=== PATIENT | female | born 1950 | race Caucasian/White ===

== ENCOUNTER → 2017-05-29 09:09 | Outpatient (CLI) | payer OTHER, SELFPAY ==
--- NOTE | 2017-05-29 10:12 | US_ITS ---
STUDY: ABDOMINAL ULTRASOUND - RIGHT UPPER QUADRANT REASON FOR VISIT: Female, 66 years old. Abnormal liver enzymes. TECHNIQUE: Ultrasound evaluation of the right upper quadrant was performed with real-time and static le-scale imaging. TECHNICAL QUALITY: Adequate. COMPARISON: None. FINDINGS: Liver: The liver measures 12.1 cm. There is normal echogenicity of the liver. The bile ducts are within normal limits. There is hepatic color flow. The direction of portal flow is hepatopetal. There is no demonstrated mass lesion. Gallbladder: Normal distended gallbladder. The gallbladder wall measures 1.6 mm. There is a negative sonographic Schilling's sign. There is no pericholecystic fluid. There are no gallstones. Common Bile Duct (C.B.D.): The common bile duct measures 4.7 mm. Pancreas: Normal size of the head, body and tail of the pancreas. There is normal echogenicity of the pancreas. There is no demonstrated pancreatic mass or cyst. Right Kidney: Normal size of the right kidney. The right kidney measures 8.5 cm x 4.4 cm x 4.2 cm. Normal renal cortex. The right cortex measures 1.2 cm. There is a 6 mm x 5 mm x 6 mm renal cyst. There is no right hydronephrosis. US/Liver IMPRESSION: Small right renal cyst. Electronically Signed: Bandar Ponce MD at 15:28 EST Tel [phone], Service support ,
== END ==
PROVIDERS: Family Provider Family Medicine; PCP Family Medicine; Visit Provider Internal Medicine Rheumatology
DX: M06.4 Inflammatory polyarthropathy (principal); M15.9 Polyosteoarthritis, unspecified; M51.36 Other intervertebral disc degeneration, lumbar region; M50.30 Other cervical disc degeneration, unspecified cervical region; K21.9 Gastro-esophageal reflux disease without esophagitis
CPT/HCPCS: 76705

== ENCOUNTER → 2017-06-16 07:35 | Outpatient (CLI) | payer OTHER, SELFPAY ==
[2017-06-16 10:26] LABS: AST(SGOT) 44 U/L (15-37); Alanine Aminotransfer ALT/SGPT 61 U/L (13-56); Albumin, Serum 3.8 g/dL (3.2-5.0); Alkaline Phosphatase 116 U/L (45-117); Bilirubin, Direct 0.13 mg/dL (0.00-0.30); Globulin 3.7 g/dL (2.2-4.2); Protein, Total 7.5 g/dL (6.4-8.2)
== END ==
PROVIDERS: Family Provider Family Medicine; PCP Family Medicine; Visit Provider Internal Medicine Rheumatology
DX: M06.4 Inflammatory polyarthropathy (principal); M51.36 Other intervertebral disc degeneration, lumbar region; M50.30 Other cervical disc degeneration, unspecified cervical region; M15.9 Polyosteoarthritis, unspecified; K21.9 Gastro-esophageal reflux disease without esophagitis
CPT/HCPCS: 36415; 80076

== ENCOUNTER → 2017-09-01 07:16 | Outpatient (CLI) | payer OTHER, SELFPAY ==
[2017-09-01 09:53] LABS: Absolute Neutrophil Count 2.8 X10^3/uL (2.0-7.7); Basophil# 0.07 X10^3/uL; Basophil% 1.4 % (0-1); Eosinophil# 0.28 X10^3/uL; Eosinophils% 5.5 % (0-5); Hematocrit 46.4 % (37-47); Hemoglobin 15.7 g/dl (12.0-15.0); Lymphocyte % 21.4 % (19-41); Mean Corp Hgb Conc 33.8 g/gl (32-36); Mean Corpuscular Hgb 30.3 pg (27.0-32.0); Mean Corpuscular Volume 89.6 fL (81-99); Mean Platelet Vol. 10.5 fl (6.2-12.0); Monocyte# 0.85 X10^3/uL; Monocyte% 16.6 % (0-10); Neutrophil # 2.83 X10^3/uL (2.7-7.7); Neutrophil % 55.1 % (47-70); Platelet Count 264 K/mm3 (150-450); RBC Distribution Width CV 12.9 % (11.6-14.6); RBC Distribution Width SD 42.7 fl (35.1-43.9); Red Blood Count 5.18 M/mm3 (4.2-5.4); White Blood Count 5.1 K/mm3 (4.4-11.0)
[2017-09-01 10:14] LABS: POSITIVE COUNT NO; POSITIVE DIFFERENTIAL NO; POSITIVE MORPHOLOGY NO
[2017-09-01 10:28] LABS: ALB/GLOB Ratio 0.9 RATIO (0.9-2.4); AST(SGOT) 73 U/L (15-37); Alanine Aminotransfer ALT/SGPT 124 U/L (13-56); Albumin, Serum 3.5 g/dL (3.2-5.0); Alkaline Phosphatase 156 U/L (45-117); Anion Gap 7 (5-15); BUN 15 mg/dL (7-18); BUN/Creat Ratio 18.2 RATIO (10-20); Calcium,Total 8.8 mg/dL (8.5-10.1); Chloride 106 mmol/L (98-107); Creatinine, Serum 0.82 mg/dL (0.55-1.02); EST Glomerular Filtration Rate 74 mL/min (>60); Est Glom Filt Rate - Afr Amer 89 mL/min (>60); Glucose 88 mg/dL (74-106); Potassium 3.8 mmol/L (3.5-5.1); Protein, Total 7.5 g/dL (6.4-8.2); Sodium Level 143 mmol/L (136-145)
== END ==
PROVIDERS: Family Provider Family Medicine; PCP Family Medicine; Visit Provider Internal Medicine Rheumatology
DX: M06.4 Inflammatory polyarthropathy (principal); M15.9 Polyosteoarthritis, unspecified; M35.00 Sjogren syndrome, unspecified; K21.9 Gastro-esophageal reflux disease without esophagitis; M51.36 Other intervertebral disc degeneration, lumbar region; M50.30 Other cervical disc degeneration, unspecified cervical region
CPT/HCPCS: 36415; 80053; 85025

== ENCOUNTER → 2017-10-01 15:42 | Outpatient (CLI) | payer OTHER, SELFPAY ==
--- NOTE | 2017-10-01 15:42 | DT_ITS ---
This patient was seen during an EMR downtime September 29, 2017 - October 06, 2017. This patient may have a combination of paper and electronic documentation or all paper documentation. All documentation is viewable within the e-chart portion of [facility] for each patient visit.
[2017-10-06 15:37] LABS: Ferritin 106 ng/mL (8-252)
[2017-10-06 15:38] LABS: AST(SGOT) 28 U/L (15-37); Alanine Aminotransfer ALT/SGPT 41 U/L (13-56); Alkaline Phosphatase 104 U/L (45-117); Bilirubin, Direct 0.13 mg/dL (0.00-0.30); Globulin 3.9 g/dL (2.2-4.2); Protein, Total 7.9 g/dL (6.4-8.2)
== END ==
PROVIDERS: Family Provider Family Medicine; PCP Family Medicine; Visit Provider Internal Medicine Gastroenterology
DX: K75.9 Inflammatory liver disease, unspecified (principal)
CPT/HCPCS: 36415; 80076; 82103; 82390; 82728; 83516

== ENCOUNTER → 2017-11-18 07:01 | Outpatient (CLI) | payer OTHER, SELFPAY ==
[2017-11-18 10:19] LABS: Absolute Lymphocyte Count 1.35 X10^3/ul (0.83-4.51); Basophil# 0.05 X10^3/uL; Eosinophil# 0.17 X10^3/uL; Eosinophils% 3.2 % (0-5); Hematocrit 45.9 % (37-47); Hemoglobin 15.4 g/dl (12.0-15.0); Lymphocyte # 1.35 X10^3/ul (4.0); Lymphocyte % 25.8 % (19-41); Mean Corp Hgb Conc 33.6 g/gl (32-36); Mean Corpuscular Hgb 30.4 pg (27.0-32.0); Mean Corpuscular Volume 90.7 fL (81-99); Mean Platelet Vol. 10.2 fl (6.2-12.0); Monocyte# 0.68 X10^3/uL; Neutrophil # 2.99 X10^3/uL (2.7-7.7); Platelet Count 273 K/mm3 (150-450); RBC Distribution Width CV 12.8 % (11.6-14.6); RBC Distribution Width SD 42.1 fl (35.1-43.9); Red Blood Count 5.06 M/mm3 (4.2-5.4); White Blood Count 5.2 K/mm3 (4.4-11.0)
[2017-11-18 10:25] LABS: POSITIVE COUNT NO; POSITIVE DIFFERENTIAL NO; POSITIVE MORPHOLOGY NO
[2017-11-18 10:37] LABS: ALB/GLOB Ratio 0.9 RATIO (0.9-2.4); AST(SGOT) 51 U/L (15-37); Alanine Aminotransfer ALT/SGPT 81 U/L (13-56); Albumin, Serum 3.6 g/dL (3.2-5.0); Alkaline Phosphatase 136 U/L (45-117); Anion Gap 4 (5-15); BUN 12 mg/dL (7-18); BUN/Creat Ratio 12.8 RATIO (10-20); Chloride 105 mmol/L (98-107); Creatinine, Serum 0.93 mg/dL (0.55-1.02); EST Glomerular Filtration Rate 64 mL/min (>60); Est Glom Filt Rate - Afr Amer 77 mL/min (>60); Globulin 3.9 g/dL (2.2-4.2); Glucose 83 mg/dL (74-106); Potassium 3.8 mmol/L (3.5-5.1); Protein, Total 7.5 g/dL (6.4-8.2); Sodium Level 140 mmol/L (136-145)
== END ==
PROVIDERS: Family Provider Family Medicine; PCP Family Medicine; Visit Provider Internal Medicine Rheumatology
DX: M06.4 Inflammatory polyarthropathy (principal); M15.9 Polyosteoarthritis, unspecified; M35.00 Sjogren syndrome, unspecified; M51.36 Other intervertebral disc degeneration, lumbar region; M50.30 Other cervical disc degeneration, unspecified cervical region; K21.9 Gastro-esophageal reflux disease without esophagitis
CPT/HCPCS: 36415; 80053; 85025

== ENCOUNTER → 2018-01-02 07:06 | Outpatient (CLI) | payer OTHER, SELFPAY ==
[2018-01-02 11:42] LABS: AST(SGOT) 65 U/L (15-37); Alanine Aminotransfer ALT/SGPT 73 U/L (13-56); Albumin, Serum 3.6 g/dL (3.2-5.0); Alkaline Phosphatase 116 U/L (45-117); Bilirubin, Direct 0.06 mg/dL (0.00-0.30); CRP < 2.90 mg/L (0.0-3.0); GGTP 161 U/L (5-55); Globulin 3.8 g/dL (2.2-4.2); Protein, Total 7.4 g/dL (6.4-8.2)
== END ==
PROVIDERS: Family Provider Family Medicine; PCP Family Medicine; Visit Provider Internal Medicine Gastroenterology
DX: K75.9 Inflammatory liver disease, unspecified (principal)
CPT/HCPCS: 36415; 80076; 82977; 86140

== ENCOUNTER → 2018-05-11 07:03 | Outpatient (CLI) | payer OTHER, SELFPAY ==
[2018-05-11 10:09] LABS: Absolute Neutrophil Count 2.8 X10^3/uL (2.0-7.7); Basophil# 0.05 X10^3/uL; Eosinophil# 0.17 X10^3/uL; Eosinophils% 3.4 % (0-5); Hemoglobin 15.9 g/dl (12.0-15.0); Lymphocyte % 27.7 % (19-41); Mean Corp Hgb Conc 33.8 g/gl (32-36); Mean Corpuscular Hgb 30.3 pg (27.0-32.0); Mean Corpuscular Volume 89.7 fL (81-99); Mean Platelet Vol. 10.3 fl (6.2-12.0); Monocyte# 0.65 X10^3/uL; Monocyte% 12.8 % (0-10); Neutrophil # 2.79 X10^3/uL (2.7-7.7); Neutrophil % 55.1 % (47-70); Platelet Count 307 K/mm3 (150-450); RBC Distribution Width CV 12.8 % (11.6-14.6); RBC Distribution Width SD 42.3 fl (35.1-43.9); Red Blood Count 5.24 M/mm3 (4.2-5.4); White Blood Count 5.1 K/mm3 (4.4-11.0)
[2018-05-11 10:18] LABS: AST(SGOT) 40 U/L (15-37); Alanine Aminotransfer ALT/SGPT 72 U/L (13-56); Albumin, Serum 3.7 g/dL (3.2-5.0); Alkaline Phosphatase 129 U/L (45-117); Anion Gap 6 (5-15); BUN 17 mg/dL (7-18); BUN/Creat Ratio 19.1 RATIO (10-20); Calcium,Total 8.7 mg/dL (8.5-10.1); Chloride 105 mmol/L (98-107); Creatinine, Serum 0.89 mg/dL (0.55-1.02); EST Glomerular Filtration Rate 68 mL/min (>60); Est Glom Filt Rate - Afr Amer 82 mL/min (>60); Globulin 3.8 g/dL (2.2-4.2); Glucose 90 mg/dL (74-106); POSITIVE COUNT NO; POSITIVE DIFFERENTIAL NO; POSITIVE MORPHOLOGY NO; Potassium 3.8 mmol/L (3.5-5.1); Protein, Total 7.5 g/dL (6.4-8.2); Sodium Level 141 mmol/L (136-145)
== END ==
PROVIDERS: Family Provider Family Medicine; PCP Family Medicine; Referring Provider Internal Medicine Rheumatology; Visit Provider Internal Medicine Rheumatology
DX: M06.4 Inflammatory polyarthropathy (principal); M15.9 Polyosteoarthritis, unspecified; M35.00 Sjogren syndrome, unspecified; M51.36 Other intervertebral disc degeneration, lumbar region; M50.30 Other cervical disc degeneration, unspecified cervical region; K21.9 Gastro-esophageal reflux disease without esophagitis
CPT/HCPCS: 36415; 80053; 85025

== ENCOUNTER → 2018-07-20 08:10 | Outpatient (CLI) | payer OTHER, SELFPAY ==
--- NOTE | 2018-07-20 08:13 | BI_ITS ---
MAMMOGRAPHY - BILATERAL SCREENING REASON FOR EXAM: Female, 68 years old. Routine annual screening examination. PERTINENT HISTORY: Aunt with breast cancer. TECHNIQUE: Digital bilateral breast silvia (3D mammographic acquisition) in the CC and MLO projections. 2-D mediolateral oblique (MLO) and craniocaudad (CC) views of both breasts were obtained. CAD: Full Field Digital Mammography with Computer Added Detection was performed. COMPARISON: Comparison is made with prior study dated May 12, 2017 and March 14, 2016. FINDINGS: Breast Composition: The breasts are heterogeneously dense, which may obscure small masses. There are no dominant masses or suspicious calcifications. Stable appearance of the bilateral axillary lymph nodes. No other significant abnormalities are identified. There has been no significant change since the prior study. BI/SCREENING MAMM (CAD), BILAT IMPRESSION: Stable bilateral screening mammogram. Yearly follow-up mammogram recommended. (A) ASSESSMENT CATEGORY: BIRADS Category 2: Benign. A letter regarding these results will be sent to the patient by the facility within 30 days. Approximately 10% of breast cancers are not detected by mammography. A normal mammogram should not delay biopsy of a clinically suspicious abnormality. [id number] Electronically Signed: Bandar Ponce, at 9:42 EDT , Service support ,
== END ==
PROVIDERS: Family Provider Family Medicine; PCP Family Medicine; Visit Provider Obstetrics & Gynecology
DX: Z12.31 Encounter for screening mammogram for malignant neoplasm of breast (principal)
CPT/HCPCS: 77063; 77067

== ENCOUNTER → 2020-08-23 11:56 | Outpatient (CLI) | payer MEDICARE, OTHER, SELFPAY ==
[2020-08-23 15:15] LABS: Absolute Lymphocyte Count 1.55 X10^3/uL (0.83-4.51); Basophil# 0.07 X10^3/uL; Basophil% 1.3 % (0-1); Eosinophil# 0.18 X10^3/uL; Eosinophils% 3.3 % (0-5); Hematocrit 47.6 % (37-47); Hemoglobin 15.4 g/dL (12.0-15.0); Lymphocyte # 1.55 X10^3/ul (0.83-4.51); Lymphocyte % 28.7 % (19-41); Mean Corp Hgb Conc 32.4 g/dL (32-36); Mean Corpuscular Hgb 29.4 pg (27.0-32.0); Mean Platelet Vol. 10.7 fl (6.2-12.0); Monocyte% 11.1 % (0-10); NRBC Flagged by Analyzer 0 % (0-5); Neutrophil # 2.99 X10^3/uL (2.7-7.7); Neutrophil % 55.2 % (47-70); Platelet Count 272 K/mm3 (150-450); RBC Distribution Width CV 12.7 % (11.6-14.6); RBC Distribution Width SD 42.1 fl (35.1-43.9); Red Blood Count 5.23 M/mm3 (4.2-5.4); White Blood Count 5.4 K/mm3 (4.4-11.0)
[2020-08-23 15:41] LABS: ALB/GLOB Ratio 0.9 RATIO (0.9-2.4); AST(SGOT) 31 U/L (15-37); Alanine Aminotransfer ALT/SGPT 59 U/L (13-56); Albumin, Serum 3.5 g/dL (3.2-5.0); Alkaline Phosphatase 128 U/L (45-117); Anion Gap 3 (5-15); BUN 16 mg/dL (7-18); BUN/Creat Ratio 18.9 RATIO (10-20); Calcium,Total 9.4 mg/dL (8.5-10.1); Chloride 105 mmol/L (98-107); Cholesterol 193 mg/dL (200); Creatinine, Serum 0.84 mg/dL (0.55-1.02); EST Glomerular Filtration Rate 71 mL/min (>60); Est Glom Filt Rate - Afr Amer 86 mL/min (>60); Ferritin 110 ng/mL (8-252); Glucose 89 mg/dL (74-106); High Density Lipoprotein 53 mg/dL; Iron 110 ug/dL (50-170); Iron Binding Capacity,Total 379 ug/dL (250-450); Protein, Total 7.5 g/dL (6.4-8.2); Sodium Level 138 mmol/L (136-145); T4 Free Direct 0.74 ng/dL (0.76-1.46); Thyroid Stim Hormone (TSH) 2.52 uIU/mL (0.358-3.74); Triglycerides 96 mg/dL; Very Low Density Lipoprotein 19 mg/dL (5-40)
[2020-08-24 08:40] LABS: Vitamin D,25 Hydroxy 29.1 ng/mL
== END ==
PROVIDERS: PCP Family Medicine; Referring Provider Family Medicine; Visit Provider Family Medicine
DX: D75.1 Secondary polycythemia (principal); E55.9 Vitamin D deficiency, unspecified; E03.9 Hypothyroidism, unspecified; R79.89 Other specified abnormal findings of blood chemistry
CPT/HCPCS: 36415; 80053; 80061; 82306; 82728; 83540; 83550; 84432; 84439; 84443; 84466; 85025; 86376; 86800

== ENCOUNTER → 2020-08-29 09:12 | Outpatient (CLI) | payer MEDICARE, OTHER, SELFPAY ==
--- NOTE | 2020-08-29 09:17 | US_ITS ---
STUDY: THYROID ULTRASOUND REASON FOR EXAM: Female, 70 years old. Thyroid nodule. TECHNIQUE: Ultrasound evaluation of the thyroid was performed with real-time and static le-scale imaging. COMPARISON: None. FINDINGS: RIGHT LOBE: The right lobe of the thyroid gland measures 4.7 cm x 1.5 cm x 1.3 cm. There is a homogeneous echotexture. There is a 5 mm x 3 mm x 3 mm solid/cystic nodule in the midportion of the right lobe. LEFT LOBE: The left lobe of the thyroid gland measures 3.9 cm x 1.5 cm x 1 cm. There is a homogeneous echotexture. There are no demonstrated solid, cystic or complex lesions. ISTHMUS: The isthmus measures 2 mm. The regional lymph nodes are normal. US/Thyroid IMPRESSION: There is a 5 mm x 3 mm x 3 mm solid/cystic nodule in the midportion of the right lobe of the thyroid. Correlation with nuclear medicine thyroid uptake and scan is recommended. Electronically Signed: Bandar Ponce MD at 14:57 EDT , Service support ,
--- NOTE | 2020-08-29 09:51 | BD_ITS ---
STUDY: DUAL ENERGY X-RAY ABSORPTIOMETRY / DXA REASON FOR EXAM: Female, 70 years old. [id number] TECHNIQUE: Bone Mineral Density (BMD) measurements of lumbar spine and bilateral hips were obtained. COMPARISON: None. FINDINGS: Lumbar Spine (L1-L4): g/cm2 (0.916) / T-score (-2.4) / Z-score (-0.7) Findings are suggestive of osteopenia with a high fracture risk. Left Femur Total: g/cm2 (0.925) / T-score (-0.7) / Z-score (0.7) Left Femoral Neck: g/cm2 (0.938) / T-score (-0.7) / Z-score (0.9) Right Femur Total: g/cm2 (0.879) / T-score (-1.0) / Z-score (0.3) Right Femoral Neck: g/cm2 (0.939) / T-score (-0.7) / Z-score (0.9) BD/Dexa Bone Density Study IMPRESSION: The patient is considered osteopenic as outlined below according to World Alex Organization (WHO) criteria with a high fracture risk. Reference Information: The T-score is the number of standard deviations above or below the standard which is normal for young adults at their peak bone mineral density. The World Health Organization (WHO) interprets the T-scores as follows: Above -1 Normal bone density Between -1 and -2.5 Osteopenia Equal to / or below -2.5 Osteoporosis As a practical clinical guideline, osteopenia may be graded as follows: Mild -1 through -1.5 Moderate -1.6 through -2.0 Severe -2.1 through -2.4 The Z-score is the number of standard deviations above or below age-matched controls. A Z-score of less than -1.5 would be considered abnormal. References: 1. NIH Osteoporosis and Related Bone Diseases www osteo.org 2. International Society for Clinical Densitometry www iscd.org 3. National Osteoporosis Foundation www nof.org Electronically Signed: Bandar Ponce MD at 15:52 EDT , Service support ,
== END ==
PROVIDERS: PCP Family Medicine; Referring Provider Family Medicine; Visit Provider Family Medicine
DX: E04.1 Nontoxic single thyroid nodule (principal); Z78.0 Asymptomatic menopausal state; M85.80 Other specified disorders of bone density and structure, unspecified site
CPT/HCPCS: 76536; 77080

== ENCOUNTER → 2020-09-01 08:32 | Outpatient (CLI) | payer MEDICARE, OTHER, SELFPAY ==
[2020-09-11 10:00] LABS: Anti-Thyroglobulin AB 25.1 IU/mL (0.0-0.9); Thyroid Peroxidase AB 12 IU/mL (0-34)
== END ==
PROVIDERS: PCP Family Medicine; Referring Provider Family Medicine; Visit Provider Family Medicine
DX: R79.89 Other specified abnormal findings of blood chemistry (principal)
CPT/HCPCS: 36415; 84432; 86376; 86800

== ENCOUNTER → 2020-09-06 11:25 | Outpatient (CLI) | payer MEDICARE, OTHER, SELFPAY ==
[2020-09-06 16:42] LABS: AST(SGOT) 47 U/L (15-37); Alanine Aminotransfer ALT/SGPT 76 U/L (13-56); Albumin, Serum 3.4 g/dL (3.2-5.0); Alkaline Phosphatase 142 U/L (45-117); Globulin 3.7 g/dL (2.2-4.2); Protein, Total 7.1 g/dL (6.4-8.2); T4 Free Direct 0.73 ng/dL (0.76-1.46); Thyroid Stim Hormone (TSH) 2.56 uIU/mL (0.358-3.74)
== END ==
PROVIDERS: PCP Family Medicine; Referring Provider Family Medicine; Visit Provider Family Medicine
DX: R79.89 Other specified abnormal findings of blood chemistry (principal)
CPT/HCPCS: 36415; 80076; 84439; 84443

== ENCOUNTER → 2020-09-27 09:43 | Outpatient (CLI) | payer MEDICARE, OTHER, SELFPAY ==
--- NOTE | 2020-09-27 09:47 | RAD_ITS ---
STUDY: X-RAY - LUMBAR SPINE REASON FOR EXAM: Female, 70 years old. Facet arthropathy. TECHNIQUE: 3 view(s) of the lumbar spine were obtained. COMPARISON: None FINDINGS: Normal lumbar lordosis. There is no substantial scoliosis. There is a normal alignment of the vertebrae. Anterior spondylosis at the L1-L2 level. There is multi-level degenerative disc disease with multi-level disc space narrowing most pronounced at the L5-S1 level.. Facet joint osteoarthritis. The soft tissue structures are unremarkable. RAD/Lumbar Spine 2 or 3 Views IMPRESSION: Degenerative changes of the spine, as detailed above. Electronically Signed: Bandar Ponce MD at 10:44 EDT , Service support ,
[2020-09-27 12:37] LABS: AST(SGOT) 75 U/L (15-37); Alanine Aminotransfer ALT/SGPT 132 U/L (13-56); Albumin, Serum 4.1 g/dL (3.2-5.0); Alkaline Phosphatase 179 U/L (45-117); Bilirubin, Direct 0.19 mg/dL (0.00-0.30); Ferritin 131 ng/mL (8-252); Globulin 3.5 g/dL (2.2-4.2); Protein, Total 7.6 g/dL (6.4-8.2); T4 Free Direct 0.82 ng/dL (0.76-1.46); Thyroid Stim Hormone (TSH) 3.51 uIU/mL (0.358-3.74)
[2020-09-28 09:00] LABS: Alpha Antitrypsin Serum 113 mg/dL (101-187)
[2020-10-04 16:09] LABS: Ceruloplasmin 28.1 mg/dL (19.0-39.0); Endomysial Antibody IgA Negative (Negative); Immunoglobulin A 276 mg/dL (87-352); Transferrin 248 mg/dL (192-364)
[2020-10-04 20:27] LABS: Anti-Smooth Muscle ABS 8 Units (0-19); Deamidated Gliadin IgA 6 units (0-19); Deamidated Gliadin IgG 4 units (0-19); Thyroglobulin RIA 6.9 ng/mL (.); Thyroid Peroxidase AB 21 IU/mL (0-34); t-Transglutaminase IgA <2 U/mL (0-3)
== END ==
PROVIDERS: PCP Family Medicine; Referring Provider Family Medicine; Visit Provider Family Medicine
DX: M47.819 Spondylosis without myelopathy or radiculopathy, site unspecified (principal); E03.8 Other specified hypothyroidism; R79.89 Other specified abnormal findings of blood chemistry
CPT/HCPCS: 36415; 72100; 80076; 82103; 82390; 82728; 82784; 83516; 84432; 84439; 84443; 84466; 86255; 86376; 86800

== ENCOUNTER → 2020-10-02 08:42 | Outpatient (CLI) | payer MEDICARE, OTHER, SELFPAY ==
--- NOTE | 2020-10-02 08:44 | US_ITS ---
STUDY: ABDOMINAL ULTRASOUND - RIGHT UPPER QUADRANT REASON FOR VISIT: Female, 70 years old . Elevated liver enzymes. TECHNIQUE: Ultrasound evaluation of the right upper quadrant was performed with real-time and static le-scale imaging. TECHNICAL QUALITY: Adequate. COMPARISON: Comparison is made with prior examination dated 05/29/2017. FINDINGS: Liver: The liver measures 14 cm. There is normal echogenicity of the liver. The bile ducts are within normal limits. There is hepatic color flow. The direction of portal flow is hepatopetal. There is no demonstrated mass lesion. Gallbladder: Normal distended gallbladder. The gallbladder wall measures 2.4 mm. There is a negative sonographic Schilling''s sign. There is no pericholecystic fluid. There are no gallstones. Common Bile Duct (C.B.D.): The common bile duct measures 5.1 mm. Pancreas: Normal size of the head, body and tail of the pancreas. There is increased echogenicity of the pancreas. There is no demonstrated pancreatic mass or cyst. Right Kidney: Normal size of the right kidney. The right kidney measures 9 cm x 5 cm x 4.1 cm. Normal renal cortex. The right cortex measures 1.5 cm. There is a 7 mm x 8 mm x 5 mm cyst. There is no right hydronephrosis. US/Abdomen Limited IMPRESSION: Small right renal cyst. There is no change since prior study. Electronically Signed: Bandar Ponce MD at 13:18 EDT , Service support ,
== END ==
PROVIDERS: PCP Family Medicine; Referring Provider Family Medicine; Visit Provider Family Medicine
DX: R79.89 Other specified abnormal findings of blood chemistry (principal)
CPT/HCPCS: 76705

== ENCOUNTER → 2020-11-09 07:29 | Outpatient (CLI) | payer MEDICARE, OTHER, SELFPAY ==
--- NOTE | 2020-11-09 07:31 | BI_ITS ---
MAMMOGRAPHY - BILATERAL SCREENING REASON FOR EXAM: Female, 70 years old. Routine annual screening examination. PERTINENT HISTORY: Aunt with breast cancer. TECHNIQUE: Digital bilateral breast carmina (3D mammographic acquisition) in the CC and MLO projections. 2-D mediolateral oblique (MLO) and craniocaudad (CC) views of both breasts were obtained. CAD: Full Field Digital Mammography with Computer Added Detection was performed. COMPARISON: Comparison is made with prior study of 07/20/2018 and 05/12/2017. FINDINGS: Breast Composition: The breasts are extremely dense, which lowers the sensitivity of mammography. There are no dominant masses or suspicious calcifications. Stable small benign-appearing bilateral axillary lymph nodes. No other significant abnormalities are identified. There has been no significant change since the prior study. BI/SCRN MAMM (CAD)W/CARMINA BILAT IMPRESSION: Stable bilateral screening mammogram. Yearly follow-up mammogram recommended. (A) ASSESSMENT CATEGORY: BIRADS Category 2: Benign. A letter regarding these results will be sent to the patient by the facility within 30 days. Approximately 10% of breast cancers are not detected by mammography. A normal mammogram should not delay biopsy of a clinically suspicious abnormality. [id number] Electronically Signed: Bandar Ponce MD at 8:45 EDT , Service support ,
== END ==
PROVIDERS: PCP Family Medicine; Referring Provider Obstetrics & Gynecology; Visit Provider Obstetrics & Gynecology
DX: Z12.31 Encounter for screening mammogram for malignant neoplasm of breast (principal); Z80.3 Family history of malignant neoplasm of breast
CPT/HCPCS: 77063; 77067

== ENCOUNTER → 2021-01-18 09:41 | Outpatient (CLI) | payer MEDICARE, OTHER, SELFPAY ==
[2021-01-18 12:15] LABS: Absolute Lymphocyte Count 1.29 X10^3/uL (0.83-4.51); Basophil# 0.07 X10^3/uL; Basophil% 1.1 % (0-1); Eosinophil# 0.25 X10^3/uL; Hematocrit 45.6 % (37-47); Hemoglobin 15.2 g/dL (12.0-15.0); Lymphocyte # 1.29 X10^3/ul (0.83-4.51); Lymphocyte % 20.9 % (19-41); Mean Corp Hgb Conc 33.3 g/dL (32-36); Mean Corpuscular Volume 90.1 fL (81-99); Mean Platelet Vol. 10.1 fl (6.2-12.0); Monocyte# 0.61 X10^3/uL; Monocyte% 9.9 % (0-10); NRBC Flagged by Analyzer 0 % (0-5); Neutrophil # 3.95 X10^3/uL (2.7-7.7); Neutrophil % 63.9 % (47-70); Platelet Count 293 K/mm3 (150-450); RBC Distribution Width CV 12.5 % (11.6-14.6); Red Blood Count 5.06 M/mm3 (4.2-5.4); White Blood Count 6.2 K/mm3 (4.4-11.0)
[2021-01-18 12:30] LABS: Vitamin D,25 Hydroxy 50.4 ng/mL
[2021-01-18 12:44] LABS: ALB/GLOB Ratio 0.8 RATIO (0.9-2.4); AST(SGOT) 39 U/L (15-37); Alanine Aminotransfer ALT/SGPT 67 U/L (13-56); Albumin, Serum 3.2 g/dL (3.2-5.0); Alkaline Phosphatase 158 U/L (45-117); Anion Gap 6 (5-15); BUN 11 mg/dL (7-18); BUN/Creat Ratio 13.3 RATIO (10-20); Calcium,Total 8.8 mg/dL (8.5-10.1); Chloride 105 mmol/L (98-107); Cholesterol 183 mg/dL (200); Creatinine, Serum 0.83 mg/dL (0.55-1.02); EST Glomerular Filtration Rate 73 mL/min (>60); Est Glom Filt Rate - Afr Amer 88 mL/min (>60); Glucose 98 mg/dL (74-106); High Density Lipoprotein 54 mg/dL; Potassium 3.9 mmol/L (3.5-5.1); Protein, Total 7.2 g/dL (6.4-8.2); Sodium Level 139 mmol/L (136-145); T4 Free Direct 0.82 ng/dL (0.76-1.46); Thyroid Stim Hormone (TSH) 2.84 uIU/mL (0.358-3.74); Triglycerides 78 mg/dL; Very Low Density Lipoprotein 16 mg/dL (5-40)
== END ==
PROVIDERS: PCP Family Medicine; Referring Provider Family Medicine; Visit Provider Family Medicine
DX: D75.1 Secondary polycythemia (principal); E03.8 Other specified hypothyroidism; M85.80 Other specified disorders of bone density and structure, unspecified site
CPT/HCPCS: 36415; 80053; 80061; 82306; 84439; 84443; 85025

== ENCOUNTER → 2021-03-09 10:59 | Outpatient (CLI) | payer MEDICARE, OTHER, SELFPAY ==
[2021-03-09 12:33] LABS: Erythrocyte Sedimentation Rate 13 mm/hr (0-30)
[2021-03-09 12:59] LABS: Rheumatoid Factor < 10.0 IU/mL (<15); T4 Free Direct 0.84 ng/dL (0.76-1.46); Thyroid Stim Hormone (TSH) 2.03 uIU/mL (0.358-3.74)
[2021-03-12 08:07] LABS: ANTINUCLEAR ANTIBODIES DIRECT Negative (Negative)
== END ==
PROVIDERS: PCP Family Medicine; Referring Provider Family Medicine; Visit Provider Family Medicine
DX: E03.8 Other specified hypothyroidism (principal); M25.40 Effusion, unspecified joint
CPT/HCPCS: 36415; 84439; 84443; 85652; 86038; 86431

== ENCOUNTER 2021-06-28 08:12 | Outpatient (CLI) | payer MEDICARE, OTHER, SELFPAY ==
[2021-06-28 10:33] LABS: Absolute Lymphocyte Count 1.25 X10^3/uL (0.83-4.51); Basophil# 0.07 X10^3/uL; Basophil% 1.3 % (0-1); Eosinophil# 0.26 X10^3/uL; Hematocrit 47.4 % (37-47); Hemoglobin 16.2 g/dL (12.0-15.0); Lymphocyte # 1.25 X10^3/ul (0.83-4.51); Lymphocyte % 24.1 % (19-41); Mean Corp Hgb Conc 34.2 g/dL (32-36); Mean Corpuscular Hgb 30.5 pg (27.0-32.0); Mean Corpuscular Volume 89.1 fL (81-99); Mean Platelet Vol. 10.9 fl (6.2-12.0); Monocyte# 0.62 X10^3/uL; Monocyte% 11.9 % (0-10); NRBC Flagged by Analyzer 0 % (0-5); Neutrophil # 2.98 X10^3/uL (2.7-7.7); Neutrophil % 57.5 % (47-70); Platelet Count 285 K/mm3 (150-450); RBC Distribution Width CV 12.5 % (11.6-14.6); Red Blood Count 5.32 M/mm3 (4.2-5.4); White Blood Count 5.2 K/mm3 (4.4-11.0)
[2021-06-28 10:45] LABS: Vitamin D,25 Hydroxy 49.2 ng/mL
[2021-06-28 10:58] LABS: ALB/GLOB Ratio 0.9 RATIO (0.9-2.4); AST(SGOT) 32 U/L (15-37); Alanine Aminotransfer ALT/SGPT 55 U/L (13-56); Albumin, Serum 3.4 g/dL (3.2-5.0); Alkaline Phosphatase 133 U/L (45-117); Anion Gap 5 (5-15); BUN 14 mg/dL (7-18); BUN/Creat Ratio 15.3 RATIO (10-20); Calcium,Total 9.1 mg/dL (8.5-10.1); Chloride 108 mmol/L (98-107); Creatinine, Serum 0.92 mg/dL (0.55-1.02); EST Glomerular Filtration Rate 65 mL/min (>60); Est Glom Filt Rate - Afr Amer 78 mL/min (>60); Globulin 3.9 g/dL (2.2-4.2); Glucose 98 mg/dL (74-106); Protein, Total 7.3 g/dL (6.4-8.2); Sodium Level 139 mmol/L (136-145); T4 Free Direct 0.78 ng/dL (0.76-1.46); Thyroid Stim Hormone (TSH) 3.96 uIU/mL (0.358-3.74)
== END 2021-06-28 23:59 | disposition home or self-care (01) ==
LOC: MFPLAB 08:17
PROVIDERS: PCP Family Medicine; Referring Provider Family Medicine; Visit Provider Family Medicine
DX: E03.8 Other specified hypothyroidism (principal); E55.9 Vitamin D deficiency, unspecified
CPT/HCPCS: 36415; 80053; 82306; 84439; 84443; 85025

== ENCOUNTER → 2021-09-27 | Outpatient (CLI) | payer MEDICARE, OTHER, SELFPAY ==
[2021-09-27 10:06] LABS: Absolute Neutrophil Count 2.8 X10^3/uL (2.0-7.7); Basophil# 0.07 X10^3/uL; Basophil% 1.4 % (0-1); Eosinophil# 0.21 X10^3/uL; Eosinophils% 4.2 % (0-5); Hematocrit 46.3 % (37-47); Hemoglobin 15.3 g/dL (12.0-15.0); Lymphocyte % 25.9 % (19-41); Mean Corpuscular Hgb 29.9 pg (27.0-32.0); Mean Corpuscular Volume 90.4 fL (81-99); Mean Platelet Vol. 10.3 fl (6.2-12.0); Monocyte# 0.65 X10^3/uL; Monocyte% 12.9 % (0-10); NRBC Flagged by Analyzer 0 % (0-5); Neutrophil # 2.78 X10^3/uL (2.7-7.7); Neutrophil % 55.4 % (47-70); Platelet Count 293 K/mm3 (150-450); RBC Distribution Width CV 12.9 % (11.6-14.6); RBC Distribution Width SD 42.8 fl (35.1-43.9); Red Blood Count 5.12 M/mm3 (4.2-5.4)
[2021-09-27 10:30] LABS: ALB/GLOB Ratio 0.8 RATIO (0.9-2.4); AST(SGOT) 86 U/L (15-37); Alanine Aminotransfer ALT/SGPT 125 U/L (13-56); Albumin, Serum 3.3 g/dL (3.2-5.0); Alkaline Phosphatase 179 U/L (45-117); Anion Gap 4 (5-15); BUN 15 mg/dL (7-18); BUN/Creat Ratio 17.8 RATIO (10-20); Calcium,Total 9.1 mg/dL (8.5-10.1); Chloride 107 mmol/L (98-107); Creatinine, Serum 0.84 mg/dL (0.55-1.02); EST Glomerular Filtration Rate 71 mL/min (>60); Est Glom Filt Rate - Afr Amer 86 mL/min (>60); Glucose 95 mg/dL (74-106); Potassium 4.1 mmol/L (3.5-5.1); Protein, Total 7.3 g/dL (6.4-8.2); Sodium Level 140 mmol/L (136-145); T4 Free Direct 1.18 ng/dL (0.76-1.46)
[2021-09-27 13:43] LABS: Vitamin D,25 Hydroxy 39.3 ng/mL
[2021-09-28 16:30] LABS: Ferritin 132 ng/mL (8-252); Iron 90 ug/dL (50-170); Iron Binding Capacity,Total 306 ug/dL (250-450); PERCENT IRON SATURATION 29.4 % (15.0-55.0)
[2021-09-30 10:17] LABS: Transferrin 232 mg/dL (192-364)
== END | disposition home or self-care (01) ==
LOC: MFPLAB 08:06
PROVIDERS: PCP Family Medicine; Visit Provider Family Medicine
DX: E03.8 Other specified hypothyroidism (principal); D75.1 Secondary polycythemia; E55.9 Vitamin D deficiency, unspecified; D50.9 Iron deficiency anemia, unspecified
CPT/HCPCS: 36415; 80053; 82306; 82728; 83540; 83550; 84439; 84466; 85025

== ENCOUNTER → 2021-10-19 | Outpatient (CLI) | payer MEDICARE, OTHER, SELFPAY ==
--- NOTE | 2021-10-19 12:04 | US_ITS ---
EXAM: US SOFT TISSUES HEAD AND NECK, THYROID CLINICAL INDICATION: nodule TECHNIQUE: Greyscale and color doppler imaging was performed of the thyroid gland. This report was created using [employer] report generation technology. COMPARISON: 08/29/2020. FINDINGS: LEFT THYROID LOBE: Left lobe measures 3.6 x 1.2 x 0.9 cm. Homogeneous echotexture with normal vascularity. No thyroid nodules are present. RIGHT THYROID LOBE: Right lobe measures 4.5 x 1.3 x 1.3 cm. Previously noted nodule in the right lobe now has a more solid hypoechoic appearance and measures 4 x 3 x 1 mm, is taller than wide with smooth margin and no echogenic foci. TI-RADS points: 6. TI-RADS category: TR4. This nodule is moderately suspicious but no FNA or follow-up is necessary given the small size of this nodule. ISTHMUS: The isthmus measures 2 mm. No thyroid nodules are present. US/Thyroid IMPRESSION: The small nodule in the right lobe of the thyroid has not increased in size but has a slightly more solid appearance. Because of its size, follow-up is not necessary. Electronically Signed: Rodney Dickson MD at 3:47 EDT ,
== END | disposition home or self-care (01) ==
LOC: US 11:56
PROVIDERS: PCP Family Medicine; Referring Provider Family Medicine; Visit Provider Family Medicine
DX: E04.1 Nontoxic single thyroid nodule (principal)
CPT/HCPCS: 76536

== ENCOUNTER → 2021-12-19 | Outpatient (CLI) | payer MEDICARE, OTHER, SELFPAY ==
[2021-12-19 15:53] LABS: Ammonia < 10.0 umol/L (11-32)
[2021-12-19 16:56] LABS: Erythrocyte Sedimentation Rate 19 mm/hr (0-30)
[2021-12-19 16:58] LABS: Absolute Lymphocyte Count 2.04 X10^3/uL (0.83-4.51); Absolute Neutrophil Count 4.4 X10^3/uL (2.0-7.7); Basophil# 0.07 X10^3/uL; Eosinophil# 0.15 X10^3/uL; Eosinophils% 2.1 % (0-5); Hematocrit 49.6 % (37-47); Hemoglobin 16.6 g/dL (12.0-15.0); Lymphocyte # 2.04 X10^3/ul (0.83-4.51); Lymphocyte % 28.2 % (19-41); Mean Corp Hgb Conc 33.5 g/dL (32-36); Mean Corpuscular Hgb 29.6 pg (27.0-32.0); Mean Corpuscular Volume 88.4 fL (81-99); Mean Platelet Vol. 10.4 fl (6.2-12.0); Monocyte# 0.54 X10^3/uL; Monocyte% 7.5 % (0-10); NRBC Flagged by Analyzer 0 % (0-5); Neutrophil # 4.42 X10^3/uL (2.7-7.7); Neutrophil % 61.1 % (47-70); Platelet Count 281 K/mm3 (150-450); RBC Distribution Width CV 12.4 % (11.6-14.6); RBC Distribution Width SD 40.4 fl (35.1-43.9); Red Blood Count 5.61 M/mm3 (4.2-5.4); White Blood Count 7.2 K/mm3 (4.4-11.0)
[2021-12-19 17:08] LABS: Prothrombin Time (Protime)PT. 12.7 SECONDS (11.7-14.9)
[2021-12-19 17:22] LABS: Vitamin D,25 Hydroxy 44.8 ng/mL
[2021-12-19 17:23] LABS: ALB/GLOB Ratio 0.9 RATIO (0.9-2.4); AST(SGOT) 51 U/L (15-37); Alanine Aminotransfer ALT/SGPT 77 U/L (13-56); Albumin, Serum 3.8 g/dL (3.2-5.0); Alkaline Phosphatase 157 U/L (45-117); Anion Gap 6 (5-15); BUN 13 mg/dL (7-18); BUN/Creat Ratio 15.8 RATIO (10-20); CPK Total, Creatine Kinase 101 U/L (26-192); CRP < 2.90 mg/L (0.0-3.0); Calcium,Total 9.1 mg/dL (8.5-10.1); Chloride 103 mmol/L (98-107); Creatinine, Serum 0.82 mg/dL (0.55-1.02); EST Glomerular Filtration Rate 73 mL/min (>60); Est Glom Filt Rate - Afr Amer 89 mL/min (>60); Ferritin 101 ng/mL (8-252); GGTP 214 U/L (5-55); Globulin 4.1 g/dL (2.2-4.2); Glucose 78 mg/dL (74-106); LDH 216 U/L (84-246); Protein, Total 7.9 g/dL (6.4-8.2); Sodium Level 139 mmol/L (136-145)
[2021-12-24 16:09] LABS: Anti-Centromere B Ab <0.2 AI (0.0-0.9); Anti-Chromatin <0.2 AI (0.0-0.9); Anti-Jo <0.2 AI (0.0-0.9); Anti-Scleroderma-70 AB 0.2 AI (0.0-0.9); RNP Ab 0.2 AI (0.0-0.9); SJOGREN'S Anti-SS-A test < 0.2 AI (0.0-0.9); SJOGREN'S Anti-SS-B test < 0.2 AI (0.0-0.9); Smith Ab <0.2 AI (0.0-0.9)
[2021-12-26 00:06] LABS: Alkaline Phosphatase, Serum 163 IU/L (44-121); Angiotensin Convert Enzyme 40 U/L (14-82); Bone Fraction 34 % (14-68); Ceruloplasmin 27.6 mg/dL (19.0-39.0); Cytoplasmic Ab (C-ANCA) <1:20 titer (Neg:<1:20); Haptoglobin 88 mg/dL (37-355); Intestinal Fraction 1 % (0-18); Liver Fraction 65 % (18-85)
[2021-12-26 09:23] LABS: Aldolase 7.9 U/L (3.3-10.3); Anti-Smooth Muscle ABS 10 Units (0-19); Copper, Serum or Plasma 130 ug/dL (80-158); Perinuclear Ab (P-ANCA) <1:20 titer (Neg:<1:20)
[2021-12-26 14:08] LABS: Anti-Mitochondrial AB <20.0 Units (0.0-20.0); Anti-dsDNA Ab <1 IU/mL (0-9); Vitamin D 1,25-Dihydroxy 31.4 pg/mL (24.8-81.5)
== END | disposition home or self-care (01) ==
LOC: LAB 14:21
PROVIDERS: PCP Family Medicine; Referring Provider Internal Medicine Gastroenterology; Visit Provider Internal Medicine Gastroenterology
DX: R79.89 Other specified abnormal findings of blood chemistry (principal); K76.9 Liver disease, unspecified
CPT/HCPCS: 36415; 80053; 82085; 82140; 82164; 82306; 82390; 82525; 82550; 82652; 82728; 82977; 83010; 83516; 83615; 84075; 84080; 85025; 85610; 85652; 86140; 86225; 86235; 86256; 86880

== ENCOUNTER → 2021-12-26 | Outpatient (CLI) | payer MEDICARE, OTHER, SELFPAY ==
--- NOTE | 2021-12-26 07:36 | US_ITS ---
STUDY: ABDOMINAL ULTRASOUND - RIGHT UPPER QUADRANT REASON FOR VISIT: Female, 71 years old ELEVATED LFTS TECHNIQUE: Ultrasound evaluation of the right upper quadrant was performed with real-time and static le-scale imaging. TECHNICAL QUALITY: Adequate. COMPARISON: Comparison made with prior examination dated 10/02/2020. FINDINGS: Liver: The liver measures 12.1 cm. There is normal echogenicity of the liver. The bile ducts are within normal limits. There is hepatic color flow. The direction of portal flow is hepatopetal. There is no demonstrated mass lesion. Gallbladder: Normal distended gallbladder. The gallbladder wall measures 2.1 mm. There is a negative sonographic Schilling''s sign. There is no pericholecystic fluid. There are no gallstones. Common Bile Duct (C.B.D.): The common bile duct measures 1.7 mm. Pancreas: Normal size of the head, body and tail of the pancreas. There is normal echogenicity of the pancreas. There is no demonstrated pancreatic mass or cyst. Right Kidney: Normal size of the right kidney. The right kidney measures 8.7 cm x 5.2 cm x 5.3 cm. Normal renal cortex. The right cortex measures 1.9 cm. There is a 1.2 cm x 0.9 cm x 0.9 cm renal cyst. There is no right hydronephrosis. US/Abdomen Limited IMPRESSION: Small right renal cyst. Electronically Signed: Bandar Ponce MD at 8:58 EDT ,
--- NOTE | 2021-12-26 07:36 | US_ITS ---
STUDY: ABDOMINAL ULTRASOUND - ELASTOGRAPHY REASON FOR VISIT: Female, 71 years old. Elevated function tests. TECHNIQUE: Liver stiffness measurements were obtained on a Samasource RS 85 ultrasound machine using a CA 1-7 probe following the SRU guidelines. 3 measurements were obtained using a 2-D-SWE method. The IQR/M was 17% suggesting a quality data set. TECHNICAL QUALITY: Adequate. COMPARISON: Comparison is made with prior study done earlier today. FINDINGS: Liver: There is no demonstrated mass lesion. Median liver stiffness measured 5.8 kPa. US/Elastography Parenchyma/Organ IMPRESSION: Liver stiffness measures 5.8 kPa compatible with F2-F3 (Mild to moderate liver fibrosis) Metavir score. Electronically Signed: Bandar Ponce MD at 9:01 EDT ,
== END | disposition home or self-care (01) ==
LOC: US 07:35
PROVIDERS: PCP Family Medicine; Visit Provider Internal Medicine Gastroenterology
DX: R79.89 Other specified abnormal findings of blood chemistry (principal)
CPT/HCPCS: 76705; 76981

== ENCOUNTER → 2022-01-29 | Outpatient (CLI) | payer MEDICARE, OTHER, SELFPAY ==
[2022-01-29 10:08] LABS: Absolute Lymphocyte Count 1.54 X10^3/uL (0.83-4.51); Absolute Neutrophil Count 5.1 X10^3/uL (2.0-7.7); Basophil# 0.07 X10^3/uL; Basophil% 0.9 % (0-1); Eosinophil# 0.19 X10^3/uL; Eosinophils% 2.5 % (0-5); Hematocrit 48.3 % (37-47); Hemoglobin 16.3 g/dL (12.0-15.0); Lymphocyte # 1.54 X10^3/ul (0.83-4.51); Lymphocyte % 20.5 % (19-41); Mean Corp Hgb Conc 33.7 g/dL (32-36); Mean Corpuscular Hgb 30.5 pg (27.0-32.0); Mean Corpuscular Volume 90.4 fL (81-99); Mean Platelet Vol. 9.9 fl (6.2-12.0); Monocyte# 0.59 X10^3/uL; Monocyte% 7.9 % (0-10); NRBC Flagged by Analyzer 0 % (0-5); Neutrophil % 67.9 % (47-70); Platelet Count 316 K/mm3 (150-450); RBC Distribution Width CV 13.1 % (11.6-14.6); RBC Distribution Width SD 43.3 fl (35.1-43.9); Red Blood Count 5.34 M/mm3 (4.2-5.4); White Blood Count 7.5 K/mm3 (4.4-11.0)
[2022-01-29 11:07] LABS: Vitamin D,25 Hydroxy 37.7 ng/mL
[2022-01-29 11:25] LABS: ALB/GLOB Ratio 0.8 RATIO (0.9-2.4); AST(SGOT) 59 U/L (15-37); Alanine Aminotransfer ALT/SGPT 95 U/L (13-56); Albumin, Serum 3.4 g/dL (3.2-5.0); Alkaline Phosphatase 163 U/L (45-117); Anion Gap 6 (5-15); BUN 16 mg/dL (7-18); Chloride 106 mmol/L (98-107); Cholesterol 206 mg/dL (200); Creatinine, Serum 0.89 mg/dL (0.55-1.02); EST Glomerular Filtration Rate 67 mL/min (>60); Est Glom Filt Rate - Afr Amer 81 mL/min (>60); Globulin 4.5 g/dL (2.2-4.2); Glucose 93 mg/dL (74-106); High Density Lipoprotein 60 mg/dL; Protein, Total 7.9 g/dL (6.4-8.2); Sodium Level 140 mmol/L (136-145); T4 Free Direct 0.77 ng/dL (0.76-1.46); Triglycerides 83 mg/dL; Very Low Density Lipoprotein 17 mg/dL (5-40)
[2022-01-29 15:26] LABS: Ferritin 70 ng/mL (8-252); Iron Binding Capacity,Total 307 ug/dL (250-450)
[2022-01-31 10:40] LABS: Transferrin 255 mg/dL (192-364)
== END | disposition home or self-care (01) ==
LOC: MFPLAB 08:08
PROVIDERS: PCP Family Medicine; Visit Provider Family Medicine
DX: D75.1 Secondary polycythemia (principal); E03.8 Other specified hypothyroidism; R79.89 Other specified abnormal findings of blood chemistry; E55.9 Vitamin D deficiency, unspecified
CPT/HCPCS: 36415; 80053; 80061; 82306; 82728; 83550; 84439; 84443; 84466; 85025

== ENCOUNTER 2022-05-02 07:26 | Day surgery (SDC) | payer MEDICARE, OTHER, SELFPAY ==
[2022-05-02] VITALS (7 sets, daily range): BP systolic 114–143; BP diastolic 62–88; PULSE 68–85; RESP 15–17; TEMP 36.3–36.7; O2SAT 97–100; BMI 29.1
[2022-05-02] MEDS: Lactated Ringers 1,000 ML 15 ML IV (07:45)
--- NOTE | 2022-05-02 08:22 | HP.PCM_ITS ---
History and Physical Date of Admission: 05/02/22 RACHEL CLOUD, is a 71 F who presents to the office today for further evaluation of dysphagia, elevated LFTs and for screening colonoscopy.RACHEL CLOUD, is a 71 F who presents to the office today for Initial consult. Rachel established with this clinic 12.19.21 with referral from PCP for chronically elevated LFT. 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 Calloway; then established with [facility] for [facility] who did not feel she needed to pursue arthritic treatment. Then established with Dr. Manuel who did not have more to recommend. FH brother also has elevated LFT with questionable elevated LFT; sister has bladder cancer and then had elevated LFT. No additional liver/fatty liver disease. She is having dysphagia with solids greater than liquids. US RUQ 2.1.18 liver measures 12.1cm with normal echogenicity US RUQ 6.7.21 liver measures 14cm with normal echogenicity Biochemical workup CBC (hgb H15.3), CMP, iron, TIBC, iron sat, transferrin, ferritin, total bilirubin, Vit D25, Free T 41.18 AST H86/ALT H125/Alk phos H179 without additional pertinent abnormality. ROS Const Constitutional: No anorexia, fatigue, fever(s), weight change or sleep problems Eyes Eyes: No change in vision ENT ENT: No abnormal hearing, difficulty swallowing, mouth lesions, tongue swelling or throat swelling Resp Respiratory: No cough or shortness of breath Cardio Cardiology: No chest pain at rest, chest pain with exertion, shortness of breath or dyspnea on exertion Gastro GI: No difficulty swallowing Genitourinary-Female: No difficulty urinating or burning urination Musc Musculoskeletal: No joint pain, joint swelling, muscle weakness or decreased muscle mass Skin Skin: No hair loss in leg, yellowing of the eye, itchy eyes, rash, skin ulcer or skin swelling Neuro Neurology: No abnormal hearing, abnormal movements, confusion, unsteady gait/balance or memory loss Psych Psychiatric: No anxiety, No confusion and No memory loss Endo Endocrine: No fatigue or weight change Aller/Imm Allergy/Immunologic: No itchy eyes, throat swelling or tongue swelling Rick/Lymp Hematologic/Lymphatic: No easy bleeding, easy bruising or enlarged lymph nodes Exam Const General: cooperative and comfortable Nutritional Appearance: average body habitus and well nourished [facility] Head: normal to inspection Ears: hearing grossly normal bilaterally Nose: external nose normal Face and sinus: normal facial exam Mouth: oral mucosae normal Throat: posterior oropharynx normal Eyes General: appearance normal, both eyes and all related structures Neck Neck: normal visual inspection Chest Chest palpation & inspection: normal inspection of the chest and normal palpation of entire chest wall Resp Effort & Inspection: normal respiratory effort Auscultation: Bilateral: Clear to Auscultation Cardio Palpation: normal PMI Rate: regular rate Rhythm: regular rhythm GI Inspection: normal to inspection Auscultation: normal bowel sounds Percussion: normal to percussion Palpation: no hepatosplenomegaly Skin General: no rashes or lesions noted Neuro General: patient alert Extrem General: normal to inspection Psych Affect: normal affect Quality Reporting Tobacco Screening ([facility] 138) Smoking Status: Never smoker Assessment and Plan Assessment and Plan (1) STRATTON (nonalcoholic steatohepatitis): ?Status:?Acute ?Plan: She is more lean STRATTON than metabolic Stratton.? Even though her BMI is 33 and ranges from 30-33 she does not have any other comorbidities including diabetes, morbid obesity, hypercholesterolemia, hypertension.? The recommendation for her is to check a uric acid level and if her uric acid is above 6 to treat it.? Recommendations are for ursodiol 250 mg p.o. 3 times daily and vitamin e- 400 international units a day and titrate up to 800?units. (2) Dysphagia: ?Status:?Chronic ?Plan: The differential diagnosis for esophageal dysphagia would include eosinophilic esophagitis, esophageal ring, esophageal web, hiatal hernia, erosive esophagitis.? She will undergo an upper endoscopy evaluate upper GI tract.? She will also undergo food allergy testing because her son also has a history of esophageal dysphagia requiring food disimpaction. (3) Screening for colon cancer: ?Status:?Acute ?Plan: She will undergo a screening colonoscopy.? To evaluate her lower GI tract.? At this time she does not have any problems with constipation, diarrhea, lower GI bleeding.? She does get occasional bloating but she think that is more associated with diet. (4) Obesity: ?Status:?Acute ?Plan: She would like some assistance in losing weight.? We had discussed the medical options including amphetamines, fiber supplements, commercial regimen such as Golo and Plenty.? I think she is going to do Golo because not only do you get pills to make you feel full it also teaches behavioral activity and regarding eating habits. I have examined the patient and the H&P has been reviewed. There are no clinical changes since date of exam.
--- NOTE | 2022-05-02 08:45 | EGD_PTH ---
PATIENT: REID CLOUD [place]: [facility] [place] U[place][id number] AGE/SX: 71/F ROOM: RE05/02/[address]: Dr. Estuardo Anand DO : 1950 BED: DIS: 05/02/2022 SPEC #: [id number] RECD: 05/02/22 10:28 STATUS: JUAN REPasha #: [id number] JARED: 05/02/22 08:[address]: Estuardo Anand DEPT: SURGICAL PATHOLOGY RECD BY: Sherrill Armenta ENTERED: 05/02/22 12:23 SP TYPE: EGD BIOPSY OT DR: MD Tyron Liz MD Tissues: A - Duodenum, NOS B - Esophagus, NOS Procedures: Special Stain Group II Surgery Specimen Level IV Alcian Blue/PAS (control) HEADER OPERATION: Colonoscopy, EGD (MAC), biopsy, dilation PRE-OP DIAGNOSIS: ROLDAN, dysphagia, screening TISSUE SUBMITTED: A ? Duodenum biopsy, B ? Distal esophagus biopsy MICROSCOPIC DIAGNOSIS A. Duodenum, biopsy: Fragments of duodenal mucosa, no pathologic diagnosis. B. Distal esophagus, biopsy: Fragments of gastroesophageal mucosa with chronic inflammation. Intestinal metaplasia (goblet cell metaplasia) not identified. See comment. LIDIA:alvaro 05/03/2022 COMMENT B. Alcian blue/PAS stain with matched control is used in the evaluation of the specimen. MICROSCOPIC DESCRIPTION Slides are reviewed. GROSS DESCRIPTION A - Received in fixative is one container labeled with the patient's name and designated duodenum biopsy. The specimen consists of two irregular fragments of light olmedo soft tissue that in aggregate measure 0.5 x 0.5 x 0.1 cm. The specimen is totally submitted in one cassette. B - Received in fixative is one container labeled with the patient's name and designated distal esophagus biopsy. The specimen consists of multiple irregular fragments of light olmedo soft tissue that in aggregate measure 1 x 0.8 x 0.1 cm. The specimen is totally submitted in one cassette. / AM:alvaro 05/02/2022 TC:3 CPT: 38576 x2, 82815
--- NOTE | 2022-05-02 09:07 | OP.EGD_ITS ---
Patient Name: Rachel May Procedure Date: 05/02/2022 8:24 AM Date of : 1950 Age: 71 Procedure: Upper GI endoscopy Indications: Dysphagia Providers: Estuardo Anand DO Medicines: Monitored Anesthesia Care Patient Profile: This is a 71 year old female. Refer to note in patient chart for documentation of history and physical. Patient has symptoms of dysphagia with solids. Complications: No immediate complications. Procedure: Pre-Anesthesia Assessment: - Prior to the procedure, a History and Physical was performed, and patient medications and allergies were reviewed. The risks and benefits of the procedure and the sedation options and risks were discussed with the patient. All questions were answered and informed consent was obtained. Patient identification and proposed procedure were verified by the physician in the pre-procedure area. Mental Status Examination: alert and oriented. Airway Examination: normal oropharyngeal airway and neck mobility. Respiratory Examination: clear to auscultation. CV Examination: normal. Prophylactic Antibiotics: The patient does not require prophylactic antibiotics. Prior Anticoagulants: The patient has taken no previous anticoagulant or antiplatelet agents. ASA Grade Assessment: II - A patient with mild systemic disease. After reviewing the risks and benefits, the patient was deemed in satisfactory condition to undergo the procedure. The anesthesia plan was to use moderate sedation / analgesia (conscious sedation). Immediately prior to administration of medications, the patient was re-assessed for adequacy to receive sedatives. The heart rate, respiratory rate, oxygen saturations, blood pressure, adequacy of pulmonary ventilation, and response to care were monitored throughout the procedure. The physical status of the patient was re-assessed after the procedure. After obtaining informed consent, the endoscope was passed under direct vision. Throughout the procedure, the patient's blood pressure, pulse, and oxygen saturations were monitored continuously. The Colonoscope was introduced through the mouth, and advanced to the second part of duodenum. The upper GI endoscopy was accomplished without difficulty. The patient tolerated the procedure well. Scope In: 8:34:20 AM Scope Out: 8:41:36 AM Total Procedure Duration Time 0 hours 7 minutes 16 seconds Findings: LA Grade A (one or more mucosal breaks less than 5 mm, not extending between tops of 2 mucosal folds) esophagitis with no bleeding was found 36 to 37 cm from the incisors. Biopsies were taken with a cold forceps for histology. Verification of patient identification for the specimen was done. Estimated blood loss was minimal. A moderate Schatzki ring was found in the lower third of the esophagus. A guidewire was placed and the scope was withdrawn. Dilation was performed with a Savary dilator with no resistance at 60 Fr. The dilation site was examined and showed complete resolution of luminal narrowing. Estimated blood loss was minimal. A medium-sized hiatal hernia was present. No other significant abnormalities were identified in a careful examination of the stomach. No gross lesions were noted in the second portion of the duodenum. Biopsies were taken with a cold forceps for histology. Verification of patient identification for the specimen was done. Estimated blood loss was minimal. Impression: - LA Grade A reflux esophagitis. Biopsied. - Moderate Schatzki ring. Dilated. - Medium-sized hiatal hernia. - No gross lesions in the second portion of the duodenum. Biopsied. Recommendation: - Discharge patient to home. - Resume previous diet. - Continue present medications. - Await pathology results. Procedure Code(s): --- Professional --- 36186, Esophagogastroduodenoscopy, flexible, transoral; with insertion of guide wire followed by passage of dilator(s) through esophagus over guide wire 11794, 59,51, Esophagogastroduodenoscopy, flexible, transoral; with biopsy, single or multiple CPT copyright 2017 [employer]. All rights reserved. The codes documented in this report are preliminary and upon silver designer review may be revised to meet current compliance requirements. Estuardo Anand DO 05/02/2022 9:06:36 AM This report has been signed electronically. Number of Addenda: 0 Note Initiated On: 05/02/2022 8:24 AM
--- NOTE | 2022-05-02 09:08 | OP.CCLET_ITS ---
05/02/2022 Tyron Knight [address] [place] [address] Re : Upper GI endoscopy procedure for Rachel May Dear Dr. Knight This procedure was performed on April. My impressions and recommendations are as follows: Impressions : - LA Grade A reflux esophagitis. Biopsied. - Moderate Schatzki ring. Dilated. - Medium-sized hiatal hernia. - No gross lesions in the second portion of the duodenum. Biopsied. Recommendations : - Discharge patient to home. - Resume previous diet. - Continue present medications. - Await pathology results. My findings are described in the full procedure note, which is enclosed. If I can be of further assistance, please feel free to contact me at . Sincerely, Estuardo Aannd, 05/02/2022 9:06:36 AM This report has been signed electronically.
--- NOTE | 2022-05-02 09:12 | OP.COLON_ITS ---
Patient Name: Rachel May Procedure Date: 05/02/2022 8:41 AM Date of : 1950 Age: 71 Procedure: Colonoscopy Indications: Screening for colorectal malignant neoplasm, Family history of colon cancer in a first-degree relative Providers: Estuardo Anand DO Medicines: Monitored Anesthesia Care Patient Profile: This is a 71 year old female. Refer to note in patient chart for documentation of history and physical. Patient has symptoms of dysphagia with solids. Last Colonoscopy: 5 years ago. Complications: No immediate complications. Procedure: Pre-Anesthesia Assessment: - Prior to the procedure, a History and Physical was performed, and patient medications and allergies were reviewed. The risks and benefits of the procedure and the sedation options and risks were discussed with the patient. All questions were answered and informed consent was obtained. Patient identification and proposed procedure were verified by the physician in the pre-procedure area. Mental Status Examination: alert and oriented. Airway Examination: normal oropharyngeal airway and neck mobility. Respiratory Examination: clear to auscultation. CV Examination: normal. Prophylactic Antibiotics: The patient does not require prophylactic antibiotics. Prior Anticoagulants: The patient has taken no previous anticoagulant or antiplatelet agents. ASA Grade Assessment: II - A patient with mild systemic disease. After reviewing the risks and benefits, the patient was deemed in satisfactory condition to undergo the procedure. The anesthesia plan was to use moderate sedation / analgesia (conscious sedation). Immediately prior to administration of medications, the patient was re-assessed for adequacy to receive sedatives. The heart rate, respiratory rate, oxygen saturations, blood pressure, adequacy of pulmonary ventilation, and response to care were monitored throughout the procedure. The physical status of the patient was re-assessed after the procedure. After I obtained informed consent, the scope was passed under direct vision. Throughout the procedure, the patient's blood pressure, pulse, and oxygen saturations were monitored continuously. The adult colonoscope was introduced through the anus and advanced to the terminal ileum. The colonoscopy was performed without difficulty. The patient tolerated the procedure well. The quality of the bowel preparation was good. Scope In: 8:44:24 AM Scope Withdrawal Time 0 hours 7 minutes 57 seconds Scope Out: 8:59:19 AM Total Procedure Duration Time 0 hours 14 minutes 55 seconds Findings: The perianal and digital rectal examinations were normal. The exam was otherwise normal throughout the examined colon. The terminal ileum appeared normal. Impression: - The examined portion of the ileum was normal. - No specimens collected. Recommendation: - Discharge patient to home. - Resume previous diet. - Continue present medications. - Repeat colonoscopy in 5 years for surveillance. Procedure Code(s): --- Professional --- 79455, Colonoscopy, flexible; diagnostic, including collection of specimen(s) by brushing or washing, when performed (separate procedure) CPT copyright 2017 [employer] [place] [employer]. All rights reserved. The codes documented in this report are preliminary and upon gravel weigher review may be revised to meet current compliance requirements. Estuardo Anand DO 05/02/2022 9:12:12 AM This report has been signed electronically. Number of Addenda: 0 Note Initiated On: 05/02/2022 8:41 AM
--- NOTE | 2022-05-02 09:13 | OP.CCLET_ITS ---
05/02/2022 Tyron Knight [address] [place] [address] Re : Colonoscopy procedure for Rachel May Dear Dr. Knight This procedure was performed on April. My impressions and recommendations are as follows: Impressions : - The examined portion of the ileum was normal. - No specimens collected. Recommendations : - Discharge patient to home. - Resume previous diet. - Continue present medications. - Repeat colonoscopy in 5 years for surveillance. My findings are described in the full procedure note, which is enclosed. If I can be of further assistance, please feel free to contact me at . Sincerely, Estuardo Anand, DO 05/02/2022 9:12:12 AM This report has been signed electronically.
== END 2022-05-02 09:56 | disposition home or self-care (01) ==
LOC: SDC 07:28 → AC 07:29
PROVIDERS: PCP Family Medicine; Referring Provider Family Medicine; Visit Provider Internal Medicine Gastroenterology
PROC: 0DJD8ZZ Inspection of Lower Intestinal Tract, Via Natural or Artificial Opening Endoscopic (ICD-10-PCS; CPT 45378; principal; 2022-05-02 08:40)
DX: Z12.11 Encounter for screening for malignant neoplasm of colon (principal); K22.2 Esophageal obstruction; K44.9 Diaphragmatic hernia without obstruction or gangrene; K75.81 Nonalcoholic steatohepatitis (NASH); R13.10 Dysphagia, unspecified; E66.9 Obesity, unspecified; Z80.0 Family history of malignant neoplasm of digestive organs; K21.00 Gastro-esophageal reflux disease with esophagitis, without bleeding; Z68.33 Body mass index [BMI] 33.0-33.9, adult
CPT/HCPCS: G0121; 43248; 43239; 88305; 88313; J7120; C1769; J2405

== ENCOUNTER → 2022-05-10 | Outpatient (CLI) | payer MEDICARE, OTHER, SELFPAY ==
[2022-05-10 10:11] LABS: Absolute Lymphocyte Count 1.24 X10^3/uL (0.83-4.51); Absolute Neutrophil Count 3.1 X10^3/uL (2.0-7.7); Basophil# 0.05 X10^3/uL; Eosinophil# 0.12 X10^3/uL; Eosinophils% 2.3 % (0-5); Hematocrit 49.2 % (37-47); Hemoglobin 16.2 g/dL (12.0-15.0); Lymphocyte # 1.24 X10^3/ul (0.83-4.51); Lymphocyte % 23.6 % (19-41); Mean Corp Hgb Conc 32.9 g/dL (32-36); Mean Corpuscular Hgb 29.9 pg (27.0-32.0); Mean Corpuscular Volume 90.9 fL (81-99); Mean Platelet Vol. 10.1 fl (6.2-12.0); Monocyte# 0.77 X10^3/uL; Monocyte% 14.6 % (0-10); NRBC Flagged by Analyzer 0 % (0-5); Neutrophil # 3.06 X10^3/uL (2.7-7.7); Neutrophil % 58.1 % (47-70); Platelet Count 316 K/mm3 (150-450); RBC Distribution Width CV 12.7 % (11.6-14.6); Red Blood Count 5.41 M/mm3 (4.2-5.4); White Blood Count 5.3 K/mm3 (4.4-11.0)
[2022-05-10 10:41] LABS: Vitamin D,25 Hydroxy 37.6 ng/mL
[2022-05-10 10:54] LABS: AST(SGOT) 22 U/L (15-37); Alanine Aminotransfer ALT/SGPT 40 U/L (13-56); Albumin, Serum 3.6 g/dL (3.2-5.0); Alkaline Phosphatase 161 U/L (45-117); Anion Gap 9 (5-15); BUN 14 mg/dL (7-18); BUN/Creat Ratio 14.7 RATIO (10-20); Calcium,Total 9.3 mg/dL (8.5-10.1); Chloride 103 mmol/L (98-107); Creatinine, Serum 0.95 mg/dL (0.55-1.02); EST Glomerular Filtration Rate 62 mL/min (>60); Est Glom Filt Rate - Afr Amer 75 mL/min (>60); Globulin 3.7 g/dL (2.2-4.2); Glucose 90 mg/dL (74-106); Protein, Total 7.3 g/dL (6.4-8.2); Sodium Level 141 mmol/L (136-145); T4 Free Direct 1.05 ng/dL (0.76-1.46); Thyroid Stim Hormone (TSH) 1.47 uIU/mL (0.358-3.74)
== END | disposition home or self-care (01) ==
LOC: MFPLAB 08:29
PROVIDERS: PCP Family Medicine; Referring Provider Family Medicine; Visit Provider Family Medicine
DX: E03.8 Other specified hypothyroidism (principal); R79.89 Other specified abnormal findings of blood chemistry; E55.9 Vitamin D deficiency, unspecified
CPT/HCPCS: 36415; 80053; 82306; 84439; 84443; 85025

== ENCOUNTER → 2022-11-07 | Outpatient (CLI) | payer MEDICARE, OTHER, SELFPAY ==
[2022-11-07 10:21] LABS: Absolute Lymphocyte Count 1.47 X10^3/uL (0.83-4.51); Absolute Neutrophil Count 2.9 X10^3/uL (2.0-7.7); Basophil# 0.07 X10^3/uL; Basophil% 1.3 % (0-1); Eosinophil# 0.23 X10^3/uL; Eosinophils% 4.3 % (0-5); Hematocrit 46.5 % (37-47); Hemoglobin 15.2 g/dL (12.0-15.0); Lymphocyte # 1.47 X10^3/ul (0.83-4.51); Lymphocyte % 27.8 % (19-41); Mean Corp Hgb Conc 32.7 g/dL (32-36); Mean Corpuscular Hgb 29.9 pg (27.0-32.0); Mean Corpuscular Volume 91.5 fL (81-99); Mean Platelet Vol. 10.4 fl (6.2-12.0); Monocyte# 0.57 X10^3/uL; Monocyte% 10.8 % (0-10); NRBC Flagged by Analyzer 0 % (0-5); Neutrophil # 2.94 X10^3/uL (2.7-7.7); Neutrophil % 55.6 % (47-70); Platelet Count 260 K/mm3 (150-450); RBC Distribution Width CV 12.5 % (11.6-14.6); RBC Distribution Width SD 41.8 fl (35.1-43.9); Red Blood Count 5.08 M/mm3 (4.2-5.4); White Blood Count 5.3 K/mm3 (4.4-11.0)
[2022-11-07 10:41] LABS: Vitamin D,25 Hydroxy 51.1 ng/mL
[2022-11-07 10:55] LABS: ALB/GLOB Ratio 0.9 RATIO (0.9-2.4); AST(SGOT) 23 U/L (15-37); Alanine Aminotransfer ALT/SGPT 29 U/L (13-56); Albumin, Serum 3.4 g/dL (3.2-5.0); Alkaline Phosphatase 115 U/L (45-117); Anion Gap 5 (5-15); BUN 14 mg/dL (7-18); BUN/Creat Ratio 17.2 RATIO (10-20); Calcium,Total 8.7 mg/dL (8.5-10.1); Chloride 106 mmol/L (98-107); Cholesterol 165 mg/dL (200); Creatinine, Serum 0.81 mg/dL (0.55-1.02); EST Glomerular Filtration Rate 74 mL/min (>60); Est Glom Filt Rate - Afr Amer 89 mL/min (>60); Globulin 3.8 g/dL (2.2-4.2); Glucose 92 mg/dL (74-106); High Density Lipoprotein 53 mg/dL; Potassium 3.8 mmol/L (3.5-5.1); Protein, Total 7.2 g/dL (6.4-8.2); Sodium Level 140 mmol/L (136-145); T4 Free Direct 1.31 ng/dL (0.76-1.46); Thyroid Stim Hormone (TSH) 0.32 uIU/mL (0.358-3.74); Triglycerides 85 mg/dL; Very Low Density Lipoprotein 17 mg/dL (5-40)
== END | disposition home or self-care (01) ==
LOC: MFPLAB 09:24
PROVIDERS: PCP Family Medicine; Visit Provider Family Medicine
DX: E03.8 Other specified hypothyroidism (principal); E55.9 Vitamin D deficiency, unspecified
CPT/HCPCS: 36415; 80053; 80061; 82306; 84439; 84443; 85025

== ENCOUNTER → 2022-11-12 | Outpatient (CLI) | payer MEDICARE, OTHER, SELFPAY ==
--- NOTE | 2022-11-12 09:43 | US_ITS ---
STUDY: ABDOMINAL ULTRASOUND - ELASTOGRAPHY REASON FOR VISIT: Female, 72 years old. ROLDAN, increased liver enzymes nonalcoholic steatohepatitis TECHNIQUE: Liver stiffness measurements were obtained on a [employer] RS 85 ultrasound machine using a CA 1-7 probe following the SRU guidelines. 3 measurements were obtained using a 2-D-SWE method. TheIQR/M was 14 % suggesting a quality data set. TECHNICAL QUALITY: Adequate. COMPARISON: Comparison is made with prior study December 26, 2021. FINDINGS: Liver: Fatty infiltration of the liver. Median liver stiffness measured 14 kPa. Abdomen: There is no demonstrated mass lesion. US/ABD Limited w/ Elastography IMPRESSION: Liver stiffness measures 14 kPa compatible with F3-F4 (Moderate to severe liver fibrosis) Metavir score. Reference Society of radiologists in ultrasound liver elastography consensus statement, October 05, 2019: The use of shear-wave elastography (SWE) for the noninvasive assessment of liver fibrosis has grown rapidly, and substantial new information regarding disease-specific liver stiffness is available since the publication of the consensus statement of the SRU in December 2014 (1,2). Electronically Signed: Bandar Ponce MD at 12:22 EDT ,
== END | disposition home or self-care (01) ==
LOC: US 09:39
PROVIDERS: PCP Family Medicine; Referring Provider Internal Medicine Gastroenterology; Visit Provider Internal Medicine Gastroenterology
DX: K75.81 Nonalcoholic steatohepatitis (NASH) (principal)
CPT/HCPCS: 76705; 76981

== ENCOUNTER → 2022-11-21 | Outpatient (CLI) | payer MEDICARE, OTHER, SELFPAY ==
--- NOTE | 2022-11-21 12:09 | BI_ITS ---
MAMMOGRAPHY - BILATERAL SCREENING REASON FOR EXAM: Female, 72 years old. Routine annual screening examination. PERTINENT HISTORY: Aunt with breast cancer. TECHNIQUE: Digital bilateral breast carmina (3D mammographic acquisition) in the CC and MLO projections. 2-D mediolateral oblique (MLO) and craniocaudad (CC) views of both breasts were obtained. CAD: Full Field Digital Mammography with Computer Added Detection was performed. COMPARISON: Comparison is made with prior study dated November 09, 2020 and July 20, 2018. FINDINGS: Breast Composition: The breasts are extremely dense, which lowers the sensitivity of mammography. Questionable 2.7 cm x 3.1 cm well-defined nodule in the upper lateral aspect of the right breast. Correlation with ultrasound is recommended. Stable benign-appearing bilateral axillary lymph nodes. No other significant abnormalities are identified. BI/SCRN MAMM (CAD)W/CARMINA BILAT IMPRESSION: Questionable well-defined nodule in the upper lateral aspect of the right breast. Correlation with ultrasound is recommended. ASSESSMENT CATEGORY: BIRADS Category 0: Incomplete. Need additional imaging evaluation. A letter regarding these results will be sent to the patient by the facility within 30 days. Approximately 10% of breast cancers are not detected by mammography. A normal mammogram should not delay biopsy of a clinically suspicious abnormality. [id number] Electronically Signed: Bandar Ponce MD at 13:26 EDT ,
--- NOTE | 2022-11-21 12:14 | BD_ITS ---
STUDY: DUAL ENERGY X-RAY ABSORPTIOMETRY / DXA REASON FOR EXAM: Female, 72 years old. M85.89 TECHNIQUE: Bone Mineral Density (BMD) measurements of lumbar spine and bilateral hips were obtained. COMPARISON: Comparison is made with prior study August 29, 2020. FINDINGS: Lumbar Spine (L1-L4): g/cm2 (0.732) / T-score (-2.6) / Z-score (-0.5) Findings are suggestive of osteoporosis with a high fracture risk. Left Femur Total: g/cm2 (0.879) / T-score (-0.5) / Z-score (1.0) Left Femoral Neck: g/cm2 (0.783) / T-score (-0.6) / Z-score (1.2) Right Femur Total: g/cm2 (0.832) / T-score (-0.9) / Z-score (0.6) Right Femoral Neck: g/cm2 (0.773) / T-score (-0.7) / Z-score (1.1) The T-Scores on the most recent prior examination were: Lumbar Spine (L1-L4): There has been worsening of bone density since the previous examination. Left Femur Total: which represents an improvement of 2.1%. Right Femur Total: which represents an improvement of 1.9%. BD/Dexa Bone Density Study IMPRESSION: The patient is considered osteoporotic as outlined below according to World Alex Organization (WHO) criteria with a high fracture risk. There has been improvement of bone density since the previous examination. Reference Information: The T-score is the number of standard deviations above or below the standard which is normal for young adults at their peak bone mineral density. The World Health Organization (WHO) interprets the T-scores as follows: Above -1 Normal bone density Between -1 and -2.5 Osteopenia Equal to / or below -2.5 Osteoporosis As a practical clinical guideline, osteopenia may be graded as follows: Mild -1 through -1.5 Moderate -1.6 through -2.0 Severe -2.1 through -2.4 The Z-score is the number of standard deviations above or below age-matched controls. A Z-score of less than -1.5 would be considered abnormal. References: 1. NIH Osteoporosis and Related Bone Diseases www osteo.org 2. International Society for Clinical Densitometry www iscd.org 3. National Osteoporosis Foundation www nof.org Electronically Signed: Bandar Ponce MD at 11:00 EDT ,
== END | disposition home or self-care (01) ==
LOC: OPBD 12:06
PROVIDERS: PCP Family Medicine; Referring Provider Family Medicine; Visit Provider Family Medicine
DX: Z12.31 Encounter for screening mammogram for malignant neoplasm of breast (principal); M85.89 Other specified disorders of bone density and structure, multiple sites
CPT/HCPCS: 77063; 77067; 77080

== ENCOUNTER → 2022-11-26 | Outpatient (CLI) | payer MEDICARE, OTHER, SELFPAY ==
--- NOTE | 2022-11-26 14:17 | US_ITS ---
STUDY: ULTRASOUND BREAST - RIGHT REASON FOR EXAM: Female, 72 years old. Abnormal screening mammogram. TECHNIQUE: Axial and longitudinal images of the RIGHT breast were performed with a high resolution ultrasound transducer. # OF IMAGES: 36 COMPARISON: Comparison is made with prior mammogram dated November 21, 2022. FINDINGS: RIGHT Breast: The upper half of the right breast was examined with ultrasound. There is evidence of dense fibroglandular tissue. No sonographic abnormality is seen. Additional mammographic views will be obtained. US/Breast Limited Unilateral IMPRESSION: No sonographic abnormality is seen. Additional mammographic views will be obtained. ASSESSMENT CATEGORY: BIRADS Category 0: Incomplete. Need additional imaging evaluation. A letter regarding these results will be sent to the patient by the facility within 30 days. Electronically Signed: Bandar Ponce MD at 15:44 EDT ,
--- NOTE | 2022-11-26 15:01 | BI_ITS ---
MAMMOGRAPHY - UNILATERAL DIAGNOSTIC: RIGHT BREAST REASON FOR EXAM: Female, 72 years old. Abnormal screening mammogram. PERTINENT HISTORY: Aunt with breast cancer. TECHNIQUE: Compression spot views of the right breast were obtained. CAD: Full Field Digital Mammography with Computer Added Detection was performed. COMPARISON: Comparison is made with prior study November 21, 2022 and November 09, 2020. FINDINGS: Breast Composition: The breasts are extremely dense, which lowers the sensitivity of mammography. The compression views does not demonstrate a distinct mass rather than a focal dense area of breast tissue. No other significant abnormalities are identified. BI/DIAG MAMM W/CAD, UNILAT IMPRESSION: Stable unilateral diagnostic mammogram. One year follow-up mammogram recommended. (A) ASSESSMENT CATEGORY: BIRADS Category 2: Benign. A letter regarding these results will be sent to the patient by the facility within 30 days. Approximately 10% of breast cancers are not detected by mammography. A normal mammogram should not delay biopsy of a clinically suspicious abnormality. Electronically Signed: Bandar Ponce MD at 15:43 EDT ,
== END | disposition home or self-care (01) ==
PROVIDERS: PCP Family Medicine; Referring Provider Family Medicine; Visit Provider Family Medicine
DX: R92.8 Other abnormal and inconclusive findings on diagnostic imaging of breast (principal)
CPT/HCPCS: 76642; 77065

== ENCOUNTER → 2022-12-02 | Outpatient (CLI) | payer MEDICARE, OTHER, SELFPAY ==
--- NOTE | 2022-12-02 09:46 | US_ITS ---
STUDY: ABDOMINAL ULTRASOUND - RIGHT UPPER QUADRANT; ELASTOGRAPHY REASON FOR VISIT: Female, 72 years old. ROLDAN TECHNIQUE: Ultrasound evaluation of the right upper quadrant was performed with real-time and static le-scale imaging. Point quantification shear wave elastography was performed ([employer]). TECHNICAL QUALITY: Adequate. COMPARISON: Comparison is made with prior examination of November 12, 2022. FINDINGS: Liver: The liver measures 12.9 cm. There is normal echogenicity of the liver. The bile ducts are within normal limits. There is hepatic color flow. The direction of portal flow is hepatopetal. There is no demonstrated mass lesion. Median liver stiffness measured 9 kPa. Gallbladder: Normal distended gallbladder. The gallbladder wall measures 1.9 mm. There is a negative sonographic Schilling''s sign. There is no pericholecystic fluid. There are no gallstones. Common Bile Duct (C.B.D.): The common bile duct measures 5.1 mm. Pancreas: There is normal echogenicity of the visualized pancreas. There is no demonstrated pancreatic mass or cyst. Right Kidney: Normal size of the right kidney. The right kidney measures 9.5 cm x 4.9 cm x 3.5 cm. Normal renal cortex. The right cortex measures 1.1 cm. There is no demonstrated renal mass or cyst. There is no right hydronephrosis. US/ABD Limited w/ Elastography IMPRESSION: 1. Liver stiffness measures 9 kPa compatible with F2-F3 (Mild to moderate liver fibrosis) Metavir score. Electronically Signed: Bandar Ponce MD at 12:29 EDT ,
== END | disposition home or self-care (01) ==
LOC: US 09:45
PROVIDERS: PCP Family Medicine; Referring Provider Internal Medicine Gastroenterology; Visit Provider Internal Medicine Gastroenterology
DX: K75.81 Nonalcoholic steatohepatitis (NASH) (principal)
CPT/HCPCS: 76705; 76981

== ENCOUNTER 2023-04-03 10:12 | Outpatient (RCR) | payer SELFPAY | END 2023-04-27 23:59 | LOC: NS 10:12 | PROVIDERS: PCP Family Medicine; Referring Provider Internal Medicine; Visit Provider Internal Medicine | DX: Z71.3 Dietary counseling and surveillance (principal); K75.81 Nonalcoholic steatohepatitis (NASH) | CPT/HCPCS: 97802 ==

== ENCOUNTER → 2023-05-01 | Outpatient (CLI) | payer MEDICARE, OTHER, SELFPAY ==
--- OUTSIDE RECORDS SUMMARY | 2023-05-01 08:46 | XMS RPT_ITS | CCD ---
Author Name Unknown Address [address] [place] [address] Organization [facility] Care Team Providers Care Assistant Bookkeeper Name Role Phone AGUSTÍN RILEYA (HRIS MANAGER) Unavailable Unavailable WAYNE LAMBOLAS Unavailable Unavailable WAYNE LAMBOLAS Unavailable Unavailable THORFIDEL TY (HRIS MANAGER) Unavailable Unavailable THORPE, TY (HRIS MANAGER) Unavailable Unavailable WAYNE LAMBOLAS Unavailable Unavailable Allergies Allergy Classification Reported Allergen(s) Allergy Type Date of Onset Reaction(s) Facility (1 source) phenytoin; Translations: [PHENYTOIN SODIUM EXTENDED] Drug Allergy 06-30-2006 [facility] Repository (1 source) trimethoprim; Translations: [TRIMETHOPRIM] Drug Allergy 06-30-2006 [facility] Repository Problems Active Problems Problem Classification Problem Date Documented Da te Episodic/Chronic Unclassified (1 source) Unknown / UNK(Unknown) Onset: 04-25-2017 Past or Other Problems Problem Classification Problem Date Documented Da te Episodic/Chronic Unclassified (1 source) Encounter for screening for malignant neoplasm of colon; Translations: [Encounter for screening for malignant neoplasm of colon] Onset: 04-02-2017 Episodic Results Test Name Value Interpretation Reference Range Facil ity Encounters Encounter Date Encounter Type Care Provider Facility Start: 04-25-2017 End: 04-25-2017 Ambulatory TY (HRIS MANAGER) [facility] Start: 04-07-2017 End: 04-07-2017 Ambulatory SUSAN LAMB [facility] Start: 04-01-2017 End: 04-03-2017 Ambulatory TY (HRIS MANAGER) [facility] Summary Purpose Family History No Family History Records Found Advance Directives No Advanced Directives Records Found Additional Source Comments INFORMATION SOURCE (unrecogn ized section and content) FOR RECORDS PERTAINING TO PATIENTS WHO ARE OR HAVE BEEN ENROLLED IN A CHEMICAL DEPENDENCY/SUBSTANCEABUSE PROGRAM, SOME INFORMATION MAY BE OMITTED. This clinical summary was aggregated from multiple sources. Caution should be exercised in using it in the provision of clinical care. This summary normalizes information from multiple sources, and as a consequence, information in this document may materially change the coding, format and clinical context of patient data. In addition, data may be omitted in some cases. CLINICAL DECISIONS SHOULD BE BASED ON THE PRIMARY CLINICAL RECORDS. [facility]. provides no warranty or guarantee of the accuracy or completeness of information in this document.
[2023-05-01 10:29] LABS: Absolute Lymphocyte Count 1.16 X10^3/uL (0.83-4.51); Absolute Neutrophil Count 2.7 X10^3/uL (2.0-7.7); Basophil# 0.06 X10^3/uL; Basophil% 1.3 % (0-1); Eosinophil# 0.13 X10^3/uL; Eosinophils% 2.8 % (0-5); Hematocrit 47.5 % (37-47); Hemoglobin 15.5 g/dL (12.0-15.0); Lymphocyte # 1.16 X10^3/ul (0.83-4.51); Mean Corp Hgb Conc 32.6 g/dL (32-36); Mean Corpuscular Hgb 29.6 pg (27.0-32.0); Mean Corpuscular Volume 90.6 fL (81-99); Mean Platelet Vol. 10.4 fl (6.2-12.0); Monocyte# 0.58 X10^3/uL; Monocyte% 12.5 % (0-10); NRBC Flagged by Analyzer 0 % (0-5); Neutrophil % 58.2 % (47-70); Platelet Count 272 K/mm3 (150-450); RBC Distribution Width CV 12.8 % (11.6-14.6); RBC Distribution Width SD 42.4 fl (35.1-43.9); Red Blood Count 5.24 M/mm3 (4.2-5.4); White Blood Count 4.6 K/mm3 (4.4-11.0)
[2023-05-01 10:56] LABS: Vitamin D,25 Hydroxy 39.2 ng/mL
[2023-05-01 11:05] LABS: ALB/GLOB Ratio 0.9 RATIO (0.9-2.4); AST(SGOT) 62 U/L (15-37); Alanine Aminotransfer ALT/SGPT 88 U/L (13-56); Albumin, Serum 3.3 g/dL (3.2-5.0); Alkaline Phosphatase 126 U/L (45-117); Anion Gap 4 (5-15); BUN 16 mg/dL (7-18); BUN/Creat Ratio 19.6 RATIO (10-20); Calcium,Total 8.6 mg/dL (8.5-10.1); Chloride 108 mmol/L (98-107); Cholesterol 188 mg/dL (200); Creatinine, Serum 0.82 mg/dL (0.55-1.02); EST Glomerular Filtration Rate 74 mL/min (>60); Est Glom Filt Rate - Afr Amer 89 mL/min (>60); Globulin 3.8 g/dL (2.2-4.2); Glucose 101 mg/dL (74-106); High Density Lipoprotein 56 mg/dL; Potassium 4.1 mmol/L (3.5-5.1); Protein, Total 7.1 g/dL (6.4-8.2); Sodium Level 140 mmol/L (136-145); T4 Free Direct 0.94 ng/dL (0.76-1.46); Thyroid Stim Hormone (TSH) 1.12 uIU/mL (0.358-3.74); Triglycerides 102 mg/dL; Very Low Density Lipoprotein 20 mg/dL (5-40)
== END | disposition home or self-care (01) ==
LOC: MFPLAB 08:04
PROVIDERS: PCP Family Medicine; Visit Provider Family Medicine
DX: E55.9 Vitamin D deficiency, unspecified (principal); E03.8 Other specified hypothyroidism
CPT/HCPCS: 36415; 80053; 80061; 82306; 84439; 84443; 85025

== ENCOUNTER → 2023-11-03 | Outpatient (CLI) | payer MEDICARE, OTHER, SELFPAY ==
--- NOTE | 2023-11-03 09:36 | US_ITS ---
STUDY: ABDOMINAL ULTRASOUND - RIGHT UPPER QUADRANT; ELASTOGRAPHY REASON FOR VISIT: Female, 73 years old. NAFL D TECHNIQUE: Ultrasound evaluation of the right upper quadrant was performed with real-time and static le-scale imaging. Point quantification shear wave elastography was performed ([email or web address]). TECHNICAL QUALITY: Adequate. COMPARISON: Comparison is made with prior study dated December 02, 2022. FINDINGS: Liver: The liver measures 12.7 cm. There is increased echogenicity consistent with fatty infiltration. The bile ducts are within normal limits. There is hepatic color flow. The direction of portal flow is hepatopetal. There is no demonstrated mass lesion. Median liver stiffness measured 9.3 kPa. Gallbladder: Normal distended gallbladder. The gallbladder wall measures 1.8 mm. There is a negative sonographic Schilling''s sign. There is no pericholecystic fluid. There are no gallstones. Common Bile Duct (C.B.D.): The common bile duct measures 6.5 mm. Pancreas: There is normal echogenicity of the visualized pancreas. There is no demonstrated pancreatic mass or cyst. Right Kidney: Normal size of the right kidney. The right kidney measures 8.8 cm x 5 cm x 4.4 cm. Normal renal cortex. The right cortex measures 1.1 cm. There is no demonstrated renal mass or cyst. There is no right hydronephrosis. There is a nonobstructive 2 mm x 2 mm x 2 mm renal calculus. IMPRESSION: 1. Liver stiffness measures 9.3 kPa compatible with F2-F3 (Mild to moderate liver fibrosis) Metavir score. Electronically Signed: Bandar Ponce MD at 15:02 EDT , STUDY: ABDOMINAL ULTRASOUND - LEFT UPPER QUADRANT REASON FOR EXAM: Female, 73 years old. NAFLD, including spleen TECHNIQUE: Transabdominal ultrasound was performed with real-time and static le scale imaging. TECHNICAL QUALITY: Adequate. COMPARISON: None. FINDINGS: Spleen: Normal size of the spleen. The spleen measures 9.9 cm x 3.9 cm x 3.6 cm. US/ABD Limited w/ Elastography IMPRESSION: Normal left upper quadrant abdominal ultrasound examination. Electronically Signed: Bandar Ponce MD at 15:03 EDT ,
== END | disposition home or self-care (01) ==
LOC: US 09:35
PROVIDERS: PCP Family Medicine; Referring Provider Internal Medicine; Visit Provider Internal Medicine
DX: K75.81 Nonalcoholic steatohepatitis (NASH) (principal); K21.9 Gastro-esophageal reflux disease without esophagitis; E66.9 Obesity, unspecified
CPT/HCPCS: 76705; 76981

== ENCOUNTER → 2023-11-28 | Outpatient (CLI) | payer MEDICARE, OTHER, SELFPAY ==
--- NOTE | 2023-11-28 09:09 | BI_ITS ---
MAMMOGRAPHY - BILATERAL SCREENING REASON FOR EXAM: Female, 73 years old. Routine annual screening examination. PERTINENT HISTORY: Aunt with breast cancer. TECHNIQUE: Digital bilateral breast carmina (3D mammographic acquisition) in the CC and MLO projections. 2-D mediolateral oblique (MLO) and craniocaudad (CC) views of both breasts were obtained. CAD: Full Field Digital Mammography with Computer Added Detection was performed. COMPARISON: Comparison is made with prior study dated November 21, 2022 and November 26, 2022. FINDINGS: Breast Composition: The breasts are extremely dense, which lowers the sensitivity of mammography. There are no dominant masses or suspicious calcifications. No other significant abnormalities are identified. There has been no significant change since the prior study. BI/SCRN MAMM (CAD)W/CARMINA BILAT IMPRESSION: Stable bilateral screening mammogram. Yearly follow-up mammogram recommended. (A) ASSESSMENT CATEGORY: BIRADS Category 1: Negative. A letter regarding these results will be sent to the patient by the facility within 30 days. Approximately 10% of breast cancers are not detected by mammography. A normal mammogram should not delay biopsy of a clinically suspicious abnormality. [id number] Electronically Signed: Bandar Ponce MD at 10:11 EDT ,
== END | disposition home or self-care (01) ==
LOC: OPBI 09:03
PROVIDERS: PCP Family Medicine; Referring Provider Nurse Practitioner Women's Health; Visit Provider Nurse Practitioner Women's Health
DX: Z12.31 Encounter for screening mammogram for malignant neoplasm of breast (principal)
CPT/HCPCS: 77063; 77067

== ENCOUNTER → 2023-12-12 | Outpatient (CLI) | payer MEDICARE, OTHER, SELFPAY ==
[2023-12-12 08:57] LABS: Absolute Lymphocyte Count 1.21 X10^3/uL (0.83-4.51); Absolute Neutrophil Count 3.5 X10^3/uL (2.0-7.7); Basophil# 0.09 X10^3/uL; Basophil% 1.6 % (0-1); Eosinophil# 0.28 X10^3/uL; Eosinophils% 4.9 % (0-5); Hematocrit 46.8 % (37-47); Hemoglobin 15.6 g/dL (12.0-15.0); Lymphocyte # 1.21 X10^3/ul (0.83-4.51); Lymphocyte % 21.3 % (19-41); Mean Corp Hgb Conc 33.3 g/dL (32-36); Mean Corpuscular Hgb 29.9 pg (27.0-32.0); Mean Corpuscular Volume 89.7 fL (81-99); Mean Platelet Vol. 9.4 fl (6.2-12.0); Monocyte# 0.57 X10^3/uL; Monocyte% 10.1 % (0-10); NRBC Flagged by Analyzer 0 % (0-5); Neutrophil # 3.51 X10^3/uL (2.7-7.7); Neutrophil % 61.9 % (47-70); Platelet Count 273 K/mm3 (150-450); RBC Distribution Width CV 12.2 % (11.6-14.6); RBC Distribution Width SD 40.3 fl (35.1-43.9); Red Blood Count 5.22 M/mm3 (4.2-5.4); White Blood Count 5.7 K/mm3 (4.4-11.0)
[2023-12-12 09:01] LABS: International Normalized Ratio 1.1; Prothrombin Time (Protime)PT. 14.2 SECONDS (11.7-14.9)
[2023-12-12 09:09] LABS: Hemoglobin A1c 5.1 % (3.8-5.6)
[2023-12-12 09:25] LABS: T4 Free Direct 1.27 ng/dL (0.76-1.46); Thyroid Stim Hormone (TSH) 0.638 uIU/mL (0.358-3.740)
[2023-12-13 14:10] LABS: AFP, Tumor Marker 5.1 ng/mL (0.0-9.2); Anti-Smooth Muscle ABS 11 Units (0-19)
[2023-12-15 15:07] LABS: ANTINUCLEAR ANTIBODIES DIRECT Negative (Negative); Anti-Mitochondrial AB <20.0 Units (0.0-20.0)
== END | disposition home or self-care (01) ==
LOC: LAB 08:16
PROVIDERS: PCP Family Medicine; Referring Provider Internal Medicine; Visit Provider Internal Medicine
DX: R13.10 Dysphagia, unspecified (principal); R79.89 Other specified abnormal findings of blood chemistry; K75.81 Nonalcoholic steatohepatitis (NASH); K21.9 Gastro-esophageal reflux disease without esophagitis; E66.9 Obesity, unspecified
CPT/HCPCS: 36415; 82105; 83036; 83516; 84439; 84443; 85025; 85610; 86038; 86225; 86235

== ENCOUNTER → 2023-12-30 | Outpatient (CLI) | payer MEDICARE, OTHER, SELFPAY ==
[2023-12-30 18:30] LABS: Vitamin D,25 Hydroxy 38.3 ng/mL
[2023-12-30 18:42] LABS: ALB/GLOB Ratio 0.9 RATIO (0.9-2.4); AST(SGOT) 30 U/L (15-37); Alanine Aminotransfer ALT/SGPT 39 U/L (13-56); Albumin, Serum 3.5 g/dL (3.2-5.0); Alkaline Phosphatase 98 U/L (45-117); Anion Gap 6 (5-15); BUN 14 mg/dL (7-18); BUN/Creat Ratio 18.2 RATIO (10-20); Calcium,Total 9.4 mg/dL (8.5-10.1); Chloride 103 mmol/L (98-107); Creatinine, Serum 0.77 mg/dL (0.55-1.02); EST Glomerular Filtration Rate 78 mL/min (>60); Est Glom Filt Rate - Afr Amer 95 mL/min (>60); Ferritin 58 ng/mL (8-252); Globulin 3.7 g/dL (2.2-4.2); Glucose 122 mg/dL (74-106); Iron 63 ug/dL (50-170); Iron Binding Capacity,Total 317 ug/dL (250-450); Potassium 3.7 mmol/L (3.5-5.1); Protein, Total 7.2 g/dL (6.4-8.2); Sodium Level 137 mmol/L (136-145); T4 Free Direct 1.15 ng/dL (0.76-1.46); Thyroid Stim Hormone (TSH) 0.163 uIU/mL (0.358-3.740)
== END | disposition home or self-care (01) ==
LOC: MFPLAB 14:55
PROVIDERS: PCP Family Medicine; Visit Provider Family Medicine
DX: E03.8 Other specified hypothyroidism (principal); D75.1 Secondary polycythemia; E55.9 Vitamin D deficiency, unspecified
CPT/HCPCS: 36415; 80053; 82306; 82728; 83540; 83550; 84439; 84443

== ENCOUNTER → 2024-01-09 | Outpatient (CLI) | payer MEDICARE, OTHER, SELFPAY ==
--- NOTE | 2024-01-09 13:46 | US_ITS ---
INDICATION: nodule EXAMINATION: Ultrasound US Thyroid (eg thyroid, parathyroid, parotid) TECHNIQUE: Penaloza scale and color doppler imaging was performed of the thyroid gland. COMPARISON: October 19, 2021 FINDINGS: RIGHT THYROID LOBE: 4.0 x 1.0 x 1.1 cm. Heterogeneous echotexture with normal vascularity. [Slightly hypoechoic upper pole 5 x 5 x 2 mm nodule is noted, not appreciated on previous study. Previously noted right mid thyroid nodule is not appreciated on the current study. LEFT THYROID LOBE: 3.3 x 0.8 x 0.8 cm. Homogeneous echotexture with normal vascularity. [No thyroid nodules are present. ISTHMUS: 1 mm. No thyroid nodules are present. US/Thyroid IMPRESSION: Mild heterogeneity of the thyroid lobes. Right thyroid upper pole nodule. Electronically Signed: Chino Fry DO at 19:26 EDT ,
== END | disposition home or self-care (01) ==
LOC: US 13:45
PROVIDERS: PCP Family Medicine; Referring Provider Family Medicine; Visit Provider Family Medicine
DX: E04.1 Nontoxic single thyroid nodule (principal)
CPT/HCPCS: 76536

== ENCOUNTER → 2024-06-08 | Outpatient (CLI) | payer MEDICARE, OTHER, SELFPAY ==
[2024-06-08 06:56] LABS: Absolute Lymphocyte Count 1.53 X10^3/uL (0.83-4.51); Absolute Neutrophil Count 2.6 X10^3/uL (2.0-7.7); Basophil# 0.08 X10^3/uL; Basophil% 1.6 % (0-1); Eosinophil# 0.17 X10^3/uL; Eosinophils% 3.4 % (0-5); Hematocrit 45.2 % (37-47); Hemoglobin 15.6 g/dL (12.0-15.0); Lymphocyte # 1.53 X10^3/ul (0.83-4.51); Lymphocyte % 30.6 % (19-41); Mean Corp Hgb Conc 34.5 g/dL (32-36); Mean Corpuscular Hgb 30.2 pg (27.0-32.0); Mean Corpuscular Volume 87.6 fL (81-99); Mean Platelet Vol. 9.7 fl (6.2-12.0); Monocyte# 0.64 X10^3/uL; Monocyte% 12.8 % (0-10); NRBC Flagged by Analyzer 0 % (0-5); Neutrophil # 2.57 X10^3/uL (2.7-7.7); Neutrophil % 51.4 % (47-70); Platelet Count 275 K/mm3 (150-450); RBC Distribution Width CV 12.3 % (11.6-14.6); RBC Distribution Width SD 39.6 fl (35.1-43.9); Red Blood Count 5.16 M/mm3 (4.2-5.4)
[2024-06-08 07:46] LABS: ALB/GLOB Ratio 0.9 RATIO (0.9-2.4); AST(SGOT) 33 U/L (15-37); Alanine Aminotransfer ALT/SGPT 45 U/L (13-56); Albumin, Serum 3.5 g/dL (3.2-5.0); Alkaline Phosphatase 142 U/L (45-117); Anion Gap 5 (5-15); BUN 17 mg/dL (7-18); BUN/Creat Ratio 21.5 RATIO (10-20); Calcium,Total 9.2 mg/dL (8.5-10.1); Chloride 107 mmol/L (98-107); Creatinine, Serum 0.79 mg/dL (0.55-1.02); EST Glomerular Filtration Rate 76 mL/min (>60); Est Glom Filt Rate - Afr Amer 92 mL/min (>60); Glucose 102 mg/dL (74-106); Potassium 4.2 mmol/L (3.5-5.1); Protein, Total 7.5 g/dL (6.4-8.2); Sodium Level 138 mmol/L (136-145); T4 Free Direct 0.87 ng/dL (0.76-1.46); Thyroid Stim Hormone (TSH) 0.103 uIU/mL (0.358-3.740)
[2024-06-08 09:16] LABS: Vitamin D,25 Hydroxy 69.6 ng/mL
[2024-06-09 17:27] LABS: Ferritin 168 ng/mL (8-252); Iron 118 ug/dL (50-170); Iron Binding Capacity,Total 394 ug/dL (250-450)
[2024-06-09 17:32] LABS: Hemoglobin A1c 5.4 % (3.8-5.6)
== END | disposition home or self-care (01) ==
PROVIDERS: PCP Family Medicine; Referring Provider Family Medicine; Visit Provider Family Medicine
DX: D75.1 Secondary polycythemia (principal); E55.9 Vitamin D deficiency, unspecified; E03.8 Other specified hypothyroidism; R73.09 Other abnormal glucose
CPT/HCPCS: 36415; 80053; 82306; 82728; 83036; 83540; 83550; 84439; 84443; 85025

== ENCOUNTER → 2024-11-01 | Outpatient (CLI) | payer MEDICARE, OTHER, SELFPAY ==
[2024-11-01 08:34] LABS: Hematocrit 44.8 % (37-47); Hemoglobin 15.5 g/dL (12.0-15.0); Immature Granulocytes Count 0.000 X10^3/uL (0.0-0.0); Mean Corp Hgb Conc 34.6 g/dL (32-36); Mean Corpuscular Volume 88.0 fL (81-99); Mean Platelet Vol. 10.7 fl (6.2-12.0); NRBC Flagged by Analyzer 0 % (0-5); Platelet Count 227 K/mm3 (150-450); RBC Distribution Width CV 12.3 % (11.6-14.6); RBC Distribution Width SD 39.5 fl (35.1-43.9); Red Blood Count 5.09 M/mm3 (4.2-5.4); White Blood Count 3.9 K/mm3 (4.4-11.0)
[2024-11-01 09:13] LABS: Prothrombin Time (Protime)PT. 13.6 SECONDS (11.7-14.9)
[2024-11-01 09:39] LABS: AST(SGOT) 48 U/L (<=31); Alanine Aminotransfer ALT/SGPT 51 U/L (<=34); Albumin, Serum 4.0 g/dL (3.4-4.8); Alkaline Phosphatase 194 U/L (35-104); Anion Gap 10 (5-15); BUN 15 mg/dL (4-19); BUN/Creat Ratio 19.1 RATIO (10-20); CRP < 3.00 mg/L (0.0-3.0); Calcium,Total 9.3 mg/dL (7.6-11.0); Carbon Dioxide 24.6 mmol/L (21.0-32.0); Chloride 105 mmol/L (98-108); Globulin 3.0 g/dL (2.2-4.2); Glucose 96 mg/dL (70-99); Potassium 4.1 mmol/L (3.3-5.1)
[2024-11-01 10:42] LABS: Ferritin 223 ng/mL (22-378); Iron 102 ug/dL (50-170); Vitamin D,25 Hydroxy 45.7 ng/mL (30-100)
[2024-11-01 10:54] LABS: Cholesterol 141 mg/dL (<=200); Low Density Lipoprotein Calc. 77 mg/dL; Triglycerides 61 mg/dL; Very Low Density Lipoprotein 12 mg/dL (5-40); cholesterol:hdl ratio screen 2.74
== END | disposition home or self-care (01) ==
LOC: LAB 06:57
PROVIDERS: PCP Family Medicine; Referring Provider Internal Medicine; Visit Provider Internal Medicine
DX: K76.0 Fatty (change of) liver, not elsewhere classified (principal); R73.03 Prediabetes; R13.10 Dysphagia, unspecified; E03.9 Hypothyroidism, unspecified; E66.9 Obesity, unspecified; E55.9 Vitamin D deficiency, unspecified; R63.4 Abnormal weight loss; D75.1 Secondary polycythemia; R79.89 Other specified abnormal findings of blood chemistry; K21.00 Gastro-esophageal reflux disease with esophagitis, without bleeding
CPT/HCPCS: 36415; 80053; 80061; 82306; 82728; 83036; 83540; 84439; 84443; 85025; 85610; 86140

== ENCOUNTER → 2024-11-08 | Outpatient (CLI) | payer MEDICARE, OTHER, SELFPAY ==
--- NOTE | 2024-11-08 07:14 | US_ITS ---
PROCEDURE: ABD LIMITED W/ ELASTOGRAPHY REASON FOR EXAM: NAFLD, LIVER FIBROSIS COMPARISON: Prior study dated November 03, 2023. TECHNIQUE: Right upper quadrant abdominal ultrasound. [employer]i ElastQ Imaging shear wave elastography for non-invasive assessment of liver tissue stiffness. Sofi EPIQ Elite. FINDINGS: LIVER: Size: Unremarkable Length: 13.1 cm Echotexture: Normal Contour: Normal Lesions: None identified Elastography: EQI Med: 8.5 kPa EQI Med Steve: 1.67 m/s IQR/Med: 16 %* GALLBLADDER: No stones sludge wall thickening or tenderness. COMMON BILE DUCT: Normal measuring 6 mm . PANCREAS: Normal Visualized portions of the right kidney are unremarkable. No right upper quadrant ascites. US/ABD Limited w/ Elastography IMPRESSION: [id number] degree of hepatic fibrosis. Reference Values: SRU <1.37 m/s (5.7kPa): No to mild fibrosis 1.37 m/s - 2.2 m/s: Moderate to severe fibrosis >2.2 m/s (15kPa): Significant fibrosis / cirrhosis METAVIR Score F2 or higher: 1.34 m/s (5.7kPa) F3 or higher: 1.55 m/s (7.3kPa) F4: 1.80 m/s (10kPa) * If the IQR/Med is >30%, the variance in the measurements is a large and the a ccuracy of the measurement may be in question. Reading Location: [place] [address]
== END | disposition home or self-care (01) ==
LOC: US 07:12
PROVIDERS: PCP Family Medicine; Referring Provider Internal Medicine; Visit Provider Internal Medicine
DX: K76.0 Fatty (change of) liver, not elsewhere classified (principal); K21.00 Gastro-esophageal reflux disease with esophagitis, without bleeding
CPT/HCPCS: 76705; 76981

== ENCOUNTER → 2024-11-23 | Outpatient (CLI) | payer MEDICARE, OTHER, SELFPAY ==
--- NOTE | 2024-11-23 08:54 | BD_ITS ---
PROCEDURE: DEXA BONE DENSITY STUDY 11/23/2024 REASON FOR EXAM: F, age 74 y/o . Postmenopausal. TECHNIQUE: DEXA BONE DENSITY STUDY COMPARISON: Prior study dated November 21, 2022. FINDINGS: BMD and T-SCORES Lumbar spine: 0.767 g/cm2, T-score -2.3 Levels: L1 through L4 Change from prior: Improvement of 4.7%. Left femoral neck: 0.794 g/cm2, T-score -0.5 Femoral neck comparison data not recommended for monitoring change. Left total hip: 0.890 g/cm2, T-score -0.4 Change from prior: Improvement of 1.3%. Right femoral neck: 0.831 g/cm2, T-score -0.2 Femoral neck comparison data not recommended for monitoring change. Right total hip: 0.841 g/cm2, T-score -0.8 Change from prior: Improvement of 1.1%. The World Health Organization has defined the following categories based on bone density: Normal bone density: T-score equal to or greater than -1.0 Osteopenia: T-score between -1.0 and -2.5 Osteoporosis: T-score equal to or less than -2.5 The patient does meet the pharmacological treatment recommendations for prevention of osteoporosis. BD/Dexa Bone Density Study IMPRESSION: OSTEOPENIA. Recommend follow-up as clinically warranted. Reading Location: [id number]
--- NOTE | 2024-11-23 08:54 | BD_ITS ---
PROCEDURE: DEXA BONE DENSITY STUDY 11/23/2024 REASON FOR EXAM: F, age 74 y/o . Postmenopausal. TECHNIQUE: DEXA BONE DENSITY STUDY COMPARISON: Prior study dated November 21, 2022. FINDINGS: BMD and T-SCORES Lumbar spine: 0.767 g/cm2, T-score -2.3 Levels: L1 through L4 Change from prior: Improvement of 4.7%. Left femoral neck: 0.794 g/cm2, T-score -0.5 Femoral neck comparison data not recommended for monitoring change. Left total hip: 0.890 g/cm2, T-score -0.4 Change from prior: Improvement of 1.3%. Right femoral neck: 0.831 g/cm2, T-score -0.2 Femoral neck comparison data not recommended for monitoring change. Right total hip: 0.841 g/cm2, T-score -0.8 Change from prior: Improvement of 1.1%. The World Health Organization has defined the following categories based on bone density: Normal bone density: T-score equal to or greater than -1.0 Osteopenia: T-score between -1.0 and -2.5 Osteoporosis: T-score equal to or less than -2.5 The patient does meet the pharmacological treatment recommendations for prevention of osteoporosis. BD/Dexa Bone Density Study IMPRESSION: OSTEOPENIA. Recommend follow-up as clinically warranted. Reading Location: [id number]
--- OUTSIDE RECORDS SUMMARY | 2024-11-23 17:53 | XMS RPT_ITS | CCD ---
Author Organization [facility] CliniSywy Care Team Providers Care Instrument Maker Name Role Phone THORPE, TY (SANDER HAND) Unavailable Unavailable ROSS, RYAN Unavailable Unavailable ROSS, RYAN Unavailable Unavailable THORPE, TY (SANDER HAND) Unavailable Unavailable THORPE, TY (SANDER HAND) Unavailable Unavailable ROSS, RYAN Unavailable Unavailable Dr. Tyron Knight Primary Care Provider Dr. Tyron Knight Referring Provider FriendDr. Marte Attending Provider Dr. Tyron Knight Primary Care Provider Dr. Tyron Knight Referring Provider 1([facility])[phone] Estuardo Anand Attending Provider 1([facility])[phone] Dr. Estuardo Anand Other Provider 1([facility])[phone] MD Tyron Knight Referring Provider Unavailable Marcelo SANDER HAND, SANDER HAND-C Emilie Gale Attending Provider [phone] Dr. Tyron Knight Primary Care Provider Dr. Tyron Knight Referring Provider Dr. Estuardo Anand Attending Provider Phoebe Boyd Attending Provider Dr. Tyron Jerome Primary Care Provider [phone] Dr. Tyron Knight Referring Provider Dr. Usman Mares Attending Provider 1([facility])[phone] Dr. Tyron Knight MD Primary Care Provider Dr. Usman Mares MD Attending Provider Dr. Usman Mares MD Referring Provider Tyron Kinght E Primary Care Unavailable Doris Maria Attending Unavailable Doris Maria Referring Unavailable Usman Mares Referring Unavailable Schinner, Tyron E Primary Care Unavailable Usman Mares Attending Unavailable Schinner, Tyron E Primary Care Unavailable Schinner, Tyron E Attending Unavailable Schinner, Tyron E Primary Care Unavailable Schinner, Tyron E Attending Unavailable Schinner, Tyron E Referring Unavailable Schinner, Tyron E Primary Care Unavailable Usman Mares Consulting Unavailable SchinnerTyron E Attending Unavailable Schinner, Tyron E Referring Unavailable Usman Mares Referring Unavailable Usman Mares Attending Unavailable Schinner, Tyron E Primary Care Unavailable Schinner, Tyron E Attending Unavailable Schinner, Tyron E Referring Unavailable Schinner, Tyron E Primary Care Unavailable Schinner, Tyron E Primary Care Unavailable Usman Mares Attending Unavailable Schinner, Tyron E Referring Unavailable Schinner, Tyron E Primary Care Unavailable Siva Louise Attending Unavailable Schinner, Tyron E Referring Unavailable Schinner, Tyron E Primary Care Unavailable Usman Mares Attending Unavailable Schinner, Tyron E Referring Unavailable Usman Mares Referring Unavailable Usman Mares Attending Unavailable Schinumm, Tyron E Primary Care Unavailable Allergies Allergy Classification Reported Allergen(s) Allergy Type Date of Onset Reaction(s) Facility (1 source) phenytoin; Translations: [PHENYTOIN SODIUM EXTENDED] Drug Allergy 06-30-2006 [facility] Repository (14 sources) trimethoprim; Translations: [TRIMETHOPRIM] Drug Allergy 06-30-2006 [facility] Repository (12 sources) Phenytoin Drug Allergy 10-16-2021 [facility] (1 source) Phenytoin Drug Allergy 06-07-2024 [facility] Repository Medications Current Medications Medication Drug Class(es) Dates Sig (Normalized) Sig (Original) calcium carbonate 1500 mg oral tablet (12 sources) Start: 10-16-2021 take 1 tablet by mouth once daily Calcium Carbonate (Calcium 600) 600 mg calcium (1,500 mg) tablet Active 600 mg PO DAILY October 16, 2021 12:00am cholecalciferol 0.05 mg oral capsule (12 sources) Vitamin D Start: 10-16-2021 take 1 capsule by mouth once daily Cholecalciferol (Vitamin D3) 50 mcg (2,000 unit) capsule Active 50 ug PO DAILY October 16, 2021 12:00am levothyroxine sodium 0.05 mg oral capsule (12 sources) l-Thyroxine Start: 10-16-2021 Levothyroxine 50 mcg capsule Active 75 ug PO DAILY October 16, 2021 12:00am Start: 10-16-2021 take 75 ug by mouth once daily Levothyroxine Active 75 MCG PO DAILY October 15, 2021 11:00pm Start: 10-16-2021 take 50 ug by mouth once daily Levothyroxine Active 50 MCG PO DAILY October 16, 2021 12:00am Resmetirom (Rezdiffra) 80 mg tablet (2 sources) Start: 12-15-2023 take 1 tablet by mouth once daily Resmetirom (Rezdiffra) 80 mg tablet Active 80 mg PO DAILY 27 03December 15, 2023 12:00am vitamin e 400 unt/ml oral solution (7 sources) Start: 04-30-2022 take 400 [IU] by mouth twice daily Vitamin E Active 400 UNIT PO TWICE A DAY April 30, 2022 12:00am Completed/Discontinued Medications Medication Drug Class(es) Dates Sig (Normalized) Sig (Original) Carboxymethylcellu lose-Citric (Plenity (Welcome Kit)) 0.75 gram capsule (15 sources) Start: 11-21-2022 End: 10-27-2023 take 1 capsule by mouth twice daily before lunch Carboxymethylcellul ose-Citric (Plenity (Welcome Kit)) 0.75 gram capsule Discontinued 3 NMA PO TWICE A DAY 180 0 November 21, 2022 1:26pm October 27, 2023 9:21am administer before lunch and evening meal/dinner Start: 11-21-2022 Carboxymethylc ellulose-Citric (Plenity (Welcome Kit)) 0.75 gram capsule Active 3 CAP PO TWICE A DAY 180 November 21, 2022 12:26pm administer before lunch and evening meal/dinner Start: 11-21-2022 Carboxymethylc ellulose-Citric (Plenity (Welcome Kit)) 0.75 gram capsule Active 3 CAP PO TWICE A DAY 180 November 21, 2022 1:26pm administer before lunch and evening meal/dinner Start: 10-18-2022 End: 11-21-2022 take 1 capsule by mouth twice daily before lunch Carboxymethylcellulose-Citric (Plenity (Welcome Kit)) 0.75 gram capsule Discontinued 3 NMA PO TWICE A DAY 180 0 October 18, 2022 12:00am November 21, 2022 1:26pm administer before lunch and evening meal/dinner Start: 10-18-2022 End: 11-21-2022 Carboxymethylcellulose-Citri c (Plenity (Welcome Kit)) 0.75 gram capsule Discontinued 3 CAP PO TWICE A DAY 180 October 17, 2022 11:00pm November 21, 2022 12:26pm administer before lunch and evening meal/dinner Start: 10-18-2022 End: 11-21-2022 Carboxymethylcellulose-Citri c (Plenity (Welcome Kit)) 0.75 gram capsule Discontinued 3 CAP PO TWICE A DAY 180 October 18, 2022 12:00am November 21, 2022 1:26pm administer before lunch and evening meal/dinner Start: 10-18-2022 Carboxymethylc ellulose-Citric (Plenity (Welcome Kit)) 0.75 gram capsule Active 3 CAP PO TWICE A DAY 180 October 18, 2022 12:00am administer before lunch and evening meal/dinner metFORMIN hydrochloride 500 mg oral tablet (4 sources) Biguanide Start: 06-27-2023 End: 06-07-2024 take 1 tablet by mouth twice daily Metformin 500 mg tablet Discontinued 500 mg PO TWICE A DAY 180 90 December 22, 2023 3:37pm June 07, 2024 10:34am pantoprazole 40 mg delayed release oral tablet (17 sources) Proton Pump Inhibitor Start: 09-30-2022 End: 06-27-2023 take 1 tablet by mouth once daily in the morning Pantoprazole 40 mg tablet,delayed release (DR/EC) Discontinued 40 mg PO EVERY MORNING 90 September 30, 2022 10:07am June 27, 2023 10:17am Start: 05-02-2022 End: 09-30-2022 take 1 tablet by mouth twice daily Pantoprazole 40 mg tablet,delayed release (DR/EC) Discontinued 40 mg PO TWICE A DAY 60 May 02, 2022 1:00am September 30, 2022 10:07am ursodiol 250 mg oral tablet (17 sources) Bile Acid Start: 03-06-2022 End: 06-27-2023 take 1 tablet by mouth twice daily Ursodiol 250 mg tablet Discontinued 250 mg PO TWICE A DAY 60 30 6 March 10, 2023 1:00am June 27, 2023 10:08am Vitamin E 400 unit Tablet (2 sources) Start: 04-30-2022 End: 06-07-2024 take 1 tablet by mouth twice daily Vitamin E 400 unit Tablet Discontinued 400 U PO TWICE A DAY April 30, 2022 1:00am June 07, 2024 10:34am Problems Active Problems Problem Classification Problem Date Documented Da te Episodic/Chronic Diabetes mellitus without complication (2 sources) Prediabetes; Translations: [Prediabetes] 06-07-2024 Episodic Esophageal disorders (12 sources) Gastroesophageal reflux disease; Translations: [Gastro-esophageal reflux disease without esophagitis] 05-17-2022 Chronic Hepatitis (11 sources) Nonalcoholic steatohepatitis; Translations: [Nonalcoholic steatohepatitis (STRATTON)] 05-19-2022 Chronic Osteoporosis (1 source) Age-related osteoporosis without current pathological fracture; Translations: [Age-related osteoporosis without current pathological fracture] Onset: Chronic Other acquired deformities (2 sources) Lumbar spondylolisthesis; Translations: [Spondylolisthesis, lumbar region] 06-04-2024 Episodic Other gastrointestinal disorders (9 sources) Dysphagia; Translations: [Dysphagia, unspecified] 03-06-2022 Episodic Other liver diseases (3 sources) Fatty (change of) liver, not elsewhere classified; Translations: [Metabolic dysfunction-associated steatotic liver disease (MASLD)] Onset: 12-12-2023 Chronic Other nutritional; endocrine; and metabolic disorders (9 sources) Obesity; Translations: [Obesity, unspecified] 03-06-2022 Chronic Other nutritional; endocrine; and metabolic disorders (1 source) Obesity, unspecified; Translations: [Obesity, unspecified] 03-06-2022 Chronic Spondylosis; intervertebral disc disorders; other back problems (2 sources) Degeneration of lumbar intervertebral disc; Translations: [Other intervertebral disc degeneration of lumbar region with discogenic back pain and] 06-04-2024 Chronic Thyroid disorders (2 sources) Nontoxic single thyroid nodule; Translations: [Other specified hypothyroidism] Onset: 4 Chronic Unclassified (1 source) Unknown / UNK(Unknown) Onset: 7 Past or Other Problems Problem Classification Problem Date Documented Da te Episodic/Chronic Other gastrointestinal disorders (2 sources) Dysphagia, unspecified; Translations: [Dysphagia, unspecified] Onset: 12-31-2023 03-06-2022 Episodic Other hematologic conditions (1 source) Secondary polycythemia; Translations: [Secondary polycythemia] Onset: 06-22-2024 Episodic Unclassified (20 sources) Encounter for screening for malignant neoplasm of colon; Translations: [Other specified abnormal findings of blood chemistry] Onset: 04-02-2017 Episodic Results Test Name Value Interpretation Reference Range Facility ABD Limited w/ Elastographyo n 11-08-2024 ABD Limited w/ Elastography [facility] [address] [place] [address] [id number] ABD Limited w/ Elastography MR#: [id number] Acct: [id number] Name: RACHEL MAY Rep #: [id number] : 1950 F 74 From: Bandar yung MD PCP: Dr. Tyron Knight MD Status: REG CLI Study: ABD Limited w/ Elastography Date of Exam: 10/26 08/20 Exam# [id number] Ordering Dr: Usman Mares MD PROCEDURE: ABD LIMITED W/ ELASTOGRAPHY REASON FOR EXAM: NAFLD, LIVER FIBROSIS COMPARISON: Prior study dated November 03, 2023. TECHNIQUE: Right upper quadrant abdominal ultrasound. Sofi ElastQ Imaging shear wave elastography for non- invasive assessment of liver tissue stiffness. Sofi EPIQ Elite. FINDINGS: LIVER: Size: Unremarkable Length: 13.1 cm Echotexture: Normal Contour: Normal Lesions: None identified Elastography: EQI Med: 8.5 kPa EQI Med Steve: 1.67 m/s IQR/Med: 16 %* GALLBLADDER: No stones sludge wall thickening or tenderness. COMMON BILE DUCT: Normal measuring 6 mm . PANCREAS: Normal Visualized portions of the right kidney are unremarkable. No right upper quadrant ascites. US/ABD Limited w/ Elastography IMPRESSION: Gqwo-[id number] degree of hepatic fibrosis. Reference Values: SRU <1.37 m/s (5.7kPa): No to mild fibrosis 1.37 m/s - 2.2 m/s: Moderate to severe fibrosis >2.2 m/s (15kPa): Significant fibrosis / cirrhosis METAVIR Score F2 or higher: 1.34 m/s (5.7kPa) F3 or higher: 1.55 m/s (7.3kPa) F4: 1.80 m/s (10kPa) * If the IQR/Med is >30%, the variance in the measurements is a large and the accuracy of the measurement may be in question. Reading Location: [place] [address] CC: Dr. Tyron Knight MD; Dr. Usman Mares MD Marriage Counselor: Signed Normal [facility] Absolute lymphocyte countOrd ered By: Usman Mares on 11-01-2024 Lymphocytes Auto (Unsp spec) [#/Vol] 1.44 10*3/uL 0.83-4.51 [facility] Absolute neutrophil countOrd ered By: Usman Mares on 11-01-2024 Neutrophils (Bld) [#/Vol] 1.6 10*3/uL Low 2.0-7.7 [facility] Anion gap in Serum or Plasma Ordered By: Usman Mares on 11-01-2024 Anion gap [Moles/Vol] 10 mmol/L 5-15 [facility] Automated lymphocyte count a s percentage of total leukocytesOrdered By: Usman Mares on 11-01-2024 Lymphocytes/100 WBC Auto (Unsp spec) 36.8 % 19-41 [facility] BUN/creatinine ratioOrdered By: Usman Mares on 11-01-2024 Urea nitrogen/Creatinine [Mass ratio] 19.1 mg/mg 10-20 [facility] Basophil percentageOrdered B y: Usman Mares on 11-01-2024 Basophils/100 WBC (Bld) 1.5 % High 0-1 [facility] Bilirubin, totalOrdered By: Usman Mares on 11-01-2024 Bilirubin [Mass/Vol] 0.60 mg/dL 0.00-1.30 [facility] CBC W/Diff, Automatedon 07-0 7-2025 Absolute Lymph 1.44 X10 3/uL Normal 0.83-4.51 [facility] Comment on above: Order Comment: SEND CBCD,CMP,TSH,FT4 TO Performed By: #### L 501.9520, L500.4050, L501.6710, L100.0100, L300.3900, L506.0400, L501.9985 ####[facility] [address] [place], [address] Absolute Neut 1.6 X10 3/uL Low 2.0-7.7 [facility] Comment on above: Order Comment: SEND CBCD,CMP,TSH,FT4 TO Performed By: #### L 501.9520, L500.4050, L501.6710, L100.0100, L300.3900, L506.0400, L501.9985 ####[facility] [address] [place], [address] Basophils/100 WBC (Bld) 1.5 % High 0-1 [facility] Comment on above: Order Comment: SEND CBCD,CMP,TSH,FT4 TO Performed By: #### L 501.9520, L500.4050, L501.6710, L100.0100, L300.3900, L506.0400, L501.9985 ####[facility] [address] [place], [address] Eosinophils/100 WBC (Bld) 4.6 % Normal 0-5 [facility] Comment on above: Order Comment: SEND CBCD,CMP,TSH,FT4 TO Performed By: #### L 501.9520, L500.4050, L501.6710, L100.0100, L300.3900, L506.0400, L501.9985 ####[facility] [address] [place], [address] Erythrocyte distribution width (RBC) [Ratio] 12.3 % Normal 11.6-14.6 [facility] Comment on above: Order Comment: SEND CBCD,CMP,TSH,FT4 TO Performed By: #### L 501.9520, L500.4050, L501.6710, L100.0100, L300.3900, L506.0400, L501.9985 ####[facility] [address] [facility] [place], [place], [phone] Hematocrit (Bld) [Volume fraction] 44.8 % Normal 37-47 [facility] Comment on above: Order Comment: SEND CBCD,CMP,TSH,FT4 TO Performed By: #### L 501.9520, L500.4050, L501.6710, L100.0100, L300.3900, L506.0400, L501.9985 ####[facility] [address] [facility] [place], [place], [phone] Hemoglobin (Bld) [Mass/Vol] 15.5 g/dL High 12.0-15.0 [facility] Comment on above: Order Comment: SEND CBCD,CMP,TSH,FT4 TO Performed By: #### L 501.9520, L500.4050, L501.6710, L100.0100, L300.3900, L506.0400, L501.9985 ####[facility] [address] [facility] [place], [place], [phone] IG% 0.000 Normal 0.0-0.9 [facility] Comment on above: Order Comment: SEND CBCD,CMP,TSH,FT4 TO Result Comment: IG% - Immature Granulocytes (promyelocytes, myelocytes and metamyelocytes) > 1% indicates that a LEFT SHIFT is Present. Performed By: #### L 501.9520, L500.4050, L501.6710, L100.0100, L300.3900, L506.0400, L501.9985 ####[facility] [address] [place], [address] Lymphocytes/100 WBC (Bld) 36.8 % Normal 19-41 [facility] Comment on above: Order Comment: SEND CBCD,CMP,TSH,FT4 TO Performed By: #### L 501.9520, L500.4050, L501.6710, L100.0100, L300.3900, L506.0400, L501.9985 ####[facility] [address] [facility] [place], [address] MCH (RBC) [Entitic mass] 30.5 pg Normal 27.0-32.0 [facility] Comment on above: Order Comment: SEND CBCD,CMP,TSH,FT4 TO Performed By: #### L 501.9520, L500.4050, L501.6710, L100.0100, L300.3900, L506.0400, L501.9985 ####[facility] [address] [facility] [place], [address] MCHC (RBC) [Mass/Vol] 34.6 g/dL Normal 32-36 [facility] Comment on above: Order Comment: SEND CBCD,CMP,TSH,FT4 TO Performed By: #### L 501.9520, L500.4050, L501.6710, L100.0100, L300.3900, L506.0400, L501.9985 ####[facility] [address] [facility] [place], [address] MCV (RBC) [Entitic vol] 88.0 fL Normal 81-99 [facility] Comment on above: Order Comment: SEND CBCD,CMP,TSH,FT4 TO Performed By: #### L 501.9520, L500.4050, L501.6710, L100.0100, L300.3900, L506.0400, L501.9985 ####[facility] [address] [place], [address] Monocytes/100 WBC (Bld) 15.6 % High 0-10 [facility] Comment on above: Order Comment: SEND CBCD,CMP,TSH,FT4 TO Performed By: #### L 501.9520, L500.4050, L501.6710, L100.0100, L300.3900, L506.0400, L501.9985 ####[facility] [address] [place], [address] Neutrophils/100 WBC (Bld) 41.5 % Low 47-70 [facility] Comment on above: Order Comment: SEND CBCD,CMP,TSH,FT4 TO Performed By: #### L 501.9520, L500.4050, L501.6710, L100.0100, L300.3900, L506.0400, L501.9985 ####[facility] [address] [place], [address] Nucleated RBC (Bld) [#/Vol] 0 10*3/uL Normal 0-5 [facility] Comment on above: Order Comment: SEND CBCD,CMP,TSH,FT4 TO Performed By: #### L 501.9520, L500.4050, L501.6710, L100.0100, L300.3900, L506.0400, L501.9985 ####[facility] [address] [place], [address] Platelet mean volume (Bld) [Entitic vol] 10.7 fL Normal 6.2-12.0 [facility] Comment on above: Order Comment: SEND CBCD,CMP,TSH,FT4 TO Performed By: #### L 501.9520, L500.4050, L501.6710, L100.0100, L300.3900, L506.0400, L501.9985 ####[facility] [address] [place], [address] Platelets (Bld) [#/Vol] 227 10*3/uL Normal 150-450 [facility] Comment on above: Order Comment: SEND CBCD,CMP,TSH,FT4 TO Performed By: #### L 501.9520, L500.4050, L501.6710, L100.0100, L300.3900, L506.0400, L501.9985 ####[facility] [address] [place], [address] RBC (Bld) [#/Vol] 5.09 10*6/uL Normal 4.2-5.4 [facility] Comment on above: Order Comment: SEND CBCD,CMP,TSH,FT4 TO Performed By: #### L 501.9520, L500.4050, L501.6710, L100.0100, L300.3900, L506.0400, L501.9985 ####[facility] [address] [place], [address] RDW SD 39.5 fl Normal 35.1-43.9 [facility] Comment on above: Order Comment: SEND CBCD,CMP,TSH,FT4 TO Performed By: #### L 501.9520, L500.4050, L501.6710, L100.0100, L300.3900, L506.0400, L501.9985 ####[facility] [address] [place], [address] WBC (Bld) [#/Vol] 3.9 10*3/uL Low 4.4-11.0 [facility] Comment on above: Order Comment: SEND CBCD,CMP,TSH,FT4 TO Performed By: #### L 501.9520, L500.4050, L501.6710, L100.0100, L300.3900, L506.0400, L501.9985 ####[facility] [address] [place], [address] Absolute Neut Normal 2.0-7.7 [facility] Comment on above: Order Comment: Order Date: 10/28/24 Order Info: 0184-1 - CBCD Result Comment: DUP Performed By: #### L 100.0100, L500.4100 #### [facility] [address] [place], [address] HCT Normal 37-47 [facility] Comment on above: Order Comment: Order Date: 10/28/24 Order Info: 0184-1 - CBCD Result Comment: DUP Performed By: #### L 100.0100, L500.4100 #### [facility] [address] [place], [address] HGB Normal 12.0-15.0 [facility] Comment on above: Order Comment: Order Date: 10/28/24 Order Info: [id number]- - CBCD Result Comment: DUP Performed By: #### L 100.0100, L500.4100 #### [facility] [address] [place], [address] MCH Normal 27.0-32.0 [facility] Comment on above: Order Comment: Order Date: 10/28/24 Order Info: 0184-1 - CBCD Result Comment: DUP Performed By: #### L 100.0100, L500.4100 #### [facility] [address] [place], [address] MCHC Normal 32-36 [facility] Comment on above: Order Comment: Order Date: 10/28/24 Order Info: 0184-1 - CBCD Result Comment: DUP Performed By: #### L 100.0100, L500.4100 #### [facility] [address] [place], [address] MCV Normal 81-99 [facility] Comment on above: Order Comment: Order Date: 10/28/24 Order Info: 0184-1 - CBCD Result Comment: DUP Performed By: #### L 100.0100, L500.4100 #### [facility] [address] [place], [address] NEUT% Normal 47-70 [facility] Comment on above: Order Comment: Order Date: 10/28/24 Order Info: 0184-1 - CBCD Result Comment: DUP Performed By: #### L 100.0100, L500.4100 #### [facility] [address] [place], [address] PLT Normal 150-450 [facility] Comment on above: Order Comment: Order Date: 10/28/24 Order Info: 0184-1 - CBCD Result Comment: DUP Performed By: #### L 100.0100, L500.4100 #### [facility] [address] [place], [address] RBC Normal 4.2-5.4 [facility] Comment on above: Order Comment: Order Date: 10/28/24 Order Info: 0184-1 - CBCD Result Comment: DUP Performed By: #### L 100.0100, L500.4100 #### [facility] [address] [place], [address] RDW CV Normal 11.6-14.6 [facility] Comment on above: Order Comment: Order Date: 10/28/24 Order Info: 0184-1 - CBCD Result Comment: DUP Performed By: #### L 100.0100, L500.4100 #### [facility] [address] [place], [address] RDW SD Normal 35.1-43.9 [facility] Comment on above: Order Comment: Order Date: 10/28/24 Order Info: 0184-1 - CBCD Result Comment: DUP Performed By: #### L 100.0100, L500.4100 #### [facility] [address] [place], [place], [id number] WBC Normal 4.4-11.0 [facility] Comment on above: Order Comment: Order Date: 10/28/24 Order Info: 0184-1 - CBCD Result Comment: DUP Performed By: #### L 100.0100, L500.4100 #### [facility] [address] [place], [address] CRPon 11-01-2024 C-REACTIVE PROT < 3.00 Normal 0.0-3.0 [facility] Comment on above: Order Comment: SEND CBCD,CMP,TSH,FT4 TO Performed By: #### L 501.9520, L500.4050, L501.6710, L100.0100, L300.3900, L506.0400, L501.9985 ####[facility] [address] [place], [place], [id number] Calculated very low density lipoprotein (VLDL) cholesterol measurementOrdered By: Tyron Knight on 11-01-2024 Calculated very low density lipoprotein (VLDL) cholesterol measurement 12 mg/dL 5-40 [facility] Carbon dioxide, total [Moles /volume] in Central venous bloodOrdered By: Usman Mares on 11-01-2024 CO2 [Moles/Vol] 24.6 mmol/L 21.0-32.0 [facility] Chloride assayOrdered By: Torrey Mares on 11-01-2024 Chloride [Moles/Vol] 105 mmol/L 98-108 [facility] Comprehensive Metabolic Prof ilon 11-01-2024 Albumin [Mass/Vol] 4.0 g/dL Normal 3.4-4.8 [facility] Comment on above: Order Comment: SEND CBCD,CMP,TSH,FT4 TO Performed By: #### L 501.9520, L500.4050, L501.6710, L100.0100, L300.3900, L506.0400, L501.9985 ####[facility] [address] [place], [address] Albumin/Globulin [Mass ratio] 1.3 {ratio} Normal 0.9-2.4 [facility] Comment on above: Order Comment: SEND CBCD,CMP,TSH,FT4 TO Performed By: #### L 501.9520, L500.4050, L501.6710, L100.0100, L300.3900, L506.0400, L501.9985 ####[facility] [address] [place], [address] ALK PHOS 194 U/L High 35-104 [facility] Comment on above: Order Comment: SEND CBCD,CMP,TSH,FT4 TO Performed By: #### L 501.9520, L500.4050, L501.6710, L100.0100, L300.3900, L506.0400, L501.9985 ####[facility] [address] [place], [address] ALT [Catalytic activity/Vol] 51 U/L High <=34 [facility] Comment on above: Order Comment: SEND CBCD,CMP,TSH,FT4 TO Performed By: #### L 501.9520, L500.4050, L501.6710, L100.0100, L300.3900, L506.0400, L501.9985 ####[facility] [address] [place], [address] AST [Catalytic activity/Vol] 48 U/L High <=31 [facility] Comment on above: Order Comment: SEND CBCD,CMP,TSH,FT4 TO Performed By: #### L 501.9520, L500.4050, L501.6710, L100.0100, L300.3900, L506.0400, L501.9985 ####[facility] [address] [place], [place], [id number] Bilirubin [Mass/Vol] 0.60 mg/dL Normal 0.00-1.30 [facility] Comment on above: Order Comment: SEND CBCD,CMP,TSH,FT4 TO Performed By: #### L 501.9520, L500.4050, L501.6710, L100.0100, L300.3900, L506.0400, L501.9985 ####[facility] [address] [place], [place], [id number] BUN/CRE 19.1 RATIO Normal 10-20 [facility] Comment on above: Order Comment: SEND CBCD,CMP,TSH,FT4 TO Performed By: #### L 501.9520, L500.4050, L501.6710, L100.0100, L300.3900, L506.0400, L501.9985 ####[facility] [address] [place], [place], [phone] Calcium [Mass/Vol] 9.3 mg/dL Normal 7.6-11.0 [facility] Comment on above: Order Comment: SEND CBCD,CMP,TSH,FT4 TO Performed By: #### L 501.9520, L500.4050, L501.6710, L100.0100, L300.3900, L506.0400, L501.9985 ####[facility] [address] [place], [address] Chloride [Moles/Vol] 105 mmol/L Normal 98-108 [facility] Comment on above: Order Comment: SEND CBCD,CMP,TSH,FT4 TO Performed By: #### L 501.9520, L500.4050, L501.6710, L100.0100, L300.3900, L506.0400, L501.9985 ####[facility] [address] [place], [place], [id number] CO2 [Moles/Vol] 24.6 mmol/L Normal 21.0-32.0 [facility] Comment on above: Order Comment: SEND CBCD,CMP,TSH,FT4 TO Performed By: #### L 501.9520, L500.4050, L501.6710, L100.0100, L300.3900, L506.0400, L501.9985 ####[facility] [address] [place], [address] Creatinine [Mass/Vol] 0.76 mg/dL Normal 0.70-1.20 [facility] Comment on above: Order Comment: SEND CBCD,CMP,TSH,FT4 TO Performed By: #### L 501.9520, L500.4050, L501.6710, L100.0100, L300.3900, L506.0400, L501.9985 ####[facility] [address] [place], [place], [id number] GAP 10 Normal 5-15 [facility] Comment on above: Order Comment: SEND CBCD,CMP,TSH,FT4 TO Performed By: #### L 501.9520, L500.4050, L501.6710, L100.0100, L300.3900, L506.0400, L501.9985 ####[facility] [address] [place], [place], [phone] GFR/1.73 sq M.predicted among non-blacks MDRD (S/P/Bld) [Vol rate/Area] 83 mL/min/{1.73_m2} Normal >60 [facility] Comment on above: Order Comment: SEND CBCD,CMP,TSH,FT4 TO Result Comment: mL/m in/1.73m2 CKD-EPI Creatinine Equation (2020) Performed By: #### L 501.9520, L500.4050, L501.6710, L100.0100, L300.3900, L506.0400, L501.9985 ####[facility] [address] [place], [address] Globulin (S) [Mass/Vol] 3.0 g/dL Normal 2.2-4.2 [facility] Comment on above: Order Comment: SEND CBCD,CMP,TSH,FT4 TO Performed By: #### L 501.9520, L500.4050, L501.6710, L100.0100, L300.3900, L506.0400, L501.9985 ####[facility] [address] [place], [address] Glucose [Mass/Vol] 96 mg/dL Normal 70-99 [facility] Comment on above: Order Comment: SEND CBCD,CMP,TSH,FT4 TO Performed By: #### L 501.9520, L500.4050, L501.6710, L100.0100, L300.3900, L506.0400, L501.9985 ####[facility] [address] [place], [address] Potassium [Moles/Vol] 4.1 mmol/L Normal 3.3-5.1 [facility] Comment on above: Order Comment: SEND CBCD,CMP,TSH,FT4 TO Performed By: #### L 501.9520, L500.4050, L501.6710, L100.0100, L300.3900, L506.0400, L501.9985 ####[facility] [address] [place], [address] Sodium [Moles/Vol] 140 mmol/L Normal 133-145 [facility] Comment on above: Order Comment: SEND CBCD,CMP,TSH,FT4 TO Performed By: #### L 501.9520, L500.4050, L501.6710, L100.0100, L300.3900, L506.0400, L501.9985 ####[facility] [address] [place], [address] T PROT 7.0 g/dL Normal 5.9-8.4 [facility] Comment on above: Order Comment: SEND CBCD,CMP,TSH,FT4 TO Performed By: #### L 501.9520, L500.4050, L501.6710, L100.0100, L300.3900, L506.0400, L501.9985 ####[facility] [address] [place], [address] Urea nitrogen [Mass/Vol] 15 mg/dL Normal 4-19 [facility] Comment on above: Order Comment: SEND CBCD,CMP,TSH,FT4 TO Performed By: #### L 501.9520, L500.4050, L501.6710, L100.0100, L300.3900, L506.0400, L501.9985 ####[facility] [address] [place], [place], [phone] Eosinophil percentageOrdered By: Usman Mares on 11-01-2024 Eosinophils/100 WBC (Bld) 4.6 % 0-5 [facility] Erythrocyte distribution wid th ratioOrdered By: Usman Mares on 11-01-2024 Erythrocyte distribution width (RBC) [Ratio] 12.3 % 11.6-14.6 [facility] Erythrocyte distribution wid th standard deviationOrdered By: Usmancarlos Mares on 11-01-2024 Erythrocyte distribution width (RBC) [Ratio] 39.5 fl 35.1-43.9 [facility] Ferritinon 11-01-2024 Ferritin [Mass/Vol] 223 ng/mL Normal 22-378 [facility] Comment on above: Order Comment: Order Date: 10/28/24 Order Info: [id number] - CMP Order Date: 06/30/24 Order Info: [id number] - LIPID Order Info: [id number] - TSH Order Info: [id number] - FE Order Info: [id number] - SAMPSON Order Info: [id number] - T4F Performed By: #### L 503.6150, L503.6550 #### [facility] [address] [place], [place], [address] Glomerular filtration rate ( GFR) estimation/1.73 sq m using serum, plasma, or whole bOrdered By: Usman Mares on 11-01-2024 GFR/1.73 sq M.predicted among non-blacks MDRD (S/P/Bld) [Vol rate/Area] 83 mL/min/{1.73_m2} >60 [facility] Comment on above: mL/min/1.73m2 CKD-EP I Creatinine Equation (2020) Hematocrit Auto (Bld) [Volum e fraction]Ordered By: Usman Mares on 11-01-2024 Hematocrit (Bld) [Volume fraction] 44.8 % 37-47 [facility] Hemoglobin A1con 11-01-2024 HbA1c (Bld) [Mass fraction] 5.4 % Normal <=5.6 [facility] Comment on above: Order Comment: SEND CBCD,CMP,TSH,FT4 TO Result Comment: Norm al < 5.7 % Prediabetic 5.7 - 6.4 % Diabetic >or= 6.5 % Please note range changes. Performed By: #### L 501.9520, L500.4050, L501.6710, L100.0100, L300.3900, L506.0400, L501.9985 ####[facility] [address] [place], [place], [phone] Hemoglobin A1c percentageOrd ered By: Usman Mares on 11-01-2024 HbA1c (Bld) [Mass fraction] 5.4 % <5.7 [facility] Comment on above: Normal < 5.7 % Predi abetic 5.7 - 6.4 % Diabetic >or= 6.5 % Please note range changes. Hemoglobin measurementOrdere d By: Usman Mares on 11-01-2024 Hemoglobin (Bld) [Mass/Vol] 15.5 g/dL High 12.0-15.0 [facility] Immature granulocytes/100 WB C Auto (Bld)Ordered By: Usman Mares on 11-01-2024 Immature granulocytes/100 WBC (Bld) 0.000 % 0.0-0.9 [facility] Comment on above: IG% - Immature Granu locytes (promyelocytes, myelocytes and metamyelocytes) > 1% indicates that a LEFT SHIFT is Present. International normalized rat io (INR) calculationOrdered By: Usman Mares on 11-01-2024 INR Coag (Bld) [Relative time] 1.0 {INR} [facility] Ironon 11-01-2024 Iron [Mass/Vol] 102 ug/dL Normal 50-170 [facility] Comment on above: Order Comment: Order Date: 10/28/24 Order Info: [id number] - CMP Order Date: 06/30/24 Order Info: [id number] - LIPID Order Info: [id number] - TSH Order Info: [id number] - FE Order Info: [id number] - SAMPSON Order Info: [id number] - T4F Performed By: #### L 503.6150, L503.6550 #### [facility] [address] [place] [address], [id number] Iron measurement (mass/mass) Ordered By: Tyron Knight on 11-01-2024 Iron (Unsp spec) [Mass/Mass] 102 ug/dL 50-170 [facility] LDL calc ser/plasOrdered By: Tyron Knight on 11-01-2024 Cholesterol in LDL [Mass/Vol] 77 mg/dL [facility] Comment on above: Nwseyqwzov=674-354 m g/dL & Higher Pcjs=628 mg/dL or greater Laboratory - Chemistry and C hemistry - challengeOrdered By: Usman Mares on 11-01-2024 AST [Catalytic activity/Vol] 48 U/L High <32 [facility] Lipid Profileon 11-01-2024 CHOL:HDL 2.74 Normal [facility] Comment on above: Order Comment: Order Date: 10/28/24 Order Info: [id number] - CMP Order Date: 06/30/24 Order Info: [id number] - LIPID Order Info: 3 - TSH Order Info: [id number] FE Order Info: [id number] - SAMPSON Order Info: 3023-10 T4 Performed By: #### L 100.0100, L500.4100 #### [facility] [address] [place], [address] Cholesterol [Mass/Vol] 141 mg/dL Normal <=200 [facility] Comment on above: Order Comment: Order Date: 10/28/24 Order Info: [id number] - CMP Order Date: 06/30/24 Order Info: [id number] - LIPID Order Info: 3 - TSH Order Info: [id number] FE Order Info: [id number] - SAMPSON Order Info: 3023-10 T4 Result Comment: Chol esterol level, Desirable <200 mg/dL Borderline high cholesterol 200-239 mg/dL High cholesterol >=240 mg/dL Recommendations of the NCEP Adult Treatment Panel for the following risk-cutoff thresholds for the [place] population. Performed By: #### L 100.0100, L5.4100 #### [facility] [address] [place], [address] Cholesterol in HDL [Mass/Vol] 51 mg/dL Normal [facility] Comment on above: Order Comment: Order Date: 10/28/24 Order Info: [id number] - CMP Order Date: 06/30/24 Order Info: [id number] - LIPID Order Info: 3 - TSH Order Info: [id number] FE Order Info: [id number] - SAMPSON Order Info: 3023-10 T4 Result Comment: Mary Kay onal Cholesterol Education Program (NCEP) guidelines: <40 mg/dL: Low HDL-cholesterol (major risk factor for CHD) >= 60 mg/dL: High HDL-cholesterol (negative risk factor for CHD) HDL-cholesterol is affected by a number of factors, e.g. smoking, exercise, hormones, sex and age. Performed By: #### L 100.0100, L500.4100 #### [facility] [address] [place], [place], [address] Cholesterol in LDL [Mass/Vol] 77 mg/dL Normal [facility] Comment on above: Order Comment: Order Date: 10/28/24 Order Info: [id number] - CMP Order Date: 06/30/24 Order Info: [id number] - LIPID Order Info: [id number] - TSH Order Info: 4 - FE Order Info: 4 - SAMPSON Order Info: 7 - T4F Result Comment: Bord qbbdes=872-060 mg/dL Higher Vqre=736 mg/dL or greater Performed By: #### L 100.0100, L500.4100 #### [facility] [address] [place], [place], [phone] (369) Cholesterol in VLDL [Mass/Vol] 12 mg/dL Normal 5-40 [facility] Comment on above: Order Comment: Order Date: 10/28/24 Order Info: [id number]- - CMP Order Date: 06/30/24 Order Info: [id number] - LIPID Order Info: 3 - TSH Order Info: [id number] - FE Order Info: [id number] - SAMPSON Order Info: 7 - T4F Performed By: #### L 100.0100, L500.4100 #### [facility] [address] [place], [place], [address] (441) Triglyceride [Mass/Vol] 61 mg/dL Normal [facility] Comment on above: Order Comment: Order Date: 10/28/24 Order Info: [id number] - CMP Order Date: 06/30/24 Order Info: [id number] - LIPID Order Info: 6-3 - TSH Order Info: [id number] - FE Order Info: 2274 - SAMPSON Order Info: 302-7 - T4F Result Comment: The drugs N-Acetylcysteine and Metamizole may falsely depress this assay. Normal range: <150 mg/dL Borderline High: 150-199 mg/dL High: 200-499 mg/dL Very High: >500 mg/dL Performed By: #### L 100.0100, L500.4100 #### [facility] [address] [place], [address] MCV (mean corpuscular volume ) determinationOrdered By: Usman Mares on 11-01-2024 MCV (RBC) [Entitic vol] 88.0 fL 81-99 [facility] Mean corpuscular hemoglobin (MCH) determinationOrdered By: Usman Mares on 11-01-2024 MCH (RBC) [Entitic mass] 30.5 pg 27.0-32.0 [facility] Mean corpuscular hemoglobin concentration (MCHC) determinationOrdered By: Usman Mares on 11-01-2024 MCHC (RBC) [Mass/Vol] 34.6 g/dL 32-36 [facility] Mean platelet volume determi nationOrdered By: Usman Mares on 11-01-2024 Platelet mean volume (Bld) [Entitic vol] 10.7 fL 6.2-12.0 [facility] Monocyte percentageOrdered B y: Usman Mares on 11-01-2024 Monocytes/100 WBC (Bld) 15.6 % High 0-10 [facility] Neutrophil percentageOrdered By: Usman Mares on 11-01-2024 Neutrophils/100 WBC (Bld) 41.5 % Low 47-70 [facility] Nucleated red blood cell per centageOrdered By: Usman Mares on 11-01-2024 Nucleated RBC/100 WBC (Bld) [Ratio] 0 % 0-5 [facility] Platelet countOrdered By: Torrey Mares on 11-01-2024 Platelets (Bld) [#/Vol] 227 10*3/uL 150-450 [facility] Potassium measurement (mass/ volume)Ordered By: Usman Mares on 11-01-2024 Potassium (Unsp spec) [Mass/Vol] 4.1 mmol/L 3.3-5.1 [facility] Prothrombin Time w/INRon INR Coag (PPP) [Relative time] 1.0 {INR} Normal [facility] Comment on above: Order Comment: SEND CBCD,CMP,TSH,FT4 TO Performed By: #### L 501.7477, L500.9500, L501.6710, L100.0100, L300.3900, L506.0400, L501.9985 ####[facility] [address] [place], [address] PT Coag (PPP) [Time] 13.6 s Normal 11.7-14.9 [facility] Comment on above: Order Comment: SEND CBCD,CMP,TSH,FT4 TO Performed By: #### L 501.9520, L500.4050, L501.6710, L100.0100, L300.3900, L506.0400, L501.9985 ####[facility] [address] [place], [place], [address] Prothrombin timeOrdered By: Usman Mares on 11-01-2024 PT Coag (PPP) [Time] 13.6 s 11.7-14.9 [facility] RBC Auto (Bld) [#/Vol]Ordere d By: Usman Mares on 11-01-2024 RBC (Bld) [#/Vol] 5.09 10*6/uL 4.2-5.4 [facility] Screening total cholesterol/ high density lipoprotein (HDL) cholesterol ratioOrdered By: Tyron Knight on 11-01-2024 Cholesterol.total/Chol esterol in HDL [Mass ratio] 2.74 {ratio} [facility] Serum creatinine measurement (mass/volume)Ordered By: Usman Mares on 11-01-2024 Creatinine [Mass/Vol] 0.76 mg/dL 0.70-1.20 [facility] Serum globulin measurementOr dered By: Usman Mares on 11-01-2024 Globulin (S) [Mass/Vol] 3.0 g/dL 2.2-4.2 [facility] Serum glucose measurement (m ass/volume)Ordered By: Usman Mares on 11-01-2024 Glucose [Mass/Vol] 96 mg/dL 70-99 [facility] Serum or plasma C reactive p rotein measurement (mass/volume)Ordered By: Usman Mares on 11-01-2024 CRP [Mass/Vol] mg/L 0.0-3.0 [facility] Serum or plasma alanine aponte otransferase (ALT) measurementOrdered By: Usman Mares on 11-01-2024 ALT [Catalytic activity/Vol] 51 U/L High <35 [facility] Serum or plasma albumin negra urement (mass/volume)Ordered By: Usman Mares on 11-01-2024 Albumin [Mass/Vol] 4.0 g/dL 3.4-4.8 [facility] Serum or plasma albumin/glob ulin mass ratioOrdered By: Usman Mares on 11-01-2024 Albumin/Globulin [Mass ratio] 1.3 {ratio} 0.9-2.4 [facility] Serum or plasma alkaline angela sphatase measurementOrdered By: Usman Mares on 11-01-2024 ALP [Catalytic activity/Vol] 194 U/L High 35-104 [facility] Serum or plasma calcium negra urement (mass/volume)Ordered By: Usman Mares on 11-01-2024 Calcium [Mass/Vol] 9.3 mg/dL 7.6-11.0 [facility] Serum or plasma cholesterol in HDL measurement (mass/volume)Ordered By: Tyron Knight on 11-01-2024 Cholesterol in HDL [Mass/Vol] 51 mg/dL >40 [facility] Comment on above: National Cholesterol Education Program (NCEP) guidelines:<40 mg/dL: Low HDL-cholesterol (major risk factor for CHD)>= 60 mg/dL: High HDL-cholesterol (negative risk factor for CHD)HDL-cholesterol is affected by a number of factors, e.g. smoking, exercise, hormones, sex and age. Serum or plasma cholesterol measurement (mass/volume)Ordered By: Tyron Knight on 11-01-2024 Cholesterol [Mass/Vol] 141 mg/dL <201 [facility] Comment on above: Cholesterol level, D esirable <200 mg/dLBorderline high cholesterol 200-239 mg/dLHigh cholesterol >=240 mg/dLRecommendations of the NCEP Adult Treatment Panel for the following risk-cutoff thresholds for the [place] population. Serum or plasma ferritin rajesh surement (mass/volume)Ordered By: Tyron Knight on 11-01-2024 Ferritin [Mass/Vol] 223 ng/mL 22-378 [facility] Serum or plasma urea nitroge n measurement (mass/volume)Ordered By: Usman Mares on 11-01-2024 Urea nitrogen [Mass/Vol] 15 mg/dL 4-19 [facility] Sodium levelOrdered By: Prosper Mares on 11-01-2024 Sodium [Moles/Vol] 140 mmol/L 133-145 [facility] T4 Free Directon 11-01-2024 T4 FREE DIRECT 1.10 ng/dL Normal 0.76-1.46 [facility] Comment on above: Order Comment: SEND CBCD,CMP,TSH,FT4 TO Performed By: #### L 501.9520, L500.4050, L501.6710, L100.0100, L300.3900, L506.0400, L501.9985 ####[facility] [address] [place], [address] T4 freeOrdered By: Usman narayanan on 11-01-2024 Free T4 [Mass/Vol] 1.10 ng/dL 0.76-1.46 [facility] TSH DL <= 0.005 mIU/L QnOrde red By: Usman Mares on 11-01-2024 TSH Qn 0.041 uIU/mL Low 0.300-4.200 [facility] Thyroid Stim Hormone (TSH)on 11-01-2024 TSH 0.041 uIU/mL Low 0.300-4.200 [facility] Comment on above: Order Comment: SEND CBCD,CMP,TSH,FT4 TO Performed By: #### L 501.9520, L500.4050, L501.6710, L100.0100, L300.3900, L506.0400, L501.9985 ####[facility] [address] [place], [address] Total proteinOrdered By: Camila Mares on 11-01-2024 Protein [Mass/Vol] 7.0 g/dL 5.9-8.4 [facility] Triglycerides measurementOrd ered By: Tyron Knight on 11-01-2024 Triglyceride [Mass/Vol] 61 mg/dL <199 [facility] Comment on above: The drugs N-Acetylcy steine and Metamizole may falsely depress this assay. Normal range: <150 mg/dLBorderline High: 150-199 mg/dLHigh: 200-499 mg/dLVery High: >500 mg/dL Vitamin D,25 Hydroxyon 11-01 Vitamin D 25-OH 45.7 ng/mL Normal 30-100 [facility] Comment on above: Order Comment: Order Date: 10/28/24Order Info: [id number] - CMPOrder Date: 06/30/24Order Info: [id number] - LIPIDOrder Info: [id number] - TSHOrder Info: [id number] - FEOrder Info: [id number] - FEROrder Info: [id number] - T4F Result Comment: Diana min D Status Deficiency: <20 ng/mL (50nmol/L) Insufficiency: 20-30 ng/mL (50-75 nmol/L) Sufficiency: 30-100 ng/mL (75-250 nmol/L) Toxicity: >100 ng/mL (>250 nmol/L) Performed By: #### L 506.1001 ####[facility] [address] [place], [place], [address] White blood cell (WBC) count Ordered By: Usman Mares on 11-01-2024 WBC (Bld) [#/Vol] 3.9 10*3/uL Low 4.4-11.0 [facility] Ferritinon 06-09-2024 Ferritin [Mass/Vol] 168 ng/mL Normal 8-252 [facility] Comment on above: Order Comment: Order Date: 12/30/23Order Info: [id number] - CMPOrder Info: [id number] - TSHOrder Info: [id number] - [id number] ADD FERRITIN, IRON AND IRON BINDING TO BLOOD DONE ON06/08/24 Performed By: #### L 503.6550, L501.9985, L503.6075, L503.6150 ####[facility] [address] [place], [place], [address] Hemoglobin A1con 06-09-2024 HbA1c (Bld) [Mass fraction] 5.4 % Normal 3.8-5.6 [facility] Comment on above: Order Comment: KRISTINA Luna AD TO BLOOD DONE ON 06/08/24 Result Comment: Norm al < 5.7 % Prediabetic 5.7 - 6.4 % Diabetic >or= 6.5 % Please note range changes. Performed By: #### L 503.6550, L501.9985, L503.6075, L503.6150 ####[facility] [address] [place], [address] Ironon 06-09-2024 Iron [Mass/Vol] 118 ug/dL Normal 50-170 [facility] Comment on above: Order Comment: Order Date: 12/30/23Order Info: [id number] - CMPOrder Info: [id number] - TSHOrder Info: [id number] - [id number] ADD FERRITIN, IRON AND IRON BINDING TO BLOOD DONE ON06/08/24 Performed By: #### L 503.6550, L501.9985, L503.6075, L503.6150 ####[facility] [address] [place], [address] Iron Binding Capacity,Totalo n 06-09-2024 TIBC 394 ug/dL Normal 250-450 [facility] Comment on above: Order Comment: Order Date: 12/30/23Order Info: [id number] - CMPOrder Info: [id number] - TSHOrder Info: [id number] - [id number] ADD FERRITIN, IRON AND IRON BINDING TO BLOOD DONE ON06/08/24 Performed By: #### L 503.6550, L501.9985, L503.6075, L503.6150 ####[facility] [address] [place], [place], [address] CBC W/Diff, Automatedon 05-29 Absolute Lymph 1.53 X10 3/uL Normal 0.83-4.51 [facility] Comment on above: Order Comment: Order Date: 12/30/23Order Info: [id number] - CBCD Performed By: #### L 506.1000, L500.4050, L100.0100, L506.0400, L501.9520 ####[facility] [address] [place], [address] Absolute Neut 2.6 X10 3/uL Normal 2.0-7.7 [facility] Comment on above: Order Comment: Order Date: 12/30/23Order Info: [id number] - CBCD Performed By: #### L 506.1000, L500.4050, L100.0100, L506.0400, L501.9520 ####[facility] [address] [place], [address] Basophils/100 WBC (Bld) 1.6 % High 0-1 [facility] Comment on above: Order Comment: Order Date: 12/30/23Order Info: [id number] - CBCD Performed By: #### L 506.1000, L500.4050, L100.0100, L506.0400, L501.9520 ####[facility] [address] [place], [address] Eosinophils/100 WBC (Bld) 3.4 % Normal 0-5 [facility] Comment on above: Order Comment: Order Date: 12/30/23Order Info: [id number] - CBCD Performed By: #### L 506.1000, L500.4050, L100.0100, L506.0400, L501.9520 ####[facility] [address] [place], [address] Erythrocyte distribution width (RBC) [Ratio] 12.3 % Normal 11.6-14.6 [facility] Comment on above: Order Comment: Order Date: 12/30/23Order Info: 0184-1 - CBCD Performed By: #### L 506.1000, L500.4050, L100.0100, L506.0400, L501.9520 ####[facility] [address] [place], [address] Hematocrit (Bld) [Volume fraction] 45.2 % Normal 37-47 [facility] Comment on above: Order Comment: Order Date: 12/30/23Order Info: 0184-1 - CBCD Performed By: #### L 506.1000, L500.4050, L100.0100, L506.0400, L501.9520 ####[facility] [address] [place], [address] Hemoglobin (Bld) [Mass/Vol] 15.6 g/dL High 12.0-15.0 [facility] Comment on above: Order Comment: Order Date: 12/30/23Order Info: 0184-1 - CBCD Performed By: #### L 506.1000, L500.4050, L100.0100, L506.0400, L501.9520 ####[facility] [address] [place], [address] IG% 0.200 Normal 0.0-0.9 [facility] Comment on above: Order Comment: Order Date: 12/30/23Order Info: 0184-1 - CBCD Result Comment: IG% - Immature Granulocytes (promyelocytes, myelocytes and metamyelocytes) > 1% indicates that a LEFT SHIFT is Present. Performed By: #### L 506.1000, L500.4050, L100.0100, L506.0400, L501.9520 ####[facility] [address] [place], [address] Lymphocytes/100 WBC (Bld) 30.6 % Normal 19-41 [facility] Comment on above: Order Comment: Order Date: 12/30/23Order Info: 0184-1 - CBCD Performed By: #### L 506.1000, L500.4050, L100.0100, L506.0400, L501.9520 ####[facility] [address] [place], [address] MCH (RBC) [Entitic mass] 30.2 pg Normal 27.0-32.0 [facility] Comment on above: Order Comment: Order Date: 12/30/23Order Info: 0184-1 - CBCD Performed By: #### L 506.1000, L500.4050, L100.0100, L506.0400, L501.9520 ####[facility] [address] [place], [address] MCHC (RBC) [Mass/Vol] 34.5 g/dL Normal 32-36 [facility] Comment on above: Order Comment: Order Date: 12/30/23Order Info: 0184-1 - CBCD Performed By: #### L 506.1000, L500.4050, L100.0100, L506.0400, L501.9520 ####[facility] [address] [place], [address] MCV (RBC) [Entitic vol] 87.6 fL Normal 81-99 [facility] Comment on above: Order Comment: Order Date: 12/30/23Order Info: 0184-1 - CBCD Performed By: #### L 506.1000, L500.4050, L100.0100, L506.0400, L501.9520 ####[facility] [address] [place], [address] Monocytes/100 WBC (Bld) 12.8 % High 0-10 [facility] Comment on above: Order Comment: Order Date: 12/30/23Order Info: 0184-1 - CBCD Performed By: #### L 506.1000, L500.4050, L100.0100, L506.0400, L501.9520 ####[facility] [address] [place], [address] Neutrophils/100 WBC (Bld) 51.4 % Normal 47-70 [facility] Comment on above: Order Comment: Order Date: 12/30/23Order Info: 0184-1 - CBCD Performed By: #### L 506.1000, L500.4050, L100.0100, L506.0400, L501.9520 ####[facility] [address] [place], [address] Nucleated RBC (Bld) [#/Vol] 0 10*3/uL Normal 0-5 [facility] Comment on above: Order Comment: Order Date: 12/30/23Order Info: 0184-1 - CBCD Performed By: #### L 506.1000, L500.4050, L100.0100, L506.0400, L501.9520 ####[facility] [address] [place], [address] Platelet mean volume (Bld) [Entitic vol] 9.7 fL Normal 6.2-12.0 [facility] Comment on above: Order Comment: Order Date: 12/30/23Order Info: 0184-1 - CBCD Performed By: #### L 506.1000, L500.4050, L100.0100, L506.0400, L501.9520 ####[facility] [address] [place], [address] Platelets (Bld) [#/Vol] 275 10*3/uL Normal 150-450 [facility] Comment on above: Order Comment: Order Date: 12/30/23Order Info: 0184-1 - CBCD Performed By: #### L 506.1000, L500.4050, L100.0100, L506.0400, L501.9520 ####[facility] [address] [place], [address] RBC (Bld) [#/Vol] 5.16 10*6/uL Normal 4.2-5.4 [facility] Comment on above: Order Comment: Order Date: 12/30/23Order Info: 0184-1 - CBCD Performed By: #### L 506.1000, L500.4050, L100.0100, L506.0400, L501.9520 ####[facility] [address] [place], [address] RDW SD 39.6 fl Normal 35.1-43.9 [facility] Comment on above: Order Comment: Order Date: 12/30/23Order Info: 0184-1 - CBCD Performed By: #### L 506.1000, L500.4050, L100.0100, L506.0400, L501.9520 ####[facility] [address] [place], [address] WBC (Bld) [#/Vol] 5.0 10*3/uL Normal 4.4-11.0 [facility] Comment on above: Order Comment: Order Date: 12/30/23Order Info: 0184-1 - CBCD Performed By: #### L 506.1000, L500.4050, L100.0100, L506.0400, L501.9520 ####[facility] [address] [place], [address] Comprehensive Metabolic Prof scon 06-08-2024 Albumin [Mass/Vol] 3.5 g/dL Normal 3.2-5.0 [facility] Comment on above: Order Comment: Order Date: 12/30/23Order Info: 0786-1 - CMPOrder Info: 3016-3 - TSHOrder Info: 3024-7 - T4F Performed By: #### L 506.1000, L500.4050, L100.0100, L506.0400, L501.9520 ####[facility] [address] [place], [address] Albumin/Globulin [Mass ratio] 0.9 {ratio} Normal 0.9-2.4 [facility] Comment on above: Order Comment: Order Date: 12/30/23Order Info: 0786-1 - CMPOrder Info: 3016-3 - TSHOrder Info: 3024-7 - T4F Performed By: #### L 506.1000, L500.4050, L100.0100, L506.0400, L501.9520 ####[facility] [address] [place], [address] ALK P 142 U/L High 45-117 [facility] Comment on above: Order Comment: Order Date: 12/30/23Order Info: 0786-1 - CMPOrder Info: 3015-06 - TSHOrder Info: 3024-7 - T4F Performed By: #### L 506.1000, L500.4050, L100.0100, L506.0400, L501.9520 ####[facility] [address] [place], [address] ALT [Catalytic activity/Vol] 45 U/L Normal 13-56 [facility] Comment on above: Order Comment: Order Date: 12/30/23Order Info: 0786- - CMPOrder Info: 3015-06 - TSHOrder Info: 7 - T4F Performed By: #### L 506.1000, L500.4050, L100.0100, L506.0400, L501.9520 ####[facility] [address] [place], [address] AST [Catalytic activity/Vol] 33 U/L Normal 15-37 [facility] Comment on above: Order Comment: Order Date: 12/30/23Order Info: 0786-1 - CMPOrder Info: 3 - TSHOrder Info: 3024-7 - T4F Performed By: #### L 506.1000, L500.4050, L100.0100, L506.0400, L501.9520 ####[facility] [address] [place], [address] Bilirubin [Mass/Vol] 0.60 mg/dL Normal 0.20-1.00 [facility] Comment on above: Order Comment: Order Date: 12/30/23Order Info: 0786-1 - CMPOrder Info: 3015-06 - TSHOrder Info: 3024-7 - T4F Result Comment: For patients on eltrombopag therapy, use of Dimension [place] TBIL is not recommended. Performed By: #### L 506.1000, L500.4050, L100.0100, L506.0400, L501.9520 ####[facility] [address] [place], [address] BUN/CRE 21.5 RATIO High 10-20 [facility] Comment on above: Order Comment: Order Date: 12/30/23Order Info: 0786-1 - CMPOrder Info: 3 - TSHOrder Info: 7 - T4F Performed By: #### L 506.1000, L500.4050, L100.0100, L506.0400, L501.9520 ####[facility] [address] [place], [address] CA,Total 9.2 mg/dL Normal 8.5-10.1 [facility] Comment on above: Order Comment: Order Date: 12/30/23Order Info: 0786-1 - CMPOrder Info: 3 - TSHOrder Info: 3023-10 - T4F Performed By: #### L 506.1000, L500.4050, L100.0100, L506.0400, L501.9520 ####[facility] [address] [place], [address] Chloride [Moles/Vol] 107 mmol/L Normal 98-107 [facility] Comment on above: Order Comment: Order Date: 12/30/23Order Info: 0786-1 - CMPOrder Info: 63 - TSHOrder Info: 3027 - T4F Performed By: #### L 506.1000, L500.4050, L100.0100, L506.0400, L501.9520 ####[facility] [address] [place], [address] CO2 [Moles/Vol] 27.0 mmol/L Normal 21.0-32.0 [facility] Comment on above: Order Comment: Order Date: 12/30/23Order Info: 07-1 - CMPOrder Info: 3 - TSHOrder Info: 3024-7 - T4F Performed By: #### L 506.1000, L500.4050, L100.0100, L506.0400, L501.9520 ####[facility] [address] [place], [address] Creatinine [Mass/Vol] 0.79 mg/dL Normal 0.55-1.02 [facility] Comment on above: Order Comment: Order Date: 12/30/23Order Info: 785-1 - CMPOrder Info: 3015-06 - TSHOrder Info: 7 - T4F Result Comment: The validity of the calculated GFR GFRAA in patients over 70 years has not been determined. Clinical correlation is essential. Performed By: #### L 506.1000, L500.4050, L100.0100, L506.0400, L501.9520 ####[facility] [address] [place], [address] EST GFR - AA 92 mL/min Normal >60 [facility] Comment on above: Order Comment: Order Date: 12/30/23Order Info: 0786- - CMPOrder Info: 63 - TSHOrder Info: 3024-7 - T4F Result Comment: Afri can [place] GFR Calc Performed By: #### L 506.1000, L500.4050, L100.0100, L506.0400, L501.9520 ####[facility] [address] [place], [address] GAP 5 Normal 5-15 [facility] Comment on above: Order Comment: Order Date: 12/30/23Order Info: 0786-1 - CMPOrder Info: 63 - TSHOrder Info: 3024-7 - T4F Performed By: #### L 506.1000, L500.4050, L100.0100, L506.0400, L501.9520 ####[facility] [address] [place], [address] GFR/1.73 sq M.predicted among non-blacks MDRD (S/P/Bld) [Vol rate/Area] 76 mL/min/{1.73_m2} Normal >60 [facility] Comment on above: Order Comment: Order Date: 12/30/23Order Info: 0786-1 - CMPOrder Info: 6-3 - TSHOrder Info: 3024-7 - T4F Result Comment: Non- GFR Calc Performed By: #### L 506.1000, L500.4050, L100.0100, L506.0400, L501.9520 ####[facility] [address] [place], [address] Globulin (S) [Mass/Vol] 4.0 g/dL Normal 2.2-4.2 [facility] Comment on above: Order Comment: Order Date: 12/30/23Order Info: 0786-1 - CMPOrder Info: 6-3 - TSHOrder Info: 3024-7 - T4F Performed By: #### L 506.1000, L500.4050, L100.0100, L506.0400, L501.9520 ####[facility] [address] [place], [address] Glucose [Mass/Vol] 102 mg/dL Normal 74-106 [facility] Comment on above: Order Comment: Order Date: 12/30/23Order Info: 0786-1 - CMPOrder Info: 6-3 - TSHOrder Info: 3024-7 - T4F Result Comment: Fast ing Glucose result from 100 to 125 mg/dL suggests IMPAIRED HOMEOSTASIS per A.D.A. criteria. Performed By: #### L 506.1000, L500.4050, L100.0100, L506.0400, L501.9520 ####[facility] [address] [place], [address] Potassium [Moles/Vol] 4.2 mmol/L Normal 3.5-5.1 [facility] Comment on above: Order Comment: Order Date: 12/30/23Order Info: 785-1 - CMPOrder Info: 3015-06 - TSHOrder Info: 4-7 - T4F Performed By: #### L 506.1000, L500.4050, L100.0100, L506.0400, L501.9520 ####[facility] [address] [place], [address] Sodium [Moles/Vol] 138 mmol/L Normal 136-145 [facility] Comment on above: Order Comment: Order Date: 12/30/23Order Info: 785-1 - CMPOrder Info: 3015-06 - TSHOrder Info: 7 - T4F Performed By: #### L 506.1000, L500.4050, L100.0100, L506.0400, L501.9520 ####[facility] [address] [place], [address] T PROT 7.5 g/dL Normal 6.4-8.2 [facility] Comment on above: Order Comment: Order Date: 12/30/23Order Info: 785- - CMPOrder Info: 3015-06 - TSHOrder Info: 7 - T4F Performed By: #### L 506.1000, L500.4050, L100.0100, L506.0400, L501.9520 ####[facility] [address] [place], [address] Urea nitrogen [Mass/Vol] 17 mg/dL Normal 7-18 [facility] Comment on above: Order Comment: Order Date: 12/30/23Order Info: 785-1 - CMPOrder Info: 3015-06 - TSHOrder Info: 7 - T4F Performed By: #### L 506.1000, L500.4050, L100.0100, L506.0400, L501.9520 ####[facility] [address] [place], [address] T4 Free Directon 06-08-2024 T4 FREE DIRECT 0.87 ng/dL Normal 0.76-1.46 [facility] Comment on above: Order Comment: Order Date: 12/30/23Order Info: 0786-1 - CMPOrder Info: 3016-3 - TSHOrder Info: 3024-7 - T4F Performed By: #### L 506.1000, L500.4050, L100.0100, L506.0400, L501.9520 ####[facility] [address] [place], [address] Thyroid Stim Hormone (TSH)on 06-08-2024 TSH 0.103 uIU/mL Low 0.358-3.740 [facility] Comment on above: Order Comment: Order Date: 12/30/23Order Info: 0786-1 - CMPOrder Info: 6-3 - TSHOrder Info: 7 - T4F Performed By: #### L 506.1000, L500.4050, L100.0100, L506.0400, L501.9520 ####[facility] [address] [place], [place], [address] Vitamin D,25 Hydroxyon 06-08 Vitamin D 25-OH 69.6 ng/mL Normal [facility] Comment on above: Order Comment: Order Date: 12/30/23Order Info: 10549-7 - VITD25 Result Comment: Diana min D 25(OH) Status Range Deficiency <20 ng/mL (50nmol/L) Insufficiency 20 - 30 ng/mL (50 - 75 nmol/L) Sufficiency 30 - 100 ng/mL (75 - 250 nmol/L) Toxicity >100 ng/mL (>250 nmol/L) Performed By: #### L 506.1000, L500.4050, L100.0100, L506.0400, L501.9520 ####[facility] [address] [place], [address] Gastroenterology Visit Repor ton 06-07-2024 Gastroenterology Visit Report [facility] [address] [place] [address] OFFICE VISIT Date of Service: 06/07/24 MR#: [id number] Acct: [id number] Name: RACHEL MAY Rep #: [id number] : 1950 Provider: Dr. Usman kaplan MD Age/Sex: 73/F Location: [facility] Status: Signed Intake Vital Signs 12/12/23 07:52 06/03/24 14:32 06/07/24 08:54 Height 5 ft 2 in 4 ft 11 in 4 ft 11 in Weight: 145 lb BMI 29.2 BP 129/79 H Blood Pressure Location Rt brachial Position Sitting Pulse 63 Pulse Oximetry (%) 99 Oxygen Delivery Method room air Intake Visit Reasons: 6 M FU Chief Complaint: STRATTON Allergies phenytoin (From Dilantin) Allergy (Intermediate, Verified 06/07/24 08:57) Hives trimethoprim (From Trimpex) Allergy (Intermediate, Verified 06/07/24 08:57) Hives Medications ???Medication ???Instructions ???Recorded ???Confirmed ???Type calcium carbonate (Calcium 600) 600 mg PO DAILY 10/16/21 06/07/24 History cholecalciferol (vitamin D3) 50 50 mcg PO DAILY 10/16/21 06/07/24 History mcg (2,000 unit) capsule levothyroxine 50 mcg capsule 75 mcg PO DAILY 10/16/21 06/07/24 History resmetirom 80 mg tablet (Rezdiffra) 80 mg PO DAILY #30 tabs 4 06/07/24 Rx Have you fallen in the past year?: No PFSH Medical History Wears glasses Post-menopausal Thyroid disease Arthritis Back pain History of hiatal hernia Gastric reflux Non-smoker History of edema Thyroid nodule Osteopenia Vitamin D deficiency Erythrocytosis Luis Carlos's thyroiditis Surgical History Hx of colonoscopy Hx of hand surgery Hx of laminectomy Hx of hand surgery Hx of craniotomy Hx of tubal ligation Hx of dilation and curettage Family History Aunt Breast cancer Maternal Social History household members: spouse current occupational status: retired Smoking Status: Never smoker alcohol intake: never substance use type: does not use seatbelt use: always do you feel safe at home: Yes additional social history: - Bill- Retired HPI HPI Chief Complaint: STRATTON Details: RACHEL MAY, is a 73 F who presents to the office today for follow up. EGD was indicated for dysphagia. EGD revealed LA grade a reflux esophagitis, moderate Schatzki ring which Friend dilated, medium sized hiatal hernia. Biopsies of the duodenum and esophagus were benign. Colonoscopy was normal. She reports she has had no dysphagia since dilation of Schatzki ring. Lean STRATTON more than metabolic Stratton. She does not have any other comorbidities including diabetes, morbid obesity, hypercholesterolemia, hypertension. 11/2021 liver elastography: Liver stiffness measures 5.8 kPa. Being treated with vitamin E 400 IU twice daily and ursodiol 250 mg twice daily. AST and ALT normalized in April 2022. Alk phos elevated 161. GGT has been elevated. Rachel established with this clinic 12.19.21 with referral from PCP for chronically elevated LFT. Initially noted when she first saw her informatics physician, Dr. Calloway; then established with [facility] for osteoarthritis who did not feel she needed to pursue arthritic treatment. Then established with Dr. Ibarra who did not have more to recommend. FH brother also has elevated LFT with questionable elevated LFT; sister has bladder cancer and then had elevated LFT. No additional liver/fatty liver disease. Biochemical workup CBC (hgb H15.3), CMP, iron, TIBC, iron sat, transferrin, ferritin, total bilirubin, Vit D25, Free T 41.18 AST H86/ALT H125/Alk phos H179 without additional pertinent abnormality. 12/26/2021 US/Elastography Parenchyma/Organ IMPRESSION: Liver stiffness measures 5.8 kPa compatible with F2-F3 (Mild to moderate liver fibrosis) Metavir score. 05/02/21 EGD and Colonoscopy Impression: - LA Grade A reflux esophagitis. Biopsied. - Moderate Schatzki ring. Dilated - Medium-sized hiatal hernia. - No gross lesions in the second portion of the duodenum. Biopsied. Findings: The perianal and digital rectal examinations were normal. The exam was otherwise normal throughout the examined colon. The terminal ileum appeared normal. Impression: - The examined portion of the ileum was normal. - No specimens collected. MICROSCOPIC DIAGNOSIS A. Duodenum, biopsy: Fragments of duodenal mucosa, no pathologic diagnosis. B. Distal esophagus, biopsy: Fragments of gastroesophageal mucosa with chronic inflammation. Intestinal metaplasia (goblet cell metaplasia) not identified. See comment US 11.12.22 OV 02.21.23 Pt reports doing well since last visit. The patient had her tooth pu (more content not included)... Normal [facility] Orthopedic Visit Reporton Orthopedic Visit Report [facility] [address] [place] [address] OFFICE VISIT Date of Service: 06/03/24 MR#: [id number] Acct: [id number] Name: RACHEL MAY Rep #: [id number] : 1950 Provider: Dr. Siva Louise MD Age/Sex: 73/F Location: [facility] Status: Signed Intake Vital Signs 12/12/23 07:52 04/29/24 09:38 06/03/24 14:32 Height 5 ft 2 in 5 ft 2 in 4 ft 11 in Weight: 150 lb 144 lb 6 oz BMI 27.4 29.1 BP 135/84 H Blood Pressure Location Rt brachial Position Sitting Pulse 60 Pulse Oximetry (%) 96 Oxygen Delivery Method room air Intake Visit Reasons: LUMBAR SPINE Allergies phenytoin (From Dilantin) Allergy (Intermediate, Verified 06/03/24 14:33) Hives trimethoprim (From Trimpex) Allergy (Intermediate, Verified 06/03/24 14:33) Hives Have you fallen in the past year?: No PFSH Medical History Wears glasses Post-menopausal Thyroid disease Arthritis Back pain History of hiatal hernia Gastric reflux Non-smoker History of edema Thyroid nodule Osteopenia Vitamin D deficiency Erythrocytosis Luis Carlos's thyroiditis Surgical History Hx of colonoscopy Hx of hand surgery Hx of laminectomy Hx of hand surgery Hx of craniotomy Hx of tubal ligation Hx of dilation and curettage Family History Aunt Breast cancer Maternal Social History household members: spouse current occupational status: retired Smoking Status: Never smoker alcohol intake: never substance use type: does not use seatbelt use: always do you feel safe at home: Yes additional social history: - Bill- Retired HPI LUMBAR SPINE Details: This documentation accurately reflects the service provided and the decisions made by me, Dr. Siva Louise MD 06/03/24 8641. Part of today???s visit was documented by Thelma GARCIA, acting as scribe. RACHEL MAY is a 73 year old F here NEW patient today for low back pain. She has been having pain for several years and has had a lumbar laminectomy L5-S1 in [address] Ezequiel Paul who is now retired which did help with her pain but had been having some mild pain that has gotten worse within the last few weeks. She was having trouble sitting due to the pain. She did see Dr. Gray and he recommended that she try PT which she did and had an evaluation. When she had her eval they told her their wasn't much they could do for her because she was already doing exercises at home. She states that the home exercises that she does tends to increase her back pain. She did have one injection before her surgery that wasn't helpful but hasn't had any since. She did have xrays with [facility] about a month ago but denies any recent MRI. Her last MRI was before her back surgery. Patient started using the treadmill again since she made the appointment and states the pain has gotten better. No trouble walking distances. Patient did go see physical therapy and got home exercises but that made her pain much worse. Non diabetic, no heart/lung problems, not currently taking any blood thinners. Ortho Exam General General: Yes no acute distress Neurologic: Yes alert and Yes oriented x3 Psychologic: Yes reasonable and appropriate Spine SPINE TESTING CERVICAL THORACIC LUMBAR Musculoskeletal Strength 0=absent - 5=normal Details: Examination the back shows no tenderness today. Neurologic valuation of lower extremity shows 5 x 5 power level shows normal sensations in all dermatomes. Coding Level of Care Code Off vis,new,level 3 Diagnoses Spondylolisthesis, lumbar region M43.16 Other intervertebral disc degeneration, lumbar region with discogenic back pain and lower extremity pain M51.362 Time Spent (min) 35 Assessment and Plan Assessment and Plan (1) Spondylolisthesis, lumbar region: Status: Acute (2) Other intervertebral disc degeneration, lumbar region with discogenic back pain and lower extremity pain: Status: Acute Plan Reviewed x-ray imaging from outside source. X-rays from [facility] were available which show L4- 5 grade 1 spondylolisthesis with mild dynamic instability. L5-S1 show reduced disc height with degeneration. Explained to patient that without an MRI it is difficult to assess the extent of stenosis. Recommended to patient that she could proceed with an MRI at this time unless she feels like she can wait since her pain has gotten better. If she decides she will reach out to us for an MRI order. Recommended patient see pain management for consideration of injections. She can let the office know if she would like a referral sen (more content not included)... Normal [facility] Thyroidon 01-09-2024 Thyroid [facility] [address] [place], [place] [address] Thyroid MR#: [id number] Acct: [id number] Name: RACHEL MAY Rep #: [id number] : 1950 F 73 From: Chino Fry DO PCP: Dr. Tyron Knight MD Status: [facility] Study: Thyroid Date of Exam: 01/09/24 Exam# [id number] Ordering Dr: Tyron Knight MD [id number] INDICATION: nodule EXAMINATION: Ultrasound US Thyroid (eg thyroid, parathyroid, parotid) TECHNIQUE: Penaloza scale and color doppler imaging was performed of the thyroid gland. COMPARISON: October 19, 2021 FINDINGS: RIGHT THYROID LOBE: 4.0 x 1.0 x 1.1 cm. Heterogeneous echotexture with normal vascularity. [Slightly hypoechoic upper pole 5 x 5 x 2 mm nodule is noted, not appreciated on previous study. Previously noted right mid thyroid nodule is not appreciated on the current study. LEFT THYROID LOBE: 3.3 x 0.8 x 0.8 cm. Homogeneous echotexture with normal vascularity. [No thyroid nodules are present. ISTHMUS: 1 mm. No thyroid nodules are present. US/Thyroid IMPRESSION: Mild heterogeneity of the thyroid lobes. Right thyroid upper pole nodule. Electronically Signed: Chino Fry DO at 19:26 EDT , CC: Dr. Tyron Knight MD Marriage Counselor: Signed Normal [facility] Comprehensive Metabolic Prof ilon 12-30-2023 Albumin [Mass/Vol] 3.5 g/dL Normal 3.2-5.0 [facility] Comment on above: Order Comment: Order Date: 12/30/23Order Info: 0786-1 - CMPOrder Info: 3016-3 - TSHOrder Info: 2500-7 - TIBCOrder Info: 2498-4 - FEOrder Info: 2276-4 - FEROrder Info: 3024-7 - T4F Performed By: #### L 503.6150, L506.1000, L501.9520, L503.6075, L500.4050, L503.6550, L506.0400 ####[facility] [address] [place], [place], [address] Albumin/Globulin [Mass ratio] 0.9 {ratio} Normal 0.9-2.4 [facility] Comment on above: Order Comment: Order Date: 12/30/23Order Info: 0786-1 - CMPOrder Info: 3016-3 - TSHOrder Info: 2500-7 - TIBCOrder Info: 2498-4 - FEOrder Info: 2276-4 - FEROrder Info: 3024-7 - T4F Performed By: #### L 503.6150, L506.1000, L501.9520, L503.6075, L500.4050, L503.6550, L506.0400 ####[facility] [address] [place], [address] ALK P 98 U/L Normal 45-117 [facility] Comment on above: Order Comment: Order Date: 12/30/23Order Info: 0786-1 - CMPOrder Info: 3015-3 - TSHOrder Info: 7 - TIBCOrder Info: 249- - FEOrder Info: 2275-4 - FEROrder Info: 302-7 - T4F Performed By: #### L 503.6150, L506.1000, L501.9520, L503.6075, L500.4050, L503.6550, L506.0400 ####[facility] [address] [place], [address] ALT [Catalytic activity/Vol] 39 U/L Normal 13-56 [facility] Comment on above: Order Comment: Order Date: 12/30/23Order Info: 0786-1 - CMPOrder Info: 3015-3 - TSHOrder Info: 2499-10 - TIBCOrder Info: 24911-29 - FEOrder Info: 2275-4 - FEROrder Info: 302-7 - T4F Performed By: #### L 503.6150, L506.1000, L501.9520, L503.6075, L500.4050, L503.6550, L506.0400 ####[facility] [address] [place], [address] AST [Catalytic activity/Vol] 30 U/L Normal 15-37 [facility] Comment on above: Order Comment: Order Date: 12/30/23Order Info: 0786-1 - CMPOrder Info: 6-3 - TSHOrder Info: 2499-7 - TIBCOrder Info: 249- - FEOrder Info: 227-4 - FEROrder Info: 3024-7 - T4F Performed By: #### L 503.6150, L506.1000, L501.9520, L503.6075, L500.4050, L503.6550, L506.0400 ####[facility] [address] [place], [address] Bilirubin [Mass/Vol] 0.30 mg/dL Normal 0.20-1.00 [facility] Comment on above: Order Comment: Order Date: 12/30/23Order Info: 0786-1 - CMPOrder Info: 3015-3 - TSHOrder Info: 2499-7 - TIBCOrder Info: 2498-4 - FEOrder Info: 2275-4 - FEROrder Info: 3024-7 - T4F Result Comment: For patients on eltrombopag therapy, use of Dimension [place] TBIL is not recommended. Performed By: #### L 503.6150, L506.1000, L501.9520, L503.6075, L500.4050, L503.6550, L506.0400 ####[facility] [address] [place], [address] BUN/CRE 18.2 RATIO Normal 10-20 [facility] Comment on above: Order Comment: Order Date: 12/30/23Order Info: 0786-1 - CMPOrder Info: 6-3 - TSHOrder Info: 7 - TIBCOrder Info: 2498-4 - FEOrder Info: 2275-4 - FEROrder Info: 3024-7 - T4F Performed By: #### L 503.6150, L506.1000, L501.9520, L503.6075, L500.4050, L503.6550, L506.0400 ####[facility] [address] [place], [place], [phone] CA,Total 9.4 mg/dL Normal 8.5-10.1 [facility] Comment on above: Order Comment: Order Date: 12/30/23Order Info: 0786-1 - CMPOrder Info: 3015-3 - TSHOrder Info: 7 - TIBCOrder Info: 249-4 - FEOrder Info: 227-4 - FEROrder Info: 4-7 - T4F Performed By: #### L 503.6150, L506.1000, L501.9520, L503.6075, L500.4050, L503.6550, L506.0400 ####[facility] [address] [place], [address] Chloride [Moles/Vol] 103 mmol/L Normal 98-107 [facility] Comment on above: Order Comment: Order Date: 12/30/23Order Info: 86-1 - CMPOrder Info: 3015-3 - TSHOrder Info: 7 - TIBCOrder Info: 4 - FEOrder Info: 4 - FEROrder Info: 3023-7 - T4F Performed By: #### L 503.6150, L506.1000, L501.9520, L503.6075, L500.4050, L503.6550, L506.0400 ####[facility] [address] [place], [address] CO2 [Moles/Vol] 28.0 mmol/L Normal 21.0-32.0 [facility] Comment on above: Order Comment: Order Date: 12/30/23Order Info: 785-1 - CMPOrder Info: 3015-3 - TSHOrder Info: 7 - TIBCOrder Info: 4 - FEOrder Info: 4 - FEROrder Info: 3023-7 - T4F Performed By: #### L 503.6150, L506.1000, L501.9520, L503.6075, L500.4050, L503.6550, L506.0400 ####[facility] [address] [place], [address] Creatinine [Mass/Vol] 0.77 mg/dL Normal 0.55-1.02 [facility] Comment on above: Order Comment: Order Date: 12/30/23Order Info: 785-1 - CMPOrder Info: 3015-3 - TSHOrder Info: 2500-7 - TIBCOrder Info: 2498-4 - FEOrder Info: 2276-4 - FEROrder Info: 3024-7 - T4F Result Comment: The validity of the calculated GFR GFRAA in patients over 70 years has not been determined. Clinical correlation is essential. Performed By: #### L 503.6150, L506.1000, L501.9520, L503.6075, L500.4050, L503.6550, L506.0400 ####[facility] [address] [place], [address] EST GFR - AA 95 mL/min Normal >60 [facility] Comment on above: Order Comment: Order Date: 12/30/23Order Info: 0786-1 - CMPOrder Info: 3 - TSHOrder Info: 2499-10 - TIBCOrder Info: 2498-4 - FEOrder Info: 2275-4 - FEROrder Info: 3023-7 - T4F Result Comment: Afri can [place] GFR Calc Performed By: #### L 503.6150, L506.1000, L501.9520, L503.6075, L500.4050, L503.6550, L506.0400 ####[facility] [address] [place], [place], [phone](562) GAP 6 Normal 5-15 [facility] Comment on above: Order Comment: Order Date: 12/30/23Order Info: 0786-1 - CMPOrder Info: 3 - TSHOrder Info: 2499-10 - TIBCOrder Info: 249-4 - FEOrder Info: 227-4 - FEROrder Info: 3024-7 - T4F Performed By: #### L 503.6150, L506.1000, L501.9520, L503.6075, L500.4050, L503.6550, L506.0400 ####[facility] [address] [place], [place], [phone](847) GFR/1.73 sq M.predicted among non-blacks MDRD (S/P/Bld) [Vol rate/Area] 78 mL/min/{1.73_m2} Normal >60 [facility] Comment on above: Order Comment: Order Date: 12/30/23Order Info: 0786-1 - CMPOrder Info: 3015-3 - TSHOrder Info: 2500-7 - TIBCOrder Info: 249-4 - FEOrder Info: 2276-4 - FEROrder Info: 3024-7 - T4F Result Comment: Non- GFR Calc Performed By: #### L 503.6150, L506.1000, L501.9520, L503.6075, L500.4050, L503.6550, L506.0400 ####[facility] [address] [place], [address] Globulin (S) [Mass/Vol] 3.7 g/dL Normal 2.2-4.2 [facility] Comment on above: Order Comment: Order Date: 12/30/23Order Info: 785-1 - CMPOrder Info: 3 - TSHOrder Info: 7 - TIBCOrder Info: 2497-07 - FEOrder Info: 2275-4 - FEROrder Info: 3023-7 - T4F Performed By: #### L 503.6150, L506.1000, L501.9520, L503.6075, L500.4050, L503.6550, L506.0400 ####[facility] [address] [place], [address] Glucose [Mass/Vol] 122 mg/dL High 74-106 [facility] Comment on above: Order Comment: Order Date: 12/30/23Order Info: 0786-1 - CMPOrder Info: 3 - TSHOrder Info: 7 - TIBCOrder Info: 2497- - FEOrder Info: 227-4 - FEROrder Info: 3024-7 - T4F Result Comment: Fast ing Glucose result from 100 to 125 mg/dL suggests IMPAIRED HOMEOSTASIS per A.D.A. criteria. Performed By: #### L 503.6150, L506.1000, L501.9520, L503.6075, L500.4050, L503.6550, L506.0400 ####[facility] [address] [place], [address] Potassium [Moles/Vol] 3.7 mmol/L Normal 3.5-5.1 [facility] Comment on above: Order Comment: Order Date: 12/30/23Order Info: 0786-1 - CMPOrder Info: 6-3 - TSHOrder Info: 2499-7 - TIBCOrder Info: 249-4 - FEOrder Info: 227-4 - FEROrder Info: 3024-7 - T4F Performed By: #### L 503.6150, L506.1000, L501.9520, L503.6075, L500.4050, L503.6550, L506.0400 ####[facility] [address] [place], [address] Sodium [Moles/Vol] 137 mmol/L Normal 136-145 [facility] Comment on above: Order Comment: Order Date: 12/30/23Order Info: 86-1 - CMPOrder Info: 3015-3 - TSHOrder Info: 2499-10 - TIBCOrder Info: 249-4 - FEOrder Info: 227-4 - FEROrder Info: 3024-7 - T4F Performed By: #### L 503.6150, L506.1000, L501.9520, L503.6075, L500.4050, L503.6550, L506.0400 ####[facility] [address] [place], [address] T PROT 7.2 g/dL Normal 6.4-8.2 [facility] Comment on above: Order Comment: Order Date: 12/30/23Order Info: 0786-1 - CMPOrder Info: 3016-3 - TSHOrder Info: 25007 - TIBCOrder Info: 249-4 - FEOrder Info: 227-4 - FEROrder Info: 3024-7 - T4F Performed By: #### L 503.6150, L506.1000, L501.9520, L503.6075, L500.4050, L503.6550, L506.0400 ####[facility] [address] [place], [place], [phone](476) Urea nitrogen [Mass/Vol] 14 mg/dL Normal 7-18 [facility] Comment on above: Order Comment: Order Date: 12/30/23Order Info: 0786-1 - CMPOrder Info: 3015-3 - TSHOrder Info: 2500-7 - TIBCOrder Info: 2498-4 - FEOrder Info: 227-4 - FEROrder Info: 302-7 - T4F Performed By: #### L 503.6150, L506.1000, L501.9520, L503.6075, L500.4050, L503.6550, L506.0400 ####[facility] [address] [place], [place], [phone](711) Ferritinon 12-30-2023 Ferritin [Mass/Vol] 58 ng/mL Normal 8-252 [facility] Comment on above: Order Comment: Order Date: 12/30/23Order Info: 785-1 - CMPOrder Info: 3015-3 - TSHOrder Info: 2500-7 - TIBCOrder Info: 2498-4 - FEOrder Info: 227-4 - FEROrder Info: 302-7 - T4F Performed By: #### L 503.6150, L506.1000, L501.9520, L503.6075, L500.4050, L503.6550, L506.0400 ####[facility] [address] [place], [place], [phone](138) Ironon 12-30-2023 Iron [Mass/Vol] 63 ug/dL Normal 50-170 [facility] Comment on above: Order Comment: Order Date: 12/30/23Order Info: 0786-1 - CMPOrder Info: 6-3 - TSHOrder Info: 2500-7 - TIBCOrder Info: 2498-4 - FEOrder Info: 227-4 - FEROrder Info: 3024-7 - T4F Performed By: #### L 503.6150, L506.1000, L501.9520, L503.6075, L500.4050, L503.6550, L506.0400 ####[facility] [address] [place], [place], [phone](016) Iron Binding Capacity,Totalo n 12-30-2023 TIBC 317 ug/dL Normal 250-450 [facility] Comment on above: Order Comment: Order Date: 12/30/23Order Info: 785-1 - CMPOrder Info: 3015-3 - TSHOrder Info: 2500-7 - TIBCOrder Info: 2498-4 - FEOrder Info: 2275-4 - FEROrder Info: 302-7 - T4F Performed By: #### L 503.6150, L506.1000, L501.9520, L503.6075, L500.4050, L503.6550, L506.0400 ####[facility] [address] [place], [address] T4 Free Directon 12-30-2023 T4 FREE DIRECT 1.15 ng/dL Normal 0.76-1.46 [facility] Comment on above: Order Comment: Order Date: 12/30/23Order Info: 785-1 - CMPOrder Info: 6-3 - TSHOrder Info: 2499-7 - TIBCOrder Info: 2497-4 - FEOrder Info: 4 - FEROrder Info: 7 - T4F Performed By: #### L 503.6150, L506.1000, L501.9520, L503.6075, L500.4050, L503.6550, L506.0400 ####[facility] [address] [place], [place], [phone](134) Thyroid Stim Hormone (TSH)on 12-30-2023 TSH 0.163 uIU/mL Low 0.358-3.740 [facility] Comment on above: Order Comment: Order Date: 12/30/23Order Info: 785-1 - CMPOrder Info: 3015-3 - TSHOrder Info: 2500-7 - TIBCOrder Info: 2498-4 - FEOrder Info: 2276-4 - FEROrder Info: 3024-7 - T4F Performed By: #### L 503.6150, L506.1000, L501.9520, L503.6075, L500.4050, L503.6550, L506.0400 ####[facility] [address] [place], [place], [phone] Vitamin D,25 Hydroxyon 12-29 Vitamin D 25-OH 38.3 ng/mL Normal [facility] Comment on above: Order Comment: Order Date: 12/30/23Order Info: 32240-7 - VITD25 Result Comment: Diana min D 25(OH) Status Range Deficiency <20 ng/mL (50nmol/L) Insufficiency 20 - 30 ng/mL (50 - 75 nmol/L) Sufficiency 30 - 100 ng/mL (75 - 250 nmol/L) Toxicity >100 ng/mL (>250 nmol/L) Performed By: #### L 503.6150, L506.1000, L501.9520, L503.6075, L500.4050, L503.6550, L506.0400 ####[facility] [address] [place], [phone] CARLTON w/ Reflex Mult Confirmon 12-15-2023 CARLTON,DIRECT Negative Normal Negative [facility] Comment on above: Result Comment: Perf ormed at: - [facility] [address] [id number] Bolt Sorter: Varun Jo PhD, Phone: [phone] Performed By: #### L 501.9520, L300.3900, L803.2200, L3100.5450, L800.1280, L100.0100, L506.0400, L501.9985, L3300.0700 ####[facility] [address] [place], [place], [phone] Anti-Mitochondrial ABon -1 9-2024 ANTIMITOCHON AB <20.0 Normal 0.0-20.0 [facility] Comment on above: Result Comment: Nega tive 0.0 - 20.0 Equivocal 20.1 - 24.9 Positive >24.9 Mitochondrial (M2) Antibodies are found in 90-96% of patients with primary biliary cirrhosis. Performed By: #### L 501.9520, L300.3900, L803.2200, L3100.5450, L800.1280, L100.0100, L506.0400, L501.9985, L3300.0700 ####[facility] [address] [place], [place], [phone] AFP, Tumor Markeron 12-13-19 24 AFP TUMOR CHILO 5.1 ng/mL Normal 0.0-9.2 [facility] Comment on above: Order Comment: N Result Comment: [facility] Electrochemiluminescence Immunoassay (ECLIA) Values obtained with different assay methods or kits cannot be used interchangeably. Results cannot be interpreted as absolute evidence of the presence or absence of malignant disease. This test is not interpretable in females. Performed By: #### L 501.9520, L300.3900, L803.2200, L3100.5450, L800.1280, L100.0100, L506.0400, L501.9985, L3300.0700 ####[facility] [address] [place], [address] Anti-Smooth Muscle ABSon ANTISMOOTH MUSC 11 Units Normal 0-19 [facility] Comment on above: Order Comment: N Result Comment: Nega tive 0 - 19 Weak positive 20 - 30 Moderate to strong positive >30 Actin Antibodies are found in 52-85% of patients with autoimmune hepatitis or chronic active hepatitis and in 22% of patients with primary biliary cirrhosis. Performed at: [address] [id number] Bolt Sorter: Varun Jo PhD, Phone: [phone] Performed By: #### L 501.9520, L300.3900, L803.2200, L3100.5450, L800.1280, L100.0100, L506.0400, L501.9985, L3300.0700 ####[facility] [address] [facility] [place], [place], [phone](011) CBC W/Diff, Automatedon 11-26 Absolute Lymph 1.21 X10 3/uL Normal 0.83-4.51 [facility] Comment on above: Performed By: #### L 501.9520, L300.3900, L803.2200, L3100.5450, L800.1280, L100.0100, L506.0400, L501.9985, L3300.0700 ####[facility] [address] [facility] [place], [place], [phone](995) Absolute Neut 3.5 X10 3/uL Normal 2.0-7.7 [facility] Comment on above: Performed By: #### L 501.9520, L300.3900, L803.2200, L3100.5450, L800.1280, L100.0100, L506.0400, L501.9985, L3300.0700 ####[facility] [address] [facility] [place], [place], [phone] Basophils/100 WBC (Bld) 1.6 % High 0-1 [facility] Comment on above: Performed By: #### L 501.9520, L300.3900, L803.2200, L3100.5450, L800.1280, L100.0100, L506.0400, L501.9985, L3300.0700 ####[facility] [address] [facility] [place], [address] Eosinophils/100 WBC (Bld) 4.9 % Normal 0-5 [facility] Comment on above: Performed By: #### L 501.9520, L300.3900, L803.2200, L3100.5450, L800.1280, L100.0100, L506.0400, L501.9985, L3300.0700 ####[facility] [address] [place], [place], [phone] Erythrocyte distribution width (RBC) [Ratio] 12.2 % Normal 11.6-14.6 [facility] Comment on above: Performed By: #### L 501.9520, L300.3900, L803.2200, L3100.5450, L800.1280, L100.0100, L506.0400, L501.9985, L3300.0700 ####[facility] [address] [place], [address](769) Hematocrit (Bld) [Volume fraction] 46.8 % Normal 37-47 [facility] Comment on above: Performed By: #### L 501.9520, L300.3900, L803.2200, L3100.5450, L800.1280, L100.0100, L506.0400, L501.9985, L3300.0700 ####[facility] [address] [place], [address] Hemoglobin (Bld) [Mass/Vol] 15.6 g/dL High 12.0-15.0 [facility] Comment on above: Performed By: #### L 501.9520, L300.3900, L803.2200, L3100.5450, L800.1280, L100.0100, L506.0400, L501.9985, L3300.0700 ####[facility] [address] [place], [address] IG% 0.200 Normal 0.0-0.9 [facility] Comment on above: Result Comment: IG% - Immature Granulocytes (promyelocytes, myelocytes and metamyelocytes) > 1% indicates that a LEFT SHIFT is Present. Performed By: #### L 501.9520, L300.3900, L803.2200, L3100.5450, L800.1280, L100.0100, L506.0400, L501.9985, L3300.0700 ####[facility] [address] [place], [address] Lymphocytes/100 WBC (Bld) 21.3 % Normal 19-41 [facility] Comment on above: Performed By: #### L 501.9520, L300.3900, L803.2200, L3100.5450, L800.1280, L100.0100, L506.0400, L501.9985, L3300.0700 ####[facility] [address] [place], [address] MCH (RBC) [Entitic mass] 29.9 pg Normal 27.0-32.0 [facility] Comment on above: Performed By: #### L 501.9520, L300.3900, L803.2200, L3100.5450, L800.1280, L100.0100, L506.0400, L501.9985, L3300.0700 ####[facility] [address] [place], [address] MCHC (RBC) [Mass/Vol] 33.3 g/dL Normal 32-36 [facility] Comment on above: Performed By: #### L 501.9520, L300.3900, L803.2200, L3100.5450, L800.1280, L100.0100, L506.0400, L501.9985, L3300.0700 ####[facility] [address] [place], [address] MCV (RBC) [Entitic vol] 89.7 fL Normal 81-99 [facility] Comment on above: Performed By: #### L 501.9520, L300.3900, L803.2200, L3100.5450, L800.1280, L100.0100, L506.0400, L501.9985, L3300.0700 ####[facility] [address] [place], [address] Monocytes/100 WBC (Bld) 10.1 % High 0-10 [facility] Comment on above: Performed By: #### L 501.9520, L300.3900, L803.2200, L3100.5450, L800.1280, L100.0100, L506.0400, L501.9985, L3300.0700 ####[facility] [address] [place], [address] Neutrophils/100 WBC (Bld) 61.9 % Normal 47-70 [facility] Comment on above: Performed By: #### L 501.9520, L300.3900, L803.2200, L3100.5450, L800.1280, L100.0100, L506.0400, L501.9985, L3300.0700 ####[facility] [address] [place], [address] Nucleated RBC (Bld) [#/Vol] 0 10*3/uL Normal 0-5 [facility] Comment on above: Performed By: #### L 501.9520, L300.3900, L803.2200, L3100.5450, L800.1280, L100.0100, L506.0400, L501.9985, L3300.0700 ####[facility] [address] [place], [address] Platelet mean volume (Bld) [Entitic vol] 9.4 fL Normal 6.2-12.0 [facility] Comment on above: Performed By: #### L 501.9520, L300.3900, L803.2200, L3100.5450, L800.1280, L100.0100, L506.0400, L501.9985, L3300.0700 ####[facility] [address] [place], [address] Platelets (Bld) [#/Vol] 273 10*3/uL Normal 150-450 [facility] Comment on above: Performed By: #### L 501.9520, L300.3900, L803.2200, L3100.5450, L800.1280, L100.0100, L506.0400, L501.9985, L3300.0700 ####[facility] [address] [place], [address] RBC (Bld) [#/Vol] 5.22 10*6/uL Normal 4.2-5.4 [facility] Comment on above: Performed By: #### L 501.9520, L300.3900, L803.2200, L3100.5450, L800.1280, L100.0100, L506.0400, L501.9985, L3300.0700 ####[facility] [address] [place], [address] RDW SD 40.3 fl Normal 35.1-43.9 [facility] Comment on above: Performed By: #### L 501.9520, L300.3900, L803.2200, L3100.5450, L800.1280, L100.0100, L506.0400, L501.9985, L3300.0700 ####[facility] [address] [place], [address] WBC (Bld) [#/Vol] 5.7 10*3/uL Normal 4.4-11.0 [facility] Comment on above: Performed By: #### L 501.9520, L300.3900, L803.2200, L3100.5450, L800.1280, L100.0100, L506.0400, L501.9985, L3300.0700 ####[facility] [address] [place], [place], [phone] Gastroenterology Visit Repor ton 12-12-2023 Gastroenterology Visit Report [facility] [address] [place] [address] OFFICE VISIT Date of Service: 12/12/23 MR#: [id number] Acct: [id number] Name: RACHEL MAY Rep #: [id number] 1 : 1950 Provider: Dr. Usman kaplan MD Age/Sex: 73/F Location: [facility] [place] Status: Signed Intake Vital Signs 06/27/23 08:55 10/27/23 09:23 12/12/23 07:52 Height 5 ft 2 in 5 ft 2 in 5 ft 2 in Weight: 150 lb BMI 27.4 BP 135/84 H Blood Pressure Location Rt brachial Position Sitting Pulse 60 Pulse Oximetry (%) 96 Oxygen Delivery Method room air Intake Visit Reasons: 5MFU Chief Complaint: STRATTON Allergies phenytoin (From Dilantin) Allergy (Intermediate, Verified 12/12/23 07:49) Hives trimethoprim (From Trimpex) Allergy (Intermediate, Verified 12/12/23 07:49) Hives Medications ???Medication ???Instructions ???Recorded ???Confirmed ???Type calcium carbonate (Calcium 600) 600 mg PO DAILY 10/16/21 12/12/23 History cholecalciferol (vitamin D3) 50 50 mcg PO DAILY 10/16/21 12/12/23 History mcg (2,000 unit) capsule levothyroxine 50 mcg capsule 75 mcg PO DAILY 10/16/21 12/12/23 History vitamin E 400 unit tablet 400 unit PO BID 04/30/22 12/12/23 History metformin 500 mg tablet 500 mg PO BID 90 days #180 tabs 06/27/23 12/12/23 Rx Have you fallen in the past year?: No PFSH Medical History Wears glasses Post-menopausal Thyroid disease Arthritis Back pain History of hiatal hernia Gastric reflux Non-smoker History of edema Thyroid nodule Osteopenia Vitamin D deficiency Erythrocytosis Luis Carlos's thyroiditis Surgical History Hx of colonoscopy Hx of hand surgery Hx of laminectomy Hx of hand surgery Hx of craniotomy Hx of tubal ligation Hx of dilation and curettage Family History Aunt Breast cancer Maternal Social History household members: spouse current occupational status: retired Smoking Status: Never smoker alcohol intake: never substance use type: does not use seatbelt use: always do you feel safe at home: Yes additional social history: - Bill- Retired HPI HPI Chief Complaint: STRATTON Details: RACHEL MAY, is a 73 F who presents to the office today for follow up. EGD was indicated for dysphagia. EGD revealed LA grade a reflux esophagitis, moderate Schatzki ring which Dr. Anand dilated, medium sized hiatal hernia. Biopsies of the duodenum and esophagus were benign. Colonoscopy was normal. She reports she has had no dysphagia since dilation of Schatzki ring. Lean STRATTON more than metabolic Stratton. She does not have any other comorbidities including diabetes, morbid obesity, hypercholesterolemia, hypertension. 11/2021 liver elastography: Liver stiffness measures 5.8 kPa. Being treated with vitamin E 400 IU twice daily and ursodiol 250 mg twice daily. AST and ALT normalized in April 2022. Alk phos elevated 161. GGT has been elevated. Rachel established with this clinic 12.19.21 with referral from PCP for chronically elevated LFT. Initially noted when she first saw her informatics physician, Dr. Calloway; then established with [facility] for osteoarthritis who did not feel she needed to pursue arthritic treatment. Then established with Dr. Ibarra who did not have more to recommend. FH brother also has elevated LFT with questionable elevated LFT; sister has bladder cancer and then had elevated LFT. No additional liver/fatty liver disease. Biochemical workup CBC (hgb H15.3), CMP, iron, TIBC, iron sat, transferrin, ferritin, total bilirubin, Vit D25, Free T 41.18 AST H86/ALT H125/Alk phos H179 without additional pertinent abnormality. 12/26/2021 US/Elastography Parenchyma/Organ IMPRESSION: Liver stiffness measures 5.8 kPa compatible with F2-F3 (Mild to moderate liver fibrosis) Metavir score. 05/02/21 EGD and Colonoscopy Impression: - LA Grade A reflux esophagitis. Biopsied. - Moderate Schatzki ring. Dilated. - Medium-sized hiatal hernia. - No gross lesions in the second portion of the duodenum. Biopsied. Findings: The perianal and digital rectal examinations were normal. The exam was otherwise normal throughout the examined colon. The terminal ileum appeared normal. Impression: - The examined portion of the ileum was normal. - No specimens collected. MICROSCOPIC DIAGNOSIS A. Duodenum, biopsy: Fragments of duodenal mucosa, no pathologic diagnosis. B. Distal esophagus, biopsy: Fragments of gastroesophageal mucosa with chronic inflammation. Intestinal metaplasia (goblet cell metaplasia) not identified. See comment US 11.12.22 OV 02.21.23 Pt reports d (more content not included)... Normal [facility] Hemoglobin A1con 12-12-2023 HbA1c (Bld) [Mass fraction] 5.1 % Normal 3.8-5.6 [facility] Comment on above: Result Comment: Norm al < 5.7 % Prediabetic 5.7 - 6.4 % Diabetic >or= 6.5 % Please note range changes. Performed By: #### L 501.9520, L300.3900, L803.2200, L3100.5450, L800.1280, L100.0100, L506.0400, L501.9985, L3300.0700 ####[facility] [id number] [place], [place], [id number] Prothrombin Time w/INRon INR Coag (PPP) [Relative time] 1.1 {INR} Normal [facility] Comment on above: Performed By: #### L 501.9520, L300.3900, L803.2200, L3100.5450, L800.1280, L100.0100, L506.0400, L501.9985, L3300.0700 ####[facility] [address] [place], [address] PT Coag (PPP) [Time] 14.2 s Normal 11.7-14.9 [facility] Comment on above: Performed By: #### L 501.9520, L300.3900, L803.2200, L3100.5450, L800.1280, L100.0100, L506.0400, L501.9985, L3300.0700 ####[facility] [address] [place], [address] T4 Free Directon 12-12-2023 T4 FREE DIRECT 1.27 ng/dL Normal 0.76-1.46 [facility] Comment on above: Performed By: #### L 501.9520, L300.3900, L803.2200, L3100.5450, L800.1280, L100.0100, L506.0400, L501.9985, L3300.0700 ####[facility] [address] [place], [place], [phone] Thyroid Stim Hormone (TSH)on 12-12-2023 TSH 0.638 uIU/mL Normal 0.358-3.740 [facility] Comment on above: Performed By: #### L 501.9520, L300.3900, L803.2200, L3100.5450, L800.1280, L100.0100, L506.0400, L501.9985, L3300.0700 ####[facility] [address] [place], [place], [phone] SCRN MAMM (CAD)W/CARMINA BILATo n 11-28-2023 SCRN MAMM (CAD)W/CARMINA BILAT [facility] [address], [place] [address] SCRN MAMM (CAD)W/CARMINA BILAT MR#: [id number] Acct: [id number] Name: RACHEL MAY Rep #: [id number] : 1950 F 73 From: Bandar yung MD PCP: Dr. Tyron Knight MD Status: REG CLI Study: SCRN MAMM (CAD)W/CARMINA BILAT Date of Exam: 06/21 Exam# [id number] Ordering Dr: Doris Maria NP, NP [id number] MAMMOGRAPHY - BILATERAL SCREENING REASON FOR EXAM: Female, 73 years old. Routine annual screening examination. PERTINENT HISTORY: Aunt with breast cancer. TECHNIQUE: Digital bilateral breast carmina (3D mammographic acquisition) in the CC and MLO projections. 2-D mediolateral oblique (MLO) and craniocaudad (CC) views of both breasts were obtained. CAD: Full Field Digital Mammography with Computer Added Detection was performed. COMPARISON: Comparison is made with prior study dated November 21, 2022 and November 26, 2022. FINDINGS: Breast Composition: The breasts are extremely dense, which lowers the sensitivity of mammography. There are no dominant masses or suspicious calcifications. No other significant abnormalities are identified. There has been no significant change since the prior study. BI/SCRN MAMM (CAD)W/CARMINA BILAT IMPRESSION: Stable bilateral screening mammogram. Yearly follow-up mammogram recommended. (A) ASSESSMENT CATEGORY: BIRADS Category 1: Negative. A letter regarding these results will be sent to the patient by the facility within 30 days. Approximately 10% of breast cancers are not detected by mammography. A normal mammogram should not delay biopsy of a clinically suspicious abnormality. [id number] Electronically Signed: Bandar Ponce MD at 10:11 EDT , CC: REE Maria; Dr. Tyron Knight MD Marriage Counselor: Signed Normal [facility] Absolute lymphocyte countOrd ered By: Tyron Knight on 05-01-2023 Lymphocytes Auto (Unsp spec) [#/Vol] 1.16 10*3/uL 0.83-4.51 [facility] Basophil percentageOrdered B y: Tyron Knight on 05-01-2023 Basophils/100 WBC (Bld) 1.3 % 0-1 [facility] Bilirubin [Mass/Vol] 0.50 mg/dL 0.20-1.00 [facility] Comment on above: For patients on eltr ombopag therapy, use of Dimension [place] TBIL is not recommended. Chloride [Moles/Vol] 108 mmol/L 98-107 [facility] Cholesterol [Mass/Vol] 188 mg/dL <200 [facility] Comment on above: <200 mg/dL Desirable 200-240 mg/dL Borderline >240 mg/dL High Risk Eosinophils/100 WBC (Bld) 2.8 % 0-5 [facility] Glucose [Mass/Vol] 101 mg/dL 74-106 [facility] Comment on above: Fasting Glucose resu lt from 100 to 125 mg/dL suggests IMPAIRED HOMEOSTASIS per A.D.A. criteria. Neutrophils (Bld) [#/Vol] 2.7 10*3/uL 2.0-7.7 [facility] Neutrophils/100 WBC (Bld) 58.2 % 47-70 [facility] Potassium [Moles/Vol] 4.1 mmol/L 3.5-5.1 [facility] Protein [Mass/Vol] 7.1 g/dL 6.4-8.2 [facility] Sodium [Moles/Vol] 140 mmol/L 136-145 [facility] Triglyceride [Mass/Vol] 102 mg/dL <199 [facility] Comment on above: The drugs N-Acetylcy steine and Metamizole may falsely depress this assay.Serum Triglycerides Reference Interval Normal <150 mg/dL Borderline high 150 - 199 mg/dL High 200 - 499 mg/dL Very High > or = 500 mg/dL WBC (Bld) [#/Vol] 4.6 10*3/uL 4.4-11.0 [facility] Blood erythrocytes count (nu mber/volume)Ordered By: Tyron Knight on 05-01-2023 RBC (Bld) [#/Vol] 5.24 10*6/uL 4.2-5.4 [facility] Blood hemoglobin measurement (mass/volume)Ordered By: Tyron Knight on 05-01-2023 Hemoglobin (Bld) [Mass/Vol] 15.5 g/dL 12.0-15.0 [facility] Blood lymphocytes/100 leukoc ytesOrdered By: Tyron Knight on 05-01-2023 Lymphocytes/100 WBC (Bld) 25.0 % 19-41 [facility] Blood monocytes/100 leukocyt esOrdered By: Tyron Knight on 05-01-2023 Monocytes/100 WBC (Bld) 12.5 % 0-10 [facility] Blood platelet mean volumeOr dered By: Tyron Knight on 05-01-2023 Platelet mean volume (Bld) [Entitic vol] 10.4 fL 6.2-12.0 [facility] Determination of erythrocyte mean corpuscular volume (MCV)Ordered By: Tyron Knight on 05-01-2023 MCV (RBC) [Entitic vol] 90.6 fL 81-99 [facility] Hematocrit Auto (Bld) [Volum e fraction]Ordered By: Tyron Knight on 05-01-2023 Hematocrit (Bld) [Volume fraction] 47.5 % 37-47 [facility] Laboratory - Chemistry and C hemistry - challengeOrdered By: Tyron Knight on 05-01-2023 ALP [Catalytic activity/Vol] 126 U/L 45-117 [facility] ALT [Catalytic activity/Vol] 88 U/L 13-56 [facility] CO2 [Moles/Vol] 28.0 mmol/L 21.0-32.0 [facility] Free T4 [Mass/Vol] 0.94 ng/dL 0.76-1.46 [facility] Globulin (S) [Mass/Vol] 3.8 g/dL 2.2-4.2 [facility] Urea nitrogen/Creatinine [Mass ratio] 19.6 mg/mg 10-20 [facility] Laboratory - Hematology and Cell countsOrdered By: Tyron Knight on 05-01-2023 Erythrocyte distribution width (RBC) [Entitic vol] 42.4 fL 35.1-43.9 [facility] Erythrocyte distribution width (RBC) [Ratio] 12.8 % 11.6-14.6 [facility] Immature granulocytes/100 WBC (Bld) 0.200 % 0.0-0.9 [facility] Comment on above: IG% - Immature Granu locytes (promyelocytes, myelocytes and metamyelocytes) > 1% indicates that a LEFT SHIFT is Present. MCH (RBC) [Entitic mass] 29.6 pg 27.0-32.0 [facility] Nucleated RBC/100 WBC (Bld) [Ratio] 0 % 0-5 [facility] MCHC Auto (RBC) [Mass/Vol]Or dered By: Tyron Knight on 05-01-2023 MCHC (RBC) [Mass/Vol] 32.6 g/dL 32-36 [facility] No Panel InformationOrdered By: Tyron Knight on 05-01-2023 Estimated GFR (MDRD) Amer 89 mL/min >60 [facility] Comment on above: GFR Calc Estimated GFR (MDRD) Non-Af Amer 74 mL/min >60 [facility] Comment on above: Non- GFR Calc Thyroid Stimulating Hormone (TSH) 1.12 uIU/mL 0.358-3.74 [facility] Vitamin D 25-Hydroxy 39.2 ng/mL [facility] Comment on above: Vitamin D 25(OH) Sta tus Range Deficiency <20 ng/mL (50nmol/L) Insufficiency 20 - 30 ng/mL (50 - 75 nmol/L) Sufficiency 30 - 100 ng/mL (75 - 250 nmol/L) Toxicity >100 ng/mL (>250 nmol/L) Platelets bldOrdered By: José Miguel Knight on 05-01-2023 Platelets (Bld) [#/Vol] 272 10*3/uL 150-450 [facility] Serum or plasma albumin negra urement (mass/volume)Ordered By: Tyron Knight on 05-01-2023 Albumin [Mass/Vol] 3.3 g/dL 3.2-5.0 [facility] Serum or plasma albumin/glob ulin mass ratioOrdered By: Tyron Knight on 05-01-2023 Albumin/Globulin [Mass ratio] 0.9 {ratio} 0.9-2.4 [facility] Serum or plasma calcium negra urement (mass/volume)Ordered By: Tyron Knight on 05-01-2023 Calcium [Mass/Vol] 8.6 mg/dL 8.5-10.1 [facility] Serum or plasma cholesterol in HDL measurement (mass/volume)Ordered By: Tyron Knight on 05-01-2023 Cholesterol in HDL [Mass/Vol] 56 mg/dL >40 [facility] Comment on above: The drugs N-Acetylcy steine and Metamizole may falsely depress this assay. Reference Range HDL <40 mg/dL Low HDL Cholesterol HDL >or= 60 mg/dL High HDL Cholesterol Serum or plasma cholesterol in VLDL measurement (mass/volume)Ordered By: Tyron Knight on 05-01-2023 Cholesterol in VLDL [Mass/Vol] 20 mg/dL 5-40 [facility] Serum or plasma creatinine m easurement (mass/volume)Ordered By: Tyron Knight on 05-01-2023 Creatinine [Mass/Vol] 0.82 mg/dL 0.55-1.02 [facility] Comment on above: The validity of the calculated GFR & GFRAA in patients over 70 years has not been determined. Clinical correlation is essential. Serum or plasma low density lipoprotein (LDL) cholesterol measurement (mass/volume)Ordered By: Tyron Knight on 05-01-2023 Cholesterol in LDL [Mass/Vol] 112 mg/dL 0-130 [facility] Serum or plasma urea nitroge n measurement (mass/volume)Ordered By: Tyron Knight on 05-01-2023 Urea nitrogen [Mass/Vol] 16 mg/dL 7-18 [facility] Thin prep Papanicolaou smear with manual screeningOrdered By: Tyron Knight on 05-01-2023 Thin prep Papanicolaou smear with manual screening 62 U/L 15-37 [facility] Thin prep Papanicolaou smear with manual screening 4 5-15 [facility] Absolute lymphocyte countOrd ered By: Tyron Knight on 11-07-2022 Lymphocytes Auto (Unsp spec) [#/Vol] 1.47 10*3/uL 0.83-4.51 [facility] Basophil percentageOrdered B y: Tyron Knight on 11-07-2022 Basophils/100 WBC (Bld) 1.3 % 0-1 [facility] Bilirubin [Mass/Vol] 0.50 mg/dL 0.20-1.00 [facility] Comment on above: For patients on eltr ombopag therapy, use of Dimension [place] TBIL is not recommended. Chloride [Moles/Vol] 106 mmol/L 98-107 [facility] Cholesterol [Mass/Vol] 165 mg/dL <200 [facility] Comment on above: <200 mg/dL Desirable 200-240 mg/dL Borderline >240 mg/dL High Risk Eosinophils/100 WBC (Bld) 4.3 % 0-5 [facility] Glucose [Mass/Vol] 92 mg/dL 74-106 [facility] Neutrophils (Bld) [#/Vol] 2.9 10*3/uL 2.0-7.7 [facility] Neutrophils/100 WBC (Bld) 55.6 % 47-70 [facility] Potassium [Moles/Vol] 3.8 mmol/L 3.5-5.1 [facility] Protein [Mass/Vol] 7.2 g/dL 6.4-8.2 [facility] Sodium [Moles/Vol] 140 mmol/L 136-145 [facility] Triglyceride [Mass/Vol] 85 mg/dL <199 [facility] Comment on above: The drugs N-Acetylcy steine and Metamizole may falsely depress this assay.Serum Triglycerides Reference Interval Normal <150 mg/dL Borderline high 150 - 199 mg/dL High 200 - 499 mg/dL Very High > or = 500 mg/dL WBC (Bld) [#/Vol] 5.3 10*3/uL 4.4-11.0 [facility] Blood erythrocytes count (nu mber/volume)Ordered By: Tyron Knight on 11-07-2022 RBC (Bld) [#/Vol] 5.08 10*6/uL 4.2-5.4 [facility] Blood hemoglobin measurement (mass/volume)Ordered By: Tyron Knight on 11-07-2022 Hemoglobin (Bld) [Mass/Vol] 15.2 g/dL 12.0-15.0 [facility] Blood lymphocytes/100 leukoc ytesOrdered By: Tyron Knight on 11-07-2022 Lymphocytes/100 WBC (Bld) 27.8 % 19-41 [facility] Blood monocytes/100 leukocyt esOrdered By: Tyron Knight on 11-07-2022 Monocytes/100 WBC (Bld) 10.8 % 0-10 [facility] Blood platelet mean volumeOr dered By: Tyron Knight on 11-07-2022 Platelet mean volume (Bld) [Entitic vol] 10.4 fL 6.2-12.0 [facility] Determination of erythrocyte mean corpuscular volume (MCV)Ordered By: Tyron Knight on 11-07-2022 MCV (RBC) [Entitic vol] 91.5 fL 81-99 [facility] Hematocrit Auto (Bld) [Volum e fraction]Ordered By: Tyron Knight on 11-07-2022 Hematocrit (Bld) [Volume fraction] 46.5 % 37-47 [facility] Laboratory - Chemistry and C hemistry - challengeOrdered By: Tyron Knight on 11-07-2022 ALP [Catalytic activity/Vol] 115 U/L 45-117 [facility] ALT [Catalytic activity/Vol] 29 U/L 13-56 [facility] CO2 [Moles/Vol] 29.0 mmol/L 21.0-32.0 [facility] Free T4 [Mass/Vol] 1.31 ng/dL 0.76-1.46 [facility] Globulin (S) [Mass/Vol] 3.8 g/dL 2.2-4.2 [facility] Urea nitrogen/Creatinine [Mass ratio] 17.2 mg/mg 10-20 [facility] Laboratory - Hematology and Cell countsOrdered By: Tyron Knight on 11-07-2022 Erythrocyte distribution width (RBC) [Entitic vol] 41.8 fL 35.1-43.9 [facility] Erythrocyte distribution width (RBC) [Ratio] 12.5 % 11.6-14.6 [facility] Immature granulocytes/100 WBC (Bld) 0.200 % 0.0-0.9 [facility] Comment on above: IG% - Immature Granu locytes (promyelocytes, myelocytes and metamyelocytes) > 1% indicates that a LEFT SHIFT is Present. MCH (RBC) [Entitic mass] 29.9 pg 27.0-32.0 [facility] Nucleated RBC/100 W[facility] (Bld) [[facility]] 0 [facility] [Mass/Vol]Or dered By: Tyron Knight on 11-07-2022 MCHC (RBC) [Mass/Vol] 32.7 g/dL 32-36 [facility] No Panel InformationOrdered By: Tyron Knight on 11-07-2022 Estimated GFR (MDRD) Amer 89 mL/min >60 [facility] Comment on above: GFR Calc Estimated GFR (MDRD) Non-Af Amer 74 mL/min >60 [facility] Comment on above: Non- GFR Calc Thyroid Stimulating Hormone (TSH) 0.32 uIU/mL 0.358-3.74 [facility] Vitamin D 25-Hydroxy 51.1 ng/mL [facility] Comment on above: Vitamin D 25(OH) Sta tus Range Deficiency <20 ng/mL (50nmol/L) Insufficiency 20 - 30 ng/mL (50 - 75 nmol/L) Sufficiency 30 - 100 ng/mL (75 - 250 nmol/L) Toxicity >100 ng/mL (>250 nmol/L) Platelets bldOrdered By: José Miguel Knight on 11-07-2022 Platelets (Bld) [#/Vol] 260 10*3/uL 150-450 [facility] Serum or plasma albumin negra urement (mass/volume)Ordered By: Tyron Knight on 11-07-2022 Albumin [Mass/Vol] 3.4 g/dL 3.2-5.0 [facility] Serum or plasma albumin/glob ulin mass ratioOrdered By: Tyron Knight on 11-07-2022 Albumin/Globulin [Mass ratio] 0.9 {ratio} 0.9-2.4 [facility] Serum or plasma calcium negra urement (mass/volume)Ordered By: Tyron Knight on 11-07-2022 Calcium [Mass/Vol] 8.7 mg/dL 8.5-10.1 [facility] Serum or plasma cholesterol in HDL measurement (mass/volume)Ordered By: Tyron Knight on 11-07-2022 Cholesterol in HDL [Mass/Vol] 53 mg/dL >40 [facility] Comment on above: The drugs N-Acetylcy steine and Metamizole may falsely depress this assay. Reference Range HDL <40 mg/dL Low HDL Cholesterol HDL >or= 60 mg/dL High HDL Cholesterol Serum or plasma cholesterol in VLDL measurement (mass/volume)Ordered By: Tyron Knight on 11-07-2022 Cholesterol in VLDL [Mass/Vol] 17 mg/dL 5-40 [facility] Serum or plasma creatinine m easurement (mass/volume)Ordered By: Tyron Knight on 11-07-2022 Creatinine [Mass/Vol] 0.81 mg/dL 0.55-1.02 [facility] Comment on above: The validity of the calculated GFR & GFRAA in patients over 70 years has not been determined. Clinical correlation is essential. Serum or plasma low density lipoprotein (LDL) cholesterol measurement (mass/volume)Ordered By: Tyron Knight on 11-07-2022 Cholesterol in LDL [Mass/Vol] 95 mg/dL 0-130 [facility] Serum or plasma urea nitroge n measurement (mass/volume)Ordered By: Tyron Knight on 11-07-2022 Urea nitrogen [Mass/Vol] 14 mg/dL 7-18 [facility] Thin prep Papanicolaou smear with manual screeningOrdered By: Tyron Knight on 11-07-2022 Thin prep Papanicolaou smear with manual screening 23 U/L 15-37 [facility] Thin prep Papanicolaou smear with manual screening 5 5-15 [facility] Absolute lymphocyte countOrd ered By: Dr. Knight on 05-10-2022 Lymphocytes Auto (Unsp spec) [#/Vol] 1.24 10*3/uL 0.83-4.51 [facility] Basophil percentageOrdered B y: Dr. Knight on 05-10-2022 Basophils/100 WBC (Bld) 1.0 % 0-1 [facility] Bilirubin [Mass/Vol] 0.50 mg/dL 0.20-1.00 [facility] Comment on above: For patients on eltr ombopag therapy, use of Dimension [place] TBIL is not recommended. Chloride [Moles/Vol] 103 mmol/L 98-107 [facility] Eosinophils/100 WBC (Bld) 2.3 % 0-5 [facility] Glucose [Mass/Vol] 90 mg/dL 74-106 [facility] Neutrophils (Bld) [#/Vol] 3.1 10*3/uL 2.0-7.7 [facility] Neutrophils/100 WBC (Bld) 58.1 % 47-70 [facility] Potassium [Moles/Vol] 4.0 mmol/L 3.5-5.1 [facility] Protein [Mass/Vol] 7.3 g/dL 6.4-8.2 [facility] Sodium [Moles/Vol] 141 mmol/L 136-145 [facility] WBC (Bld) [#/Vol] 5.3 10*3/uL 4.4-11.0 [facility] Blood erythrocytes count (nu mber/volume)Ordered By: Dr. Knight on 05-10-2022 RBC (Bld) [#/Vol] 5.41 10*6/uL 4.2-5.4 [facility] Blood hemoglobin measurement (mass/volume)Ordered By: Dr. Knight on 05-10-2022 Hemoglobin (Bld) [Mass/Vol] 16.2 g/dL 12.0-15.0 [facility] Blood lymphocytes/100 leukoc ytesOrdered By: Dr. Knight on 05-10-2022 Lymphocytes/100 WBC (Bld) 23.6 % 19-41 [facility] Blood monocytes/100 leukocyt esOrdered By: Dr. Knight on 05-10-2022 Monocytes/100 WBC (Bld) 14.6 % 0-10 [facility] Blood platelet mean volumeOr dered By: Dr. Knight on 05-10-2022 Platelet mean volume (Bld) [Entitic vol] 10.1 fL 6.2-12.0 [facility] Determination of erythrocyte mean corpuscular volume (MCV)Ordered By: Dr. Knight on 05-10-2022 MCV (RBC) [Entitic vol] 90.9 fL 81-99 [facility] Hematocrit Auto (Bld) [Volum e fraction]Ordered By: Dr. Knight on 05-10-2022 Hematocrit (Bld) [Volume fraction] 49.2 % 37-47 [facility] Laboratory - Chemistry and C hemistry - challengeOrdered By: Dr. Knight on 05-10-2022 ALP [Catalytic activity/Vol] 161 U/L 45-117 [facility] ALT [Catalytic activity/Vol] 40 U/L 13-56 [facility] CO2 [Moles/Vol] 29.0 mmol/L 21.0-32.0 [facility] Free T4 [Mass/Vol] 1.05 ng/dL 0.76-1.46 [facility] Globulin (S) [Mass/Vol] 3.7 g/dL 2.2-4.2 [facility] Urea nitrogen/Creatinine [Mass ratio] 14.7 mg/mg 10-20 [facility] Laboratory - Hematology and Cell countsOrdered By: Dr. Knight on 05-10-2022 Erythrocyte distribution width (RBC) [Entitic vol] 42.0 fL 35.1-43.9 [facility] Erythrocyte distribution width (RBC) [Ratio] 12.7 % 11.6-14.6 [facility] Immature granulocytes/100 WBC (Bld) 0.400 % 0.0-0.9 [facility] Comment on above: IG% - Immature Granu locytes (promyelocytes, myelocytes and metamyelocytes) > 1% indicates that a LEFT SHIFT is Present. MCH (RBC) [Entitic mass] 29.9 pg 27.0-32.0 [facility] Nucleated RBC/100 WBC (Bld) [Ratio] 0 % 0-5 [facility] MCHC Auto (RBC) [Mass/Vol]Or dered By: Dr. Knight on 05-10-2022 MCHC (RBC) [Mass/Vol] 32.9 g/dL 32-36 [facility] No Panel InformationOrdered By: Dr. Knight on 05-10-2022 Estimated GFR (MDRD) Amer 75 mL/min >60 [facility] Comment on above: GFR Calc Estimated GFR (MDRD) Non-Af Amer 62 mL/min >60 [facility] Comment on above: Non- GFR Calc Thyroid Stimulating Hormone (TSH) 1.47 uIU/mL 0.358-3.74 [facility] Vitamin D 25-Hydroxy 37.6 ng/mL [facility] Comment on above: Vitamin D 25(OH) Sta tus Range Deficiency <20 ng/mL (50nmol/L) Insufficiency 20 - 30 ng/mL (50 - 75 nmol/L) Sufficiency 30 - 100 ng/mL (75 - 250 nmol/L) Toxicity >100 ng/mL (>250 nmol/L) Platelets bldOrdered By: Dr. Knight on 05-10-2022 Platelets (Bld) [#/Vol] 316 10*3/uL 150-450 [facility] Serum or plasma albumin negra urement (mass/volume)Ordered By: Dr. Knight on 05-10-2022 Albumin [Mass/Vol] 3.6 g/dL 3.2-5.0 [facility] Serum or plasma albumin/glob ulin mass ratioOrdered By: Dr. Knight on 05-10-2022 Albumin/Globulin [Mass ratio] 1.0 {ratio} 0.9-2.4 [facility] Serum or plasma calcium negra urement (mass/volume)Ordered By: Dr. Knight on 05-10-2022 Calcium [Mass/Vol] 9.3 mg/dL 8.5-10.1 [facility] Serum or plasma creatinine m easurement (mass/volume)Ordered By: Dr. Knight on 05-10-2022 Creatinine [Mass/Vol] 0.95 mg/dL 0.55-1.02 [facility] Comment on above: The validity of the calculated GFR & GFRAA in patients over 70 years has not been determined. Clinical correlation is essential. Serum or plasma urea nitroge n measurement (mass/volume)Ordered By: Dr. Knight on 05-10-2022 Urea nitrogen [Mass/Vol] 14 mg/dL 7-18 [facility] Thin prep Papanicolaou smear with manual screeningOrdered By: Dr. Knight on 05-10-2022 Thin prep Papanicolaou smear with manual screening 22 U/L 15-37 [facility] Thin prep Papanicolaou smear with manual screening 9 5-15 [facility] Absolute lymphocyte countOrd ered By: Dr. Knight on 01-29-2022 Lymphocytes Auto (Unsp spec) [#/Vol] 1.54 10*3/uL 0.83-4.51 [facility] Basophil percentageOrdered B y: Dr. Knight on 01-29-2022 Basophils/100 WBC (Bld) 0.9 % 0-1 [facility] Bilirubin [Mass/Vol] 0.30 mg/dL 0.20-1.00 [facility] Comment on above: For patients on eltr ombopag therapy, use of Dimension [place] TBIL is not recommended. Chloride [Moles/Vol] 106 mmol/L 98-107 [facility] Cholesterol [Mass/Vol] 206 mg/dL <200 [facility] Comment on above: <200 mg/dL Desirable 200-240 mg/dL Borderline >240 mg/dL High Risk Eosinophils/100 WBC (Bld) 2.5 % 0-5 [facility] Glucose [Mass/Vol] 93 mg/dL 74-106 [facility] Neutrophils (Bld) [#/Vol] 5.1 10*3/uL 2.0-7.7 [facility] Neutrophils/100 WBC (Bld) 67.9 % 47-70 [facility] Potassium [Moles/Vol] 4.0 mmol/L 3.5-5.1 [facility] Protein [Mass/Vol] 7.9 g/dL 6.4-8.2 [facility] Sodium [Moles/Vol] 140 mmol/L 136-145 [facility] Triglyceride [Mass/Vol] 83 mg/dL <199 [facility] Comment on above: The drugs N-Acetylcy steine and Metamizole may falsely depress this assay.Serum Triglycerides Reference Interval Normal <150 mg/dL Borderline high 150 - 199 mg/dL High 200 - 499 mg/dL Very High > or = 500 mg/dL WBC (Bld) [#/Vol] 7.5 10*3/uL 4.4-11.0 [facility] Blood erythrocytes count (nu mber/volume)Ordered By: Dr. Knight on 01-29-2022 RBC (Bld) [#/Vol] 5.34 10*6/uL 4.2-5.4 [facility] Blood hemoglobin measurement (mass/volume)Ordered By: Dr. Knight on 01-29-2022 Hemoglobin (Bld) [Mass/Vol] 16.3 g/dL 12.0-15.0 [facility] Blood lymphocytes/100 leukoc ytesOrdered By: Dr. Knight on 01-29-2022 Lymphocytes/100 WBC (Bld) 20.5 % 19-41 [facility] Blood monocytes/100 leukocyt esOrdered By: Dr. Knight on 01-29-2022 Monocytes/100 WBC (Bld) 7.9 % 0-10 [facility] Blood platelet mean volumeOr dered By: Dr. Knight on 01-29-2022 Platelet mean volume (Bld) [Entitic vol] 9.9 fL 6.2-12.0 [facility] Determination of erythrocyte mean corpuscular volume (MCV)Ordered By: Dr. Knight on 01-29-2022 MCV (RBC) [Entitic vol] 90.4 fL 81-99 [facility] Hematocrit Auto (Bld) [Volum e fraction]Ordered By: Dr. Knight on 01-29-2022 Hematocrit (Bld) [Volume fraction] 48.3 % 37-47 [facility] Laboratory - Chemistry and C hemistry - challengeOrdered By: Dr. Knight on 01-29-2022 ALP [Catalytic activity/Vol] 163 U/L 45-117 [facility] ALT [Catalytic activity/Vol] 95 U/L 13-56 [facility] CO2 [Moles/Vol] 28.0 mmol/L 21.0-32.0 [facility] Free T4 [Mass/Vol] 0.77 ng/dL 0.76-1.46 [facility] Globulin (S) [Mass/Vol] 4.5 g/dL 2.2-4.2 [facility] Transferrin [Mass/Vol] 255 mg/dL 192-364 [facility] Comment on above: Performed at: [address] [id number] Director: Varun Jo PhD, Phone: [phone] Urea nitrogen/Creatinine [Mass ratio] 18.0 mg/mg 10-20 [facility] Laboratory - Hematology and Cell countsOrdered By: Dr. Knight on 01-29-2022 Erythrocyte distribution width (RBC) [Entitic vol] 43.3 fL 35.1-43.9 [facility] Erythrocyte distribution width (RBC) [Ratio] 13.1 % 11.6-14.6 [facility] Immature granulocytes/100 WBC (Bld) 0.300 % 0.0-0.9 [facility] Comment on above: IG% - Immature Granu locytes (promyelocytes, myelocytes and metamyelocytes) > 1% indicates that a LEFT SHIFT is Present. MCH (RBC) [Entitic mass] 30.5 pg 27.0-32.0 [facility] Nucleated RBC/100 WBC (Bld) [Ratio] 0 % 0-5 [facility] MCHC Auto (RBC) [Mass/Vol]Or dered By: Dr. Knight on 01-29-2022 MCHC (RBC) [Mass/Vol] 33.7 g/dL 32-36 [facility] No Panel InformationOrdered By: Dr. Knight on 01-29-2022 Estimated GFR (MDRD) Amer 81 mL/min >60 [facility] Comment on above: GFR Calc Estimated GFR (MDRD) Non-Af Amer 67 mL/min >60 [facility] Comment on above: Non- GFR Calc Thyroid Stimulating Hormone (TSH) 4.10 uIU/mL 0.358-3.74 [facility] Total Iron Binding Capacity 307 ug/dL 250-450 [facility] Vitamin D 25-Hydroxy 37.7 ng/mL [facility] Comment on above: Vitamin D 25(OH) Sta tus Range Deficiency <20 ng/mL (50nmol/L) Insufficiency 20 - 30 ng/mL (50 - 75 nmol/L) Sufficiency 30 - 100 ng/mL (75 - 250 nmol/L) Toxicity >100 ng/mL (>250 nmol/L) Platelets bldOrdered By: Dr. Knight on 01-29-2022 Platelets (Bld) [#/Vol] 316 10*3/uL 150-450 [facility] Serum or plasma albumin negra urement (mass/volume)Ordered By: Dr. Knight on 01-29-2022 Albumin [Mass/Vol] 3.4 g/dL 3.2-5.0 [facility] Serum or plasma albumin/glob ulin mass ratioOrdered By: Dr. Knight on 01-29-2022 Albumin/Globulin [Mass ratio] 0.8 {ratio} 0.9-2.4 [facility] Serum or plasma calcium negra urement (mass/volume)Ordered By: Dr. Knight on 01-29-2022 Calcium [Mass/Vol] 9.0 mg/dL 8.5-10.1 [facility] Serum or plasma cholesterol in HDL measurement (mass/volume)Ordered By: Dr. Knight on 01-29-2022 Cholesterol in HDL [Mass/Vol] 60 mg/dL >40 [facility] Comment on above: The drugs N-Acetylcy steine and Metamizole may falsely depress this assay. Reference Range HDL <40 mg/dL Low HDL Cholesterol HDL >or= 60 mg/dL High HDL Cholesterol Serum or plasma cholesterol in VLDL measurement (mass/volume)Ordered By: Dr. Knight on 01-29-2022 Cholesterol in VLDL [Mass/Vol] 17 mg/dL 5-40 [facility] Serum or plasma creatinine m easurement (mass/volume)Ordered By: Dr. Knight on 01-29-2022 Creatinine [Mass/Vol] 0.89 mg/dL 0.55-1.02 [facility] Comment on above: The validity of the calculated GFR & GFRAA in patients over 70 years has not been determined. Clinical correlation is essential. Serum or plasma ferritin rajesh surement (mass/volume)Ordered By: Dr. Knight on 01-29-2022 Ferritin [Mass/Vol] 70 ng/mL 8-252 [facility] Serum or plasma low density lipoprotein (LDL) cholesterol measurement (mass/volume)Ordered By: Dr. Knight on 01-29-2022 Cholesterol in LDL [Mass/Vol] 129 mg/dL 0-130 [facility] Serum or plasma urea nitroge n measurement (mass/volume)Ordered By: Dr. Knight on 01-29-2022 Urea nitrogen [Mass/Vol] 16 mg/dL 7-18 [facility] Thin prep Papanicolaou smear with manual screeningOrdered By: Dr. Knight on 01-29-2022 Thin prep Papanicolaou smear with manual screening 59 U/L 15-37 [facility] Thin prep Papanicolaou smear with manual screening 6 5-15 [facility] Absolute lymphocyte counton 12-19-2021 Lymphocytes Auto (Unsp spec) [#/Vol] 2.04 10*3/uL 0.83-4.51 [facility] Work Phone: Aldolase ser/plason 12-20-19 22 Aldolase [Catalytic activity/Vol] 7.9 mU/mL 3.3-10.3 [facility] Work Phone: Comment on above: Performed at: - [address] [id number] Director: Varun Jo PhD, Phone: [phone] at: [facility] [address] [id number] Director: Kiko Dent MD, Phone: [phone] Atypical perinuclear antineu trophil cytoplasmic antibodies measurementon 12-19-2021 Neutrophil cytoplasmic Ab.perinuclear.atypica l IF (S) [Titer] <1:20 titer Neg:<1:20 [facility] Work Phone: Comment on above: The atypical pANCA p attern has been observed in asignificant percentage of patients with ulcerative colitis,primary sclerosing cholangitis and autoimmune hepatitis. Basophil percentageon 2021 Basophil percentage < 10.0 umol/L 11-32 [facility] Work Phone: Basophil percentage < 0.2 AI 0.0-0.9 [facility] Work Phone: Basophils/100 WBC (Bld) 1.0 % 0-1 [facility] Work Phone: [phone] Bilirubin [Mass/Vol] 0.40 mg/dL 0.20-1.00 [facility] Work Phone: Comment on above: For patients on eltr ombopag therapy, use of Dimension [place] TBIL is not recommended. Chloride [Moles/Vol] 103 mmol/L 98-107 [facility] Work Phone: Eosinophils/100 WBC (Bld) 2.1 % 0-5 [facility] Work Phone: Glucose [Mass/Vol] 78 mg/dL 74-106 [facility] Work Phone: [phone] Neutrophils (Bld) [#/Vol] 4.4 10*3/uL 2.0-7.7 [facility] Work Phone: Neutrophils/100 WBC (Bld) 61.1 % 47-70 [facility] Work Phone: Potassium [Moles/Vol] 4.0 mmol/L 3.5-5.1 [facility] Work Phone: Protein [Mass/Vol] 7.9 g/dL 6.4-8.2 [facility] Work Phone: Sodium [Moles/Vol] 139 mmol/L 136-145 [facility] Work Phone: WBC (Bld) [#/Vol] 7.2 10*3/uL 4.4-11.0 [facility] Work Phone: Blood erythrocytes count (nu mber/volume)on 12-19-2021 RBC (Bld) [#/Vol] 5.61 10*6/uL 4.2-5.4 [facility] Work Phone: [phone] Blood hemoglobin measurement (mass/volume)on 12-19-2021 Hemoglobin (Bld) [Mass/Vol] 16.6 g/dL 12.0-15.0 [facility] Work Phone: [phone] Blood lymphocytes/100 leukoc yteson 12-19-2021 Lymphocytes/100 WBC (Bld) 28.2 % 19-41 [facility] Work Phone: [phone] Blood monocytes/100 leukocyt eson 12-19-2021 Monocytes/100 WBC (Bld) 7.5 % 0-10 [facility] Work Phone: [phone] Blood platelet mean volumeon 12-19-2021 Platelet mean volume (Bld) [Entitic vol] 10.4 fL 6.2-12.0 [facility] Work Phone: Determination of erythrocyte mean corpuscular volume (MCV)on 12-19-2021 MCV (RBC) [Entitic vol] 88.4 fL 81-99 [facility] Work Phone: Erythrocyte sedimentation ra oli 12-19-2021 ESR (Bld) [Velocity] 19 mm/h 0-30 [facility] Work Phone: Hematocrit Auto (Bld) [Volum e fraction]on 12-19-2021 Hematocrit (Bld) [Volume fraction] 49.6 % 37-47 [facility] Work Phone: INR in Blood by Coagulation assayon 12-19-2021 INR Coag (Bld) [Relative time] 1.0 {INR} [facility] Work Phone: Laboratory - Chemistry and C hemistry - challengeon 12-19-2021 ALP [Catalytic activity/Vol] 157 U/L 45-117 [facility] Work Phone: ALT [Catalytic activity/Vol] 77 U/L 13-56 [facility] Work Phone: Amylase [Catalytic activity/Vol] 214 U/L 5-55 [facility] Work Phone: CK [Catalytic activity/Vol] 101 U/L 26-192 [facility] Work Phone: CO2 [Moles/Vol] 30.0 mmol/L 21.0-32.0 [facility] Work Phone: Globulin (S) [Mass/Vol] 4.1 g/dL 2.2-4.2 [facility] Work Phone: Urea nitrogen/Creatinine [Mass ratio] 15.8 mg/mg 10-20 [facility] Work Phone: Laboratory - Coagulationon 0 12-19-2021 PT Coag (PPP) [Time] 12.7 s 11.7-14.9 [facility] Work Phone: Laboratory - Hematology and Cell countson 12-19-2021 Erythrocyte distribution width (RBC) [Entitic vol] 40.4 fL 35.1-43.9 [facility] Work Phone: Erythrocyte distribution width (RBC) [Ratio] 12.4 % 11.6-14.6 [facility] Work Phone: Immature granulocytes/100 WBC (Bld) 0.100 % 0.0-0.9 [facility] Work Phone: Comment on above: IG% - Immature Granu locytes (promyelocytes, myelocytes and metamyelocytes) > 1% indicates that a LEFT SHIFT is Present. MCH (RBC) [Entitic mass] 29.6 pg 27.0-32.0 [facility] Work Phone: Nucleated RBC/100 WBC (Bld) [Ratio] 0 % 0-5 [facility] Work Phone: MCHC Auto (RBC) [Mass/Vol]on 12-19-2021 MCHC (RBC) [Mass/Vol] 33.5 g/dL 32-36 [facility] Work Phone: No Panel Informationon 12-19 Centromere B Antibody <0.2 AI 0.0-0.9 [facility] Work Phone: Ceruloplasmin 27.6 mg/dL 19.0-39.0 [facility] Work Phone: Estimated GFR (MDRD) Amer 89 mL/min >60 [facility] Work Phone: Comment on above: GFR Calc Estimated GFR (MDRD) Non-Af Amer 73 mL/min >60 [facility] Work Phone: Comment on above: Non- GFR Calc Haptoglobin 88 mg/dL 37-355 [facility] Work Phone: [employer] ENG[employer]ER Antibody 0.2 AI 0.0-0.9 [facility] Work Phone: Vitamin D 25-Hydroxy 44.8 ng/mL [facility] Work Phone: Comment on above: Vitamin D 25(OH) Sta tus Range Deficiency <20 ng/mL (50nmol/L) Insufficiency 20 - 30 ng/mL (50 - 75 nmol/L) Sufficiency 30 - 100 ng/mL (75 - 250 nmol/L) Toxicity >100 ng/mL (>250 nmol/L) Platelets bldon 12-19-2021 Platelets (Bld) [#/Vol] 281 10*3/uL 150-450 [facility] Work Phone: Serum DNA double strand anti body assay (units/volume)on 12-19-2021 DNA double strand Ab Qn (S) [IU]/mL 0-9 [facility] Work Phone: [phone] Comment on above: Negative <5 Equivoca l 5 - 9 Positive >9 Serum Anaid-1 antibody assay (u nits/volume)on 12-19-2021 Anaid-1 extractable nuclear Ab Qn (S) <0.2 AI 0.0-0.9 [facility] Work Phone: Serum Scl-70 extractable nuc lear antibody assay (units/volume)on 12-19-2021 SCL-70 extractable nuclear Ab Qn (S) 0.2 AI 0.0-0.9 [facility] Work Phone: Serum Santacruz extractable nucl ear antibody detectionon 12-19-2021 Santacruz extractable nuclear Ab Ql (S) <0.2 AI 0.0-0.9 [facility] Work Phone: Serum classic neutrophil cyt oplasmic antibody assay (units/volume)on 12-19-2021 Neutrophil cytoplasmic Ab.classic Qn (S) <1:20 titer Neg:<1:20 [facility] Work Phone: Serum mitochondria antibody detectionon 12-19-2021 Mitochondria Ab Ql (S) <20.0 Units 0.0-20.0 [facility] Work Phone: Comment on above: Negative 0.0 - 20.0 Equivocal 20.1 - 24.9 Positive >24.9Mitochondrial (M2) Antibodies are found in 90-96% ofpatients with primary biliary cirrhosis. Serum or plasma C reactive p rotein measurement (mass/volume)on 12-19-2021 CRP [Mass/Vol] mg/L 0.0-3.0 [facility] Work Phone: Comment on above: C-Reactive Protein ( CRP) provides useful information for thediagnosis, therapy and monitoring of inflammatory processesand associated diseases. For the evaluation of Relative Riskfor Cardiovascular Disease, a High Sensitivity CRP (HSCRP)should be ordered. Serum or plasma actin IgG an tibody assay (units/volume)on 12-19-2021 Actin IgG Qn 10 Units 0-19 [facility] Work Phone: Comment on above: Negative 0 - 19 Weak positive 20 - 30 Moderate to strong positive >30 Actin Antibodies are found in 52-85% of patients with autoimmune hepatitis or chronic active hepatitis and in 22% of patients with primary biliary cirrhosis. Serum or plasma albumin negra urement (mass/volume)on 12-19-2021 Albumin [Mass/Vol] 3.8 g/dL 3.2-5.0 [facility] Work Phone: Serum or plasma albumin/glob ulin mass ratioon 12-19-2021 Albumin/Globulin [Mass ratio] 0.9 {ratio} 0.9-2.4 [facility] Work Phone: Serum or plasma angiotensin converting enzyme measurement (enzymatic activity/volume)on 12-19-2021 Angiotensin converting enzyme [Catalytic activity/Vol] 40 U/L [facility] Work Phone: Serum or plasma bone alkalin e phosphatase/total alkaline phosphatase ratio (catalyticon 12-19-2021 ALP Bone [Catalytic fraction] 34 % [facility] Work Phone: Serum or plasma calcitriol m easurement (mass/volume)on 12-19-2021 1,25-dihydroxyvitamin D3 [Mass/Vol] 31.4 pg/mL 24.8-81.5 [facility] Work Phone: Comment on above: Please note refere nce interval changePerformed at: [facility] [employer] [address] [id number] Director: Varun Jo PhD, Phone: [phone] at: [facility] [employer] [id number] [place], [place] [id number] Director: Kiko Dent MD, Phone: [phone] Serum or plasma calcium negra urement (mass/volume)on 12-19-2021 Calcium [Mass/Vol] 9.1 mg/dL 8.5-10.1 oste r [facility] Work Phone: Serum or plasma creatinine m easurement (mass/volume)on 12-19-2021 Creatinine [Mass/Vol] 0.82 mg/dL 0.55-1.02 [address] [facility] Work Phone: Comment on above: The validity of the calculated GFR & GFRAA in patients over 70 years has not been determined. Clinical correlation is essential. Serum or plasma ferritin rajesh surement (mass/volume)on 12-19-2021 Ferritin [Mass/Vol] 101 ng/mL 8- [facility] Work Phone: Serum or plasma intestinal a lkaline phosphatase/total alkaline phosphatase ratio (nicko 12-19-2021 ALP Intest [Catalytic fraction] 1 % 0-18 [facility] Work Phone: Serum or plasma liver alkali ne phosphatase/total alkaline phosphatase ratio (catalytion 12-19-2021 ALP Liver [Catalytic fraction] 65 % 18-85 [facility] Work Phone: Serum or plasma urea nitroge n measurement (mass/volume)on 12-19-2021 Urea nitrogen [Mass/Vol] 13 mg/dL 7-18 [facility] Work Phone: Serum perinuclear neutrophil cytoplasmic antibody titer by immunofluorescenceon 12-19-2021 Neutrophil cytoplasmic Ab.perinuclear IF (S) [Titer] <1:20 titer Neg:<1:20 [facility] Work Phone: Comment on above: The presence of posi tive fluorescence exhibiting P-ANCA orC-ANCA patterns alone is not specific for the diagnosis ofWegener's Granulomatosis (WG) or microscopic polyangiitis.Decisions about treatment should not be based solely onANCA IFA results. The [employer] ANCA [employer] Consensusrecommends follow up testing of positive sera with both GA-3 and MPO-ANCA enzyme immunoassays. As many as 5% serumsamples are positive only by EIA. Ref. AM J Clin [id number];111:507-513. Thin prep Papanicolaou smear with manual screeningon 12-19-2021 Thin prep Papanicolaou smear with manual screening 51 U/L 15-37 [facility] Work Phone: Thin prep Papanicolaou smear with manual screening 6 5-15 [facility] Work Phone: Thin prep Papanicolaou smear with manual screening 216 U/L 84-246 [facility] Work Phone: Thin prep Papanicolaou smear with manual screening 163 IU/L 44-121 [facility] Work Phone: Thin prep Papanicolaou smear with manual screening 130 ug/dL 80-158 [facility] Work Phone: Comment on above: Detection Limit = 5 Iron measurement (mass/mass) on 09-28-2021 Iron (Unsp spec) [Mass/Mass] 90 ug/dL 50-170 [facility] Work Phone: Laboratory - Chemistry and C hemistry - challengeon 09-28-2021 Transferrin [Mass/Vol] 232 mg/dL 192-364 [facility] Work Phone: Comment on above: Performed at: [place] [id number] Director: Varun Jo PhD, Phone: [phone] No Panel Informationon 09-28 Total Iron Binding Capacity 306 ug/dL 250-450 [facility] Work Phone: Serum or plasma ferritin rajesh surement (mass/volume)on 09-28-2021 Ferritin [Mass/Vol] 132 ng/mL 8-252 [facility] Work Phone: Serum or plasma iron saturat ion measurement (mass fraction)on 09-28-2021 Iron saturation [Mass fraction] 29.4 % 15.0-55.0 [facility] Work Phone: Absolute lymphocyte counton 09-27-2021 Lymphocytes Auto (Unsp spec) [#/Vol] 1.30 10*3/uL 0.83-4.51 [facility] Work Phone: Basophil percentageon 2021 Basophils/100 WBC (Bld) 1.4 % 0-1 [facility] Work Phone: Bilirubin [Mass/Vol] 0.50 mg/dL 0.20-1.00 [facility] Work Phone: Comment on above: For patients on eltr ombopag therapy, use of Dimension [place] TBIL is not recommended. Chloride [Moles/Vol] 107 mmol/L 98-107 [facility] Work Phone: Eosinophils/100 WBC (Bld) 4.2 % 0-5 [facility] Work Phone: Glucose [Mass/Vol] 95 mg/dL 74-106 [facility] Work Phone: Neutrophils (Bld) [#/Vol] 2.8 10*3/uL 2.0-7.7 [facility] Work Phone: Neutrophils/100 WBC (Bld) 55.4 % 47-70 [facility] Work Phone: Potassium [Moles/Vol] 4.1 mmol/L 3.5-5.1 [facility] Work Phone: Protein [Mass/Vol] 7.3 g/dL 6.4-8.2 [facility] Work Phone: Sodium [Moles/Vol] 140 mmol/L 136-145 [facility] Work Phone: WBC (Bld) [#/Vol] 5.0 10*3/uL 4.4-11.0 [facility] Work Phone: Blood erythrocytes count (nu mber/volume)on 09-27-2021 RBC (Bld) [#/Vol] 5.12 10*6/uL 4.2-5.4 [facility] Work Phone: Blood hemoglobin measurement (mass/volume)on 09-27-2021 Hemoglobin (Bld) [Mass/Vol] 15.3 g/dL 12.0-15.0 [facility] Work Phone: Blood lymphocytes/100 leukoc yteson 09-27-2021 Lymphocytes/100 WBC (Bld) 25.9 % 19-41 [facility] Work Phone: Blood monocytes/100 leukocyt eson 09-27-2021 Monocytes/100 WBC (Bld) 12.9 % 0-10 [facility] Work Phone: Blood platelet mean volumeon 09-27-2021 Platelet mean volume (Bld) [Entitic vol] 10.3 fL 6.2-12.0 [facility] Work Phone: Determination of erythrocyte mean corpuscular volume (MCV)on 09-27-2021 MCV (RBC) [Entitic vol] 90.4 fL 81-99 [facility] Work Phone: Hematocrit Auto (Bld) [Volum e fraction]on 09-27-2021 Hematocrit (Bld) [Volume fraction] 46.3 % 37-47 [facility] Work Phone: Laboratory - Chemistry and C hemistry - challengeon 09-27-2021 ALP [Catalytic activity/Vol] 179 U/L 45-117 [facility] Work Phone: ALT [Catalytic activity/Vol] 125 U/L 13-56 [facility] Work Phone: CO2 [Moles/Vol] 29.0 mmol/L 21.0-32.0 [facility] Work Phone: Free T4 [Mass/Vol] 1.18 ng/dL 0.76-1.46 [facility] Work Phone: Globulin (S) [Mass/Vol] 4.0 g/dL 2.2-4.2 [facility] Work Phone: Urea nitrogen/Creatinine [Mass ratio] 17.8 mg/mg 10-20 [facility] Work Phone: Laboratory - Hematology and Cell countson 09-27-2021 Erythrocyte distribution width (RBC) [Entitic vol] 42.8 fL 35.1-43.9 [facility] Work Phone: Erythrocyte distribution width (RBC) [Ratio] 12.9 % 11.6-14.6 [facility] Work Phone: Immature granulocytes/100 WBC (Bld) 0.200 % 0.0-0.9 [facility] Work Phone: Comment on above: IG% - Immature Granu locytes (promyelocytes, myelocytes and metamyelocytes) > 1% indicates that a LEFT SHIFT is Present. MCH (RBC) [Entitic mass] 29.9 pg 27.0-32.0 [facility] Work Phone: Nucleated RBC/100 WBC (Bld) [Ratio] 0 % 0-5 [facility] Work Phone: MCHC Auto (RBC) [Mass/Vol]on 09-27-2021 MCHC (RBC) [Mass/Vol] 33.0 g/dL 32-36 [facility] Work Phone: No Panel Informationon 09-27 Estimated GFR (MDRD) Amer 86 mL/min >60 [facility] Work Phone: Comment on above: GFR Calc Estimated GFR (MDRD) Non-Af Amer 71 mL/min >60 [facility] Work Phone: Comment on above: Non- GFR Calc Vitamin D 25-Hydroxy 39.3 ng/mL [facility] Work Phone: Comment on above: Vitamin D 25(OH) Sta tus Range Deficiency <20 ng/mL (50nmol/L) Insufficiency 20 - 30 ng/mL (50 - 75 nmol/L) Sufficiency 30 - 100 ng/mL (75 - 250 nmol/L) Toxicity >100 ng/mL (>250 nmol/L) Platelets bldon 09-27-2021 Platelets (Bld) [#/Vol] 293 10*3/uL 150-450 [facility] Work Phone: Serum or plasma albumin negra urement (mass/volume)on 09-27-2021 Albumin [Mass/Vol] 3.3 g/dL 3.2-5.0 [facility] Work Phone: Serum or plasma albumin/glob ulin mass ratioon 09-27-2021 Albumin/Globulin [Mass ratio] 0.8 {ratio} 0.9-2.4 [facility] Work Phone: Serum or plasma calcium negra urement (mass/volume)on 09-27-2021 Calcium [Mass/Vol] 9.1 mg/dL 8.5-10.1 [facility] Work Phone: Serum or plasma creatinine m easurement (mass/volume)on 09-27-2021 Creatinine [Mass/Vol] 0.84 mg/dL 0.55-1.02 [facility] Work Phone: Comment on above: The validity of the calculated GFR & GFRAA in patients over 70 years has not been determined. Clinical correlation is essential. Serum or plasma urea nitroge n measurement (mass/volume)on 09-27-2021 Urea nitrogen [Mass/Vol] 15 mg/dL 7-18 [facility] Work Phone: Thin prep Papanicolaou smear with manual screeningon 09-27-2021 Thin prep Papanicolaou smear with manual screening 86 U/L 15-37 [facility] Work Phone: Thin prep Papanicolaou smear with manual screening 4 5-15 [facility] Work Phone: Absolute lymphocyte counton 06-28-2021 Lymphocytes Auto (Unsp spec) [#/Vol] 1.25 10*3/uL 0.83-4.51 [facility] Work Phone: Basophil percentageon 2021 Basophils/100 WBC (Bld) 1.3 % 0-1 [facility] Work Phone: Bilirubin [Mass/Vol] 0.50 mg/dL 0.20-1.00 [facility] Work Phone: [phone] Comment on above: For patients on eltr ombopag therapy, use of Dimension [place] TBIL is not recommended. Chloride [Moles/Vol] 108 mmol/L 98-107 [facility] Work Phone: Eosinophils/100 WBC (Bld) 5.0 % 0-5 [facility] Work Phone: Glucose [Mass/Vol] 98 mg/dL 74-106 [facility] Work Phone: Neutrophils (Bld) [#/Vol] 3.0 10*3/uL 2.0-7.7 [facility] Work Phone: Neutrophils/100 WBC (Bld) 57.5 % 47-70 [facility] Work Phone: Potassium [Moles/Vol] 4.0 mmol/L 3.5-5.1 [facility] Work Phone: Protein [Mass/Vol] 7.3 g/dL 6.4-8.2 [facility] Work Phone: Sodium [Moles/Vol] 139 mmol/L 136-145 [facility] Work Phone: WBC (Bld) [#/Vol] 5.2 10*3/uL 4.4-11.0 [facility] Work Phone: [phone] Blood erythrocytes count (nu mber/volume)on 06-28-2021 RBC (Bld) [#/Vol] 5.32 10*6/uL 4.2-5.4 [facility] Work Phone: Blood hemoglobin measurement (mass/volume)on 06-28-2021 Hemoglobin (Bld) [Mass/Vol] 16.2 g/dL 12.0-15.0 [facility] Work Phone: [phone] Blood lymphocytes/100 leukoc yteson 06-28-2021 Lymphocytes/100 WBC (Bld) 24.1 % 19-41 [facility] Work Phone: [phone] Blood monocytes/100 leukocyt eson 06-28-2021 Monocytes/100 WBC (Bld) 11.9 % 0-10 [facility] Work Phone: Blood platelet mean volumeon 06-28-2021 Platelet mean volume (Bld) [Entitic vol] 10.9 fL 6.2-12.0 [facility] Work Phone: Determination of erythrocyte mean corpuscular volume (MCV)on 06-28-2021 MCV (RBC) [Entitic vol] 89.1 fL 81-99 [facility] Work Phone: Hematocrit Auto (Bld) [Volum e fraction]on 06-28-2021 Hematocrit (Bld) [Volume fraction] 47.4 % 37-47 [facility] Work Phone: Laboratory - Chemistry and C hemistry - challengeon 06-28-2021 ALP [Catalytic activity/Vol] 133 U/L 45-117 [facility] Work Phone: ALT [Catalytic activity/Vol] 55 U/L 13-56 [facility] Work Phone: CO2 [Moles/Vol] 26.0 mmol/L 21.0-32.0 [facility] Work Phone: Free T4 [Mass/Vol] 0.78 ng/dL 0.76-1.46 [facility] Work Phone: Globulin (S) [Mass/Vol] 3.9 g/dL 2.2-4.2 [facility] Work Phone: Urea nitrogen/Creatinine [Mass ratio] 15.3 mg/mg 10-20 [facility] Work Phone: Laboratory - Hematology and Cell countson 06-28-2021 Erythrocyte distribution width (RBC) [Entitic vol] 41.0 fL 35.1-43.9 [facility] Work Phone: Erythrocyte distribution width (RBC) [Ratio] 12.5 % 11.6-14.6 [facility] Work Phone: Immature granulocytes/100 WBC (Bld) 0.200 % 0.0-0.9 [facility] Work Phone: Comment on above: IG% - Immature Granu locytes (promyelocytes, myelocytes and metamyelocytes) > 1% indicates that a LEFT SHIFT is Present. MCH (RBC) [Entitic mass] 30.5 pg 27.0-32.0 [facility] Work Phone: Nucleated RBC/100 WBC (Bld) [Ratio] 0 % 0-5 [facility] Work Phone: MCHC Auto (RBC) [Mass/Vol]on 06-28-2021 MCHC (RBC) [Mass/Vol] 34.2 g/dL 32-36 [facility] Work Phone: No Panel Informationon 06-28 Estimated GFR (MDRD) Amer 78 mL/min >60 [facility] Work Phone: Comment on above: GFR Calc Estimated GFR (MDRD) Non-Af Amer 65 mL/min >60 [facility] Work Phone: Comment on above: Non- GFR Calc Thyroid Stimulating Hormone (TSH) 3.96 uIU/mL 0.358-3.74 [facility] Work Phone: Vitamin D 25-Hydroxy 49.2 ng/mL [facility] Work Phone: Comment on above: Vitamin D 25(OH) Sta tus Range Deficiency <20 ng/mL (50nmol/L) Insufficiency 20 - 30 ng/mL (50 - 75 nmol/L) Sufficiency 30 - 100 ng/mL (75 - 250 nmol/L) Toxicity >100 ng/mL (>250 nmol/L) Platelets bldon 06-28-2021 Platelets (Bld) [#/Vol] 285 10*3/uL 150-450 [facility] Work Phone: Serum or plasma albumin negra urement (mass/volume)on 06-28-2021 Albumin [Mass/Vol] 3.4 g/dL 3.2-5.0 [facility] Work Phone: Serum or plasma albumin/glob ulin mass ratioon 06-28-2021 Albumin/Globulin [Mass ratio] 0.9 {ratio} 0.9-2.4 [facility] Work Phone: Serum or plasma calcium negra urement (mass/volume)on 06-28-2021 Calcium [Mass/Vol] 9.1 mg/dL 8.5-10.1 [facility] Work Phone: Serum or plasma creatinine m easurement (mass/volume)on 06-28-2021 Creatinine [Mass/Vol] 0.92 mg/dL 0.55-1.02 Dee ster [facility] Work Phone: Comment on above: The validity of the calculated GFR & GFRAA in patients over 70 years has not been determined. Clinical correlation is essential. Serum or plasma urea nitroge n measurement (mass/volume)on 06-28-2021 Urea nitrogen [Mass/Vol] 14 mg/dL 7-18 [facility] Work Phone: Thin prep Papanicolaou smear with manual screeningon 06-28-2021 Thin prep Papanicolaou smear with manual screening 32 U/L 15-37 [facility] Work Phone: Thin prep Papanicolaou smear with manual screening 5 5-15 [facility] Work Phone: CNOVon 04-25-2017 CNOV Office Visit (GASTWC) RACHEL MAY ([id number]) 1950 [facility] Time Provider Dybenfmtvy26/29/17 8:20 AM TY CRENSHAW (HOA) [facility] During your visit today, we recorded the following information about you: Pulse Blood pressure Weight Height 65/minute 122/78 65.3 kg 1.549 Alyssa Crenshaw RN CNP 04/25/2017 9:02 AM SignedRachel Sher May a 66 year old female who is returning for follow up regardingdysphagia. I saw the patient on 04/01/17 to discuss screening colonoscopy. Thatnote has been reviewed.The patient was seen by Dr. Ross for upper endoscopy and proieatdskq95/11/17. The procedure report has been reviewed and findings as follows:EGD Findings:? ? ?One benign-appearing, intrinsic stenosis was found. This stenosis was? ? ?mildly severe and. The stenosis was traversed. A TTS dilator was passed? ? ?through the scope. Dilation with an 18-19-20 mm balloon dilator was? ? ?performed to 20 mm. Estimated blood loss was minimal.? ? ?Mucosal changes including ringed esophagus were found in the middle? ? ?third of the esophagus. Biopsies were taken with a cold forceps for? ? ?histology. Estimated blood loss was minimal.? ? ?The entire examined stomach was normal. Biopsies were taken with a cold? ? ?forceps for histology. Estimated blood loss was minimal.? ? ?The examined duodenum was normal.FINAL DIAGNOSIS1. Stomach, antrum, biopsy (A) - Gastric oxyntic mucosa with no diagnosticalteration.- No histomorphologic evidence of Helicobacter pylori.2. Esophagus, mid, biopsy (B) - Minimal active esophagitis (please seecomment).EDK/ka 04/08/17COMMENTA GMS performed on part 2 is negative for fungal forms.Colonoscopy Findings:? ? ?The colon (entire examined portion) appeared normal.Presenting complaint: The patient reports that the head of the bed is alreadyelevated 3-4 inches. Will consider increasing to 6 inches. We discussed noteating for 3 hours before bed.Also recommending PPI or H2 rosibel. She has Pepcid at home and will starttaking that on a daily basis. She may take it twice a day, when/if needed.The patient reports that she experienced a little reflux over the holidays.Also reported a feeling of dysphagia. She might have been swallowing bread. Wehave discussed a trial of an anti-spasmotic. She will let me know if thatfeeling returns/increases.REVIEW OF SYSTEMS:GENERAL: No unplanned weight loss.GI:As reported above.All other reviewed and negative other than HPI.PAST MEDICAL HISTORYDiagnosis Date- Dysphagia, unspecified(26.20)- Esophagitis, unspecified- Internal hemorrhoids without mention of complication- Osteoarthritis- PMH - PAST MEDICAL HISTORY OF DDD in cervical disc- Stricture and stenosis of esophagusPAST SURGICAL HISTORYProcedure Laterality Date- COLONOSCOP W/ OR W/O [facility] SPEC 07/31/06- COLONOSCOP W/ OR W/O [facility] SPEC 04/07/2017 repeat 10 years- CRANIOTOMY,NEUROELEC,CORTI GENARO 1993- DANDamp;C, DIAG AND/OR THERAPEUTIC 1975 Dilation ANDamp; curettage- EGD W/O [facility] SPECIMEN W/BX 02/18/11 with balloon dilation- EGD W/O OR W/BRUSH/WASH 04/07/2017 EGD- LAMINECTOMY,ANDgt;2 SGMT,LUMBAR 2004- PAST SURGICAL HISTORY OF 2004 wrist surgery right- PAST SURGICAL HISTORY OF 2009 wrist surgery leftFAMILY HISTORYProblem Relation Age of Onset- Colon Cancer Other COUSIN ON MOTHERS SIDE- Heart Father- Arthritis Sister- IBS [OTHER] Sister- eye problems [OTHER] Brother- stomach issues [OTHER] BrotherCurrent Outpatient Prescriptions:glucosam-msm -chondroit-vit D3 750 mg-125 mg -600 mg tab Take by mouth twicedaily. Disp: Rfl:Cholecalciferol, Vitamin D3, 2,000 unit cap Take by mouth once daily. Disp:Rfl:CINNAMON BARK (CINNAMON ORAL) Take by mouth as needed. Disp: Rfl:carboxymethylcellulose (REFRESH TEARS) 0.5 % drop Use 1 Drop in both eyes threetimes daily. as needed Disp: Rfl:No current facility-administered medications for this visit.SOCIAL HISTORY:ReviewedPHYSICAL EXAMINATION:Blood pressure 122/78, pulse 65, height 154.9 cm (5' 1ANDquot;), weight 65.3 kg(144 lb).General Appearance: Well appearing, alert, in no acute distress, well-hydrated,well nourished.Skin: Skin color, texture, turgor normal, no suspicious rashes or lesions.Eyes: Anicteric sclera.Heart: RRR without murmur.Impression: GERD with esophagitis 2)esophageal spasmPlan: Discussed PPI. Will start with Pepcid and go to PPI if needed. Alsodiscussed a trial of hyoscyamine ac. She will call if symptoms worsen and shedecides to try that. Discussed increasing the elevation of the head of the bedand avoiding eating less than three hours before bed.I have personally interviewed and examined this patient. I have reviewed theinformation that the REHAB DIRECTOR OCCUPATIONAL THERAPIST entered for this encounter. Greater than 25 minutestotal time used this visit to review old chart, review new information, updatecurrent history and evaluate patient. A majority of the time was spent indiscussion and counseling to formulate the plan.QUINN Carney RN CNP 04/25/2017 8:50 AM SignedConsider using Pepcid daily.Consider elevating the head of the bed 6 inches.Contact the office if you'd like to try the anti-spasmotic.Follow up as needed.Referring Provider: RYAN ROSS [[id number]]Allergies As of Date: 04/25/2017 Noted Allergy ReactionDILANTIN (PHENYTOIN SODIUM EXTEND*06/30/2006TRIMPEX (TRIMETHOPRIM) 06/30/2006Date Reviewed: 04/25/2017Reviewed by: Ai Small REHAB DIRECTOR OCCUPATIONAL THERAPIST - Fully AssessedReason for Visit: follow up procedure colon/EGD [facility] 04-07-17 [Other]Primary Visit Diagnosis:Gastroesophageal reflux disease with esophagitis [K21.0]Prescriptions as of 04/25/2017 Sig: GLUCOSAMINE 750 MG-MSM 125 MG* Take by mouth twice daily. CHOLECALCIFEROL (VITAMIN D3) * Take by mouth once daily. CINNAMON ORAL Take by mouth as needed. CARBOXYMETHYLCELLULOSE SODIUM* Use 1 Drop in both eyes three*Problem List As Of Date 04/25/2017 Noted Resolved Stricture and stenosis of esophagus [K22.2] INVALID FOR* Esophagitis, unspecified [K20.9] INVALID FOR* Dysphagia, unspecified [R13.10] INVALID FOR* Encounter for screening for malignant neoplasm *INVALID FOR* More... Other instructions from your clinician: Consider using Pepcid daily. Consider elevating the head of the bed 6 inches. Contact the office if you'd like to try the anti-spasmotic. Follow up as needed. Status:Closed by TY CRENSHAW CNP on 04/25/17 [facility] PROGRESSon 04-25-2017 PROGRESS HNO ID: [id number] thor: Ty (Blanket Folder) ThorpeService: (none)Author Type: Nurse PractitionerType: Progress NotesFiled: 04/25/2017 9:02 AMNote Text:Rachel May a 66 year old female who is returning for follow upregarding dysphagia. I saw the patient on 04/01/17 to discuss screeningcolonoscopy. That note has been reviewed.The patient was seen by Dr. Ross for upper endoscopy and uunilsmczcp00/11/17. The procedure report has been reviewed and findings as follows:EGD Findings:? ? ?One benign-appearing, intrinsic stenosis was found. This stenosis was? ? ?mildly severe and. The stenosis was traversed. A TTS dilator waspassed? ? ?through the scope. Dilation with an 18-19-20 mm balloon dilator was? ? ?performed to 20 mm. Estimated blood loss was minimal.? ? ?Mucosal changes including ringed esophagus were found in the middle? ? ?third of the esophagus. Biopsies were taken with a cold forceps for? ? ?histology. Estimated blood loss was minimal.? ? ?The entire examined stomach was normal. Biopsies were taken with acold? ? ?forceps for histology. Estimated blood loss was minimal.? ? ?The examined duodenum was normal.FINAL DIAGNOSIS1. Stomach, antrum, biopsy (A) - Gastric oxyntic mucosa with no diagnosticalteration.- No histomorphologic evidence of Helicobacter pylori.2. Esophagus, mid, biopsy (B) - Minimal active esophagitis (please seecomment).EDK/ka 04/08/17COMMENTA GMS performed on part 2 is negative for fungal forms.Colonoscopy Findings:? ? ?The colon (entire examined portion) appeared normal.Presenting complaint: The patient reports that the head of the bed isalready elevated 3-4 inches. Will consider increasing to 6 inches. Wediscussed not eating for 3 hours before bed.Also recommending PPI or H2 rosibel. She has Pepcid at home and willstart taking that on a daily basis. She may take it twice a day, when/ifneeded.The patient reports that she experienced a little reflux over theholidays. Also reported a feeling of dysphagia. She might have beenswallowing bread. We have discussed a trial of an anti-spasmotic. Shewill let me know if that feeling returns/increases.REVIEW OF SYSTEMS:GENERAL: No unplanned weight loss.GI:As reported above.All other reviewed and negative other than HPI.PAST MEDICAL HISTORYDiagnosis Date- Dysphagia, unspecified(787.20)- Esophagitis, unspecified- Internal hemorrhoids without mention of complication- Osteoarthritis- PMH - PAST MEDICAL HISTORY OF DDD in cervical disc- Stricture and stenosis of esophagusPAST SURGICAL HISTORYProcedure Laterality Date- COLONOSCOP W/ OR W/O [facility] SPEC 07/31/06- COLONOSCOP W/ OR W/O [facility] SPEC 04/07/2017 repeat 10 years- CRANIOTOMY,NEUROELEC,CORTI GENARO 1993- DANDC, DIAG AND/OR THERAPEUTIC 1974 Dilation AND curettage- EGD W/O [facility] SPECIMEN W/BX 02/18/11 with balloon dilation- EGD W/O OR W/BRUSH/WASH 04/07/2017 EGD- LAMINECTOMY,>2 SGMT,LUMBAR 2004- PAST SURGICAL HISTORY OF 2004 wrist surgery right- PAST SURGICAL HISTORY OF 2009 wrist surgery leftFAMILY HISTORYProblem Relation Age of Onset- Colon Cancer Other COUSIN ON MOTHERS SIDE- Heart Father- Arthritis Sister- IBS [OTHER] Sister- eye problems [OTHER] Brother- stomach issues [OTHER] BrotherCurrent Outpatient Prescriptions:glucosam-msm -chondroit-vit D3 750 mg-125 mg -600 mg tab Take by mouthtwice daily. Disp: Rfl:Cholecalciferol, Vitamin D3, 2,000 unit cap Take by mouth once daily.Disp: Rfl:CINNAMON BARK (CINNAMON ORAL) Take by mouth as needed. Disp: Rfl:carboxymethylcellulose (REFRESH TEARS) 0.5 % drop Use 1 Drop in both eyesthree times daily. as needed Disp: Rfl:No current facility-administered medications for this visit.SOCIAL HISTORY:ReviewedPHYSICAL EXAMINATION:Blood pressure 122/78, pulse 65, height 154.9 cm (5' 1), weight 65.3 kg(144 lb).General Appearance: Well appearing, alert, in no acute distress,well-hydrated, well nourished.Skin: Skin color, texture, turgor normal, no suspicious rashes or lesions.Eyes: Anicteric sclera.Heart: RRR without murmur.Impression: GERD with esophagitis 2)esophageal spasmPlan: Discussed PPI. Will start with Pepcid and go to PPI if needed.Also discussed a trial of hyoscyamine ac. She will call if symptomsworsen and she decides to try that. Discussed increasing the elevation ofthe head of the bed and avoiding eating less than three hours before bed.I have personally interviewed and examined this patient. I have reviewedthe information that the REHAB DIRECTOR OCCUPATIONAL THERAPIST entered for this encounter. Greater than 25minutes total time used this visit to review old chart, review newinformation, update current history and evaluate patient. A majority ofthe time was spent in discussion and counseling to formulate the plan.Ty Crenshaw RN [facility] HISTORY PHYSICALon 7 Cholesterol HNO ID: [id number] thor: Ryan Savage: GastroenterologyAuthor Type: PhysicianType: HANDPFiled: 04/07/2017 2:46 PMNote Text:UPDATED HISTORY AND PHYSICAL EXAMINATIONSERVICE DATE: 04/07/2017SERVICE TIME: 2:45 PMPHYSICAL EXAM MUST BE COMPLETED ON ADMISSIONThe History and Physical (completed in the past 30 days) has been reviewedand the patient has been examined. The contents accurately reflect thepatient's condition with the following additions or revisions since theHANDP was completed.Examination indicates no changes.This HANDP can be found in the Electronic Medical Record dated 03/31/17.SIGNATURE: Ryan Ross MD PATIENT NAME: Rachel MayDATE: April 07, 2017 : 2:45 PM PAGER: [facility] NURSING PROGon 04-07-2017 NURSING PROG HNO ID: [id number] thor: DAMARI Hernandez Rnervice: (none)Author Type: Registered NurseType: Nursing Progress NoteFiled: 04/07/2017 4:12 PMNote Text:Patient did not experience a fall prior to discharge.Patient did not experience a burn prior to discharge.Genesis Cardenas RN [facility] NURSING PROG HNO ID: [id number] Author: Genesis Cardenas RN Service: (none) Author Type: Registered Nurse Type: Nursing Progress Note Filed: 04/07/2017 3:39 PM Note Text: Patient sitting up in bed tolerating juice without problems. Genesis Cardenas RN [facility] NURSING PROG HNO ID: [id number] thor: Ana Cristina Hernandez Rn: (none)Author Type: Registered NurseType: Nursing Progress NoteFiled: 04/07/2017 3:30 PMNote Text:Patient arrived to PACU, on left side, abdomen soft. Patient restingcomfortably.Genesis Cardenas RN [facility] NURSING PROG HNO ID: [id number] thor: Ana Cristina Dow Rn: NursingAuthor Type: Registered NurseType: Nursing Progress NoteFiled: 04/07/2017 3:19 PMNote Text:Preoperative order for IV Antibiotic Prophylaxis is N/A.Patient did not experience a fall within the Intraoperative proceduralarea.Patient did not experience a burn within the Intraoperative proceduralarea.Maria Victoria Harmon RN [facility] NURSING PROG HNO ID: [id number] thor: Ana Cristina Hernandez Rn: (none)Author Type: Registered NurseType: Nursing Progress NoteFiled: 04/07/2017 4:16 PMNote Text: Patient did not experience a fall within the Preoperative area.Patient did not experience a burn within the Preoperative area.[facility] PRE-OP NURSING HAND OFF NOTESBAR Hand off given to Jacqueline Vee RN.Hand off was communicated verbally and at the patient's bedside and allquestions were answered.Eliecer Hernandez RN [facility] PT EDon 04-07-2017 PT ED HNO ID: [id number] thor: Ana Cristina Hernandez Rn: (none)Author Type: Registered NurseType: Patient EducationFiled: 04/07/2017 2:13 PMNote Text:PRE OP LEARNING ASSESSMENTPROCEDURE/SURGER Y: GI PROCEDURES: Colonoscopy and EGDREADINESS TO LEARNCOGNITIVE ABILITY: Alert and orientedMOTIVATION TO LEARN: EagerInterestedFAMILY SUPPORT: High - Very involved in pt carePATIENT LEARNS BEST BY: Individual InstructionWritten Instruction - Hand-outsVerbal InstructionMultiple MethodsFACTORS AFFECTING LEARNING: NonePHYSICAL LIMITATIONS AFFECTING LEARNING: NoneElectronically Signed By: Genesis Cardenas RN In Department: AMBULATORYSURGERY [facility] SURGICAL PATHOLOGYon 017 SURGICAL PATHOLOGY [facility]: [id number] Physician: RYAN ROSS MD FI NAL DIAGNOSIS1. Stomach, antrum, biopsy (A) - Gastric oxyntic mucosa with no diagnosticalteration.- No histomorphologic evidence of Helicobacter pylori.2. Esophagus, mid, biopsy (B) - Minimal active esophagitis (please seecomment).EDK/poncho 04/08/17COMMENTA GMS performed on part 2 is negative for fungal forms.Madalyn Romero D.O.(Electronic Signature) S PECIMEN SUBMITTEDA: ANTRUM, BIOPSY B: MID ESOPHAGUS, BIOPSY CLINICAL DATAZ12.11, R13.10GROSS DESCRIPTIONA. Received in formalin are two pieces of olmedo, soft tissue aggregating to0.6 x 0.2 x 0.2 cm. Totally submitted in one cassette.B. Received in formalin are two pieces of olmedo, soft tissue aggregating to0.3 x 0.1 x 0.1 cm. Totally submitted in one cassette.Gross examination performed at [facility], [address] [place] [id number] 04/08/2017 2:09:30 AMPatient ID #: [id number] of Report: 04/11/2017Date of Procedure: 04/07/2017Date of Receipt: 04/07/2017Submitted by: RYAN ROSS MDLocation: [id number] interpretation performed at [facility], [facility] [address]. [facility] HOSPon 04-02-2017 HOSP Patient:Leonela May ra KMRN: Height:5' 1(1.549 m)Weight:144 lb 12.8 oz (65.681 kg)Outpatient Medications as of 04/07/17:[id number] droit-vit D3 750 mg-125 mg -600 mg tabCholecalciferol, Vitamin D3, 2,000 unit capCINNAMON BARK (CINNAMON ORAL)carboxymethylcellulos e (REFRESH TEARS) 0.5 % dropAdmission/Clinic Administered Medications as of 04/07/17:lactated ringers infusionProblem List:Stricture and stenosis of esophagus [K22.2]Esophagitis, unspecified [K20.9]Dysphagia, unspecified(787.20) [R13.10]Encounter for screening for malignant neoplasm of colon [Z12.11]Allergies:Dilantin [Phenytoin Sodium Extended]Trimpex [Trimethoprim]Date Verified: 04/07/17Lab ValuesNo results within the last 30 days for the following basenames: K,HCTProgress Notes ([facility]):Ai Small LPN 04/02/2017 8:04 AM SignedAMBULATORY PATIENT EDUCATION NOTEREADINESS TO LEARNCogntitive ability: Alert and orientedMotivation to learn: InterestedFamily support: Unable to assess - family not presentInstruction provided to: PatientPatient learns best by: Individual instruction, written instruction (hand-outs),and verbal instruction.Factors affecting learning: NonePhysical limitations affecting learning: NoneLEARNING RESPONSEDiagnosis: dysphagia/screeningEducati on topic/teaching points: ColonoscopyUpper EndoscopyMETHOD OF INSTRUCTION:Teachback:Anna vidual instruction, written instruction(hand-outs), and verbal instruction.Patient/family response: Verbalizes understanding of pre-procedure instructions.Follow-up plan: Complete - No need for follow-upSupplemental material: NonePatient instructed to check insurance benefits and precertification.Patientin structed to bring in advanced directives if applicable.Referral Entered: NoDoes patient have a Pacemaker or Defibrillator? NoElectronically Signed By: Ai Small LPNIn department: Gastroenterology [facility] CNOVon 04-01-2017 CNOV Office Visit (GAST) RACHEL MAY ([id number]) 1950 FDate Time Provider Rvczguvojt00/5/17 4:00 PM TY CRENSHAW (HOA) [facility] During your visit today, we recorded the following information about you: Pulse Blood pressure Weight Height 60/minute 113/72 65.7 kg 1.549 Alyssa Crenshaw RN CNP 04/01/2017 5:10 PM SignedRachel Sher SantanaMay a 66 year old female who is self referred for screeningcolonoscopy. Her PCP is Dr. Tyron Ortega. The patient has been seen previously.The patient denies a family history of colon cancer.The patient was seen by Dr. Schilling for colonoscopy 07/31/06. The procedurereport has been reviewed and findings as follows:IMPRESSION:1. ?Small non-bleeding internal hemorrhoids were present.2. ?Normal colonoscopic examination.The patient was last seen by Dr. Schilling for EGD on 02/18/11 for dysphagia.That procedure report has been reviewed and findings as follows:Impression: ?- Z-line variable.? - Mild erythema at the gastroesophageal junction.? (biopsies were taken)? - Benign-appearing esophageal stricture. Dilated to 18? mm as described.? - Gastric mucosal abnormality characterized by mild,? antral erythema.? - Normal examined duodenum.? - She may benefit from a course of PPI.Presenting complaint: The patient denies change in bowel habits, rectalbleeding or abdominal pain. Having a bowel movement about every day.The patient reports that she has intermittent dysphagia with meat and bread.She states ANDquot;it isn't frequent, but I wanted to mention it since I had stacy dilated beforeANDquot;. She has to have fluids near by to take betweenbites. She has to wait for the food bolus to eventually go down. She had beenon a PPI in years past. Nothing recent.REVIEW OF SYSTEMS:GENERAL: No weight loss, malaise or feversRESPIRATORY: Negative for cough, hemoptysis, wheezing, COPD, dyspnea orshortness of breathCARDIOVASCULAR: Negative for chest pain, leg swelling, hypertension, CHF orpalpitationsGI: The patient states that her appetite has been good. She does get hungry.There has been no nausea, no vomiting. She admits to intermittent dysphagia anddenies odynophagia. There has rarely been indigestion and infrequent heartburn.There has not been regurgitation. Bowel habits have been regular. There has notbeen diarrhea. There has not been constipation. The patient denies rectalbleeding. There has not been melena. No abdominal pain.SORTER PACKER: Negative for abnormal vaginal bleeding, abnormal vaginal discharge.MUSCULOSKELETAL: Positive for back pain and pain related to arthritis.Occasional ibuprofenPSYCH: Negative for sleep disturbance, mood disorder and recent psychosocialstressors.MICHELLE TOLOGY/LYMPHOLOGY Negative for prolonged bleeding, bruising easily orswollen nodesENDOCRINE: Negative for thyroid or diabetesNEURO: No history of headaches, syncope, paralysis, seizures or tremorsAll other reviewed and negative other than HPI.PAST MEDICAL HISTORYDiagnosis Date- Dysphagia, unspecified(787.20)- Esophagitis, unspecified- Internal hemorrhoids without mention of complication- Osteoarthritis- PMH - PAST MEDICAL HISTORY OF DDD in cervical disc- Stricture and stenosis of esophagusPAST SURGICAL HISTORYProcedure Laterality Date- COLONOSCOP W/ OR W/O [facility] SPEC 07/31/06- CRANIOTOMY,NEUROELEC,CORTI GENARO 1993- DANDamp;C, DIAG AND/OR THERAPEUTIC 1975 Dilation ANDamp; curettage- EGD W/O [facility] SPECIMEN W/BX 02/18/11 with balloon dilation- LAMINECTOMY,ANDgt;2 SGMT,LUMBAR 2004- PAST SURGICAL HISTORY OF 2004 wrist surgery right- PAST SURGICAL HISTORY OF 2009 wrist surgery leftFAMILY HISTORYProblem Relation Age of Onset- Colon Cancer Other COUSIN ON MOTHERS SIDE- Heart Father- Arthritis Sister- IBS [OTHER] Sister- eye problems [OTHER] Brother- stomach issues [OTHER] BrotherCurrent Outpatient Prescriptions:glucosam-msm -chondroit-vit D3 750 mg-125 mg -600 mg tab Take by mouth twicedaily. Disp: Rfl:Cholecalciferol, Vitamin D3, 2,000 unit cap Take by mouth once daily. Disp:Rfl:CINNAMON BARK (CINNAMON ORAL) Take by mouth as needed. Disp: Rfl:carboxymethylcellulose (REFRESH TEARS) 0.5 % drop Use 1 Drop in both eyes threetimes daily. as needed Disp: Rfl:No current facility-administered medications for this visit.SOCIAL HISTORY:Patient is . She has never smoked and reports her alcohol use as never.PHYSICAL EXAMINATION:Blood pressure 113/72, pulse 60, height 154.9 cm (5' 1ANDquot;), weight 65.7 kg(144 lb 12.8 oz).General Appearance: Well appearing, alert, in no acute distress, well-hydrated,well nourished.Skin: Skin color, texture, turgor normal, no suspicious rashes or lesions.Eyes: Anicteric sclera.Neck: Supple, no adenopathy; thyroid symmetric, normal size, no bruits.Lungs: Lungs clear to auscultation. No wheezing, rhonchi, rales.Heart: RRR without murmur.Abdomen: Normal abdominal exam, Abdomen soft, non-tender. Bowel sounds normal.No masses, organomegaly.Extremities: No deformities, edema, skin discoloration, clubbing or cyanosis.Peripheral Pulses: Normal.Neurologic: Gait normal. Sensation grossly intact.Impression: intermittent dysphagia 2)colorectal screeningPlan: The patient will be scheduled for an upper endoscopy as well as acolonoscopy. Preparation for the procedures, using GoLytely as the laxative,have been explained in detail. The risks, benefits, anticipated outcomes andpossible complications were mentioned. I explained the procedure inunderstandable terms and the patient was given printed material concerning theplanned procedure. The patient had the opportunity to ask questions concerningthe planned procedure. The patient freely consents to the planned procedure.The patient is encouraged to call with any questions or concerns, or shouldthere be any change in health status between now and the scheduled procedure.I have personally interviewed and examined this patient. I have read theinformation that the REHAB DIRECTOR OCCUPATIONAL THERAPIST documented in this encounter. This visit was at least30 minutes in length with a majority of the time spent in review of the pastrecords with the patient, discussion and counseling.Ty Crenshaw RN CNPessie Crenshaw RN NEON TECHNICIAN 04/01/2017 4:48 PM SignedPlease follow the provided instructions for upper endoscopy and colonoscopy.You will be using GoLytely as the laxative during the preparation. You maystart the laxative as early as 1:00 in the afternoon.Your procedures will be April 07, with Dr. Ross.Referring Provider: SELF [[id number]]Allergies As of Date: 04/01/2017 Noted Allergy ReactionDILANTIN (PHENYTOIN SODIUM EXTEND*06/30/2006TRIMPEX (TRIMETHOPRIM) 06/30/2006Date Reviewed: 04/01/2017Reviewed by: Ai Small LPN - Fully AssessedReason for Visit: colon consult [Other]Primary Visit Diagnosis:Dysphagia, unspecified type [R13.10] Other Visit Diagnosis:Encounter for screening for malignant neoplasm of colon [Z12.11]Order(s):EGD [[id number]] Order #: [id number] FUTURE COLONOSCOPY SCRN NOT HIGH RISK [[id number]] Order #: [id number] FUTURE peg 3350-electrolytes (COLYTE) 240-22.72-6.72 -5.84 gram solutionTake 4,000 mL by mouth one time only for 1 dose.Disp: 1 BottleRfl: 0Prescriptions as of 04/01/2017 Sig: GLUCOSAMINE 750 MG-MSM 125 MG* Take by mouth twice daily. CHOLECALCIFEROL (VITAMIN D3) * Take by mouth once daily. CINNAMON ORAL Take by mouth as needed. CARBOXYMETHYLCELLULOSE SODIUM* Use 1 Drop in both eyes three* PEG 3350 240 GRAM-ELECTROLYTE* Take 4,000 mL by mouth one ti*Problem List As Of Date 04/01/2017 Noted Resolved Stricture and stenosis of esophagus [K22.2] INVALID FOR* Esophagitis, unspecified [K20.9] INVALID FOR* Dysphagia, unspecified [R13.10] INVALID FOR* Other instructions from your clinician: Please follow the provided instructions for upper endoscopy and colonoscopy. You will be using GoLytely as the laxative during the preparation. You may start the laxative as early as 1:00 in the afternoon. Your procedures will be April 07, with Dr. Ross.Prescriptions ordered this encounter Disp Refills Start End PEG 3350 240 GRAM-ELECTROLYTES 22.72* 1 Srinath* 0 04/01/2017 04/01/2017 Route: ORAL Sig: Take 4,000 mL by mouth one time only for 1 dose. Status:Closed by TY CRENSHAW CNP on 04/01/17 [facility] HISTORY PHYSICALon HISTORY PHYSICAL HNO ID: [id number] thor: Ty (Blanket Folder) ThorpeService: (none)Author Type: Nurse PractitionerType: HANDPFiled: 04/01/2017 5:10 PMNote Text:Rachel May a 66 year old female who is self referred for screeningcolonoscopy. Her PCP is Dr. Tyron Ortega. The patient has been seenpreviously. The patient denies a family history of colon cancer.The patient was seen by Dr. Schilling for colonoscopy 07/31/06. The procedurereport has been reviewed and findings as follows:IMPRESSION:1. ?Small non-bleeding internal hemorrhoids were present.2. ?Normal colonoscopic examination.The patient was last seen by Dr. Schilling for EGD on 02/18/11 for dysphagia. That procedure report has been reviewed and findings as follows:Impression: ?- Z-line variable.? - Mild erythema at the gastroesophageal junction.? (biopsies were taken)? - Benign-appearing esophageal stricture. Dilated to18? mm as described.? - Gastric mucosal abnormality characterized by mild,? antral erythema.? - Normal examined duodenum.? - She may benefit from a course of PPI.Presenting complaint: The patient denies change in bowel habits, rectalbleeding or abdominal pain. Having a bowel movement about every day.The patient reports that she has intermittent dysphagia with meat andbread. She states it isn't frequent, but I wanted to mention it since Ihad to be dilated before. She has to have fluids near by to takebetween bites. She has to wait for the food bolus to eventually go down.She had been on a PPI in years past. Nothing recent.REVIEW OF SYSTEMS:GENERAL: No weight loss, malaise or feversRESPIRATORY: Negative for cough, hemoptysis, wheezing, COPD, dyspnea orshortness of breathCARDIOVASCULAR: Negative for chest pain, leg swelling, hypertension, CHFor palpitationsGI: The patient states that her appetite has been good. She does gethungry. There has been no nausea, no vomiting. She admits to intermittentdysphagia and denies odynophagia. There has rarely been indigestion andinfrequent heartburn. There has not been regurgitation. Bowel habits havebeen regular. There has not been diarrhea. There has not beenconstipation. The patient denies rectal bleeding. There has not beenmelena. No abdominal pain.SORTER PACKER: Negative for abnormal vaginal bleeding, abnormal vaginal discharge.MUSCULOSKELETAL: Positive for back pain and pain related to arthritis.Occasional ibuprofenPSYCH: Negative for sleep disturbance, mood disorder and recentpsychosocial stressors.HEMATOLOGY/LYMPH OLOGY Negative for prolonged bleeding, bruising easily orswollen nodesENDOCRINE: Negative for thyroid or diabetesNEURO: No history of headaches, syncope, paralysis, seizures or tremorsAll other reviewed and negative other than HPI.PAST MEDICAL HISTORYDiagnosis Date- Dysphagia, unspecified(787.20)- Esophagitis, unspecified- Internal hemorrhoids without mention of complication- Osteoarthritis- PMH - PAST MEDICAL HISTORY OF DDD in cervical disc- Stricture and stenosis of esophagusPAST SURGICAL HISTORYProcedure Laterality Date- COLONOSCOP W/ OR W/O [facility] SPEC 07/31/06- CRANIOTOMY,NEUROELEC,CORTI GENARO 1993- DANDC, DIAG AND/OR THERAPEUTIC 1974 Dilation AND curettage- EGD W/O [facility] SPECIMEN W/BX 02/18/11 with balloon dilation- LAMINECTOMY,>2 SGMT,LUMBAR 2005- PAST SURGICAL HISTORY OF 2004 wrist surgery right- PAST SURGICAL HISTORY OF 2010 wrist surgery leftFAMILY HISTORYProblem Relation Age of Onset- Colon Cancer Other COUSIN ON MOTHERS SIDE- Heart Father- Arthritis Sister- IBS [OTHER] Sister- eye problems [OTHER] Brother- stomach issues [OTHER] BrotherCurrent Outpatient Prescriptions:glucosam-msm -chondroit-vit D3 750 mg-125 mg -600 mg tab Take by mouthtwice daily. Disp: Rfl:Cholecalciferol, Vitamin D3, 2,000 unit cap Take by mouth once daily.Disp: Rfl:CINNAMON BARK (CINNAMON ORAL) Take by mouth as needed. Disp: Rfl:carboxymethylcellulose (REFRESH TEARS) 0.5 % drop Use 1 Drop in both eyesthree times daily. as needed Disp: Rfl:No current facility-administered medications for this visit.SOCIAL HISTORY:Patient is . She has never smoked and reports her alcohol use asnever.PHYSICAL EXAMINATION:Blood pressure 113/72, pulse 60, height 154.9 cm (5' 1), weight 65.7 kg(144 lb 12.8 oz).General Appearance: Well appearing, alert, in no acute distress,well-hydrated, well nourished.Skin: Skin color, texture, turgor normal, no suspicious rashes or lesions.Eyes: Anicteric sclera.Neck: Supple, no adenopathy; thyroid symmetric, normal size, no bruits.Lungs: Lungs clear to auscultation. No wheezing, rhonchi, rales.Heart: RRR without murmur.Abdomen: Normal abdominal exam, Abdomen soft, non-tender. Bowel soundsnormal. No masses, organomegaly.Extremities: No deformities, edema, skin discoloration, clubbing orcyanosis.Peripheral Pulses: Normal.Neurologic: Gait normal. Sensation grossly intact.Impression: intermittent dysphagia 2)colorectal screeningPlan: The patient will be scheduled for an upper endoscopy as well as acolonoscopy. Preparation for the procedures, using GoLytely as thelaxative, have been explained in detail. The risks, benefits, anticipatedoutcomes and possible complications were mentioned. I explained theprocedure in understandable terms and the patient was given printedmaterial concerning the planned procedure. The patient had the opportunityto ask questions concerning the planned procedure. The patient freelyconsents to the planned procedure.The patient is encouraged to call with any questions or concerns, orshould there be any change in health status between now and the scheduledprocedure.I have personally interviewed and examined this patient. I have read theinformation that the REHAB DIRECTOR OCCUPATIONAL THERAPIST documented in this encounter. This visit was atleast 30 minutes in length with a majority of the time spent in review ofthe past records with the patient, discussion and counseling.Ty Crenshaw RN NEON TECHNICIAN [facility] Vital Signs Date Time Vital Sign Value Performing Clinician Hector hernandez 04-03-2023 10:30-0500 Body height 157.[address] Tyron Knight Work Phone: [facility] 04-03-2023 10:30-0500 Body weight 70.[address] Tyron Knight Work Phone: [facility] 02-21-2023 08:54-0400 Body mass index (BMI) [Ratio] 28.3 kg/m2 Dr. Tyron Knight Work Phone: [facility] 02-21-2023 08:54-0400 Body weight 70.[address] Tyron Knight Work Phone: [facility] 02-21-2023 08:54-0400 Diastolic blood pressure 85 mm[Hg] Dr. Tyron Knight Work Phone: [facility] 02-21-2023 08:54-0400 Heart rate 68 /min Dr. Tyron Knight Work Phone: [facility] 02-21-2023 08:54-0400 SaO2% (BldA) [Mass fraction] 96 % Dr. Tyron Knight Work Phone: [facility] 02-21-2023 08:54-0400 Systolic blood pressure 148 mm[Hg] Dr. Tyron Knight Work Phone: [facility] 11-21-2022 12:53-0400 Body height 157.[address] Tyron Knight Work Phone: [facility] 11-21-2022 12:53-0400 Body mass index (BMI) [Ratio] 27.4 kg/m2 Dr. Tyron Knight Work Phone: [facility] 11-21-2022 12:53-0400 Body weight 68.[address] Tyron Knight Work Phone: [facility] 10-18-2022 09:34-0400 Body height 152.[address] Tyron Knight Work Phone: [facility] 10-18-2022 09:34-0400 Body mass index (BMI) [Ratio] 29.7 kg/m2 Dr. Tyron Knight Work Phone: [facility] 10-18-2022 09:34-0400 Body weight 68.[address] Tyron Knight Work Phone: [facility] 05-17-2022 09:32-0500 Body height 154.[address] Tyron Knight Work Phone: [facility] 05-17-2022 09:32-0500 Body mass index (BMI) [Ratio] 29 kg/m2 Dr. Tyron Knight Work Phone: [facility] 05-17-2022 09:32-0500 Body weight 69.[address] yTron Knight Work Phone: [facility] 05-17-2022 09:32-0500 Diastolic blood pressure 78 mm[Hg] Dr. Tyron Knight Work Phone: [facility] 05-17-2022 09:32-0500 Heart rate 57 /min Dr. Tyron Knight Work Phone: [facility] 05-17-2022 09:32-0500 SaO2% (BldA) [Mass fraction] 94 % Dr. Tyron Knight Work Phone: [facility] 05-17-2022 09:32-0500 Systolic blood pressure 120 mm[Hg] Dr. Tyron Knight Work Phone: [facility] 05-02-2022 09:22-0500 Body temperature 98 [degF] Dr. Tyron Knight Work Phone: [facility] 05-02-2022 09:22-0500 Diastolic blood pressure 76 mm[Hg] Dr. Tyron Knight Work Phone: [facility] 05-02-2022 09:22-0500 Heart rate 76 /min Dr. Tyron Knight Work Phone: [facility] 05-02-2022 09:22-0500 Respiratory rate 16 /min Dr. Tyron Knight Work Phone: [facility] 05-02-2022 09:22-0500 SaO2% (BldA) [Mass fraction] 98 % Dr. Tyron Knight Work Phone: [facility] 05-02-2022 09:22-0500 Systolic blood pressure 119 mm[Hg] Dr. Tyron Knight Work Phone: [facility] 05-02-2022 07:55-0500 Body mass index (BMI) [Ratio] 29.1 kg/m2 Dr. Tyron Knight Work Phone: [facility] 05-02-2022 07:55-0500 Body weight 69.[address] Tyron Knight Work Phone: [facility] Encounters Encounter Date Encounter Type Care Provider Facility Start: 11-23-2024 ambulatory Tyron Knight Facilit y:[facility] Start: 11-08-2024 End: 11-08-[address] Tyron Knight MD Work Phone: -Ultrasound [facility] Start: 11-08-2024 End: 11-08-[address] Usman Mares MD -Ultrasound [facility] Work Phone: Start: 11-08-2024 End: 11-08-2024 ambulatory Usman Mares Facility:[facility] Start: 11-01-2024 End: 11-01-[address] Tyron Knight MD Work Phone: -Laboratory Start: 11-01-2024 End: 11-01-[address] Usman Mares MD -Laboratory Work Phone: Start: 11-01-2024 End: 11-01-2024 ambulatory Usman Mares Facility:[facility] Start: 06-07-2024 End: 06-08-2024 ambulatory Tyron Knight Facility:[facility] Start: 06-03-2024 End: 06-03-2024 ambulatory Tyron Knight Facility:[facility] Start: 01-09-2024 End: 01-09-2024 ambulatory Tyron Knight Facility:[facility] Start: 12-30-2023 End: 12-30-2023 ambulatory Tyron Knight Facility:[facility] Start: 12-12-2023 End: 12-12-2023 ambulatory Tyron Knight Facility:[facility] Start: 12-12-2023 End: 12-12-2023 ambulatory Usman Mares Facility:[facility] Start: 11-28-2023 End: 11-28-2023 ambulatory Tyron Knight Facility:[facility] Start: 05-01-2023 End: 05-01-[address] Tyron Knight Work Phone: [facility] Work Phone: Start: 05-01-2023 End: 05-01-[address] Tyron Knight Work Phone: [facility] Start: 04-03-2023 End: 04-27-[address] Tyron Knight Work Phone: [facility] Work Phone: Start: 04-03-2023 End: 04-27-[address] Tyron Knight Work Phone: [facility] Work Phone: Start: 02-21-2023 End: 02-21-[address] Tyron Knight Work Phone: [facility] Work Phone: Start: 12-02-2022 End: 12-02-[address] Tyron Knight Work Phone: [facility] Work Phone: Start: 12-02-2022 End: 12-02-[address] Tyron Knight Work Phone: [facility]-Ultrasound, [facility] Work Phone: Start: 11-26-2022 End: 11-26-[address] Tyron Knight Work Phone: [facility] Work Phone: Start: 11-26-2022 End: 11-26-[address] Tyron Knight Work Phone: [facility] Work Phone: Start: 11-21-2022 Non-patient / Non-visit Dr. Tyron Knight Work Phone: [facility] Work Phone: Start: 11-21-2022 End: 11-21-[address] Tyron Knight Work Phone: [facility] Work Phone: Start: 11-21-2022 End: 11-21-[address] Tyron Knight Work Phone: [facility]-Outpatient Bone Densitometry Work Phone: Start: 11-12-2022 End: 11-12-[address] Tyron Knight Work Phone: [facility]-Ultrasound, [facility] Work Phone: Start: 11-07-2022 End: 11-07-[address] Tyron Knight Work Phone: [facility] Work Phone: Start: 11-07-2022 End: 11-07-[address] Tyron Knight Work Phone: [facility] Start: 10-18-2022 End: 10-18-[address] Tyron Knight Work Phone: [facility] Work Phone: Start: 05-17-2022 End: 05-17-[address] Tyron Knight Work Phone: [facility] Start: 05-10-2022 End: 05-10-[address] Tyron Knight Work Phone: [facility] Work Phone: Start: 05-10-2022 End: 05-10-[address] Tyron Knight Work Phone: [facility] Start: 05-02-2022 Non-patient / Non-visit Dr. Tyron Knight Work Phone: [place] Start: 05-02-2022 End: 05-02-2022 Admission to same day surgery center [facility] Start: 03-06-2022 End: 03-06-[address] Tyron Knight Work Phone: [facility] Start: 01-29-2022 End: 01-29-2022 Patient encounter procedure Dr. Tyron Knight Work Phone: [facility] Start: 12-26-2021 End: 12-26-[address] Tyron Knight Work Phone: [facility] Work Phone: Start: 12-26-2021 End: 12-26-[address] Tyron Knight Work Phone: [facility] Start: 12-19-2021 End: 12-19-[address] Tyron Knight Work Phone: [facility] Work Phone: Start: 12-19-2021 End: 12-19-[address] Tyron Knight Work Phone: [facility] Start: 12-19-2021 End: 12-19-[address] Tyron Knight Work Phone: [facility] Start: 10-19-2021 End: 10-19-2021 Patient encounter procedure [facility] Start: 09-27-2021 End: 09-27-2021 Patient encounter procedure [facility] Start: 06-28-2021 End: 06-28-2021 Patient encounter procedure [facility] Start: 04-25-2017 End: 04-25-2017 Ambulatory TY (SANDER HAND) [facility] Start: 04-07-2017 End: 04-07-2017 Ambulatory [facility] Start: 04-01-2017 End: 04-03-2017 Ambulatory TY (SANDER HAND) [facility] Procedures Date Procedure Procedure Detail Performing Clinician Start: 11-08-2024 Ultrasound elastogra phy of liver Dr. Tyron Knight MD Work Phone: Start: 11-01-2024 Vitamin D, 25-hydrox y measurement Dr. Tyron Knight MD Work Phone: Comment on above: Vitamin D StatusDefi ciency: <20 ng/mL (50nmol/L)Insufficiency: 20-30 ng/mL (50-75 nmol/L)Sufficiency: 30-100 ng/mL (75-250 nmol/L)Toxicity: >100 ng/mL (>250 nmol/L) Start: 12-02-2022 Ultrasound elastogra phy of liver Dr. Tyron Knight Work Phone: Start: 11-26-[address] Tyron tao Work Phone: Start: 11-26-[address] Tyron Knight Work Phone: Start: 11-21-2022 Dual energy X-ray absorptiometry Dr. Tyron Knight Work Phone: Start: 11-21-2022 Screening mammography Denis Knight Work Phone: Start: 11-12-2022 Ultrasound elastogra phy of liver Dr. Tyron Knight Work Phone: Start: 12-26-[address] Tyron Knight Work Phone: Start: 12-26-[address] Tyron Knight Work Phone: Start: 10-19-2021 US scan of thyroid Plan of Treatment Date Care Activity Detail Author Start: 11-12-2022 Ultrasound elastography of liver ABD Limited w/ Elastography [facility] Start: 05-02-2022 Egd insert guide wire dilator passage esophagus EGD GUIDE WIRE INSERTION [facility] Start: 05-02-2022 Egd transoral biopsy single/multiple EGD BIOPSY SINGLE/MULTIPLE [facility] Start: 05-02-2022 Patient discharge [facility] Start: 12-19-2021 Aldolase [Enzymatic activity/volume] in Serum or Plasma [facility] Work Phone: Start: 12-19-2021 Angiotensin converting enzyme [Enzymatic activity/volume] in Serum or Plasma [facility] Work Phone: Start: 12-19-2021 Ceruloplasmin [Mass/volume] in Serum or Plasma [facility] Work Phone: Start: 12-19-2021 Copper [Moles/volume] in Serum or Plasma [facility] Work Phone: Start: 12-19-2021 Haptoglobin [Mass/volume] in Serum or Plasma [facility] Work Phone: Start: 12-19-2021 Mitochondria Ab [Presence] in Serum [facility] Work Phone: Start: 12-19-2021 Smooth muscle Ab [Presence] in Serum [facility] Work Phone: Start: 12-19-2021 Vitamin D, 1,25-dihydroxy measurement [facility] Work Phone: Start: 12-19-2021 [facility] Work Phone: Aldolase [Enzymatic activity/volume] in Serum or Plasma [facility] Work Phone: Alkaline phosphatase - bone isoenzyme measurement [facility] Work Phone: Alkaline phosphatase [Enzymatic activity/volume] in Serum or Plasma [facility] Work Phone: Alkaline phosphatase liver isoenzyme measurement [facility] Work Phone: Alpha 1 antitrypsin [Mass/volume] in Serum or Plasma [facility] Work Phone: Angiotensin converti ng enzyme [Enzymatic activity/volume] in Serum or Plasma [facility] Work Phone: Antibody to lupus La protein measurement [facility] Work Phone: Antibody to SS-A measurement [facility] Work Phone: CBC W Auto Different ial panel - Blood [facility] Centromere protein B Ab [Units/volume] in Serum [facility] Work Phone: Ceruloplasmin [Mass/volume] in Serum or Plasma [facility] Work Phone: Chromatin Ab [Units/volume] in Serum or Plasma [facility] Work Phone: Colonoscopy [facility] Copper [Moles/volume ] in Serum or Plasma [facility] Work Phone: DNA double strand Ab [Units/volume] in Serum [facility] Work Phone: Haptoglobin [Mass/vo lume] in Serum or Plasma [facility] Work Phone: Intestinal alkaline phosphatase measurement [facility] Work Phone: Anaid-1 extractable nuc lear Ab [Units/volume] in Serum [facility] Work Phone: Mitochondria Ab [Presence] in Serum [facility] Work Phone: Neutrophil cytoplasm ic Ab.classic [Units/volume] in Serum [facility] Work Phone: P-ANCA measurement [facility] Work Phone: Patient referral [facility] Work Phone: Prothrombin time [facility] [id number] extractable nuclear Ab [Units/volume] in Serum by Immunoassay [facility] Work Phone: Santacruz extractable nu clear Ab [Presence] in Serum [facility] Work Phone: Smooth muscle Ab [Presence] in Serum [facility] Work Phone: T4 free measurement [facility] Thyroid stimulating hormone measurement [facility] Ultrasound elastography [facility] Work Phone: US Abdomen limited [facility] Work Phone: Vitamin D, 1,25-dihy droxy measurement [facility] Work Phone: [facility] Payers Date Payer Category Payer Self-pay [id number] 2021 Medicare [id number] 2021 Unknown [id number] Self-pay SELF PAY BY PATIENT REQUEST [id number] Unknown [id number] Unknown [id number] Unknown [id number] Unknown [id number] Unknown [id number] Unknown [id number] Unknown [id number] Unknown [id number] Unknown [id number] Unknown [id number] Unknown [id number] Unknown [id number] Social History Date Type Detail Facility [facility] Work Phone: Start: 1950 Sex Assigned At Female [facility] Start: 10-16-2021 End: 05-05-2023 Tobacco smoking status [facility] Unknown if ever smoked [facility] Start: 04-29-2024 [facility] Never [facility] (finding) [facility] Goals Date Patient Goal Desired Activity /State Mental Status Date Assessment Result Facility 05-02-2022 Cognitive function Voice/Name [facility] Work Phone: Radiology Diagnostic study note 11-08-2024 Note Date & Type Note Facility 11-08-2024 Radiology Diagnostic study note [facility] [address] [place] [address] ABD Limited w/ Elastography MR#: [id number] Acct: [id number] Name: RACHEL MAY Rep #: [id number] F 74 From: Micheal Ponce MD PCP: Dr. Tyron Knight MD Status: RE G CLI Study:ABD Limited w/ Elastography Date of Exa m: 11/08/24 Exam# [id number] Ordering Dr: Torrey Mares MD PROCEDURE: ABD LIMITED W/ ELASTOGRAPHY REASON FOR EXAM: NAFLD, LIVER FIBROSIS COMPARISON: Prior study dated November 03, 2023. TECHNIQUE: Right upper quadrant abdominal ultrasound. Sofi ElastQ Imaging shear wave elastography for non-invasive assessment of liver tissue stiffness. Sofi EPIQ Elite. FINDINGS: LIVER: Size: Unremarkable Length: 13.1 cm Echotexture: Normal Contour: Normal Lesions: None identified Elastography: EQI Med: 8.5 kPa EQI Med Steve: 1.67 m/s IQR/Med: 16 %* GALLBLADDER: No stones sludge wall thickening or tenderness. COMMON BILE DUCT: Normal measuring 6 mm . PANCREAS: Normal Visualized portions of the right kidney are unremarkable. No right upper quadrant ascites. US/ABD Limited w/ Elastography IMPRESSION: [id number] degree of hepatic fibrosis. Reference Values: SRU <1.37 m/s (5.7kPa): No to mild fibrosis 1.37 m/s - 2.2 m/s: Moderate to severe fibrosis >2.2 m/s (15kPa): Significant fibrosis / cirrhosis METAVIR Score F2 or higher: 1.34 m/s (5.7kPa) F3 or higher: 1.55 m/s (7.3kPa) F4: 1.80 m/s (10kPa) * If the IQR/Med is >30%, the variance in the measurements is a large and the accuracy of the measurement may be in question. Reading Location: [place] [address] CC: Dr. Tyron Knight MD; Dr. Usman Mares MD ~ Marriage Counselor: Signed [facility] Evaluation note Note Date & Type Note Facility Evaluation note No assessment information availa ble [facility] Work Phone: Evaluation note Note Date & Type Note Facility Evaluation note Diagnosis Onset Date Elevated LFTs acute [facility] Work Phone: Evaluation note Note Date & Type Note Facility Evaluation note Diagnosis Onset Date Obesity acute Screening for colon cancer a cute Dysphagia chronic STRATTON (nonalcoholic steatohepatitis) chronic Elevated LFTs chronic GERD (gastroesophageal reflux disease) chronic STRATTON (nonalcoholic steatohepatitis) chronic [facility] Work Phone: Evaluation note Note Date & Type Note Facility Evaluation note Diagnosis Onset Date GERD (gastroesophageal reflux disease) chronic STRATTON (nonalcoholic steatohepatitis) chronic [facility] Work Phone: Reason for referral (narrative) Note Date & Type Note Facility Reason for referral (narrative) No reason for referral information available [facility] Work Phone: Summary Purpose Family History No Family History Records Found Relationship Condition Age at Onset Recorded Date/T nivia aunt Malignant neoplasm of breast Unknown Advance Directives No Advanced Directives Records Found Advance Directive Response Recorded Date/ Time Name of Medical Power of Graphics Software Engineer NIC MAY April 30, 2022 2:47pm Living Will Yes April 30 3 2:47pm Power of Graphics Software Engineer Yes April 30, 2 023 2:47pm Advance Directive Response Recorded Date/ Time Living Will Yes April 30 3 3:47pm Power of Graphics Software Engineer Yes April 30, 2 023 3:47pm Advance Directive Response Recorded Date/ Time Living Will Yes April 30 3 2:47pm Power of Graphics Software Engineer Yes April 30, 2 023 2:47pm Advance Directive Response Recorded Date/ Time Living Will Yes May 05 4 3:10pm Power of Graphics Software Engineer Yes May 05, 2 024 3:10pm Chief Complaint and Reason for Visit Chief Complaint THYROID NODULE Chief Complaint THYROID NODULE ELEVATED LIVER FUNCTION E-ORDER ELEVATED LFTS Reason for Visit Elevated LFTs Chief Complaint THYROID NODULE ELEVATED LIVER FUNCTION E-ORDER Reason for Visit Elevated LFTs Chief Complaint 2 MO FU 2 WK FU Reason for Visit Obesity Screening for colon cancer Dysphagia STRATTON (nonalcoholic steatohepatitis) Elevated LFTs GERD (gastroesophageal reflux disease) STRATTON (nonalcoholic steatohepatitis) Chief Complaint WEIGH IN NONALCOHOLIC STEATOHEPATITIS (STRATTON) Chief Complaint WEIGH IN NONALCOHOLIC STEATOHEPATITIS (STRATTON) SCREENING Amb Documentation ABNORMAL MAMMOGRAM FINDINGS Chief Complaint WEIGH IN NONALCOHOLIC STEATOHEPATITIS (STRATTON) SCREENING Amb Documentation ABNORMAL MAMMOGRAM FINDINGS STRATTON Chief Complaint 6 MO FU OVERWEIGHT Reason for Visit GERD (gastroesophage al reflux disease) STRATTON (nonalcoholic steatohepatitis) Chief Complaint Admit Date MASLD, liver fibrosis November 08, 2024 7: 12am Additional Source Comments INFORMATION SOURCE (unrecogn ized section and content) DATE CREATED AUTHOR 10/21/2017 [facility] DATE CREATED AUTHOR AUTHOR'S ORGANIZ ATION 11/20/2024 [facility] Goals (unrecognized section and content) Goals may be documented in a n alternate sectionGoals may be documented in an alternate sectionGoals may be documented in an alternate sectionGoals may be documented in an alternate sectionGoals may be documented in an alternate sectionGoals may be documented in an alternate sectionGoals may be documented in an alternate sectionGoals may be documented in an alternate sectionGoals may be documented in an alternate sectionGoals may be documented in an alternate sectionGoals may be documented in an alternate sectionGoals may be documented in an alternate section Care Teams (unrecognized sec tion and content) Team Status: Active Member Role Status Dates Dr. Tyron Ortega MD Family Provider Active Dr. Tyron Knight MD Primary Care Provider Active Team Status: Inactive Member Role Status Dates Dr. Tyron Knight MD Primary Care Provider, Referr ing Provider Active Dr. Estuardo Anand DO Attending Provider Active Team Status: Inactive Member Role Status Dates Dr. Tyron Knight MD Primary Care Provider, Referr ing Provider Active Emilie Robertson SANDER HAND, SANDER HAND-C Attending Provider Active Team Status: Active Member Role Status Dates Dr. Tyron Knight MD Primary Care Provider Active Dr. Estuardo Anand DO Attending Provider, Other Prov ider Active Tyron Knight MD Referring Provider Active Team Status: Inactive Member Role Status Dates Dr. Tyron Knight MD Primary Care Provider, Attend ing Provider Active Team Status: Inactive Member Role Status Dates Dr. Tyron Knight MD Primary Care Provider Active Dr. Estuardo Anand DO Attending Provider Active Tyron Knight MD Referring Provider Active Team Status: Inactive Member Role Status Dates Dr. Tyron Knight MD Primary Care Pr ovider, Attending Provider, Referring Provider Active Team Status: Active Member Role Status Dates Dr. Tyron Knight MD Primary Care Provider Active Dr. Estuardo Anand DO Attending Provider, Referring Provider Active Team Status: Active Member Role Status Dates Dr. Tyron Knight MD Primary Care Provider Active Phoebe Boyd Attending Provider Active Team Status: Inactive Member Role Status Dates Dr. Tyron Knight MD Primary Care Provider Active Dr. Estuardo Anand DO Attending Provider, Referring Provider Active Team Status: Active Member Role Status Dates Dr. Tyron Knight MD Primary Care Pr ovider, Attending Provider, Referring Provider Active Team Status: Inactive Member Role Status Dates Dr. Tyron Knight MD Primary Care Provider, Referr ing Provider Active Dr. Usman Mares MD Attending Provider Active Team Status: Inactive Member Role Status Dates Dr. Tyron Knight MD Primary Care Provider Active Dr. Usman Mares MD Attending Provider, Referring P rodarylder Active Team Status: Active Member Role/Relationship Status Dates Dr. Tyron Knight MD Primary Care Provider Active Team Status: Inactive Member Role/Relationship Status Dates Dr. Tyron Knight MD Primary Care Provider Active Start: November 01, 2024 End: November 01, 2024 Dr. Usman Mares MD Attending Provider Active Start: November 01, 2024 End: November 01, 2024 Dr. Usman Mares MD Referring Provider Active Start: November 01, 2024 End: November 01, 2024 Team Status: Inactive Member Role/Relationship Status Dates Dr. Tyron Knight MD Primary Care Provider Active Start: November 08, 2024 End: November 08, 2024 Dr. Usman Mares MD Attending Provider Active Start: November 08, 2024 End: November 08, 2024 Dr. Usman Mares MD Referring Provider Active Start: November 08, 2024 End: November 08, 2024 FOR RECORDS PERTAINING TO PATIENTS WHO ARE [...] BE BASED ON THE PRIMARY CLINICAL RECORDS. [facility] Hospital[facility]. provides no warranty or guarantee of the accuracy or completeness of information in this document.
--- OUTSIDE RECORDS SUMMARY | 2024-11-23 17:53 | XMS RPT_ITS | CCD ---
Author Organization [facility] CliniSyoh Care Team Providers Care Oxygen Equipment Technician Name Role Phone THORPE, TY (DIRECTOR OPERATIONS) Unavailable Unavailable ROSS, RYAN Unavailable Unavailable ROSS, RYAN Unavailable Unavailable THORPE, TY (DIRECTOR OPERATIONS) Unavailable Unavailable THORPE, TY (DIRECTOR OPERATIONS) Unavailable Unavailable ROSS, RYAN Unavailable Unavailable Dr. Tyron Knight Primary Care Provider Dr. Tyron Knight Referring Provider FriendDr. Marte Attending Provider Dr. Tyron Knight Primary Care Provider Dr. Tyron Knight Referring Provider 1([facility])[phone] Estuardo Anand Attending Provider 1([facility])[phone] Dr. Estuardo Anand Other Provider 1([facility])[phone] MD Tyron Knight Referring Provider Unavailable Marcelo DIRECTOR OPERATIONS, DIRECTOR OPERATIONS-C Emilie Gale Attending Provider [phone] Dr. Tyron Knight Primary Care Provider Dr. Tyron Knight Referring Provider Dr. Estuardo Anand Attending Provider Phoebe Boyd Attending Provider Dr. Tyron Jerome Primary Care Provider Dr. Tyron Knight Referring Provider Dr. Usman Mares Attending Provider 1([facility])[phone] Dr. Tyron Knight MD Primary Care Provider Dr. Usman Mares MD Attending Provider Dr. Usman Mares MD Referring Provider Tyron Knight E Primary Care Unavailable Doris Maria Attending [...] Translations: [PHENYTOIN SODIUM EXTENDED] Drug Allergy 06-30-2006 [facility] Repository (14 sources) trimethoprim; Translations: [TRIMETHOPRIM] Drug Allergy 06-30-2006 [facility] Repository (12 sources) Phenytoin Drug Allergy 10-16-2021 [facility] (1 source) Phenytoin Drug Allergy 06-07-2024 [facility] Repository Medications Current Medications Medication Drug Class(es) [...] Elastographyo n 11-08-2024 ABD Limited w/ Elastography [facility] Imaging Services [address] [place] [address] [id number] ABD Limited w/ Elastography MR#: [id number] Acct: [id number] Name: RACHEL MAY Rep #: [id number] : 1950 F 74 From: [place] yugn MD PCP: Dr. Tyron Knight MD Status: REG CLI Study: ABD Limited w/ Elastography Date of Exam: 10/26 08/20 Exam# [id number] Ordering Dr: Usman Mares MD PROCEDURE: ABD [...] quadrant ascites. US/ABD Limited w/ Elastography IMPRESSION: Iaqr-ie-rymprceo degree of hepatic fibrosis. Reference Values: SRU [...] measurement may be in question. Reading Location: [place] [address] CC: Dr. Tyron Knight MD; Dr. Usman Mares MD Director Sales Training: Signed Normal [facility] Absolute lymphocyte countOrd ered By: Usman Mares on 11-01-2024 Lymphocytes Auto (Unsp spec) [#/Vol] 1.44 10*3/uL 0.83-4.51 [facility] Absolute neutrophil countOrd ered By: Usman Mares on 11-01-2024 Neutrophils (Bld) [#/Vol] 1.6 10*3/uL Low 2.0-7.7 [facility] Anion gap in Serum or Plasma Ordered By: Usman Mares on 11-01-2024 Anion gap [Moles/Vol] 10 mmol/L 5-15 [facility] Automated lymphocyte count a s percentage of total leukocytesOrdered By: Usman Mares on 11-01-2024 Lymphocytes/100 WBC Auto (Unsp spec) 36.8 % 19-41 [facility] BUN/creatinine ratioOrdered By: Usman Mares on 11-01-2024 Urea nitrogen/Creatinine [Mass ratio] 19.1 mg/mg 10-20 [facility] Basophil percentageOrdered B y: Usman Mares on 11-01-2024 Basophils/100 WBC (Bld) 1.5 % High 0-1 [facility] Bilirubin, totalOrdered By: Usman Mares on 11-01-2024 Bilirubin [Mass/Vol] 0.60 mg/dL 0.00-1.30 [facility] CBC W/Diff, Automatedon 07-0 7-2025 Absolute Lymph 1.44 X10 3/uL Normal 0.83-4.51 [facility] Comment on above: Order Comment: SEND CBCD,CMP,TSH,FT4 TO Performed By: #### L 501.9520, L500.4050, L501.6710, L100.0100, L300.3900, L506.0400, L501.9985 ####[facility] [address] [place], [address] Absolute Neut 1.6 X10 3/uL Low 2.0-7.7 [facility] Comment on above: Order Comment: SEND CBCD,CMP,TSH,FT4 TO Performed By: #### L 501.9520, L500.4050, L501.6710, L100.0100, L300.3900, L506.0400, L501.9985 ####[facility] [address] [place], [address] Basophils/100 WBC (Bld) 1.5 % High 0-1 [facility] Comment on above: Order Comment: SEND CBCD,CMP,TSH,FT4 TO Performed By: #### L 501.9520, L500.4050, L501.6710, L100.0100, L300.3900, L506.0400, L501.9985 ####[facility] [address] [place], [address] Eosinophils/100 WBC (Bld) 4.6 % Normal 0-5 [facility] Comment on above: Order Comment: SEND CBCD,CMP,TSH,FT4 TO Performed By: #### L 501.9520, L500.4050, L501.6710, L100.0100, L300.3900, L506.0400, L501.9985 ####[facility] [address] [place], [address] Erythrocyte distribution width (RBC) [Ratio] 12.3 % Normal 11.6-14.6 [facility] Comment on above: Order Comment: SEND CBCD,CMP,TSH,FT4 TO Performed By: #### L 501.9520, L500.4050, L501.6710, L100.0100, L300.3900, L506.0400, L501.9985 ####[facility] [address] [facility]. [place], [place], [phone] Hematocrit (Bld) [Volume fraction] 44.8 % Normal 37-47 [facility] Comment on above: Order Comment: SEND CBCD,CMP,TSH,FT4 TO Performed By: #### L 501.9520, L500.4050, L501.6710, L100.0100, L300.3900, L506.0400, L501.9985 ####[facility] [address] [facility]. [place], [place], [phone] Hemoglobin (Bld) [Mass/Vol] 15.5 g/dL High 12.0-15.0 [facility] Comment on above: Order Comment: SEND CBCD,CMP,TSH,FT4 TO Performed By: #### L 501.9520, L500.4050, L501.6710, L100.0100, L300.3900, L506.0400, L501.9985 ####[facility] [address] [facility]. [place], [place], [phone] IG% 0.000 Normal 0.0-0.9 [facility] Comment on above: Order Comment: SEND CBCD,CMP,TSH,FT4 TO Result Comment: IG% - Immature Granulocytes (promyelocytes, myelocytes and metamyelocytes) > 1% indicates that a LEFT SHIFT is Present. Performed By: #### L 501.9520, L500.4050, L501.6710, L100.0100, L300.3900, L506.0400, L501.9985 ####[facility] [address] [place], [address] Lymphocytes/100 WBC (Bld) 36.8 % Normal 19-41 [facility] Comment on above: Order Comment: SEND CBCD,CMP,TSH,FT4 TO Performed By: #### L 501.9520, L500.4050, L501.6710, L100.0100, L300.3900, L506.0400, L501.9985 ####[facility] [address] [facility] [place], [address] MCH (RBC) [Entitic mass] 30.5 pg Normal 27.0-32.0 [facility] Comment on above: Order Comment: SEND CBCD,CMP,TSH,FT4 TO Performed By: #### L 501.9520, L500.4050, L501.6710, L100.0100, L300.3900, L506.0400, L501.9985 ####[facility] [address] [facility] [place], [address] MCHC (RBC) [Mass/Vol] 34.6 g/dL Normal 32-36 [facility] Comment on above: Order Comment: SEND CBCD,CMP,TSH,FT4 TO Performed By: #### L 501.9520, L500.4050, L501.6710, L100.0100, L300.3900, L506.0400, L501.9985 ####[facility] [address] [facility] [place], [address] MCV (RBC) [Entitic vol] 88.0 fL Normal 81-99 [facility] Comment on above: Order Comment: SEND CBCD,CMP,TSH,FT4 TO Performed By: #### L 501.9520, L500.4050, L501.6710, L100.0100, L300.3900, L506.0400, L501.9985 ####[facility] [address] [place], [address] Monocytes/100 WBC (Bld) 15.6 % High 0-10 [facility] Comment on above: Order Comment: SEND CBCD,CMP,TSH,FT4 TO Performed By: #### L 501.9520, L500.4050, L501.6710, L100.0100, L300.3900, L506.0400, L501.9985 ####[facility] [address] [place], [address] Neutrophils/100 WBC (Bld) 41.5 % Low 47-70 [facility] Comment on above: Order Comment: SEND CBCD,CMP,TSH,FT4 TO Performed By: #### L 501.9520, L500.4050, L501.6710, L100.0100, L300.3900, L506.0400, L501.9985 ####[facility] [address] [place], [address] Nucleated RBC (Bld) [#/Vol] 0 10*3/uL Normal 0-5 [facility] Comment on above: Order Comment: SEND CBCD,CMP,TSH,FT4 TO Performed By: #### L 501.9520, L500.4050, L501.6710, L100.0100, L300.3900, L506.0400, L501.9985 ####[facility] [address] [place], [address] Platelet mean volume (Bld) [Entitic vol] 10.7 fL Normal 6.2-12.0 [facility] Comment on above: Order Comment: SEND CBCD,CMP,TSH,FT4 TO Performed By: #### L 501.9520, L500.4050, L501.6710, L100.0100, L300.3900, L506.0400, L501.9985 ####[facility] [address] [place], [address] Platelets (Bld) [#/Vol] 227 10*3/uL Normal 150-450 [facility] Comment on above: Order Comment: SEND CBCD,CMP,TSH,FT4 TO Performed By: #### L 501.9520, L500.4050, L501.6710, L100.0100, L300.3900, L506.0400, L501.9985 ####[facility] [address] [place], [address] RBC (Bld) [#/Vol] 5.09 10*6/uL Normal 4.2-5.4 [facility] Comment on above: Order Comment: SEND CBCD,CMP,TSH,FT4 TO Performed By: #### L 501.9520, L500.4050, L501.6710, L100.0100, L300.3900, L506.0400, L501.9985 ####[facility] [address] [place], [address] RDW SD 39.5 fl Normal 35.1-43.9 [facility] Comment on above: Order Comment: SEND CBCD,CMP,TSH,FT4 TO Performed By: #### L 501.9520, L500.4050, L501.6710, L100.0100, L300.3900, L506.0400, L501.9985 ####[facility] [address] [place], [address] WBC (Bld) [#/Vol] 3.9 10*3/uL Low 4.4-11.0 [facility] Comment on above: Order Comment: SEND CBCD,CMP,TSH,FT4 TO Performed By: #### L 501.9520, L500.4050, L501.6710, L100.0100, L300.3900, L506.0400, L501.9985 ####[facility] [address] [place], [address] Absolute Neut Normal 2.0-7.7 [facility] Comment on above: Order Comment: Order Date: 10/28/24 Order Info: 0184-1 - CBCD Result Comment: DUP Performed By: #### L 100.0100, L500.4100 #### [facility] [address] [place], [address] HCT Normal 37-47 [facility] Comment on above: Order Comment: Order Date: 10/28/24 Order Info: 0184-1 - CBCD Result Comment: DUP Performed By: #### L 100.0100, L500.4100 #### [facility] [address] [place], [address] HGB Normal 12.0-15.0 [facility] Comment on above: Order Comment: Order Date: 10/28/24 Order Info: 018- - CBCD Result Comment: DUP Performed By: #### L 100.0100, L500.4100 #### [facility] [address] [place], [address] MCH Normal 27.0-32.0 [facility] Comment on above: Order Comment: Order Date: 10/28/24 Order Info: 0184-1 - CBCD Result Comment: DUP Performed By: #### L 100.0100, L500.4100 #### [facility] [address] [place], [address] MCHC Normal 32-36 [facility] Comment on above: Order Comment: Order Date: 10/28/24 Order Info: 0184-1 - CBCD Result Comment: DUP Performed By: #### L 100.0100, L500.4100 #### [facility] [address] [place], [address] MCV Normal 81-99 [facility] Comment on above: Order Comment: Order Date: 10/28/24 Order Info: 0184-1 - CBCD Result Comment: DUP Performed By: #### L 100.0100, L500.4100 #### [facility] [address] [place], [address] NEUT% Normal 47-70 [facility] Comment on above: Order Comment: Order Date: 10/28/24 Order Info: 0184-1 - CBCD Result Comment: DUP Performed By: #### L 100.0100, L500.4100 #### [facility] [address] [place], [address] PLT Normal 150-450 [facility] Comment on above: Order Comment: Order Date: 10/28/24 Order Info: 0184-1 - CBCD Result Comment: DUP Performed By: #### L 100.0100, L500.4100 #### [facility] [address] [place], [address] RBC Normal 4.2-5.4 [facility] Comment on above: Order Comment: Order Date: 10/28/24 Order Info: 0184-1 - CBCD Result Comment: DUP Performed By: #### L 100.0100, L500.4100 #### [facility] [address] [place], [address] RDW CV Normal 11.6-14.6 [facility] Comment on above: Order Comment: Order Date: 10/28/24 Order Info: 0184-1 - CBCD Result Comment: DUP Performed By: #### L 100.0100, L500.4100 #### [facility] [address] [place], [address] RDW SD Normal 35.1-43.9 [facility] Comment on above: Order Comment: Order Date: 10/28/24 Order Info: 0184-1 - CBCD Result Comment: DUP Performed By: #### L 100.0100, L500.4100 #### [facility] [address] [place], [place], [phone] WBC Normal 4.4-11.0 [facility] Comment on above: Order Comment: Order Date: 10/28/24 Order Info: 0184-1 - CBCD Result Comment: DUP Performed By: #### L 100.0100, L500.4100 #### [facility] [address] [place], [address] CRPon 11-01-2024 C-REACTIVE PROT < 3.00 Normal 0.0-3.0 [facility] Comment on above: Order Comment: SEND CBCD,CMP,TSH,FT4 TO Performed By: #### L 501.9520, L500.4050, L501.6710, L100.0100, L300.3900, L506.0400, L501.9985 ####[facility] [address] [place], [place], [phone] Calculated very low density lipoprotein (VLDL) cholesterol measurementOrdered By: Tyron Knight on 11-01-2024 Calculated very low density lipoprotein (VLDL) cholesterol measurement 12 mg/dL 5-40 [facility] Carbon dioxide, total [Moles /volume] in Central venous bloodOrdered By: Usman Mares on 11-01-2024 CO2 [Moles/Vol] 24.6 mmol/L 21.0-32.0 [facility] Chloride assayOrdered By: Torrey Mares on 11-01-2024 Chloride [Moles/Vol] 105 mmol/L 98-108 [facility] Comprehensive Metabolic Prof ilon 11-01-2024 Albumin [Mass/Vol] 4.0 g/dL Normal 3.4-4.8 [facility] Comment on above: Order Comment: SEND CBCD,CMP,TSH,FT4 TO Performed By: #### L 501.9520, L500.4050, L501.6710, L100.0100, L300.3900, L506.0400, L501.9985 ####[facility] [address] [place], [address] Albumin/Globulin [Mass ratio] 1.3 {ratio} Normal 0.9-2.4 [facility] Comment on above: Order Comment: SEND CBCD,CMP,TSH,FT4 TO Performed By: #### L 501.9520, L500.4050, L501.6710, L100.0100, L300.3900, L506.0400, L501.9985 ####[facility] [address] [place], [address] ALK PHOS 194 U/L High 35-104 [facility] Comment on above: Order Comment: SEND CBCD,CMP,TSH,FT4 TO Performed By: #### L 501.9520, L500.4050, L501.6710, L100.0100, L300.3900, L506.0400, L501.9985 ####[facility] [address] [place], [address] ALT [Catalytic activity/Vol] 51 U/L High <=34 [facility] Comment on above: Order Comment: SEND CBCD,CMP,TSH,FT4 TO Performed By: #### L 501.9520, L500.4050, L501.6710, L100.0100, L300.3900, L506.0400, L501.9985 ####[facility] [address] [place], [address] AST [Catalytic activity/Vol] 48 U/L High <=31 [facility] Comment on above: Order Comment: SEND CBCD,CMP,TSH,FT4 TO Performed By: #### L 501.9520, L500.4050, L501.6710, L100.0100, L300.3900, L506.0400, L501.9985 ####[facility] [address] [place], [place], [phone] Bilirubin [Mass/Vol] 0.60 mg/dL Normal 0.00-1.30 [facility] Comment on above: Order Comment: SEND CBCD,CMP,TSH,FT4 TO Performed By: #### L 501.9520, L500.4050, L501.6710, L100.0100, L300.3900, L506.0400, L501.9985 ####[facility] [address] [place], [place], [id number] BUN/CRE 19.1 RATIO Normal 10-20 [facility] Comment on above: Order Comment: SEND CBCD,CMP,TSH,FT4 TO Performed By: #### L 501.9520, L500.4050, L501.6710, L100.0100, L300.3900, L506.0400, L501.9985 ####[facility] [address] [place], [place], [phone] Calcium [Mass/Vol] 9.3 mg/dL Normal 7.6-11.0 [facility] Comment on above: Order Comment: SEND CBCD,CMP,TSH,FT4 TO Performed By: #### L 501.9520, L500.4050, L501.6710, L100.0100, L300.3900, L506.0400, L501.9985 ####[facility] [address] [place], [address] Chloride [Moles/Vol] 105 mmol/L Normal 98-108 [facility] Comment on above: Order Comment: SEND CBCD,CMP,TSH,FT4 TO Performed By: #### L 501.9520, L500.4050, L501.6710, L100.0100, L300.3900, L506.0400, L501.9985 ####[facility] [address] [place], [place], [phone] CO2 [Moles/Vol] 24.6 mmol/L Normal 21.0-32.0 [facility] Comment on above: Order Comment: SEND CBCD,CMP,TSH,FT4 TO Performed By: #### L 501.9520, L500.4050, L501.6710, L100.0100, L300.3900, L506.0400, L501.9985 ####[facility] [address] [place], [address] Creatinine [Mass/Vol] 0.76 mg/dL Normal 0.70-1.20 [facility] Comment on above: Order Comment: SEND CBCD,CMP,TSH,FT4 TO Performed By: #### L 501.9520, L500.4050, L501.6710, L100.0100, L300.3900, L506.0400, L501.9985 ####[facility] [address] [place], [place], [phone] GAP 10 Normal 5-15 [facility] Comment on above: Order Comment: SEND CBCD,CMP,TSH,FT4 TO Performed By: #### L 501.9520, L500.4050, L501.6710, L100.0100, L300.3900, L506.0400, L501.9985 ####[facility] [address] [facility] [address] [place], [place], [address] GFR/1.73 sq M.predicted among non-blacks MDRD (S/P/Bld) [Vol rate/Area] 83 mL/min/{1.73_m2} Normal >60 [facility] Comment on above: Order Comment: SEND CBCD,CMP,TSH,FT4 TO Result Comment: mL/m in/1.73m2 CKD-EPI Creatinine Equation (2020) Performed By: #### L 501.9520, L500.4050, L501.6710, L100.0100, L300.3900, L506.0400, L501.9985 ####[facility] [address] [place], [address] Globulin (S) [Mass/Vol] 3.0 g/dL Normal 2.2-4.2 [facility] Comment on above: Order Comment: SEND CBCD,CMP,TSH,FT4 TO Performed By: #### L 501.9520, L500.4050, L501.6710, L100.0100, L300.3900, L506.0400, L501.9985 ####[facility] [address] [place], [address] Glucose [Mass/Vol] 96 mg/dL Normal 70-99 [facility] Comment on above: Order Comment: SEND CBCD,CMP,TSH,FT4 TO Performed By: #### L 501.9520, L500.4050, L501.6710, L100.0100, L300.3900, L506.0400, L501.9985 ####[facility] [address] [place], [address] Potassium [Moles/Vol] 4.1 mmol/L Normal 3.3-5.1 [facility] Comment on above: Order Comment: SEND CBCD,CMP,TSH,FT4 TO Performed By: #### L 501.9520, L500.4050, L501.6710, L100.0100, L300.3900, L506.0400, L501.9985 ####[facility] [address] [place], [address] Sodium [Moles/Vol] 140 mmol/L Normal 133-145 [facility] Comment on above: Order Comment: SEND CBCD,CMP,TSH,FT4 TO Performed By: #### L 501.9520, L500.4050, L501.6710, L100.0100, L300.3900, L506.0400, L501.9985 ####[facility] [address] [place], [address] T PROT 7.0 g/dL Normal 5.9-8.4 [facility] Comment on above: Order Comment: SEND CBCD,CMP,TSH,FT4 TO Performed By: #### L 501.9520, L500.4050, L501.6710, L100.0100, L300.3900, L506.0400, L501.9985 ####[facility] [address] [place], [address] Urea nitrogen [Mass/Vol] 15 mg/dL Normal 4-19 [facility] Comment on above: Order Comment: SEND CBCD,CMP,TSH,FT4 TO Performed By: #### L 501.9520, L500.4050, L501.6710, L100.0100, L300.3900, L506.0400, L501.9985 ####[facility] [address] [place], [place], [phone] Eosinophil percentageOrdered By: Usman Mares on 11-01-2024 Eosinophils/100 WBC (Bld) 4.6 % 0-5 [facility] Erythrocyte distribution wid th ratioOrdered By: Usman Mares on 11-01-2024 Erythrocyte distribution width (RBC) [Ratio] 12.3 % 11.6-14.6 [facility] Erythrocyte distribution wid th standard deviationOrdered By: Usmancarlos Mares on 11-01-2024 Erythrocyte distribution width (RBC) [Ratio] 39.5 fl 35.1-43.9 [facility] Ferritinon 11-01-2024 Ferritin [Mass/Vol] 223 ng/mL Normal 22-378 [facility] Comment on above: Order Comment: Order Date: 10/28/24 Order Info: [id number] - CMP Order Date: 06/30/24 Order Info: [id number] - LIPID Order Info: [id number] - TSH Order Info: [id number] - FE Order Info: [id number] - SAMPSON Order Info: [id number] - T4F Performed By: #### L 503.6150, L503.6550 #### [facility] [address] [place], [place], [id number] Glomerular filtration rate ( GFR) estimation/1.73 sq m using serum, plasma, or whole bOrdered By: Usman Mares on 11-01-2024 GFR/1.73 sq M.predicted among non-blacks MDRD (S/P/Bld) [Vol rate/Area] 83 mL/min/{1.73_m2} >60 [facility] Comment on above: mL/min/1.73m2 CKD-EP I Creatinine Equation (2020) Hematocrit Auto (Bld) [Volum e fraction]Ordered By: Usman Mares on 11-01-2024 Hematocrit (Bld) [Volume fraction] 44.8 % 37-47 [facility] Hemoglobin A1con 11-01-2024 HbA1c (Bld) [Mass fraction] 5.4 % Normal <=5.6 [facility] Comment on above: Order Comment: SEND CBCD,CMP,TSH,FT4 TO Result Comment: Norm al < 5.7 % Prediabetic 5.7 - 6.4 % Diabetic >or= 6.5 % Please note range changes. Performed By: #### L 501.9520, L500.4050, L501.6710, L100.0100, L300.3900, L506.0400, L501.9985 ####[facility] [address] [place], [place], [phone] Hemoglobin A1c percentageOrd ered By: Usman Mares on 11-01-2024 HbA1c (Bld) [Mass fraction] 5.4 % <5.7 [facility] Comment on above: Normal < 5.7 % Predi abetic 5.7 - 6.4 % Diabetic >or= 6.5 % Please note range changes. Hemoglobin measurementOrdere d By: Usman Mares on 11-01-2024 Hemoglobin (Bld) [Mass/Vol] 15.5 g/dL High 12.0-15.0 [facility] Immature granulocytes/100 WB C Auto (Bld)Ordered By: Usman Mares on 11-01-2024 Immature granulocytes/100 WBC (Bld) 0.000 % 0.0-0.9 [facility] Comment on above: IG% - Immature Granu locytes (promyelocytes, myelocytes and metamyelocytes) > 1% indicates that a LEFT SHIFT is Present. International normalized rat io (INR) calculationOrdered By: Usman Mares on 11-01-2024 INR Coag (Bld) [Relative time] 1.0 {INR} [facility] Ironon 11-01-2024 Iron [Mass/Vol] 102 ug/dL Normal 50-170 [facility] Comment on above: Order Comment: Order Date: 10/28/24 Order Info: [id number] - CMP Order Date: 06/30/24 Order Info: [id number] - LIPID Order Info: [id number] - TSH Order Info: [id number] - FE Order Info: [id number] - SAMPSON Order Info: [id number] - T4F Performed By: #### L 503.6150, L503.6550 #### [facility] [address] [place] [address], [address] Iron measurement (mass/mass) Ordered By: Tyron Knight on 11-01-2024 Iron (Unsp spec) [Mass/Mass] 102 ug/dL 50-170 [facility] LDL calc ser/plasOrdered By: Tyron Knight on 11-01-2024 Cholesterol in LDL [Mass/Vol] 77 mg/dL [facility] Comment on above: Peartinfui=380-147 m g/dL & Higher Ydnl=745 mg/dL or greater Laboratory - Chemistry and C hemistry - challengeOrdered By: Usman Mares on 11-01-2024 AST [Catalytic activity/Vol] 48 U/L High <32 [facility] Lipid Profileon 11-01-2024 CHOL:HDL 2.74 Normal [facility] Comment on above: Order Comment: Order Date: 10/28/24 Order Info: 0786-1 - CMP Order Date: 06/30/24 Order Info: [id number] - LIPID Order Info: 3 - TSH Order Info: 2497-07 FE Order Info: 2275-07 - SAMPSON Order Info: 3023-10 T4 Performed By: #### L 100.0100, L500.4100 #### [facility] [address] [place], [address] Cholesterol [Mass/Vol] 141 mg/dL Normal <=200 [facility] Comment on above: Order Comment: Order Date: 10/28/24 Order Info: 0786-1 - CMP Order Date: 06/30/24 Order Info: [id number] - LIPID Order Info: 3 - TSH Order Info: 2497-07 FE Order Info: 2275-07 - SAMPSON Order Info: 3023-10 T4 Result Comment: Chol esterol level, Desirable <200 mg/dL Borderline high cholesterol 200-239 mg/dL High cholesterol >=240 mg/dL Recommendations of the NCEP Adult Treatment Panel for the following risk-cutoff thresholds for the [place] population. Performed By: #### L 100.0100, L5.4100 #### [facility] [address] [place], [address] Cholesterol in HDL [Mass/Vol] 51 mg/dL Normal [facility] Comment on above: Order Comment: Order Date: 10/28/24 Order Info: [id number] - CMP Order Date: 06/30/24 Order Info: [id number] - LIPID Order Info: 3 - TSH [...] Performed By: #### L 100.0100, L500.4100 #### [facility] [address] [place], [place], [address] Cholesterol in LDL [Mass/Vol] 77 mg/dL Normal [facility] Comment on above: Order Comment: Order Date: 10/28/24 Order Info: [id number] - CMP Order Date: 06/30/24 Order Info: [id number] - LIPID Order Info: [id number] - TSH Order Info: 4 - FE Order Info: 4 - SAMPSON Order Info: 7 - T4F Result Comment: Bord zdmthj=390-344 mg/dL Higher Agmj=194 mg/dL or greater Performed By: #### L 100.0100, L500.4100 #### [facility] [address] [place], [place], [id number] (237) Cholesterol in VLDL [Mass/Vol] 12 mg/dL Normal 5-40 [facility] Comment on above: Order Comment: Order Date: 10/28/24 Order Info: [id number]- - CMP Order Date: 06/30/24 Order Info: [id number] - LIPID Order Info: 3 - TSH Order Info: [id number] - FE Order Info: [id number] - SAMPSON Order Info: 7 - T4F Performed By: #### L 100.0100, L500.4100 #### [facility] [address] [place], [place], [address] (958) Triglyceride [Mass/Vol] 61 mg/dL Normal [facility] Comment on above: Order Comment: Order Date: 10/28/24 Order Info: [id number] - CMP Order Date: 06/30/24 Order Info: [id number] - LIPID Order Info: 6-3 - TSH Order Info: [id number] - FE Order Info: 2274 - SAMPSON Order Info: 302-7 - T4F Result Comment: The drugs N-Acetylcysteine and Metamizole may falsely depress this assay. Normal range: <150 mg/dL Borderline High: 150-199 mg/dL High: 200-499 mg/dL Very High: >500 mg/dL Performed By: #### L 100.0100, L500.4100 #### [facility] [address] [place], [address] MCV (mean corpuscular volume ) determinationOrdered By: Usman Mares on 11-01-2024 MCV (RBC) [Entitic vol] 88.0 fL 81-99 [facility] Mean corpuscular hemoglobin (MCH) determinationOrdered By: Usman Mares on 11-01-2024 MCH (RBC) [Entitic mass] 30.5 pg 27.0-32.0 [facility] Mean corpuscular hemoglobin concentration (MCHC) determinationOrdered By: Usman Mares on 11-01-2024 MCHC (RBC) [Mass/Vol] 34.6 g/dL 32-36 [facility] Mean platelet volume determi nationOrdered By: Usman Mares on 11-01-2024 Platelet mean volume (Bld) [Entitic vol] 10.7 fL 6.2-12.0 [facility] Monocyte percentageOrdered B y: Usman Mares on 11-01-2024 Monocytes/100 WBC (Bld) 15.6 % High 0-10 [facility] Neutrophil percentageOrdered By: Usman Mares on 11-01-2024 Neutrophils/100 WBC (Bld) 41.5 % Low 47-70 [facility] Nucleated red blood cell per centageOrdered By: Usman Mares on 11-01-2024 Nucleated RBC/100 WBC (Bld) [Ratio] 0 % 0-5 [facility] Platelet countOrdered By: Torrey Mares on 11-01-2024 Platelets (Bld) [#/Vol] 227 10*3/uL 150-450 [facility] Potassium measurement (mass/ volume)Ordered By: Usman Mares on 11-01-2024 Potassium (Unsp spec) [Mass/Vol] 4.1 mmol/L 3.3-5.1 [facility] Prothrombin Time w/INRon INR Coag (PPP) [Relative time] 1.0 {INR} Normal [facility] Comment on above: Order Comment: SEND CBCD,CMP,TSH,FT4 TO Performed By: #### L 501.2182, L500.4700, L501.6710, L100.0100, L300.3900, L506.0400, L501.9985 ####[facility] [address] [place], [address] PT Coag (PPP) [Time] 13.6 s Normal 11.7-14.9 [facility] Comment on above: Order Comment: SEND CBCD,CMP,TSH,FT4 TO Performed By: #### L 501.9520, L500.4050, L501.6710, L100.0100, L300.3900, L506.0400, L501.9985 ####[facility] [address] [place], [place], [address] Prothrombin timeOrdered By: Usman Mares on 11-01-2024 PT Coag (PPP) [Time] 13.6 s 11.7-14.9 [facility] RBC Auto (Bld) [#/Vol]Ordere d By: Usman Mares on 11-01-2024 RBC (Bld) [#/Vol] 5.09 10*6/uL 4.2-5.4 [facility] Screening total cholesterol/ high density lipoprotein (HDL) cholesterol ratioOrdered By: Tyron Knight on 11-01-2024 Cholesterol.total/Chol esterol in HDL [Mass ratio] 2.74 {ratio} [facility] Serum creatinine measurement (mass/volume)Ordered By: Usman Mares on 11-01-2024 Creatinine [Mass/Vol] 0.76 mg/dL 0.70-1.20 [facility] Serum globulin measurementOr dered By: Usman Mares on 11-01-2024 Globulin (S) [Mass/Vol] 3.0 g/dL 2.2-4.2 [facility] Serum glucose measurement (m ass/volume)Ordered By: Usman Mares on 11-01-2024 Glucose [Mass/Vol] 96 mg/dL 70-99 [facility] Serum or plasma C reactive p rotein measurement (mass/volume)Ordered By: Usman Mares on 11-01-2024 CRP [Mass/Vol] mg/L 0.0-3.0 [facility] Serum or plasma alanine aponte otransferase (ALT) measurementOrdered By: Usman Mares on 11-01-2024 ALT [Catalytic activity/Vol] 51 U/L High <35 [facility] Serum or plasma albumin negra urement (mass/volume)Ordered By: Usman Mares on 11-01-2024 Albumin [Mass/Vol] 4.0 g/dL 3.4-4.8 [facility] Serum or plasma albumin/glob ulin mass ratioOrdered By: Usman Mares on 11-01-2024 Albumin/Globulin [Mass ratio] 1.3 {ratio} 0.9-2.4 [facility] Serum or plasma alkaline angela sphatase measurementOrdered By: Usman Mares on 11-01-2024 ALP [Catalytic activity/Vol] 194 U/L High 35-104 [facility] Serum or plasma calcium negra urement (mass/volume)Ordered By: Usman Mares on 11-01-2024 Calcium [Mass/Vol] 9.3 mg/dL 7.6-11.0 [facility] Serum or plasma cholesterol in HDL measurement (mass/volume)Ordered By: Tyron Knight on 11-01-2024 Cholesterol in HDL [Mass/Vol] 51 mg/dL >40 [facility] Comment on above: National Cholesterol Education Program (NCEP) guidelines:<40 mg/dL: Low HDL-cholesterol (major risk factor for CHD)>= 60 mg/dL: High HDL-cholesterol (negative risk factor for CHD)HDL-cholesterol is affected by a number of factors, e.g. smoking, exercise, hormones, sex and age. Serum or plasma cholesterol measurement (mass/volume)Ordered By: Tyron Knight on 11-01-2024 Cholesterol [Mass/Vol] 141 mg/dL <201 [facility] Comment on above: Cholesterol level, D esirable <200 mg/dLBorderline high cholesterol 200-239 mg/dLHigh cholesterol >=240 mg/dLRecommendations of the NCEP Adult Treatment Panel for the following risk-cutoff thresholds for the [place] population. Serum or plasma ferritin rajesh surement (mass/volume)Ordered By: Tyron Knight on 11-01-2024 Ferritin [Mass/Vol] 223 ng/mL 22-378 [facility] Serum or plasma urea nitroge n measurement (mass/volume)Ordered By: Usman Mares on 11-01-2024 Urea nitrogen [Mass/Vol] 15 mg/dL 4-19 [facility] Sodium levelOrdered By: Prosper Mares on 11-01-2024 Sodium [Moles/Vol] 140 mmol/L 133-145 [facility] T4 Free Directon 11-01-2024 T4 FREE DIRECT 1.10 ng/dL Normal 0.76-1.46 [facility] Comment on above: Order Comment: SEND CBCD,CMP,TSH,FT4 TO Performed By: #### L 501.9520, L500.4050, L501.6710, L100.0100, L300.3900, L506.0400, L501.9985 ####[facility] [address] [place], [address] T4 freeOrdered By: Usman narayanan on 11-01-2024 Free T4 [Mass/Vol] 1.10 ng/dL 0.76-1.46 [facility] TSH DL <= 0.005 mIU/L QnOrde red By: Usman Mares on 11-01-2024 TSH Qn 0.041 uIU/mL Low 0.300-4.200 [facility] Thyroid Stim Hormone (TSH)on 11-01-2024 TSH 0.041 uIU/mL Low 0.300-4.200 [facility] Comment on above: Order Comment: SEND CBCD,CMP,TSH,FT4 TO Performed By: #### L 501.9520, L500.4050, L501.6710, L100.0100, L300.3900, L506.0400, L501.9985 ####[facility] [address] [place], [address] Total proteinOrdered By: Camila Mares on 11-01-2024 Protein [Mass/Vol] 7.0 g/dL 5.9-8.4 [facility] Triglycerides measurementOrd ered By: Tyron Knight on 11-01-2024 Triglyceride [Mass/Vol] 61 mg/dL <199 [facility] Comment on above: The drugs N-Acetylcy steine and Metamizole may falsely depress this assay. Normal range: <150 mg/dLBorderline High: 150-199 mg/dLHigh: 200-499 mg/dLVery High: >500 mg/dL Vitamin D,25 Hydroxyon 11-01 Vitamin D 25-OH 45.7 ng/mL Normal 30-100 [facility] Comment on above: Order Comment: Order Date: 10/28/24Order Info: [id number] - CMPOrder Date: 06/30/24Order Info: [id number] - LIPIDOrder Info: [id number] - TSHOrder Info: [id number] - FEOrder Info: [id number] - FEROrder Info: 4725-7 - T4F Result Comment: Diana min D Status Deficiency: <20 ng/mL (50nmol/L) Insufficiency: 20-30 ng/mL (50-75 nmol/L) Sufficiency: 30-100 ng/mL (75-250 nmol/L) Toxicity: >100 ng/mL (>250 nmol/L) Performed By: #### L 506.1001 ####[facility] [address] [place], [place], [address] White blood cell (WBC) count Ordered By: Usman Mares on 11-01-2024 WBC (Bld) [#/Vol] 3.9 10*3/uL Low 4.4-11.0 [facility] Ferritinon 06-09-2024 Ferritin [Mass/Vol] 168 ng/mL Normal 8-252 [facility] Comment on above: Order Comment: Order Date: 12/30/23Order Info: [id number] - CMPOrder Info: [id number] - TSHOrder Info: [id number] - [id number] ADD FERRITIN, IRON AND IRON BINDING TO BLOOD DONE ON06/08/24 Performed By: #### L 503.6550, L501.9985, L503.6075, L503.6150 ####[facility] [address] [place], [place], [address] Hemoglobin A1con 06-09-2024 HbA1c (Bld) [Mass fraction] 5.4 % Normal 3.8-5.6 [facility] Comment on above: Order Comment: KRISTINA Luna AD TO BLOOD DONE ON 06/08/24 Result Comment: Norm al < 5.7 % Prediabetic 5.7 - 6.4 % Diabetic >or= 6.5 % Please note range changes. Performed By: #### L 503.6550, L501.9985, L503.6075, L503.6150 ####[facility] [address] [place], [address] Ironon 06-09-2024 Iron [Mass/Vol] 118 ug/dL Normal 50-170 [facility] Comment on above: Order Comment: Order Date: 12/30/23Order Info: [id number] - CMPOrder Info: [id number] - TSHOrder Info: [id number] - [id number] ADD FERRITIN, IRON AND IRON BINDING TO BLOOD DONE ON06/08/24 Performed By: #### L 503.6550, L501.9985, L503.6075, L503.6150 ####[facility] [address] [place], [address] Iron Binding Capacity,Totalo n 06-09-2024 TIBC 394 ug/dL Normal 250-450 [facility] Comment on above: Order Comment: Order Date: 12/30/23Order Info: [id number] - CMPOrder Info: [id number] - TSHOrder Info: 3024-7 - [id number] ADD FERRITIN, IRON AND IRON BINDING TO BLOOD DONE ON06/08/24 Performed By: #### L 503.6550, L501.9985, L503.6075, L503.6150 ####[facility] [address] [place], [place], [address] CBC W/Diff, Automatedon 05-29 Absolute Lymph 1.53 X10 3/uL Normal 0.83-4.51 [facility] Comment on above: Order Comment: Order Date: 12/30/23Order Info: 0184-1 - CBCD Performed By: #### L 506.1000, L500.4050, L100.0100, L506.0400, L501.9520 ####[facility] [address] [place], [address] Absolute Neut 2.6 X10 3/uL Normal 2.0-7.7 [facility] Comment on above: Order Comment: Order Date: 12/30/23Order Info: 0184-1 - CBCD Performed By: #### L 506.1000, L500.4050, L100.0100, L506.0400, L501.9520 ####[facility] [address] [place], [address] Basophils/100 WBC (Bld) 1.6 % High 0-1 [facility] Comment on above: Order Comment: Order Date: 12/30/23Order Info: 0184-1 - CBCD Performed By: #### L 506.1000, L500.4050, L100.0100, L506.0400, L501.9520 ####[facility] [address] [place], [address] Eosinophils/100 WBC (Bld) 3.4 % Normal 0-5 [facility] Comment on above: Order Comment: Order Date: 12/30/23Order Info: 0184-1 - CBCD Performed By: #### L 506.1000, L500.4050, L100.0100, L506.0400, L501.9520 ####[facility] [address] [place], [address] Erythrocyte distribution width (RBC) [Ratio] 12.3 % Normal 11.6-14.6 [facility] Comment on above: Order Comment: Order Date: 12/30/23Order Info: 0184-1 - CBCD Performed By: #### L 506.1000, L500.4050, L100.0100, L506.0400, L501.9520 ####[facility] [address] [place], [address] Hematocrit (Bld) [Volume fraction] 45.2 % Normal 37-47 [facility] Comment on above: Order Comment: Order Date: 12/30/23Order Info: 0184-1 - CBCD Performed By: #### L 506.1000, L500.4050, L100.0100, L506.0400, L501.9520 ####[facility] [address] [place], [address] Hemoglobin (Bld) [Mass/Vol] 15.6 g/dL High 12.0-15.0 [facility] Comment on above: Order Comment: Order Date: 12/30/23Order Info: 0184-1 - CBCD Performed By: #### L 506.1000, L500.4050, L100.0100, L506.0400, L501.9520 ####[facility] [address] [place], [address] IG% 0.200 Normal 0.0-0.9 [facility] Comment on above: Order Comment: Order Date: 12/30/23Order Info: 0184-1 - CBCD Result Comment: IG% - Immature Granulocytes (promyelocytes, myelocytes and metamyelocytes) > 1% indicates that a LEFT SHIFT is Present. Performed By: #### L 506.1000, L500.4050, L100.0100, L506.0400, L501.9520 ####[facility] [address] [place], [address] Lymphocytes/100 WBC (Bld) 30.6 % Normal 19-41 [facility] Comment on above: Order Comment: Order Date: 12/30/23Order Info: 0184-1 - CBCD Performed By: #### L 506.1000, L500.4050, L100.0100, L506.0400, L501.9520 ####[facility] [address] [place], [address] MCH (RBC) [Entitic mass] 30.2 pg Normal 27.0-32.0 [facility] Comment on above: Order Comment: Order Date: 12/30/23Order Info: 0184-1 - CBCD Performed By: #### L 506.1000, L500.4050, L100.0100, L506.0400, L501.9520 ####[facility] [address] [place], [address] MCHC (RBC) [Mass/Vol] 34.5 g/dL Normal 32-36 [facility] Comment on above: Order Comment: Order Date: 12/30/23Order Info: 0184-1 - CBCD Performed By: #### L 506.1000, L500.4050, L100.0100, L506.0400, L501.9520 ####[facility] [address] [place], [address] MCV (RBC) [Entitic vol] 87.6 fL Normal 81-99 [facility] Comment on above: Order Comment: Order Date: 12/30/23Order Info: 0184-1 - CBCD Performed By: #### L 506.1000, L500.4050, L100.0100, L506.0400, L501.9520 ####[facility] [address] [place], [address] Monocytes/100 WBC (Bld) 12.8 % High 0-10 [facility] Comment on above: Order Comment: Order Date: 12/30/23Order Info: 0184-1 - CBCD Performed By: #### L 506.1000, L500.4050, L100.0100, L506.0400, L501.9520 ####[facility] [address] [place], [address] Neutrophils/100 WBC (Bld) 51.4 % Normal 47-70 [facility] Comment on above: Order Comment: Order Date: 12/30/23Order Info: 0184-1 - CBCD Performed By: #### L 506.1000, L500.4050, L100.0100, L506.0400, L501.9520 ####[facility] [address] [place], [address] Nucleated RBC (Bld) [#/Vol] 0 10*3/uL Normal 0-5 [facility] Comment on above: Order Comment: Order Date: 12/30/23Order Info: 0184-1 - CBCD Performed By: #### L 506.1000, L500.4050, L100.0100, L506.0400, L501.9520 ####[facility] [address] [place], [address] Platelet mean volume (Bld) [Entitic vol] 9.7 fL Normal 6.2-12.0 [facility] Comment on above: Order Comment: Order Date: 12/30/23Order Info: 0184-1 - CBCD Performed By: #### L 506.1000, L500.4050, L100.0100, L506.0400, L501.9520 ####[facility] [address] [place], [address] Platelets (Bld) [#/Vol] 275 10*3/uL Normal 150-450 [facility] Comment on above: Order Comment: Order Date: 12/30/23Order Info: 0184-1 - CBCD Performed By: #### L 506.1000, L500.4050, L100.0100, L506.0400, L501.9520 ####[facility] [address] [place], [address] RBC (Bld) [#/Vol] 5.16 10*6/uL Normal 4.2-5.4 [facility] Comment on above: Order Comment: Order Date: 12/30/23Order Info: 0184-1 - CBCD Performed By: #### L 506.1000, L500.4050, L100.0100, L506.0400, L501.9520 ####[facility] [address] [place], [address] RDW SD 39.6 fl Normal 35.1-43.9 [facility] Comment on above: Order Comment: Order Date: 12/30/23Order Info: 0184-1 - CBCD Performed By: #### L 506.1000, L500.4050, L100.0100, L506.0400, L501.9520 ####[facility] [address] [place], [address] WBC (Bld) [#/Vol] 5.0 10*3/uL Normal 4.4-11.0 [facility] Comment on above: Order Comment: Order Date: 12/30/23Order Info: 0184-1 - CBCD Performed By: #### L 506.1000, L500.4050, L100.0100, L506.0400, L501.9520 ####[facility] [address] [place], [address] Comprehensive Metabolic Prof pron 06-08-2024 Albumin [Mass/Vol] 3.5 g/dL Normal 3.2-5.0 [facility] Comment on above: Order Comment: Order Date: 12/30/23Order Info: 0786-1 - CMPOrder Info: 3016-3 - TSHOrder Info: 3024-7 - T4F Performed By: #### L 506.1000, L500.4050, L100.0100, L506.0400, L501.9520 ####[facility] [address] [place], [address] Albumin/Globulin [Mass ratio] 0.9 {ratio} Normal 0.9-2.4 [facility] Comment on above: Order Comment: Order Date: 12/30/23Order Info: 0786-1 - CMPOrder Info: 3016-3 - TSHOrder Info: 3024-7 - T4F Performed By: #### L 506.1000, L500.4050, L100.0100, L506.0400, L501.9520 ####[facility] [address] [place], [address] ALK P 142 U/L High 45-117 [facility] Comment on above: Order Comment: Order Date: 12/30/23Order Info: 0786-1 - CMPOrder Info: [id number] - TSHOrder Info: 3024-7 - T4F Performed By: #### L 506.1000, L500.4050, L100.0100, L506.0400, L501.9520 ####[facility] [address] [place], [address] ALT [Catalytic activity/Vol] 45 U/L Normal 13-56 [facility] Comment on above: Order Comment: Order Date: 12/30/23Order Info: 0786- - CMPOrder Info: [id number] - TSHOrder Info: 7 - T4F Performed By: #### L 506.1000, L500.4050, L100.0100, L506.0400, L501.9520 ####[facility] [address] [place], [address] AST [Catalytic activity/Vol] 33 U/L Normal 15-37 [facility] Comment on above: Order Comment: Order Date: 12/30/23Order Info: 0786-1 - CMPOrder Info: 3 - TSHOrder Info: 3024-7 - T4F Performed By: #### L 506.1000, L500.4050, L100.0100, L506.0400, L501.9520 ####[facility] [address] [place], [address] Bilirubin [Mass/Vol] 0.60 mg/dL Normal 0.20-1.00 [facility] Comment on above: Order Comment: Order Date: 12/30/23Order Info: 0786-1 - CMPOrder Info: 3015-06 - TSHOrder Info: 3024-7 - T4F Result Comment: For patients on eltrombopag therapy, use of Dimension [place] TBIL is not recommended. Performed By: #### L 506.1000, L500.4050, L100.0100, L506.0400, L501.9520 ####[facility] [address] [place], [address] BUN/CRE 21.5 RATIO High 10-20 [facility] Comment on above: Order Comment: Order Date: 12/30/23Order Info: 0786-1 - CMPOrder Info: 3 - TSHOrder Info: 7 - T4F Performed By: #### L 506.1000, L500.4050, L100.0100, L506.0400, L501.9520 ####[facility] [address] [place], [address] CA,Total 9.2 mg/dL Normal 8.5-10.1 [facility] Comment on above: Order Comment: Order Date: 12/30/23Order Info: 0786-1 - CMPOrder Info: 3 - TSHOrder Info: 3023-10 - T4F Performed By: #### L 506.1000, L500.4050, L100.0100, L506.0400, L501.9520 ####[facility] [address] [place], [address] Chloride [Moles/Vol] 107 mmol/L Normal 98-107 [facility] Comment on above: Order Comment: Order Date: 12/30/23Order Info: 0786-1 - CMPOrder Info: 63 - TSHOrder Info: 3027 - T4F Performed By: #### L 506.1000, L500.4050, L100.0100, L506.0400, L501.9520 ####[facility] [address] [place], [address] CO2 [Moles/Vol] 27.0 mmol/L Normal 21.0-32.0 [facility] Comment on above: Order Comment: Order Date: 12/30/23Order Info: 07-1 - CMPOrder Info: 3 - TSHOrder Info: 3024-7 - T4F Performed By: #### L 506.1000, L500.4050, L100.0100, L506.0400, L501.9520 ####[facility] [address] [place], [address] Creatinine [Mass/Vol] 0.79 mg/dL Normal 0.55-1.02 [facility] Comment on above: Order Comment: Order Date: 12/30/23Order Info: 785-1 - CMPOrder Info: 3015-06 - TSHOrder Info: 7 - T4F Result Comment: The validity of the calculated GFR GFRAA in patients over 70 years has not been determined. Clinical correlation is essential. Performed By: #### L 506.1000, L500.4050, L100.0100, L506.0400, L501.9520 ####[facility] [address] [place], [address] EST GFR - AA 92 mL/min Normal >60 [facility] Comment on above: Order Comment: Order Date: 12/30/23Order Info: 0786- - CMPOrder Info: 63 - TSHOrder Info: 3024-7 - T4F Result Comment: Afri can Cymraes GFR Calc Performed By: #### L 506.1000, L500.4050, L100.0100, L506.0400, L501.9520 ####[facility] [address] [place], [address] GAP 5 Normal 5-15 [facility] Comment on above: Order Comment: Order Date: 12/30/23Order Info: 0786-1 - CMPOrder Info: 63 - TSHOrder Info: 3024-7 - T4F Performed By: #### L 506.1000, L500.4050, L100.0100, L506.0400, L501.9520 ####[facility] [address] [place], [address] GFR/1.73 sq M.predicted among non-blacks MDRD (S/P/Bld) [Vol rate/Area] 76 mL/min/{1.73_m2} Normal >60 [facility] Comment on above: Order Comment: Order Date: 12/30/23Order Info: 0786-1 - CMPOrder Info: 6-3 - TSHOrder Info: 3024-7 - T4F Result Comment: Non- GFR Calc Performed By: #### L 506.1000, L500.4050, L100.0100, L506.0400, L501.9520 ####[facility] [address] [place], [address] Globulin (S) [Mass/Vol] 4.0 g/dL Normal 2.2-4.2 [facility] Comment on above: Order Comment: Order Date: 12/30/23Order Info: 0786-1 - CMPOrder Info: 6-3 - TSHOrder Info: 3024-7 - T4F Performed By: #### L 506.1000, L500.4050, L100.0100, L506.0400, L501.9520 ####[facility] [address] [place], [address] Glucose [Mass/Vol] 102 mg/dL Normal 74-106 [facility] Comment on above: Order Comment: Order Date: 12/30/23Order Info: 0786-1 - CMPOrder Info: 6-3 - TSHOrder Info: 3024-7 - T4F Result Comment: Fast ing Glucose result from 100 to 125 mg/dL suggests IMPAIRED HOMEOSTASIS per A.D.A. criteria. Performed By: #### L 506.1000, L500.4050, L100.0100, L506.0400, L501.9520 ####[facility] [address] [place], [address] Potassium [Moles/Vol] 4.2 mmol/L Normal 3.5-5.1 [facility] Comment on above: Order Comment: Order Date: 12/30/23Order Info: 785-1 - CMPOrder Info: 3015-06 - TSHOrder Info: 4-7 - T4F Performed By: #### L 506.1000, L500.4050, L100.0100, L506.0400, L501.9520 ####[facility] [address] [place], [address] Sodium [Moles/Vol] 138 mmol/L Normal 136-145 [facility] Comment on above: Order Comment: Order Date: 12/30/23Order Info: 785-1 - CMPOrder Info: 3015-06 - TSHOrder Info: 7 - T4F Performed By: #### L 506.1000, L500.4050, L100.0100, L506.0400, [id number] ####[facility] [address] [place], [address] T PROT 7.5 g/dL Normal 6.4-8.2 [facility] Comment on above: Order Comment: Order Date: 12/30/23Order Info: 785- - CMPOrder Info: 3015-06 - TSHOrder Info: 7 - T4F Performed By: #### L 506.1000, L500.4050, L100.0100, L506.0400, [id number] ####[facility] [address] [place], [address] Urea nitrogen [Mass/Vol] 17 mg/dL Normal 7-18 [facility] Comment on above: Order Comment: Order Date: 12/30/23Order Info: 785-1 - CMPOrder Info: 3015-06 - TSHOrder Info: 7 - T4F Performed By: #### L 506.1000, L500.4050, L100.0100, L506.0400, L501.9520 ####[facility] [address] [place], [address] T4 Free Directon 06-08-2024 T4 FREE DIRECT 0.87 ng/dL Normal 0.76-1.46 [facility] Comment on above: Order Comment: Order Date: 12/30/23Order Info: 0786-1 - CMPOrder Info: 3016-3 - TSHOrder Info: 3024-7 - T4F Performed By: #### L 506.1000, L500.4050, L100.0100, L506.0400, L501.9520 ####[facility] [address] [place], [address] Thyroid Stim Hormone (TSH)on 06-08-2024 TSH 0.103 uIU/mL Low 0.358-3.740 [facility] Comment on above: Order Comment: Order Date: 12/30/23Order Info: 0786-1 - CMPOrder Info: 6-3 - TSHOrder Info: 7 - T4F Performed By: #### L 506.1000, L500.4050, L100.0100, L506.0400, L501.9520 ####[facility] [address] [place], [place], [id number] Vitamin D,25 Hydroxyon 06-08 Vitamin D 25-OH 69.6 ng/mL Normal [facility] Comment on above: Order Comment: Order Date: 12/30/23Order Info: 89718-6 - VITD25 Result Comment: Diana min D 25(OH) Status Range Deficiency <20 ng/mL (50nmol/L) Insufficiency 20 - 30 ng/mL (50 - 75 nmol/L) Sufficiency 30 - 100 ng/mL (75 - 250 nmol/L) Toxicity >100 ng/mL (>250 nmol/L) Performed By: #### L 506.1000, L500.4050, L100.0100, L506.0400, L501.9520 ####[facility] [address] [place], [address] Gastroenterology Visit Repor ton 06-07-2024 Gastroenterology Visit Report [facility] [address] [place] [address] OFFICE VISIT Date of Service: 06/07/24 MR#: [id number] Acct: [id number] Name: RACHEL MAY Rep #: [id number] : 1950 Provider: Dr. Usman kaplan MD Age/Sex: 73/F Location: [facility] Status: Signed Intake Vital Signs 12/12/23 07:52 [...] Initially noted when she first saw her humane officer, Dr. Calloway; then established with [facility] for osteoarthritis who did not feel she [...] tooth pu (more content not included)... Normal [facility] Orthopedic Visit Reporton Orthopedic Visit Report [facility] [address] [place] [address] OFFICE VISIT Date of Service: 06/03/24 MR#: [id number] Acct: [id number] Name: RACHEL MAY Rep #: [id number] : 1950 Provider: Dr. Siva Louise MD Age/Sex: 73/F Location: [facility] Status: Signed Intake Vital Signs 12/12/23 07:52 [...] by me, Dr. Siva Louise MD 06/03/24 3250. Part of today???s visit was documented by [...] x-ray imaging from outside source. X-rays from [facility] were available which show L4- 5 [...] referral sen (more content not included)... Normal [facility] Thyroidon 01-09-2024 Thyroid [facility] Services [address] [place], [place] [address] Thyroid MR#: [id number] Acct: [id number] Name: RACHEL MAY Rep #: [id number] : 1950 F 73 From: Chino Fry DO PCP: Dr. Tyron Kngiht MD Status: [facility] Study: Thyroid Date of Exam: 01/09/24 Exam# [id number] Ordering Dr: Tyron Knight MD [id number] INDICATION: nodule EXAMINATION: Ultrasound US Thyroid (eg [...] DO at 19:26 EDT , CC: Dr. Tryon Knight MD Director Sales Training: Signed Normal [facility] Comprehensive Metabolic Prof ilon 12-30-2023 Albumin [Mass/Vol] 3.5 g/dL Normal 3.2-5.0 [facility] Comment on above: Order Comment: Order Date: 12/30/23Order Info: 0786-1 - CMPOrder Info: 3016-3 - TSHOrder Info: 2500-7 - TIBCOrder Info: 2498-4 - FEOrder Info: 2276-4 - FEROrder Info: 3024-7 - T4F Performed By: #### L 503.6150, L506.1000, L501.9520, L503.6075, L500.4050, L503.6550, L506.0400 ####[facility] [address] [place], [place], [address] Albumin/Globulin [Mass ratio] 0.9 {ratio} Normal 0.9-2.4 [facility] Comment on above: Order Comment: Order Date: 12/30/23Order Info: 0786-1 - CMPOrder Info: 3016-3 - TSHOrder Info: 2500-7 - TIBCOrder Info: 2498-4 - FEOrder Info: 2276-4 - FEROrder Info: 3024-7 - T4F Performed By: #### L 503.6150, L506.1000, L501.9520, L503.6075, L500.4050, L503.6550, L506.0400 ####[facility] [address] [place], [address] ALK P 98 U/L Normal 45-117 [facility] Comment on above: Order Comment: Order Date: 12/30/23Order Info: 0786-1 - CMPOrder Info: 3015-3 - TSHOrder Info: 7 - TIBCOrder Info: 249- - FEOrder Info: 2275-4 - FEROrder Info: 302-7 - T4F Performed By: #### L 503.6150, L506.1000, L501.9520, L503.6075, L500.4050, L503.6550, L506.0400 ####[facility] [address] [place], [address] ALT [Catalytic activity/Vol] 39 U/L Normal 13-56 [facility] Comment on above: Order Comment: Order Date: 12/30/23Order Info: 0786-1 - CMPOrder Info: 3015-3 - TSHOrder Info: 2499-10 - TIBCOrder Info: 24911-29 - FEOrder Info: 2275-4 - FEROrder Info: 302-7 - T4F Performed By: #### L 503.6150, L506.1000, L501.9520, L503.6075, L500.4050, L503.6550, L506.0400 ####[facility] [address] [place], [address] AST [Catalytic activity/Vol] 30 U/L Normal 15-37 [facility] Comment on above: Order Comment: Order Date: 12/30/23Order Info: 0786-1 - CMPOrder Info: 6-3 - TSHOrder Info: 2499-7 - TIBCOrder Info: 249- - FEOrder Info: 227-4 - FEROrder Info: 3024-7 - T4F Performed By: #### L 503.6150, L506.1000, L501.9520, L503.6075, L500.4050, L503.6550, L506.0400 ####[facility] [address] [place], [address] Bilirubin [Mass/Vol] 0.30 mg/dL Normal 0.20-1.00 [facility] Comment on above: Order Comment: Order Date: 12/30/23Order Info: 0786-1 - CMPOrder Info: 3015-3 - TSHOrder Info: 2499-7 - TIBCOrder Info: 2498-4 - FEOrder Info: 2275-4 - FEROrder Info: 3024-7 - T4F Result Comment: For patients on eltrombopag therapy, use of Dimension [place] TBIL is not recommended. Performed By: #### L 503.6150, L506.1000, L501.9520, L503.6075, L500.4050, L503.6550, L506.0400 ####[facility] [address] [place], [address] BUN/CRE 18.2 RATIO Normal 10-20 [facility] Comment on above: Order Comment: Order Date: 12/30/23Order Info: 0786-1 - CMPOrder Info: 6-3 - TSHOrder Info: 7 - TIBCOrder Info: 2498-4 - FEOrder Info: 2275-4 - FEROrder Info: 3024-7 - T4F Performed By: #### L 503.6150, L506.1000, L501.9520, L503.6075, L500.4050, L503.6550, L506.0400 ####[facility] [address] [place], [place], [phone] CA,Total 9.4 mg/dL Normal 8.5-10.1 [facility] Comment on above: Order Comment: Order Date: 12/30/23Order Info: 0786-1 - CMPOrder Info: 3015-3 - TSHOrder Info: 7 - TIBCOrder Info: 249-4 - FEOrder Info: 227-4 - FEROrder Info: 4-7 - T4F Performed By: #### L 503.6150, L506.1000, L501.9520, L503.6075, L500.4050, L503.6550, L506.0400 ####[facility] [address] [place], [address] Chloride [Moles/Vol] 103 mmol/L Normal 98-107 [facility] Comment on above: Order Comment: Order Date: 12/30/23Order Info: 86-1 - CMPOrder Info: 3015-3 - TSHOrder Info: 7 - TIBCOrder Info: 4 - FEOrder Info: 4 - FEROrder Info: 3023-7 - T4F Performed By: #### L 503.6150, L506.1000, L501.9520, L503.6075, L500.4050, L503.6550, L506.0400 ####[facility] [address] [place], [address] CO2 [Moles/Vol] 28.0 mmol/L Normal 21.0-32.0 [facility] Comment on above: Order Comment: Order Date: 12/30/23Order Info: 785-1 - CMPOrder Info: 3015-3 - TSHOrder Info: 7 - TIBCOrder Info: 4 - FEOrder Info: 4 - FEROrder Info: 3023-7 - T4F Performed By: #### L 503.6150, L506.1000, L501.9520, L503.6075, L500.4050, L503.6550, L506.0400 ####[facility] [address] [place], [address] Creatinine [Mass/Vol] 0.77 mg/dL Normal 0.55-1.02 [facility] Comment on above: Order Comment: Order Date: [...] 503.6150, L506.1000, L501.9520, L503.6075, L500.4050, L503.6550, L506.0400 ####[facility] [address] [place], [address] EST GFR - AA 95 mL/min Normal >60 [facility] Comment on above: Order Comment: Order Date: 12/30/23Order Info: 0786-1 - CMPOrder Info: 3 - TSHOrder Info: 2499-10 - TIBCOrder Info: 2498-4 - FEOrder Info: 2275-4 - FEROrder Info: 3023-7 - T4F Result Comment: Afri can Cymraes GFR Calc Performed By: #### L 503.6150, L506.1000, L501.9520, L503.6075, L500.4050, L503.6550, L506.0400 ####[facility] [address] [place], [place], [phone](084) GAP 6 Normal 5-15 [facility] Comment on above: Order Comment: Order Date: 12/30/23Order Info: 0786-1 - CMPOrder Info: 3 - TSHOrder Info: 2499-10 - TIBCOrder Info: 249-4 - FEOrder Info: 227-4 - FEROrder Info: 3024-7 - T4F Performed By: #### L 503.6150, L506.1000, L501.9520, L503.6075, L500.4050, L503.6550, L506.0400 ####[facility] [address] [place], [place], [phone](104) GFR/1.73 sq M.predicted among non-blacks MDRD (S/P/Bld) [Vol rate/Area] 78 mL/min/{1.73_m2} Normal >60 [facility] Comment on above: Order Comment: Order Date: 12/30/23Order Info: 0786-1 - CMPOrder Info: 3015-3 - TSHOrder Info: 2500-7 - TIBCOrder Info: 249-4 - FEOrder Info: 2276-4 - FEROrder Info: 3024-7 - T4F Result Comment: Non- GFR Calc Performed By: #### L 503.6150, L506.1000, L501.9520, L503.6075, L500.4050, L503.6550, L506.0400 ####[facility] [address] [place], [address] Globulin (S) [Mass/Vol] 3.7 g/dL Normal 2.2-4.2 [facility] Comment on above: Order Comment: Order Date: 12/30/23Order Info: 785-1 - CMPOrder Info: 3 - TSHOrder Info: 7 - TIBCOrder Info: 2497-07 - FEOrder Info: 2275-4 - FEROrder Info: 3023-7 - T4F Performed By: #### L 503.6150, L506.1000, L501.9520, L503.6075, L500.4050, L503.6550, L506.0400 ####[facility] [address] [place], [address] Glucose [Mass/Vol] 122 mg/dL High 74-106 [facility] Comment on above: Order Comment: Order Date: 12/30/23Order Info: 0786-1 - CMPOrder Info: 3 - TSHOrder Info: 7 - TIBCOrder Info: 2497- - FEOrder Info: 227-4 - FEROrder Info: 3024-7 - T4F Result Comment: Fast ing Glucose result from 100 to 125 mg/dL suggests IMPAIRED HOMEOSTASIS per A.D.A. criteria. Performed By: #### L 503.6150, L506.1000, L501.9520, L503.6075, L500.4050, L503.6550, L506.0400 ####[facility] [address] [place], [address] Potassium [Moles/Vol] 3.7 mmol/L Normal 3.5-5.1 [facility] Comment on above: Order Comment: Order Date: 12/30/23Order Info: 0786-1 - CMPOrder Info: 6-3 - TSHOrder Info: 2499-7 - TIBCOrder Info: 249-4 - FEOrder Info: 227-4 - FEROrder Info: 3024-7 - T4F Performed By: #### L 503.6150, L506.1000, L501.9520, L503.6075, L500.4050, L503.6550, L506.0400 ####[facility] [address] [place], [address] Sodium [Moles/Vol] 137 mmol/L Normal 136-145 [facility] Comment on above: Order Comment: Order Date: 12/30/23Order Info: 86-1 - CMPOrder Info: 3015-3 - TSHOrder Info: 2499-10 - TIBCOrder Info: 249-4 - FEOrder Info: 227-4 - FEROrder Info: 3024-7 - T4F Performed By: #### L 503.6150, L506.1000, L501.9520, L503.6075, L500.4050, L503.6550, L506.0400 ####[facility] [address] [place], [address] T PROT 7.2 g/dL Normal 6.4-8.2 [facility] Comment on above: Order Comment: Order Date: 12/30/23Order Info: 0786-1 - CMPOrder Info: 3016-3 - TSHOrder Info: 25007 - TIBCOrder Info: 249-4 - FEOrder Info: 227-4 - FEROrder Info: 3024-7 - T4F Performed By: #### L 503.6150, L506.1000, L501.9520, L503.6075, L500.4050, L503.6550, L506.0400 ####[facility] [address] [place], [place], [phone](238) Urea nitrogen [Mass/Vol] 14 mg/dL Normal 7-18 [facility] Comment on above: Order Comment: Order Date: 12/30/23Order Info: 0786-1 - CMPOrder Info: 3015-3 - TSHOrder Info: 2500-7 - TIBCOrder Info: 2498-4 - FEOrder Info: 227-4 - FEROrder Info: 302-7 - T4F Performed By: #### L 503.6150, L506.1000, L501.9520, L503.6075, L500.4050, L503.6550, L506.0400 ####[facility] [address] [place], [place], [phone](038) Ferritinon 12-30-2023 Ferritin [Mass/Vol] 58 ng/mL Normal 8-252 [facility] Comment on above: Order Comment: Order Date: 12/30/23Order Info: 785-1 - CMPOrder Info: 3015-3 - TSHOrder Info: 2500-7 - TIBCOrder Info: 2498-4 - FEOrder Info: 227-4 - FEROrder Info: 302-7 - T4F Performed By: #### L 503.6150, L506.1000, L501.9520, L503.6075, L500.4050, L503.6550, L506.0400 ####[facility] [address] [place], [place], [phone](572) Ironon 12-30-2023 Iron [Mass/Vol] 63 ug/dL Normal 50-170 [facility] Comment on above: Order Comment: Order Date: 12/30/23Order Info: 0786-1 - CMPOrder Info: 6-3 - TSHOrder Info: 2500-7 - TIBCOrder Info: 2498-4 - FEOrder Info: 227-4 - FEROrder Info: 3024-7 - T4F Performed By: #### L 503.6150, L506.1000, L501.9520, L503.6075, L500.4050, L503.6550, L506.0400 ####[facility] [address] [place], [place], [phone](613) Iron Binding Capacity,Totalo n 12-30-2023 TIBC 317 ug/dL Normal 250-450 [facility] Comment on above: Order Comment: Order Date: 12/30/23Order Info: 785-1 - CMPOrder Info: 3015-3 - TSHOrder Info: 2500-7 - TIBCOrder Info: 2498-4 - FEOrder Info: 2275-4 - FEROrder Info: 302-7 - T4F Performed By: #### L 503.6150, L506.1000, L501.9520, L503.6075, L500.4050, L503.6550, L506.0400 ####[facility] [address] [place], [address] T4 Free Directon 12-30-2023 T4 FREE DIRECT 1.15 ng/dL Normal 0.76-1.46 [facility] Comment on above: Order Comment: Order Date: 12/30/23Order Info: 785-1 - CMPOrder Info: 6-3 - TSHOrder Info: 2499-7 - TIBCOrder Info: 2497-4 - FEOrder Info: 4 - FEROrder Info: 7 - T4F Performed By: #### L 503.6150, L506.1000, L501.9520, L503.6075, L500.4050, L503.6550, L506.0400 ####[facility] [address] [place], [place], [phone](904) Thyroid Stim Hormone (TSH)on 12-30-2023 TSH 0.163 uIU/mL Low 0.358-3.740 [facility] Comment on above: Order Comment: Order Date: 12/30/23Order Info: 785-1 - CMPOrder Info: 3015-3 - TSHOrder Info: 2500-7 - TIBCOrder Info: 2498-4 - FEOrder Info: 2276-4 - FEROrder Info: 3024-7 - T4F Performed By: #### L 503.6150, L506.1000, L501.9520, L503.6075, L500.4050, L503.6550, L506.0400 ####[facility] [address] [place], [place], [phone] Vitamin D,25 Hydroxyon 12-29 Vitamin D 25-OH 38.3 ng/mL Normal [facility] Comment on above: Order Comment: Order Date: 12/30/23Order Info: 42432-5 - VITD25 Result Comment: Diana min D 25(OH) Status Range Deficiency <20 ng/mL (50nmol/L) Insufficiency 20 - 30 ng/mL (50 - 75 nmol/L) Sufficiency 30 - 100 ng/mL (75 - 250 nmol/L) Toxicity >100 ng/mL (>250 nmol/L) Performed By: #### L 503.6150, L506.1000, L501.9520, L503.6075, L500.4050, L503.6550, L506.0400 ####[facility] [address] [place], [place], [phone] CARLTON w/ Reflex Mult Confirmon 12-15-2023 CARLTON,DIRECT Negative Normal Negative [facility] Comment on above: Result Comment: Perf ormed at: - [facility] [address] [id number] [employer]: Vraun Jo PhD, Phone: [phone] Performed By: #### L 501.9520, L300.3900, L803.2200, L3100.5450, L800.1280, L100.0100, L506.0400, L501.9985, L3300.0700 ####[facility] [address] [place], [place], [phone] Anti-Mitochondrial ABon -1 9-2024 ANTIMITOCHON AB <20.0 Normal 0.0-20.0 [facility] Comment on above: Result Comment: Nega tive 0.0 - 20.0 Equivocal 20.1 - 24.9 Positive >24.9 Mitochondrial (M2) Antibodies are found in 90-96% of patients with primary biliary cirrhosis. Performed By: #### L 501.9520, L300.3900, L803.2200, L3100.5450, L800.1280, L100.0100, L506.0400, L501.9985, L3300.0700 ####[facility] [address] [place], [place], [phone] AFP, Tumor Markeron 12-13-19 24 AFP TUMOR CHILO 5.1 ng/mL Normal 0.0-9.2 [facility] Comment on above: Order Comment: N Result Comment: [facility] Electrochemiluminescence Immunoassay (ECLIA) Values obtained with different assay methods or kits cannot be used interchangeably. Results cannot be interpreted as absolute evidence of the presence or absence of malignant disease. This test is not interpretable in females. Performed By: #### L 501.9520, L300.3900, L803.2200, L3100.5450, L800.1280, L100.0100, L506.0400, L501.9985, L3300.0700 ####[facility] [address] [place], [address] Anti-Smooth Muscle ABSon ANTISMOOTH MUSC 11 Units Normal 0-19 [facility] Comment on above: Order Comment: N Result Comment: Nega tive 0 - 19 Weak positive 20 - 30 Moderate to strong positive >30 Actin Antibodies are found in 52-85% of patients with autoimmune hepatitis or chronic active hepatitis and in 22% of patients with primary biliary cirrhosis. Performed at: [address] [id number] [employer]: Varun Jo PhD, Phone: [phone] Performed By: #### L 501.9520, L300.3900, L803.2200, L3100.5450, L800.1280, L100.0100, L506.0400, L501.9985, L3300.0700 ####[facility] [address] [facility] [place], [place], [phone](052) CBC W/Diff, Automatedon 11-26 Absolute Lymph 1.21 X10 3/uL Normal 0.83-4.51 [facility] Comment on above: Performed By: #### L 501.9520, L300.3900, L803.2200, L3100.5450, L800.1280, L100.0100, L506.0400, L501.9985, L3300.0700 ####[facility] [address] [facility]. [place], [place], [phone](680) Absolute Neut 3.5 X10 3/uL Normal 2.0-7.7 [facility] Comment on above: Performed By: #### L 501.9520, L300.3900, L803.2200, L3100.5450, L800.1280, L100.0100, L506.0400, L501.9985, L3300.0700 ####[facility] [address] [facility]. [place], [place], [phone] Basophils/100 WBC (Bld) 1.6 % High 0-1 [facility] Comment on above: Performed By: #### L 501.9520, L300.3900, L803.2200, L3100.5450, L800.1280, L100.0100, L506.0400, L501.9985, L3300.0700 ####[facility] [address] [facility] [place], [address] Eosinophils/100 WBC (Bld) 4.9 % Normal 0-5 [facility] Comment on above: Performed By: #### L 501.9520, L300.3900, L803.2200, L3100.5450, L800.1280, L100.0100, L506.0400, L501.9985, L3300.0700 ####[facility] [address] [place], [place], [phone] Erythrocyte distribution width (RBC) [Ratio] 12.2 % Normal 11.6-14.6 [facility] Comment on above: Performed By: #### L 501.9520, L300.3900, L803.2200, L3100.5450, L800.1280, L100.0100, L506.0400, L501.9985, L3300.0700 ####[facility] [address] [place], [address](959) Hematocrit (Bld) [Volume fraction] 46.8 % Normal 37-47 [facility] Comment on above: Performed By: #### L 501.9520, L300.3900, L803.2200, L3100.5450, L800.1280, L100.0100, L506.0400, L501.9985, L3300.0700 ####[facility] [address] [place], [address] Hemoglobin (Bld) [Mass/Vol] 15.6 g/dL High 12.0-15.0 [facility] Comment on above: Performed By: #### L 501.9520, L300.3900, L803.2200, L3100.5450, L800.1280, L100.0100, L506.0400, L501.9985, L3300.0700 ####[facility] [address] [place], [address] IG% 0.200 Normal 0.0-0.9 [facility] Comment on above: Result Comment: IG% - Immature Granulocytes (promyelocytes, myelocytes and metamyelocytes) > 1% indicates that a LEFT SHIFT is Present. Performed By: #### L 501.9520, L300.3900, L803.2200, L3100.5450, L800.1280, L100.0100, L506.0400, L501.9985, L3300.0700 ####[facility] [address] [place], [address] Lymphocytes/100 WBC (Bld) 21.3 % Normal 19-41 [facility] Comment on above: Performed By: #### L 501.9520, L300.3900, L803.2200, L3100.5450, L800.1280, L100.0100, L506.0400, L501.9985, L3300.0700 ####[facility] [address] [place], [address] MCH (RBC) [Entitic mass] 29.9 pg Normal 27.0-32.0 [facility] Comment on above: Performed By: #### L 501.9520, L300.3900, L803.2200, L3100.5450, L800.1280, L100.0100, L506.0400, L501.9985, L3300.0700 ####[facility] [address] [place], [address] MCHC (RBC) [Mass/Vol] 33.3 g/dL Normal 32-36 [facility] Comment on above: Performed By: #### L 501.9520, L300.3900, L803.2200, L3100.5450, L800.1280, L100.0100, L506.0400, L501.9985, L3300.0700 ####[facility] [address] [place], [address] MCV (RBC) [Entitic vol] 89.7 fL Normal 81-99 [facility] Comment on above: Performed By: #### L 501.9520, L300.3900, L803.2200, L3100.5450, L800.1280, L100.0100, L506.0400, L501.9985, L3300.0700 ####[facility] [address] [place], [address] Monocytes/100 WBC (Bld) 10.1 % High 0-10 [facility] Comment on above: Performed By: #### L 501.9520, L300.3900, L803.2200, L3100.5450, L800.1280, L100.0100, L506.0400, L501.9985, L3300.0700 ####[facility] [address] [place], [address] Neutrophils/100 WBC (Bld) 61.9 % Normal 47-70 [facility] Comment on above: Performed By: #### L 501.9520, L300.3900, L803.2200, L3100.5450, L800.1280, L100.0100, L506.0400, L501.9985, L3300.0700 ####[facility] [address] [place], [address] Nucleated RBC (Bld) [#/Vol] 0 10*3/uL Normal 0-5 [facility] Comment on above: Performed By: #### L 501.9520, L300.3900, L803.2200, L3100.5450, L800.1280, L100.0100, L506.0400, L501.9985, L3300.0700 ####[facility] [address] [place], [address] Platelet mean volume (Bld) [Entitic vol] 9.4 fL Normal 6.2-12.0 [facility] Comment on above: Performed By: #### L 501.9520, L300.3900, L803.2200, L3100.5450, L800.1280, L100.0100, L506.0400, L501.9985, L3300.0700 ####[facility] [address] [place], [address] Platelets (Bld) [#/Vol] 273 10*3/uL Normal 150-450 [facility] Comment on above: Performed By: #### L 501.9520, L300.3900, L803.2200, L3100.5450, L800.1280, L100.0100, L506.0400, L501.9985, L3300.0700 ####[facility] [address] [place], [address] RBC (Bld) [#/Vol] 5.22 10*6/uL Normal 4.2-5.4 [facility] Comment on above: Performed By: #### L 501.9520, L300.3900, L803.2200, L3100.5450, L800.1280, L100.0100, L506.0400, L501.9985, L3300.0700 ####[facility] [address] [place], [address] RDW SD 40.3 fl Normal 35.1-43.9 [facility] Comment on above: Performed By: #### L 501.9520, L300.3900, L803.2200, L3100.5450, L800.1280, L100.0100, L506.0400, L501.9985, L3300.0700 ####[facility] [address] [place], [address] WBC (Bld) [#/Vol] 5.7 10*3/uL Normal 4.4-11.0 [facility] Comment on above: Performed By: #### L 501.9520, L300.3900, L803.2200, L3100.5450, L800.1280, L100.0100, L506.0400, L501.9985, L3300.0700 ####[facility] [address] [place], [place], [id number] Gastroenterology Visit Repor ton 12-12-2023 Gastroenterology Visit Report [facility] [address] [place] [address] OFFICE VISIT Date of Service: 12/12/23 MR#: [id number] Acct: [id number] Name: RACHEL MAY Rep #: [id number] 1 : 1950 Provider: Dr. Usman kaplan MD Age/Sex: 73/F Location: [facility] Status: Signed Intake Vital Signs 06/27/23 08:55 [...] Initially noted when she first saw her humane officer, Dr. Calloway; then established with [facility] for osteoarthritis who did not feel she [...] reports d (more content not included)... Normal [facility] Hemoglobin A1con 12-12-2023 HbA1c (Bld) [Mass fraction] 5.1 % Normal 3.8-5.6 [facility] Comment on above: Result Comment: Norm al < 5.7 % Prediabetic 5.7 - 6.4 % Diabetic >or= 6.5 % Please note range changes. Performed By: #### L 501.9520, L300.3900, L803.2200, L3100.5450, L800.1280, L100.0100, L506.0400, L501.9985, L3300.0700 ####[facility] [id number] [place], [place], [id number] Prothrombin Time w/INRon INR Coag (PPP) [Relative time] 1.1 {INR} Normal [facility] Comment on above: Performed By: #### L 501.9520, L300.3900, L803.2200, L3100.5450, L800.1280, L100.0100, L506.0400, L501.9985, L3300.0700 ####[facility] [id number] [place], [address] PT Coag (PPP) [Time] 14.2 s Normal 11.7-14.9 [facility] Comment on above: Performed By: #### L 501.9520, L300.3900, L803.2200, L3100.5450, L800.1280, L100.0100, L506.0400, L501.9985, L3300.0700 ####[facility] [id number] [place], [address] T4 Free Directon 12-12-2023 T4 FREE DIRECT 1.27 ng/dL Normal 0.76-1.46 [facility] Comment on above: Performed By: #### L 501.9520, L300.3900, L803.2200, L3100.5450, L800.1280, L100.0100, L506.0400, L501.9985, L3300.0700 ####[facility] [id number] [place], [place], [phone] Thyroid Stim Hormone (TSH)on 12-12-2023 TSH 0.638 uIU/mL Normal 0.358-3.740 [facility] Comment on above: Performed By: #### L 501.9520, L300.3900, L803.2200, L3100.5450, L800.1280, L100.0100, L506.0400, L501.9985, L3300.0700 ####[facility] [id number] [place], [place], [phone] SCRN MAMM (CAD)W/CARMINA BILATo n 11-28-2023 SCRN MAMM (CAD)W/CARMINA BILAT [facility] Imaging Services [address] [place], [place] [address] SCRN MAMM (CAD)W/CARMINA BILAT MR#: [id number] Acct: [id number] Name: RACHEL MAY Rep #: [id number] : 1950 F 73 From: Bandar yung MD PCP: Dr. Tyron Knight MD Status: REG CLI Study: SCRN MAMM (CAD)W/CARMINA BILAT Date of Exam: 06/21 Exam# [id number] Ordering Dr: Doris Maria NP, NP [id number] MAMMOGRAPHY - BILATERAL SCREENING REASON FOR EXAM: [...] delay biopsy of a clinically suspicious abnormality. [id number] Electronically Signed: Bandar Ponce MD at 10:11 EDT , CC: REE Maria; Dr. Tyron Knight MD Director Sales Training: Signed Normal [facility] Absolute lymphocyte countOrd ered By: Tyron Knight on 05-01-2023 Lymphocytes Auto (Unsp spec) [#/Vol] 1.16 10*3/uL 0.83-4.51 [facility] Basophil percentageOrdered B y: Tyron Knight on 05-01-2023 Basophils/100 WBC (Bld) 1.3 % 0-1 [facility] Bilirubin [Mass/Vol] 0.50 mg/dL 0.20-1.00 [facility] Comment on above: For patients on eltr ombopag therapy, use of Dim[place] TBIL is not recommended. Chloride [Moles/Vol] 108 mmol/L 98-107 [facility] Cholesterol [Mass/Vol] 188 mg/dL <200 [facility] Comment on above: <200 mg/dL Desirable 200-240 mg/dL Borderline >240 mg/dL High Risk Eosinophils/100 WBC (Bld) 2.8 % 0-5 [facility] Glucose [Mass/Vol] 101 mg/dL 74-106 [facility] Comment on above: Fasting Glucose resu lt from 100 to 125 mg/dL suggests IMPAIRED HOMEOSTASIS per A.D.A. criteria. Neutrophils (Bld) [#/Vol] 2.7 10*3/uL 2.0-7.7 [facility] Neutrophils/100 WBC (Bld) 58.2 % 47-70 [facility] Potassium [Moles/Vol] 4.1 mmol/L 3.5-5.1 [facility] Protein [Mass/Vol] 7.1 g/dL 6.4-8.2 [facility] Sodium [Moles/Vol] 140 mmol/L 136-145 [facility] Triglyceride [Mass/Vol] 102 mg/dL <199 [facility] Comment on above: The drugs N-Acetylcy steine and Metamizole may falsely depress this assay.Serum Triglycerides Reference Interval Normal <150 mg/dL Borderline high 150 - 199 mg/dL High 200 - 499 mg/dL Very High > or = 500 mg/dL WBC (Bld) [#/Vol] 4.6 10*3/uL 4.4-11.0 [facility] Blood erythrocytes count (nu mber/volume)Ordered By: Tyron Knight on 05-01-2023 RBC (Bld) [#/Vol] 5.24 10*6/uL 4.2-5.4 [facility] Blood hemoglobin measurement (mass/volume)Ordered By: Tyron Knight on 05-01-2023 Hemoglobin (Bld) [Mass/Vol] 15.5 g/dL 12.0-15.0 [facility] Blood lymphocytes/100 leukoc ytesOrdered By: Tyron Knight on 05-01-2023 Lymphocytes/100 WBC (Bld) 25.0 % 19-41 [facility] Blood monocytes/100 leukocyt esOrdered By: Tyron Knight on 05-01-2023 Monocytes/100 WBC (Bld) 12.5 % 0-10 [facility] Blood platelet mean volumeOr dered By: Tyron Knight on 05-01-2023 Platelet mean volume (Bld) [Entitic vol] 10.4 fL 6.2-12.0 [facility] Determination of erythrocyte mean corpuscular volume (MCV)Ordered By: Tyron Knight on 05-01-2023 MCV (RBC) [Entitic vol] 90.6 fL 81-99 [facility] Hematocrit Auto (Bld) [Volum e fraction]Ordered By: Tyron Knight on 05-01-2023 Hematocrit (Bld) [Volume fraction] 47.5 % 37-47 [facility] Laboratory - Chemistry and C hemistry - challengeOrdered By: Tyron Knight on 05-01-2023 ALP [Catalytic activity/Vol] 126 U/L 45-117 [facility] ALT [Catalytic activity/Vol] 88 U/L 13-56 [facility] CO2 [Moles/Vol] 28.0 mmol/L 21.0-32.0 [facility] Free T4 [Mass/Vol] 0.94 ng/dL 0.76-1.46 [facility] Globulin (S) [Mass/Vol] 3.8 g/dL 2.2-4.2 [facility] Urea nitrogen/Creatinine [Mass ratio] 19.6 mg/mg 10-20 [facility] Laboratory - Hematology and Cell countsOrdered By: Tyron Knight on 05-01-2023 Erythrocyte distribution width (RBC) [Entitic vol] 42.4 fL 35.1-43.9 [facility] Erythrocyte distribution width (RBC) [Ratio] 12.8 % 11.6-14.6 [facility] Immature granulocytes/100 WBC (Bld) 0.200 % 0.0-0.9 [facility] Comment on above: IG% - Immature Granu locytes (promyelocytes, myelocytes and metamyelocytes) > 1% indicates that a LEFT SHIFT is Present. MCH (RBC) [Entitic mass] 29.6 pg 27.0-32.0 [facility] Nucleated RBC/100 WBC (Bld) [Ratio] 0 % 0-5 [facility] MCHC Auto (RBC) [Mass/Vol]Or dered By: Tyron Knight on 05-01-2023 MCHC (RBC) [Mass/Vol] 32.6 g/dL 32-36 [facility] No Panel InformationOrdered By: Tyron Knight on 05-01-2023 Estimated GFR (MDRD) Amer 89 mL/min >60 [facility] Comment on above: GFR Calc Estimated GFR (MDRD) Non-Af Amer 74 mL/min >60 [facility] Comment on above: Non- GFR Calc Thyroid Stimulating Hormone (TSH) 1.12 uIU/mL 0.358-3.74 [facility] Vitamin D 25-Hydroxy 39.2 ng/mL [facility] Comment on above: Vitamin D 25(OH) Sta tus Range Deficiency <20 ng/mL (50nmol/L) Insufficiency 20 - 30 ng/mL (50 - 75 nmol/L) Sufficiency 30 - 100 ng/mL (75 - 250 nmol/L) Toxicity >100 ng/mL (>250 nmol/L) Platelets bldOrdered By: José Miguel Knight on 05-01-2023 Platelets (Bld) [#/Vol] 272 10*3/uL 150-450 [facility] Serum or plasma albumin negra urement (mass/volume)Ordered By: Tyron Knight on 05-01-2023 Albumin [Mass/Vol] 3.3 g/dL 3.2-5.0 [facility] Serum or plasma albumin/glob ulin mass ratioOrdered By: Tyron Knight on 05-01-2023 Albumin/Globulin [Mass ratio] 0.9 {ratio} 0.9-2.4 [facility] Serum or plasma calcium negra urement (mass/volume)Ordered By: Tyron Knight on 05-01-2023 Calcium [Mass/Vol] 8.6 mg/dL 8.5-10.1 [facility] Serum or plasma cholesterol in HDL measurement (mass/volume)Ordered By: Tyron Knight on 05-01-2023 Cholesterol in HDL [Mass/Vol] 56 mg/dL >40 [facility] Comment on above: The drugs N-Acetylcy steine and Metamizole may falsely depress this assay. Reference Range HDL <40 mg/dL Low HDL Cholesterol HDL >or= 60 mg/dL High HDL Cholesterol Serum or plasma cholesterol in VLDL measurement (mass/volume)Ordered By: Tyron Knight on 05-01-2023 Cholesterol in VLDL [Mass/Vol] 20 mg/dL 5-40 [facility] Serum or plasma creatinine m easurement (mass/volume)Ordered By: Tyron Knight on 05-01-2023 Creatinine [Mass/Vol] 0.82 mg/dL 0.55-1.02 [facility] Comment on above: The validity of the calculated GFR & GFRAA in patients over 70 years has not been determined. Clinical correlation is essential. Serum or plasma low density lipoprotein (LDL) cholesterol measurement (mass/volume)Ordered By: Tyron Knight on 05-01-2023 Cholesterol in LDL [Mass/Vol] 112 mg/dL 0-130 [facility] Serum or plasma urea nitroge n measurement (mass/volume)Ordered By: Tyron Knight on 05-01-2023 Urea nitrogen [Mass/Vol] 16 mg/dL 7-18 [facility] Thin prep Papanicolaou smear with manual screeningOrdered By: Tyron Knight on 05-01-2023 Thin prep Papanicolaou smear with manual screening 62 U/L 15-37 [facility] Thin prep Papanicolaou smear with manual screening 4 5-15 [facility] Absolute lymphocyte countOrd ered By: Tyron Knight on 11-07-2022 Lymphocytes Auto (Unsp spec) [#/Vol] 1.47 10*3/uL 0.83-4.51 [facility] Basophil percentageOrdered B y: Tyron Knight on 11-07-2022 Basophils/100 WBC (Bld) 1.3 % 0-1 [facility] Bilirubin [Mass/Vol] 0.50 mg/dL 0.20-1.00 [facility] Comment on above: For patients on eltr ombopag therapy, use of [place] TBIL is not recommended. Chloride [Moles/Vol] 106 mmol/L 98-107 [facility] Cholesterol [Mass/Vol] 165 mg/dL <200 [facility] Comment on above: <200 mg/dL Desirable 200-240 mg/dL Borderline >240 mg/dL High Risk Eosinophils/100 WBC (Bld) 4.3 % 0-5 [facility] Glucose [Mass/Vol] 92 mg/dL 74-106 [facility] Neutrophils (Bld) [#/Vol] 2.9 10*3/uL 2.0-7.7 [facility] Neutrophils/100 WBC (Bld) 55.6 % 47-70 [facility] Potassium [Moles/Vol] 3.8 mmol/L 3.5-5.1 [facility] Protein [Mass/Vol] 7.2 g/dL 6.4-8.2 [facility] Sodium [Moles/Vol] 140 mmol/L 136-145 [facility] Triglyceride [Mass/Vol] 85 mg/dL <199 [facility] Comment on above: The drugs N-Acetylcy steine and Metamizole may falsely depress this assay.Serum Triglycerides Reference Interval Normal <150 mg/dL Borderline high 150 - 199 mg/dL High 200 - 499 mg/dL Very High > or = 500 mg/dL WBC (Bld) [#/Vol] 5.3 10*3/uL 4.4-11.0 [facility] Blood erythrocytes count (nu mber/volume)Ordered By: Tyron Knight on 11-07-2022 RBC (Bld) [#/Vol] 5.08 10*6/uL 4.2-5.4 [facility] Blood hemoglobin measurement (mass/volume)Ordered By: Tyron Knight on 11-07-2022 Hemoglobin (Bld) [Mass/Vol] 15.2 g/dL 12.0-15.0 [facility] Blood lymphocytes/100 leukoc ytesOrdered By: Tyron Knight on 11-07-2022 Lymphocytes/100 WBC (Bld) 27.8 % 19-41 [facility] Blood monocytes/100 leukocyt esOrdered By: Tyron Knight on 11-07-2022 Monocytes/100 WBC (Bld) 10.8 % 0-10 [facility] Blood platelet mean volumeOr dered By: Tyron Knight on 11-07-2022 Platelet mean volume (Bld) [Entitic vol] 10.4 fL 6.2-12.0 [facility] Determination of erythrocyte mean corpuscular volume (MCV)Ordered By: Tyron Knight on 11-07-2022 MCV (RBC) [Entitic vol] 91.5 fL 81-99 [facility] Hematocrit Auto (Bld) [Volum e fraction]Ordered By: Tyron Knight on 11-07-2022 Hematocrit (Bld) [Volume fraction] 46.5 % 37-47 [facility] Laboratory - Chemistry and C hemistry - challengeOrdered By: Tyron Knight on 11-07-2022 ALP [Catalytic activity/Vol] 115 U/L 45-117 [facility] ALT [Catalytic activity/Vol] 29 U/L 13-56 [facility] CO2 [Moles/Vol] 29.0 mmol/L 21.0-32.0 [facility] Free T4 [Mass/Vol] 1.31 ng/dL 0.76-1.46 [facility] Globulin (S) [Mass/Vol] 3.8 g/dL 2.2-4.2 [facility] Urea nitrogen/Creatinine [Mass ratio] 17.2 mg/mg 10-20 [facility] Laboratory - Hematology and Cell countsOrdered By: Tyron Knight on 11-07-2022 Erythrocyte distribution width (RBC) [Entitic vol] 41.8 fL 35.1-43.9 [facility] Erythrocyte distribution width (RBC) [Ratio] 12.5 % 11.6-14.6 [facility] Immature granulocytes/100 WBC (Bld) 0.200 % 0.0-0.9 [facility] Comment on above: IG% - Immature Granu locytes (promyelocytes, myelocytes and metamyelocytes) > 1% indicates that a LEFT SHIFT is Present. MCH (RBC) [Entitic mass] 29.9 pg 27.0-32.0 [facility] Nucleated RBC/100 W[facility] (Bld) [Ratio] 0 % 0[facility] [Mass/Vol]Or dered By: Tyron Knight on 11-07-2022 MCHC (RBC) [Mass/Vol] 32.7 g/dL 32-36 [facility] No Panel InformationOrdered By: Tyron Knight on 11-07-2022 Estimated GFR (MDRD) Amer 89 mL/min >60 [facility] Comment on above: GFR Calc Estimated GFR (MDRD) Non-Af Amer 74 mL/min >60 [facility] Comment on above: Non- GFR Calc Thyroid Stimulating Hormone (TSH) 0.32 uIU/mL 0.358-3.74 [facility] Vitamin D 25-Hydroxy 51.1 ng/mL [facility] Comment on above: Vitamin D 25(OH) Sta tus Range Deficiency <20 ng/mL (50nmol/L) Insufficiency 20 - 30 ng/mL (50 - 75 nmol/L) Sufficiency 30 - 100 ng/mL (75 - 250 nmol/L) Toxicity >100 ng/mL (>250 nmol/L) Platelets bldOrdered By: José Miguel Knight on 11-07-2022 Platelets (Bld) [#/Vol] 260 10*3/uL 150-450 [facility] Serum or plasma albumin negra urement (mass/volume)Ordered By: Tyron Knight on 11-07-2022 Albumin [Mass/Vol] 3.4 g/dL 3.2-5.0 [facility] Serum or plasma albumin/glob ulin mass ratioOrdered By: Tyron Knight on 11-07-2022 Albumin/Globulin [Mass ratio] 0.9 {ratio} 0.9-2.4 [facility] Serum or plasma calcium negra urement (mass/volume)Ordered By: Tyron Knight on 11-07-2022 Calcium [Mass/Vol] 8.7 mg/dL 8.5-10.1 [facility] Serum or plasma cholesterol in HDL measurement (mass/volume)Ordered By: Tyron Knight on 11-07-2022 Cholesterol in HDL [Mass/Vol] 53 mg/dL >40 [facility] Comment on above: The drugs N-Acetylcy steine and Metamizole may falsely depress this assay. Reference Range HDL <40 mg/dL Low HDL Cholesterol HDL >or= 60 mg/dL High HDL Cholesterol Serum or plasma cholesterol in VLDL measurement (mass/volume)Ordered By: Tyron Knight on 11-07-2022 Cholesterol in VLDL [Mass/Vol] 17 mg/dL 5-40 [facility] Serum or plasma creatinine m easurement (mass/volume)Ordered By: Tyron Knight on 11-07-2022 Creatinine [Mass/Vol] 0.81 mg/dL 0.55-1.02 [facility] Comment on above: The validity of the calculated GFR & GFRAA in patients over 70 years has not been determined. Clinical correlation is essential. Serum or plasma low density lipoprotein (LDL) cholesterol measurement (mass/volume)Ordered By: Tyron Knight on 11-07-2022 Cholesterol in LDL [Mass/Vol] 95 mg/dL 0-130 [facility] Serum or plasma urea nitroge n measurement (mass/volume)Ordered By: Tyron Knight on 11-07-2022 Urea nitrogen [Mass/Vol] 14 mg/dL 7-18 [facility] Thin prep Papanicolaou smear with manual screeningOrdered By: Tyron Knight on 11-07-2022 Thin prep Papanicolaou smear with manual screening 23 U/L 15-37 [facility] Thin prep Papanicolaou smear with manual screening 5 5-15 [facility] Absolute lymphocyte countOrd ered By: Dr. Knight on 05-10-2022 Lymphocytes Auto (Unsp spec) [#/Vol] 1.24 10*3/uL 0.83-4.51 [facility] Basophil percentageOrdered B y: Dr. Knight on 05-10-2022 Basophils/100 WBC (Bld) 1.0 % 0-1 [facility] Bilirubin [Mass/Vol] 0.50 mg/dL 0.20-1.00 [facility] Comment on above: For patients on eltr ombopag therapy, use of [place] TBIL is not recommended. Chloride [Moles/Vol] 103 mmol/L 98-107 [facility] Eosinophils/100 WBC (Bld) 2.3 % 0-5 [facility] Glucose [Mass/Vol] 90 mg/dL 74-106 [facility] Neutrophils (Bld) [#/Vol] 3.1 10*3/uL 2.0-7.7 [facility] Neutrophils/100 WBC (Bld) 58.1 % 47-70 [facility] Potassium [Moles/Vol] 4.0 mmol/L 3.5-5.1 [facility] Protein [Mass/Vol] 7.3 g/dL 6.4-8.2 [facility] Sodium [Moles/Vol] 141 mmol/L 136-145 [facility] WBC (Bld) [#/Vol] 5.3 10*3/uL 4.4-11.0 [facility] Blood erythrocytes count (nu mber/volume)Ordered By: Dr. Knight on 05-10-2022 RBC (Bld) [#/Vol] 5.41 10*6/uL 4.2-5.4 [facility] Blood hemoglobin measurement (mass/volume)Ordered By: Dr. Knight on 05-10-2022 Hemoglobin (Bld) [Mass/Vol] 16.2 g/dL 12.0-15.0 [facility] Blood lymphocytes/100 leukoc ytesOrdered By: Dr. Knight on 05-10-2022 Lymphocytes/100 WBC (Bld) 23.6 % 19-41 [facility] Blood monocytes/100 leukocyt esOrdered By: Dr. Knight on 05-10-2022 Monocytes/100 WBC (Bld) 14.6 % 0-10 [facility] Blood platelet mean volumeOr dered By: Dr. Knight on 05-10-2022 Platelet mean volume (Bld) [Entitic vol] 10.1 fL 6.2-12.0 [facility] Determination of erythrocyte mean corpuscular volume (MCV)Ordered By: Dr. Knight on 05-10-2022 MCV (RBC) [Entitic vol] 90.9 fL 81-99 [facility] Hematocrit Auto (Bld) [Volum e fraction]Ordered By: Dr. Knight on 05-10-2022 Hematocrit (Bld) [Volume fraction] 49.2 % 37-47 [facility] Laboratory - Chemistry and C hemistry - challengeOrdered By: Dr. Knight on 05-10-2022 ALP [Catalytic activity/Vol] 161 U/L 45-117 [facility] ALT [Catalytic activity/Vol] 40 U/L 13-56 [facility] CO2 [Moles/Vol] 29.0 mmol/L 21.0-32.0 [facility] Free T4 [Mass/Vol] 1.05 ng/dL 0.76-1.46 [facility] Globulin (S) [Mass/Vol] 3.7 g/dL 2.2-4.2 [facility] Urea nitrogen/Creatinine [Mass ratio] 14.7 mg/mg 10-20 [facility] Laboratory - Hematology and Cell countsOrdered By: Dr. Knight on 05-10-2022 Erythrocyte distribution width (RBC) [Entitic vol] 42.0 fL 35.1-43.9 [facility] Erythrocyte distribution width (RBC) [Ratio] 12.7 % 11.6-14.6 [facility] Immature granulocytes/100 WBC (Bld) 0.400 % 0.0-0.9 [facility] Comment on above: IG% - Immature Granu locytes (promyelocytes, myelocytes and metamyelocytes) > 1% indicates that a LEFT SHIFT is Present. MCH (RBC) [Entitic mass] 29.9 pg 27.0-32.0 [facility] Nucleated RBC/100 WBC (Bld) [Ratio] 0 % 0-5 [facility] MCHC Auto (RBC) [Mass/Vol]Or dered By: Dr. Knight on 05-10-2022 MCHC (RBC) [Mass/Vol] 32.9 g/dL 32-36 [facility] No Panel InformationOrdered By: Dr. Knight on 05-10-2022 Estimated GFR (MDRD) Amer 75 mL/min >60 [facility] Comment on above: GFR Calc Estimated GFR (MDRD) Non-Af Amer 62 mL/min >60 [facility] Comment on above: Non- GFR Calc Thyroid Stimulating Hormone (TSH) 1.47 uIU/mL 0.358-3.74 [facility] Vitamin D 25-Hydroxy 37.6 ng/mL [facility] Comment on above: Vitamin D 25(OH) Sta tus Range Deficiency <20 ng/mL (50nmol/L) Insufficiency 20 - 30 ng/mL (50 - 75 nmol/L) Sufficiency 30 - 100 ng/mL (75 - 250 nmol/L) Toxicity >100 ng/mL (>250 nmol/L) Platelets bldOrdered By: Dr. Knight on 05-10-2022 Platelets (Bld) [#/Vol] 316 10*3/uL 150-450 [facility] Serum or plasma albumin negra urement (mass/volume)Ordered By: Dr. Knight on 05-10-2022 Albumin [Mass/Vol] 3.6 g/dL 3.2-5.0 [facility] Serum or plasma albumin/glob ulin mass ratioOrdered By: Dr. Knight on 05-10-2022 Albumin/Globulin [Mass ratio] 1.0 {ratio} 0.9-2.4 [facility] Serum or plasma calcium negra urement (mass/volume)Ordered By: Dr. Knight on 05-10-2022 Calcium [Mass/Vol] 9.3 mg/dL 8.5-10.1 [facility] Serum or plasma creatinine m easurement (mass/volume)Ordered By: Dr. Knight on 05-10-2022 Creatinine [Mass/Vol] 0.95 mg/dL 0.55-1.02 [facility] Comment on above: The validity of the calculated GFR & GFRAA in patients over 70 years has not been determined. Clinical correlation is essential. Serum or plasma urea nitroge n measurement (mass/volume)Ordered By: Dr. Knight on 05-10-2022 Urea nitrogen [Mass/Vol] 14 mg/dL 7-18 [facility] Thin prep Papanicolaou smear with manual screeningOrdered By: Dr. Knight on 05-10-2022 Thin prep Papanicolaou smear with manual screening 22 U/L 15-37 [facility] Thin prep Papanicolaou smear with manual screening 9 5-15 [facility] Absolute lymphocyte countOrd ered By: Dr. Knight on 01-29-2022 Lymphocytes Auto (Unsp spec) [#/Vol] 1.54 10*3/uL 0.83-4.51 [facility] Basophil percentageOrdered B y: Dr. Knight on 01-29-2022 Basophils/100 WBC (Bld) 0.9 % 0-1 [facility] Bilirubin [Mass/Vol] 0.30 mg/dL 0.20-1.00 [facility] Comment on above: For patients on eltr ombopag therapy, use of [place] TBIL is not recommended. Chloride [Moles/Vol] 106 mmol/L 98-107 [facility] Cholesterol [Mass/Vol] 206 mg/dL <200 [facility] Comment on above: <200 mg/dL Desirable 200-240 mg/dL Borderline >240 mg/dL High Risk Eosinophils/100 WBC (Bld) 2.5 % 0-5 [facility] Glucose [Mass/Vol] 93 mg/dL 74-106 [facility] Neutrophils (Bld) [#/Vol] 5.1 10*3/uL 2.0-7.7 [facility] Neutrophils/100 WBC (Bld) 67.9 % 47-70 [facility] Potassium [Moles/Vol] 4.0 mmol/L 3.5-5.1 [facility] Protein [Mass/Vol] 7.9 g/dL 6.4-8.2 [facility] Sodium [Moles/Vol] 140 mmol/L 136-145 [facility] Triglyceride [Mass/Vol] 83 mg/dL <199 [facility] Comment on above: The drugs N-Acetylcy steine and Metamizole may falsely depress this assay.Serum Triglycerides Reference Interval Normal <150 mg/dL Borderline high 150 - 199 mg/dL High 200 - 499 mg/dL Very High > or = 500 mg/dL WBC (Bld) [#/Vol] 7.5 10*3/uL 4.4-11.0 [facility] Blood erythrocytes count (nu mber/volume)Ordered By: Dr. Knight on 01-29-2022 RBC (Bld) [#/Vol] 5.34 10*6/uL 4.2-5.4 [facility] Blood hemoglobin measurement (mass/volume)Ordered By: Dr. Knight on 01-29-2022 Hemoglobin (Bld) [Mass/Vol] 16.3 g/dL 12.0-15.0 [facility] Blood lymphocytes/100 leukoc ytesOrdered By: Dr. Knight on 01-29-2022 Lymphocytes/100 WBC (Bld) 20.5 % 19-41 [facility] Blood monocytes/100 leukocyt esOrdered By: Dr. Knihgt on 01-29-2022 Monocytes/100 WBC (Bld) 7.9 % 0-10 [facility] Blood platelet mean volumeOr dered By: Dr. Knight on 01-29-2022 Platelet mean volume (Bld) [Entitic vol] 9.9 fL 6.2-12.0 [facility] Determination of erythrocyte mean corpuscular volume (MCV)Ordered By: Dr. Knight on 01-29-2022 MCV (RBC) [Entitic vol] 90.4 fL 81-99 [facility] Hematocrit Auto (Bld) [Volum e fraction]Ordered By: Dr. Knight on 01-29-2022 Hematocrit (Bld) [Volume fraction] 48.3 % 37-47 [facility] Laboratory - Chemistry and C hemistry - challengeOrdered By: Dr. Knight on 01-29-2022 ALP [Catalytic activity/Vol] 163 U/L 45-117 [facility] ALT [Catalytic activity/Vol] 95 U/L 13-56 [facility] CO2 [Moles/Vol] 28.0 mmol/L 21.0-32.0 [facility] Free T4 [Mass/Vol] 0.77 ng/dL 0.76-1.46 [facility] Globulin (S) [Mass/Vol] 4.5 g/dL 2.2-4.2 [facility] Transferrin [Mass/Vol] 255 mg/dL 192-364 [facility] Comment on above: Performed at: [address] [id number] Director: Varun Jo PhD, Phone: [phone] Urea nitrogen/Creatinine [Mass ratio] 18.0 mg/mg 10-20 [facility] Laboratory - Hematology and Cell countsOrdered By: Dr. Knight on 01-29-2022 Erythrocyte distribution width (RBC) [Entitic vol] 43.3 fL 35.1-43.9 [facility] Erythrocyte distribution width (RBC) [Ratio] 13.1 % 11.6-14.6 [facility] Immature granulocytes/100 WBC (Bld) 0.300 % 0.0-0.9 [facility] Comment on above: IG% - Immature Granu locytes (promyelocytes, myelocytes and metamyelocytes) > 1% indicates that a LEFT SHIFT is Present. MCH (RBC) [Entitic mass] 30.5 pg 27.0-32.0 [facility] Nucleated RBC/100 WBC (Bld) [Ratio] 0 % 0-5 [facility] MCHC Auto (RBC) [Mass/Vol]Or dered By: Dr. Knight on 01-29-2022 MCHC (RBC) [Mass/Vol] 33.7 g/dL 32-36 [facility] No Panel InformationOrdered By: Dr. Knight on 01-29-2022 Estimated GFR (MDRD) Amer 81 mL/min >60 [facility] Comment on above: GFR Calc Estimated GFR (MDRD) Non-Af Amer 67 mL/min >60 [facility] Comment on above: Non- GFR Calc Thyroid Stimulating Hormone (TSH) 4.10 uIU/mL 0.358-3.74 [facility] Total Iron Binding Capacity 307 ug/dL 250-450 [facility] Vitamin D 25-Hydroxy 37.7 ng/mL [facility] Comment on above: Vitamin D 25(OH) Sta tus Range Deficiency <20 ng/mL (50nmol/L) Insufficiency 20 - 30 ng/mL (50 - 75 nmol/L) Sufficiency 30 - 100 ng/mL (75 - 250 nmol/L) Toxicity >100 ng/mL (>250 nmol/L) Platelets bldOrdered By: Dr. Knight on 01-29-2022 Platelets (Bld) [#/Vol] 316 10*3/uL 150-450 [facility] Serum or plasma albumin negra urement (mass/volume)Ordered By: Dr. Knight on 01-29-2022 Albumin [Mass/Vol] 3.4 g/dL 3.2-5.0 [facility] Serum or plasma albumin/glob ulin mass ratioOrdered By: Dr. Knight on 01-29-2022 Albumin/Globulin [Mass ratio] 0.8 {ratio} 0.9-2.4 [facility] Serum or plasma calcium negra urement (mass/volume)Ordered By: Dr. Knight on 01-29-2022 Calcium [Mass/Vol] 9.0 mg/dL 8.5-10.1 [facility] Serum or plasma cholesterol in HDL measurement (mass/volume)Ordered By: Dr. Knight on 01-29-2022 Cholesterol in HDL [Mass/Vol] 60 mg/dL >40 [facility] Comment on above: The drugs N-Acetylcy steine and Metamizole may falsely depress this assay. Reference Range HDL <40 mg/dL Low HDL Cholesterol HDL >or= 60 mg/dL High HDL Cholesterol Serum or plasma cholesterol in VLDL measurement (mass/volume)Ordered By: Dr. Knight on 01-29-2022 Cholesterol in VLDL [Mass/Vol] 17 mg/dL 5-40 [facility] Serum or plasma creatinine m easurement (mass/volume)Ordered By: Dr. Knight on 01-29-2022 Creatinine [Mass/Vol] 0.89 mg/dL 0.55-1.02 [facility] Comment on above: The validity of the calculated GFR & GFRAA in patients over 70 years has not been determined. Clinical correlation is essential. Serum or plasma ferritin rajesh surement (mass/volume)Ordered By: Dr. Knight on 01-29-2022 Ferritin [Mass/Vol] 70 ng/mL 8-252 [facility] Serum or plasma low density lipoprotein (LDL) cholesterol measurement (mass/volume)Ordered By: Dr. Knight on 01-29-2022 Cholesterol in LDL [Mass/Vol] 129 mg/dL 0-130 [facility] Serum or plasma urea nitroge n measurement (mass/volume)Ordered By: Dr. Knight on 01-29-2022 Urea nitrogen [Mass/Vol] 16 mg/dL 7-18 [facility] Thin prep Papanicolaou smear with manual screeningOrdered By: Dr. Knight on 01-29-2022 Thin prep Papanicolaou smear with manual screening 59 U/L 15-37 [facility] Thin prep Papanicolaou smear with manual screening 6 5-15 [facility] Absolute lymphocyte counton 12-19-2021 Lymphocytes Auto (Unsp spec) [#/Vol] 2.04 10*3/uL 0.83-4.51 [facility] Work Phone: [phone] Aldolase ser/plason 12-20-19 22 Aldolase [Catalytic activity/Vol] 7.9 mU/mL 3.3-10.3 [facility] Work Phone: [phone] Comment on above: Performed at: - [address] [id number] Director: Varun Jo PhD, Phone: [phone] at: [facility] [id number] Director: Kiko Dent MD, Phone: [phone] Atypical perinuclear antineu trophil cytoplasmic antibodies measurementon 12-19-2021 Neutrophil cytoplasmic Ab.perinuclear.atypica l IF (S) [Titer] <1:20 titer Neg:<1:20 [facility] Work Phone: [phone] Comment on above: The atypical pANCA p attern has been observed in asignificant percentage of patients with ulcerative colitis,primary sclerosing cholangitis and autoimmune hepatitis. Basophil percentageon 2021 Basophil percentage < 10.0 umol/L 11-32 [facility] Work Phone: Basophil percentage < 0.2 AI 0.0-0.9 [facility] Work Phone: Basophils/100 WBC (Bld) 1.0 % 0-1 [facility] Work Phone: Bilirubin [Mass/Vol] 0.40 mg/dL 0.20-1.00 [facility] Work Phone: Comment on above: For patients on eltr ombopag therapy, use of Dimension [place] TBIL is not recommended. Chloride [Moles/Vol] 103 mmol/L 98-107 [facility] Work Phone: Eosinophils/100 WBC (Bld) 2.1 % 0-5 [facility] Work Phone: [phone] Glucose [Mass/Vol] 78 mg/dL 74-106 [facility] Work Phone: [phone] Neutrophils (Bld) [#/Vol] 4.4 10*3/uL 2.0-7.7 [facility] Work Phone: Neutrophils/100 WBC (Bld) 61.1 % 47-70 [facility] Work Phone: Potassium [Moles/Vol] 4.0 mmol/L 3.5-5.1 [facility] Work Phone: Protein [Mass/Vol] 7.9 g/dL 6.4-8.2 [facility] Work Phone: Sodium [Moles/Vol] 139 mmol/L 136-145 [facility] Work Phone: WBC (Bld) [#/Vol] 7.2 10*3/uL 4.4-11.0 [facility] Work Phone: [phone] Blood erythrocytes count (nu mber/volume)on 12-19-2021 RBC (Bld) [#/Vol] 5.61 10*6/uL 4.2-5.4 [facility] Work Phone: Blood hemoglobin measurement (mass/volume)on 12-19-2021 Hemoglobin (Bld) [Mass/Vol] 16.6 g/dL 12.0-15.0 [facility] Work Phone: [phone] Blood lymphocytes/100 leukoc yteson 12-19-2021 Lymphocytes/100 WBC (Bld) 28.2 % 19-41 [facility] Work Phone: [phone] Blood monocytes/100 leukocyt eson 12-19-2021 Monocytes/100 WBC (Bld) 7.5 % 0-10 [facility] Work Phone: [phone] Blood platelet mean volumeon 12-19-2021 Platelet mean volume (Bld) [Entitic vol] 10.4 fL 6.2-12.0 [facility] Work Phone: Determination of erythrocyte mean corpuscular volume (MCV)on 12-19-2021 MCV (RBC) [Entitic vol] 88.4 fL 81-99 [facility] Work Phone: Erythrocyte sedimentation ra oli 12-19-2021 ESR (Bld) [Velocity] 19 mm/h 0-30 [facility] Work Phone: Hematocrit Auto (Bld) [Volum e fraction]on 12-19-2021 Hematocrit (Bld) [Volume fraction] 49.6 % 37-47 [facility] Work Phone: INR in Blood by Coagulation assayon 12-19-2021 INR Coag (Bld) [Relative time] 1.0 {INR} [facility] Work Phone: Laboratory - Chemistry and C hemistry - challengeon 12-19-2021 ALP [Catalytic activity/Vol] 157 U/L 45-117 [facility] Work Phone: ALT [Catalytic activity/Vol] 77 U/L 13-56 [facility] Work Phone: Amylase [Catalytic activity/Vol] 214 U/L 5-55 [facility] Work Phone: CK [Catalytic activity/Vol] 101 U/L 26-192 [facility] Work Phone: CO2 [Moles/Vol] 30.0 mmol/L 21.0-32.0 [facility] Work Phone: Globulin (S) [Mass/Vol] 4.1 g/dL 2.2-4.2 [facility] Work Phone: Urea nitrogen/Creatinine [Mass ratio] 15.8 mg/mg 10-20 [facility] Work Phone: Laboratory - Coagulationon 0 12-19-2021 PT Coag (PPP) [Time] 12.7 s 11.7-14.9 [facility] Work Phone: Laboratory - Hematology and Cell countson 12-19-2021 Erythrocyte distribution width (RBC) [Entitic vol] 40.4 fL 35.1-43.9 [facility] Work Phone: Erythrocyte distribution width (RBC) [Ratio] 12.4 % 11.6-14.6 [facility] Work Phone: Immature granulocytes/100 WBC (Bld) 0.100 % 0.0-0.9 [facility] Work Phone: Comment on above: IG% - Immature Granu locytes (promyelocytes, myelocytes and metamyelocytes) > 1% indicates that a LEFT SHIFT is Present. MCH (RBC) [Entitic mass] 29.6 pg 27.0-32.0 [facility] Work Phone: Nucleated RBC/100 WBC (Bld) [Ratio] 0 % 0-5 [facility] Work Phone: MCHC Auto (RBC) [Mass/Vol]on 12-19-2021 MCHC (RBC) [Mass/Vol] 33.5 g/dL 32-36 [facility] Work Phone: No Panel Informationon 12-19 Centromere B Antibody <0.2 AI 0.0-0.9 [facility] Work Phone: Ceruloplasmin 27.6 mg/dL 19.0-39.0 [facility] Work Phone: Estimated GFR (MDRD) Amer 89 mL/min >60 [facility] Work Phone: Comment on above: GFR Calc Estimated GFR (MDRD) Non-Af Amer 73 mL/min >60 [facility] Work Phone: Comment on above: Non- GFR Calc Haptoglobin 88 mg/dL 37-355 [facility] Work Phone: [employer] Antibody 0.2 AI 0.0-0.9 [facility] Work Phone: Vitamin D 25-Hydroxy 44.8 ng/mL [facility] Work Phone: Comment on above: Vitamin D 25(OH) Sta tus Range Deficiency <20 ng/mL (50nmol/L) Insufficiency 20 - 30 ng/mL (50 - 75 nmol/L) Sufficiency 30 - 100 ng/mL (75 - 250 nmol/L) Toxicity >100 ng/mL (>250 nmol/L) Platelets bldon 12-19-2021 Platelets (Bld) [#/Vol] 281 10*3/uL 150-450 [facility] Work Phone: Serum DNA double strand anti body assay (units/volume)on 12-19-2021 DNA double strand Ab Qn (S) [IU]/mL 0-9 [facility] Work Phone: Comment on above: Negative <5 Equivoca l 5 - 9 Positive >9 Serum Anaid-1 antibody assay (u nits/volume)on 12-19-2021 Anaid-1 extractable nuclear Ab Qn (S) <0.2 AI 0.0-0.9 [facility] Work Phone: Serum Scl-70 extractable nuc lear antibody assay (units/volume)on 12-19-2021 SCL-70 extractable nuclear Ab Qn (S) 0.2 AI 0.0-0.9 [facility] Work Phone: Serum Santacruz extractable nucl ear antibody detectionon 12-19-2021 Santacruz extractable nuclear Ab Ql (S) <0.2 AI 0.0-0.9 [facility] Work Phone: Serum classic neutrophil cyt oplasmic antibody assay (units/volume)on 12-19-2021 Neutrophil cytoplasmic Ab.classic Qn (S) <1:20 titer Neg:<1:20 [facility] Work Phone: Serum mitochondria antibody detectionon 12-19-2021 Mitochondria Ab Ql (S) <20.0 Units 0.0-20.0 [facility] Work Phone: Comment on above: Negative 0.0 - 20.0 Equivocal 20.1 - 24.9 Positive >24.9Mitochondrial (M2) Antibodies are found in 90-96% ofpatients with primary biliary cirrhosis. Serum or plasma C reactive p rotein measurement (mass/volume)on 12-19-2021 CRP [Mass/Vol] mg/L 0.0-3.0 [facility] Work Phone: Comment on above: C-Reactive Protein ( CRP) provides useful information for thediagnosis, therapy and monitoring of inflammatory processesand associated diseases. For the evaluation of Relative Riskfor Cardiovascular Disease, a High Sensitivity CRP (HSCRP)should be ordered. Serum or plasma actin IgG an tibody assay (units/volume)on 12-19-2021 Actin IgG Qn 10 Units 0-19 [facility] Work Phone: Comment on above: Negative 0 - 19 Weak positive 20 - 30 Moderate to strong positive >30 Actin Antibodies are found in 52-85% of patients with autoimmune hepatitis or chronic active hepatitis and in 22% of patients with primary biliary cirrhosis. Serum or plasma albumin negra urement (mass/volume)on 12-19-2021 Albumin [Mass/Vol] 3.8 g/dL 3.2-5.0 [facility] Work Phone: Serum or plasma albumin/glob ulin mass ratioon 12-19-2021 Albumin/Globulin [Mass ratio] 0.9 {ratio} 0.9-2.4 [facility] Work Phone: Serum or plasma angiotensin converting enzyme measurement (enzymatic activity/volume)on 12-19-2021 Angiotensin converting enzyme [Catalytic activity/Vol] 40 U/L [facility] Work Phone: Serum or plasma bone alkalin e phosphatase/total alkaline phosphatase ratio (catalyticon 12-19-2021 ALP Bone [Catalytic fraction] 34 % [facility] Work Phone: Serum or plasma calcitriol m easurement (mass/volume)on 12-19-2021 1,25-dihydroxyvitamin D3 [Mass/Vol] 31.4 pg/mL 24.8-81.5 [facility] Work Phone: Comment on above: Please note refere nce interval changePerformed at: [facility] [address] [id number] Director: Varun Jo PhD, Phone: [phone] at: [facility] [id number] [place], [place] [id number] Director: Kiko Dent MD, Phone: [phone] Serum or plasma calcium negra urement (mass/volume)on 12-19-2021 Calcium [Mass/Vol] 9.1 mg/dL 8.5-10.1 oste r [facility] Work Phone: Serum or plasma creatinine m easurement (mass/volume)on 12-19-2021 Creatinine [Mass/Vol] 0.82 mg/dL 0.55-1.02 [address] [facility] Work Phone: Comment on above: The validity of the calculated GFR & GFRAA in patients over 70 years has not been determined. Clinical correlation is essential. Serum or plasma ferritin rajesh surement (mass/volume)on 12-19-2021 Ferritin [Mass/Vol] 101 ng/mL [facility] Work Phone: Serum or plasma intestinal a lkaline phosphatase/total alkaline phosphatase ratio (nicko 12-19-2021 ALP Intest [Catalytic fraction] 1 % 0-18 [facility] Work Phone: Serum or plasma liver alkali ne phosphatase/total alkaline phosphatase ratio (catalytion 12-19-2021 ALP Liver [Catalytic fraction] 65 % 18-85 [facility] Work Phone: Serum or plasma urea nitroge n measurement (mass/volume)on 12-19-2021 Urea nitrogen [Mass/Vol] 13 mg/dL 7-18 [facility] Work Phone: Serum perinuclear neutrophil cytoplasmic antibody titer by immunofluorescenceon 12-19-2021 Neutrophil cytoplasmic Ab.perinuclear IF (S) [Titer] <1:20 titer Neg:<1:20 [facility] Work Phone: Comment on above: The presence of posi tive fluorescence exhibiting P-ANCA orC-ANCA patterns alone is not specific for the diagnosis ofWegener's Granulomatosis (WG) or microscopic polyangiitis.Decisions about treatment should not be based solely onANCA IFA results. The [employer] ANCA [employer] Consensusrecommends follow up testing of positive sera with both KY-3 and MPO-ANCA enzyme immunoassays. As many as 5% serumsamples are positive only by EIA. Ref. AM J Clin Qyplei1202;111:507-513. Thin prep Papanicolaou smear with manual screeningon 12-19-2021 Thin prep Papanicolaou smear with manual screening 51 U/L 15-37 [facility] Work Phone: Thin prep Papanicolaou smear with manual screening 6 5-15 [facility] Work Phone: Thin prep Papanicolaou smear with manual screening 216 U/L 84-246 [facility] Work Phone: Thin prep Papanicolaou smear with manual screening 163 IU/L 44-121 [facility] Work Phone: Thin prep Papanicolaou smear with manual screening 130 ug/dL 80-158 [facility] Work Phone: Comment on above: Detection Limit = 5 Iron measurement (mass/mass) on 09-28-2021 Iron (Unsp spec) [Mass/Mass] 90 ug/dL 50-170 [facility] Work Phone: Laboratory - Chemistry and C hemistry - challengeon 09-28-2021 Transferrin [Mass/Vol] 232 mg/dL 192-364 [facility] Work Phone: Comment on above: Performed at: [place] [id number] Director: Varun Jo PhD, Phone: [phone] No Panel Informationon 09-28 Total Iron Binding Capacity 306 ug/dL 250-450 [facility] Work Phone: Serum or plasma ferritin rajesh surement (mass/volume)on 09-28-2021 Ferritin [Mass/Vol] 132 ng/mL 8-252 [facility] Work Phone: Serum or plasma iron saturat ion measurement (mass fraction)on 09-28-2021 Iron saturation [Mass fraction] 29.4 % 15.0-55.0 [facility] Work Phone: Absolute lymphocyte counton 09-27-2021 Lymphocytes Auto (Unsp spec) [#/Vol] 1.30 10*3/uL 0.83-4.51 [facility] Work Phone: Basophil percentageon 2021 Basophils/100 WBC (Bld) 1.4 % 0-1 [facility] Work Phone: Bilirubin [Mass/Vol] 0.50 mg/dL 0.20-1.00 [facility] Work Phone: Comment on above: For patients on eltr ombopag therapy, use of Dimension [place] TBIL is not recommended. Chloride [Moles/Vol] 107 mmol/L 98-107 [facility] Work Phone: Eosinophils/100 WBC (Bld) 4.2 % 0-5 [facility] Work Phone: Glucose [Mass/Vol] 95 mg/dL 74-106 [facility] Work Phone: Neutrophils (Bld) [#/Vol] 2.8 10*3/uL 2.0-7.7 [facility] Work Phone: Neutrophils/100 WBC (Bld) 55.4 % 47-70 [facility] Work Phone: Potassium [Moles/Vol] 4.1 mmol/L 3.5-5.1 [facility] Work Phone: Protein [Mass/Vol] 7.3 g/dL 6.4-8.2 [facility] Work Phone: Sodium [Moles/Vol] 140 mmol/L 136-145 [facility] Work Phone: WBC (Bld) [#/Vol] 5.0 10*3/uL 4.4-11.0 [facility] Work Phone: Blood erythrocytes count (nu mber/volume)on 09-27-2021 RBC (Bld) [#/Vol] 5.12 10*6/uL 4.2-5.4 [facility] Work Phone: Blood hemoglobin measurement (mass/volume)on 09-27-2021 Hemoglobin (Bld) [Mass/Vol] 15.3 g/dL 12.0-15.0 [facility] Work Phone: Blood lymphocytes/100 leukoc yteson 09-27-2021 Lymphocytes/100 WBC (Bld) 25.9 % 19-41 [facility] Work Phone: Blood monocytes/100 leukocyt eson 09-27-2021 Monocytes/100 WBC (Bld) 12.9 % 0-10 [facility] Work Phone: Blood platelet mean volumeon 09-27-2021 Platelet mean volume (Bld) [Entitic vol] 10.3 fL 6.2-12.0 [facility] Work Phone: Determination of erythrocyte mean corpuscular volume (MCV)on 09-27-2021 MCV (RBC) [Entitic vol] 90.4 fL 81-99 [facility] Work Phone: Hematocrit Auto (Bld) [Volum e fraction]on 09-27-2021 Hematocrit (Bld) [Volume fraction] 46.3 % 37-47 [facility] Work Phone: Laboratory - Chemistry and C hemistry - challengeon 09-27-2021 ALP [Catalytic activity/Vol] 179 U/L 45-117 [facility] Work Phone: ALT [Catalytic activity/Vol] 125 U/L 13-56 [facility] Work Phone: CO2 [Moles/Vol] 29.0 mmol/L 21.0-32.0 [facility] Work Phone: Free T4 [Mass/Vol] 1.18 ng/dL 0.76-1.46 [facility] Work Phone: Globulin (S) [Mass/Vol] 4.0 g/dL 2.2-4.2 [facility] Work Phone: Urea nitrogen/Creatinine [Mass ratio] 17.8 mg/mg 10-20 [facility] Work Phone: Laboratory - Hematology and Cell countson 09-27-2021 Erythrocyte distribution width (RBC) [Entitic vol] 42.8 fL 35.1-43.9 [facility] Work Phone: Erythrocyte distribution width (RBC) [Ratio] 12.9 % 11.6-14.6 [facility] Work Phone: Immature granulocytes/100 WBC (Bld) 0.200 % 0.0-0.9 [facility] Work Phone: Comment on above: IG% - Immature Granu locytes (promyelocytes, myelocytes and metamyelocytes) > 1% indicates that a LEFT SHIFT is Present. MCH (RBC) [Entitic mass] 29.9 pg 27.0-32.0 [facility] Work Phone: Nucleated RBC/100 WBC (Bld) [Ratio] 0 % 0-5 [facility] Work Phone: MCHC Auto (RBC) [Mass/Vol]on 09-27-2021 MCHC (RBC) [Mass/Vol] 33.0 g/dL 32-36 [facility] Work Phone: No Panel Informationon 09-27 Estimated GFR (MDRD) Amer 86 mL/min >60 [facility] Work Phone: Comment on above: GFR Calc Estimated GFR (MDRD) Non-Af Amer 71 mL/min >60 [facility] Work Phone: Comment on above: Non- GFR Calc Vitamin D 25-Hydroxy 39.3 ng/mL [facility] Work Phone: Comment on above: Vitamin D 25(OH) Sta tus Range Deficiency <20 ng/mL (50nmol/L) Insufficiency 20 - 30 ng/mL (50 - 75 nmol/L) Sufficiency 30 - 100 ng/mL (75 - 250 nmol/L) Toxicity >100 ng/mL (>250 nmol/L) Platelets bldon 09-27-2021 Platelets (Bld) [#/Vol] 293 10*3/uL 150-450 [facility] Work Phone: Serum or plasma albumin negra urement (mass/volume)on 09-27-2021 Albumin [Mass/Vol] 3.3 g/dL 3.2-5.0 [facility] Work Phone: Serum or plasma albumin/glob ulin mass ratioon 09-27-2021 Albumin/Globulin [Mass ratio] 0.8 {ratio} 0.9-2.4 [facility] Work Phone: Serum or plasma calcium negra urement (mass/volume)on 09-27-2021 Calcium [Mass/Vol] 9.1 mg/dL 8.5-10.1 [facility] Work Phone: Serum or plasma creatinine m easurement (mass/volume)on 09-27-2021 Creatinine [Mass/Vol] 0.84 mg/dL 0.55-1.02 [facility] Work Phone: Comment on above: The validity of the calculated GFR & GFRAA in patients over 70 years has not been determined. Clinical correlation is essential. Serum or plasma urea nitroge n measurement (mass/volume)on 09-27-2021 Urea nitrogen [Mass/Vol] 15 mg/dL 7-18 [facility] Work Phone: Thin prep Papanicolaou smear with manual screeningon 09-27-2021 Thin prep Papanicolaou smear with manual screening 86 U/L 15-37 [facility] Work Phone: Thin prep Papanicolaou smear with manual screening 4 5-15 [facility] Work Phone: Absolute lymphocyte counton 06-28-2021 Lymphocytes Auto (Unsp spec) [#/Vol] 1.25 10*3/uL 0.83-4.51 [facility] Work Phone: Basophil percentageon 2021 Basophils/100 WBC (Bld) 1.3 % 0-1 [facility] Work Phone: Bilirubin [Mass/Vol] 0.50 mg/dL 0.20-1.00 [facility] Work Phone: Comment on above: For patients on eltr ombopag therapy, use of Dimension [place] TBIL is not recommended. Chloride [Moles/Vol] 108 mmol/L 98-107 [facility] Work Phone: Eosinophils/100 WBC (Bld) 5.0 % 0-5 [facility] Work Phone: Glucose [Mass/Vol] 98 mg/dL 74-106 [facility] Work Phone: Neutrophils (Bld) [#/Vol] 3.0 10*3/uL 2.0-7.7 [facility] Work Phone: Neutrophils/100 WBC (Bld) 57.5 % 47-70 [facility] Work Phone: Potassium [Moles/Vol] 4.0 mmol/L 3.5-5.1 [facility] Work Phone: [phone] Protein [Mass/Vol] 7.3 g/dL 6.4-8.2 [facility] Work Phone: Sodium [Moles/Vol] 139 mmol/L 136-145 [facility] Work Phone: WBC (Bld) [#/Vol] 5.2 10*3/uL 4.4-11.0 [facility] Work Phone: [phone] Blood erythrocytes count (nu mber/volume)on 06-28-2021 RBC (Bld) [#/Vol] 5.32 10*6/uL 4.2-5.4 [facility] Work Phone: Blood hemoglobin measurement (mass/volume)on 06-28-2021 Hemoglobin (Bld) [Mass/Vol] 16.2 g/dL 12.0-15.0 [facility] Work Phone: [phone] Blood lymphocytes/100 leukoc yteson 06-28-2021 Lymphocytes/100 WBC (Bld) 24.1 % 19-41 [facility] Work Phone: [phone] Blood monocytes/100 leukocyt eson 06-28-2021 Monocytes/100 WBC (Bld) 11.9 % 0-10 [facility] Work Phone: Blood platelet mean volumeon 06-28-2021 Platelet mean volume (Bld) [Entitic vol] 10.9 fL 6.2-12.0 [facility] Work Phone: Determination of erythrocyte mean corpuscular volume (MCV)on 06-28-2021 MCV (RBC) [Entitic vol] 89.1 fL 81-99 [facility] Work Phone: Hematocrit Auto (Bld) [Volum e fraction]on 06-28-2021 Hematocrit (Bld) [Volume fraction] 47.4 % 37-47 [facility] Work Phone: Laboratory - Chemistry and C hemistry - challengeon 06-28-2021 ALP [Catalytic activity/Vol] 133 U/L 45-117 [facility] Work Phone: ALT [Catalytic activity/Vol] 55 U/L 13-56 [facility] Work Phone: CO2 [Moles/Vol] 26.0 mmol/L 21.0-32.0 [facility] Work Phone: Free T4 [Mass/Vol] 0.78 ng/dL 0.76-1.46 [facility] Work Phone: Globulin (S) [Mass/Vol] 3.9 g/dL 2.2-4.2 [facility] Work Phone: Urea nitrogen/Creatinine [Mass ratio] 15.3 mg/mg 10-20 [facility] Work Phone: Laboratory - Hematology and Cell countson 06-28-2021 Erythrocyte distribution width (RBC) [Entitic vol] 41.0 fL 35.1-43.9 [facility] Work Phone: Erythrocyte distribution width (RBC) [Ratio] 12.5 % 11.6-14.6 [facility] Work Phone: Immature granulocytes/100 WBC (Bld) 0.200 % 0.0-0.9 [facility] Work Phone: Comment on above: IG% - Immature Granu locytes (promyelocytes, myelocytes and metamyelocytes) > 1% indicates that a LEFT SHIFT is Present. MCH (RBC) [Entitic mass] 30.5 pg 27.0-32.0 [facility] Work Phone: Nucleated RBC/100 WBC (Bld) [Ratio] 0 % 0-5 [facility] Work Phone: MCHC Auto (RBC) [Mass/Vol]on 06-28-2021 MCHC (RBC) [Mass/Vol] 34.2 g/dL 32-36 [facility] Work Phone: No Panel Informationon 06-28 Estimated GFR (MDRD) Amer 78 mL/min >60 [facility] Work Phone: Comment on above: GFR Calc Estimated GFR (MDRD) Non-Af Amer 65 mL/min >60 [facility] Work Phone: Comment on above: Non- GFR Calc Thyroid Stimulating Hormone (TSH) 3.96 uIU/mL 0.358-3.74 [facility] Work Phone: Vitamin D 25-Hydroxy 49.2 ng/mL [facility] Work Phone: Comment on above: Vitamin D 25(OH) Sta tus Range Deficiency <20 ng/mL (50nmol/L) Insufficiency 20 - 30 ng/mL (50 - 75 nmol/L) Sufficiency 30 - 100 ng/mL (75 - 250 nmol/L) Toxicity >100 ng/mL (>250 nmol/L) Platelets bldon 06-28-2021 Platelets (Bld) [#/Vol] 285 10*3/uL 150-450 [facility] Work Phone: Serum or plasma albumin negra urement (mass/volume)on 06-28-2021 Albumin [Mass/Vol] 3.4 g/dL 3.2-5.0 [facility] Work Phone: Serum or plasma albumin/glob ulin mass ratioon 06-28-2021 Albumin/Globulin [Mass ratio] 0.9 {ratio} 0.9-2.4 [facility] Work Phone: Serum or plasma calcium negra urement (mass/volume)on 06-28-2021 Calcium [Mass/Vol] 9.1 mg/dL 8.5-10.[address] [facility] Work Phone: Serum or plasma creatinine m easurement (mass/volume)on 06-28-2021 Creatinine [Mass/Vol] 0.92 mg/dL 0.55-1.02 Dee ster [facility] Work Phone: Comment on above: The validity of the calculated GFR & GFRAA in patients over 70 years has not been determined. Clinical correlation is essential. Serum or plasma urea nitroge n measurement (mass/volume)on 06-28-2021 Urea nitrogen [Mass/Vol] 14 mg/dL 7-18 [facility] Work Phone: Thin prep Papanicolaou smear with manual screeningon 06-28-2021 Thin prep Papanicolaou smear with manual screening 32 U/L 15-37 [facility] Work Phone: Thin prep Papanicolaou smear with manual screening 5 5-15 [facility] Work Phone: CNOVon 04-25-2017 CNOV Office Visit (GASTWC) RACHEL MAY ([id number]) 1950 [facility] Time Provider Pfywbjybti82/29/17 8:20 AM TY CRENSHAW (HOA) [facility] During your visit today, we recorded the [...] by Dr. Ross for upper endoscopy and tzlqwkcnsoz97/11/17. The procedure report has been reviewed and [...] other than HPI.PAST MEDICAL HISTORYDiagnosis Date- Dysphagia, unspecified(61.20)- Esophagitis, unspecified- Internal hemorrhoids without mention of complication- Osteoarthritis- PMH - PAST MEDICAL HISTORY OF DDD in cervical disc- Stricture and stenosis of esophagusPAST SURGICAL HISTORYProcedure Laterality Date- COLONOSCOP W/ OR W/O [facility] SPEC 07/31/06- COLONOSCOP W/ OR W/O [facility] SPEC 04/07/2017 repeat 10 years- CRANIOTOMY,NEUROELEC,CORTI GENARO 1993- DANDamp;C, DIAG AND/OR THERAPEUTIC 1975 Dilation ANDamp; curettage- EGD W/O [facility] SPECIMEN W/BX 02/18/11 with balloon dilation- EGD [...] patient. I have reviewed theinformation that the GOLD MINER entered for this encounter. Greater than 25 [...] anti-spasmotic.Follow up as needed.Referring Provider: RYAN ROSS [[id number]]Allergies As of Date: 04/25/2017 Noted Allergy ReactionDILANTIN (PHENYTOIN SODIUM EXTEND*06/30/2006TRIMPEX (TRIMETHOPRIM) 06/30/2006Date Reviewed: 04/25/2017Reviewed by: Ai Small GOLD MINER - Fully AssessedReason for Visit: follow up procedure colon/EGD [facility] 04-07-17 [Other]Primary Visit Diagnosis:Gastroesophageal reflux disease with [...] by TY CRENSHAW CNP on 04/25/17 Normal [facility] PROGRESSon 04-25-2017 PROGRESS HNO ID: [id number] thor: Ty (Stock Clerk) ThorpeService: (none)Author Type: Nurse PractitionerType: Progress NotesFiled: 04/25/2017 9:02 AMNote Text:Rachel May a 66 year old female who is returning for follow upregarding dysphagia. I saw the patient on 04/01/17 to discuss screeningcolonoscopy. That note has been reviewed.The patient was seen by Dr. Ross for upper endoscopy and herfmujuztp92/11/17. The procedure report has been reviewed and [...] HISTORYProcedure Laterality Date- COLONOSCOP W/ OR W/O [facility] SPEC 07/31/06- COLONOSCOP W/ OR W/O [facility] SPEC 04/07/2017 repeat 10 years- CRANIOTOMY,NEUROELEC,CORTI GENARO 1993- DANDC, DIAG AND/OR THERAPEUTIC 1974 Dilation AND curettage- EGD W/O [facility] SPECIMEN W/BX 02/18/11 with balloon dilation- EGD [...] patient. I have reviewedthe information that the GOLD MINER entered for this encounter. Greater than 25minutes total time used this visit to review old chart, review newinformation, update current history and evaluate patient. A majority ofthe time was spent in discussion and counseling to formulate the plan.Ty Crenshaw RN [facility] Normal [facility] HISTORY PHYSICALon 7 Cholesterol HNO ID: [id number] thor: Ryan Savage: GastroenterologyAuthor Type: PhysicianType: HANDPFiled: [...] 07, 2017 : 2:45 PM PAGER: Normal [facility] NURSING PROGon 04-07-2017 NURSING PROG HNO ID: [id number] thor: DAMARI Hernandez Rnervice: (none)Author Type: Registered NurseType: Nursing Progress NoteFiled: 04/07/2017 4:12 PMNote Text:Patient did not experience a fall prior to discharge.Patient did not experience a burn prior to discharge.Genesis Cardenas RN Normal [facility] NURSING PROG HNO ID: [id number] Author: Genesis Cardenas RN Service: (none) Author Type: Registered Nurse Type: Nursing Progress Note Filed: 04/07/2017 3:39 PM Note Text: Patient sitting up in bed tolerating juice without problems. Genesis Cardenas RN [facility] NURSING PROG HNO ID: [id number] thor: Ana Cristina Hernandez Rn: (none)Author Type: Registered NurseType: Nursing Progress NoteFiled: 04/07/2017 3:30 PMNote Text:Patient arrived to PACU, on left side, abdomen soft. Patient restingcomfortably.Genesis Cardenas RN [facility] NURSING PROG HNO ID: [id number] thor: Ana Cristina Dow Rn: NursingAuthor Type: Registered NurseType: Nursing Progress NoteFiled: 04/07/2017 3:19 PMNote Text:Preoperative order for IV Antibiotic Prophylaxis is N/A.Patient did not experience a fall within the Intraoperative proceduralarea.Patient did not experience a burn within the Intraoperative proceduralarea.Maria Victoria Harmon RN [facility] NURSING PROG HNO ID: [id number] thor: Ana Cristina Hernandez Rn: (none)Author Type: [...] bedside and allquestions were answered.Eliecer Hernandez RN [facility] PT EDon 04-07-2017 PT ED HNO ID: [id number] thor: Ana Cristina Hernandez Rn: (none)Author Type: [...] Genesis Cardenas RN In Department: AMBULATORYSURGERY Normal [facility] SURGICAL PATHOLOGYon 017 SURGICAL PATHOLOGY [facility]: [id number] Physician: RYAN ROSS MD FI NAL DIAGNOSIS1. [...] submitted in one cassette.Gross examination performed at [facility], [address] [place] [id number] 04/08/2017 2:09:30 AMPatient ID #: [id number] of Report: 04/11/2017Date of Procedure: 04/07/2017Date of Receipt: 04/07/2017Submitted by: RYAN ROSS MDLocation: [id number] interpretation performed at [facility], [facility] [address]. Normal [facility] HOSPon 04-02-2017 HOSP Patient:Leonela May ra KMRN: Height:5' 1(1.549 m)Weight:144 lb 12.8 oz (65.681 kg)Outpatient Medications as of 04/07/17:isbugyvz-ruu-zgvd droit-vit D3 750 mg-125 mg -600 mg [...] days for the following basenames: K,HCTProgress Notes ([facility]):Ai Small LPN 04/02/2017 8:04 AM [...] By: Ai Small LPNIn department: Gastroenterology Normal [facility] CNOVon 04-01-2017 CNOV Office Visit (GAST) RACHEL MAY ([id number]) 1950 FDate Time Provider Jjumnuohum95/5/17 4:00 PM TY CRENSHAW (HOA) [facility] During your visit today, we recorded the [...] There has not been melena. 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 SPEC 07/31/06- CRANIOTOMY,NEUROELEC,CORTI GENARO 1993- DANDamp;C, DIAG AND/OR THERAPEUTIC 1975 Dilation ANDamp; curettage- EGD W/O [facility] SPECIMEN W/BX 02/18/11 with balloon dilation- LAMINECTOMY,ANDgt;2 [...] patient. I have read theinformation that the GOLD MINER documented in this encounter. This visit was at least30 minutes in length with a majority of the time spent in review of the pastrecords with the patient, discussion and counseling.Ty Crenshaw RN CNPessie Crenshaw RN RADIO/TV TECHNICIAN 04/01/2017 4:48 PM SignedPlease follow the [...] screening for malignant neoplasm of colon [Z12.11]Order(s):EGD [[id number]] Order #: [id number] FUTURE COLONOSCOPY SCRN NOT HIGH RISK [[id number]] Order #: [id number] FUTURE peg 3350-electrolytes (COLYTE) 240-22.72-6.72 -5.84 gram [...] by TY CRENSHAW CNP on 04/01/17 Normal [facility] HISTORY PHYSICALon HISTORY PHYSICAL HNO ID: [id number] thor: Ty (Stock Clerk) ThorpeService: (none)Author Type: Nurse PractitionerType: HANDPFiled: 04/01/2017 [...] bleeding. There has not beenmelena. 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 SPEC 07/31/06- CRANIOTOMY,NEUROELEC,CORTI GENARO 1993- DANDC, DIAG AND/OR THERAPEUTIC 1974 Dilation AND curettage- EGD W/O [facility] SPECIMEN W/BX 02/18/11 with balloon dilation- LAMINECTOMY,>2 [...] patient. I have read theinformation that the GOLD MINER documented in this encounter. This visit was atleast 30 minutes in length with a majority of the time spent in review ofthe past records with the patient, discussion and counseling.Ty Crenshaw RN RADIO/TV TECHNICIAN Normal [facility] Vital Signs Date Time Vital Sign Value Performing Clinician Hector hernandez 04-03-2023 10:30-0500 Body height 157.[address] Tyron Knight Work Phone: [facility] 04-03-2023 10:30-0500 Body weight 70.[address] Tyron Knight Work Phone: [facility] 02-21-2023 08:54-0400 Body mass index (BMI) [Ratio] 28.3 kg/m2 Dr. Tyron Knight Work Phone: [facility] 02-21-2023 08:54-0400 Body weight 70.[address] Tyron Knight Work Phone: [facility] 02-21-2023 08:54-0400 Diastolic blood pressure 85 mm[Hg] Dr. Tyron Knight Work Phone: [facility] 02-21-2023 08:54-0400 Heart rate 68 /min Dr. Tyron Knight Work Phone: [facility] 02-21-2023 08:54-0400 SaO2% (BldA) [Mass fraction] 96 % Dr. Tyron Knight Work Phone: [facility] 02-21-2023 08:54-0400 Systolic blood pressure 148 mm[Hg] Dr. Tyron Knight Work Phone: [facility] 11-21-2022 12:53-0400 Body height 157.[address] Tyron Knight Work Phone: [facility] 11-21-2022 12:53-0400 Body mass index (BMI) [Ratio] 27.4 kg/m2 Dr. Tyron Knight Work Phone: [facility] 11-21-2022 12:53-0400 Body weight 68.[address] Tyron Knight Work Phone: [facility] 10-18-2022 09:34-0400 Body height 152.[address] Tyron Knight Work Phone: [facility] 10-18-2022 09:34-0400 Body mass index (BMI) [Ratio] 29.7 kg/m2 Dr. Tyron Knight Work Phone: [facility] 10-18-2022 09:34-0400 Body weight 68.[address] Tyron Knight Work Phone: [facility] 05-17-2022 09:32-0500 Body height 154.[address] Tyron Knight Work Phone: [facility] 05-17-2022 09:32-0500 Body mass index (BMI) [Ratio] 29 kg/m2 Dr. Tyron Knight Work Phone: [facility] 05-17-2022 09:32-0500 Body weight 69.[address] Tyron Knight Work Phone: [facility] 05-17-2022 09:32-0500 Diastolic blood pressure 78 mm[Hg] Dr. Tyron Knight Work Phone: [facility] 05-17-2022 09:32-0500 Heart rate 57 /min Dr. Tyron Knight Work Phone: [facility] 05-17-2022 09:32-0500 SaO2% (BldA) [Mass fraction] 94 % Dr. Tyron Knight Work Phone: [facility] 05-17-2022 09:32-0500 Systolic blood pressure 120 mm[Hg] Dr. Tyron Knight Work Phone: [facility] 05-02-2022 09:22-0500 Body temperature 98 [degF] Dr. Tyron Knight Work Phone: [facility] 05-02-2022 09:22-0500 Diastolic blood pressure 76 mm[Hg] Dr. Tyron Knight Work Phone: [facility] 05-02-2022 09:22-0500 Heart rate 76 /min Dr. Tyron Knight Work Phone: [facility] 05-02-2022 09:22-0500 Respiratory rate 16 /min Dr. Tyron Knight Work Phone: [facility] 05-02-2022 09:22-0500 SaO2% (BldA) [Mass fraction] 98 % Dr. Tyron Knight Work Phone: [facility] 05-02-2022 09:22-0500 Systolic blood pressure 119 mm[Hg] Dr. Tyron Knight Work Phone: [facility] 05-02-2022 07:55-0500 Body mass index (BMI) [Ratio] 29.1 kg/m2 Dr. Tyron Knight Work Phone: [facility] 05-02-2022 07:55-0500 Body weight 69.[address] Tyron Knight Work Phone: [facility] Encounters Encounter Date Encounter Type Care Provider Facility Start: 11-23-2024 ambulatory Tyron Knight Facilit y:[facility] Start: 11-08-2024 End: 11-08-[address] Tyron Knight MD Work Phone: -Ultrasound [facility] Start: 11-08-2024 End: 11-08-[address] Usman Mares MD -Ultrasound [facility] Work Phone: Start: 11-08-2024 End: 11-08-2024 ambulatory Usman Mares Facility:[facility] Start: 11-01-2024 End: 11-01-[address] Tyron Knight MD Work Phone: -Laboratory Start: 11-01-2024 End: 11-01-[address] Usman Mares MD -Laboratory Work Phone: Start: 11-01-2024 End: 11-01-2024 ambulatory Usman Mares Facility:[facility] Start: 06-07-2024 End: 06-08-2024 ambulatory Tyron Knight Facility:[facility] Start: 06-03-2024 End: 06-03-2024 ambulatory Tyron Knight Facility:[facility] Start: 01-09-2024 End: 01-09-2024 ambulatory Tyron Knight Facility:[facility] Start: 12-30-2023 End: 12-30-2023 ambulatory Tyron Knight Facility:[facility] Start: 12-12-2023 End: 12-12-2023 ambulatory Tyron Knight Facility:[facility] Start: 12-12-2023 End: 12-12-2023 ambulatory Usman Mares Facility:[facility] Start: 11-28-2023 End: 11-28-2023 ambulatory Tyron Knight Facility:[facility] Start: 05-01-2023 End: 05-01-[address] Tyron Knight Work Phone: [facility] Work Phone: Start: 05-01-2023 End: 05-01-[address] Tyrno Knight Work Phone: [facility] Start: 04-03-2023 End: 04-27-[address] Tyron Knight Work Phone: [facility] Work Phone: Start: 04-03-2023 End: 04-27-[address] Tyron Knight Work Phone: [facility] Work Phone: Start: 02-21-2023 End: 02-21-[address] Tyron Knight Work Phone: [facility] Work Phone: Start: 12-02-2022 End: 12-02-[address] Tyron Knight Work Phone: [facility] Work Phone: Start: 12-02-2022 End: 12-02-[address] Tyron Knight Work Phone: [facility]-Ul[facility]ound, [facility] Work Phone: Start: 11-26-2022 End: 11-26-[address] Tyron Knight Work Phone: [facility] Work Phone: Start: 11-26-2022 End: 11-26-[address] Tyron Knight Work Phone: [facility] Work Phone: Start: 11-21-2022 Non-patient / Non-visit Dr. Tyron Knight Work Phone: [facility] Work Phone: Start: 11-21-2022 End: 11-21-[address] Tyron Knight Work Phone: [facility] Work Phone: Start: 11-21-2022 End: 11-21-[address] Tyron Knight Work Phone: [facility] Work Phone: Start: 11-12-2022 End: 11-12-[address] Tyron Knight Work Phone: [facility]-Ultrasound, [facility] Work Phone: Start: 11-07-2022 End: 11-07-[address] Tyron Knight Work Phone: [facility] Work Phone: Start: 11-07-2022 End: 11-07-[address] Tyron Knight Work Phone: [facility] Start: 10-18-2022 End: 10-18-[address] Tyron Knight Work Phone: [facility] Work Phone: Start: 05-17-2022 End: 05-17-[address] Tyron Knight Work Phone: [facility] Start: 05-10-2022 End: 05-10-[address] Tyron Knight Work Phone: [facility] Work Phone: Start: 05-10-2022 End: 05-10-[address] Tyron Knight Work Phone: [facility] Start: 05-02-2022 Non-patient / Non-visit Dr. Tyron Knight Work Phone: [facility] Start: 05-02-2022 End: 05-02-2022 Admission to same day surgery center [facility] Start: 03-06-2022 End: 03-06-[address] Tyron Knight Work Phone: [facility] Start: 01-29-2022 End: 01-29-[address] Tyron Knight Work Phone: [facility] Start: 12-26-2021 End: 12-26-[address] Tyron Knight Work Phone: [facility] Work Phone: Start: 12-26-2021 End: 12-26-[address] Tyron Knight Work Phone: [facility], [facility] Start: 12-19-2021 End: 12-19-[address] Tyron Knight Work Phone: [facility] Work Phone: Start: 12-19-2021 End: 12-19-[address] Tyron Knight Work Phone: [facility]Labor[facility] Start: 12-19-2021 End: 12-19-[address] Tyron Knight Work Phone: [facility] Start: 10-19-2021 End: 10-19-2021 Patient encounter procedure [facility] Start: 09-27-2021 End: 09-27-2021 Patient encounter procedure [facility] Start: 06-28-2021 End: 06-28-2021 Patient encounter procedure [facility] Start: 04-25-2017 End: 04-25-2017 Ambulatory TY (DIRECTOR OPERATIONS) [facility] Start: 04-07-2017 End: 04-07-2017 Ambulatory RYAN ROSS [facility] Start: 04-01-2017 End: 04-03-2017 Ambulatory TY (DIRECTOR OPERATIONS) [facility] Procedures Date Procedure Procedure Detail Performing [...] elastography of liver ABD Limited w/ Elastography [facility] Start: 05-02-2022 Egd insert guide wire dilator passage esophagus EGD GUIDE WIRE INSERTION [facility] Start: 05-02-2022 Egd transoral biopsy single/multiple EGD BIOPSY SINGLE/MULTIPLE [facility] Start: 05-02-2022 Patient discharge [facility] Start: 12-19-2021 Aldolase [Enzymatic activity/volume] in Serum or Plasma [facility] Work Phone: Start: 12-19-2021 Angiotensin converting enzyme [Enzymatic activity/volume] in Serum or Plasma [facility] Work Phone: Start: 12-19-2021 Ceruloplasmin [Mass/volume] in Serum or Plasma [facility] Work Phone: Start: 12-19-2021 Copper [Moles/volume] in Serum or Plasma [facility] Work Phone: Start: 12-19-2021 Haptoglobin [Mass/volume] in Serum or Plasma [facility] Work Phone: Start: 12-19-2021 Mitochondria Ab [Presence] in Serum [facility] Work Phone: Start: 12-19-2021 Smooth muscle Ab [Presence] in Serum [facility] Work Phone: Start: 12-19-2021 Vitamin D, 1,25-dihydroxy measurement [facility] Work Phone: Start: 12-19-2021 [facility] Work Phone: Aldolase [Enzymatic activity/volume] in Serum or Plasma [facility] Work Phone: Alkaline phosphatase - bone isoenzyme measurement [facility] Work Phone: Alkaline phosphatase [Enzymatic activity/volume] in Serum or Plasma [facility] Work Phone: Alkaline phosphatase liver isoenzyme measurement [facility] Work Phone: Alpha 1 antitrypsin [Mass/volume] in Serum or Plasma [facility] Work Phone: Angiotensin converti ng enzyme [Enzymatic activity/volume] in Serum or Plasma [facility] Work Phone: Antibody to lupus La protein measurement [facility] Work Phone: Antibody to SS-A measurement [facility] Work Phone: CBC W Auto Different ial panel - Blood [facility] Centromere protein B Ab [Units/volume] in Serum [facility] Work Phone: Ceruloplasmin [Mass/volume] in Serum or Plasma [facility] Work Phone: Chromatin Ab [Units/volume] in Serum or Plasma [facility] Work Phone: Colonoscopy [facility] Copper [Moles/volume ] in Serum or Plasma [facility] Work Phone: DNA double strand Ab [Units/volume] in Serum [facility] Work Phone: Haptoglobin [Mass/vo lume] in Serum or Plasma [facility] Work Phone: Intestinal alkaline phosphatase measurement [facility] Work Phone: Anaid-1 extractable nuc lear Ab [Units/volume] in Serum [facility] Work Phone: Mitochondria Ab [Presence] in Serum [facility] Work Phone: Neutrophil cytoplasm ic Ab.classic [Units/volume] in Serum [facility] Work Phone: P-ANCA measurement [facility] Work Phone: Patient referral [facility] Work Phone: Prothrombin time [facility] SCL-70 extractable nuclear Ab [Units/volume] in Serum by Immunoassay [facility] Work Phone: Santacruz extractable nu clear Ab [Presence] in Serum [facility] Work Phone: Smooth muscle Ab [Presence] in Serum [facility] Work Phone: T4 free measurement [facility] Thyroid stimulating hormone measurement [facility] Ultrasound elastography [facility] Work Phone: US Abdomen limited [facility] Work Phone: Vitamin D, 1,25-dihy droxy measurement [facility] Work Phone: [facility] Payers Date Payer Category Payer Self-pay [id number] 2021 Medicare [id number] 2021 Unknown [id number] Self-pay SELF PAY BY PATIENT REQUEST [id number] Unknown [id number] Unknown [id number] Unknown [id number] Unknown [id number] Unknown [id number] Unknown [id number] Unknown [id number] Unknown [id number] Unknown [id number] Unknown [id number] Unknown [id number] Unknown [id number] Social History Date Type Detail [facility] Work Phone: Start: 1950 Sex Assigned At Female [facility] Start: 10-16-2021 End: 05-05-2023 Tobacco smoking status [facility] Unknown if ever smoked [facility] Start: 04-29-[address] [facility] (finding[facility] Goals Date Patient Goal Desired Activity /State Mental Status Date Assessment Result Facility 05-02-2022 Cognitive function Voice/Name [facility] Work Phone: Radiology Diagnostic study note 11-08-2024 Note Date & Type Note Facility 11-08-2024 Radiology Diagnostic study note [facility] Imaging Services [address] [place] [address] ABD Limited w/ Elastography MR#: [id number] Acct: [id number] Name: RACHEL MAY Rep #: [id number] : 1950 F 74 From: Micheal Ponce MD PCP: Dr. Tyron Knight MD Status: RE G CLI Study:ABD Limited w/ Elastography Date of Exa m: 11/08/24 Exam# [id number] Ordering Dr: Torrey Mares MD PROCEDURE: ABD [...] quadrant ascites. US/ABD Limited w/ Elastography IMPRESSION: [id number] degree of hepatic fibrosis. Reference Values: SRU [...] measurement may be in question. Reading Location: [place] [address] CC: Dr. Tyron Knight MD; Dr. Usman Mares MD ~ Director Sales Training: Signed [facility] Evaluation note Note Date & Type Note Facility Evaluation note No assessment information availa ble [facility] Work Phone: Evaluation note Note Date & Type Note Facility Evaluation note Diagnosis Onset Date Elevated LFTs acute [facility] Work Phone: Evaluation note Note Date & Type Note Facility Evaluation note Diagnosis Onset Date Obesity acute Screening for colon cancer a cute Dysphagia chronic STRATTON (nonalcoholic steatohepatitis) chronic Elevated LFTs chronic GERD (gastroesophageal reflux disease) chronic STRATTON (nonalcoholic steatohepatitis) chronic [facility] Work Phone: Evaluation note Note Date & Type Note Facility Evaluation note Diagnosis Onset Date GERD (gastroesophageal reflux disease) chronic STRATTON (nonalcoholic steatohepatitis) chronic [facility] Work Phone: Reason for referral (narrative) Note Date & Type Note Facility Reason for referral (narrative) No reason for referral information available [facility] Work Phone: Summary Purpose Family History No Family History Records Found Relationship Condition Age at Onset Recorded Date/T nivia aunt Malignant neoplasm of breast Unknown Advance Directives No Advanced Directives Records Found Advance Directive Response Recorded Date/ Time Name of Medical Power of Factory Engineer NIC MAY April 30, 2022 2:47pm Living Will Yes April 30 3 2:47pm Power of Factory Engineer Yes April 30, 2 023 2:47pm Advance Directive Response Recorded Date/ Time Living Will Yes April 30 3 3:47pm Power of Factory Engineer Yes April 30, 2 023 3:47pm Advance Directive Response Recorded Date/ Time Living Will Yes April 30 3 2:47pm Power of Factory Engineer Yes April 30, 2 023 2:47pm Advance Directive Response Recorded Date/ Time Living Will Yes May 05 4 3:10pm Power of Factory Engineer Yes May 05, 2 024 3:10pm [...] section and content) DATE CREATED AUTHOR 10/21/2017 [facility] DATE CREATED AUTHOR AUTHOR'S ORGANIZ ATION 11/20/2024 [facility] Goals (unrecognized section and content) Goals may [...] Provider, Referr ing Provider Active Emilie Robertson DIRECTOR OPERATIONS, DIRECTOR OPERATIONS-C Attending Provider Active Team Status: Active Member [...] 01, 2024 End: November 01, 2024 Dr. sUman Mares MD Attending Provider Active Start: November [...] BE BASED ON THE PRIMARY CLINICAL RECORDS. [facility]. provides no warranty or guarantee of the accuracy or completeness of information in this document.
== END | disposition home or self-care (01) ==
LOC: OPBD 08:49
PROVIDERS: PCP Family Medicine; Referring Provider Family Medicine; Visit Provider Family Medicine
DX: M85.80 Other specified disorders of bone density and structure, unspecified site (principal); Z78.0 Asymptomatic menopausal state
CPT/HCPCS: 77080

== ENCOUNTER → 2024-12-01 | Outpatient (CLI) | payer MEDICARE, OTHER, SELFPAY ==
--- NOTE | 2024-12-01 08:19 | BI_ITS ---
EXAM: SCRN MAMM (CAD)W/CARMINA BILAT DATE: 12/01/2024 CLINICAL HISTORY: F, Age 74 y/o , ANNUAL TECHNIQUE: SCRN MAMM (CAD)W/ACRMINA BILAT COMPARISON: Prior exam(s) dated 11/28/2023, 11/21/2022. FINDINGS: TISSUE DENSITY: The breasts are heterogeneously dense, which may obscure small masses. The mammogram demonstrates that the patient has dense breasts. Supplemental screening with whole breast ultrasound or MRI may be considered for further evaluation. Bilateral Breast Mammographic Findings: No significant masses, calcifications or other abnormalities are identified. BI/SCRN MAMM (CAD)W/CARMINA BILAT IMPRESSION: There is no mammographic evidence of malignancy. OVERALL FINAL ASSESSMENT BI-RADS 1: NEGATIVE. RECOMMENDATION: Routine annual follow-up in 1 Year A letter with findings and recommendations will be mailed to the patient. Reading Location: [id number]
== END | disposition home or self-care (01) ==
LOC: OPBI 08:18
PROVIDERS: PCP Family Medicine; Referring Provider Family Medicine; Visit Provider Family Medicine
DX: Z12.31 Encounter for screening mammogram for malignant neoplasm of breast (principal)
CPT/HCPCS: 77063; 77067

== ENCOUNTER → 2025-02-03 | Outpatient (CLI) | payer MEDICARE, OTHER, SELFPAY ==
[2025-02-03 08:22] LABS: Prothrombin Time (Protime)PT. 14.0 SECONDS (11.7-14.9)
[2025-02-03 08:29] LABS: AST(SGOT) 41 U/L (<=31); Alanine Aminotransfer ALT/SGPT 50 U/L (<=34); Albumin, Serum 4.1 g/dL (3.4-4.8); Alkaline Phosphatase 170 U/L (35-104); Bilirubin, Direct 0.28 mg/dL (0.00-0.30); Globulin 2.9 g/dL (2.2-4.2)
[2025-02-04 15:09] LABS: Alkaline Phosphatase, Serum 175 IU/L (49-135); GGTP 126 IU/L (0-60)
== END | disposition home or self-care (01) ==
LOC: LAB 07:15
PROVIDERS: PCP Family Medicine; Referring Provider Internal Medicine; Visit Provider Internal Medicine
DX: K76.0 Fatty (change of) liver, not elsewhere classified (principal); R79.89 Other specified abnormal findings of blood chemistry; E66.9 Obesity, unspecified
CPT/HCPCS: 36415; 80076; 82977; 84075; 84080; 85610

== ENCOUNTER → 2025-02-09 | Outpatient (CLI) | payer MEDICARE, OTHER, SELFPAY | END | disposition home or self-care (01) | PROVIDERS: PCP Family Medicine; Referring Provider Internal Medicine; Visit Provider Internal Medicine | DX: K76.0 Fatty (change of) liver, not elsewhere classified (principal) | CPT/HCPCS: 36415 ==

== ENCOUNTER → 2025-03-28 | Outpatient (CLI) | payer MEDICARE, OTHER, SELFPAY ==
--- OUTSIDE RECORDS SUMMARY | 2025-03-28 07:37 | XMS RPT_ITS | CCD ---
Author Organization [facility] CliniSynd Care Team Providers Care Oracle Bpm Consultant Name Role Phone THORPE, TY (DRILL PUNCH OPERATOR) Unavailable Unavailable ROSS, RYAN Unavailable Unavailable ROSS, RYAN Unavailable Unavailable THORPE, TY (DRILL PUNCH OPERATOR) Unavailable Unavailable THORPE, TY (DRILL PUNCH OPERATOR) Unavailable Unavailable ROSS, RYAN Unavailable Unavailable Dr. Tyron Knight Primary Care Provider Dr. Tyron Knight Referring Provider FriendDr. Marte Attending Provider Dr. Tyron Knight Primary Care Provider Dr. Tyron Knight Referring Provider 1([facility])[phone] Dr. Estuardo Anand Attending Provider 1([facility])[phone] Dr. Estuardo Anand Other Provider 1([facility])[phone] MD Tyron Knight Referring Provider Unavailable Marcelo DRILL PUNCH OPERATOR, DRILL PUNCH OPERATOR-C Emilie Gale Attending Provider [phone] Dr. Tyron Knight Primary Care Provider Dr. Tyron Knight Referring Provider Dr. Estuardo Anand Attending Provider Phoebe Boyd Attending Provider Dr. Tyron Jerome Primary Care Provider [phone] Dr. Tyron Knight Referring Provider Dr. Usman Mares Attending Provider 1([facility])[phone] Dr. Tyron Knight MD Primary Care Provider [phone] Dr. Usman Mares MD Attending Provider Dr. Usman Mares MD Referring Provider Antonia ROLDAN, Dr. Tyron Luna Attending Provider Antonia ROLDAN, Dr. Tyron Luna Referring Provider [place] DRILL PUNCH OPERATOR-CDoris Attending Provider [place] NP Attending Unavailable Schinner, Tyron E Referring Unavailable Schinner, Tyron E Primary Care Unavailable Usman Mares Attending Unavailable Vishnu, Usman Referring Unavailable Schinner, Tyron E Primary Care Unavailable Usman Mares Consulting Unavailable Schinner, Tyron E Primary Care Unavailable SchinnerTyron E Attending Unavailable Schinner, Tyron E Referring Unavailable Usman Mares Referring Unavailable Schinner, Tyron E Primary Care Unavailable Usman Mares Attending Unavailable Schinumm, Tyron E Primary Care Unavailable Usman Mares Attending Unavailable Usman Mares Referring Unavailable Schinner, Tyron E Primary Care Unavailable SchinTyron salomon E Attending Unavailable Schinner, Tyron E Referring Unavailable Schinner, Tyron E Attending Unavailable Schinner, Tyron E Referring Unavailable Schinner, Tyron E Primary Care Unavailable Usman Mares Attending Unavailable Usman Mares Referring Unavailable Schinner, Tyron E Primary Care Unavailable Schinner, Tyron E Primary Care Unavailable Siva Louise Attending Unavailable Schinner, Tyron E Referring Unavailable Schinner, Tyron E Primary Care Unavailable Usman Mares Attending Unavailable Schinner, Tyron E Referring Unavailable Schinner, Tyron E Primary Care Unavailable Usman Mares Attending Unavailable RebeccainTyron salomon E Referring Unavailable Allergies Allergy Classification Reported Allergen(s) Allergy Type Date of Onset Reaction(s) Facility (1 source) phenytoin; Translations: [PHENYTOIN SODIUM EXTENDED] Drug Allergy 06-30-2006 [facility] Repository (18 sources) trimethoprim; Translations: [TRIMETHOPRIM] Drug Allergy 06-30-2006 [facility] Repository (16 sources) Phenytoin Drug Allergy 10-16-2021 [facility] (1 source) Phenytoin Drug Allergy 12-20-[address] [facility] Repository Medications Current Medications Medication Drug Class(es) Dates Sig (Normalized) Sig (Original) calcium carbonate 1500 mg oral tablet (16 sources) Start: 10-16-2021 take 1 tablet by mouth once daily Calcium Carbonate (Calcium 600) 600 mg calcium (1,500 mg) tablet Active 600 mg PO DAILY October 16, 2021 12:00am cholecalciferol 0.05 mg oral capsule (16 sources) Vitamin D Start: 10-16-2021 take 1 capsule by mouth once daily Cholecalciferol (Vitamin D3) 50 mcg (2,000 unit) capsule Active 50 ug PO DAILY October 16, 2021 12:00am levothyroxine sodium 0.05 mg oral capsule (16 sources) l-Thyroxine Start: 10-16-2021 Levothyroxine 50 mcg capsule Active 75 ug PO DAILY October 16, 2021 12:00am Start: 10-16-2021 take 75 ug by mouth once daily Levothyroxine Active 75 MCG PO DAILY October 15, 2021 11:00pm Start: 10-16-2021 take 50 ug by mouth once daily Levothyroxine Active 50 MCG PO DAILY October 16, 2021 12:00am Resmetirom (Rezdiffra) 80 mg tablet (12 sources) Start: 12-08-2024 take 1 tablet by mouth once daily Resmetirom (Rezdiffra) 80 mg tablet Active 80 mg PO DAILY 90 December 08, 2024 8:20am Start: 12-02-2024 End: 12-08-2024 take 1 tablet by mouth once daily Resmetirom (Rezdiffra) 80 mg tablet Discontinued 80 mg PO DAILY 30 December 02, 2024 9:53am December 08, 2024 8:20am Start: 12-02-2024 take 1 tablet by almita th once daily Resmetirom (Rezdiffra) 80 mg tablet Active 80 mg PO DAILY 30 December 02, 2024 9:53am Start: 12-15-2023 End: 12-02-2024 take 1 tablet by mouth once daily Resmetirom (Rezdiffra) 80 mg tablet Discontinued 80 mg PO DAILY 30 December 15, 2023 12:00am December 02, 2024 9:53am Start: 12-15-2023 take 1 tablet by almita th once daily Resmetirom (Rezdiffra) 80 mg tablet Active 80 mg PO DAILY 30 December 15, 2023 12:00am vitamin e 400 unt/ml oral solution (7 sources) Start: 04-30-2022 take 400 [IU] by mouth twice daily Vitamin E Active 400 UNIT PO TWICE A DAY April 30, 2022 12:00am Completed/Discontinued Medications Medication Drug Class(es) Dates Sig (Normalized) Sig (Original) Carboxymethylcellu lose-Citric (Plenity (Welcome Kit)) 0.75 gram capsule (20 sources) Start: 11-21-2022 End: 10-27-2023 take 1 [...] meal/dinner metFORMIN hydrochloride 500 mg oral tablet (12 sources) Biguanide Start: 06-27-2023 End: 06-07-2024 take 1 tablet by mouth twice daily Metformin 500 mg tablet Discontinued 500 mg PO TWICE A DAY 180 90 December 22, 2023 3:37pm June 07, 2024 10:34am pantoprazole 40 mg delayed release oral tablet (20 sources) Proton Pump Inhibitor Start: 09-30-2022 End: 06-27-2023 take 1 tablet by mouth once daily in the morning Pantoprazole 40 mg tablet,delayed release (DR/EC) Discontinued 40 mg PO EVERY MORNING 90 3 September 30, 2022 10:07am June 27, 2023 10:17am Start: 05-02-2022 End: 09-30-2022 take 1 tablet by mouth twice daily Pantoprazole 40 mg tablet,delayed release (DR/EC) Discontinued 40 mg PO TWICE A DAY 60 2 May 02, 2022 1:00am September 30, 2022 10:07am ursodiol 250 mg oral tablet (20 sources) Bile Acid Start: 03-06-2022 End: 06-27-2023 take 1 tablet by mouth twice daily Ursodiol 250 mg tablet Discontinued 250 mg PO TWICE A DAY 60 30 6 March 10, 2023 1:00am June 27, 2023 10:08am Vitamin E 400 unit Tablet (6 sources) Start: 04-30-2022 End: 06-07-2024 take 1 tablet by mouth twice daily Vitamin E 400 unit Tablet Discontinued 400 U PO TWICE A DAY April 30, 2022 1:00am June 07, 2024 10:34am Problems Active Problems Problem Classification Problem Date Documented Da te Episodic/Chronic Diabetes mellitus without complication (6 sources) Prediabetes; Translations: [Prediabetes] 06-07-2024 Episodic Esophageal disorders (20 sources) Gastroesophageal reflux disease; Translations: [Gastro-esophageal reflux disease without esophagitis] 05-17-2022 Chronic Hepatitis (11 sources) Nonalcoholic steatohepatitis; Translations: [Nonalcoholic steatohepatitis (STRATTON)] 05-19-2022 Chronic Osteoporosis (1 source) Age-related osteoporosis without current pathological fracture; Translations: [Age-related osteoporosis without current pathological fracture] Onset: Chronic Other acquired deformities (6 sources) Lumbar spondylolisthesis; Translations: [Spondylolisthesis, lumbar region] 06-04-2024 Episodic Other gastrointestinal disorders (13 sources) Dysphagia; Translations: [Dysphagia, unspecified] 03-06-2022 Episodic Other gastrointestinal disorders (1 source) Dysphagia, unspecified; Translations: [Dysphagia, unspecified] 03-06-2022 Episodic Other liver diseases (11 sources) Fatty (change of) liver, not elsewhere classified; Translations: [Metabolic dysfunction-associated steatotic liver disease (MASLD)] Onset: 5 12-12-2023 Chronic Other nutritional; endocrine; and metabolic disorders (17 sources) Obesity; Translations: [Obesity, unspecified] 03-06-2022 Chronic Other nutritional; endocrine; and metabolic disorders (1 source) Obesity, unspecified; Translations: [Obesity, unspecified] 03-06-2022 Chronic Spondylosis; intervertebral disc disorders; other back problems (6 sources) Degeneration of lumbar intervertebral disc; Translations: [Other intervertebral disc degeneration of lumbar region with discogenic back pain and] 06-04-2024 Chronic Unclassified (20 sources) Encounter for screening for malignant neoplasm of colon; Translations: [Other specified abnormal findings of blood chemistry] Onset: 7 Episodic Unclassified (1 source) Unknown / UNK(Unknown) Onset: 7 Past or Other Problems Problem Classification Problem Date Documented Da te Episodic/Chronic Other hematologic conditions (1 source) Secondary polycythemia; Translations: [Secondary polycythemia] Onset: 06-22-2024 Episodic Results Test Name Value Interpretation Reference Range Facility [id number] 02-19-2025 [facility] Misc. COMMENT Normal . [facility] Comment on above: Order Comment: [id number] 2 PBC profile SERUM POUR OFF RF Result Comment: Test Ordered: [id number] Primary Biliary Cholangitis Pr Anti-Nuclear Ab by IFA (RDL) Positive [A ] ESECF Reference Range: Negative Homogeneous Pattern 1:320 [H ] ESECF Reference Range: <1:40 Nucleolar Pattern DRILL PUNCH OPERATOR NOLAB Reference Range: . Speckled Pattern 1:320 [H ] ESECF Reference Range: <1:40 Centromere Pattern DRILL PUNCH OPERATOR NOLAB Reference Range: . Spindle Apparatus Pattern DRILL PUNCH OPERATOR NOLAB Reference Range: . Nuclear Membrane Pattern DRILL PUNCH OPERATOR NOLAB Reference Range: . Midbody Pattern DRILL PUNCH OPERATOR NOLAB Reference Range: . Nuclear Dot Pattern DRILL PUNCH OPERATOR NOLAB Reference Range: . PCNA Pattern DRILL PUNCH OPERATOR NOLAB Reference Range: . Centriole Pattern DRILL PUNCH OPERATOR NOLAB Reference Range: . Note: Comment ESECF Reference Range: . CARLTON performed by Indirect Fluorescent Antibody (IFA) Anti-Mitochondrial Ab by IFA <1:20 ESECF Reference Range: <1:20 Anti-Mitochondrial M2 Ab (RDL) <20 Units ESECF Reference Range: <20 Negative: <20 Equivocal: 20 - 25 Positive: >25 Anti-GP-210 Ab (RDL) <20 Units ESECF Reference Range: <20 Anti-SP-100 Ab (RDL) <20 Units ESECF Reference Range: <20 Anti-Smooth Muscle Ab by IFA 1:20 [H ] ESECF Reference Range: <1:20 Performed at: [facility] [employer] [address] [place] [id number] Mgmt Specialist: Edgar Black MD, Phone: [phone] Performed at: [facility] [address] [id number] Mgmt Specialist: Varun Jo PhD, Phone: [phone] Performed By: #### L 3870.9992 #### [facility] [address] [place], [place], [id number] ALK Phos Isoenzymeon 10-10-2 025 ALK PHOS, S 175 IU/L High 49-[address] [facility] Comment on above: Performed By: #### L 911.9383, L503.2371, L501.3385, L503.6050 #### [facility] [address] [place], [place], [id number] BONE FRACTION 34 Normal 14-[address] [facility] Comment on above: Performed By: #### L 503.6075, L503.6550, L501.9985, L503.6150 #### [facility] [address] [place], [address] INTESTINAL FRAC 0 Normal 0-[address] [facility] Comment on above: Performed By: #### L 503.6075, L503.6550, L501.9985, L503.6150 #### [facility] [address] [place], [address] LIVER FRACTION 66 Normal 18-[address] [facility] Comment on above: Performed By: #### L 503.6075, L503.6550, L501.9985, L503.6150 #### [facility] [address] [place], [address] L501.5101on 02-04-2025 GGTP 126 IU/L Abnormal 0-[address] [facility] Comment on above: Result Comment: Perf ormed at: - [facility] [address] [id number] Mgmt Specialist: Varun Jo PhD, Phone: [phone] Performed By: #### L 503.6075, L503.6550, L501.9985, L503.6150 #### [facility] [address] [place], [address] Liver Profileon 02-03-2025 Albumin [Mass/Vol] 4.1 g/dL Normal 3.4-4.8 [facility] Comment on above: Performed By: #### L 503.6075, L503.6550, L501.9985, L503.6150 #### [facility] [address] [place], [address] ALK PHOS 170 U/L High 35-[address] [facility] Comment on above: Performed By: #### L 503.6075, L503.6550, L501.9985, L503.6150 #### [facility] [address] [place], [address] ALT [Catalytic activity/Vol] 50 U/L High <=[address] [facility] Comment on above: Performed By: #### L 503.6075, L503.6550, L501.9985, L503.6150 #### [facility] [address] [place], [address] AST [Catalytic activity/Vol] 41 U/L High <=[address] [facility] Comment on above: Performed By: #### L 503.6075, L503.6550, L501.9985, L503.6150 #### [facility] [address] [place], [address] Bilirubin [Mass/Vol] 0.64 mg/dL Normal 0.00-1.30 [facility] Comment on above: Performed By: #### L 503.6075, L503.6550, L501.9985, L503.6150 #### [facility] [address] [place], [address] Bilirubin.direct [Mass/Vol] 0.28 mg/dL Normal 0.00-0.[address] [facility] Comment on above: Performed By: #### L 503.6075, L503.6550, L501.9985, L503.6150 #### [facility] [address] [place], [address] Globulin (S) [Mass/Vol] 2.9 g/dL Normal 2.2-4.2 [facility] Comment on above: Performed By: #### L 503.6075, L503.6550, L501.9985, L503.6150 #### [facility] [address] [place], [address] T PROT 6.9 g/dL Normal 5.9-8.[address] [facility] Comment on above: Performed By: #### L 503.6075, L503.6550, L501.9985, L503.6150 #### [facility] [address] [place], [place], [address] Prothrombin Time w/INRon INR Coag (PPP) [Relative time] 1.1 {INR} Normal [facility] Comment on above: Performed By: #### L 503.6075, L503.6550, L501.9985, L503.6150 #### [facility] [address] [place], [address] PT Coag (PPP) [Time] 14.0 s Normal 11.7-14.9 [facility] Comment on above: Performed By: #### L 503.6075, L503.6550, L501.9985, L503.6150 #### [facility] [address] [place], [place], [address] Sales Development Representative Office Visit Reporton 12-20-2024 Sales Development Representative Office Visit Report [facility] [address], [address] [place] [address] OFFICE VISIT Date of Service: 12/20/24 MR#: [id number] Acct: [id number] Name: RACHEL MAY Rep #: [id number] : 1950 Provider: REE hinojosa Age/Sex: 74/F Location: [facility] Status: Signed Intake Vital Signs 06/07/24 08:54 12/03/24 15:33 12/20/24 09:07 12/20/24 09:11 Height 4 ft 11 in 4 ft 11 in 4 ft 11 in 4 ft 11 in Weight: 149 lb 148 lb 7 oz BMI 30.1 29.9 BP 133/88 H 106/62 Blood Pressure Location Rt brachial Position Sitting Pulse 72 Pulse Oximetry (%) 98 Oxygen Delivery Method room air Intake Visit Reasons: 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) Chief Complaint: Annual Information Resources Manager Required: No Is patient in pain?: No Allergies phenytoin (From Dilantin) Allergy (Intermediate, Verified 12/20/24 09:22) Hives trimethoprim (From Trimpex) Allergy (Intermediate, Verified 12/20/24 09:22) Hives Medications ???Medication ???Instructions ???Recorded ???Confirmed ???Type calcium carbonate (Calcium 600) 600 mg PO DAILY 10/16/21 12/20/24 History cholecalciferol (vitamin D3) 50 50 mcg PO DAILY 10/16/21 12/20/24 History mcg (2,000 unit) capsule levothyroxine 50 mcg capsule 75 mcg PO DAILY 10/16/21 12/20/24 History resmetirom 80 mg tablet (Rezdiffra) 80 mg PO DAILY #90 tabs 5 12/20/24 Rx Is last menstrual period known: No Post menopausal: Yes Patient : No : No PFSH Medical History Wears glasses Post-menopausal [...] Yes additional social history: - Bill- Retired History 3 Elective abortions Hx Para 2 Spontaneous abortions Hx # Term Pregnancies Ectopic pregnancies Hx # Pregnancies Multiple births # of living children 2 HPI Encounter for routine gynecological examination Details: RACHEL MAY is a 74 year old who presents for annual exam. Denies GEOCHEMICAL MANAGER concerns. Last PAP: na History of abnormal PAP: no Last mammogram: 12/01/24 History of abnormal mammogram: no Colon cancer screenin Other preventative health care screenings: [place] Female Reproductive History Questions: metrorrhagia: No and sexually active: No ROS Const Constitutional: Denies fatigue, weight gain or weight loss Cardio Card: Denies chest pain Resp Resp: Denies cough or dyspnea on exertion GI GI: Denies abdominal pain, bloating, change in stool character, constipation or vomiting : Reports as per HPI; Denies difficulty voiding, pelvic pain, urinary frequency, urinary incontinence, urinary urgency, vaginal discharge or vaginal pruritus Exam Const General: cooperative, healthy appearing, no acute distress and well developed Orientation: alert, oriented to person and oriented to place HENMT Head: normal to inspection Neck Neck: normal visual inspection Chest Breast inspection: normal inspection of the breasts and normal inspection of the axillae Breast palpation: normal palpation of the breasts, normal palpation of the axillae and no axillary lymphadenopathy Resp Effort Inspection: normal respiratory effort GI Palpation: soft, no masses and nontender Rectal Exam: deferred External Female Exam: normal external appearance and normal appearance of the urethra Urethra: normal appearance of the urethra and normal palpation Speculum Exam - Vagina: normal vaginal discharge and vagina atrophic Speculum Exam - Cervix: normal appearance of the cervix Bimanual Exam- Vagina Uterus: normal bimanual exam, uterine size normal, uterine shape normal and non-tender Bimanual Exam- Adnexa, other: normal adnexae, no masses, normal and non-tender Pelvic Support: normal Neuro General: patient alert and patient oriented x3 Psych Affect: normal affect Coding Level of Care Code MC Pelvic/Breast Diagnoses Encounter for gynecological examination without abnormal finding Z01.419 Gynecol (more content not included)... Normal [facility] Gastroenterology Visit Repor ton 12-03-2024 Gastroenterology Visit Report [facility] [address] [place] [address] OFFICE VISIT Date of Service: 12/03/24 MR#: [id number] Acct: [id number] Name: RACHEL MAY Rep #: [id number] : 1950 Provider: Dr. Usman kaplan MD Age/Sex: 74/F Location: [facility] Status: Signed with Addenda ADDENDUM by Dr. Usman Mares MD on 02/19/25 at 1351 HPI Details: RACHEL MAY, is a 74 F who presents to the office today for Addendum 02/18/25 Hi Ms. Ramos, I reviewed your chart, labs and imaging and medications in detail and package insert, research trial and literature available on Reziffra. Acutally, in short you have elevated ALP, GGT and mild elevation in ALT, AST even before starting Rezdiffra since 2018. But recent US liver reported GB, CBD stone normal with no stones or sludges. Therefore, I don't think, it is directly related to Rezdiffra Rezdiffra causes generally 1.5 times elevation in ALT, AST and TB but not elevation in ALP reported in clinical trial of more than 1000 patients. . But out of precaution, will hold Rezdiffra, repeat LFT and GGT, CARLTON, auatoimmune work up after you hold/stop taking Rezdiffra. If you develop Right upper quadrant abdominal pain/discomfort, we can repeat Liver US or HIDA scan but is not needed now. 02/19/25 1351 Date Usman Mares MD cc: Dr. Tyron Knight MD * Signed Intake Vital Signs 06/07/24 08:54 12/03/24 15:33 Height 4 ft 11 in 4 ft 11 in Weight: 149 lb BMI 30.1 BP 133/88 H Blood Pressure Location Rt brachial Position Sitting Pulse 72 Pulse Oximetry (%) 98 Oxygen Delivery Method room air Intake Visit Reasons: 6 M FU Chief Complaint: STRATTON Allergies phenytoin (From Dilantin) Allergy (Intermediate, Verified 06/07/24 08:57) Hives trimethoprim (From Trimpex) Allergy (Intermediate, Verified 06/07/24 08:57) Hives Have you fallen in the past [...] Complaint: STRATTON Details: RACHEL MAY, is a 74 F who presents to the office today [...] Initially noted when she first saw her family law paralegal, Dr. Calloway; then established with [facility] for osteoarthritis who did not feel [...] hiatal hernia. - No gross lesions in (more content not included)... Normal [facility] Breast imaging reportOrdered By: Marielena Esparza on 12-01-2024 Study report [facility] Services [address] [place], [place] [address] SCRN MAMM (CAD)W/CARMINA BILAT MR#: [id number] Acct: [id number] Name: RACHEL MAY Rep #: [id number] : 1950 F 74 From: Briseida Esparza MD PCP: Dr. Tyron Knight MD Status: RE G CLI Study:SCRN MAMM (CAD)W/CARMINA BILAT Date of Exa m: 12/01/24 Exam# [id number] Ordering Dr: Tyron Knight MD EXAM: SCRN MAMM (CAD)W/CARMINA BILAT DATE: 12/01/2024 CLINICAL HISTORY: F, Age 74 y/o , ANNUAL TECHNIQUE: SCRN MAMM (CAD)W/CARMINA BILAT COMPARISON: Prior exam(s) dated 11/28/2023, 11/21/2022. FINDINGS: TISSUE DENSITY: The breasts are heterogeneously dense, which may obscure small masses. The mammogram demonstrates that the patient has dense breasts. Supplemental screening with whole breast ultrasound or MRI may be considered for further evaluation. Bilateral Breast Mammographic Findings: No significant masses, calcifications or other abnormalities are identified. BI/SCRN MAMM (CAD)W/CARMINA BILAT IMPRESSION: There is no mammographic evidence of malignancy. OVERALL FINAL ASSESSMENT BI-RADS 1: NEGATIVE. RECOMMENDATION: Routine annual follow-up in 1 Year A letter with findings and recommendations will be mailed to the patient. Reading Location: [facility] CC: Dr. Tyron Knight MD ~ Information Assurance Engineer: Signed [facility] SCRN MAMM (CAD)W/CARMINA BILATo n 12-01-2024 SCRN MAMM (CAD)W/CARMINA BILAT [facility] Services [address] [place] [address] SCRN MAMM (CAD)W/CARMINA BILAT MR#: [id number] Acct: [id number] Name: RACHEL MAY Rep #: [id number] : 1950 F 74 From: Marielena Esparza MD PCP: Dr. Tyron Knight MD Status: [facility] Study: SCRN MAMM (CAD)W/CARMINA BILAT Date of Exam: 10/20 Exam# [id number] Ordering Dr: Tyron Knight MD EXAM: SCRN MAMM (CAD)W/CARMINA BILAT DATE: 12/01/2024 CLINICAL HISTORY: F, Age 74 y/o , ANNUAL TECHNIQUE: SCRN MAMM (CAD)W/CARMINA BILAT COMPARISON: Prior exam(s) dated 11/28/2023, 11/21/2022. FINDINGS: TISSUE DENSITY: The breasts are heterogeneously dense, which may obscure small masses. The mammogram demonstrates that the patient has dense breasts. Supplemental screening with whole breast ultrasound or MRI may be considered for further evaluation. Bilateral Breast Mammographic Findings: No significant masses, calcifications or other abnormalities are identified. BI/SCRN MAMM (CAD)W/CARMINA BILAT IMPRESSION: There is no mammographic evidence of malignancy. OVERALL FINAL ASSESSMENT BI-RADS 1: NEGATIVE. RECOMMENDATION: Routine annual follow-up in 1 Year A letter with findings and recommendations will be mailed to the patient. Reading Location: [id number] CC: Dr. Tyron Knight MD Information Assurance Engineer: Signed Normal [facility] Bone density reportOrdered B y: Bandar Kris on 11-23-2024 Study report Skeletal system DXA [facility] [address] [place], [place] [address] Dexa Bone Density Study MR#: [id number] Acct: [id number] Name: RACHEL MAY Rep #: [id number] : 1950 F 74 From: Micheal Ponce MD PCP: Dr. Tyron Knight MD Status: RE G CLI Study:Dexa Bone Density Study Date of Exam: 11/23/24 Exam# [id number] Ordering Dr: Tyorn Knight MD PROCEDURE: DEXA BONE DENSITY STUDY 11/23/2024 REASON FOR EXAM: F, age 74 y/o . Postmenopausal. TECHNIQUE: DEXA BONE DENSITY STUDY COMPARISON: Prior study dated November 21, 2022. FINDINGS: BMD and T-SCORES Lumbar spine: 0.767 g/cm2, T-score -2.3 Levels: L1 through L4 Change from prior: Improvement of 4.7%. Left femoral neck: 0.794 g/cm2, T-score -0.5 Femoral neck comparison data not recommended for monitoring change. Left total hip: 0.890 g/cm2, T-score -0.4 Change from prior: Improvement of 1.3%. Right femoral neck: 0.831 g/cm2, T-score -0.2 Femoral neck comparison data not recommended for monitoring change. Right total hip: 0.841 g/cm2, T-score -0.8 Change from prior: Improvement of 1.1%. The World Health Organization has defined the following categories based on bonedensity: Normal bone density: T-score equal to or greater than -1.0 Osteopenia: T-score between -1.0 and -2.5 Osteoporosis: T-score equal to or less than -2.5 The patient does meet the pharmacological treatment recommendations for prevention of osteoporosis. BD/Dexa Bone Density Study IMPRESSION: OSTEOPENIA. Recommend follow-up as clinically warranted. Reading Location: [id number] CC: Dr. Tyron Knight MD ~ Information Assurance Engineer: Signed [facility] Dexa Bone Density Studyon Dexa Bone Density Study [facility] Imaging Services [address] [place] [address] [id number] Dexa Bone Density Study MR#: [id number] Acct: [id number] Name: RACHEL MAY Rep #: [id number] : 1950 F 74 From: Bandar yung MD PCP: Dr. Tyron Knight MD Status: REG CLI Study: Dexa Bone Density Study Date of Exam: 11/23/24 Exam# [id number] Ordering Dr: Tyron Knight MD PROCEDURE: DEXA BONE DENSITY STUDY 11/23/2024 REASON FOR EXAM: F, age 74 y/o . Postmenopausal. TECHNIQUE: DEXA BONE DENSITY STUDY COMPARISON: Prior study dated November 21, 2022. FINDINGS: BMD and T-SCORES Lumbar spine: 0.767 g/cm2, T-score -2.3 Levels: L1 through L4 Change from prior: Improvement of 4.7%. Left femoral neck: 0.794 g/cm2, T-score -0.5 Femoral neck comparison data not recommended for monitoring change. Left total hip: 0.890 g/cm2, T-score -0.4 Change from prior: Improvement of 1.3%. Right femoral neck: 0.831 g/cm2, T-score -0.2 Femoral neck comparison data not recommended for monitoring change. Right total hip: 0.841 g/cm2, T-score -0.8 Change from prior: Improvement of 1.1%. The World Health Organization has defined the following categories based on bone density: Normal bone density: T-score equal to or greater than -1.0 Osteopenia: T-score between -1.0 and -2.5 Osteoporosis: T-score equal to or less than -2.5 The patient does meet the pharmacological treatment recommendations for prevention of osteoporosis. BD/Dexa Bone Density Study IMPRESSION: OSTEOPENIA. Recommend follow-up as clinically warranted. Reading Location: [id number] CC: Dr. Tyron Knight MD Information Assurance Engineer: Signed Normal [facility] ABD Limited w/ Elastographyo n 11-08-2024 ABD Limited w/ Elastography [facility] Imaging Services [address] [place] [address] ABD Limited w/ Elastography MR#: [id number] Acct: [id number] Name: RACHEL MAY Rep #: [id number] : 1950 F 74 From: Bandar yung MD PCP: Dr. Tyron Knight MD Status: REG CLI Study: ABD Limited w/ Elastography Date of Exam: 10/26 08/20 Exam# [id number] Ordering Dr: Usman Mares MD PROCEDURE: ABD [...] quadrant ascites. US/ABD Limited w/ Elastography IMPRESSION: Hcld-sc-sjjzirjz degree of hepatic fibrosis. Reference Values: SRU [...] measurement may be in question. Reading Location: [place] [address] CC: Dr. Tyron Knight MD; Dr. Usman Mares MD Information Assurance Engineer: Signed Normal [facility] Absolute lymphocyte countOrd ered By: Usman Mares on 11-01-2024 Lymphocytes Auto (Unsp spec) [#/Vol] 1.44 10*3/uL 0.83-4.[address] [facility] Absolute neutrophil countOrd ered By: Usman Mares on 11-01-2024 Neutrophils (Bld) [#/Vol] 1.6 10*3/uL Low 2.0-7.[address] [facility] Anion gap in Serum or Plasma Ordered By: Usman Mares on 11-01-2024 Anion gap [Moles/Vol] 10 mmol/L 5-15 [facility] Automated lymphocyte count a s percentage of total leukocytesOrdered By: Usman Mares on 11-01-2024 Lymphocytes/100 WBC Auto (Unsp spec) 36.8 % 19-[address] [facility] BUN/creatinine ratioOrdered By: Usman Mares on 11-01-2024 Urea nitrogen/Creatinine [Mass ratio] 19.1 mg/mg 10-[address] [facility] Basophil percentageOrdered B y: Usman Mares on 11-01-2024 Basophils/100 WBC (Bld) 1.5 % High 0-1 [facility] Bilirubin, totalOrdered By: Usman Mares on 11-01-2024 Bilirubin [Mass/Vol] 0.60 mg/dL 0.00-1.30 [facility] CBC W/Diff, Automatedon Absolute Lymph 1.44 X10 3/uL Normal 0.83-4.[address] [facility] Comment on above: Order Comment: SEND CBCD,CMP,TSH,FT4 TO Performed By: #### L 621.2457, L100.0100, L300.3900, L506.0400, L501.9520, L501.9985, L501.6710 ####[facility] [address] [place], [place], [id number] Absolute Neut 1.6 X10 3/uL Low 2.0-7.[address] [facility] Comment on above: Order Comment: SEND CBCD,CMP,TSH,FT4 TO Performed By: #### L 500.4050, L100.0100, L300.3900, L506.0400, L501.9520, L501.9985, L501.6710 ####[facility] [address] [place], [address] Basophils/100 WBC (Bld) 1.5 % High 0-1 [facility] Comment on above: Order Comment: SEND CBCD,CMP,TSH,FT4 TO Performed By: #### L 500.4050, L100.0100, L300.3900, L506.0400, L501.9520, L501.9985, L501.6710 ####[facility] [address] [place], [address] Eosinophils/100 WBC (Bld) 4.6 % Normal 0-[address] [facility] Comment on above: Order Comment: SEND CBCD,CMP,TSH,FT4 TO Performed By: #### L 500.4050, L100.0100, L300.3900, L506.0400, L501.9520, L501.9985, L501.6710 ####[facility] [address] [place], [address] Erythrocyte distribution width (RBC) [Ratio] 12.3 % Normal 11.6-14.[address] [facility] Comment on above: Order Comment: SEND CBCD,CMP,TSH,FT4 TO Performed By: #### L 500.4050, L100.0100, L300.3900, L506.0400, L501.9520, L501.9985, L501.6710 ####[facility] [address] [place], [address] Hematocrit (Bld) [Volume fraction] 44.8 % Normal 37-[address] [facility] Comment on above: Order Comment: SEND CBCD,CMP,TSH,FT4 TO Performed By: #### L 500.4050, L100.0100, L300.3900, L506.0400, L501.9520, L501.9985, L501.6710 ####[facility] [address] [place], [address] Hemoglobin (Bld) [Mass/Vol] 15.5 g/dL High 12.0-15.[address] [facility] Comment on above: Order Comment: SEND CBCD,CMP,TSH,FT4 TO Performed By: #### L 500.4050, L100.0100, L300.3900, L506.0400, L501.9520, L501.9985, L501.6710 ####[facility] [address] [place], [address] IG% 0.000 Normal 0.0-0.[address] [facility] Comment on above: Order Comment: SEND CBCD,CMP,TSH,FT4 TO Result Comment: IG% - Immature Granulocytes (promyelocytes, myelocytes and metamyelocytes) > 1% indicates that a LEFT SHIFT is Present. Performed By: #### L 500.4050, L100.0100, L300.3900, L506.0400, L501.9520, L501.9985, L501.6710 ####[facility] [address] [place], [address] Lymphocytes/100 WBC (Bld) 36.8 % Normal 19-[address] [facility] Comment on above: Order Comment: SEND CBCD,CMP,TSH,FT4 TO Performed By: #### L 500.4050, L100.0100, L300.3900, L506.0400, L501.9520, L501.9985, L501.6710 ####[facility] [address] [place], [address] MCH (RBC) [Entitic mass] 30.5 pg Normal 27.0-32.[address] [facility] Comment on above: Order Comment: SEND CBCD,CMP,TSH,FT4 TO Performed By: #### L 500.4050, L100.0100, L300.3900, L506.0400, L501.9520, L501.9985, L501.6710 ####[facility] [address] [place], [address] MCHC (RBC) [Mass/Vol] 34.6 g/dL Normal 32-36 [facility] Comment on above: Order Comment: SEND CBCD,CMP,TSH,FT4 TO Performed By: #### L 500.4050, L100.0100, L300.3900, L506.0400, L501.9520, L501.9985, L501.6710 ####[facility] [address] [place], [address] MCV (RBC) [Entitic vol] 88.0 fL Normal 81-99 [facility] Comment on above: Order Comment: SEND CBCD,CMP,TSH,FT4 TO Performed By: #### L 500.4050, L100.0100, L300.3900, L506.0400, L501.9520, L501.9985, L501.6710 ####[facility] [address] [place], [address] Monocytes/100 WBC (Bld) 15.6 % High 0-10 [facility] Comment on above: Order Comment: SEND CBCD,CMP,TSH,FT4 TO Performed By: #### L 500.4050, L100.0100, L300.3900, L506.0400, L501.9520, L501.9985, L501.6710 ####[facility] [address] [place], [address] Neutrophils/100 WBC (Bld) 41.5 % Low 47-[address] [facility] Comment on above: Order Comment: SEND CBCD,CMP,TSH,FT4 TO Performed By: #### L 500.4050, L100.0100, L300.3900, L506.0400, L501.9520, L501.9985, L501.6710 ####[facility] [address] [place], [address] Nucleated RBC (Bld) [#/Vol] 0 10*3/uL Normal 0-[address] [facility] Comment on above: Order Comment: SEND CBCD,CMP,TSH,FT4 TO Performed By: #### L 500.4050, L100.0100, L300.3900, L506.0400, L501.9520, L501.9985, L501.6710 ####[facility] [address] [place], [address] Platelet mean volume (Bld) [Entitic vol] 10.7 fL Normal 6.2-12.[address] [facility] Comment on above: Order Comment: SEND CBCD,CMP,TSH,FT4 TO Performed By: #### L 500.4050, L100.0100, L300.3900, L506.0400, L501.9520, L501.9985, L501.6710 ####[facility] [address] [place], [address] Platelets (Bld) [#/Vol] 227 10*3/uL Normal 150-[address] [facility] Comment on above: Order Comment: SEND CBCD,CMP,TSH,FT4 TO Performed By: #### L 500.4050, L100.0100, L300.3900, L506.0400, L501.9520, L501.9985, L501.6710 ####[facility] [address] [place], [address] RBC (Bld) [#/Vol] 5.09 10*6/uL Normal 4.2-5.4 [facility] Comment on above: Order Comment: SEND CBCD,CMP,TSH,FT4 TO Performed By: #### L 500.4050, L100.0100, L300.3900, L506.0400, L501.9520, L501.9985, L501.6710 ####[facility] [address] [place], [address] RDW SD 39.5 fl Normal 35.1-43.[address] [facility] Comment on above: Order Comment: SEND CBCD,CMP,TSH,FT4 TO Performed By: #### L 500.4050, L100.0100, L300.3900, L506.0400, L501.9520, L501.9985, L501.6710 ####[facility] [address] [place], [address] WBC (Bld) [#/Vol] 3.9 10*3/uL Low 4.4-11.0 [facility] Comment on above: Order Comment: SEND CBCD,CMP,TSH,FT4 TO Performed By: #### L 500.4050, L100.0100, L300.3900, L506.0400, L501.9520, L501.9985, L501.6710 ####[facility] [address] [place], [address] Absolute Neut Normal 2.0-7.[address] [facility] Comment on above: Order Comment: Order Date: 10/28/24Order Info: 0184-1 - CBCD Result Comment: DUP Performed By: #### L 100.0100, L500.4100 ####[facility] [address] [place], [address] HCT Normal 37-[address] [facility] Comment on above: Order Comment: Order Date: 10/28/24Order Info: 0184-1 - CBCD Result Comment: DUP Performed By: #### L 100.0100, L500.4100 ####[facility] [address] [place], [address] HGB Normal 12.0-15.[address] [facility] Comment on above: Order Comment: Order Date: 10/28/24Order Info: 0184-1 - CBCD Result Comment: DUP Performed By: #### L 100.0100, L500.4100 ####[facility] [address] [place], [address] MCH Normal 27.0-32.[address] [facility] Comment on above: Order Comment: Order Date: 10/28/24Order Info: 0184-1 - CBCD Result Comment: DUP Performed By: #### L 100.0100, L500.4100 ####[facility] [address] [place], [address] MCHC Normal 32-[address] [facility] Comment on above: Order Comment: Order Date: 10/28/24Order Info: 0184-1 - CBCD Result Comment: DUP Performed By: #### L 100.0100, L500.4100 ####[facility] [address] [place], [address] MCV Normal 81-[address] [facility] Comment on above: Order Comment: Order Date: 10/28/24Order Info: 0184-1 - CBCD Result Comment: DUP Performed By: #### L 100.0100, L500.4100 ####[facility] [address] [place], [address] NEUT% Normal 47-[address] [facility] Comment on above: Order Comment: Order Date: 10/28/24Order Info: 0184-1 - CBCD Result Comment: DUP Performed By: #### L 100.0100, L500.4100 ####[facility] [address] [place], [address] PLT Normal 150-[address] [facility] Comment on above: Order Comment: Order Date: 10/28/24Order Info: 0184-1 - CBCD Result Comment: DUP Performed By: #### L 100.0100, L500.4100 ####[facility] [address] [place], [address] RBC Normal 4.2-5.[address] [facility] Comment on above: Order Comment: Order Date: 10/28/24Order Info: 0184-1 - CBCD Result Comment: DUP Performed By: #### L 100.0100, L500.4100 ####[facility] [address] [place], [address] RDW CV Normal 11.6-14.[address] [facility] Comment on above: Order Comment: Order Date: 10/28/24Order Info: 0184-1 - CBCD Result Comment: DUP Performed By: #### L 100.0100, L500.4100 ####[facility] [address] [place], [address] RDW SD Normal 35.1-43.[address] [facility] Comment on above: Order Comment: Order Date: 10/28/24Order Info: 0184-1 - CBCD Result Comment: DUP Performed By: #### L 100.0100, L500.4100 ####[facility] [address] [place], [address] WBC Normal 4.4-11.[address] [facility] Comment on above: Order Comment: Order Date: 10/28/24Order Info: 0184-1 - CBCD Result Comment: DUP Performed By: #### L 100.0100, L500.4100 ####[facility] [address] [place], [address] CRPon 11-01-2024 C-REACTIVE PROT < 3.00 Normal 0.0-3.[address] [facility] Comment on above: Order Comment: SEND CBCD,CMP,TSH,FT4 TO Performed By: #### L 500.4050, L100.0100, L300.3900, L506.0400, L501.9520, L501.9985, L501.6710 ####[facility] [address] [place], [place], [id number] Calculated very low density lipoprotein (VLDL) cholesterol measurementOrdered By: Tyron Knight on 11-01-2024 Calculated very low density lipoprotein (VLDL) cholesterol measurement 12 mg/dL 5-[address] [facility] Carbon dioxide, total [Moles /volume] in Central venous bloodOrdered By: Usman Mares on 11-01-2024 CO2 [Moles/Vol] 24.6 mmol/L 21.0-32.[address] [facility] Chloride assayOrdered By: Torrey Mares on 11-01-2024 Chloride [Moles/Vol] 105 mmol/L 98-108 [facility] Comprehensive Metabolic Prof ilon 11-01-2024 Albumin [Mass/Vol] 4.0 g/dL Normal 3.4-4.8 [facility] Comment on above: Order Comment: SEND CBCD,CMP,TSH,FT4 TO Performed By: #### L 500.4050, L100.0100, L300.3900, L506.0400, L501.9520, L501.9985, L501.6710 ####[facility] [address] [facility] [place], [place], [id number] Albumin/Globulin [Mass ratio] 1.3 {ratio} Normal 0.9-2.[address] [facility] Comment on above: Order Comment: SEND CBCD,CMP,TSH,FT4 TO Performed By: #### L 500.4050, L100.0100, L300.3900, L506.0400, L501.9520, L501.9985, L501.6710 ####[facility] [address] [place], [place], [address] ALK PHOS 194 U/L High 35-[address] [facility] Comment on above: Order Comment: SEND CBCD,CMP,TSH,FT4 TO Performed By: #### L 500.4050, L100.0100, L300.3900, L506.0400, L501.9520, L501.9985, L501.6710 ####[facility] [address] [place], [address] ALT [Catalytic activity/Vol] 51 U/L High <=[address] [facility] Comment on above: Order Comment: SEND CBCD,CMP,TSH,FT4 TO Performed By: #### L 500.4050, L100.0100, L300.3900, L506.0400, L501.9520, L501.9985, L501.6710 ####[facility] [address] [place], [place], [phone]([phone] AST [Catalytic activity/Vol] 48 U/L High <=[address] [facility] Comment on above: Order Comment: SEND CBCD,CMP,TSH,FT4 TO Performed By: #### L 500.4050, L100.0100, L300.3900, L506.0400, L501.9520, L501.9985, L501.6710 ####[facility] [address] [place], [place], [id number] Bilirubin [Mass/Vol] 0.60 mg/dL Normal 0.00-1.30 [facility] Comment on above: Order Comment: SEND CBCD,CMP,TSH,FT4 TO Performed By: #### L 500.4050, L100.0100, L300.3900, L506.0400, L501.9520, L501.9985, L501.6710 ####[facility] [address] [place], [place], [phone](820) BUN/CRE 19.1 RATIO Normal 10-[address] [facility] Comment on above: Order Comment: SEND CBCD,CMP,TSH,FT4 TO Performed By: #### L 500.4050, L100.0100, L300.3900, L506.0400, L501.9520, L501.9985, L501.6710 ####[facility] [address] [place], [address] Calcium [Mass/Vol] 9.3 mg/dL Normal 7.6-11.0 [facility] Comment on above: Order Comment: SEND CBCD,CMP,TSH,FT4 TO Performed By: #### L 500.4050, L100.0100, L300.3900, L506.0400, L501.9520, L501.9985, L501.6710 ####[facility] [address] [place], [address] Chloride [Moles/Vol] 105 mmol/L Normal 98-108 [facility] Comment on above: Order Comment: SEND CBCD,CMP,TSH,FT4 TO Performed By: #### L 500.4050, L100.0100, L300.3900, L506.0400, L501.9520, L501.9985, L501.6710 ####[facility] [address] [place], [address] CO2 [Moles/Vol] 24.6 mmol/L Normal 21.0-32.[address] [facility] Comment on above: Order Comment: SEND CBCD,CMP,TSH,FT4 TO Performed By: #### L 500.4050, L100.0100, L300.3900, L506.0400, L501.9520, L501.9985, L501.6710 ####[facility] [address] [place], [address] Creatinine [Mass/Vol] 0.76 mg/dL Normal 0.70-1.20 [facility] Comment on above: Order Comment: SEND CBCD,CMP,TSH,FT4 TO Performed By: #### L 500.4050, L100.0100, L300.3900, L506.0400, L501.9520, L501.9985, L501.6710 ####[facility] [address] [place], [address] GAP 10 Normal 5-[address] [facility] Comment on above: Order Comment: SEND CBCD,CMP,TSH,FT4 TO Performed By: #### L 500.4050, L100.0100, L300.3900, L506.0400, L501.9520, L501.9985, L501.6710 ####[facility] [address] [place], [place], [phone] GFR/1.73 sq M.predicted among non-blacks MDRD (S/P/Bld) [Vol rate/Area] 83 mL/min/{1.73_m2} Normal >[address] [facility] Comment on above: Order Comment: SEND CBCD,CMP,TSH,FT4 TO Result Comment: mL/m in/1.73m2 CKD-EPI Creatinine Equation (2020) Performed By: #### L 500.4050, L100.0100, L300.3900, L506.0400, L501.9520, L501.9985, L501.6710 ####[facility] [address] [place], [address] Globulin (S) [Mass/Vol] 3.0 g/dL Normal 2.2-4.2 [facility] Comment on above: Order Comment: SEND CBCD,CMP,TSH,FT4 TO Performed By: #### L 500.4050, L100.0100, L300.3900, L506.0400, L501.9520, L501.9985, L501.6710 ####[facility] [address] [place], [place], [phone] Glucose [Mass/Vol] 96 mg/dL Normal 70-99 [facility] Comment on above: Order Comment: SEND CBCD,CMP,TSH,FT4 TO Performed By: #### L 500.4050, L100.0100, L300.3900, L506.0400, L501.9520, L501.9985, L501.6710 ####[facility] [address] [place], [address] Potassium [Moles/Vol] 4.1 mmol/L Normal 3.3-5.1 [facility] Comment on above: Order Comment: SEND CBCD,CMP,TSH,FT4 TO Performed By: #### L 500.4050, L100.0100, L300.3900, L506.0400, L501.9520, L501.9985, L501.6710 ####[facility] [address] [place], [address] Sodium [Moles/Vol] 140 mmol/L Normal 133-145 [facility] Comment on above: Order Comment: SEND CBCD,CMP,TSH,FT4 TO Performed By: #### L 500.4050, L100.0100, L300.3900, L506.0400, L501.9520, L501.9985, L501.6710 ####[facility] [address] [place], [address] T PROT 7.0 g/dL Normal 5.9-8.[address] [facility] Comment on above: Order Comment: SEND CBCD,CMP,TSH,FT4 TO Performed By: #### L 500.4050, L100.0100, L300.3900, L506.0400, L501.9520, L501.9985, L501.6710 ####[facility] [address] [place], [address] Urea nitrogen [Mass/Vol] 15 mg/dL Normal 4-[address] [facility] Comment on above: Order Comment: SEND CBCD,CMP,TSH,FT4 TO Performed By: #### L 500.4050, L100.0100, L300.3900, L506.0400, L501.9520, L501.9985, L501.6710 ####[facility] [address] [place], [address] Eosinophil percentageOrdered By: Usman Mares on 11-01-2024 Eosinophils/100 WBC (Bld) 4.6 % 0-[address] [facility] Erythrocyte distribution wid th ratioOrdered By: Usman Mares on 11-01-2024 Erythrocyte distribution width (RBC) [Ratio] 12.3 % 11.6-14.[address] [facility] Erythrocyte distribution wid th standard deviationOrdered By: Usman Mares on 11-01-2024 Erythrocyte distribution width (RBC) [Ratio] 39.5 fl 35.1-43.[address] [facility] Ferritinon 11-01-2024 Ferritin [Mass/Vol] 223 ng/mL Normal 22-378 [facility] Comment on above: Order Comment: PLEALONSO Luna AD TO BLOOD DONE ON 06/08/24 Performed By: #### L 503.6075, L503.6550, L501.9985, L503.6150 #### [facility] [address] [place], [place], [id number] Glomerular filtration rate ( GFR) estimation/1.73 sq m using serum, plasma, or whole bOrdered By: Usman Mares on 11-01-2024 GFR/1.73 sq M.predicted among non-blacks MDRD (S/P/Bld) [Vol rate/Area] 83 mL/min/{1.73_m2} >[address] [facility] Comment on above: mL/min/1.73m2 CKD-EP I Creatinine Equation (2020) Hematocrit Auto (Bld) [Volum e fraction]Ordered By: Usman Mares on 11-01-2024 Hematocrit (Bld) [Volume fraction] 44.8 % 37-[address] [facility] Hemoglobin A1con 07-07-2025 HbA1c (Bld) [Mass fraction] 5.4 % Normal <=5.[address] [facility] Comment on above: Order Comment: KRISTINA E AD TO BLOOD DONE ON 06/08/24 Result Comment: Norm al < 5.7 % Prediabetic 5.7 - 6.4 % Diabetic >or= 6.5 % Please note range changes. Performed By: #### L [id number], [id number], L501.9985, [id number] #### [facility] [address] [place], [address] Hemoglobin A1c percentageOrd ered By: Usman Mares on 11-01-2024 HbA1c (Bld) [Mass fraction] 5.4 % <5.[address] [facility] Comment on above: Normal < 5.7 % Predi abetic 5.7 - 6.4 % Diabetic >or= 6.5 % Please note range changes. Hemoglobin measurementOrdere d By: Usman Mares on 11-01-2024 Hemoglobin (Bld) [Mass/Vol] 15.5 g/dL High 12.0-15.[address] [facility] Immature granulocytes/100 WB C Auto (Bld)Ordered By: Usman Mares on 11-01-2024 Immature granulocytes/100 WBC (Bld) 0.000 % 0.0-0.[address] [facility] Comment on above: IG% - Immature Granu locytes (promyelocytes, myelocytes and metamyelocytes) > 1% indicates that a LEFT SHIFT is Present. International normalized rat io (INR) calculationOrdered By: Usman Mares on 11-01-2024 INR Coag (Bld) [Relative time] 1.0 {INR} [facility] Ironon 11-01-2024 Iron [Mass/Vol] 102 ug/dL Normal 50-[address] [facility] Comment on above: Order Comment: KRISTINA E AD TO BLOOD DONE ON 06/08/24 Performed By: #### L 503.6075, L503.6550, L501.9985, L503.6150 #### [facility] [address] [place], [address] Iron measurement (mass/mass) Ordered By: Tyron Knight on 11-01-2024 Iron (Unsp spec) [Mass/Mass] 102 ug/dL 50-[address] [facility] LDL calc ser/plasOrdered By: Tyron Knight on 11-01-2024 Cholesterol in LDL [Mass/Vol] 77 mg/dL [facility] Comment on above: Ihcpltieer=501-854 m g/dL & Higher Efpq=694 mg/dL or greater Laboratory - Chemistry and C hemistry - challengeOrdered By: Usman Mares on 11-01-2024 AST [Catalytic activity/Vol] 48 U/L High <[address] [facility] Lipid Profileon 11-01-2024 CHOL:HDL 2.[address] [facility] Comment on above: Order Comment: Order Date: 10/28/24Order Info: [id number] - CMPOrder Date: 06/30/24Order Info: [id number] - LIPIDOrder Info: [id number] - TSHOrder Info: [id number] - FEOrder Info: [id number] - FEROrder Info: 3024-7 - T4F Performed By: #### L 100.0100, L500.4100 ####[facility] [address] [place], [address] Cholesterol [Mass/Vol] 141 mg/dL Normal <=200 [facility] Comment on above: Order Comment: Order Date: 10/28/24Order Info: [id number] - CMPOrder Date: 06/30/24Order Info: [id number] - LIPIDOrder Info: [id number] - TSHOrder Info: [id number] - FEOrder Info: [id number] - FEROrder Info: 3024-7 - T4F Result Comment: Chol esterol level, Desirable <200 mg/dL Borderline high cholesterol 200-239 mg/dL High cholesterol >=240 mg/dL Recommendations of the NCEP Adult Treatment Panel for the following risk-cutoff thresholds for the [place] population. Performed By: #### L 100.0100, L500.4100 ####[facility] [address] [place], [address] Cholesterol in HDL [Mass/Vol] 51 mg/dL Normal [facility] Comment on above: Order Comment: Order Date: 10/28/24Order Info: [id number]- - CMPOrder Date: 06/30/24Order Info: [id number] - LIPIDOrder Info: [id number] - TSHOrder Info: [id number] - FEOrder Info: [id number] - FEROrder Info: 3027 - T4F Result Comment: [employer] onal Cholesterol Education Program (NCEP) guidelines: <40 mg/dL: Low HDL-cholesterol (major risk factor for CHD) >= 60 mg/dL: High HDL-cholesterol (negative risk factor for CHD) HDL-cholesterol is affected by a number of factors, e.g. smoking, exercise, hormones, sex and age. Performed By: #### L 100.0100, L500.4100 ####[facility] [address] [facility] [address] Cholesterol in LDL [Mass/Vol] 77 mg/dL Normal [facility] Comment on above: Order Comment: Order Date: 10/28/24Order Info: [id number] - CMPOrder Date: 06/30/24Order Info: [id number] - LIPIDOrder Info: 6-3 - TSHOrder Info: [id number] - FEOrder Info: 4 - FEROrder Info: 7 - T4F Result Comment: Bord bpkmwc=973-120 mg/dL Higher Cppz=705 mg/dL or greater Performed By: #### L 100.0100, L500.4100 ####[facility] [address] [facility] [address] Cholesterol in VLDL [Mass/Vol] 12 mg/dL Normal 5-[address] [facility] Comment on above: Order Comment: Order Date: 10/28/24Order Info: [id number]- - CMPOrder Date: 06/30/24Order Info: [id number] - LIPIDOrder Info: [id number] - TSHOrder Info: [id number] - FEOrder Info: [id number] - FEROrder Info: [id number] - T4F Performed By: #### L 100.0100, L500.4100 ####[facility] [address] [place], [place], [id number] Triglyceride [Mass/Vol] 61 mg/dL Normal [facility] Comment on above: Order Comment: Order Date: 10/28/24Order Info: [id number] - CMPOrder Date: 06/30/24Order Info: [id number] - LIPIDOrder Info: [id number] - TSHOrder Info: [id number] - FEOrder Info: [id number] - FEROrder Info: 3024-7 - T4F Result Comment: The drugs N-Acetylcysteine and Metamizole may falsely depress this assay. Normal range: <150 mg/dL Borderline High: 150-199 mg/dL High: 200-499 mg/dL Very High: >500 mg/dL Performed By: #### L 100.0100, L500.4100 ####[facility] [address] [place], [place], [id number] MCV (mean corpuscular volume ) determinationOrdered By: Usman Mares on 11-01-2024 MCV (RBC) [Entitic vol] 88.0 fL 81-99 [facility] Mean corpuscular hemoglobin (MCH) determinationOrdered By: Usman Mares on 11-01-2024 MCH (RBC) [Entitic mass] 30.5 pg 27.0-32.[address] [facility] Mean corpuscular hemoglobin concentration (MCHC) determinationOrdered By: Usman Mares on 11-01-2024 MCHC (RBC) [Mass/Vol] 34.6 g/dL 32-36 [facility] Mean platelet volume determi nationOrdered By: Usman Mares on 11-01-2024 Platelet mean volume (Bld) [Entitic vol] 10.7 fL 6.2-12.[address] [facility] Monocyte percentageOrdered B y: Usman Mares on 11-01-2024 Monocytes/100 WBC (Bld) 15.6 % High 0-10 [facility] Neutrophil percentageOrdered By: Usman Mares on 11-01-2024 Neutrophils/100 WBC (Bld) 41.5 % Low 47-[address] [facility] Nucleated red blood cell per centageOrdered By: Usman Mares on 11-01-2024 Nucleated RBC/100 WBC (Bld) [Ratio] 0 % 0-[address] [facility] Platelet countOrdered By: Torrey Mares on 11-01-2024 Platelets (Bld) [#/Vol] 227 10*3/uL 150-[address] [facility] Potassium measurement (mass/ volume)Ordered By: Usman Mares on 11-01-2024 Potassium (Unsp spec) [Mass/Vol] 4.1 mmol/L 3.3-5.[address] [facility] Prothrombin Time w/INRon INR Coag (PPP) [Relative time] 1.0 {INR} Normal [facility] Comment on above: Order Comment: SEND CBCD,CMP,TSH,FT4 TO Performed By: #### L 500.4050, L100.0100, L300.3900, L506.0400, L501.9520, L501.9985, L501.6710 ####[facility] [address] [place], [place], [id number] PT Coag (PPP) [Time] 13.6 s Normal 11.7-14.9 [facility] Comment on above: Order Comment: SEND CBCD,CMP,TSH,FT4 TO Performed By: #### L 500.4050, L100.0100, L300.3900, L506.0400, L501.9520, L501.9985, L501.6710 ####[facility] [address] [place], [place], [id number] Prothrombin timeOrdered By: Usman Mares on 11-01-2024 PT Coag (PPP) [Time] 13.6 s 11.7-14.9 [facility] RBC Auto (Bld) [#/Vol]Ordere d By: Usman Mares on 11-01-2024 RBC (Bld) [#/Vol] 5.09 10*6/uL 4.2-5.4 [facility] Screening total cholesterol/ high density lipoprotein (HDL) cholesterol ratioOrdered By: Tyron Knight on 11-01-2024 Cholesterol.total/Kitty sterol in HDL [Mass ratio] 2.74 {ratio} [facility] Serum creatinine measurement (mass/volume)Ordered By: Usman Mares on 11-01-2024 Creatinine [Mass/Vol] 0.76 mg/dL 0.70-1.20 [facility] Serum globulin measurementOr dered By: Usman Mares on 11-01-2024 Globulin (S) [Mass/Vol] 3.0 g/dL 2.2-4.2 [facility] Serum glucose measurement (m ass/volume)Ordered By: Usman Mares on 11-01-2024 Glucose [Mass/Vol] 96 mg/dL 70-99 [facility] Serum or plasma C reactive p rotein measurement (mass/volume)Ordered By: Usman Mares on 11-01-2024 CRP [Mass/Vol] mg/L 0.0-3.[address] [facility] Serum or plasma alanine aponte otransferase (ALT) measurementOrdered By: Usman Mares on 11-01-2024 ALT [Catalytic activity/Vol] 51 U/L High <[address] [facility] Serum or plasma albumin negra urement (mass/volume)Ordered By: Usman Mares on 11-01-2024 Albumin [Mass/Vol] 4.0 g/dL 3.4-4.8 [facility] Serum or plasma albumin/glob ulin mass ratioOrdered By: Usman Mares on 11-01-2024 Albumin/Globulin [Mass ratio] 1.3 {ratio} 0.9-2.[address] [facility] Serum or plasma alkaline angela sphatase measurementOrdered By: Usman Mares on 11-01-2024 ALP [Catalytic activity/Vol] 194 U/L High 35-[address] [facility] Serum or plasma calcium negra urement (mass/volume)Ordered By: Usman Mares on 11-01-2024 Calcium [Mass/Vol] 9.3 mg/dL 7.6-11.0 [facility] Serum or plasma cholesterol in HDL measurement (mass/volume)Ordered By: Tyron Knight on 11-01-2024 Cholesterol in HDL [Mass/Vol] 51 mg/dL >[address] [facility] Comment on above: National Cholesterol Education Program (NCEP) guidelines:<40 mg/dL: Low HDL-cholesterol (major risk factor for CHD)>= 60 mg/dL: High HDL-cholesterol (negative risk factor for CHD)HDL-cholesterol is affected by a number of factors, e.g. smoking, exercise, hormones, sex and age. Serum or plasma cholesterol measurement (mass/volume)Ordered By: Tyron Knight on 11-01-2024 Cholesterol [Mass/Vol] 141 mg/dL <201 [facility] Comment on above: Cholesterol level, D esirable <200 mg/dLBorderline high cholesterol 200-239 mg/dLHigh cholesterol >=240 mg/dLRecommendations of the NCEP Adult Treatment Panel for the following risk-cutoff thresholds for the [place] population. Serum or plasma ferritin rajesh surement (mass/volume)Ordered By: Tyron Knight on 11-01-2024 Ferritin [Mass/Vol] 223 ng/mL 22-378 [facility] Serum or plasma urea nitroge n measurement (mass/volume)Ordered By: Usman Mares on 11-01-2024 Urea nitrogen [Mass/Vol] 15 mg/dL 4-[address] [facility] Sodium levelOrdered By: Prosper Mares on 11-01-2024 Sodium [Moles/Vol] 140 mmol/L 133-145 [facility] T4 Free Directon 11-01-2024 T4 FREE DIRECT 1.10 ng/dL Normal 0.76-1.[address] [facility] Comment on above: Order Comment: KRISTINA Luna AD TO BLOOD DONE ON 06/08/24 Performed By: #### L 503.6075, L503.6550, L501.9985, L503.6150 #### [facility] [address] [place], [address] T4 freeOrdered By: Usman narayanan on 11-01-2024 Free T4 [Mass/Vol] 1.10 ng/dL 0.76-1.46 [facility] TSH DL <= 0.005 mIU/L QnOrde red By: Usman Mares on 11-01-2024 TSH Qn 0.041 uIU/mL Low 0.300-4.[address] [facility] Thyroid Stim Hormone (TSH)on 11-01-2024 TSH 0.041 uIU/mL Low 0.300-4.[address] [facility] Comment on above: Order Comment: SEND CBCD,CMP,TSH,FT4 TO Performed By: #### L 500.4050, L100.0100, L300.3900, L506.0400, L501.9520, L501.9985, L501.6710 ####[facility] [address] [place], [address] Total proteinOrdered By: Camila Mares on 11-01-2024 Protein [Mass/Vol] 7.0 g/dL 5.9-8.4 [facility] Triglycerides measurementOrd ered By: Tyron Knight on 11-01-2024 Triglyceride [Mass/Vol] 61 mg/dL <199 [facility] Comment on above: The drugs N-Acetylcy steine and Metamizole may falsely depress this assay. Normal range: <150 mg/dLBorderline High: 150-199 mg/dLHigh: 200-499 mg/dLVery High: >500 mg/dL Vitamin D,25 Hydroxyon 11-01 Vitamin D 25-OH 45.7 ng/mL Normal 30-[address] [facility] Comment on above: Order Comment: Order Date: 10/28/24 Order Info: [id number] - CMP Order Date: 06/30/24 Order Info: [id number] - LIPID Order Info: [id number] - TSH Order Info: [id number] - FE Order Info: [id number] - SAMPSON Order Info: 3024-7 - T4F Result Comment: Diana min D Status Deficiency: <20 ng/mL (50nmol/L) Insufficiency: 20-30 ng/mL (50-75 nmol/L) Sufficiency: 30-100 ng/mL (75-250 nmol/L) Toxicity: >100 ng/mL (>250 nmol/L) Performed By: #### L 506.1001 #### [facility] [address] [place], [place], [id number] White blood cell (WBC) count Ordered By: Usman Mares on 11-01-2024 WBC (Bld) [#/Vol] 3.9 10*3/uL Low 4.4-11.0 [facility] Ferritinon 06-09-2024 Ferritin [Mass/Vol] 168 ng/mL Normal 8-252 [facility] Comment on above: Order Comment: Order Date: 12/30/23 Order Info: [id number] - CMP Order Info: 3013 - TSH Order Info: 3023-10 T4F PLEASE ADD FERRITIN, IRON AND IRON BINDING TO BLOOD DONE ON 06/08/24 Performed By: #### L 503.6075, L503.6550, L501.9985, L503.6150 #### [facility] [address] [place], [address] Hemoglobin A1con 06-09-2024 HbA1c (Bld) [Mass fraction] 5.4 % Normal 3.8-5.[address] [facility] Comment on above: Order Comment: PLEAS E AD TO BLOOD DONE ON 06/08/24 Result Comment: Norm al < 5.7 % Prediabetic 5.7 - 6.4 % Diabetic >or= 6.5 % Please note range changes. Performed By: #### L 503.6075, L503.6550, L501.9985, L503.6150 #### [facility] [address] [place], [address] Ironon 06-09-2024 Iron [Mass/Vol] 118 ug/dL Normal 50-[address] [facility] Comment on above: Order Comment: Order Date: 12/30/23 Order Info: [id number] - CMP Order Info: 3016-3 - TSH Order Info: 3023-10 T4F PLEASE ADD FERRITIN, IRON AND IRON BINDING TO BLOOD DONE ON 06/08/24 Performed By: #### L 503.6075, L503.6550, L501.9985, L503.6150 #### [facility] [address] [place], [address] Iron Binding Capacity,Totalo n 06-09-2024 TIBC 394 ug/dL Normal 250-[address] [facility] Comment on above: Order Comment: Order Date: 12/30/23 Order Info: [id number] - CMP Order Info: 3016-3 - TSH Order Info: 3024-7 - T4F PLEASE ADD FERRITIN, IRON AND IRON BINDING TO BLOOD DONE ON 06/08/24 Performed By: #### L 503.6075, L503.6550, L501.9985, L503.6150 #### [facility] [address] [place], [address] CBC W/Diff, Automatedon 05-29 Absolute Lymph 1.53 X10 3/uL Normal 0.83-4.[address] [facility] Comment on above: Order Comment: Order Date: 12/30/23 Order Info: 0184-1 - CBCD Performed By: #### L 506.0400, L501.9520, L506.1000, L500.4050, L100.0100 #### [facility] [address] [place], [address] Absolute Neut 2.6 X10 3/uL Normal 2.0-7.[address] [facility] Comment on above: Order Comment: Order Date: 12/30/23 Order Info: 0184-1 - CBCD Performed By: #### L 506.0400, L501.9520, L506.1000, L500.4050, L100.0100 #### [facility] [address] [place], [address] Basophils/100 WBC (Bld) 1.6 % High 0-1 [facility] Comment on above: Order Comment: Order Date: 12/30/23 Order Info: 0184-1 - CBCD Performed By: #### L 506.0400, L501.9520, L506.1000, L500.4050, L100.0100 #### [facility] [address] [place], [address] Eosinophils/100 WBC (Bld) 3.4 % Normal 0-[address] [facility] Comment on above: Order Comment: Order Date: 12/30/23 Order Info: 0184-1 - CBCD Performed By: #### L 506.0400, L501.9520, L506.1000, L500.4050, L100.0100 #### [facility] [address] [place], [address] Erythrocyte distribution width (RBC) [Ratio] 12.3 % Normal 11.6-14.[address] [facility] Comment on above: Order Comment: Order Date: 12/30/23 Order Info: 0184- - CBCD Performed By: #### L 506.0400, L501.9520, L506.1000, L500.4050, L100.0100 #### [facility] [address] [place], [address] Hematocrit (Bld) [Volume fraction] 45.2 % Normal 37-[address] [facility] Comment on above: Order Comment: Order Date: 12/30/23 Order Info: 0184- - CBCD Performed By: #### L 506.0400, L501.9520, L506.1000, L500.4050, L100.0100 #### [facility] [address] [place], [address] Hemoglobin (Bld) [Mass/Vol] 15.6 g/dL High 12.0-15.[address] [facility] Comment on above: Order Comment: Order Date: 12/30/23 Order Info: 0184-1 - CBCD Performed By: #### L 506.0400, L501.9520, L506.1000, L500.4050, L100.0100 #### [facility] [address] [place], [address] IG% 0.200 Normal 0.0-0.[address] [facility] Comment on above: Order Comment: Order Date: 12/30/23 Order Info: 0184-1 - CBCD Result Comment: IG% - Immature Granulocytes (promyelocytes, myelocytes and metamyelocytes) > 1% indicates that a LEFT SHIFT is Present. Performed By: #### L 506.0400, L501.9520, L506.1000, L500.4050, L100.0100 #### [facility] [address] [place], [address] Lymphocytes/100 WBC (Bld) 30.6 % Normal 19-[address] [facility] Comment on above: Order Comment: Order Date: 12/30/23 Order Info: 0184-1 - CBCD Performed By: #### L 506.0400, L501.9520, L506.1000, L500.4050, L100.0100 #### [facility] [address] [place], [address] MCH (RBC) [Entitic mass] 30.2 pg Normal 27.0-32.[address] [facility] Comment on above: Order Comment: Order Date: 12/30/23 Order Info: 0184-1 - CBCD Performed By: #### L 506.0400, L501.9520, L506.1000, L500.4050, L100.0100 #### [facility] [address] [place], [address] MCHC (RBC) [Mass/Vol] 34.5 g/dL Normal 32-36 [facility] Comment on above: Order Comment: Order Date: 12/30/23 Order Info: 0184-1 - CBCD Performed By: #### L 506.0400, L501.9520, L506.1000, L500.4050, L100.0100 #### [facility] [address] [place], [address] MCV (RBC) [Entitic vol] 87.6 fL Normal 81-99 [facility] Comment on above: Order Comment: Order Date: 12/30/23 Order Info: 0184-1 - CBCD Performed By: #### L 506.0400, L501.9520, L506.1000, L500.4050, L100.0100 #### [facility] [address] [place], [address] Monocytes/100 WBC (Bld) 12.8 % High 0-10 [facility] Comment on above: Order Comment: Order Date: 12/30/23 Order Info: 0184-1 - CBCD Performed By: #### L 506.0400, L501.9520, L506.1000, L500.4050, L100.0100 #### [facility] [address] [place], [address] Neutrophils/100 WBC (Bld) 51.4 % Normal 47-[address] [facility] Comment on above: Order Comment: Order Date: 12/30/23 Order Info: 0184- - CBCD Performed By: #### L 506.0400, L501.9520, L506.1000, L500.4050, L100.0100 #### [facility] [address] [place], [address] Nucleated RBC (Bld) [#/Vol] 0 10*3/uL Normal 0-[address] [facility] Comment on above: Order Comment: Order Date: 12/30/23 Order Info: 0184- - CBCD Performed By: #### L 506.0400, L501.9520, L506.1000, L500.4050, L100.0100 #### [facility] [address] [place], [address] Platelet mean volume (Bld) [Entitic vol] 9.7 fL Normal 6.2-12.[address] [facility] Comment on above: Order Comment: Order Date: 12/30/23 Order Info: 0184-1 - CBCD Performed By: #### L 506.0400, L501.9520, L506.1000, L500.4050, L100.0100 #### [facility] [address] [place], [address] Platelets (Bld) [#/Vol] 275 10*3/uL Normal 150-[address] [facility] Comment on above: Order Comment: Order Date: 12/30/23 Order Info: 0184-1 - CBCD Performed By: #### L 506.0400, L501.9520, L506.1000, L500.4050, L100.0100 #### [facility] [address] [place], [address] RBC (Bld) [#/Vol] 5.16 10*6/uL Normal 4.2-5.4 [facility] Comment on above: Order Comment: Order Date: 12/30/23 Order Info: 0184-1 - CBCD Performed By: #### L 506.0400, L501.9520, L506.1000, L500.4050, L100.0100 #### [facility] [address] [place], [address] RDW SD 39.6 fl Normal 35.1-43.[address] [facility] Comment on above: Order Comment: Order Date: 12/30/23 Order Info: 0184-1 - CBCD Performed By: #### L 506.0400, L501.9520, L506.1000, L500.4050, L100.0100 #### [facility] [address] [place], [address] WBC (Bld) [#/Vol] 5.0 10*3/uL Normal 4.4-11.0 [facility] Comment on above: Order Comment: Order Date: 12/30/23 Order Info: 0184-1 - CBCD Performed By: #### L 506.0400, L501.9520, L506.1000, L500.4050, L100.0100 #### [facility] [address] [place], [address] Comprehensive Metabolic Prof ilon 06-08-2024 Albumin [Mass/Vol] 3.5 g/dL Normal 3.2-5.0 [facility] Comment on above: Order Comment: Order Date: 12/30/23 Order Info: 0786-1 - CMP Order Info: 3015-3 - TSH Order Info: 3023-7 - T4F Performed By: #### L 506.0400, L501.9520, L506.1000, L500.4050, L100.0100 #### [facility] [address] [place], [address] Albumin/Globulin [Mass ratio] 0.9 {ratio} Normal 0.9-2.[address] [facility] Comment on above: Order Comment: Order Date: 12/30/23 Order Info: 0786-1 - CMP Order Info: 3 - TSH Order Info: 7 - T4F Performed By: #### L 506.0400, L501.9520, L506.1000, L500.4050, L100.0100 #### [facility] [address] [place], [address] ALK P 142 U/L High 45-[address] [facility] Comment on above: Order Comment: Order Date: 12/30/23 Order Info: 0786-1 - CMP Order Info: 3 - TSH Order Info: 7 - T4F Performed By: #### L 506.0400, L501.9520, L506.1000, L500.4050, L100.0100 #### [facility] [address] [place], [address] ALT [Catalytic activity/Vol] 45 U/L Normal 13-[address] [facility] Comment on above: Order Comment: Order Date: 12/30/23 Order Info: 0786-1 - CMP Order Info: 3 - TSH Order Info: 3023-7 - T4F Performed By: #### L 506.0400, L501.9520, L506.1000, L500.4050, L100.0100 #### [facility] [address] [place], [address] AST [Catalytic activity/Vol] 33 U/L Normal 15-[address] [facility] Comment on above: Order Comment: Order Date: 12/30/23 Order Info: 0786-1 - CMP Order Info: 3015-3 - TSH Order Info: 3024-7 - T4F Performed By: #### L 506.0400, L501.9520, L506.1000, L500.4050, L100.0100 #### [facility] [address] [place], [address] Bilirubin [Mass/Vol] 0.60 mg/dL Normal 0.20-1.00 [facility] Comment on above: Order Comment: Order Date: 12/30/23 Order Info: 785-1 - CMP Order Info: 3 - TSH Order Info: 3024-7 - T4F Result Comment: For patients on eltrombopag therapy, use of Dimension [place] TBIL is not recommended. Performed By: #### L 506.0400, L501.9520, L506.1000, L500.4050, L100.0100 #### [facility] [address] [place], [address] BUN/CRE 21.5 RATIO High 10-[address] [facility] Comment on above: Order Comment: Order Date: 12/30/23 Order Info: 0786-1 - CMP Order Info: 3016-3 - TSH Order Info: 3024-7 - T4F Performed By: #### L 506.0400, L501.9520, L506.1000, L500.4050, L100.0100 #### [facility] [address] [place], [address] CA,Total 9.2 mg/dL Normal 8.5-10.[address] [facility] Comment on above: Order Comment: Order Date: 12/30/23 Order Info: 0786-1 - CMP Order Info: 3016-3 - TSH Order Info: 3024-7 - T4F Performed By: #### L 506.0400, L501.9520, L506.1000, L500.4050, L100.0100 #### [facility] [address] [place], [address] Chloride [Moles/Vol] 107 mmol/L Normal 98-107 [facility] Comment on above: Order Comment: Order Date: 12/30/23 Order Info: 785-1 - CMP Order Info: 3 - TSH Order Info: 7 - T4F Performed By: #### L 506.0400, L501.9520, L506.1000, L500.4050, L100.0100 #### [facility] [address] [place], [address] CO2 [Moles/Vol] 27.0 mmol/L Normal 21.0-32.[address] [facility] Comment on above: Order Comment: Order Date: 12/30/23 Order Info: 785-04 - CMP Order Info: 3015-06 - TSH Order Info: 3023-10 - T4F Performed By: #### L 506.0400, L501.9520, L506.1000, L500.4050, L100.0100 #### [facility] [address] [place], [address] Creatinine [Mass/Vol] 0.79 mg/dL Normal 0.55-1.02 [facility] Comment on above: Order Comment: Order Date: 12/30/23 Order Info: 785-04 - CMP Order Info: 3015-06 - TSH Order Info: 7 - T4F Result Comment: The validity of the calculated GFR GFRAA in patients over 70 years has not been determined. Clinical correlation is essential. Performed By: #### L 506.0400, L501.9520, L506.1000, L500.4050, L100.0100 #### [facility] [address] [place], [address] EST GFR - AA 92 mL/min Normal >[address] [facility] Comment on above: Order Comment: Order Date: 12/30/23 Order Info: 785-1 - CMP Order Info: 3015-06 - TSH Order Info: 3024-7 - T4F Result Comment: Afri can [place] GFR Calc Performed By: #### L 506.0400, L501.9520, L506.1000, L500.4050, L100.0100 #### [facility] [address] [place], [address] GAP 5 Normal 5-[address] [facility] Comment on above: Order Comment: Order Date: 12/30/23 Order Info: 07-1 - CMP Order Info: 3015-06 - TSH Order Info: 3023-10 - T4F Performed By: #### L 506.0400, L501.9520, L506.1000, L500.4050, L100.0100 #### [facility] [address] [place], [address] GFR/1.73 sq M.predicted among non-blacks MDRD (S/P/Bld) [Vol rate/Area] 76 mL/min/{1.73_m2} Normal >[address] [facility] Comment on above: Order Comment: Order Date: 12/30/23 Order Info: 07 - CMP Order Info: 3015-06 - TSH Order Info: 3023-10 - T4F Result Comment: Non- GFR Calc Performed By: #### L 506.0400, L501.9520, L506.1000, L500.4050, L100.0100 #### [facility] [address] [place], [address] Globulin (S) [Mass/Vol] 4.0 g/dL Normal 2.2-4.2 [facility] Comment on above: Order Comment: Order Date: 12/30/23 Order Info: 07-1 - CMP Order Info: 3015-06 - TSH Order Info: 7 - T4F Performed By: #### L 506.0400, L501.9520, L506.1000, L500.4050, L100.0100 #### [facility] [address] [place], [address] Glucose [Mass/Vol] 102 mg/dL Normal 74-106 [facility] Comment on above: Order Comment: Order Date: 12/30/23 Order Info: 0786-1 - CMP Order Info: 3015-3 - TSH Order Info: 302-7 - T4F Result Comment: Fast ing Glucose result from 100 to 125 mg/dL suggests IMPAIRED HOMEOSTASIS per A.D.A. criteria. Performed By: #### L 506.0400, L501.9520, L506.1000, L500.4050, L100.0100 #### [facility] [address] [place], [address] Potassium [Moles/Vol] 4.2 mmol/L Normal 3.5-5.1 [facility] Comment on above: Order Comment: Order Date: 12/30/23 Order Info: 07-1 - CMP Order Info: 3 - TSH Order Info: 3027 - T4F Performed By: #### L 506.0400, L501.9520, L506.1000, L500.4050, L100.0100 #### [facility] [address] [place], [address] Sodium [Moles/Vol] 138 mmol/L Normal 136-145 [facility] Comment on above: Order Comment: Order Date: 12/30/23 Order Info: 0786-1 - CMP Order Info: 3 - TSH Order Info: 302-7 - T4F Performed By: #### L 506.0400, L501.9520, L506.1000, L500.4050, L100.0100 #### [facility] [address] [place], [address] T PROT 7.5 g/dL Normal 6.4-8.[address] [facility] Comment on above: Order Comment: Order Date: 12/30/23 Order Info: 0786-1 - CMP Order Info: 3 - TSH Order Info: 3024-7 - T4F Performed By: #### L 506.0400, L501.9520, L506.1000, L500.4050, L100.0100 #### [facility] [address] [place], [address] Urea nitrogen [Mass/Vol] 17 mg/dL Normal 7-[address] [facility] Comment on above: Order Comment: Order Date: 12/30/23 Order Info: 0786-1 - CMP Order Info: 3016-3 - TSH Order Info: 3024-7 - T4F Performed By: #### L 506.0400, L501.9520, L506.1000, L500.4050, L100.0100 #### [facility] [address] [place], [address] T4 Free Directon 06-08-2024 T4 FREE DIRECT 0.87 ng/dL Normal 0.76-1.[address] [facility] Comment on above: Order Comment: Order Date: 12/30/23Order Info: 0786-1 - CMPOrder Info: 3016-3 - TSHOrder Info: 3024-7 - T4F Performed By: #### L 506.0400, L501.9520, L506.1000, L500.4050, L100.0100 ####[facility] [address] [place], [address] Thyroid Stim Hormone (TSH)on 06-08-2024 TSH 0.103 uIU/mL Low 0.358-3.[address] [facility] Comment on above: Order Comment: Order Date: 12/30/23Order Info: 0786-1 - CMPOrder Info: 3016-3 - TSHOrder Info: 3024-7 - T4F Performed By: #### L 506.0400, L501.9520, L506.1000, L500.4050, L100.0100 ####[facility] [address] [place], [address] Vitamin D,25 Hydroxyon 06-08 Vitamin D 25-OH 69.6 ng/mL Normal [facility] Comment on above: Order Comment: Order Date: 12/30/23Order Info: [id number] - VITD25 Result Comment: Diana min D 25(OH) Status Range Deficiency <20 ng/mL (50nmol/L) Insufficiency 20 - 30 ng/mL (50 - 75 nmol/L) Sufficiency 30 - 100 ng/mL (75 - 250 nmol/L) Toxicity >100 ng/mL (>250 nmol/L) Performed By: #### L 506.0400, L501.9520, L506.1000, L500.4050, L100.0100 ####[facility] [address] [place], [address] Gastroenterology Visit Repor ton 06-07-2024 Gastroenterology Visit Report [facility] [address] [place] [address] OFFICE VISIT Date of Service: 06/07/24 MR#: [id number] Acct: [id number] Name: RACHEL MAY Rep #: [id number] : 1950 Provider: Dr. Usman kaplan MD Age/Sex: 73/F Location: [facility] [place] [facility] Status: Signed Intake Vital Signs 12/12/23 07:52 [...] Initially noted when she first saw her family law paralegal, Dr. Calloway; then established with [facility] for osteoarthritis who did not feel [...] tooth pu (more content not included)... Normal [facility] Orthopedic Visit Reporton Orthopedic Visit Report [facility] [address] [place] [address] OFFICE VISIT Date of Service: 06/03/24 MR#: [id number] Acct: [id number] Name: RACHEL MAY Rep #: [id number] 9 : 1950 Provider: Dr. Siva Louise MD Age/Sex: 73/F Location: [facility] [place] [facility] Status: Signed Intake Vital Signs 12/12/23 07:52 [...] by me, Dr. Siva Louise MD 06/03/24 0793. Part of today???s visit was documented by [...] any since. She did have xrays with [facility] about a month ago but denies [...] x-ray imaging from outside source. X-rays from [facility] were available which show L4- 5 grade [...] referral sen (more content not included)... Normal [facility] Absolute lymphocyte countOrd ered By: Tyron Fernandezjoe on 05-01-2023 Lymphocytes Auto (Unsp spec) [#/Vol] 1.16 10*3/uL 0.83-4.[address] [facility] Basophil percentageOrdered B y: Tyron Fernandezjoe on 05-01-2023 Basophils/100 WBC (Bld) 1.3 % 0-1 [facility] Bilirubin [Mass/Vol] 0.50 mg/dL 0.20-1.00 [facility] Comment on above: For patients on eltr ombopag therapy, use of Dimension [place] TBIL is not recommended. Chloride [Moles/Vol] 108 mmol/L 98-107 [facility] Cholesterol [Mass/Vol] 188 mg/dL <200 [facility] Comment on above: <200 mg/dL Desirable 200-240 mg/dL Borderline >240 mg/dL High Risk Eosinophils/100 WBC (Bld) 2.8 % 0-[address] [facility] Glucose [Mass/Vol] 101 mg/dL 74-106 [facility] Comment on above: Fasting Glucose resu lt from 100 to 125 mg/dL suggests IMPAIRED HOMEOSTASIS per A.D.A. criteria. Neutrophils (Bld) [#/Vol] 2.7 10*3/uL 2.0-7.[address] [facility] Neutrophils/100 WBC (Bld) 58.2 % 47-[address] [facility] Potassium [Moles/Vol] 4.1 mmol/L 3.5-5.1 [facility] Protein [Mass/Vol] 7.1 g/dL 6.4-8.2 [facility] Sodium [Moles/Vol] 140 mmol/L 136-145 [facility] Triglyceride [Mass/Vol] 102 mg/dL <199 [facility] Comment on above: The drugs N-Acetylcy steine and Metamizole may falsely depress this assay.Serum Triglycerides Reference Interval Normal <150 mg/dL Borderline high 150 - 199 mg/dL High 200 - 499 mg/dL Very High > or = 500 mg/dL WBC (Bld) [#/Vol] 4.6 10*3/uL 4.4-11.0 [facility] Blood erythrocytes count (nu mber/volume)Ordered By: Tyron Knight on 05-01-2023 RBC (Bld) [#/Vol] 5.24 10*6/uL 4.2-5.4 [facility] Blood hemoglobin measurement (mass/volume)Ordered By: Tyron Knight on 05-01-2023 Hemoglobin (Bld) [Mass/Vol] 15.5 g/dL 12.0-15.[address] [facility] Blood lymphocytes/100 leukoc ytesOrdered By: Tyron Knight on 05-01-2023 Lymphocytes/100 WBC (Bld) 25.0 % 19-[address] [facility] Blood monocytes/100 leukocyt esOrdered By: Tyron Knight on 05-01-2023 Monocytes/100 WBC (Bld) 12.5 % 0-10 [facility] Blood platelet mean volumeOr dered By: Tyron Knight on 05-01-2023 Platelet mean volume (Bld) [Entitic vol] 10.4 fL 6.2-12.[address] [facility] Determination of erythrocyte mean corpuscular volume (MCV)Ordered By: Tyron Knight on 05-01-2023 MCV (RBC) [Entitic vol] 90.6 fL 81-99 [facility] Hematocrit Auto (Bld) [Volum e fraction]Ordered By: Tyron Knight on 05-01-2023 Hematocrit (Bld) [Volume fraction] 47.5 % 37-[address] [facility] - Chemistry and C hemistry - challengeOrdered By: Tyron Knight on 05-01-2023 ALP [Catalytic activity/Vol] 126 U/L 45-[address] [facility] ALT [Catalytic activity/Vol] 88 U/L 13-[address] [facility] CO2 [Moles/Vol] 28.0 mmol/L 21.0-32.[address] [facility] Free T4 [Mass/Vol] 0.94 ng/dL 0.76-1.46 [facility] Globulin (S) [Mass/Vol] 3.8 g/dL 2.2-4.2 [facility] Urea nitrogen/Creatinine [Mass ratio] 19.6 mg/mg 10-[address] [facility] - Hematology and Cell countsOrdered By: Tyron Knight on 05-01-2023 Erythrocyte distribution width (RBC) [Entitic vol] 42.4 fL 35.1-43.[address] [facility] Erythrocyte distribution width (RBC) [Ratio] 12.8 % 11.6-14.[address] [facility] Immature granulocytes/100 WBC (Bld) 0.200 % 0.0-0.[address] [facility] Comment on above: IG% - Immature Granu locytes (promyelocytes, myelocytes and metamyelocytes) > 1% indicates that a LEFT SHIFT is Present. MCH (RBC) [Entitic mass] 29.6 pg 27.0-32.[address] [facility] Nucleated RBC/100 WBC (Bld) [Ratio] 0 % 0-[address] [facility] MCHC Auto (RBC) [Mass/Vol]Or dered By: Tyron Knight on 05-01-2023 MCHC (RBC) [Mass/Vol] 32.6 g/dL 32-36 [facility] No Panel InformationOrdered By: Tyron Knight on 05-01-2023 Estimated GFR (MDRD) Amer 89 mL/min >[address] [facility] Comment on above: GFR Calc Estimated GFR (MDRD) Non-Af Amer 74 mL/min >[address] [facility] Comment on above: Non- GFR Calc Thyroid Stimulating Hormone (TSH) 1.12 uIU/mL 0.358-3.[address] [facility] Vitamin D 25-Hydroxy 39.2 ng/mL [facility] Comment on above: Vitamin D 25(OH) Sta tus Range Deficiency <20 ng/mL (50nmol/L) Insufficiency 20 - 30 ng/mL (50 - 75 nmol/L) Sufficiency 30 - 100 ng/mL (75 - 250 nmol/L) Toxicity >100 ng/mL (>250 nmol/L) Platelets bldOrdered By: José Miguel Knight on 05-01-2023 Platelets (Bld) [#/Vol] 272 10*3/uL 150-[address] [facility] Serum or plasma albumin negra urement (mass/volume)Ordered By: Tyron Knight on 05-01-2023 Albumin [Mass/Vol] 3.3 g/dL 3.2-5.0 [facility] Serum or plasma albumin/glob ulin mass ratioOrdered By: Tyron Knight on 05-01-2023 Albumin/Globulin [Mass ratio] 0.9 {ratio} 0.9-2.[address] [facility] Serum or plasma calcium negra urement (mass/volume)Ordered By: Tyron Knight on 05-01-2023 Calcium [Mass/Vol] 8.6 mg/dL 8.5-10.1 [facility] Serum or plasma cholesterol in HDL measurement (mass/volume)Ordered By: Tyron Knight on 05-01-2023 Cholesterol in HDL [Mass/Vol] 56 mg/dL >[address] [facility] Comment on above: The drugs N-Acetylcy steine and Metamizole may falsely depress this assay. Reference Range HDL <40 mg/dL Low HDL Cholesterol HDL >or= 60 mg/dL High HDL Cholesterol Serum or plasma cholesterol in VLDL measurement (mass/volume)Ordered By: Tyron Knight on 05-01-2023 Cholesterol in VLDL [Mass/Vol] 20 mg/dL 5-[address] [facility] Serum or plasma creatinine m easurement (mass/volume)Ordered By: Tyron Knight on 05-01-2023 Creatinine [Mass/Vol] 0.82 mg/dL 0.55-1.02 [facility] Comment on above: The validity of the calculated GFR & GFRAA in patients over 70 years has not been determined. Clinical correlation is essential. Serum or plasma low density lipoprotein (LDL) cholesterol measurement (mass/volume)Ordered By: Tyron Knight on 05-01-2023 Cholesterol in LDL [Mass/Vol] 112 mg/dL 0-[address] [facility] Serum or plasma urea nitroge n measurement (mass/volume)Ordered By: Tyron Knight on 05-01-2023 Urea nitrogen [Mass/Vol] 16 mg/dL 7-[address] [facility] Thin prep Papanicolaou smear with manual screeningOrdered By: Tyron Knight on 05-01-2023 Thin prep Papanicolaou smear with manual screening 62 U/L 15-[address] [facility] Thin prep Papanicolaou smear with manual screening 4 5-[address] [facility] Absolute lymphocyte countOrd ered By: Tyron Knight on 11-07-2022 Lymphocytes Auto (Unsp spec) [#/Vol] 1.47 10*3/uL 0.83-4.[address] [facility] Basophil percentageOrdered B y: Tyron Knight on 11-07-2022 Basophils/100 WBC (Bld) 1.3 % 0-1 [facility] Bilirubin [Mass/Vol] 0.50 mg/dL 0.20-1.00 [facility] Comment on above: For patients on eltr ombopag therapy, use of Dimension [place] TBIL is not recommended. Chloride [Moles/Vol] 106 mmol/L 98-107 [facility] Cholesterol [Mass/Vol] 165 mg/dL <200 [facility] Comment on above: <200 mg/dL Desirable 200-240 mg/dL Borderline >240 mg/dL High Risk Eosinophils/100 WBC (Bld) 4.3 % 0-[address] [facility] Glucose [Mass/Vol] 92 mg/dL 74-106 [facility] Neutrophils (Bld) [#/Vol] 2.9 10*3/uL 2.0-7.[address] [facility] Neutrophils/100 WBC (Bld) 55.6 % 47-[address] [facility] Potassium [Moles/Vol] 3.8 mmol/L 3.5-5.1 [facility] Protein [Mass/Vol] 7.2 g/dL 6.4-8.2 [facility] Sodium [Moles/Vol] 140 mmol/L 136-145 [facility] Triglyceride [Mass/Vol] 85 mg/dL <199 [facility] Comment on above: The drugs N-Acetylcy steine and Metamizole may falsely depress this assay.Serum Triglycerides Reference Interval Normal <150 mg/dL Borderline high 150 - 199 mg/dL High 200 - 499 mg/dL Very High > or = 500 mg/dL WBC (Bld) [#/Vol] 5.3 10*3/uL 4.4-11.0 [facility] Blood erythrocytes count (nu mber/volume)Ordered By: Tyron Knight on 11-07-2022 RBC (Bld) [#/Vol] 5.08 10*6/uL 4.2-5.4 [facility] Blood hemoglobin measurement (mass/volume)Ordered By: Tyron Knight on 11-07-2022 Hemoglobin (Bld) [Mass/Vol] 15.2 g/dL 12.0-15.[address] [facility] Blood lymphocytes/100 leukoc ytesOrdered By: Tyron Knight on 11-07-2022 Lymphocytes/100 WBC (Bld) 27.8 % 19-[address] [facility] Blood monocytes/100 leukocyt esOrdered By: Tyron Knight on 11-07-2022 Monocytes/100 WBC (Bld) 10.8 % 0-10 [facility] Blood platelet mean volumeOr dered By: Tyron Knight on 11-07-2022 Platelet mean volume (Bld) [Entitic vol] 10.4 fL 6.2-12.[address] [facility] Determination of erythrocyte mean corpuscular volume (MCV)Ordered By: Tyron Knight on 11-07-2022 MCV (RBC) [Entitic vol] 91.5 fL 81-99 [facility] Hematocrit Auto (Bld) [Volum e fraction]Ordered By: Tyron Knight on 11-07-2022 Hematocrit (Bld) [Volume fraction] 46.5 % 37-[address] [facility] - Chemistry and C hemistry - challengeOrdered By: Tyron Knight on 11-07-2022 ALP [Catalytic activity/Vol] 115 U/L 45-[address] [facility] ALT [Catalytic activity/Vol] 29 U/L 13-[address] [facility] CO2 [Moles/Vol] 29.0 mmol/L 21.0-32.[address] [facility] Free T4 [Mass/Vol] 1.31 ng/dL 0.76-1.46 [facility] Globulin (S) [Mass/Vol] 3.8 g/dL 2.2-4.2 [facility] Urea nitrogen/Creatinine [Mass ratio] 17.2 mg/mg 10-[address] [facility] - Hematology and Cell countsOrdered By: Tyron Knight on 11-07-2022 Erythrocyte distribution width (RBC) [Entitic vol] 41.8 fL 35.1-43.[address] [facility] Erythrocyte distribution width (RBC) [Ratio] 12.5 % 11.6-14.[address] [facility] Immature granulocytes/100 WBC (Bld) 0.200 % 0.0-0.[address] [facility] Comment on above: IG% - Immature Granu locytes (promyelocytes, myelocytes and metamyelocytes) > 1% indicates that a LEFT SHIFT is Present. MCH (RBC) [Entitic mass] 29.9 pg 27.0-32.[address] [facility] Nucleated RBC/100 WBC (Bld) [Ratio] 0 % 0-[address] [facility] MCHC Auto (RBC) [Mass/Vol]Or dered By: Tyron Knight on 11-07-2022 MCHC (RBC) [Mass/Vol] 32.7 g/dL 32-36 [facility] No Panel InformationOrdered By: Tyron Knight on 11-07-2022 Estimated GFR (MDRD) Amer 89 mL/min >[address] [facility] Comment on above: GFR Calc Estimated GFR (MDRD) Non-Af Amer 74 mL/min >[address] [facility] Comment on above: Non- GFR Calc Thyroid Stimulating Hormone (TSH) 0.32 uIU/mL 0.358-3.[address] [facility] Vitamin D 25-Hydroxy 51.1 ng/mL [facility] Comment on above: Vitamin D 25(OH) Sta tus Range Deficiency <20 ng/mL (50nmol/L) Insufficiency 20 - 30 ng/mL (50 - 75 nmol/L) Sufficiency 30 - 100 ng/mL (75 - 250 nmol/L) Toxicity >100 ng/mL (>250 nmol/L) Platelets bldOrdered By: José Miguel Knight on 11-07-2022 Platelets (Bld) [#/Vol] 260 10*3/uL 150-[address] [facility] Serum or plasma albumin negra urement (mass/volume)Ordered By: Tyron Knight on 11-07-2022 Albumin [Mass/Vol] 3.4 g/dL 3.2-5.0 [facility] Serum or plasma albumin/glob ulin mass ratioOrdered By: Tyron Knight on 11-07-2022 Albumin/Globulin [Mass ratio] 0.9 {ratio} 0.9-2.[address] [facility] Serum or plasma calcium negra urement (mass/volume)Ordered By: Tyron Knight on 11-07-2022 Calcium [Mass/Vol] 8.7 mg/dL 8.5-10.1 [facility] Serum or plasma cholesterol in HDL measurement (mass/volume)Ordered By: Tyron Knight on 11-07-2022 Cholesterol in HDL [Mass/Vol] 53 mg/dL >[address] [facility] Comment on above: The drugs N-Acetylcy steine and Metamizole may falsely depress this assay. Reference Range HDL <40 mg/dL Low HDL Cholesterol HDL >or= 60 mg/dL High HDL Cholesterol Serum or plasma cholesterol in VLDL measurement (mass/volume)Ordered By: Tyron Knight on 11-07-2022 Cholesterol in VLDL [Mass/Vol] 17 mg/dL 5-[address] [facility] Serum or plasma creatinine m easurement (mass/volume)Ordered By: Tyron Knight on 11-07-2022 Creatinine [Mass/Vol] 0.81 mg/dL 0.55-1.02 [facility] Comment on above: The validity of the calculated GFR & GFRAA in patients over 70 years has not been determined. Clinical correlation is essential. Serum or plasma low density lipoprotein (LDL) cholesterol measurement (mass/volume)Ordered By: Tyron Knight on 11-07-2022 Cholesterol in LDL [Mass/Vol] 95 mg/dL 0-[address] [facility] Serum or plasma urea nitroge n measurement (mass/volume)Ordered By: Tyron Knight on 11-07-2022 Urea nitrogen [Mass/Vol] 14 mg/dL 7-[address] [facility] Thin prep Papanicolaou smear with manual screeningOrdered By: Tyron Knight on 11-07-2022 Thin prep Papanicolaou smear with manual screening 23 U/L 15-[address] [facility] Thin prep Papanicolaou smear with manual screening 5 5-[address] [facility] Absolute lymphocyte countOrd ered By: Dr. Knight on 05-10-2022 Lymphocytes Auto (Unsp spec) [#/Vol] 1.24 10*3/uL 0.83-4.[address] [facility] Basophil percentageOrdered B y: Dr. Knight on 05-10-2022 Basophils/100 WBC (Bld) 1.0 % 0-1 [facility] Bilirubin [Mass/Vol] 0.50 mg/dL 0.20-1.00 [facility] Comment on above: For patients on eltr ombopag therapy, use of Dimension [place] TBIL is not recommended. Chloride [Moles/Vol] 103 mmol/L 98-107 [facility] Eosinophils/100 WBC (Bld) 2.3 % 0-[address] [facility] Glucose [Mass/Vol] 90 mg/dL 74-106 [facility] Neutrophils (Bld) [#/Vol] 3.1 10*3/uL 2.0-7.[address] [facility] Neutrophils/100 WBC (Bld) 58.1 % 47-[address] [facility] Potassium [Moles/Vol] 4.0 mmol/L 3.5-5.1 [facility] Protein [Mass/Vol] 7.3 g/dL 6.4-8.2 [facility] Sodium [Moles/Vol] 141 mmol/L 136-145 [facility] WBC (Bld) [#/Vol] 5.3 10*3/uL 4.4-11.0 [facility] Blood erythrocytes count (nu mber/volume)Ordered By: Dr. Knight on 05-10-2022 RBC (Bld) [#/Vol] 5.41 10*6/uL 4.2-5.4 [facility] Blood hemoglobin measurement (mass/volume)Ordered By: Dr. Knight on 05-10-2022 Hemoglobin (Bld) [Mass/Vol] 16.2 g/dL 12.0-15.[address] [facility] Blood lymphocytes/100 leukoc ytesOrdered By: Dr. Knight on 05-10-2022 Lymphocytes/100 WBC (Bld) 23.6 % 19-[address] [facility] Blood monocytes/100 leukocyt esOrdered By: Dr. Knight on 05-10-2022 Monocytes/100 WBC (Bld) 14.6 % 0-10 [facility] Blood platelet mean volumeOr dered By: Dr. Knight on 05-10-2022 Platelet mean volume (Bld) [Entitic vol] 10.1 fL 6.2-12.[address] [facility] Determination of erythrocyte mean corpuscular volume (MCV)Ordered By: Dr. Knight on 05-10-2022 MCV (RBC) [Entitic vol] 90.9 fL 81-99 [facility] Hematocrit Auto (Bld) [Volum e fraction]Ordered By: Dr. Knight on 05-10-2022 Hematocrit (Bld) [Volume fraction] 49.2 % 37-[address] [facility] - Chemistry and C hemistry - challengeOrdered By: Dr. Knight on 05-10-2022 ALP [Catalytic activity/Vol] 161 U/L 45-[address] [facility] ALT [Catalytic activity/Vol] 40 U/L 13-[address] [facility] CO2 [Moles/Vol] 29.0 mmol/L 21.0-32.[address] [facility] Free T4 [Mass/Vol] 1.05 ng/dL 0.76-1.46 [facility] Globulin (S) [Mass/Vol] 3.7 g/dL 2.2-4.2 [facility] Urea nitrogen/Creatinine [Mass ratio] 14.7 mg/mg 10-[address] [facility] - Hematology and Cell countsOrdered By: Dr. Knight on 05-10-2022 Erythrocyte distribution width (RBC) [Entitic vol] 42.0 fL 35.1-43.[address] [facility] Erythrocyte distribution width (RBC) [Ratio] 12.7 % 11.6-14.[address] [facility] Immature granulocytes/100 WBC (Bld) 0.400 % 0.0-0.[address] [facility] Comment on above: IG% - Immature Granu locytes (promyelocytes, myelocytes and metamyelocytes) > 1% indicates that a LEFT SHIFT is Present. MCH (RBC) [Entitic mass] 29.9 pg 27.0-32.[address] [facility] Nucleated RBC/100 WBC (Bld) [Ratio] 0 % 0-[address] [facility] MCHC Auto (RBC) [Mass/Vol]Or dered By: Dr. Knight on 05-10-2022 MCHC (RBC) [Mass/Vol] 32.9 g/dL 32-36 [facility] No Panel InformationOrdered By: Dr. Knight on 05-10-2022 Estimated GFR (MDRD) Amer 75 mL/min >[address] [facility] Comment on above: GFR Calc Estimated GFR (MDRD) Non-Af Amer 62 mL/min >[address] [facility] Comment on above: Non- GFR Calc Thyroid Stimulating Hormone (TSH) 1.47 uIU/mL 0.358-3.74 [facility] [facility] Vitamin D 25-Hydroxy 37.6 ng/mL [facility] Comment on above: Vitamin D 25(OH) Sta tus Range Deficiency <20 ng/mL (50nmol/L) Insufficiency 20 - 30 ng/mL (50 - 75 nmol/L) Sufficiency 30 - 100 ng/mL (75 - 250 nmol/L) Toxicity >100 ng/mL (>250 nmol/L) Platelets bldOrdered By: Dr. Knight on 05-10-2022 Platelets (Bld) [#/Vol] 316 10*3/uL 150-[address] [facility] Serum or plasma albumin negra urement (mass/volume)Ordered By: Dr. Knight on 05-10-2022 Albumin [Mass/Vol] 3.6 g/dL 3.2-5.0 [facility] Serum or plasma albumin/glob ulin mass ratioOrdered By: Dr. Knight on 05-10-2022 Albumin/Globulin [Mass ratio] 1.0 {ratio} 0.9-2.[address] [facility] Serum or plasma calcium negra urement (mass/volume)Ordered By: Dr. Knight on 05-10-2022 Calcium [Mass/Vol] 9.3 mg/dL 8.5-10.1 [facility] Serum or plasma creatinine m easurement (mass/volume)Ordered By: Dr. Knight on 05-10-2022 Creatinine [Mass/Vol] 0.95 mg/dL 0.55-1.02 [facility] Comment on above: The validity of the calculated GFR & GFRAA in patients over 70 years has not been determined. Clinical correlation is essential. Serum or plasma urea nitroge n measurement (mass/volume)Ordered By: Dr. Knight on 05-10-2022 Urea nitrogen [Mass/Vol] 14 mg/dL 7-[address] [facility] Thin prep Papanicolaou smear with manual screeningOrdered By: Dr. Knight on 05-10-2022 Thin prep Papanicolaou smear with manual screening 22 U/L 15-[address] [facility] Thin prep Papanicolaou smear with manual screening 9 5-[address] [facility] Absolute lymphocyte countOrd ered By: Dr. Knight on 01-29-2022 Lymphocytes Auto (Unsp spec) [#/Vol] 1.54 10*3/uL 0.83-4.[address] [facility] Basophil percentageOrdered B y: Dr. Knight on 01-29-2022 Basophils/100 WBC (Bld) 0.9 % 0-1 [facility] Bilirubin [Mass/Vol] 0.30 mg/dL 0.20-1.00 [facility] Comment on above: For patients on eltr ombopag therapy, use of Dimension [place] TBIL is not recommended. Chloride [Moles/Vol] 106 mmol/L 98-107 [facility] Cholesterol [Mass/Vol] 206 mg/dL <200 [facility] Comment on above: <200 mg/dL Desirable 200-240 mg/dL Borderline >240 mg/dL High Risk Eosinophils/100 WBC (Bld) 2.5 % 0-[address] [facility] Glucose [Mass/Vol] 93 mg/dL 74-106 [facility] Neutrophils (Bld) [#/Vol] 5.1 10*3/uL 2.0-7.[address] [facility] Neutrophils/100 WBC (Bld) 67.9 % 47-[address] [facility] Potassium [Moles/Vol] 4.0 mmol/L 3.5-5.1 [facility] Protein [Mass/Vol] 7.9 g/dL 6.4-8.2 [facility] Sodium [Moles/Vol] 140 mmol/L 136-145 [facility] Triglyceride [Mass/Vol] 83 mg/dL <199 [facility] Comment on above: The drugs N-Acetylcy steine and Metamizole may falsely depress this assay.Serum Triglycerides Reference Interval Normal <150 mg/dL Borderline high 150 - 199 mg/dL High 200 - 499 mg/dL Very High > or = 500 mg/dL WBC (Bld) [#/Vol] 7.5 10*3/uL 4.4-11.0 [facility] Blood erythrocytes count (nu mber/volume)Ordered By: Dr. Knight on 01-29-2022 RBC (Bld) [#/Vol] 5.34 10*6/uL 4.2-5.4 [facility] Blood hemoglobin measurement (mass/volume)Ordered By: Dr. Knight on 01-29-2022 Hemoglobin (Bld) [Mass/Vol] 16.3 g/dL 12.0-15.[address] [facility] Blood lymphocytes/100 leukoc ytesOrdered By: Dr. Knight on 01-29-2022 Lymphocytes/100 WBC (Bld) 20.5 % 19-[address] [facility] Blood monocytes/100 leukocyt esOrdered By: Dr. Knight on 01-29-2022 Monocytes/100 WBC (Bld) 7.9 % 0-10 [facility] Blood platelet mean volumeOr dered By: Dr. Knight on 01-29-2022 Platelet mean volume (Bld) [Entitic vol] 9.9 fL 6.2-12.[address] [facility] Determination of erythrocyte mean corpuscular volume (MCV)Ordered By: Dr. Knight on 01-29-2022 MCV (RBC) [Entitic vol] 90.4 fL 81-99 [facility] Hematocrit Auto (Bld) [Volum e fraction]Ordered By: Dr. Knight on 01-29-2022 Hematocrit (Bld) [Volume fraction] 48.3 % 37-[address] [facility] Laboratory - Chemistry and C hemistry - challengeOrdered By: Dr. Knight on 01-29-2022 ALP [Catalytic activity/Vol] 163 U/L 45-[address] [facility] ALT [Catalytic activity/Vol] 95 U/L 13-[address] [facility] CO2 [Moles/Vol] 28.0 mmol/L 21.0-32.[address] [facility] Free T4 [Mass/Vol] 0.77 ng/dL 0.76-1.46 [facility] Globulin (S) [Mass/Vol] 4.5 g/dL 2.2-4.2 [facility] Transferrin [Mass/Vol] 255 mg/dL 192-364 [facility] Comment on above: Performed at: - [address] [id number] Director: Varun Jo PhD, Phone: [phone] Urea nitrogen/Creatinine [Mass ratio] 18.0 mg/mg 10-[address] [facility] Laboratory - Hematology and Cell countsOrdered By: Dr. Knight on 01-29-2022 Erythrocyte distribution width (RBC) [Entitic vol] 43.3 fL 35.1-43.[address] [facility] Erythrocyte distribution width (RBC) [Ratio] 13.1 % 11.6-14.[address] [facility] Immature granulocytes/100 WBC (Bld) 0.300 % 0.0-0.[address] [facility] Comment on above: IG% - Immature Granu locytes (promyelocytes, myelocytes and metamyelocytes) > 1% indicates that a LEFT SHIFT is Present. MCH (RBC) [Entitic mass] 30.5 pg 27.0-32.[address] [facility] Nucleated RBC/100 WBC (Bld) [Ratio] 0 % 0-[address] [facility] MCHC Auto (RBC) [Mass/Vol]Or dered By: Dr. Knight on 01-29-2022 MCHC (RBC) [Mass/Vol] 33.7 g/dL 32-36 [facility] No Panel InformationOrdered By: Dr. Knight on 01-29-2022 Estimated GFR (MDRD) Amer 81 mL/min >[address] [facility] Comment on above: GFR Calc Estimated GFR (MDRD) Non-Af Amer 67 mL/min >[address] [facility] Comment on above: Non- GFR Calc Thyroid Stimulating Hormone (TSH) 4.10 uIU/mL 0.358-3.[address] [facility] Total Iron Binding Capacity 307 ug/dL 250-[address] [facility] Vitamin D 25-Hydroxy 37.7 ng/mL [facility] Comment on above: Vitamin D 25(OH) Sta tus Range Deficiency <20 ng/mL (50nmol/L) Insufficiency 20 - 30 ng/mL (50 - 75 nmol/L) Sufficiency 30 - 100 ng/mL (75 - 250 nmol/L) Toxicity >100 ng/mL (>250 nmol/L) Platelets bldOrdered By: Dr. Knight on 01-29-2022 Platelets (Bld) [#/Vol] 316 10*3/uL 150-[address] [facility] Serum or plasma albumin negra urement (mass/volume)Ordered By: Dr. Knight on 01-29-2022 Albumin [Mass/Vol] 3.4 g/dL 3.2-5.0 [facility] Serum or plasma albumin/glob ulin mass ratioOrdered By: Dr. Knight on 01-29-2022 Albumin/Globulin [Mass ratio] 0.8 {ratio} 0.9-2.[address] [facility] Serum or plasma calcium negra urement (mass/volume)Ordered By: Dr. Knight on 01-29-2022 Calcium [Mass/Vol] 9.0 mg/dL 8.5-10.1 [facility] Serum or plasma cholesterol in HDL measurement (mass/volume)Ordered By: Dr. Knight on 01-29-2022 Cholesterol in HDL [Mass/Vol] 60 mg/dL >[address] [facility] Comment on above: The drugs N-Acetylcy steine and Metamizole may falsely depress this assay. Reference Range HDL <40 mg/dL Low HDL Cholesterol HDL >or= 60 mg/dL High HDL Cholesterol Serum or plasma cholesterol in VLDL measurement (mass/volume)Ordered By: Dr. Knight on 01-29-2022 Cholesterol in VLDL [Mass/Vol] 17 mg/dL 5-[address] [facility] Serum or plasma creatinine m easurement (mass/volume)Ordered By: Dr. Knight on 01-29-2022 Creatinine [Mass/Vol] 0.89 mg/dL 0.55-1.02 [facility] Comment on above: The validity of the calculated GFR & GFRAA in patients over 70 years has not been determined. Clinical correlation is essential. Serum or plasma ferritin rajesh surement (mass/volume)Ordered By: Dr. Knight on 01-29-2022 Ferritin [Mass/Vol] 70 ng/mL 8-252 [facility] Serum or plasma low density lipoprotein (LDL) cholesterol measurement (mass/volume)Ordered By: Dr. Knight on 01-29-2022 Cholesterol in LDL [Mass/Vol] 129 mg/dL 0-[address] [facility] Serum or plasma urea nitroge n measurement (mass/volume)Ordered By: Dr. Knight on 01-29-2022 Urea nitrogen [Mass/Vol] 16 mg/dL 7-[address] [facility] Thin prep Papanicolaou smear with manual screeningOrdered By: Dr. Knight on 01-29-2022 Thin prep Papanicolaou smear with manual screening 59 U/L 15-[address] [facility] Thin prep Papanicolaou smear with manual screening 6 5-[address] [facility] Absolute lymphocyte counton 12-19-2021 Lymphocytes Auto (Unsp spec) [#/Vol] 2.04 10*3/uL 0.83-4.[address] [facility] Work Phone: Aldolase ser/plason 12-20-19 22 Aldolase [Catalytic activity/Vol] 7.9 mU/mL 3.3-10.[address] [facility] Work Phone: Comment on above: Performed at: - [address] [id number] Director: Varun Jo PhD, Phone: [phone] at: - [facility] [address] [id number] Director: Kiko Dent MD, Phone: [phone] Atypical perinuclear antineu trophil cytoplasmic antibodies measurementon 12-19-2021 Neutrophil cytoplasmic Ab.perinuclear.atypical IF (S) [Titer] <1:20 titer Neg:<1:[address] [facility] Work Phone: Comment on above: The atypical pANCA p attern has been observed in asignificant percentage of patients with ulcerative colitis,primary sclerosing cholangitis and autoimmune hepatitis. Basophil percentageon 2021 Basophil percentage < 10.0 umol/L 11-32 [facility] Work Phone: Basophil percentage < 0.2 AI 0.0-0.9 [facility] Work Phone: Basophils/100 WBC (Bld) 1.0 % 0-1 [facility] Work Phone: Bilirubin [Mass/Vol] 0.40 mg/dL 0.20-1.00 [facility] Work Phone: Comment on above: For patients on eltr ombopag therapy, use of Dimension [place] TBIL is not recommended. Chloride [Moles/Vol] 103 mmol/L 98-107 [facility] Work Phone: Eosinophils/100 WBC (Bld) 2.1 % 0-[address] [facility] Work Phone: Glucose [Mass/Vol] 78 mg/dL 74-106 [facility] Work Phone: Neutrophils (Bld) [#/Vol] 4.4 10*3/uL 2.0-7.[address] [facility] Work Phone: [phone] Neutrophils/100 WBC (Bld) 61.1 % 47-[address] [facility] Work Phone: Potassium [Moles/Vol] 4.0 mmol/L 3.5-5.1 [facility] Work Phone: Protein [Mass/Vol] 7.9 g/dL 6.4-8.2 [facility] Work Phone: Sodium [Moles/Vol] 139 mmol/L 136-145 [facility] Work Phone: WBC (Bld) [#/Vol] 7.2 10*3/uL 4.4-11.0 [facility] Work Phone: Blood erythrocytes count (nu mber/volume)on 12-19-2021 RBC (Bld) [#/Vol] 5.61 10*6/uL 4.2-5.4 [facility] Work Phone: Blood hemoglobin measurement (mass/volume)on 12-19-2021 Hemoglobin (Bld) [Mass/Vol] 16.6 g/dL 12.0-15.[address] [facility] Work Phone: Blood lymphocytes/100 leukoc yteson 12-19-2021 Lymphocytes/100 WBC (Bld) 28.2 % 19-[address] [facility] Work Phone: [phone] Blood monocytes/100 leukocyt eson 12-19-2021 Monocytes/100 WBC (Bld) 7.5 % 0-10 [facility] Work Phone: Blood platelet mean volumeon 12-19-2021 Platelet mean volume (Bld) [Entitic vol] 10.4 fL 6.2-12.[address] [facility] Work Phone: Determination of erythrocyte mean corpuscular volume (MCV)on 12-19-2021 MCV (RBC) [Entitic vol] 88.4 fL 81-99 [facility] Work Phone: Erythrocyte sedimentation ra oli 12-19-2021 ESR (Bld) [Velocity] 19 mm/h 0-30 [facility] Work Phone: Hematocrit Auto (Bld) [Volum e fraction]on 12-19-2021 Hematocrit (Bld) [Volume fraction] 49.6 % 37-[address] [facility] Work Phone: INR in Blood by Coagulation assayon 12-19-2021 INR Coag (Bld) [Relative time] 1.0 {INR} [facility] Work Phone: Laboratory - Chemistry and C hemistry - challengeon 12-19-2021 ALP [Catalytic activity/Vol] 157 U/L 45-[address] [facility] Work Phone: ALT [Catalytic activity/Vol] 77 U/L 13-[address] [facility] Work Phone: Amylase [Catalytic activity/Vol] 214 U/L 5-[address] [facility] Work Phone: CK [Catalytic activity/Vol] 101 U/L 26-[address] [facility] Work Phone: CO2 [Moles/Vol] 30.0 mmol/L 21.0-32.[address] [facility] Work Phone: Globulin (S) [Mass/Vol] 4.1 g/dL 2.2-4.2 [facility] Work Phone: Urea nitrogen/Creatinine [Mass ratio] 15.8 mg/mg 10-[address] [facility] Work Phone: Laboratory - Coagulationon 0 12-19-2021 PT Coag (PPP) [Time] 12.7 s 11.7-14.9 [facility] Work Phone: Laboratory - Hematology and Cell countson 12-19-2021 Erythrocyte distribution width (RBC) [Entitic vol] 40.4 fL 35.1-43.[address] [facility] Work Phone: Erythrocyte distribution width (RBC) [Ratio] 12.4 % 11.6-14.[address] [facility] Work Phone: Immature granulocytes/100 WBC (Bld) 0.100 % 0.0-0.[address] [facility] Work Phone: Comment on above: IG% - Immature Granu locytes (promyelocytes, myelocytes and metamyelocytes) > 1% indicates that a LEFT SHIFT is Present. MCH (RBC) [Entitic mass] 29.6 pg 27.0-32.[address] [facility] Work Phone: Nucleated RBC/100 WBC (Bld) [Ratio] 0 % 0-[address] [facility] Work Phone: MCHC Auto (RBC) [Mass/Vol]on 12-19-2021 MCHC (RBC) [Mass/Vol] 33.5 g/dL 32-36 [facility] Work Phone: No Panel Informationon 12-19 Centromere B Antibody <0.2 AI 0.0-0.9 [facility] Work Phone: Ceruloplasmin 27.6 mg/dL 19.0-39.[address] [facility] Work Phone: Estimated GFR (MDRD) Amer 89 mL/min >[address] [facility] Work Phone: Comment on above: GFR Calc Estimated GFR (MDRD) Non-Af Amer 73 mL/min >[address] [facility] Work Phone: Comment on above: Non- GFR Calc Haptoglobin 88 mg/dL 37-[address] [facility] Work Phone: HAND PROFILER Antibody 0.2 AI 0.0-0.[address] [facility] Work Phone: Vitamin D 25-Hydroxy 44.8 ng/mL [facility] Work Phone: Comment on above: Vitamin D 25(OH) Sta tus Range Deficiency <20 ng/mL (50nmol/L) Insufficiency 20 - 30 ng/mL (50 - 75 nmol/L) Sufficiency 30 - 100 ng/mL (75 - 250 nmol/L) Toxicity >100 ng/mL (>250 nmol/L) Platelets bldon 12-19-2021 Platelets (Bld) [#/Vol] 281 10*3/uL 150-[address] [facility] Work Phone: Serum DNA double strand anti body assay (units/volume)on 12-19-2021 DNA double strand Ab Qn (S) [IU]/mL 0-[address] [facility] Work Phone: Comment on above: Negative <5 Equivoca l 5 - 9 Positive >9 Serum Anaid-1 antibody assay (u nits/volume)on 12-19-2021 Anaid-1 extractable nuclear Ab Qn (S) <0.2 AI 0.0-0.[address] [facility] Work Phone: Serum Scl-70 extractable nuc lear antibody assay (units/volume)on 12-19-2021 SCL-70 extractable nuclear Ab Qn (S) 0.2 AI 0.0-0.[address] [facility] Work Phone: Serum Santacruz extractable nucl ear antibody detectionon 12-19-2021 Santacruz extractable nuclear Ab Ql (S) <0.2 AI 0.0-0.[address] [facility] Work Phone: Serum classic neutrophil cyt oplasmic antibody assay (units/volume)on 12-19-2021 Neutrophil cytoplasmic Ab.classic Qn (S) <1:20 titer Neg:<1:[address] [facility] Work Phone: Serum mitochondria antibody detectionon 12-19-2021 Mitochondria Ab Ql (S) <20.0 Units 0.0-20.0 [facility] Work Phone: Comment on above: Negative 0.0 - 20.0 Equivocal 20.1 - 24.9 Positive >24.9Mitochondrial (M2) Antibodies are found in 90-96% ofpatients with primary biliary cirrhosis. Serum or plasma C reactive p rotein measurement (mass/volume)on 12-19-2021 CRP [Mass/Vol] mg/L 0.0-3.[address] [facility] Work Phone: Comment on above: C-Reactive Protein ( CRP) provides useful information for thediagnosis, therapy and monitoring of inflammatory processesand associated diseases. For the evaluation of Relative Riskfor Cardiovascular Disease, a High Sensitivity CRP (HSCRP)should be ordered. Serum or plasma actin IgG an tibody assay (units/volume)on 12-19-2021 Actin IgG Qn 10 Units 0-[address] [facility] Work Phone: Comment on above: Negative 0 - 19 Weak positive 20 - 30 Moderate to strong positive >30 Actin Antibodies are found in 52-85% of patients with autoimmune hepatitis or chronic active hepatitis and in 22% of patients with primary biliary cirrhosis. Serum or plasma albumin negra urement (mass/volume)on 12-19-2021 Albumin [Mass/Vol] 3.8 g/dL 3.2-5.0 [facility] Work Phone: Serum or plasma albumin/glob ulin mass ratioon 12-19-2021 Albumin/Globulin [Mass ratio] 0.9 {ratio} 0.9-2.[address] [facility] Work Phone: Serum or plasma angiotensin converting enzyme measurement (enzymatic activity/volume)on 12-19-2021 Angiotensin converting enzyme [Catalytic activity/Vol] 40 U/L [facility] Work Phone: Serum or plasma bone alkalin e phosphatase/total alkaline phosphatase ratio (catalyticon 12-19-2021 ALP Bone [Catalytic fraction] 34 % [facility] Work Phone: Serum or plasma calcitriol m easurement (mass/volume)on 12-19-2021 1,25-dihydroxyvitamin D3 [Mass/Vol] 31.4 pg/mL 24.8-81.[address] [facility] Work Phone: Comment on above: Please note refere nce interval changePerformed at: [facility] [employer] [id number] Director: Varun Jo PhD, Phone: [phone] at: [address] [id number] Director: Kiko Dent MD, Phone: [phone] Serum or plasma calcium negra urement (mass/volume)on 12-19-2021 Calcium [Mass/Vol] 9.1 mg/dL 8.5-10.1 [facility] Work Phone: Serum or plasma creatinine m easurement (mass/volume)on 12-19-2021 Creatinine [Mass/Vol] 0.82 mg/dL 0.55-1.02 [facility] Work Phone: Comment on above: The validity of the calculated GFR & GFRAA in patients over 70 years has not been determined. Clinical correlation is essential. Serum or plasma ferritin rajesh surement (mass/volume)on 12-19-2021 Ferritin [Mass/Vol] 101 ng/mL 8 [facility] Work Phone: Serum or plasma intestinal a lkaline phosphatase/total alkaline phosphatase ratio (nicko 12-19-2021 ALP Intest [Catalytic fraction] 1 % 0-[address] [facility] Work Phone: Serum or plasma liver alkali ne phosphatase/total alkaline phosphatase ratio (catalytion 12-19-2021 ALP Liver [Catalytic fraction] 65 % 18-[address] [facility] Work Phone: Serum or plasma urea nitroge n measurement (mass/volume)on 12-19-2021 Urea nitrogen [Mass/Vol] 13 mg/dL 7-[address] [facility] Work Phone: Serum perinuclear neutrophil cytoplasmic antibody titer by immunofluorescenceon 12-19-2021 Neutrophil cytoplasmic Ab.perinuclear IF (S) [Titer] <1:20 titer Neg:<1:[address] [facility] Work Phone: Comment on above: The presence of posi tive fluorescence exhibiting P-ANCA orC-ANCA patterns alone is not specific for the diagnosis ofWegener's Granulomatosis (WG) or microscopic polyangiitis.Decisions about treatment should not be based solely onANCA IFA results. The [employer] ANCA Group Consensusrecommends follow up testing of positive sera with both CA-3 and MPO-ANCA enzyme immunoassays. As many as 5% serumsamples are positive only by EIA. Ref. AM J Clin [id number];111:507-513. Thin prep Papanicolaou smear with manual screeningon 12-19-2021 Thin prep Papanicolaou smear with manual screening 51 U/L 15-[address] [facility] Work Phone: Thin prep Papanicolaou smear with manual screening 6 5-[address] [facility] Work Phone: Thin prep Papanicolaou smear with manual screening 216 U/L 84-[address] [facility] Work Phone: Thin prep Papanicolaou smear with manual screening 163 IU/L 44-[address] [facility] Work Phone: Thin prep Papanicolaou smear with manual screening 130 ug/dL 80-[address] [facility] Work Phone: Comment on above: Detection Limit = 5 Iron measurement (mass/mass) on 09-28-2021 Iron (Unsp spec) [Mass/Mass] 90 ug/dL 50-[address] [facility] Work Phone: Laboratory - Chemistry and C hemistry - challengeon 09-28-2021 Transferrin [Mass/Vol] 232 mg/dL 192-364 [facility] Work Phone: Comment on above: Performed at: [place] [id number] Director: Varun Jo PhD, Phone: [phone] No Panel Informationon 09-28 Total Iron Binding Capacity 306 ug/dL 250-[address] [facility] Work Phone: Serum or plasma ferritin rajesh surement (mass/volume)on 09-28-2021 Ferritin [Mass/Vol] 132 ng/mL 8-252 [facility] Work Phone: Serum or plasma iron saturat ion measurement (mass fraction)on 09-28-2021 Iron saturation [Mass fraction] 29.4 % 15.0-55.[address] [facility] Work Phone: Absolute lymphocyte counton 09-27-2021 Lymphocytes Auto (Unsp spec) [#/Vol] 1.30 10*3/uL 0.83-4.[address] [facility] Work Phone: Basophil percentageon 2021 Basophils/100 WBC (Bld) 1.4 % 0-1 [facility] Work Phone: [phone] Bilirubin [Mass/Vol] 0.50 mg/dL 0.20-1.00 [facility] Work Phone: Comment on above: For patients on eltr ombopag therapy, use of Dimension [place] TBIL is not recommended. Chloride [Moles/Vol] 107 mmol/L 98-107 [facility] Work Phone: Eosinophils/100 WBC (Bld) 4.2 % 0-[address] [facility] Work Phone: Glucose [Mass/Vol] 95 mg/dL 74-106 [facility] Work Phone: Neutrophils (Bld) [#/Vol] 2.8 10*3/uL 2.0-7.[address] [facility] Work Phone: [phone] Neutrophils/100 WBC (Bld) 55.4 % 47-[address] [facility] Work Phone: Potassium [Moles/Vol] 4.1 mmol/L 3.5-5.1 [facility] Work Phone: Protein [Mass/Vol] 7.3 g/dL 6.4-8.2 [facility] Work Phone: Sodium [Moles/Vol] 140 mmol/L 136-145 [facility] Work Phone: [phone] WBC (Bld) [#/Vol] 5.0 10*3/uL 4.4-11.0 [facility] Work Phone: [phone] Blood erythrocytes count (nu mber/volume)on 09-27-2021 RBC (Bld) [#/Vol] 5.12 10*6/uL 4.2-5.4 [facility] Work Phone: [phone] Blood hemoglobin measurement (mass/volume)on 09-27-2021 Hemoglobin (Bld) [Mass/Vol] 15.3 g/dL 12.0-15.[address] [facility] Work Phone: Blood lymphocytes/100 leukoc yteson 09-27-2021 Lymphocytes/100 WBC (Bld) 25.9 % 19-[address] [facility] Work Phone: Blood monocytes/100 leukocyt eson 09-27-2021 Monocytes/100 WBC (Bld) 12.9 % 0-10 [facility] Work Phone: Blood platelet mean volumeon 09-27-2021 Platelet mean volume (Bld) [Entitic vol] 10.3 fL 6.2-12.[address] [facility] Work Phone: Determination of erythrocyte mean corpuscular volume (MCV)on 09-27-2021 MCV (RBC) [Entitic vol] 90.4 fL 81-99 [facility] Work Phone: Hematocrit Auto (Bld) [Volum e fraction]on 09-27-2021 Hematocrit (Bld) [Volume fraction] 46.3 % 37-[address] [facility] Work Phone: Laboratory - Chemistry and C hemistry - challengeon 09-27-2021 ALP [Catalytic activity/Vol] 179 U/L 45-[address] [facility] Work Phone: ALT [Catalytic activity/Vol] 125 U/L 13-[address] [facility] Work Phone: CO2 [Moles/Vol] 29.0 mmol/L 21.0-32.[address] [facility] Work Phone: Free T4 [Mass/Vol] 1.18 ng/dL 0.76-1.46 [facility] Work Phone: Globulin (S) [Mass/Vol] 4.0 g/dL 2.2-4.2 [facility] Work Phone: Urea nitrogen/Creatinine [Mass ratio] 17.8 mg/mg 10-[address] [facility] [address] [facility] Work Phone: Laboratory - Hematology and Cell countson 09-27-2021 Erythrocyte distribution width (RBC) [Entitic vol] 42.8 fL 35.1-43.[address] [facility] Work Phone: Erythrocyte distribution width (RBC) [Ratio] 12.9 % 11.6-14.[address] [facility] Work Phone: Immature granulocytes/100 WBC (Bld) 0.200 % 0.0-0.[address] [facility] Work Phone: Comment on above: IG% - Immature Granu locytes (promyelocytes, myelocytes and metamyelocytes) > 1% indicates that a LEFT SHIFT is Present. MCH (RBC) [Entitic mass] 29.9 pg 27.0-32.[address] [facility] Work Phone: Nucleated RBC/100 WBC (Bld) [Ratio] 0 % 0-[address] [facility] Work Phone: MCHC Auto (RBC) [Mass/Vol]on 09-27-2021 MCHC (RBC) [Mass/Vol] 33.0 g/dL 32-36 [facility] Work Phone: No Panel Informationon 09-27 Estimated GFR (MDRD) Amer 86 mL/min >[address] [facility] Work Phone: Comment on above: GFR Calc Estimated GFR (MDRD) Non-Af Amer 71 mL/min >[address] [facility] Work Phone: Comment on above: Non- GFR Calc Vitamin D 25-Hydroxy 39.3 ng/mL [facility] Work Phone: Comment on above: Vitamin D 25(OH) Sta tus Range Deficiency <20 ng/mL (50nmol/L) Insufficiency 20 - 30 ng/mL (50 - 75 nmol/L) Sufficiency 30 - 100 ng/mL (75 - 250 nmol/L) Toxicity >100 ng/mL (>250 nmol/L) Platelets bldon 09-27-2021 Platelets (Bld) [#/Vol] 293 10*3/uL 150-[address] [facility] Work Phone: Serum or plasma albumin negra urement (mass/volume)on 09-27-2021 Albumin [Mass/Vol] 3.3 g/dL 3.2-5.0 [facility] Work Phone: Serum or plasma albumin/glob ulin mass ratioon 09-27-2021 Albumin/Globulin [Mass ratio] 0.8 {ratio} 0.9-2.[address] [facility] Work Phone: Serum or plasma calcium negra urement (mass/volume)on 09-27-2021 Calcium [Mass/Vol] 9.1 mg/dL 8.5-10.1 [facility] Work Phone: Serum or plasma creatinine m easurement (mass/volume)on 09-27-2021 Creatinine [Mass/Vol] 0.84 mg/dL 0.55-1.02 [facility] Work Phone: Comment on above: The validity of the calculated GFR & GFRAA in patients over 70 years has not been determined. Clinical correlation is essential. Serum or plasma urea nitroge n measurement (mass/volume)on 09-27-2021 Urea nitrogen [Mass/Vol] 15 mg/dL 7-[address] [facility] Work Phone: Thin prep Papanicolaou smear with manual screeningon 09-27-2021 Thin prep Papanicolaou smear with manual screening 86 U/L 15-[address] [facility] Work Phone: Thin prep Papanicolaou smear with manual screening 4 5-[address] [facility] Work Phone: Absolute lymphocyte counton 06-28-2021 Lymphocytes Auto (Unsp spec) [#/Vol] 1.25 10*3/uL 0.83-4.[address] [facility] Work Phone: Basophil percentageon 2021 Basophils/100 WBC (Bld) 1.3 % 0-1 [facility] Work Phone: Bilirubin [Mass/Vol] 0.50 mg/dL 0.20-1.00 [facility] Work Phone: Comment on above: For patients on eltr ombopag therapy, use of Dimension [place] TBIL is not recommended. Chloride [Moles/Vol] 108 mmol/L 98-107 [facility] Work Phone: Eosinophils/100 WBC (Bld) 5.0 % 0-[address] [facility] Work Phone: [phone] Glucose [Mass/Vol] 98 mg/dL 74-106 [facility]: [phone] Neutrophils (Bld) [#/Vol] 3.0 10*3/uL 2.0-7.[address] [facility] Work Phone: Neutrophils/100 WBC (Bld) 57.5 % 47-[address] [facility] Work Phone: Potassium [Moles/Vol] 4.0 mmol/L 3.5-5.1 [facility]: Protein [Mass/Vol] 7.3 g/dL 6.4-8.2 [facility] Work Phone: Sodium [Moles/Vol] 139 mmol/L 136-145 [facility] Work Phone: WBC (Bld) [#/Vol] 5.2 10*3/uL 4.4-11.0 [facility] Work Phone: Blood erythrocytes count (nu mber/volume)on 06-28-2021 RBC (Bld) [#/Vol] 5.32 10*6/uL 4.2-5.4 [facility] Work [facility]: Blood hemoglobin measurement (mass/volume)on 06-28-2021 Hemoglobin (Bld) [Mass/Vol] 16.2 g/dL 12.0-15.[address] [facility] Work Phone: Blood lymphocytes/100 leukoc yteson 06-28-2021 Lymphocytes/100 WBC (Bld) 24.1 % 19-[address] [facility] Work Phone: Blood monocytes/100 leukocyt eson 06-28-2021 Monocytes/100 WBC (Bld) 11.9 % 0-10 [facility] Work Phone: Blood platelet mean volumeon 06-28-2021 Platelet mean volume (Bld) [Entitic vol] 10.9 fL 6.2-12.[address] [facility] Work Phone: Determination of erythrocyte mean corpuscular volume (MCV)on 06-28-2021 MCV (RBC) [Entitic vol] 89.1 fL 81-99 [facility] Work Phone: Hematocrit Auto (Bld) [Volum e fraction]on 06-28-2021 Hematocrit (Bld) [Volume fraction] 47.4 % 37-[address] [facility] Work Phone: Laboratory - Chemistry and C hemistry - challengeon 06-28-2021 ALP [Catalytic activity/Vol] 133 U/L 45-[address] [facility] Work Phone: ALT [Catalytic activity/Vol] 55 U/L 13-[address] [facility] Work Phone: CO2 [Moles/Vol] 26.0 mmol/L 21.0-32.[address] [facility] Work Phone: Free T4 [Mass/Vol] 0.78 ng/dL 0.76-1.46 [facility] Work Phone: Globulin (S) [Mass/Vol] 3.9 g/dL 2.2-4.2 [facility] Work Phone: Urea nitrogen/Creatinine [Mass ratio] 15.3 mg/mg 10-[address] [facility] Work Phone: Laboratory - Hematology and Cell countson 06-28-2021 Erythrocyte distribution width (RBC) [Entitic vol] 41.0 fL 35.1-43.[address] [facility] Work Phone: Erythrocyte distribution width (RBC) [Ratio] 12.5 % 11.6-14.[address] [facility] Work Phone: Immature granulocytes/100 WBC (Bld) 0.200 % 0.0-0.[address] [facility] Work Phone: Comment on above: IG% - Immature Granu locytes (promyelocytes, myelocytes and metamyelocytes) > 1% indicates that a LEFT SHIFT is Present. MCH (RBC) [Entitic mass] 30.5 pg 27.0-32.[address] [facility] Work Phone: Nucleated RBC/100 WBC (Bld) [Ratio] 0 % 0-[address] [facility] Work Phone: MCHC Auto (RBC) [Mass/Vol]on 06-28-2021 MCHC (RBC) [Mass/Vol] 34.2 g/dL 32-36 [facility] Work Phone: No Panel Informationon 06-28 Estimated GFR (MDRD) Amer 78 mL/min >[address] [facility] Work Phone: Comment on above: GFR Calc Estimated GFR (MDRD) Non-Af Amer 65 mL/min >[address] [facility] Work Phone: Comment on above: Non- GFR Calc Thyroid Stimulating Hormone (TSH) 3.96 uIU/mL 0.358-3.[address] [facility] Work Phone: Vitamin D 25-Hydroxy 49.2 ng/mL [facility] Work Phone: Comment on above: Vitamin D 25(OH) Sta tus Range Deficiency <20 ng/mL (50nmol/L) Insufficiency 20 - 30 ng/mL (50 - 75 nmol/L) Sufficiency 30 - 100 ng/mL (75 - 250 nmol/L) Toxicity >100 ng/mL (>250 nmol/L) Platelets bldon 06-28-2021 Platelets (Bld) [#/Vol] 285 10*3/uL 150-[address] [facility] Work Phone: Serum or plasma albumin negra urement (mass/volume)on 06-28-2021 Albumin [Mass/Vol] 3.4 g/dL 3.2-5.0 [facility] Work Phone: Serum or plasma albumin/glob ulin mass ratioon 06-28-2021 Albumin/Globulin [Mass ratio] 0.9 {ratio} 0.9-2.[address] [facility] Work Phone: Serum or plasma calcium negra urement (mass/volume)on 06-28-2021 Calcium [Mass/Vol] 9.1 mg/dL 8.5-10.1 [facility] Work Phone: Serum or plasma creatinine m easurement (mass/volume)on 06-28-2021 Creatinine [Mass/Vol] 0.92 mg/dL 0.55-1.02 [facility] Work Phone: Comment on above: The validity of the calculated GFR & GFRAA in patients over 70 years has not been determined. Clinical correlation is essential. Serum or plasma urea nitroge n measurement (mass/volume)on 06-28-2021 Urea nitrogen [Mass/Vol] 14 mg/dL 7-[address] [facility] Work Phone: Thin prep Papanicolaou smear with manual screeningon 06-28-2021 Thin prep Papanicolaou smear with manual screening 32 U/L 15-[address] [facility] Work Phone: Thin prep Papanicolaou smear with manual screening 5 5-[address] [facility] Work Phone: CNOVon 04-25-2017 CNOV Office Visit (GASTWC) LEONELA MAY RA ([id number]) 1950 FDate Time Provider Fzunowlxix64/29/17 8:20 AM TY CRENSHAW (HOA) [facility] During your visit today, we recorded the following information about you: Pulse Blood pressure Weight Height 65/minute 122/78 65.3 kg 1.549 Alyssa Crenshaw RN CNP 04/25/2017 9:02 AM Ariel May a 66 year old female who is returning for follow up regardingdysphagia. I saw the patient on 04/01/17 to discuss screening colonoscopy. Thatnote has been reviewed.The patient was seen by Dr. Ross for upper endoscopy and zijyfylobmk57/11/17. The procedure report has been reviewed and [...] other than HPI.PAST MEDICAL HISTORYDiagnosis Date- Dysphagia, unspecified(237.20)- Esophagitis, unspecified- Internal hemorrhoids without mention of complication- Osteoarthritis- PMH - PAST MEDICAL HISTORY OF DDD in cervical disc- Stricture and stenosis of esophagusPAST SURGICAL HISTORYProcedure Laterality Date- COLONOSCOP W/ OR W/O RUST SPEC 07/31/06- COLONOSCOP W/ OR W/O RUST SPEC 04/07/2017 repeat 10 years- CRANIOTOMY,NEUROELEC,ALISIA ICAL 1993- DANDamp;C, DIAG AND/OR THERAPEUTIC 1975 Dilation ANDamp; curettage- EGD W/O BRSH SPECIMEN W/BX 02/18/11 with balloon dilation- EGD W/O OR W/BRUSH/WASH 04/07/2017 EGD- LAMINECTOMY,ANDgt;2 SGMT,LUMBAR 2004- PAST SURGICAL HISTORY OF 2004 wrist surgery right- PAST SURGICAL HISTORY OF 2009 wrist surgery leftFAMILY HISTORYProblem Relation Age of Onset- Colon Cancer Other COUSIN ON MOTHERS SIDE- Heart Father- Arthritis Sister- IBS [OTHER] Sister- eye problems [OTHER] Brother- stomach issues [OTHER] BrotherCurrent Outpatient Prescriptions:glucosam-ms g-ghznxmhwd-gfu D3 750 mg-125 mg -600 mg tab Take by mouth twicedaily. Disp: Rfl:Cholecalciferol, Vitamin D3, 2,000 unit cap Take by mouth once daily. Disp:Rfl:CINNAMON BARK (CINNAMON ORAL) Take by mouth as needed. Disp: Rfl:carboxymethylcellulos e (REFRESH TEARS) 0.5 % drop Use 1 [...] patient. I have reviewed theinformation that the BEHAVIORAL INSTRUCTOR entered for this encounter. Greater than 25 [...] anti-spasmotic.Follow up as needed.Referring Provider: RYAN ROSS [[id number]]Allergies As of Date: 04/25/2017 Noted Allergy ReactionDILANTIN (PHENYTOIN SODIUM EXTEND*06/30/2006TRIMPEX (TRIMETHOPRIM) 06/30/2006Date Reviewed: 04/25/2017Reviewed by: Ai Small BEHAVIORAL INSTRUCTOR - Fully AssessedReason for Visit: follow up procedure colon/EGD [facility] 04-07-17 [Other]Primary Visit Diagnosis:Gastroesophagea l reflux disease with esophagitis [K21.0]Prescriptions as of [...] by TY CRENSHAW CNP on 04/25/17 [facility] 04-25-2017 PROGRESS HNO ID: [id number] thor: Ty (Mainframe Architect) ThorpeService: (none)Author Type: Nurse PractitionerType: Progress NotesFiled: 04/25/2017 9:02 AMNote Text:Rachel May a 66 year old female who is returning for follow upregarding dysphagia. I saw the patient on 04/01/17 to discuss screeningcolonoscopy. That note has been reviewed.The patient was seen by Dr. Ross for upper endoscopy and rrkomqxdpzu04/11/17. The procedure report has been reviewed and [...] HISTORYProcedure Laterality Date- COLONOSCOP W/ OR W/O RUST SPEC 07/31/06- COLONOSCOP W/ OR W/O RUST SPEC 04/07/2017 repeat 10 years- CRANIOTOMY,NEUROELEC,ALISIA ICAL 1993- DANDC, DIAG AND/OR THERAPEUTIC 1974 Dilation AND curettage- EGD W/O RUST SPECIMEN W/BX 02/18/11 with balloon dilation- EGD W/O OR W/BRUSH/WASH 04/07/2017 EGD- LAMINECTOMY,>2 SGMT,LUMBAR 2004- PAST SURGICAL HISTORY OF 2004 wrist surgery right- PAST SURGICAL HISTORY OF 2009 wrist surgery leftFAMILY HISTORYProblem Relation Age of Onset- Colon Cancer Other COUSIN ON MOTHERS SIDE- Heart Father- Arthritis Sister- IBS [OTHER] Sister- eye problems [OTHER] Brother- stomach issues [OTHER] BrotherCurrent Outpatient Prescriptions:glucosam-ms z-ityhtsvro-gci D3 750 mg-125 mg -600 mg tab Take by mouthtwice daily. Disp: Rfl:Cholecalciferol, Vitamin D3, 2,000 unit cap Take by mouth once daily.Disp: Rfl:CINNAMON BARK (CINNAMON ORAL) Take by mouth as needed. Disp: Rfl:carboxymethylcellulos e (REFRESH TEARS) 0.5 % drop Use 1 [...] patient. I have reviewedthe information that the BEHAVIORAL INSTRUCTOR entered for this encounter. Greater than 25minutes total time used this visit to review old chart, review newinformation, update current history and evaluate patient. A majority ofthe time was spent in discussion and counseling to formulate the plan.Ty Crenshaw RN [facility] HISTORY PHYSICALon 7 Cholesterol HNO ID: [id number] thor: Ryan Savage: GastroenterologyAuthor Type: PhysicianType: HANDPFiled: [...] 07, 2017 : 2:45 PM PAGER: [facility] NURSING PROGon 04-07-2017 NURSING PROG HNO ID: [id number] thor: DAMARI Hernandez Rnervice: (none)Author Type: Registered NurseType: Nursing Progress NoteFiled: 04/07/2017 4:12 PMNote Text:Patient did not experience a fall prior to discharge.Patient did not experience a burn prior to discharge.Genesis Cardenas RN [facility] NURSING PROG HNO ID: [id number] Author: Genesis Cardenas RN Service: (none) Author Type: Registered Nurse Type: Nursing Progress Note Filed: 04/07/2017 3:39 PM Note Text: Patient sitting up in bed tolerating juice without problems. Genesis Cardenas RN [facility] NURSING PROG HNO ID: [id number] thor: Ana Cristina Hernandez Rn: (none)Author Type: Registered NurseType: Nursing Progress NoteFiled: 04/07/2017 3:30 PMNote Text:Patient arrived to PACU, on left side, abdomen soft. Patient restingcomfortably.Bhumi Cardenas RN [facility] NURSING PROG HNO ID: [id number] thor: Maria Victoria AlvaradoRnVero Santanaice: NursingAuthor Type: Registered NurseType: Nursing Progress NoteFiled: 04/07/2017 3:19 PMNote Text:Preoperative order for IV Antibiotic Prophylaxis is N/A.Patient did not experience a fall within the Intraoperative proceduralarea.Patient did not experience a burn within the Intraoperative proceduralarea.Maria Victoria Harmon RN [facility] NURSING PROG HNO ID: [id number] thor: Ana Cristina Hernandez Rn: (none)Author Type: Registered NurseType: Nursing Progress NoteFiled: 04/07/2017 4:16 PMNote Text: Patient did not experience a fall within the Preoperative area.Patient did not experience a burn within the Preoperative area.[facility] PRE-OP NURSING HAND OFF NOTESBAR Hand off given to Jacqueline Vee RN.Hand off was communicated verbally and at the patient's bedside and allquestions were answered.Eliecer Hernandez RN [facility] PT EDon 04-07-2017 PT ED HNO ID: [id number] thor: Ana Cristina Hernandez Rn: (none)Author Type: Registered NurseType: Patient EducationFiled: 04/07/2017 2:13 PMNote Text:PRE OP LEARNING ASSESSMENTPROCEDURE/SURGE RY: GI PROCEDURES: Colonoscopy and EGDREADINESS TO LEARNCOGNITIVE ABILITY: Alert and orientedMOTIVATION TO LEARN: EagerInterestedFAMILY SUPPORT: High - Very involved in pt carePATIENT LEARNS BEST BY: Individual InstructionWritten Instruction - Hand-outsVerbal InstructionMultiple MethodsFACTORS AFFECTING LEARNING: NonePHYSICAL LIMITATIONS AFFECTING LEARNING: NoneElectronically Signed By: Genesis Cardenas RN In Department: AMBULATORYSURGERY [facility] SURGICAL PATHOLOGYon 017 SURGICAL PATHOLOGY [facility]: [id number] Physician: RYAN ROSS MD _FINAL DIAGNOSIS1. Stomach, antrum, biopsy (A) - Gastric oxyntic mucosa with no diagnosticalteration.- No histomorphologic evidence of Helicobacter pylori.2. Esophagus, mid, biopsy (B) - Minimal active esophagitis (please seecomment).EDK/poncho 04/08/17COMMENTA GMS performed on part 2 is negative for fungal forms.Madalyn Romero D.O.(Electronic Signature) __SPECIMEN SUBMITTEDA: ANTRUM, BIOPSY B: MID ESOPHAGUS, BIOPSY CLINICAL DATAZ12.11, R13.10GROSS DESCRIPTIONA. Received in formalin are two pieces of olmedo, soft tissue aggregating to0.6 x 0.2 x 0.2 cm. Totally submitted in one cassette.B. Received in formalin are two pieces of olmedo, soft tissue aggregating to0.3 x 0.1 x 0.1 cm. Totally submitted in one cassette.Gross examination performed at [facility], [address] [place] [id number] 04/08/2017 2:09:30 AMPatient ID #: [id number] of Report: 04/11/2017Date of Procedure: 04/07/2017Date of Receipt: 04/07/2017Submitted by: RYAN ROSS MDLocation: [id number] interpretation performed at [address] [address]. [facility] HOSPon 04-02-2017 HOSP Patient:Leonela May ra KMRN: Height:5' 1(1.549 m)Weight:144 lb 12.8 oz (65.681 kg)Outpatient Medications as of 04/07/17:gdpjqyzf-gho-fwt ndroit-vit D3 750 mg-125 mg -600 mg tabCholecalciferol, Vitamin D3, 2,000 unit capCINNAMON BARK (CINNAMON ORAL)carboxymethylcellulo se (REFRESH TEARS) 0.5 % dropAdmission/Clinic Administered Medications as of 04/07/17:lactated ringers infusionProblem List:Stricture and stenosis of esophagus [K22.2]Esophagitis, unspecified [K20.9]Dysphagia, unspecified(787.20) [R13.10]Encounter for screening for malignant neoplasm of colon [Z12.11]Allergies:[place] n [Phenytoin Sodium Extended]Trimpex [Trimethoprim]Date Verified: 04/07/17Lab ValuesNo results within the last 30 days for the following basenames: K,HCTProgress Notes ([facility]):Ai Small LPN 04/02/2017 8:04 AM SignedAMBULATORY PATIENT EDUCATION NOTEREADINESS TO LEARNCogntitive ability: Alert and orientedMotivation to learn: InterestedFamily support: Unable to assess - family not presentInstruction provided to: PatientPatient learns best by: Individual instruction, written instruction (hand-outs),and verbal instruction.Factors affecting learning: NonePhysical limitations affecting learning: NoneLEARNING RESPONSEDiagnosis: dysphagia/screeningEducat ion topic/teaching points: ColonoscopyUpper EndoscopyMETHOD OF INSTRUCTION:Teachback:Ind ividual instruction, written instruction(hand-outs), and verbal instruction.Patient/famil y response: Verbalizes understanding of pre-procedure instructions.Follow-up plan: Complete - No need for follow-upSupplemental material: NonePatient instructed to check insurance benefits and precertification.Patienti nstructed to bring in advanced directives if applicable.Referral Entered: NoDoes patient have a Pacemaker or Defibrillator? NoElectronically Signed By: Ai Gregg department: Gastroenterology [facility] CNOVon 04-01-2017 CNOV Office Visit (GAST) LEONELA MAY RA ([id number]) 1950 [facility] Time Provider Odfculqwko28/5/17 4:00 PM YT CRENSHAW (DRILL PUNCH OPERATOR) [facility] During your visit today, we recorded the following information about you: Pulse Blood pressure Weight Height 60/minute 113/72 65.7 kg 1.549 Alyssa Crenshaw RN CNP 04/01/2017 5:10 PM Signedfadyra Sher May a 66 year old female [...] There has not been melena. No abdominal pain.GEOCHEMICAL MANAGER: Negative for abnormal vaginal bleeding, abnormal vaginal discharge.MUSCULOSKELETAL : Positive for back pain and pain related to arthritis.Occasional ibuprofenPSYCH: Negative for sleep disturbance, mood disorder and recent psychosocialstressors.HEM ATOLOGY/LYMPHOLOGY Negative for prolonged bleeding, bruising easily orswollen [...] HISTORYProcedure Laterality Date- COLONOSCOP W/ OR W/O RUST SPEC 07/31/06- CRANIOTOMY,NEUROELEC,ALISIA ICAL 1993- DANDamp;C, DIAG AND/OR THERAPEUTIC 1974 Dilation ANDamp; curettage- EGD W/O RUST SPECIMEN W/BX 02/18/11 with balloon dilation- LAMINECTOMY,ANDgt;2 SGMT,LUMBAR 2004- PAST SURGICAL HISTORY OF 2004 wrist surgery right- PAST SURGICAL HISTORY OF 2010 wrist surgery leftFAMILY HISTORYProblem Relation Age of Onset- Colon Cancer Other COUSIN ON MOTHERS SIDE- Heart Father- Arthritis Sister- IBS [OTHER] Sister- eye problems [OTHER] Brother- stomach issues [OTHER] BrotherCurrent Outpatient Prescriptions:glucosam-ms n-nwvuktbbh-eau D3 750 mg-125 mg -600 mg tab Take by mouth twicedaily. Disp: Rfl:Cholecalciferol, Vitamin D3, 2,000 unit cap Take by mouth once daily. Disp:Rfl:CINNAMON BARK (CINNAMON ORAL) Take by mouth as needed. Disp: Rfl:carboxymethylcellulos e (REFRESH TEARS) 0.5 % drop Use 1 [...] patient. I have read theinformation that the BEHAVIORAL INSTRUCTOR documented in this encounter. This visit was at least30 minutes in length with a majority of the time spent in review of the pastrecords with the patient, discussion and counseling.Ty Crenshaw RN CNPessie Crenshaw RN CNP 04/01/2017 4:48 PM SignedPlease follow the provided instructions for upper endoscopy and colonoscopy.You will be using GoLytely as the laxative during the preparation. You maystart the laxative as early as 1:00 in the afternoon.Your procedures will be April 07, with Dr. Ross.Referring Provider: SELF [[id number]]Allergies As of Date: 04/01/2017 Noted Allergy ReactionDILANTIN (PHENYTOIN SODIUM EXTEND*06/30/2006TRIMPEX (TRIMETHOPRIM) 06/30/2006Date Reviewed: 04/01/2017Reviewed by: Ai Small BEHAVIORAL INSTRUCTOR - Fully AssessedReason for Visit: colon consult [Other]Primary Visit Diagnosis:Dysphagia, unspecified type [R13.10] Other Visit Diagnosis:Encounter for screening for malignant neoplasm of colon [Z12.11]Order(s):EGD [[id number]] Order #: [id number] FUTURE COLONOSCOPY SCRN NOT HIGH RISK [[id number]] Order #: [id number] FUTURE peg 3350-electrolytes (COLYTE) 240-22.72-6.72 -5.84 gram [...] by TY CRENSHAW CNP on 04/01/17 [facility] HISTORY PHYSICALon HISTORY PHYSICAL HNO ID: [id number] thor: Ty (Mainframe Architect) LoganpeService: (none)Author Type: Nurse PractitionerType: HANDPFiled: 04/01/2017 5:10 [...] bleeding. There has not beenmelena. No abdominal pain.GEOCHEMICAL MANAGER: Negative for abnormal vaginal bleeding, abnormal vaginal discharge.MUSCULOSKELETAL : Positive for back pain and pain related to arthritis.Occasional ibuprofenPSYCH: Negative for sleep disturbance, mood disorder and recentpsychosocial stressors.HEMATOLOGY/LYMP HOLOGY Negative for prolonged bleeding, bruising easily orswollen [...] HISTORYProcedure Laterality Date- COLONOSCOP W/ OR W/O RUST SPEC 07/31/06- CRANIOTOMY,NEUROELEC,ALISIA ICAL 1993- DANDC, DIAG AND/OR THERAPEUTIC 1974 Dilation AND curettage- EGD W/O RUST SPECIMEN W/BX 02/18/11 with balloon dilation- LAMINECTOMY,>2 SGMT,LUMBAR 2004- PAST SURGICAL HISTORY OF 2004 wrist surgery right- PAST SURGICAL HISTORY OF 2010 wrist surgery leftFAMILY HISTORYProblem Relation Age of Onset- Colon Cancer Other COUSIN ON MOTHERS SIDE- Heart Father- Arthritis Sister- IBS [OTHER] Sister- eye problems [OTHER] Brother- stomach issues [OTHER] BrotherCurrent Outpatient Prescriptions:glucosam-ms x-kejnqkyeh-oyk D3 750 mg-125 mg -600 mg tab Take by mouthtwice daily. Disp: Rfl:Cholecalciferol, Vitamin D3, 2,000 unit cap Take by mouth once daily.Disp: Rfl:CINNAMON BARK (CINNAMON ORAL) Take by mouth as needed. Disp: Rfl:carboxymethylcellulos e (REFRESH TEARS) 0.5 % drop Use 1 [...] patient. I have read theinformation that the BEHAVIORAL INSTRUCTOR documented in this encounter. This visit was atleast 30 minutes in length with a majority of the time spent in review ofthe past records with the patient, discussion and counseling.Ty Crenshaw RN RRTS [facility] Vital Signs Date Time Vital Sign Value Performing Clinician Hector hernandez 12-20-2024 09:11-0400 Body height 149.[address] Tyron Knight MD Work Phone: [facility] 12-20-2024 09:07-0400 Body mass index (BMI) [Ratio] 29.9 kg/m2 Dr. Tyron Knight MD Work Phone: [facility] 12-20-2024 09:07-0400 Body weight 67.[address] Tyron Knight MD Work Phone: [facility] 12-20-2024 09:07-0400 Diastolic blood pressure 62 mm[Hg] Dr. Tyron Knight MD Work Phone: [facility] 12-20-2024 09:07-0400 Systolic blood pressure 106 mm[Hg] Dr. Tyron Knight MD Work Phone: [facility] 12-03-2024 15:33-0400 Body height 149.[address] Tyron Knight MD Work Phone: [facility] 12-03-2024 15:33-0400 Body mass index (BMI) [Ratio] 30.1 kg/m2 Dr. Tyron Knight MD Work Phone: [facility] 12-03-2024 15:33-0400 Body weight 67.[address] Tyron Knight MD Work Phone: [facility] 12-03-2024 15:33-0400 Diastolic blood pressure 88 mm[Hg] Dr. Tyron Knight MD Work Phone: [facility] 12-03-2024 15:33-0400 Heart rate 72 /min Dr. Tyron Knight MD Work Phone: [facility] 12-03-2024 15:33-0400 SaO2% (BldA) [Mass fraction] 98 % Dr. Tyron Knight MD Work Phone: [facility] 12-03-2024 15:33-0400 Systolic blood pressure 133 mm[Hg] Dr. Tyron Knight MD Work Phone: 8(795)420-806426 [place] [address] 04-03-2023 10:30-0500 Body height 157.[address] Tyron Knight Work Phone: 7(586)695-584226 [place] [address] 04-03-2023 10:30-0500 Body weight 70.[address] Tyron Knight Work Phone: 6(084)329-036204 [address] 02-21-2023 08:54-0400 Body mass index (BMI) [Ratio] 28.3 kg/m2 Dr. Tyron Knight Work Phone: 3(831)604-729826 [place] [address] 02-21-2023 08:54-0400 Body weight 70.[address] Tyron Knight Work Phone: 6(028)877-779204 [address] 02-21-2023 08:54-0400 Diastolic blood pressure 85 mm[Hg] Dr. Tyron Knight Work Phone: 7(070)129-452004 [address] 02-21-2023 08:54-0400 Heart rate 68 /min Dr. Tyron Knight Work Phone: 6(611)256-614726 [place] [address] 02-21-2023 08:54-0400 SaO2% (BldA) [Mass fraction] 96 % Dr. Tyron Knight Work Phone: 1(614)291-944926 [place] [address] 02-21-2023 08:54-0400 Systolic blood pressure 148 mm[Hg] Dr. Tyron Knight Work Phone: [facility] 11-21-2022 12:53-0400 Body height 157.[address] Tyron Knight Work Phone: [facility] 11-21-2022 12:53-0400 Body mass index (BMI) [Ratio] 27.4 kg/m2 Dr. Tyron Knight Work Phone: [facility] 11-21-2022 12:53-0400 Body weight 68.[address] Tyron Knight Work Phone: [facility] 10-18-2022 09:34-0400 Body height 152.[address] Tyron Knight Work Phone: [facility] 10-18-2022 09:34-0400 Body mass index (BMI) [Ratio] 29.7 kg/m2 Dr. Tyron Knight Work Phone: 5(410)620-519226 [place] [address] 10-18-2022 09:34-0400 Body weight 68.[address] Tyron Knight Work Phone: 4(765)356-250526 [place] [address] 05-17-2022 09:32-0500 Body height 154.[address] Tyron Knight Work Phone: 5(694)037-411426 [place] [address] 05-17-2022 09:32-0500 Body mass index (BMI) [Ratio] 29 kg/m2 Dr. Tyron Knight Work Phone: 9(595)662-168626 [place] [address] 05-17-2022 09:32-0500 Body weight 69.[address] Tyron Knight Work Phone: [facility] 05-17-2022 09:32-0500 Diastolic blood pressure 78 mm[Hg] Dr. Tyron Knight Work Phone: [facility] 05-17-2022 09:32-0500 Heart rate 57 /min Dr. Tyron Knight Work Phone: [facility] 05-17-2022 09:32-0500 SaO2% (BldA) [Mass fraction] 94 % Dr. Tyron Knight Work Phone: [facility] 05-17-2022 09:32-0500 Systolic blood pressure 120 mm[Hg] Dr. Tyron Knight Work Phone: [facility] 05-02-2022 09:22-0500 Body temperature 98 [degF] Dr. Tyron Knight Work Phone: [facility] 05-02-2022 09:22-0500 Diastolic blood pressure 76 mm[Hg] Dr. Tyron Knight Work Phone: [facility] 05-02-2022 09:22-0500 Heart rate 76 /min Dr. Tyron Knight Work Phone: [facility] 05-02-2022 09:22-0500 Respiratory rate 16 /min Dr. Tyron Knight Work Phone: [facility] 05-02-2022 09:22-0500 SaO2% (BldA) [Mass fraction] 98 % Dr. Tyron Knight Work Phone: [facility] 05-02-2022 09:22-0500 Systolic blood pressure 119 mm[Hg] Dr. Tyron Knight Work Phone: [facility] 05-02-2022 07:55-0500 Body mass index (BMI) [Ratio] 29.1 kg/m2 Dr. Tyron Knight Work Phone: [facility] 05-02-2022 07:55-0500 Body weight 69.[address] Tyron Knight Work Phone: [facility] Encounters Encounter Date Encounter Type Care Provider Facility Start: 02-09-2025 ambulatory [facility] Facility: [facility] Start: 02-03-2025 End: 02-03-2025 ambulatory [facility] Facility:[facility] Start: 12-20-2024 End: 12-20-2024 Patient encounter procedure Doris KEENAN -[facility] Work Phone: Start: 12-20-2024 End: 12-20-2024 Patient encounter status Doris KEENAN [facility] Start: 12-20-2024 End: 12-20-[address] Tyron Knight MD Work Phone: [facility] Start: 12-03-2024 End: 12-03-[address] Usman Mares MD -[facility] Work Phone: Start: 12-03-2024 End: 12-03-[address] Tyron Knight MD Work Phone: -[facility] Start: 12-01-2024 End: 12-01-[address] Tyron Knight MD Work Phone: -Outpatient Breast Imaging Start: 12-01-2024 End: 12-01-[address] Tyron Knight MD -Outpatient Breast Imaging Work Phone: Start: 12-01-2024 End: 12-01-2024 ambulatory Tyron Knight Facility:[facility] Start: 11-23-2024 End: 11-23-[address] Tyron Knight MD Work Phone: -Outpatient Bone Densitometry Start: 11-23-2024 End: 11-23-[address] Tyron Knight MD -Outpatient Bone Densitometry Work Phone: Start: 11-23-2024 End: 11-23-2024 ambulatory Tyron Knight Facility:[facility] Start: 11-08-2024 End: 11-08-[address] Tyron Knight MD Work Phone: -Ultrasound [facility] Start: 11-08-2024 End: 11-08-[address] Usman Mares MD -Ultrasound [facility] Work Phone: Start: 11-08-2024 End: 11-08-2024 ambulatory Tyron Knight Facility:[facility] Start: 11-01-2024 End: 11-01-[address] Tyron Knight MD Work Phone: -Laboratory Start: 11-01-2024 End: 11-01-[address] Usman Mares MD -Laboratory Work Phone: Start: 11-01-2024 End: 11-01-2024 ambulatory [facility] Facility:[facility] Start: 06-07-2024 End: 06-08-2024 ambulatory [facility] Facility:[facility] Start: 06-03-2024 End: 06-03-2024 ambulatory Tyron Knight Facility:[facility] Start: 05-01-2023 End: 05-01-[address] Tyron Knight Work Phone: [facility] Work Phone: Start: 05-01-2023 End: 05-01-[address] Tyron Knight Work Phone: [facility] Start: 04-03-2023 End: 04-27-[address] Tyron Knight Work Phone: [facility] Work Phone: Start: 04-03-2023 End: 04-27-[address] Tyron Knight Work Phone: [facility] Work Phone: Start: 02-21-2023 End: 02-21-[address] Tyron Knight Work Phone: [facility] Work Phone: Start: 12-02-2022 End: 12-02-[address] Tyron Knight Work Phone: [facility] Work Phone: Start: 12-02-2022 End: 12-02-[address] Tyron Kinght Work Phone: [facility] Work Phone: Start: 11-26-2022 End: 11-26-[address] Tyron Knight Work Phone: [facility] Work Phone: Start: 11-26-2022 End: 11-26-[address] Tyron Knight Work Phone: [facility] Work Phone: Start: 11-21-2022 Non-patient / Non-visit Dr. Tyron Knight Work Phone: [facility] Work Phone: Start: 11-21-2022 End: 11-21-[address] Tyron Knight Work Phone: [facility] Work Phone: Start: 11-21-2022 End: 11-21-[address] Tyron Knight Work Phone: [facility]-Outpatient Bone Densitometry Work Phone: Start: 11-12-2022 End: 11-12-[address] Tyron Knight Work Phone: [facility]-Ultrasound, [facility] Work Phone: Start: 11-07-2022 End: 11-07-[address] Tyron Knight Work Phone: [facility] Work Phone: Start: 11-07-2022 End: 11-07-[address] Tyron Knight Work Phone: [facility] Start: 10-18-2022 End: 10-18-[address] Tyron Knight Work Phone: [facility] Work Phone: Start: 05-17-2022 End: 05-17-[address] Tyron Knight Work Phone: [facility] Start: 05-10-2022 End: 05-10-[address] Tyron Knight Work Phone: [facility] Work Phone: Start: 05-10-2022 End: 05-10-[address] Tyron Knight Work Phone: [facility] Start: 05-02-2022 Non-patient / Non-visit Dr. Tyron Knight Work Phone: [facility] Start: 05-02-2022 End: 05-02-2022 Admission to same day surgery center [facility] Start: 03-06-2022 End: 03-06-[address] Tyron Knight Work Phone: [facility] Start: 01-29-2022 End: 01-29-[address] Tyron Knight Work Phone: [facility] Start: 12-26-2021 End: 12-26-[address] Tyron Knight Work Phone: [facility] Work Phone: Start: 12-26-2021 End: 12-26-[address] Tyron Knight Work Phone: [facility] Start: 12-19-2021 End: 12-19-[address] Tyron Knight Work Phone: [facility] Work Phone: Start: 12-19-2021 End: 12-19-[address] Tyron Knight Work Phone: [facility] Start: 12-19-2021 End: 12-19-[address] Tyron Knight Work Phone: [facility] Start: 10-19-2021 End: 10-19-2021 Patient encounter procedure [facility] Start: 09-27-2021 End: 09-27-2021 Patient encounter procedure [facility] Start: 06-28-2021 End: 06-28-2021 Patient encounter procedure [facility] Start: 04-25-2017 End: 04-25-2017 Ambulatory TY (DRILL PUNCH OPERATOR) [facility]SEM[facility] Start: 04-07-2017 End: 04-07-2017 Ambulatory RYAN ROSS [facility] Start: 04-01-2017 End: 04-03-2017 Ambulatory TY (DRILL PUNCH OPERATOR) [facility] Procedures Date Procedure Procedure Detail Performing Clinician Start: 12-01-2024 Screening mammography Denis Knight MD Work Phone: Start: 11-23-2024 Dual energy X-ray absorptiometry Dr. Tyron Knight MD Work Phone: Start: 11-08-2024 Ultrasound elastogra phy of liver [...] elastography of liver ABD Limited w/ Elastography [facility] Start: 05-02-2022 Egd insert guide wire dilator passage esophagus EGD GUIDE WIRE INSERTION [facility] Start: 05-02-2022 Egd transoral biopsy single/multiple EGD BIOPSY SINGLE/MULTIPLE [facility] Start: 05-02-2022 Patient discharge [facility] Start: 12-19-2021 Aldolase [Enzymatic activity/volume] in Serum or Plasma [facility] Work Phone: Start: 12-19-2021 Angiotensin converting enzyme [Enzymatic activity/volume] in Serum or Plasma [facility] Work Phone: Start: 12-19-2021 Ceruloplasmin [Mass/volume] in Serum or Plasma [facility] Work Phone: Start: 12-19-2021 Copper [Moles/volume] in Serum or Plasma [facility] Work Phone: Start: 12-19-2021 Haptoglobin [Mass/volume] in Serum or Plasma [facility] Work Phone: Start: 12-19-2021 Mitochondria Ab [Presence] in Serum [facility] Work Phone: Start: 12-19-2021 Smooth muscle Ab [Presence] in Serum [facility] Work Phone: Start: 12-19-2021 Vitamin D, 1,25-dihydroxy measurement [facility] Work Phone: Start: 12-19-[address] [facility] Work Phone: Aldolase [Enzymatic activity/volume] in Serum or Plasma [facility] Work Phone: Alkaline phosphatase - bone isoenzyme measurement [facility] Work Phone: Alkaline phosphatase [Enzymatic activity/volume] in Serum or Plasma [facility] Work Phone: Alkaline phosphatase liver isoenzyme measurement [facility] Work Phone: Alpha 1 antitrypsin [Mass/volume] in Serum or Plasma [facility] Work Phone: Angiotensin converti ng enzyme [Enzymatic activity/volume] in Serum or Plasma [facility] Work Phone: Antibody to lupus La protein measurement [facility] Work Phone: Antibody to SS-A measurement [facility] Work Phone: CBC W Auto Different ial panel - Blood [facility] Centromere protein B Ab [Units/volume] in Serum [facility] Work Phone: Ceruloplasmin [Mass/volume] in Serum or Plasma [facility] Work Phone: Chromatin Ab [Units/volume] in Serum or Plasma [facility] Work Phone: Colonoscopy [facility] Copper [Moles/volume ] in Serum or Plasma [facility] Work Phone: DNA double strand Ab [Units/volume] in Serum [facility] Work Phone: Gamma glutamyl transferase measurement [facility] Haptoglobin [Mass/vo lume] in Serum or Plasma [facility] Work Phone: Hepatic function panel [facility] Intestinal alkaline phosphatase measurement [facility] Work Phone: Anaid-1 extractable nuc lear Ab [Units/volume] in Serum [facility] Work Phone: Mitochondria Ab [Presence] in Serum [facility] Work Phone: Neutrophil cytoplasm ic Ab.classic [Units/volume] in Serum [facility] Work Phone: P-ANCA measurement [facility] Work Phone: Patient referral [facility] Work Phone: Prothrombin time [facility] Prothrombin time [facility] SCL-[id number] extractable nuclear Ab [Units/volume] in Serum by Immunoassay [facility] Work Phone: Santacruz extractable nu clear Ab [Presence] in Serum [facility] Work Phone: Smooth muscle Ab [Presence] in Serum [facility] Work Phone: T4 free measurement [facility] Thyroid stimulating hormone measurement [facility] Ultrasound elastography [facility] Work Phone: US Abdomen limited [facility] Work Phone: Vitamin D, 1,25-dihy droxy measurement [facility] Work Phone: [facility] Payers Date Payer Category Payer Self-pay [id number] 2021 Medicare [id number] 2021 Unknown [id number] Self-pay SELF PAY BY PATIENT REQUEST [id number] Unknown [id number] Unknown [id number] Unknown [id number] Unknown [id number] Unknown [id number] Unknown [id number] Unknown [id number] Unknown [id number] Unknown [id number] Unknown [id number] Unknown [id number] Unknown [id number] Social History Date Type Detail [facility] Work Phone: Start: 1950 Sex Assigned At Female [facility] Start: 10-16-2021 End: 05-05-2023 Tobacco smoking status [facility] Unknown if ever smoked [facility] Start: 04-29-2024 [facility] ([facility] Goals Date Patient Goal Desired Activity /State Mental Status Date Assessment Result Facility 05-02-2022 Cognitive function Voice/Name [facility] Work Phone: Evaluation note 12-03-2024 Note Date & Type Note Facility 12-03-2024 Evaluation note Diagnosis Onset Date Resolution GERD (gastroesophageal reflux disease) chronic December 03, 2024 3:20pm Metabolic dysfunction-associated steatotic liver disease (MASLD) chronic December 03, 2024 3:20pm Obesity chronic December 03 3:20pm [facility] Work Phone: Evaluation note 12-03-2024 Note Date & Type Note Facility 12-03-2024 Evaluation note Diagnosis Onset Date Resolution GERD (gastroesophageal reflux disease) chronic December 03, 2024 3:20pm Metabolic dysfunction-associated steatotic liver disease (MASLD) chronic December 03, 2024 3:20pm Obesity chronic December 03 3:20pm Encounter for routine gynecological examination noneactive December 20 9:03am [facility] Work Phone: Radiology Diagnostic study note 11-08-2024 Note Date & Type Note Facility 11-08-2024 Radiology Diagnostic study note [facility] Services [address] [place] [address] ABD Limited w/ Elastography MR#: [id number] Acct: [id number] Name: RACHEL MAY Rep #: [id number] : 1950 F 74 From: Micheal Ponce MD PCP: Dr. Tyron Knight MD Status: RE G CLI Study:ABD Limited w/ Elastography Date of Exa m: 11/08/24 Exam# [id number] Ordering Dr: Torrey Mares MD PROCEDURE: ABD [...] quadrant ascites. US/ABD Limited w/ Elastography IMPRESSION: [id number] degree of hepatic fibrosis. Reference Values: SRU [...] measurement may be in question. Reading Location: [place] [address] CC: Dr. Tyron Knight MD; Dr. Usman Mares MD ~ Information Assurance Engineer: Signed [facility] Evaluation note Note Date & Type Note Facility Evaluation note No assessment information availa ble [facility] Work Phone: Evaluation note Note Date & Type Note Facility Evaluation note Diagnosis Onset Date Elevated LFTs acute [facility] Work Phone: Evaluation note Note Date & Type Note Facility Evaluation note Diagnosis Onset Date Obesity acute Screening for colon cancer a cute Dysphagia chronic STRATTON (nonalcoholic steatohepatitis) chronic Elevated LFTs chronic GERD (gastroesophageal reflux disease) chronic [place] (nonalcoholic steatohepatitis) chronic [facility] Work Phone: Evaluation note Note Date & Type Note Facility Evaluation note Diagnosis Onset Date GERD (gastroesophageal reflux disease) chronic STRATTON (nonalcoholic steatohepatitis) chronic [facility] Work Phone: Evaluation note Note Date & Type Note Facility Evaluation note Diagnosis Onset Date Resolution GERD (gastroesophageal reflux disease) chronic December 03, 2024 3:20pm Metabolic dysfunction-associated steatotic liver disease (MASLD) chronic December 03, 2024 3:20pm Obesity chronic December 03 3:20pm [facility] Work Phone: Reason for referral (narrative) Note Date & Type Note Facility Reason for referral (narrative) No reason for referral information available [facility] Work Phone: Summary Purpose Family History No Family History Records Found Relationship Condition Age at Onset Recorded Date/T nivia aunt Malignant neoplasm of breast Unknown Advance Directives No Advanced Directives Records Found Advance Directive Response Recorded Date/ Time Name of Medical Power of Medical Technologist Microbiology NIC MAY April 30, 2022 2:47pm Living Will Yes April 30 2:47pm Power of Medical Technologist Microbiology Yes April 30, 2 023 2:47pm Advance Directive Response Recorded Date/ Time Living Will Yes April 30 3:47pm Power of Medical Technologist Microbiology Yes April 30, 2 023 3:47pm Advance Directive Response Recorded Date/ Time Living Will Yes April 30 2:47pm Power of Medical Technologist Microbiology Yes April 30 023 2:47pm Advance Directive Response Recorded Date/ Time Living Will Yes May 05 3:10pm Power of Medical Technologist Microbiology Yes May 05 024 3:10pm Chief Complaint and Reason for [...] FINDINGS Chief Complaint WEIGH IN NONALCOHOLIC STEATOHEPATITIS (TSRATTON) SCREENING Amb Documentation ABNORMAL MAMMOGRAM FINDINGS STRATTON Chief Complaint 6 MO FU OVERWEIGHT Reason for Visit GERD (gastroesophage al reflux disease) STRATTON (nonalcoholic steatohepatitis) Chief Complaint Admit Date MASLD, liver fibrosis November 08, 2024 7: 12am Chief Complaint Admit Date MASLD, liver fibrosis November 08, 2024 7: 12am Age-related osteoporosis without current pathologi November 23, 2024 8:49am SCREENING December 01, 2024 8:1 7am 6 M FU December 03, 2024 3:2 0pm Reason for Visit Admit Date GERD (gastroesophageal reflux disease) A ugust 2024 3:20pm Metabolic dysfunction-associ ated steatotic liver disease (MASLD) December 03, 2024 3:20pm Obesity December 03, 2024 3:2 0pm Chief Complaint Admit Date MASLD, liver fibrosis November 08, 2024 7: 12am Age-related osteoporosis without current pathologi November 23, 2024 8:49am SCREENING December 01, 2024 8:1 7am 6 M FU December 03, 2024 3:2 0pm 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) December 20, 2024 9: 03am Reason for Visit Admit Date GERD (gastroesophageal reflux disease) A ugust 2024 3:20pm Metabolic dysfunction-associ ated steatotic liver disease (MASLD) December 03, 2024 3:20pm Obesity December 03, 2024 3:2 0pm Encounter for routine gynecological exam ination December 20, 2024 9:03am Additional Source Comments INFORMATION SOURCE (unrecogn ized section and content) DATE CREATED AUTHOR 10/21/2017 [facility] DATE CREATED AUTHOR AUTHOR'S ORGANIZ ATION 02/21/2025 [facility] Goals (unrecognized section and content) Goals may [...] Provider, Referr ing Provider Active Emilie Robertson DRILL PUNCH OPERATOR, DRILL PUNCH OPERATOR-C Attending Provider Active Team Status: Active Member [...] Usman Mares MD Attending Provider, Referring P [place] Active Team Status: Active Member Role/Relationship Status Dates Dr. Tyron Knight MD Primary Care Provider Active Team Status: Inactive Member Role/Relationship Status Dates Dr. Tyron Knight MD Primary Care Provider Active Start: November 01, 2024 End: November 01, 2024 Dr. Usman Mares MD Attending Provider Active Start: November 01, 2024 End: November 01, 2024 Dr. Usmna Mares MD Referring Provider Active Start: November [...] November 08, 2024 End: November 08, 2024 Team Status: Active Member Role/Relationship Status Dates Dr. Tyron Knight MD Primary Care Provider Active Start: November 23, 2024 Dr. Tyron Knight MD Attending Provider Active Start: November 23, 2024 Dr. Tyron Knight MD Referring Provider Active Start: November 23, 2024 Team Status: Active Member Role/Relationship Status Dates Dr. Tyron Knight MD Primary Care Provider Active Start: December 01, 2024 Dr. Tyron Knight MD Attending Provider Active Start: December 01, 2024 Dr. Tyron Knight MD Referring Provider Active Start: December 01, 2024 Team Status: Inactive Member Role/Relationship Status Dates Dr. Tyron Knight MD Primary Care Provider Active Start: December 03, 2024 End: December 03, 2024 Dr. Tyron Knight MD Referring Provider Active Start: December 03, 2024 End: December 03, 2024 Dr. Usman Mares MD Attending Provider Active Start: December 03, 2024 End: December 03, 2024 Team Status: Inactive Member Role/Relationship Status Dates Dr. Tyron Knigth MD Primary Care Provider Active Start: December 01, 2024 End: December 01, 2024 Dr. Tyron Knight MD Attending Provider Active Start: December 01, 2024 End: December 01, 2024 Dr. Tyron Knight MD Referring Provider Active Start: December 01, 2024 End: December 01, 2024 Team Status: Inactive Member Role/Relationship Status Dates Dr. Tyron Knight MD Primary Care Provider Active Start: November 23, 2024 End: November 23, 2024 Dr. Tyron Knight MD Attending Provider Active Start: November 23, 2024 End: November 23, 2024 Dr. Tyron Knight MD Referring Provider Active Start: November 23, 2024 End: November 23, 2024 Team Status: Inactive Member Role/Relationship Status Dates Dr. Tyron Knight MD Primary Care Provider Active Start: December 20, 2024 End: December 20, 2024 Dr. Tyron Knight MD Referring Provider Active Start: December 20, 2024 End: December 20, 2024 Doris Maria NP, HOA-C Attending Provider Active Start: December 20, 2024 End: December 20, 2024 FOR RECORDS PERTAINING TO PATIENTS WHO [...] BE BASED ON THE PRIMARY CLINICAL RECORDS. [facility]. provides no warranty or guarantee of the accuracy or completeness of information in this document.
[2025-03-28 08:59] LABS: Prothrombin Time (Protime)PT. 13.2 SECONDS (11.7-14.9)
[2025-03-28 09:16] LABS: AST(SGOT) 111 U/L (<=31); Alanine Aminotransfer ALT/SGPT 182 U/L (<=34); Albumin, Serum 4.0 g/dL (3.4-4.8); Alkaline Phosphatase 261 U/L (35-104); Bilirubin, Direct 0.31 mg/dL (0.00-0.30); Globulin 2.9 g/dL (2.2-4.2); LDH 266 U/L (84-246)
[2025-03-29 15:08] LABS: GGTP 253 IU/L (0-60); IgG, Quant 1306 mg/dL (586-1602); Immunoglobulin G, Subclass 1 479 mg/dL (248-810); Immunoglobulin G, Subclass 2 532 mg/dL (130-555); Immunoglobulin G, Subclass 3 36 mg/dL (15-102); Immunoglobulin G, Subclass 4 114 mg/dL (2-96)
== END | disposition home or self-care (01) ==
LOC: LAB 07:34
PROVIDERS: PCP Family Medicine; Referring Provider Internal Medicine; Visit Provider Internal Medicine
DX: K76.0 Fatty (change of) liver, not elsewhere classified (principal); R73.03 Prediabetes; R79.89 Other specified abnormal findings of blood chemistry; K21.00 Gastro-esophageal reflux disease with esophagitis, without bleeding
CPT/HCPCS: 36415; 80076; 82784; 82787; 82977; 83615; 84439; 84443; 85610

== ENCOUNTER → 2025-04-12 | Outpatient (CLI) | payer MEDICARE, OTHER, SELFPAY ==
[2025-04-12] VITALS (7 sets, daily range): BP systolic 141–151; BP diastolic 42–91; PULSE 65–75; RESP 16; TEMP 36.4; O2SAT 99–100; BMI 27.1
--- NOTE | 2025-04-12 08:47 | US_ITS ---
PROCEDURE: ABD LIMITED W/ ELASTOGRAPHY REASON FOR EXAM: ELEVATED LFT COMPARISON: None. TECHNIQUE: Procedure Code: [id number] Modality: US Procedure: ABD LIMITED W/ ELASTOGRAPHY Right upper quadrant abdominal ultrasound. Sofi ElastQ Imaging shear wave elastography for non-invasive assessment of liver tissue stiffness. Sofi EPIQ Elite. FINDINGS: LIVER: Size: Unremarkable Length: 13.9 cm Echotexture: Normal Contour: Normal Lesions: None identified Elastography: EQI Med: 4.5 kPa EQI Med Steve: 1.2 m/s IQR/Med: 13.3 %* GALLBLADDER: Normal COMMON BILE DUCT: Normal measuring 4.8 mm. PANCREAS: Normal Visualized portions of the right kidney are unremarkable. No right upper quadrant ascites. Spleen: The spleen measures 10.8 cm 2.1 cm 2.5 cm. US/ABD Limited w/ Elastography IMPRESSION: No hepatic fibrosis. Reference Values: SRU <1.37 m/s (5.7kPa): No to mild fibrosis 1.37 m/s - 2.2 m/s: Moderate to severe fibrosis >2.2 m/s (15kPa): Significant fibrosis / cirrhosis METAVIR Score F2 or higher: 1.34 m/s (5.7kPa) F3 or higher: 1.55 m/s (7.3kPa) F4: 1.80 m/s (10kPa) * If the IQR/Med is >30%, the variance in the measurements is a large and the a ccuracy of the measurement may be in question. Reading Location: [id number]
--- NOTE | 2025-04-12 08:47 | US_ITS ---
PROCEDURE: LIVER BIOPSY ULTRASOUND 04/12/2025 REASON FOR EXAM: AUTOIMMUNE HEPATITIS PROCEDURE: Procedure Code: [id number] Modality: US Procedure: LIVER BIOPSY ULTRASOUND Following informed consent, and using standard sterile technique, an ultrasound- guided left hepatic core biopsy was performed. 2% lidocaine local anesthesia was followed by placement of a Hi-Midiat 10 cm 18 gauge core biopsy system. 3 core samples were then obtained. There were no immediate complications. US/Liver Biopsy Ultrasound IMPRESSION: Successful ultrasound-guided left hepatic core biopsy. Pathology results cierra garcia. Reading Location: [place] [id number]
[2025-04-12 08:51] LABS: Hematocrit 47.0 % (37-47); Hemoglobin 15.6 g/dL (12.0-15.0); Immature Granulocytes Count 0.010 X10^3/uL (0.0-0.0); Mean Corp Hgb Conc 33.2 g/dL (32-36); Mean Corpuscular Volume 91.6 fL (81-99); Mean Platelet Vol. 9.8 fl (6.2-12.0); NRBC Flagged by Analyzer 0 % (0-5); Platelet Count 263 K/mm3 (150-450); RBC Distribution Width CV 12.4 % (11.6-14.6); RBC Distribution Width SD 41.9 fl (35.1-43.9); Red Blood Count 5.13 M/mm3 (4.2-5.4); White Blood Count 5.6 K/mm3 (4.4-11.0)
[2025-04-12 09:01] LABS: Prothrombin Time (Protime)PT. 13.8 SECONDS (11.7-14.9)
[2025-04-12 09:02] LABS: Partial Thromboplast Time 24.0 Seconds (24.1-36.2)
--- OUTSIDE RECORDS SUMMARY | 2025-04-12 09:04 | XMS RPT_ITS | CCD ---
Author Organization [facility] [employer]ini[employer]ok Care Team Providers Care Senior Research Engineer Name Role Phone THORPE, TY (GAS METER CHECKER) Unavailable Unavailable ROSS, RYAN Unavailable Unavailable ROSS, RYAN Unavailable Unavailable THORPE, TY (GAS METER CHECKER) Unavailable Unavailable THORPE, TY (GAS METER CHECKER) Unavailable Unavailable ROSS, RYAN Unavailable Unavailable Dr. Tyron Knight Primary Care Provider [phone] Dr. Tyron Knight Referring Provider FriendDr. Marte Attending Provider Dr. Tyron Knight Primary Care Provider Dr. Tyron Knight Referring Provider [phone] Estuardo Anand Attending Provider 1([facility])[phone] Dr. Estuardo Anand Other Provider 1([facility])[phone] MD Tyron Knight Referring Provider Unavailable Marcelo GAS METER CHECKER, GAS METER CHECKER-C Emilie Gale Attending Provider [phone] Dr. Tyron Knight Primary Care Provider Dr. Tyron Knight Referring Provider Dr. Estuardo Anand Attending Provider Phoebe Boyd Attending Provider Dr. Tyron Jerome Primary Care Provider Dr. Tyron Knight Referring Provider Dr. Usman Mares Attending Provider [phone]([facility])[phone] Dr. Tyron Knight MD Primary Care Provider Dr. Usman Mares MD Attending Provider Dr. Usman Mares MD Referring Provider Antonia ROLDAN, Dr. Tyron Luna Attending Provider [phone] Antonia ROLDAN, Dr. Tyron Luna Referring Provider Crow GAS METER CHECKER-CDoris Attending Provider CrowDoris salgado NP Attending Unavailable Schinner, Tyron E [...] Translations: [PHENYTOIN SODIUM EXTENDED] Drug Allergy 06-30-2006 [facility] Repository (18 sources) trimethoprim; Translations: [TRIMETHOPRIM] Drug Allergy 06-30-2006 [facility] Repository (16 sources) Phenytoin Drug Allergy 10-16-2021 [facility] (1 source) Phenytoin Drug Allergy 12-20-2024 [facility] Repository Medications Current Medications Medication Drug [...] L3410.9992on 02-19-2025 [facility] Misc. COMMENT Normal . [facility] Comment on above: Order Comment: 93141 2 PBC profile SERUM POUR OFF RF Result Comment: Test Ordered: [id number] Primary Biliary Cholangitis Pr Anti-Nuclear Ab by IFA (RDL) Positive [A ] ESECF Reference Range: Negative Homogeneous Pattern 1:320 [H ] ESECF Reference Range: <1:40 Nucleolar Pattern GAS METER CHECKER NOLAB Reference Range: . Speckled Pattern 1:320 [H ] ESECF Reference Range: <1:40 Centromere Pattern GAS METER CHECKER NOLAB Reference Range: . Spindle Apparatus Pattern GAS METER CHECKER NOLAB Reference Range: . Nuclear Membrane Pattern GAS METER CHECKER NOLAB Reference Range: . Midbody Pattern GAS METER CHECKER NOLAB Reference Range: . Nuclear Dot Pattern GAS METER CHECKER NOLAB Reference Range: . PCNA Pattern GAS METER CHECKER NOLAB Reference Range: . Centriole Pattern GAS METER CHECKER NOLAB Reference Range: . Note: Comment ESECF [...] ] ESECF Reference Range: <1:20 Performed at: [facility] [employer] [address] [place] [id number] Wire Harness Design Engineer: Edgar Black MD, Phone: [phone] Performed at: [facility] [address] [id number] Wire Harness Design Engineer: Varun Jo PhD, Phone: [phone] Performed By: #### L 3460.9992 #### [facility] [address] [place], [place], [id number] ALK Phos Isoenzymeon 10-10-2 025 ALK PHOS, S 175 IU/L High 49-135 [facility] Comment on above: Performed By: #### L 617.7674, L503.9328, L501.7885, L503.7650 #### [facility] [address] [place], [place], [id number] BONE FRACTION 34 Normal 14-68 [facility] Comment on above: Performed By: #### L 503.6075, L503.6550, L501.9985, L503.6150 #### [facility] [address] [place], [address] INTESTINAL FRAC 0 Normal 0-18 [facility] Comment on above: Performed By: #### L 503.6075, L503.6550, L501.9985, L503.6150 #### [facility] [address] [place], [address] LIVER FRACTION 66 Normal 18-85 [facility] Comment on above: Performed By: #### L 503.6075, L503.6550, L501.9985, L503.6150 #### [facility] [address] [place], [address] L501.5101on 02-04-2025 GGTP 126 IU/L Abnormal 0-60 [facility] Comment on above: Result Comment: Perf ormed at: - [facility] [address] [id number] Wire Harness Design Engineer: Varun Jo PhD, Phone: [phone] Performed By: #### L 503.6075, L503.6550, L501.9985, L503.6150 #### [facility] [address] [place], [address] Liver Profileon 02-03-2025 Albumin [Mass/Vol] 4.1 g/dL Normal 3.4-4.8 [facility] Comment on above: Performed By: #### L 503.6075, L503.6550, L501.9985, L503.6150 #### [facility] [address] [place], [address] ALK PHOS 170 U/L High 35-104 [facility] Comment on above: Performed By: #### L 503.6075, L503.6550, L501.9985, L503.6150 #### [facility] [address] [place], [address] ALT [Catalytic activity/Vol] 50 U/L High <=34 [facility] Comment on above: Performed By: #### L 503.6075, L503.6550, L501.9985, L503.6150 #### [facility] [address] [place], [address] AST [Catalytic activity/Vol] 41 U/L High <=31 [facility] Comment on above: Performed By: #### L 503.6075, L503.6550, L501.9985, L503.6150 #### [facility] [address] [place], [address] Bilirubin [Mass/Vol] 0.64 mg/dL Normal 0.00-1.30 [facility] Comment on above: Performed By: #### L 503.6075, L503.6550, L501.9985, L503.6150 #### [facility] [address] [place], [address] Bilirubin.direct [Mass/Vol] 0.28 mg/dL Normal 0.00-0.30 [facility] Comment on above: Performed By: #### L 503.6075, L503.6550, L501.9985, L503.6150 #### [facility] [address] [place], [address] Globulin (S) [Mass/Vol] 2.9 g/dL Normal 2.2-4.2 [facility] Comment on above: Performed By: #### L 503.6075, L503.6550, L501.9985, L503.6150 #### [facility] [address] [place], [address] T PROT 6.9 g/dL Normal 5.9-8.4 [facility] Comment on above: Performed By: #### L 503.6075, L503.6550, L501.9985, L503.6150 #### [facility] [address] [place], [place], [address] Prothrombin Time w/INRon INR Coag (PPP) [Relative time] 1.1 {INR} Normal [facility] Comment on above: Performed By: #### L 503.6075, L503.6550, L501.9985, L503.6150 #### [facility] [address] [place], [address] PT Coag (PPP) [Time] 14.0 s Normal 11.7-14.9 [facility] Comment on above: Performed By: #### L 503.6075, L503.6550, L501.9985, L503.6150 #### [facility] [address] 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 Last PAP: na History of abnormal [...] Z01.419 Gynecol (more content not included)... Normal [facility] Gastroenterology Visit Repor ton 12-03-2024 Gastroenterology Visit Report [facility] [address] [place] [address] OFFICE VISIT Date of Service: 12/03/24 MR#: [id number] Acct: [id number] Name: RACHEL MAY Rep #: [id number] : 1950 Provider: Dr. Usman kaplan MD Age/Sex: 74/F [place] [facility] Status: Signed with Addenda ADDENDUM by Dr. [...] Initially noted when she first saw her foster care therapist, Dr. Calloway; then established with [facility] for osteoarthritis who did not feel [...] lesions in (more content not included)... Normal [facility] Breast imaging reportOrdered By: Marielena Esparza on 12-01-2024 Study report [facility] Services [address] [place], [place] [address] SCRN MAMM (CAD)W/CARMINA BILAT MR#: [id number] Acct: [id number] Name: RACHEL MAY Rep #: [id number] : 1950 F 74 From: Briseida Esparza MD PCP: Dr. Tyron Knight MD Status: RE G CLI Study:SCRN MAMM (CAD)W/CARMINA BILAT Date of Exa m: 12/01/24 Exam# [id number] Ordering Dr: Tyron Knight MD EXAM: SCRN [...] be mailed to the patient. Reading Location: [facility] CC: Dr. Tyron Knight MD ~ Pulmonology Physician: Signed [facility] SCRN MAMM (CAD)W/CARMINA BILATo n 12-01-2024 SCRN MAMM (CAD)W/CARMINA BILAT [facility] Services [address] [place] [address] SCRN MAMM (CAD)W/CARMINA BILAT MR#: [id number] Acct: [id number] Name: RACHEL MAY Rep #: [id number] : 1950 F 74 From: Marielena Esparza MD PCP: Dr. Tyron Knight MD Status: [facility] Study: SCRN MAMM (CAD)W/CARMINA BILAT Date of Exam: 10/20 Exam# [id number] Ordering Dr: Tyron Knight MD EXAM: SCRN [...] be mailed to the patient. Reading Location: [id number] CC: Dr. Tyron Knight MD Pulmonology Physician: Signed Normal [facility] Bone density reportOrdered B y: Bandar Kris on 11-23-2024 Study report Skeletal system DXA [facility] [address] [place], [place] [address] Dexa Bone Density Study MR#: [id number] Acct: [id number] Name: RACHEL MAY Rep #: [id number] : 1950 F 74 From: Micheal Ponce MD PCP: Dr. Tyron Knight MD Status: RE G CLI Study:Dexa Bone Density Study Date of Exam: 11/23/24 Exam# [id number] Ordering Dr: Tyron Knight MD PROCEDURE: DEXA [...] Recommend follow-up as clinically warranted. Reading Location: [id number] CC: Dr. Tyron Knight MD ~ Pulmonology Physician: Signed [facility] Dexa Bone Density Studyon Dexa Bone Density Study [facility] Imaging Services [address] [place] [id number] Dexa Bone Density Study MR#: [id number] Acct: [id number] Name: RACHEL MAY Rep #: [id number] : 1950 F 74 From: Bandar yung MD PCP: Dr. Tyron Knight MD Status: REG CLI Study: Dexa Bone Density Study Date of Exam: 11/23/24 Exam# [id number] Ordering Dr: Tyron Knight MD PROCEDURE: DEXA [...] Recommend follow-up as clinically warranted. Reading Location: XHN-SLEJBBUIN-O CC: Dr. Tyron Knight MD Pulmonology Physician: Signed Normal [facility] ABD Limited w/ Elastographyo n 11-08-2024 ABD Limited w/ Elastography [facility] [address] [place] [address] ABD Limited w/ Elastography MR#: [id number] Acct: [id number] Name: RACHEL MAY Rep #: [id number] : 1950 F 74 From: Bandar yung MD PCP: Dr. Tyron Knight MD Status: REG CLI Study: ABD Limited w/ Elastography Date of Exam: 10/26 08/20 Exam# [id number] Ordering Dr: Usman Mares MD PROCEDURE: ABD [...] quadrant ascites. US/ABD Limited w/ Elastography IMPRESSION: Urrc-dm-fgwycdlt degree of hepatic fibrosis. Reference Values: SRU [...] measurement may be in question. Reading Location: [place] [address] CC: Dr. Tyron Knight MD; Dr. Usman Mares MD Pulmonology Physician: Signed Normal [facility] Absolute lymphocyte countOrd ered By: Usman Mares on 11-01-2024 Lymphocytes Auto (Unsp spec) [#/Vol] 1.44 10*3/uL 0.83-4.51 [facility] Absolute neutrophil countOrd ered By: Usman Mares on 11-01-2024 Neutrophils (Bld) [#/Vol] 1.6 10*3/uL Low 2.0-7.7 [facility] Anion gap in Serum or Plasma Ordered By: Usman Mares on 11-01-2024 Anion gap [Moles/Vol] 10 mmol/L 5-15 [facility] Automated lymphocyte count a s percentage of total leukocytesOrdered By: Usman Mares on 11-01-2024 Lymphocytes/100 WBC Auto (Unsp spec) 36.8 % 19-41 [facility] BUN/creatinine ratioOrdered By: Usman Mares on 11-01-2024 Urea nitrogen/Creatinine [Mass ratio] 19.1 mg/mg 10-20 [facility] Basophil percentageOrdered B y: Usman Mares on 11-01-2024 Basophils/100 WBC (Bld) 1.5 % High 0-1 [facility] Bilirubin, totalOrdered By: Usman Mares on 11-01-2024 Bilirubin [Mass/Vol] 0.60 mg/dL 0.00-1.30 [facility] CBC W/Diff, Automatedon Absolute Lymph 1.44 X10 3/uL Normal 0.83-4.51 [facility] Comment on above: Order Comment: SEND CBCD,CMP,TSH,FT4 TO Performed By: #### L 268.5747, L100.0100, L300.3900, L506.0400, L501.9520, L501.9985, L501.6710 ####[facility] [address] [place], [place], [id number] Absolute Neut 1.6 X10 3/uL Low 2.0-7.7 [facility] Comment on above: Order Comment: SEND CBCD,CMP,TSH,FT4 TO Performed By: #### L 500.4050, L100.0100, L300.3900, L506.0400, L501.9520, L501.9985, L501.6710 ####[facility] [address] [place], [address] Basophils/100 WBC (Bld) 1.5 % High 0-1 [facility] Comment on above: Order Comment: SEND CBCD,CMP,TSH,FT4 TO Performed By: #### L 500.4050, L100.0100, L300.3900, L506.0400, L501.9520, L501.9985, L501.6710 ####[facility] [address] [facility] [place], [address] Eosinophils/100 WBC (Bld) 4.6 % Normal 0-5 [facility] Comment on above: Order Comment: SEND CBCD,CMP,TSH,FT4 TO Performed By: #### L 500.4050, L100.0100, L300.3900, L506.0400, L501.9520, L501.9985, L501.6710 ####[facility] [address] [place], [address] Erythrocyte distribution width (RBC) [Ratio] 12.3 % Normal 11.6-14.6 [facility] Comment on above: Order Comment: SEND CBCD,CMP,TSH,FT4 TO Performed By: #### L 500.4050, L100.0100, L300.3900, L506.0400, L501.9520, L501.9985, L501.6710 ####[facility] [address] [facility] [place], [address] Hematocrit (Bld) [Volume fraction] 44.8 % Normal 37-47 [facility] Comment on above: Order Comment: SEND CBCD,CMP,TSH,FT4 TO Performed By: #### L 500.4050, L100.0100, L300.3900, L506.0400, L501.9520, L501.9985, L501.6710 ####[facility] [address] [place], [address] Hemoglobin (Bld) [Mass/Vol] 15.5 g/dL High 12.0-15.0 [facility] Comment on above: Order Comment: SEND CBCD,CMP,TSH,FT4 TO Performed By: #### L 500.4050, L100.0100, L300.3900, L506.0400, L501.9520, L501.9985, L501.6710 ####[facility] [address] [place], [address] IG% 0.000 Normal 0.0-0.9 [facility] Comment on above: Order Comment: SEND CBCD,CMP,TSH,FT4 TO Result Comment: IG% - Immature Granulocytes (promyelocytes, myelocytes and metamyelocytes) > 1% indicates that a LEFT SHIFT is Present. Performed By: #### L 500.4050, L100.0100, L300.3900, L506.0400, L501.9520, L501.9985, L501.6710 ####[facility] [address] [place], [address] Lymphocytes/100 WBC (Bld) 36.8 % Normal 19-41 [facility] Comment on above: Order Comment: SEND CBCD,CMP,TSH,FT4 TO Performed By: #### L 500.4050, L100.0100, L300.3900, L506.0400, L501.9520, L501.9985, L501.6710 ####[facility] [address] [place], [address] MCH (RBC) [Entitic mass] 30.5 pg Normal 27.0-32.0 [facility] Comment on above: Order Comment: SEND CBCD,CMP,TSH,FT4 TO Performed By: #### L 500.4050, L100.0100, L300.3900, L506.0400, L501.9520, L501.9985, L501.6710 ####[facility] [address] [place], [address] MCHC (RBC) [Mass/Vol] 34.6 g/dL Normal 32-36 [facility] Comment on above: Order Comment: SEND CBCD,CMP,TSH,FT4 TO Performed By: #### L 500.4050, L100.0100, L300.3900, L506.0400, L501.9520, L501.9985, L501.6710 ####[facility] [address] [facility] [place], [address] MCV (RBC) [Entitic vol] 88.0 fL Normal 81-99 [facility] Comment on above: Order Comment: SEND CBCD,CMP,TSH,FT4 TO Performed By: #### L 500.4050, L100.0100, L300.3900, L506.0400, L501.9520, L501.9985, L501.6710 ####[facility] [address] [place], [address] Monocytes/100 WBC (Bld) 15.6 % High 0-10 [facility] Comment on above: Order Comment: SEND CBCD,CMP,TSH,FT4 TO Performed By: #### L 500.4050, L100.0100, L300.3900, L506.0400, L501.9520, L501.9985, L501.6710 ####[facility] [address] [facility] [place], [address] Neutrophils/100 WBC (Bld) 41.5 % Low 47-70 [facility] Comment on above: Order Comment: SEND CBCD,CMP,TSH,FT4 TO Performed By: #### L 500.4050, L100.0100, L300.3900, L506.0400, L501.9520, L501.9985, L501.6710 ####[facility] [address] [place], [address] Nucleated RBC (Bld) [#/Vol] 0 10*3/uL Normal 0-5 [facility] Comment on above: Order Comment: SEND CBCD,CMP,TSH,FT4 TO Performed By: #### L 500.4050, L100.0100, L300.3900, L506.0400, L501.9520, L501.9985, L501.6710 ####[facility] [address] [place], [address] Platelet mean volume (Bld) [Entitic vol] 10.7 fL Normal 6.2-12.0 [facility] Comment on above: Order Comment: SEND CBCD,CMP,TSH,FT4 TO Performed By: #### L 500.4050, L100.0100, L300.3900, L506.0400, L501.9520, L501.9985, L501.6710 ####[facility] [address] [place], [address] Platelets (Bld) [#/Vol] 227 10*3/uL Normal 150-450 [facility] Comment on above: Order Comment: SEND CBCD,CMP,TSH,FT4 TO Performed By: #### L 500.4050, L100.0100, L300.3900, L506.0400, L501.9520, L501.9985, L501.6710 ####[facility] [address] [place], [address] RBC (Bld) [#/Vol] 5.09 10*6/uL Normal 4.2-5.4 [facility] Comment on above: Order Comment: SEND CBCD,CMP,TSH,FT4 TO Performed By: #### L 500.4050, L100.0100, L300.3900, L506.0400, L501.9520, L501.9985, L501.6710 ####[facility] [address] [place], [address] RDW SD 39.5 fl Normal 35.1-43.9 [facility] Comment on above: Order Comment: SEND CBCD,CMP,TSH,FT4 TO Performed By: #### L 500.4050, L100.0100, L300.3900, L506.0400, L501.9520, L501.9985, L501.6710 ####[facility] [address] [place], [address] WBC (Bld) [#/Vol] 3.9 10*3/uL Low 4.4-11.0 [facility] Comment on above: Order Comment: SEND CBCD,CMP,TSH,FT4 TO Performed By: #### L 500.4050, L100.0100, L300.3900, L506.0400, L501.9520, L501.9985, L501.6710 ####[facility] [address] [place], [address] Absolute Neut Normal 2.0-7.7 [facility] Comment on above: Order Comment: Order Date: 10/28/24Order Info: 0184-1 - CBCD Result Comment: DUP Performed By: #### L 100.0100, L500.4100 ####[facility] [address] [place], [address] HCT Normal 37-47 [facility] Comment on above: Order Comment: Order Date: 10/28/24Order Info: 0184-1 - CBCD Result Comment: DUP Performed By: #### L 100.0100, L500.4100 ####[facility] [address] [place], [address] HGB Normal 12.0-15.0 [facility] Comment on above: Order Comment: Order Date: 10/28/24Order Info: 0184-1 - CBCD Result Comment: DUP Performed By: #### L 100.0100, L500.4100 ####[facility] [address] [place], [address] MCH Normal 27.0-32.0 [facility] Comment on above: Order Comment: Order Date: 10/28/24Order Info: 0184-1 - CBCD Result Comment: DUP Performed By: #### L 100.0100, L500.4100 ####[facility] [address] [place], [address] MCHC Normal 32-36 [facility] Comment on above: Order Comment: Order Date: 10/28/24Order Info: 0184-1 - CBCD Result Comment: DUP Performed By: #### L 100.0100, L500.4100 ####[facility] [address] [place], [address] MCV Normal 81-99 [facility] Comment on above: Order Comment: Order Date: 10/28/24Order Info: 0184-1 - CBCD Result Comment: DUP Performed By: #### L 100.0100, L500.4100 ####[facility] [address] [place], [address] NEUT% Normal 47-70 [facility] Comment on above: Order Comment: Order Date: 10/28/24Order Info: 0184-1 - CBCD Result Comment: DUP Performed By: #### L 100.0100, L500.4100 ####[facility] [address] [place], [address] PLT Normal 150-450 [facility] Comment on above: Order Comment: Order Date: 10/28/24Order Info: 0184-1 - CBCD Result Comment: DUP Performed By: #### L 100.0100, L500.4100 ####[facility] [address] [place], [address] RBC Normal 4.2-5.4 [facility] Comment on above: Order Comment: Order Date: 10/28/24Order Info: 0184-1 - CBCD Result Comment: DUP Performed By: #### L 100.0100, L500.4100 ####[facility] [address] [place], [address] RDW CV Normal 11.6-14.6 [facility] Comment on above: Order Comment: Order Date: 10/28/24Order Info: 0184-1 - CBCD Result Comment: DUP Performed By: #### L 100.0100, L500.4100 ####[facility] [address] [place], [address] RDW SD Normal 35.1-43.9 [facility] Comment on above: Order Comment: Order Date: 10/28/24Order Info: 0184-1 - CBCD Result Comment: DUP Performed By: #### L 100.0100, L500.4100 ####[facility] [address] [place], [address] WBC Normal 4.4-11.0 [facility] Comment on above: Order Comment: Order Date: 10/28/24Order Info: 0184-1 - CBCD Result Comment: DUP Performed By: #### L 100.0100, L500.4100 ####[facility] [address] [place], [address] CRPon 11-01-2024 C-REACTIVE PROT < 3.00 Normal 0.0-3.0 [facility] Comment on above: Order Comment: SEND CBCD,CMP,TSH,FT4 TO Performed By: #### L 500.4050, L100.0100, L300.3900, L506.0400, L501.9520, L501.9985, L501.6710 ####[facility] [address] [place], [place], [id number] Calculated very low density lipoprotein (VLDL) cholesterol measurementOrdered By: Tyron Knight on 11-01-2024 Calculated very low density lipoprotein (VLDL) cholesterol measurement 12 mg/dL 5-40 [facility] Carbon dioxide, total [Moles /volume] in Central venous bloodOrdered By: Usman Mares on 11-01-2024 CO2 [Moles/Vol] 24.6 mmol/L 21.0-32.0 [facility] Chloride assayOrdered By: Torrey Mares on 11-01-2024 Chloride [Moles/Vol] 105 mmol/L 98-108 [facility] Comprehensive Metabolic Prof ilon 11-01-2024 Albumin [Mass/Vol] 4.0 g/dL Normal 3.4-4.8 [facility] Comment on above: Order Comment: SEND CBCD,CMP,TSH,FT4 TO Performed By: #### L 500.4050, L100.0100, L300.3900, L506.0400, L501.9520, L501.9985, L501.6710 ####[facility] [address] [facility] [place], [place], [id number] Albumin/Globulin [Mass ratio] 1.3 {ratio} Normal 0.9-2.4 [facility] Comment on above: Order Comment: SEND CBCD,CMP,TSH,FT4 TO Performed By: #### L 500.4050, L100.0100, L300.3900, L506.0400, L501.9520, L501.9985, L501.6710 ####[facility] [address] [place], [id number] ALK PHOS 194 U/L High 35-104 [facility] Comment on above: Order Comment: SEND CBCD,CMP,TSH,FT4 TO Performed By: #### L 500.4050, L100.0100, L300.3900, L506.0400, L501.9520, L501.9985, L501.6710 ####[facility] [address] [place], [address] ALT [Catalytic activity/Vol] 51 U/L High <=34 [facility] Comment on above: Order Comment: SEND CBCD,CMP,TSH,FT4 TO Performed By: #### L 500.4050, L100.0100, L300.3900, L506.0400, L501.9520, L501.9985, L501.6710 ####[facility] [address] [place], [place], [phone] AST [Catalytic activity/Vol] 48 U/L High <=31 [facility] Comment on above: Order Comment: SEND CBCD,CMP,TSH,FT4 TO Performed By: #### L 500.4050, L100.0100, L300.3900, L506.0400, L501.9520, L501.9985, L501.6710 ####[facility] [address] [place], [place], [phone] Bilirubin [Mass/Vol] 0.60 mg/dL Normal 0.00-1.30 [facility] Comment on above: Order Comment: SEND CBCD,CMP,TSH,FT4 TO Performed By: #### L 500.4050, L100.0100, L300.3900, L506.0400, L501.9520, L501.9985, L501.6710 ####[facility] [address] [place], [place], [phone] BUN/CRE 19.1 RATIO Normal 10-20 [facility] Comment on above: Order Comment: SEND CBCD,CMP,TSH,FT4 TO Performed By: #### L 500.4050, L100.0100, L300.3900, L506.0400, L501.9520, L501.9985, L501.6710 ####[facility] [address] [place], [address] Calcium [Mass/Vol] 9.3 mg/dL Normal 7.6-11.0 [facility] Comment on above: Order Comment: SEND CBCD,CMP,TSH,FT4 TO Performed By: #### L 500.4050, L100.0100, L300.3900, L506.0400, L501.9520, L501.9985, L501.6710 ####[facility] [address] [place], [address] Chloride [Moles/Vol] 105 mmol/L Normal 98-108 [facility] Comment on above: Order Comment: SEND CBCD,CMP,TSH,FT4 TO Performed By: #### L 500.4050, L100.0100, L300.3900, L506.0400, L501.9520, L501.9985, L501.6710 ####[facility] [address] [place], [address] CO2 [Moles/Vol] 24.6 mmol/L Normal 21.0-32.0 [facility] Comment on above: Order Comment: SEND CBCD,CMP,TSH,FT4 TO Performed By: #### L 500.4050, L100.0100, L300.3900, L506.0400, L501.9520, L501.9985, L501.6710 ####[facility] [address] [place], [address] Creatinine [Mass/Vol] 0.76 mg/dL Normal 0.70-1.20 [facility] Comment on above: Order Comment: SEND CBCD,CMP,TSH,FT4 TO Performed By: #### L 500.4050, L100.0100, L300.3900, L506.0400, L501.9520, L501.9985, L501.6710 ####[facility] [address] [place], [address] GAP 10 Normal 5-15 [facility] Comment on above: Order Comment: SEND CBCD,CMP,TSH,FT4 TO Performed By: #### L 500.4050, L100.0100, L300.3900, L506.0400, L501.9520, L501.9985, L501.6710 ####[facility] [address] [place], [place], [phone] GFR/1.73 sq M.predicted among non-blacks MDRD (S/P/Bld) [Vol rate/Area] 83 mL/min/{1.73_m2} Normal >60 [facility] Comment on above: Order Comment: SEND CBCD,CMP,TSH,FT4 TO Result Comment: mL/m in/1.73m2 CKD-EPI Creatinine Equation (2020) Performed By: #### L 500.4050, L100.0100, L300.3900, L506.0400, L501.9520, L501.9985, L501.6710 ####[facility] [address] [place], [address] Globulin (S) [Mass/Vol] 3.0 g/dL Normal 2.2-4.2 [facility] Comment on above: Order Comment: SEND CBCD,CMP,TSH,FT4 TO Performed By: #### L 500.4050, L100.0100, L300.3900, L506.0400, L501.9520, L501.9985, L501.6710 ####[facility] [address] [place], [place], [phone] Glucose [Mass/Vol] 96 mg/dL Normal 70-99 [facility] Comment on above: Order Comment: SEND CBCD,CMP,TSH,FT4 TO Performed By: #### L 500.4050, L100.0100, L300.3900, L506.0400, L501.9520, L501.9985, L501.6710 ####[facility] [address] [place], [address] Potassium [Moles/Vol] 4.1 mmol/L Normal 3.3-5.1 [facility] Comment on above: Order Comment: SEND CBCD,CMP,TSH,FT4 TO Performed By: #### L 500.4050, L100.0100, L300.3900, L506.0400, L501.9520, L501.9985, L501.6710 ####[facility] [address] [place], [address] Sodium [Moles/Vol] 140 mmol/L Normal 133-145 [facility] Comment on above: Order Comment: SEND CBCD,CMP,TSH,FT4 TO Performed By: #### L 500.4050, L100.0100, L300.3900, L506.0400, L501.9520, L501.9985, L501.6710 ####[facility] [address] [place], [address] T PROT 7.0 g/dL Normal 5.9-8.4 [facility] Comment on above: Order Comment: SEND CBCD,CMP,TSH,FT4 TO Performed By: #### L 500.4050, L100.0100, L300.3900, L506.0400, L501.9520, L501.9985, L501.6710 ####[facility] [address] [place], [address] Urea nitrogen [Mass/Vol] 15 mg/dL Normal 4-19 [facility] Comment on above: Order Comment: SEND CBCD,CMP,TSH,FT4 TO Performed By: #### L 500.4050, L100.0100, L300.3900, L506.0400, L501.9520, L501.9985, L501.6710 ####[facility] [address] [place], [address] Eosinophil percentageOrdered By: Usman Mares on 11-01-2024 Eosinophils/100 WBC (Bld) 4.6 % 0-5 [facility] Erythrocyte distribution wid th ratioOrdered By: Usman Mares on 11-01-2024 Erythrocyte distribution width (RBC) [Ratio] 12.3 % 11.6-14.6 [facility] Erythrocyte distribution wid th standard deviationOrdered By: Usman Mares on 11-01-2024 Erythrocyte distribution width (RBC) [Ratio] 39.5 fl 35.1-43.9 [facility] Ferritinon 11-01-2024 Ferritin [Mass/Vol] 223 ng/mL Normal 22-378 [facility] Comment on above: Order Comment: PLEALONSO Luna AD TO BLOOD DONE ON 06/08/24 Performed By: #### L 503.6075, L503.6550, L501.9985, L503.6150 #### [facility] [address] [place], [place], [phone] Glomerular filtration rate ( GFR) estimation/1.73 sq m using serum, plasma, or whole bOrdered By: Usman Mares on 11-01-2024 GFR/1.73 sq M.predicted among non-blacks MDRD (S/P/Bld) [Vol rate/Area] 83 mL/min/{1.73_m2} >60 [facility] Comment on above: mL/min/1.73m2 CKD-EP I Creatinine Equation (2020) Hematocrit Auto (Bld) [Volum e fraction]Ordered By: Usman Mares on 11-01-2024 Hematocrit (Bld) [Volume fraction] 44.8 % 37-47 [facility] Hemoglobin A1con 07-07-2025 HbA1c (Bld) [Mass fraction] 5.4 % Normal <=5.6 [facility] Comment on above: Order Comment: KRISTINA E AD TO BLOOD DONE ON 06/08/24 Result Comment: Norm al < 5.7 % Prediabetic 5.7 - 6.4 % Diabetic >or= 6.5 % Please note range changes. Performed By: #### L 503.6075, L503.6550, L501.9985, L503.6150 #### [facility] [address] [place], [address] Hemoglobin A1c percentageOrd ered By: Usman Mares on 11-01-2024 HbA1c (Bld) [Mass fraction] 5.4 % <5.7 [facility] Comment on above: Normal < 5.7 % Predi abetic 5.7 - 6.4 % Diabetic >or= 6.5 % Please note range changes. Hemoglobin measurementOrdere d By: Usman Mares on 11-01-2024 Hemoglobin (Bld) [Mass/Vol] 15.5 g/dL High 12.0-15.0 [facility] Immature granulocytes/100 WB C Auto (Bld)Ordered By: Usman Mares on 11-01-2024 Immature granulocytes/100 WBC (Bld) 0.000 % 0.0-0.9 [facility] Comment on above: IG% - Immature Granu locytes (promyelocytes, myelocytes and metamyelocytes) > 1% indicates that a LEFT SHIFT is Present. International normalized rat io (INR) calculationOrdered By: Usman Mares on 11-01-2024 INR Coag (Bld) [Relative time] 1.0 {INR} [facility] Ironon 11-01-2024 Iron [Mass/Vol] 102 ug/dL Normal 50-170 [facility] Comment on above: Order Comment: KRISTINA E AD TO BLOOD DONE ON 06/08/24 Performed By: #### L 503.6075, L503.6550, L501.9985, L503.6150 #### [facility] [address] [place], [address] Iron measurement (mass/mass) Ordered By: Tyron Knight on 11-01-2024 Iron (Unsp spec) [Mass/Mass] 102 ug/dL 50-170 [facility] LDL calc ser/plasOrdered By: Tyron Knight on 11-01-2024 Cholesterol in LDL [Mass/Vol] 77 mg/dL [facility] Comment on above: Cchkazgglb=120-373 m g/dL & Higher Sjxk=970 mg/dL or greater Laboratory - Chemistry and C hemistry - challengeOrdered By: Usman Mares on 11-01-2024 AST [Catalytic activity/Vol] 48 U/L High <32 [facility] Lipid Profileon 11-01-2024 CHOL:HDL 2.74 Normal [facility] Comment on above: Order Comment: Order Date: 10/28/24Order Info: [id number] - CMPOrder Date: 06/30/24Order Info: [id number] - LIPIDOrder Info: [id number] - TSHOrder Info: [id number] - FEOrder Info: [id number] - FEROrder Info: 3024-7 - T4F Performed By: #### L 100.0100, L500.4100 ####[facility] [address] [place], [address] Cholesterol [Mass/Vol] 141 mg/dL Normal <=200 [facility] Comment on above: Order Comment: Order Date: 10/28/24Order Info: [id number] - CMPOrder Date: 06/30/24Order Info: [id number] - LIPIDOrder Info: [id number] - TSHOrder Info: [id number] - FEOrder Info: 2276-4 - FEROrder Info: 3024-7 - T4F Result Comment: Chol esterol level, Desirable <200 mg/dL Borderline high cholesterol 200-239 mg/dL High cholesterol >=240 mg/dL Recommendations of the NCEP Adult Treatment Panel for the following risk-cutoff thresholds for the [place] population. Performed By: #### L 100.0100, L500.4100 ####[facility] [address] [place], [address] Cholesterol in HDL [Mass/Vol] 51 mg/dL Normal [facility] Comment on above: Order Comment: Order Date: 10/28/24Order Info: [id number]- - CMPOrder Date: 06/30/24Order Info: [id number] - LIPIDOrder Info: [id number] - TSHOrder Info: [...] age. Performed By: #### L 100.0100, L500.4100 ####[facility] [address] [facility] [address] Cholesterol in LDL [Mass/Vol] 77 mg/dL Normal [facility] Comment on above: Order Comment: Order Date: 10/28/24Order Info: [id number] - CMPOrder Date: 06/30/24Order Info: [id number] - LIPIDOrder Info: 6-3 - TSHOrder Info: [id number] - FEOrder Info: 4 - FEROrder Info: 7 - T4F Result Comment: Bord zpwizv=247-655 mg/dL Higher Tfim=119 mg/dL or greater Performed By: #### L 100.0100, L500.4100 ####[facility] [address] [facility] [address] Cholesterol in VLDL [Mass/Vol] 12 mg/dL Normal 5-40 [facility] Comment on above: Order Comment: Order Date: 10/28/24Order Info: [id number]- - CMPOrder Date: 06/30/24Order Info: [id number] - LIPIDOrder Info: [id number] - TSHOrder Info: [id number] - FEOrder Info: [id number] - FEROrder Info: [id number] - T4F Performed By: #### L 100.0100, L500.4100 ####[facility] [address] [place], [place], [phone] Triglyceride [Mass/Vol] 61 mg/dL Normal [facility] Comment on above: Order Comment: Order Date: 10/28/24Order Info: [id number] - CMPOrder Date: 06/30/24Order Info: [id number] - LIPIDOrder Info: [id number] - TSHOrder Info: [id number] - FEOrder Info: [id number] - FEROrder Info: 3024-7 - T4F Result Comment: The drugs N-Acetylcysteine and Metamizole may falsely depress this assay. Normal range: <150 mg/dL Borderline High: 150-199 mg/dL High: 200-499 mg/dL Very High: >500 mg/dL Performed By: #### L 100.0100, L500.4100 ####[facility] [address] [place], [place], [phone] MCV (mean corpuscular volume ) determinationOrdered By: Usman Mares on 11-01-2024 MCV (RBC) [Entitic vol] 88.0 fL 81-99 [facility] Mean corpuscular hemoglobin (MCH) determinationOrdered By: Usman Mares on 11-01-2024 MCH (RBC) [Entitic mass] 30.5 pg 27.0-32.0 [facility] Mean corpuscular hemoglobin concentration (MCHC) determinationOrdered By: Usman Mares on 11-01-2024 MCHC (RBC) [Mass/Vol] 34.6 g/dL 32-36 [facility] Mean platelet volume determi nationOrdered By: Usman Mares on 11-01-2024 Platelet mean volume (Bld) [Entitic vol] 10.7 fL 6.2-12.0 [facility] Monocyte percentageOrdered B y: Usman Mares on 11-01-2024 Monocytes/100 WBC (Bld) 15.6 % High 0-10 [facility] Neutrophil percentageOrdered By: Usman Mares on 11-01-2024 Neutrophils/100 WBC (Bld) 41.5 % Low 47-70 [facility] Nucleated red blood cell per centageOrdered By: Usman Mares on 11-01-2024 Nucleated RBC/100 WBC (Bld) [Ratio] 0 % 0-5 [facility] Platelet countOrdered By: Torrey Mares on 11-01-2024 Platelets (Bld) [#/Vol] 227 10*3/uL 150-450 [facility] Potassium measurement (mass/ volume)Ordered By: Usman Mares on 11-01-2024 Potassium (Unsp spec) [Mass/Vol] 4.1 mmol/L 3.3-5.1 [facility] Prothrombin Time w/INRon INR Coag (PPP) [Relative time] 1.0 {INR} Normal [facility] Comment on above: Order Comment: SEND CBCD,CMP,TSH,FT4 TO Performed By: #### L 500.4050, L100.0100, L300.3900, L506.0400, L501.9520, L501.9985, L501.6710 ####[facility] [address] [place], [place], [phone] PT Coag (PPP) [Time] 13.6 s Normal 11.7-14.9 [facility] Comment on above: Order Comment: SEND CBCD,CMP,TSH,FT4 TO Performed By: #### L 500.4050, L100.0100, L300.3900, L506.0400, L501.9520, L501.9985, L501.6710 ####[facility] [address] [place], [place], [phone] Prothrombin timeOrdered By: Usman Mares on 11-01-2024 PT Coag (PPP) [Time] 13.6 s 11.7-14.9 [facility] RBC Auto (Bld) [#/Vol]Ordere d By: Usman Mares on 11-01-2024 RBC (Bld) [#/Vol] 5.09 10*6/uL 4.2-5.4 [facility] Screening total cholesterol/ high density lipoprotein (HDL) cholesterol ratioOrdered By: Tyron Knight on 11-01-2024 Cholesterol.total/Kitty sterol in HDL [Mass ratio] 2.74 {ratio} [facility] Serum creatinine measurement (mass/volume)Ordered By: Usman Mares on 11-01-2024 Creatinine [Mass/Vol] 0.76 mg/dL 0.70-1.20 [facility] Serum globulin measurementOr dered By: Usman aMres on 11-01-2024 Globulin (S) [Mass/Vol] 3.0 g/dL 2.2-4.2 [facility] Serum glucose measurement (m ass/volume)Ordered By: Usman Mares on 11-01-2024 Glucose [Mass/Vol] 96 mg/dL 70-99 [facility] Serum or plasma C reactive p rotein measurement (mass/volume)Ordered By: Usman Mares on 11-01-2024 CRP [Mass/Vol] mg/L 0.0-3.0 [facility] Serum or plasma alanine aponte otransferase (ALT) measurementOrdered By: Usman Mares on 11-01-2024 ALT [Catalytic activity/Vol] 51 U/L High <35 [facility] Serum or plasma albumin negra urement (mass/volume)Ordered By: Usman Mares on 11-01-2024 Albumin [Mass/Vol] 4.0 g/dL 3.4-4.8 [facility] Serum or plasma albumin/glob ulin mass ratioOrdered By: Usman Mares on 11-01-2024 Albumin/Globulin [Mass ratio] 1.3 {ratio} 0.9-2.4 [facility] Serum or plasma alkaline angela sphatase measurementOrdered By: Usman Mares on 11-01-2024 ALP [Catalytic activity/Vol] 194 U/L High 35-104 [facility] Serum or plasma calcium negra urement (mass/volume)Ordered By: Usman Mares on 11-01-2024 Calcium [Mass/Vol] 9.3 mg/dL 7.6-11.0 [facility] Serum or plasma cholesterol in HDL measurement (mass/volume)Ordered By: Tyron Knight on 11-01-2024 Cholesterol in HDL [Mass/Vol] 51 mg/dL >40 [facility] Comment on above: National Cholesterol Education Program (NCEP) guidelines:<40 mg/dL: Low HDL-cholesterol (major risk factor for CHD)>= 60 mg/dL: High HDL-cholesterol (negative risk factor for CHD)HDL-cholesterol is affected by a number of factors, e.g. smoking, exercise, hormones, sex and age. Serum or plasma cholesterol measurement (mass/volume)Ordered By: Tyron Knight on 11-01-2024 Cholesterol [Mass/Vol] 141 mg/dL <201 [facility] Comment on above: Cholesterol level, D esirable <200 mg/dLBorderline high cholesterol 200-239 mg/dLHigh cholesterol >=240 mg/dLRecommendations of the NCEP Adult Treatment Panel for the following risk-cutoff thresholds for the [place] population. Serum or plasma ferritin rajesh surement (mass/volume)Ordered By: Tyron Knight on 11-01-2024 Ferritin [Mass/Vol] 223 ng/mL 22-378 [facility] Serum or plasma urea nitroge n measurement (mass/volume)Ordered By: Usman Mares on 11-01-2024 Urea nitrogen [Mass/Vol] 15 mg/dL 4-19 [facility] Sodium levelOrdered By: Prosper Mares on 11-01-2024 Sodium [Moles/Vol] 140 mmol/L 133-145 [facility] T4 Free Directon 11-01-2024 T4 FREE DIRECT 1.10 ng/dL Normal 0.76-1.46 [facility] Comment on above: Order Comment: KRISTINA Luna AD TO BLOOD DONE ON 06/08/24 Performed By: #### L 503.6075, L503.6550, L501.9985, L503.6150 #### [facility] [address] [place], [address] T4 freeOrdered By: Usman narayanan on 11-01-2024 Free T4 [Mass/Vol] 1.10 ng/dL 0.76-1.46 [facility] TSH DL <= 0.005 mIU/L QnOrde red By: Usman Mares on 11-01-2024 TSH Qn 0.041 uIU/mL Low 0.300-4.200 [facility] Thyroid Stim Hormone (TSH)on 11-01-2024 TSH 0.041 uIU/mL Low 0.300-4.200 [facility] Comment on above: Order Comment: SEND CBCD,CMP,TSH,FT4 TO Performed By: #### L 500.4050, L100.0100, L300.3900, L506.0400, L501.9520, L501.9985, L501.6710 ####[facility] [address] [place], [address] Total proteinOrdered By: Camila Mares on 11-01-2024 Protein [Mass/Vol] 7.0 g/dL 5.9-8.4 [facility] Triglycerides measurementOrd ered By: Tyron Knight on 11-01-2024 Triglyceride [Mass/Vol] 61 mg/dL <199 [facility] Comment on above: The drugs N-Acetylcy steine and Metamizole may falsely depress this assay. Normal range: <150 mg/dLBorderline High: 150-199 mg/dLHigh: 200-499 mg/dLVery High: >500 mg/dL Vitamin D,25 Hydroxyon 11-01 Vitamin D 25-OH 45.7 ng/mL Normal 30-100 [facility] Comment on above: Order Comment: Order Date: 10/28/24 Order Info: [id number] - CMP Order Date: 06/30/24 Order Info: [id number] - LIPID Order Info: [id number] - TSH Order Info: [id number] - FE Order Info: [id number] - SAMPSON Order Info: [id number] - T4F Result Comment: Diana min D Status Deficiency: <20 ng/mL (50nmol/L) Insufficiency: 20-30 ng/mL (50-75 nmol/L) Sufficiency: 30-100 ng/mL (75-250 nmol/L) Toxicity: >100 ng/mL (>250 nmol/L) Performed By: #### L 506.1001 #### [facility] [address] [place], [place], [phone] White blood cell (WBC) count Ordered By: Usman Mares on 11-01-2024 WBC (Bld) [#/Vol] 3.9 10*3/uL Low 4.4-11.0 [facility] Ferritinon 06-09-2024 Ferritin [Mass/Vol] 168 ng/mL Normal 8-252 [facility] Comment on above: Order Comment: Order Date: 12/30/23 Order Info: [id number] - CMP Order Info: [id number] - TSH Order Info: [id number] T4F PLEASE ADD FERRITIN, IRON AND IRON BINDING TO BLOOD DONE ON 06/08/24 Performed By: #### L 503.6075, L503.6550, L501.9985, L503.6150 #### [facility] [address] [place], [address] Hemoglobin A1con 06-09-2024 HbA1c (Bld) [Mass fraction] 5.4 % Normal 3.8-5.6 [facility] Comment on above: Order Comment: PLEAS E AD TO BLOOD DONE ON 06/08/24 Result Comment: Norm al < 5.7 % Prediabetic 5.7 - 6.4 % Diabetic >or= 6.5 % Please note range changes. Performed By: #### L 503.6075, L503.6550, L501.9985, L503.6150 #### [facility] [address] [place], [address] Ironon 06-09-2024 Iron [Mass/Vol] 118 ug/dL Normal 50-170 [facility] Comment on above: Order Comment: Order Date: 12/30/23 Order Info: [id number] - CMP Order Info: [id number] - TSH Order Info: [id number] T4F PLEASE ADD FERRITIN, IRON AND IRON BINDING TO BLOOD DONE ON 06/08/24 Performed By: #### L 503.6075, L503.6550, L501.9985, L503.6150 #### [facility] [address] [place], [address] Iron Binding Capacity,Totalo n 06-09-2024 TIBC 394 ug/dL Normal 250-450 [facility] Comment on above: Order Comment: Order Date: 12/30/23 Order Info: [id number] - CMP Order Info: [id number] - TSH Order Info: 3024-7 - T4F PLEASE ADD FERRITIN, IRON AND IRON BINDING TO BLOOD DONE ON 06/08/24 Performed By: #### L 503.6075, L503.6550, L501.9985, L503.6150 #### [facility] [address] [place], [address] CBC W/Diff, Automatedon 05-29 Absolute Lymph 1.53 X10 3/uL Normal 0.83-4.51 [facility] Comment on above: Order Comment: Order Date: 12/30/23 Order Info: [id number] - CBCD Performed By: #### L 506.0400, L501.9520, L506.1000, L500.4050, L100.0100 #### [facility] [address] [place], [address] Absolute Neut 2.6 X10 3/uL Normal 2.0-7.7 [facility] Comment on above: Order Comment: Order Date: 12/30/23 Order Info: 0184-1 - CBCD Performed By: #### L 506.0400, L501.9520, L506.1000, L500.4050, L100.0100 #### [facility] [address] [place], [address] Basophils/100 WBC (Bld) 1.6 % High 0-1 [facility] Comment on above: Order Comment: Order Date: 12/30/23 Order Info: [id number] - CBCD Performed By: #### L 506.0400, L501.9520, L506.1000, L500.4050, L100.0100 #### [facility] [address] [place], [address] Eosinophils/100 WBC (Bld) 3.4 % Normal 0-5 [facility] Comment on above: Order Comment: Order Date: 12/30/23 Order Info: [id number] - CBCD Performed By: #### L 506.0400, L501.9520, L506.1000, L500.4050, L100.0100 #### [facility] [address] [place], [address] Erythrocyte distribution width (RBC) [Ratio] 12.3 % Normal 11.6-14.6 [facility] Comment on above: Order Comment: Order Date: 12/30/23 Order Info: [id number]- - CBCD Performed By: #### L 506.0400, L501.9520, L506.1000, L500.4050, L100.0100 #### [facility] [address] [place], [address] Hematocrit (Bld) [Volume fraction] 45.2 % Normal 37-47 [facility] Comment on above: Order Comment: Order Date: 12/30/23 Order Info: [id number]- - CBCD Performed By: #### L 506.0400, L501.9520, L506.1000, L500.4050, L100.0100 #### [facility] [address] [place], [address] Hemoglobin (Bld) [Mass/Vol] 15.6 g/dL High 12.0-15.0 [facility] Comment on above: Order Comment: Order Date: 12/30/23 Order Info: 0184-1 - CBCD Performed By: #### L 506.0400, L501.9520, L506.1000, L500.4050, L100.0100 #### [facility] [address] [place], [address] IG% 0.200 Normal 0.0-0.9 [facility] Comment on above: Order Comment: Order Date: 12/30/23 Order Info: [id number] - CBCD Result Comment: IG% - Immature Granulocytes (promyelocytes, myelocytes and metamyelocytes) > 1% indicates that a LEFT SHIFT is Present. Performed By: #### L 506.0400, L501.9520, L506.1000, L500.4050, L100.0100 #### [facility] [address] [place], [address] Lymphocytes/100 WBC (Bld) 30.6 % Normal 19-41 [facility] Comment on above: Order Comment: Order Date: 12/30/23 Order Info: [id number] - CBCD Performed By: #### L 506.0400, L501.9520, L506.1000, L500.4050, L100.0100 #### [facility] [address] [place], [address] MCH (RBC) [Entitic mass] 30.2 pg Normal 27.0-32.0 [facility] Comment on above: Order Comment: Order Date: 12/30/23 Order Info: [id number] - CBCD Performed By: #### L 506.0400, L501.9520, L506.1000, L500.4050, L100.0100 #### [facility] [address] [place], [address] MCHC (RBC) [Mass/Vol] 34.5 g/dL Normal 32-36 [facility] Comment on above: Order Comment: Order Date: 12/30/23 Order Info: 0184-1 - CBCD Performed By: #### L 506.0400, L501.9520, L506.1000, L500.4050, L100.0100 #### [facility] [address] [place], [address] MCV (RBC) [Entitic vol] 87.6 fL Normal 81-99 [facility] Comment on above: Order Comment: Order Date: 12/30/23 Order Info: 0184-1 - CBCD Performed By: #### L 506.0400, L501.9520, L506.1000, L500.4050, L100.0100 #### [facility] [address] [place], [address] Monocytes/100 WBC (Bld) 12.8 % High 0-10 [facility] Comment on above: Order Comment: Order Date: 12/30/23 Order Info: 0184-1 - CBCD Performed By: #### L 506.0400, L501.9520, L506.1000, L500.4050, L100.0100 #### [facility] [address] [place], [address] Neutrophils/100 WBC (Bld) 51.4 % Normal 47-70 [facility] Comment on above: Order Comment: Order Date: 12/30/23 Order Info: 0184- - CBCD Performed By: #### L 506.0400, L501.9520, L506.1000, L500.4050, L100.0100 #### [facility] [address] [place], [address] Nucleated RBC (Bld) [#/Vol] 0 10*3/uL Normal 0-5 [facility] Comment on above: Order Comment: Order Date: 12/30/23 Order Info: 0184- - CBCD Performed By: #### L 506.0400, L501.9520, L506.1000, L500.4050, L100.0100 #### [facility] [address] [place], [address] Platelet mean volume (Bld) [Entitic vol] 9.7 fL Normal 6.2-12.0 [facility] Comment on above: Order Comment: Order Date: 12/30/23 Order Info: 0184-1 - CBCD Performed By: #### L 506.0400, L501.9520, L506.1000, L500.4050, L100.0100 #### [facility] [address] [place], [address] Platelets (Bld) [#/Vol] 275 10*3/uL Normal 150-450 [facility] Comment on above: Order Comment: Order Date: 12/30/23 Order Info: 0184-1 - CBCD Performed By: #### L 506.0400, L501.9520, L506.1000, L500.4050, L100.0100 #### [facility] [address] [place], [address] RBC (Bld) [#/Vol] 5.16 10*6/uL Normal 4.2-5.4 [facility] Comment on above: Order Comment: Order Date: 12/30/23 Order Info: 0184-1 - CBCD Performed By: #### L 506.0400, L501.9520, L506.1000, L500.4050, L100.0100 #### [facility] [address] [place], [address] RDW SD 39.6 fl Normal 35.1-43.9 [facility] Comment on above: Order Comment: Order Date: 12/30/23 Order Info: 0184-1 - CBCD Performed By: #### L 506.0400, L501.9520, L506.1000, L500.4050, L100.0100 #### [facility] [address] [place], [address] WBC (Bld) [#/Vol] 5.0 10*3/uL Normal 4.4-11.0 [facility] Comment on above: Order Comment: Order Date: 12/30/23 Order Info: 0184-1 - CBCD Performed By: #### L 506.0400, L501.9520, L506.1000, L500.4050, L100.0100 #### [facility] [address] [place], [address] Comprehensive Metabolic Prof ilon 06-08-2024 Albumin [Mass/Vol] 3.5 g/dL Normal 3.2-5.0 [facility] Comment on above: Order Comment: Order Date: 12/30/23 Order Info: 0786-1 - CMP Order Info: 3015-3 - TSH Order Info: 3023-7 - T4F Performed By: #### L 506.0400, L501.9520, L506.1000, L500.4050, L100.0100 #### [facility] [address] [place], [address] Albumin/Globulin [Mass ratio] 0.9 {ratio} Normal 0.9-2.4 [facility] Comment on above: Order Comment: Order Date: 12/30/23 Order Info: 0786-1 - CMP Order Info: 3 - TSH Order Info: 7 - T4F Performed By: #### L 506.0400, L501.9520, L506.1000, L500.4050, L100.0100 #### [facility] [address] [place], [address] ALK P 142 U/L High 45-117 [facility] Comment on above: Order Comment: Order Date: 12/30/23 Order Info: 0786-1 - CMP Order Info: 3 - TSH Order Info: 7 - T4F Performed By: #### L 506.0400, L501.9520, L506.1000, L500.4050, L100.0100 #### [facility] [address] [place], [address] ALT [Catalytic activity/Vol] 45 U/L Normal 13-56 [facility] Comment on above: Order Comment: Order Date: 12/30/23 Order Info: 0786-1 - CMP Order Info: 3 - TSH Order Info: 3023-7 - T4F Performed By: #### L 506.0400, L501.9520, L506.1000, L500.4050, L100.0100 #### [facility] [address] [place], [address] AST [Catalytic activity/Vol] 33 U/L Normal 15-37 [facility] Comment on above: Order Comment: Order Date: 12/30/23 Order Info: 0786-1 - CMP Order Info: 3015-3 - TSH Order Info: 3024-7 - T4F Performed By: #### L 506.0400, L501.9520, L506.1000, L500.4050, L100.0100 #### [facility] [address] [place], [address] Bilirubin [Mass/Vol] 0.60 mg/dL Normal 0.20-1.00 [facility] Comment on above: Order Comment: Order Date: 12/30/23 Order Info: 785-1 - CMP Order Info: 3 - TSH Order Info: 3024-7 - T4F Result Comment: For patients on eltrombopag therapy, use of Dimension Dougherty TBIL is not recommended. Performed By: #### L 506.0400, L501.9520, L506.1000, L500.4050, L100.0100 #### [facility] [address] [place], [address] BUN/CRE 21.5 RATIO High 10-20 [facility] Comment on above: Order Comment: Order Date: 12/30/23 Order Info: 0786-1 - CMP Order Info: 3016-3 - TSH Order Info: 3024-7 - T4F Performed By: #### L 506.0400, L501.9520, L506.1000, L500.4050, L100.0100 #### [facility] [address] [place], [address] CA,Total 9.2 mg/dL Normal 8.5-10.1 [facility] Comment on above: Order Comment: Order Date: 12/30/23 Order Info: 0786-1 - CMP Order Info: 3016-3 - TSH Order Info: 3024-7 - T4F Performed By: #### L 506.0400, L501.9520, L506.1000, L500.4050, L100.0100 #### [facility] [address] [place], [address] Chloride [Moles/Vol] 107 mmol/L Normal 98-107 [facility] Comment on above: Order Comment: Order Date: 12/30/23 Order Info: 785-1 - CMP Order Info: 3 - TSH Order Info: 7 - T4F Performed By: #### L 506.0400, L501.9520, L506.1000, L500.4050, L100.0100 #### [facility] [address] [place], [address] CO2 [Moles/Vol] 27.0 mmol/L Normal 21.0-32.0 [facility] Comment on above: Order Comment: Order Date: 12/30/23 Order Info: 785-04 - CMP Order Info: 3015-06 - TSH Order Info: 3023-10 - T4F Performed By: #### L 506.0400, L501.9520, L506.1000, L500.4050, L100.0100 #### [facility] [address] [place], [address] Creatinine [Mass/Vol] 0.79 mg/dL Normal 0.55-1.02 [facility] Comment on above: Order Comment: Order Date: 12/30/23 Order Info: 785-04 - CMP Order Info: 3015-06 - TSH Order Info: 7 - T4F Result Comment: The validity of the calculated GFR GFRAA in patients over 70 years has not been determined. Clinical correlation is essential. Performed By: #### L 506.0400, L501.9520, L506.1000, L500.4050, L100.0100 #### [facility] [address] [place], [address] EST GFR - AA 92 mL/min Normal >60 [facility] Comment on above: Order Comment: Order Date: 12/30/23 Order Info: 785-1 - CMP Order Info: 3015-06 - TSH Order Info: 3024-7 - T4F Result Comment: Afri can [place] GFR Calc Performed By: #### L 506.0400, L501.9520, L506.1000, L500.4050, L100.0100 #### [facility] [address] [place], [address] GAP 5 Normal 5-15 [facility] Comment on above: Order Comment: Order Date: 12/30/23 Order Info: 07-1 - CMP Order Info: 3015-06 - TSH Order Info: 3023-10 - T4F Performed By: #### L 506.0400, L501.9520, L506.1000, L500.4050, L100.0100 #### [facility] [address] [place], [address] GFR/1.73 sq M.predicted among non-blacks MDRD (S/P/Bld) [Vol rate/Area] 76 mL/min/{1.73_m2} Normal >60 [facility] Comment on above: Order Comment: Order Date: 12/30/23 Order Info: 07 - CMP Order Info: 3015-06 - TSH Order Info: 3023-10 - T4F Result Comment: Non- GFR Calc Performed By: #### L 506.0400, L501.9520, L506.1000, L500.4050, L100.0100 #### [facility] [address] [place], [address] Globulin (S) [Mass/Vol] 4.0 g/dL Normal 2.2-4.2 [facility] Comment on above: Order Comment: Order Date: 12/30/23 Order Info: 07-1 - CMP Order Info: 3015-06 - TSH Order Info: 7 - T4F Performed By: #### L 506.0400, L501.9520, L506.1000, L500.4050, L100.0100 #### [facility] [address] [place], [address] Glucose [Mass/Vol] 102 mg/dL Normal 74-106 [facility] Comment on above: Order Comment: Order Date: 12/30/23 Order Info: 0786-1 - CMP Order Info: 3015-3 - TSH Order Info: 302-7 - T4F Result Comment: Fast ing Glucose result from 100 to 125 mg/dL suggests IMPAIRED HOMEOSTASIS per A.D.A. criteria. Performed By: #### L 506.0400, L501.9520, L506.1000, L500.4050, L100.0100 #### [facility] [address] [place], [address] Potassium [Moles/Vol] 4.2 mmol/L Normal 3.5-5.1 [facility] Comment on above: Order Comment: Order Date: 12/30/23 Order Info: 07-1 - CMP Order Info: 3 - TSH Order Info: 3027 - T4F Performed By: #### L 506.0400, L501.9520, L506.1000, L500.4050, L100.0100 #### [facility] [address] [place], [address] Sodium [Moles/Vol] 138 mmol/L Normal 136-145 [facility] Comment on above: Order Comment: Order Date: 12/30/23 Order Info: 0786-1 - CMP Order Info: 3 - TSH Order Info: 302-7 - T4F Performed By: #### L 506.0400, L501.9520, L506.1000, L500.4050, L100.0100 #### [facility] [address] [place], [address] T PROT 7.5 g/dL Normal 6.4-8.2 [facility] Comment on above: Order Comment: Order Date: 12/30/23 Order Info: 0786-1 - CMP Order Info: 3 - TSH Order Info: 3024-7 - T4F Performed By: #### L 506.0400, L501.9520, L506.1000, L500.4050, L100.0100 #### [facility] [address] [place], [address] Urea nitrogen [Mass/Vol] 17 mg/dL Normal 7-18 [facility] Comment on above: Order Comment: Order Date: 12/30/23 Order Info: 0786-1 - CMP Order Info: 3016-3 - TSH Order Info: 3024-7 - T4F Performed By: #### L 506.0400, L501.9520, L506.1000, L500.4050, L100.0100 #### [facility] [address] [place], [address] T4 Free Directon 06-08-2024 T4 FREE DIRECT 0.87 ng/dL Normal 0.76-1.46 [facility] Comment on above: Order Comment: Order Date: 12/30/23Order Info: 0786-1 - CMPOrder Info: 3016-3 - TSHOrder Info: 3024-7 - T4F Performed By: #### L 506.0400, L501.9520, L506.1000, L500.4050, L100.0100 ####[facility] [address] [place], [address] Thyroid Stim Hormone (TSH)on 06-08-2024 TSH 0.103 uIU/mL Low 0.358-3.740 [facility] Comment on above: Order Comment: Order Date: 12/30/23Order Info: 0786-1 - CMPOrder Info: 3016-3 - TSHOrder Info: 3024-7 - T4F Performed By: #### L 506.0400, L501.9520, L506.1000, L500.4050, L100.0100 ####[facility] [address] [place], [address] Vitamin D,25 Hydroxyon 06-08 Vitamin D 25-OH 69.6 ng/mL Normal [facility] Comment on above: Order Comment: Order Date: 12/30/23Order Info: [id number] - VITD25 Result Comment: Diana min D 25(OH) Status Range Deficiency <20 ng/mL (50nmol/L) Insufficiency 20 - 30 ng/mL (50 - 75 nmol/L) Sufficiency 30 - 100 ng/mL (75 - 250 nmol/L) Toxicity >100 ng/mL (>250 nmol/L) Performed By: #### L 506.0400, L501.9520, L506.1000, L500.4050, L100.0100 ####[facility] [address] [place], [address] Gastroenterology Visit Repor ton 06-07-2024 Gastroenterology Visit Report [facility] [address] [place] [address] OFFICE VISIT Date of Service: 06/07/24 MR#: [id number] Acct: [id number] Name: RACHEL MAY Rep #: [id number] : 1950 Provider: Dr. Usman kaplan MD Age/Sex: 73/F [place] [facility] Status: Signed Intake Vital Signs [...] Initially noted when she first saw her foster care therapist, Dr. Calloway; then established with [facility] for osteoarthritis who did not feel [...] tooth pu (more content not included)... Normal [facility] Orthopedic Visit Reporton Orthopedic Visit Report [facility] [address] [place] [address] OFFICE VISIT Date of Service: 06/03/24 MR#: [id number] Acct: [id number] Name: RACHEL MAY Rep #: [id number] : 1950 Provider: Dr. Siva Louise MD Age/Sex: 73/F [place] [facility] Status: Signed Intake Vital Signs 12/12/23 07:52 [...] by me, Dr. Siva Louise MD 06/03/24 2279. Part of today???s visit was documented by [...] any since. She did have xrays with [facility] about a month ago but denies [...] from outside source. X-rays from [facility] were available which show L4- 5 grade [...] referral sen (more content not included)... Normal [facility] Absolute lymphocyte countOrd ered By: Tyron Fernandezjoe on 05-01-2023 Lymphocytes Auto (Unsp spec) [#/Vol] 1.16 10*3/uL 0.83-4.51 [facility] Basophil percentageOrdered B y: Tyron Fernandezjoe on 05-01-2023 Basophils/100 WBC (Bld) 1.3 % 0-1 [facility] Bilirubin [Mass/Vol] 0.50 mg/dL 0.20-1.00 [facility] Comment on above: For patients on eltr ombopag therapy, use of Dimension Dougherty TBIL is not recommended. Chloride [Moles/Vol] 108 mmol/L 98-107 [facility] Cholesterol [Mass/Vol] 188 mg/dL <200 [facility] Comment on above: <200 mg/dL Desirable 200-240 mg/dL Borderline >240 mg/dL High Risk Eosinophils/100 WBC (Bld) 2.8 % 0-5 [facility] Glucose [Mass/Vol] 101 mg/dL 74-106 [facility] Comment on above: Fasting Glucose resu lt from 100 to 125 mg/dL suggests IMPAIRED HOMEOSTASIS per A.D.A. criteria. Neutrophils (Bld) [#/Vol] 2.7 10*3/uL 2.0-7.7 [facility] Neutrophils/100 WBC (Bld) 58.2 % 47-70 [facility] Potassium [Moles/Vol] 4.1 mmol/L 3.5-5.1 [facility] Protein [Mass/Vol] 7.1 g/dL 6.4-8.2 [facility] Sodium [Moles/Vol] 140 mmol/L 136-145 [facility] Triglyceride [Mass/Vol] 102 mg/dL <199 [facility] Comment on above: The drugs N-Acetylcy steine and Metamizole may falsely depress this assay.Serum Triglycerides Reference Interval Normal <150 mg/dL Borderline high 150 - 199 mg/dL High 200 - 499 mg/dL Very High > or = 500 mg/dL WBC (Bld) [#/Vol] 4.6 10*3/uL 4.4-11.0 [facility] Blood erythrocytes count (nu mber/volume)Ordered By: Tyron Knight on 05-01-2023 RBC (Bld) [#/Vol] 5.24 10*6/uL 4.2-5.4 [facility] Blood hemoglobin measurement (mass/volume)Ordered By: Tyron Knight on 05-01-2023 Hemoglobin (Bld) [Mass/Vol] 15.5 g/dL 12.0-15.0 [facility] Blood lymphocytes/100 leukoc ytesOrdered By: Tyron Knight on 05-01-2023 Lymphocytes/100 WBC (Bld) 25.0 % 19-41 [facility] Blood monocytes/100 leukocyt esOrdered By: Tyron Knight on 05-01-2023 Monocytes/100 WBC (Bld) 12.5 % 0-10 [facility] Blood platelet mean volumeOr dered By: Tyron Knight on 05-01-2023 Platelet mean volume (Bld) [Entitic vol] 10.4 fL 6.2-12.0 [facility] Determination of erythrocyte mean corpuscular volume (MCV)Ordered By: Tyron Knight on 05-01-2023 MCV (RBC) [Entitic vol] 90.6 fL 81-99 [facility] Hematocrit Auto (Bld) [Volum e fraction]Ordered By: Tyron Knight on 05-01-2023 Hematocrit (Bld) [Volume fraction] 47.5 % 37-47 [facility] - Chemistry and C hemistry - challengeOrdered By: Tyron Knight on 05-01-2023 ALP [Catalytic activity/Vol] 126 U/L 45-117 [facility] ALT [Catalytic activity/Vol] 88 U/L 13-56 [facility] CO2 [Moles/Vol] 28.0 mmol/L 21.0-32.0 [facility] Free T4 [Mass/Vol] 0.94 ng/dL 0.76-1.46 [facility] Globulin (S) [Mass/Vol] 3.8 g/dL 2.2-4.2 [facility] Urea nitrogen/Creatinine [Mass ratio] 19.6 mg/mg 10-20 [facility] - Hematology and Cell countsOrdered By: Tyron Knight on 05-01-2023 Erythrocyte distribution width (RBC) [Entitic vol] 42.4 fL 35.1-43.9 [facility] Erythrocyte distribution width (RBC) [Ratio] 12.8 % 11.6-14.6 [facility] Immature granulocytes/100 WBC (Bld) 0.200 % 0.0-0.9 [facility] Comment on above: IG% - Immature Granu locytes (promyelocytes, myelocytes and metamyelocytes) > 1% indicates that a LEFT SHIFT is Present. MCH (RBC) [Entitic mass] 29.6 pg 27.0-32.0 [facility] Nucleated RBC/100 WBC (Bld) [Ratio] 0 % 0-5 [facility] MCHC Auto (RBC) [Mass/Vol]Or dered By: Tyron Knight on 05-01-2023 MCHC (RBC) [Mass/Vol] 32.6 g/dL 32-36 [facility] No Panel InformationOrdered By: Tyron Knight on 05-01-2023 Estimated GFR (MDRD) Amer 89 mL/min >60 [facility] Comment on above: GFR Calc Estimated GFR (MDRD) Non-Af Amer 74 mL/min >60 [facility] Comment on above: Non- GFR Calc Thyroid Stimulating Hormone (TSH) 1.12 uIU/mL 0.358-3.74 [facility] Vitamin D 25-Hydroxy 39.2 ng/mL [facility] Comment on above: Vitamin D 25(OH) Sta tus Range Deficiency <20 ng/mL (50nmol/L) Insufficiency 20 - 30 ng/mL (50 - 75 nmol/L) Sufficiency 30 - 100 ng/mL (75 - 250 nmol/L) Toxicity >100 ng/mL (>250 nmol/L) Platelets bldOrdered By: José Miguel Knight on 05-01-2023 Platelets (Bld) [#/Vol] 272 10*3/uL 150-450 [facility] Serum or plasma albumin negra urement (mass/volume)Ordered By: Tyron Knight on 05-01-2023 Albumin [Mass/Vol] 3.3 g/dL 3.2-5.0 [facility] Serum or plasma albumin/glob ulin mass ratioOrdered By: Tyron Knight on 05-01-2023 Albumin/Globulin [Mass ratio] 0.9 {ratio} 0.9-2.4 [facility] Serum or plasma calcium negra urement (mass/volume)Ordered By: Tyron Knight on 05-01-2023 Calcium [Mass/Vol] 8.6 mg/dL 8.5-10.1 [facility] Serum or plasma cholesterol in HDL measurement (mass/volume)Ordered By: Tyron Knight on 05-01-2023 Cholesterol in HDL [Mass/Vol] 56 mg/dL >40 [facility] Comment on above: The drugs N-Acetylcy steine and Metamizole may falsely depress this assay. Reference Range HDL <40 mg/dL Low HDL Cholesterol HDL >or= 60 mg/dL High HDL Cholesterol Serum or plasma cholesterol in VLDL measurement (mass/volume)Ordered By: Tyron Knight on 05-01-2023 Cholesterol in VLDL [Mass/Vol] 20 mg/dL 5-40 [facility] Serum or plasma creatinine m easurement (mass/volume)Ordered By: Tyron Knight on 05-01-2023 Creatinine [Mass/Vol] 0.82 mg/dL 0.55-1.02 [facility] Comment on above: The validity of the calculated GFR & GFRAA in patients over 70 years has not been determined. Clinical correlation is essential. Serum or plasma low density lipoprotein (LDL) cholesterol measurement (mass/volume)Ordered By: Tyron Knight on 05-01-2023 Cholesterol in LDL [Mass/Vol] 112 mg/dL 0-130 [facility] Serum or plasma urea nitroge n measurement (mass/volume)Ordered By: Tyron Knight on 05-01-2023 Urea nitrogen [Mass/Vol] 16 mg/dL 7-18 [facility] Thin prep Papanicolaou smear with manual screeningOrdered By: Tyron Knight on 05-01-2023 Thin prep Papanicolaou smear with manual screening 62 U/L 15-37 [facility] Thin prep Papanicolaou smear with manual screening 4 5-15 [facility] Absolute lymphocyte countOrd ered By: Tyron Knight on 11-07-2022 Lymphocytes Auto (Unsp spec) [#/Vol] 1.47 10*3/uL 0.83-4.51 [facility] Basophil percentageOrdered B y: Tyron Knight on 11-07-2022 Basophils/100 WBC (Bld) 1.3 % 0-1 [facility] Bilirubin [Mass/Vol] 0.50 mg/dL 0.20-1.00 [facility] Comment on above: For patients on eltr ombopag therapy, use of Dimension Dougherty TBIL is not recommended. Chloride [Moles/Vol] 106 mmol/L 98-107 [facility] Cholesterol [Mass/Vol] 165 mg/dL <200 [facility] Comment on above: <200 mg/dL Desirable 200-240 mg/dL Borderline >240 mg/dL High Risk Eosinophils/100 WBC (Bld) 4.3 % 0-5 [facility] Glucose [Mass/Vol] 92 mg/dL 74-106 [facility] Neutrophils (Bld) [#/Vol] 2.9 10*3/uL 2.0-7.7 [facility] Neutrophils/100 WBC (Bld) 55.6 % 47-70 [facility] Potassium [Moles/Vol] 3.8 mmol/L 3.5-5.1 [facility] Protein [Mass/Vol] 7.2 g/dL 6.4-8.2 [facility] Sodium [Moles/Vol] 140 mmol/L 136-145 [facility] Triglyceride [Mass/Vol] 85 mg/dL <199 [facility] Comment on above: The drugs N-Acetylcy steine and Metamizole may falsely depress this assay.Serum Triglycerides Reference Interval Normal <150 mg/dL Borderline high 150 - 199 mg/dL High 200 - 499 mg/dL Very High > or = 500 mg/dL WBC (Bld) [#/Vol] 5.3 10*3/uL 4.4-11.0 [facility] Blood erythrocytes count (nu mber/volume)Ordered By: Tyron Knight on 11-07-2022 RBC (Bld) [#/Vol] 5.08 10*6/uL 4.2-5.4 [facility] Blood hemoglobin measurement (mass/volume)Ordered By: Tyron Knight on 11-07-2022 Hemoglobin (Bld) [Mass/Vol] 15.2 g/dL 12.0-15.0 [facility] Blood lymphocytes/100 leukoc ytesOrdered By: Tyron Knight on 11-07-2022 Lymphocytes/100 WBC (Bld) 27.8 % 19-41 [facility] Blood monocytes/100 leukocyt esOrdered By: Tyron Knight on 11-07-2022 Monocytes/100 WBC (Bld) 10.8 % 0-10 [facility] Blood platelet mean volumeOr dered By: Tyron Knight on 11-07-2022 Platelet mean volume (Bld) [Entitic vol] 10.4 fL 6.2-12.0 [facility] Determination of erythrocyte mean corpuscular volume (MCV)Ordered By: Tyron Knight on 11-07-2022 MCV (RBC) [Entitic vol] 91.5 fL 81-99 [facility] Hematocrit Auto (Bld) [Volum e fraction]Ordered By: Tyron Knight on 11-07-2022 Hematocrit (Bld) [Volume fraction] 46.5 % 37-47 [facility] - Chemistry and C hemistry - challengeOrdered By: Tyron Knight on 11-07-2022 ALP [Catalytic activity/Vol] 115 U/L 45-117 [facility] ALT [Catalytic activity/Vol] 29 U/L 13-56 [facility] CO2 [Moles/Vol] 29.0 mmol/L 21.0-32.0 [facility] Free T4 [Mass/Vol] 1.31 ng/dL 0.76-1.46 [facility] Globulin (S) [Mass/Vol] 3.8 g/dL 2.2-4.2 [facility] Urea nitrogen/Creatinine [Mass ratio] 17.2 mg/mg 10-20 [facility] - Hematology and Cell countsOrdered By: Tyron Knight on 11-07-2022 Erythrocyte distribution width (RBC) [Entitic vol] 41.8 fL 35.1-43.9 [facility] Erythrocyte distribution width (RBC) [Ratio] 12.5 % 11.6-14.6 [facility] Immature granulocytes/100 WBC (Bld) 0.200 % 0.0-0.9 [facility] Comment on above: IG% - Immature Granu locytes (promyelocytes, myelocytes and metamyelocytes) > 1% indicates that a LEFT SHIFT is Present. MCH (RBC) [Entitic mass] 29.9 pg 27.0-32.0 [facility] Nucleated RBC/100 WBC (Bld) [Ratio] 0 % 0-5 [facility] MCHC Auto (RBC) [Mass/Vol]Or dered By: Tyron Knight on 11-07-2022 MCHC (RBC) [Mass/Vol] 32.7 g/dL 32-36 [facility] No Panel InformationOrdered By: Tyron Knight on 11-07-2022 Estimated GFR (MDRD) Amer 89 mL/min >60 [facility] Comment on above: GFR Calc Estimated GFR (MDRD) Non-Af Amer 74 mL/min >60 [facility] Comment on above: Non- GFR Calc Thyroid Stimulating Hormone (TSH) 0.32 uIU/mL 0.358-3.74 [facility] Vitamin D 25-Hydroxy 51.1 ng/mL [facility] Comment on above: Vitamin D 25(OH) Sta tus Range Deficiency <20 ng/mL (50nmol/L) Insufficiency 20 - 30 ng/mL (50 - 75 nmol/L) Sufficiency 30 - 100 ng/mL (75 - 250 nmol/L) Toxicity >100 ng/mL (>250 nmol/L) Platelets bldOrdered By: José Miguel Knight on 11-07-2022 Platelets (Bld) [#/Vol] 260 10*3/uL 150-450 [facility] Serum or plasma albumin negra urement (mass/volume)Ordered By: Tyron Knight on 11-07-2022 Albumin [Mass/Vol] 3.4 g/dL 3.2-5.0 [facility] Serum or plasma albumin/glob ulin mass ratioOrdered By: Tyron Knight on 11-07-2022 Albumin/Globulin [Mass ratio] 0.9 {ratio} 0.9-2.4 [facility] Serum or plasma calcium negra urement (mass/volume)Ordered By: Tyron Knight on 11-07-2022 Calcium [Mass/Vol] 8.7 mg/dL 8.5-10.1 [facility] Serum or plasma cholesterol in HDL measurement (mass/volume)Ordered By: Tyron Knight on 11-07-2022 Cholesterol in HDL [Mass/Vol] 53 mg/dL >40 [facility] Comment on above: The drugs N-Acetylcy steine and Metamizole may falsely depress this assay. Reference Range HDL <40 mg/dL Low HDL Cholesterol HDL >or= 60 mg/dL High HDL Cholesterol Serum or plasma cholesterol in VLDL measurement (mass/volume)Ordered By: Tyron Knight on 11-07-2022 Cholesterol in VLDL [Mass/Vol] 17 mg/dL 5-40 [facility] Serum or plasma creatinine m easurement (mass/volume)Ordered By: Tyron Knight on 11-07-2022 Creatinine [Mass/Vol] 0.81 mg/dL 0.55-1.02 [facility] Comment on above: The validity of the calculated GFR & GFRAA in patients over 70 years has not been determined. Clinical correlation is essential. Serum or plasma low density lipoprotein (LDL) cholesterol measurement (mass/volume)Ordered By: Tyron Knight on 11-07-2022 Cholesterol in LDL [Mass/Vol] 95 mg/dL 0-130 [facility] Serum or plasma urea nitroge n measurement (mass/volume)Ordered By: Tyron Knight on 11-07-2022 Urea nitrogen [Mass/Vol] 14 mg/dL 7-18 [facility] Thin prep Papanicolaou smear with manual screeningOrdered By: Tyron Knight on 11-07-2022 Thin prep Papanicolaou smear with manual screening 23 U/L 15-37 [facility] Thin prep Papanicolaou smear with manual screening 5 5-15 [facility] Absolute lymphocyte countOrd ered By: Dr. Knight on 05-10-2022 Lymphocytes Auto (Unsp spec) [#/Vol] 1.24 10*3/uL 0.83-4.51 [facility] Basophil percentageOrdered B y: Dr. Knight on 05-10-2022 Basophils/100 WBC (Bld) 1.0 % 0-1 [facility] Bilirubin [Mass/Vol] 0.50 mg/dL 0.20-1.00 [facility] Comment on above: For patients on eltr ombopag therapy, use of Dimension Dougherty TBIL is not recommended. Chloride [Moles/Vol] 103 mmol/L 98-107 [facility] Eosinophils/100 WBC (Bld) 2.3 % 0-5 [facility] Glucose [Mass/Vol] 90 mg/dL 74-106 [facility] Neutrophils (Bld) [#/Vol] 3.1 10*3/uL 2.0-7.7 [facility] Neutrophils/100 WBC (Bld) 58.1 % 47-70 [facility] Potassium [Moles/Vol] 4.0 mmol/L 3.5-5.1 [facility] Protein [Mass/Vol] 7.3 g/dL 6.4-8.2 [facility] Sodium [Moles/Vol] 141 mmol/L 136-145 [facility] WBC (Bld) [#/Vol] 5.3 10*3/uL 4.4-11.0 [facility] Blood erythrocytes count (nu mber/volume)Ordered By: Dr. Knight on 05-10-2022 RBC (Bld) [#/Vol] 5.41 10*6/uL 4.2-5.4 [facility] Blood hemoglobin measurement (mass/volume)Ordered By: Dr. Knight on 05-10-2022 Hemoglobin (Bld) [Mass/Vol] 16.2 g/dL 12.0-15.0 [facility] Blood lymphocytes/100 leukoc ytesOrdered By: Dr. Knight on 05-10-2022 Lymphocytes/100 WBC (Bld) 23.6 % 19-41 [facility] Blood monocytes/100 leukocyt esOrdered By: Dr. Knight on 05-10-2022 Monocytes/100 WBC (Bld) 14.6 % 0-10 [facility] Blood platelet mean volumeOr dered By: Dr. Knight on 05-10-2022 Platelet mean volume (Bld) [Entitic vol] 10.1 fL 6.2-12.0 [facility] Determination of erythrocyte mean corpuscular volume (MCV)Ordered By: Dr. Knight on 05-10-2022 MCV (RBC) [Entitic vol] 90.9 fL 81-99 [facility] Hematocrit Auto (Bld) [Volum e fraction]Ordered By: Dr. Knight on 05-10-2022 Hematocrit (Bld) [Volume fraction] 49.2 % 37-47 [facility] Laboratory - Chemistry and C hemistry - challengeOrdered By: Dr. Knight on 05-10-2022 ALP [Catalytic activity/Vol] 161 U/L 45-117 [facility] ALT [Catalytic activity/Vol] 40 U/L 13-56 [facility] CO2 [Moles/Vol] 29.0 mmol/L 21.0-32.0 [facility] Free T4 [Mass/Vol] 1.05 ng/dL 0.76-1.46 [facility] Globulin (S) [Mass/Vol] 3.7 g/dL 2.2-4.2 [facility] Urea nitrogen/Creatinine [Mass ratio] 14.7 mg/mg 10-20 [facility] Laboratory - Hematology and Cell countsOrdered By: Dr. Knight on 05-10-2022 Erythrocyte distribution width (RBC) [Entitic vol] 42.0 fL 35.1-43.9 [facility] Erythrocyte distribution width (RBC) [Ratio] 12.7 % 11.6-14.6 [facility] Immature granulocytes/100 WBC (Bld) 0.400 % 0.0-0.9 [facility] Comment on above: IG% - Immature Granu locytes (promyelocytes, myelocytes and metamyelocytes) > 1% indicates that a LEFT SHIFT is Present. MCH (RBC) [Entitic mass] 29.9 pg 27.0-32.0 [facility] Nucleated RBC/100 WBC (Bld) [Ratio] 0 % 0-5 [facility] MCHC Auto (RBC) [Mass/Vol]Or dered By: Dr. Knight on 05-10-2022 MCHC (RBC) [Mass/Vol] 32.9 g/dL 32-36 [facility] No Panel InformationOrdered By: Dr. Knight on 05-10-2022 Estimated GFR (MDRD) Amer 75 mL/min >60 [facility] Comment on above: GFR Calc Estimated GFR (MDRD) Non-Af Amer 62 mL/min >60 [facility] Comment on above: Non- GFR Calc Thyroid Stimulating Hormone (TSH) 1.47 uIU/mL 0.358-3.74 [facility] Vitamin D 25-Hydroxy 37.6 ng/mL [facility] Comment on above: Vitamin D 25(OH) Sta tus Range Deficiency <20 ng/mL (50nmol/L) Insufficiency 20 - 30 ng/mL (50 - 75 nmol/L) Sufficiency 30 - 100 ng/mL (75 - 250 nmol/L) Toxicity >100 ng/mL (>250 nmol/L) Platelets bldOrdered By: Dr. Knight on 05-10-2022 Platelets (Bld) [#/Vol] 316 10*3/uL 150-450 [facility] Serum or plasma albumin negra urement (mass/volume)Ordered By: Dr. Knight on 05-10-2022 Albumin [Mass/Vol] 3.6 g/dL 3.2-5.0 [facility] Serum or plasma albumin/glob ulin mass ratioOrdered By: Dr. Knight on 05-10-2022 Albumin/Globulin [Mass ratio] 1.0 {ratio} 0.9-2.4 [facility] Serum or plasma calcium negra urement (mass/volume)Ordered By: Dr. Knight on 05-10-2022 Calcium [Mass/Vol] 9.3 mg/dL 8.5-10.1 [facility] Serum or plasma creatinine m easurement (mass/volume)Ordered By: Dr. Knight on 05-10-2022 Creatinine [Mass/Vol] 0.95 mg/dL 0.55-1.02 [facility] Comment on above: The validity of the calculated GFR & GFRAA in patients over 70 years has not been determined. Clinical correlation is essential. Serum or plasma urea nitroge n measurement (mass/volume)Ordered By: Dr. Knight on 05-10-2022 Urea nitrogen [Mass/Vol] 14 mg/dL 7-18 [facility] Thin prep Papanicolaou smear with manual screeningOrdered By: Dr. Knight on 05-10-2022 Thin prep Papanicolaou smear with manual screening 22 U/L 15-37 [facility] Thin prep Papanicolaou smear with manual screening 9 5-15 [facility] Absolute lymphocyte countOrd ered By: Dr. Knight on 01-29-2022 Lymphocytes Auto (Unsp spec) [#/Vol] 1.54 10*3/uL 0.83-4.51 [facility] Basophil percentageOrdered B y: Dr. Knight on 01-29-2022 Basophils/100 WBC (Bld) 0.9 % 0-1 [facility] Bilirubin [Mass/Vol] 0.30 mg/dL 0.20-1.00 [facility] Comment on above: For patients on eltr ombopag therapy, use of Dimension Dougherty TBIL is not recommended. Chloride [Moles/Vol] 106 mmol/L 98-107 [facility] Cholesterol [Mass/Vol] 206 mg/dL <200 [facility] Comment on above: <200 mg/dL Desirable 200-240 mg/dL Borderline >240 mg/dL High Risk Eosinophils/100 WBC (Bld) 2.5 % 0-5 [facility] Glucose [Mass/Vol] 93 mg/dL 74-106 [facility] Neutrophils (Bld) [#/Vol] 5.1 10*3/uL 2.0-7.7 [facility] Neutrophils/100 WBC (Bld) 67.9 % 47-70 [facility] Potassium [Moles/Vol] 4.0 mmol/L 3.5-5.1 [facility] Protein [Mass/Vol] 7.9 g/dL 6.4-8.2 [facility] Sodium [Moles/Vol] 140 mmol/L 136-145 [facility] Triglyceride [Mass/Vol] 83 mg/dL <199 [facility] Comment on above: The drugs N-Acetylcy steine and Metamizole may falsely depress this assay.Serum Triglycerides Reference Interval Normal <150 mg/dL Borderline high 150 - 199 mg/dL High 200 - 499 mg/dL Very High > or = 500 mg/dL WBC (Bld) [#/Vol] 7.5 10*3/uL 4.4-11.0 [facility] Blood erythrocytes count (nu mber/volume)Ordered By: Dr. Knight on 01-29-2022 RBC (Bld) [#/Vol] 5.34 10*6/uL 4.2-5.4 [facility] Blood hemoglobin measurement (mass/volume)Ordered By: Dr. Knight on 01-29-2022 Hemoglobin (Bld) [Mass/Vol] 16.3 g/dL 12.0-15.0 [facility] Blood lymphocytes/100 leukoc ytesOrdered By: Dr. Knight on 01-29-2022 Lymphocytes/100 WBC (Bld) 20.5 % 19-41 [facility] Blood monocytes/100 leukocyt esOrdered By: Dr. Knight on 01-29-2022 Monocytes/100 WBC (Bld) 7.9 % 0-10 [facility] Blood platelet mean volumeOr dered By: Dr. Knight on 01-29-2022 Platelet mean volume (Bld) [Entitic vol] 9.9 fL 6.2-12.0 [facility] Determination of erythrocyte mean corpuscular volume (MCV)Ordered By: Dr. Knight on 01-29-2022 MCV (RBC) [Entitic vol] 90.4 fL 81-99 [facility] Hematocrit Auto (Bld) [Volum e fraction]Ordered By: Dr. Knight on 01-29-2022 Hematocrit (Bld) [Volume fraction] 48.3 % 37-47 [facility] Laboratory - Chemistry and C hemistry - challengeOrdered By: Dr. Knight on 01-29-2022 ALP [Catalytic activity/Vol] 163 U/L 45-117 [facility] ALT [Catalytic activity/Vol] 95 U/L 13-56 [facility] CO2 [Moles/Vol] 28.0 mmol/L 21.0-32.0 [facility] Free T4 [Mass/Vol] 0.77 ng/dL 0.76-1.46 [facility] Globulin (S) [Mass/Vol] 4.5 g/dL 2.2-4.2 [facility] Transferrin [Mass/Vol] 255 mg/dL 192-364 [facility] Comment on above: Performed at: - [address] [id number] Director: Varun Jo PhD, Phone: [phone] Urea nitrogen/Creatinine [Mass ratio] 18.0 mg/mg 10-20 [facility] Laboratory - Hematology and Cell countsOrdered By: Dr. Knight on 01-29-2022 Erythrocyte distribution width (RBC) [Entitic vol] 43.3 fL 35.1-43.9 [facility] Erythrocyte distribution width (RBC) [Ratio] 13.1 % 11.6-14.6 [facility] Immature granulocytes/100 WBC (Bld) 0.300 % 0.0-0.9 [facility] Comment on above: IG% - Immature Granu locytes (promyelocytes, myelocytes and metamyelocytes) > 1% indicates that a LEFT SHIFT is Present. MCH (RBC) [Entitic mass] 30.5 pg 27.0-32.0 [facility] Nucleated RBC/100 WBC (Bld) [Ratio] 0 % 0-5 [facility] MCHC Auto (RBC) [Mass/Vol]Or dered By: Dr. Knight on 01-29-2022 MCHC (RBC) [Mass/Vol] 33.7 g/dL 32-36 [facility] No Panel InformationOrdered By: Dr. Knight on 01-29-2022 Estimated GFR (MDRD) Amer 81 mL/min >60 [facility] Comment on above: GFR Calc Estimated GFR (MDRD) Non-Af Amer 67 mL/min >60 [facility] Comment on above: Non- GFR Calc Thyroid Stimulating Hormone (TSH) 4.10 uIU/mL 0.358-3.74 [facility] Total Iron Binding Capacity 307 ug/dL 250-450 [facility] Vitamin D 25-Hydroxy 37.7 ng/mL [facility] Comment on above: Vitamin D 25(OH) Sta tus Range Deficiency <20 ng/mL (50nmol/L) Insufficiency 20 - 30 ng/mL (50 - 75 nmol/L) Sufficiency 30 - 100 ng/mL (75 - 250 nmol/L) Toxicity >100 ng/mL (>250 nmol/L) Platelets bldOrdered By: Dr. Knight on 01-29-2022 Platelets (Bld) [#/Vol] 316 10*3/uL 150-450 [facility] Serum or plasma albumin negra urement (mass/volume)Ordered By: Dr. Knight on 01-29-2022 Albumin [Mass/Vol] 3.4 g/dL 3.2-5.0 [facility] Serum or plasma albumin/glob ulin mass ratioOrdered By: Dr. Knight on 01-29-2022 Albumin/Globulin [Mass ratio] 0.8 {ratio} 0.9-2.4 [facility] Serum or plasma calcium negra urement (mass/volume)Ordered By: Dr. Knight on 01-29-2022 Calcium [Mass/Vol] 9.0 mg/dL 8.5-10.1 [facility] Serum or plasma cholesterol in HDL measurement (mass/volume)Ordered By: Dr. Knight on 01-29-2022 Cholesterol in HDL [Mass/Vol] 60 mg/dL >40 [facility] Comment on above: The drugs N-Acetylcy steine and Metamizole may falsely depress this assay. Reference Range HDL <40 mg/dL Low HDL Cholesterol HDL >or= 60 mg/dL High HDL Cholesterol Serum or plasma cholesterol in VLDL measurement (mass/volume)Ordered By: Dr. Knight on 01-29-2022 Cholesterol in VLDL [Mass/Vol] 17 mg/dL 5-40 [facility] Serum or plasma creatinine m easurement (mass/volume)Ordered By: Dr. Knight on 01-29-2022 Creatinine [Mass/Vol] 0.89 mg/dL 0.55-1.02 [facility] Comment on above: The validity of the calculated GFR & GFRAA in patients over 70 years has not been determined. Clinical correlation is essential. Serum or plasma ferritin rajesh surement (mass/volume)Ordered By: Dr. Knight on 01-29-2022 Ferritin [Mass/Vol] 70 ng/mL 8-252 [facility] Serum or plasma low density lipoprotein (LDL) cholesterol measurement (mass/volume)Ordered By: Dr. Knight on 01-29-2022 Cholesterol in LDL [Mass/Vol] 129 mg/dL 0-130 [facility] Serum or plasma urea nitroge n measurement (mass/volume)Ordered By: Dr. Knight on 01-29-2022 Urea nitrogen [Mass/Vol] 16 mg/dL 7-18 [facility] Thin prep Papanicolaou smear with manual screeningOrdered By: Dr. Knight on 01-29-2022 Thin prep Papanicolaou smear with manual screening 59 U/L 15-37 [facility] Thin prep Papanicolaou smear with manual screening 6 5-15 [facility] Absolute lymphocyte counton 12-19-2021 Lymphocytes Auto (Unsp spec) [#/Vol] 2.04 10*3/uL 0.83-4.51 [facility] Work Phone: Aldolase ser/plason 12-20-19 22 Aldolase [Catalytic activity/Vol] 7.9 mU/mL 3.3-10.3 [facility] Work Phone: Comment on above: Performed at: - [address] [id number] Director: Varun Jo PhD, Phone: [phone] at: - [facility] [address] [id number] Director: Kiko Dent MD, Phone: [phone] Atypical perinuclear antineu trophil cytoplasmic antibodies measurementon 12-19-2021 Neutrophil cytoplasmic Ab.perinuclear.atypical IF (S) [Titer] <1:20 titer Neg:<1:20 [facility] Work Phone: Comment on above: The atypical pANCA p attern has been observed in asignificant percentage of patients with ulcerative colitis,primary sclerosing cholangitis and autoimmune hepatitis. Basophil percentageon 2021 Basophil percentage < 10.0 umol/L 11-32 [facility] Work Phone: Basophil percentage < 0.2 AI 0.0-0.9 [facility] Work Phone: Basophils/100 WBC (Bld) 1.0 % 0-1 [facility] Work Phone: Bilirubin [Mass/Vol] 0.40 mg/dL 0.20-1.00 [facility] Work Phone: Comment on above: For patients on eltr ombopag therapy, use of Dimension Dougherty TBIL is not recommended. Chloride [Moles/Vol] 103 mmol/L 98-107 [facility] Work Phone: Eosinophils/100 WBC (Bld) 2.1 % 0-5 [facility] Work Phone: Glucose [Mass/Vol] 78 mg/dL 74-106 [facility] Work Phone: Neutrophils (Bld) [#/Vol] 4.4 10*3/uL 2.0-7.7 [facility] Work Phone: Neutrophils/100 WBC (Bld) 61.1 % 47-70 [facility] Work Phone: Potassium [Moles/Vol] 4.0 mmol/L 3.5-5.1 [facility] Work Phone: Protein [Mass/Vol] 7.9 g/dL 6.4-8.2 [facility] Work Phone: Sodium [Moles/Vol] 139 mmol/L 136-145 [facility] Work Phone: WBC (Bld) [#/Vol] 7.2 10*3/uL 4.4-11.0 [facility] Work Phone: Blood erythrocytes count (nu mber/volume)on 12-19-2021 RBC (Bld) [#/Vol] 5.61 10*6/uL 4.2-5.4 [facility] Work Phone: Blood hemoglobin measurement (mass/volume)on 12-19-2021 Hemoglobin (Bld) [Mass/Vol] 16.6 g/dL 12.0-15.0 [facility] Work Phone: Blood lymphocytes/100 leukoc yteson 12-19-2021 Lymphocytes/100 WBC (Bld) 28.2 % 19-41 [facility] Work Phone: [phone] Blood monocytes/100 leukocyt eson 12-19-2021 Monocytes/100 WBC (Bld) 7.5 % 0-10 [facility] Work Phone: Blood platelet mean volumeon 12-19-2021 Platelet mean volume (Bld) [Entitic vol] 10.4 fL 6.2-12.0 [facility] Work Phone: Determination of erythrocyte mean corpuscular volume (MCV)on 12-19-2021 MCV (RBC) [Entitic vol] 88.4 fL 81-99 [facility] Work Phone: Erythrocyte sedimentation ra oli 12-19-2021 ESR (Bld) [Velocity] 19 mm/h 0-30 [facility] Work Phone: Hematocrit Auto (Bld) [Volum e fraction]on 12-19-2021 Hematocrit (Bld) [Volume fraction] 49.6 % 37-47 [facility] Work Phone: INR in Blood by Coagulation assayon 12-19-2021 INR Coag (Bld) [Relative time] 1.0 {INR} [facility] Work Phone: Laboratory - Chemistry and C hemistry - challengeon 12-19-2021 ALP [Catalytic activity/Vol] 157 U/L 45-117 [facility] Work Phone: ALT [Catalytic activity/Vol] 77 U/L 13-56 [facility] Work Phone: Amylase [Catalytic activity/Vol] 214 U/L 5-55 [facility] Work Phone: CK [Catalytic activity/Vol] 101 U/L 26-192 [facility] Work Phone: CO2 [Moles/Vol] 30.0 mmol/L 21.0-32.0 [facility] Work Phone: Globulin (S) [Mass/Vol] 4.1 g/dL 2.2-4.2 [facility] Work Phone: Urea nitrogen/Creatinine [Mass ratio] 15.8 mg/mg 10-20 [facility] Work Phone: Laboratory - Coagulationon 0 12-19-2021 PT Coag (PPP) [Time] 12.7 s 11.7-14.9 [facility] Work Phone: Laboratory - Hematology and Cell countson 12-19-2021 Erythrocyte distribution width (RBC) [Entitic vol] 40.4 fL 35.1-43.9 [facility] Work Phone: Erythrocyte distribution width (RBC) [Ratio] 12.4 % 11.6-14.6 [facility] Work Phone: Immature granulocytes/100 WBC (Bld) 0.100 % 0.0-0.9 [facility] Work Phone: Comment on above: IG% - Immature Granu locytes (promyelocytes, myelocytes and metamyelocytes) > 1% indicates that a LEFT SHIFT is Present. MCH (RBC) [Entitic mass] 29.6 pg 27.0-32.0 [facility] Work Phone: Nucleated RBC/100 WBC (Bld) [Ratio] 0 % 0-5 [facility] Work Phone: MCHC Auto (RBC) [Mass/Vol]on 12-19-2021 MCHC (RBC) [Mass/Vol] 33.5 g/dL 32-36 [facility] Work Phone: No Panel Informationon 12-19 Centromere B Antibody <0.2 AI 0.0-0.9 [facility] Work Phone: Ceruloplasmin 27.6 mg/dL 19.0-39.0 [facility] Work Phone: Estimated GFR (MDRD) Amer 89 mL/min >60 [facility] Work Phone: Comment on above: GFR Calc Estimated GFR (MDRD) Non-Af Amer 73 mL/min >60 [facility] Work Phone: Comment on above: Non- GFR Calc Haptoglobin 88 mg/dL 37-355 [facility] Work Phone: PERCH MENDER Antibody 0.2 AI 0.0-0.9 [facility] Work Phone: Vitamin D 25-Hydroxy 44.8 ng/mL [facility] Work Phone: Comment on above: Vitamin D 25(OH) Sta tus Range Deficiency <20 ng/mL (50nmol/L) Insufficiency 20 - 30 ng/mL (50 - 75 nmol/L) Sufficiency 30 - 100 ng/mL (75 - 250 nmol/L) Toxicity >100 ng/mL (>250 nmol/L) Platelets bldon 12-19-2021 Platelets (Bld) [#/Vol] 281 10*3/uL 150-450 [facility] Work Phone: Serum DNA double strand anti body assay (units/volume)on 12-19-2021 DNA double strand Ab Qn (S) [IU]/mL 0-9 [facility] Work Phone: Comment on above: Negative <5 Equivoca l 5 - 9 Positive >9 Serum Anaid-1 antibody assay (u nits/volume)on 12-19-2021 Anaid-1 extractable nuclear Ab Qn (S) <0.2 AI 0.0-0.9 [facility] Work Phone: Serum Scl-70 extractable nuc lear antibody assay (units/volume)on 12-19-2021 SCL-70 extractable nuclear Ab Qn (S) 0.2 AI 0.0-0.9 [facility] Work Phone: Serum Santacruz extractable nucl ear antibody detectionon 12-19-2021 Santacruz extractable nuclear Ab Ql (S) <0.2 AI 0.0-0.9 [facility] Work Phone: Serum classic neutrophil cyt oplasmic antibody assay (units/volume)on 12-19-2021 Neutrophil cytoplasmic Ab.classic Qn (S) <1:20 titer Neg:<1:20 [facility] Work Phone: Serum mitochondria antibody detectionon 12-19-2021 Mitochondria Ab Ql (S) <20.0 Units 0.0-20.0 [facility] Work Phone: Comment on above: Negative 0.0 - 20.0 Equivocal 20.1 - 24.9 Positive >24.9Mitochondrial (M2) Antibodies are found in 90-96% ofpatients with primary biliary cirrhosis. Serum or plasma C reactive p rotein measurement (mass/volume)on 12-19-2021 CRP [Mass/Vol] mg/L 0.0-3.0 [facility] Work Phone: Comment on above: C-Reactive Protein ( CRP) provides useful information for thediagnosis, therapy and monitoring of inflammatory processesand associated diseases. For the evaluation of Relative Riskfor Cardiovascular Disease, a High Sensitivity CRP (HSCRP)should be ordered. Serum or plasma actin IgG an tibody assay (units/volume)on 12-19-2021 Actin IgG Qn 10 Units 0-19 [facility] Work Phone: Comment on above: Negative 0 - 19 Weak positive 20 - 30 Moderate to strong positive >30 Actin Antibodies are found in 52-85% of patients with autoimmune hepatitis or chronic active hepatitis and in 22% of patients with primary biliary cirrhosis. Serum or plasma albumin negra urement (mass/volume)on 12-19-2021 Albumin [Mass/Vol] 3.8 g/dL 3.2-5.0 [facility] Work Phone: Serum or plasma albumin/glob ulin mass ratioon 12-19-2021 Albumin/Globulin [Mass ratio] 0.9 {ratio} 0.9-2.4 [facility] Work Phone: Serum or plasma angiotensin converting enzyme measurement (enzymatic activity/volume)on 12-19-2021 Angiotensin converting enzyme [Catalytic activity/Vol] 40 U/L [facility] Work Phone: Serum or plasma bone alkalin e phosphatase/total alkaline phosphatase ratio (catalyticon 12-19-2021 ALP Bone [Catalytic fraction] 34 % [facility] Work Phone: Serum or plasma calcitriol m easurement (mass/volume)on 12-19-2021 1,25-dihydroxyvitamin D3 [Mass/Vol] 31.4 pg/mL 24.8-81.5 [facility] Work Phone: Comment on above: Please note refere nce interval changePerformed at: [facility] [employer] [id number] Director: Varun Jo PhD, Phone: [phone] at: [address] [id number] Director: Kiko Dent MD, Phone: [phone] Serum or plasma calcium negra urement (mass/volume)on 12-19-2021 Calcium [Mass/Vol] 9.1 mg/dL 8.5-10.1 [facility] Work Phone: Serum or plasma creatinine m easurement (mass/volume)on 12-19-2021 Creatinine [Mass/Vol] 0.82 mg/dL 0.55-1.02 Dee ster [facility] Work Phone: Comment on above: The validity of the calculated GFR & GFRAA in patients over 70 years has not been determined. Clinical correlation is essential. Serum or plasma ferritin rajesh surement (mass/volume)on 12-19-2021 Ferritin [Mass/Vol] 101 ng/mL 8 [facility] Work Phone: Serum or plasma intestinal a lkaline phosphatase/total alkaline phosphatase ratio (nicko 12-19-2021 ALP Intest [Catalytic fraction] 1 % 0-18 [facility] Work Phone: Serum or plasma liver alkali ne phosphatase/total alkaline phosphatase ratio (catalytion 12-19-2021 ALP Liver [Catalytic fraction] 65 % 18-85 [facility] Work Phone: Serum or plasma urea nitroge n measurement (mass/volume)on 12-19-2021 Urea nitrogen [Mass/Vol] 13 mg/dL 7-18 [facility] Work Phone: Serum perinuclear neutrophil cytoplasmic antibody titer by immunofluorescenceon 12-19-2021 Neutrophil cytoplasmic Ab.perinuclear IF (S) [Titer] <1:20 titer Neg:<1:20 [facility] Work Phone: Comment on above: The presence of posi tive fluorescence exhibiting P-ANCA orC-ANCA patterns alone is not specific for the diagnosis ofWegener's Granulomatosis (WG) or microscopic polyangiitis.Decisions about treatment should not be based solely onANCA IFA results. The [employer] ANCA Group Consensusrecommends follow up testing of positive sera with both SD-3 and MPO-ANCA enzyme immunoassays. As many as 5% serumsamples are positive only by EIA. Ref. AM J Clin Lapsjg1150;111:507-513. Thin prep Papanicolaou smear with manual screeningon 12-19-2021 Thin prep Papanicolaou smear with manual screening 51 U/L 15-37 [facility] Work Phone: Thin prep Papanicolaou smear with manual screening 6 5-15 [facility] Work Phone: Thin prep Papanicolaou smear with manual screening 216 U/L 84-246 [facility] Work Phone: Thin prep Papanicolaou smear with manual screening 163 IU/L 44-121 [facility] Work Phone: Thin prep Papanicolaou smear with manual screening 130 ug/dL 80-158 [facility] Work Phone: Comment on above: Detection Limit = 5 Iron measurement (mass/mass) on 09-28-2021 Iron (Unsp spec) [Mass/Mass] 90 ug/dL 50-170 [facility] Work Phone: Laboratory - Chemistry and C hemistry - challengeon 09-28-2021 Transferrin [Mass/Vol] 232 mg/dL 192-364 [facility] Work Phone: Comment on above: Performed at: [place] [id number] Director: Varun Jo PhD, Phone: [phone] No Panel Informationon 09-28 Total Iron Binding Capacity 306 ug/dL 250-450 [facility] Work Phone: Serum or plasma ferritin rajesh surement (mass/volume)on 09-28-2021 Ferritin [Mass/Vol] 132 ng/mL 8-252 [facility] Work Phone: Serum or plasma iron saturat ion measurement (mass fraction)on 09-28-2021 Iron saturation [Mass fraction] 29.4 % 15.0-55.0 [facility] Work Phone: Absolute lymphocyte counton 09-27-2021 Lymphocytes Auto (Unsp spec) [#/Vol] 1.30 10*3/uL 0.83-4.51 [facility] Work Phone: Basophil percentageon 2021 Basophils/100 WBC (Bld) 1.4 % 0-1 [facility] Work Phone: [phone] Bilirubin [Mass/Vol] 0.50 mg/dL 0.20-1.00 [facility] Work Phone: Comment on above: For patients on eltr ombopag therapy, use of Dimension Dougherty TBIL is not recommended. Chloride [Moles/Vol] 107 mmol/L 98-107 [facility] Work Phone: Eosinophils/100 WBC (Bld) 4.2 % 0-5 [facility] Work Phone: Glucose [Mass/Vol] 95 mg/dL 74-106 [facility] Work Phone: Neutrophils (Bld) [#/Vol] 2.8 10*3/uL 2.0-7.7 [facility] Work Phone: [phone] Neutrophils/100 WBC (Bld) 55.4 % 47-70 [facility] Work Phone: Potassium [Moles/Vol] 4.1 mmol/L 3.5-5.1 [facility] Work Phone: Protein [Mass/Vol] 7.3 g/dL 6.4-8.2 [facility] Work Phone: Sodium [Moles/Vol] 140 mmol/L 136-145 [facility] Work Phone: [phone] WBC (Bld) [#/Vol] 5.0 10*3/uL 4.4-11.0 [facility] Work Phone: [phone] Blood erythrocytes count (nu mber/volume)on 09-27-2021 RBC (Bld) [#/Vol] 5.12 10*6/uL 4.2-5.4 [facility] Work Phone: [phone] Blood hemoglobin measurement (mass/volume)on 09-27-2021 Hemoglobin (Bld) [Mass/Vol] 15.3 g/dL 12.0-15.0 [facility] Work Phone: Blood lymphocytes/100 leukoc yteson 09-27-2021 Lymphocytes/100 WBC (Bld) 25.9 % 19-41 [facility] Work Phone: Blood monocytes/100 leukocyt eson 09-27-2021 Monocytes/100 WBC (Bld) 12.9 % 0-10 [facility] Work Phone: Blood platelet mean volumeon 09-27-2021 Platelet mean volume (Bld) [Entitic vol] 10.3 fL 6.2-12.0 [facility] Work Phone: Determination of erythrocyte mean corpuscular volume (MCV)on 09-27-2021 MCV (RBC) [Entitic vol] 90.4 fL 81-99 [facility] Work Phone: Hematocrit Auto (Bld) [Volum e fraction]on 09-27-2021 Hematocrit (Bld) [Volume fraction] 46.3 % 37-47 [facility] Work Phone: Laboratory - Chemistry and C hemistry - challengeon 09-27-2021 ALP [Catalytic activity/Vol] 179 U/L 45-117 [facility] Work Phone: ALT [Catalytic activity/Vol] 125 U/L 13-56 [facility] Work Phone: CO2 [Moles/Vol] 29.0 mmol/L 21.0-32.0 [facility] Work Phone: Free T4 [Mass/Vol] 1.18 ng/dL 0.76-1.46 [facility] Work Phone: Globulin (S) [Mass/Vol] 4.0 g/dL 2.2-4.2 [facility] Work Phone: Urea nitrogen/Creatinine [Mass ratio] 17.8 mg/mg 10-20 [facility] Work Phone: Laboratory - Hematology and Cell countson 09-27-2021 Erythrocyte distribution width (RBC) [Entitic vol] 42.8 fL 35.1-43.9 [facility] Work Phone: Erythrocyte distribution width (RBC) [Ratio] 12.9 % 11.6-14.6 [facility] Work Phone: Immature granulocytes/100 WBC (Bld) 0.200 % 0.0-0.9 [facility] Work Phone: Comment on above: IG% - Immature Granu locytes (promyelocytes, myelocytes and metamyelocytes) > 1% indicates that a LEFT SHIFT is Present. MCH (RBC) [Entitic mass] 29.9 pg 27.0-32.0 [facility] Work Phone: Nucleated RBC/100 WBC (Bld) [Ratio] 0 % 0-5 [facility] Work Phone: MCHC Auto (RBC) [Mass/Vol]on 09-27-2021 MCHC (RBC) [Mass/Vol] 33.0 g/dL 32-36 [facility] Work Phone: No Panel Informationon 09-27 Estimated GFR (MDRD) Amer 86 mL/min >60 [facility] Work Phone: Comment on above: GFR Calc Estimated GFR (MDRD) Non-Af Amer 71 mL/min >60 [facility] Work Phone: Comment on above: Non- GFR Calc Vitamin D 25-Hydroxy 39.3 ng/mL [facility] Work Phone: Comment on above: Vitamin D 25(OH) Sta tus Range Deficiency <20 ng/mL (50nmol/L) Insufficiency 20 - 30 ng/mL (50 - 75 nmol/L) Sufficiency 30 - 100 ng/mL (75 - 250 nmol/L) Toxicity >100 ng/mL (>250 nmol/L) Platelets bldon 09-27-2021 Platelets (Bld) [#/Vol] 293 10*3/uL 150-450 [facility] Work Phone: Serum or plasma albumin negra urement (mass/volume)on 09-27-2021 Albumin [Mass/Vol] 3.3 g/dL 3.2-5.0 [facility] Work Phone: Serum or plasma albumin/glob ulin mass ratioon 09-27-2021 Albumin/Globulin [Mass ratio] 0.8 {ratio} 0.9-2.4 [facility] Work Phone: Serum or plasma calcium negra urement (mass/volume)on 09-27-2021 Calcium [Mass/Vol] 9.1 mg/dL 8.5-10.1 [facility] Work Phone: Serum or plasma creatinine m easurement (mass/volume)on 09-27-2021 Creatinine [Mass/Vol] 0.84 mg/dL 0.55-1.02 [facility] Work Phone: Comment on above: The validity of the calculated GFR & GFRAA in patients over 70 years has not been determined. Clinical correlation is essential. Serum or plasma urea nitroge n measurement (mass/volume)on 09-27-2021 Urea nitrogen [Mass/Vol] 15 mg/dL 7-18 [facility] Work Phone: Thin prep Papanicolaou smear with manual screeningon 09-27-2021 Thin prep Papanicolaou smear with manual screening 86 U/L 15-37 [facility] Work Phone: Thin prep Papanicolaou smear with manual screening 4 5-15 [facility] Work Phone: Absolute lymphocyte counton 06-28-2021 Lymphocytes Auto (Unsp spec) [#/Vol] 1.25 10*3/uL 0.83-4.51 [facility] Work Phone: Basophil percentageon 2021 Basophils/100 WBC (Bld) 1.3 % 0-1 [facility] Work Phone: Bilirubin [Mass/Vol] 0.50 mg/dL 0.20-1.00 [facility] Work Phone: Comment on above: For patients on eltr ombopag therapy, use of Dimension Dougherty TBIL is not recommended. Chloride [Moles/Vol] 108 mmol/L 98-107 [facility] Work Phone: Eosinophils/100 WBC (Bld) 5.0 % 0-5 [facility] Work [phone] Glucose [Mass/Vol] 98 mg/dL 74-106 [facility] [phone] Neutrophils (Bld) [#/Vol] 3.0 10*3/uL 2.0-7.7 [facility] Work Phone: Neutrophils/100 WBC (Bld) 57.5 % 47-70 [facility] Work Phone: Potassium [Moles/Vol] 4.0 mmol/L 3.5-5.1 [facility] Work [facility]: Protein [Mass/Vol] 7.3 g/dL 6.4-8.2 [facility] Work Phone: Sodium [Moles/Vol] 139 mmol/L 136-145 [facility] Work Phone: WBC (Bld) [#/Vol] 5.2 10*3/uL 4.4-11.0 [facility] Work Phone: Blood erythrocytes count (nu mber/volume)on 06-28-2021 RBC (Bld) [#/Vol] 5.32 10*6/uL 4.2-5.4 [facility] Work Phone: Blood hemoglobin measurement (mass/volume)on 06-28-2021 Hemoglobin (Bld) [Mass/Vol] 16.2 g/dL 12.0-15.0 [facility] Work Phone: Blood lymphocytes/100 leukoc yteson 06-28-2021 Lymphocytes/100 WBC (Bld) 24.1 % 19-41 [facility] Work Phone: Blood monocytes/100 leukocyt eson 06-28-2021 Monocytes/100 WBC (Bld) 11.9 % 0-10 [facility] Work Phone: Blood platelet mean volumeon 06-28-2021 Platelet mean volume (Bld) [Entitic vol] 10.9 fL 6.2-12.0 [facility] Work Phone: Determination of erythrocyte mean corpuscular volume (MCV)on 06-28-2021 MCV (RBC) [Entitic vol] 89.1 fL 81-99 [facility] Work Phone: Hematocrit Auto (Bld) [Volum e fraction]on 06-28-2021 Hematocrit (Bld) [Volume fraction] 47.4 % 37-47 [facility] Work Phone: Laboratory - Chemistry and C hemistry - challengeon 06-28-2021 ALP [Catalytic activity/Vol] 133 U/L 45-117 [facility] Work Phone: ALT [Catalytic activity/Vol] 55 U/L 13-56 [facility] Work Phone: CO2 [Moles/Vol] 26.0 mmol/L 21.0-32.0 [facility] Work Phone: Free T4 [Mass/Vol] 0.78 ng/dL 0.76-1.46 [facility] Work Phone: Globulin (S) [Mass/Vol] 3.9 g/dL 2.2-4.2 [facility] Work Phone: Urea nitrogen/Creatinine [Mass ratio] 15.3 mg/mg 10-20 [facility] Work Phone: Laboratory - Hematology and Cell countson 06-28-2021 Erythrocyte distribution width (RBC) [Entitic vol] 41.0 fL 35.1-43.9 [facility] Work Phone: Erythrocyte distribution width (RBC) [Ratio] 12.5 % 11.6-14.6 [facility] Work Phone: Immature granulocytes/100 WBC (Bld) 0.200 % 0.0-0.9 [facility] Work Phone: Comment on above: IG% - Immature Granu locytes (promyelocytes, myelocytes and metamyelocytes) > 1% indicates that a LEFT SHIFT is Present. MCH (RBC) [Entitic mass] 30.5 pg 27.0-32.0 [facility] Work Phone: Nucleated RBC/100 WBC (Bld) [Ratio] 0 % 0-5 [facility] Work Phone: MCHC Auto (RBC) [Mass/Vol]on 06-28-2021 MCHC (RBC) [Mass/Vol] 34.2 g/dL 32-36 [facility] Work Phone: No Panel Informationon 06-28 Estimated GFR (MDRD) Amer 78 mL/min >60 [facility] Work Phone: Comment on above: GFR Calc Estimated GFR (MDRD) Non-Af Amer 65 mL/min >60 [facility] Work Phone: Comment on above: Non- GFR Calc Thyroid Stimulating Hormone (TSH) 3.96 uIU/mL 0.358-3.74 [facility] Work Phone: Vitamin D 25-Hydroxy 49.2 ng/mL [facility] Work Phone: Comment on above: Vitamin D 25(OH) Sta tus Range Deficiency <20 ng/mL (50nmol/L) Insufficiency 20 - 30 ng/mL (50 - 75 nmol/L) Sufficiency 30 - 100 ng/mL (75 - 250 nmol/L) Toxicity >100 ng/mL (>250 nmol/L) Platelets bldon 06-28-2021 Platelets (Bld) [#/Vol] 285 10*3/uL 150-450 [facility] Work Phone: Serum or plasma albumin negra urement (mass/volume)on 06-28-2021 Albumin [Mass/Vol] 3.4 g/dL 3.2-5.0 [facility] Work Phone: Serum or plasma albumin/glob ulin mass ratioon 06-28-2021 Albumin/Globulin [Mass ratio] 0.9 {ratio} 0.9-2.4 [facility] Work Phone: Serum or plasma calcium negra urement (mass/volume)on 06-28-2021 Calcium [Mass/Vol] 9.1 mg/dL 8.5-10.1 [facility] Work Phone: Serum or plasma creatinine m easurement (mass/volume)on 06-28-2021 Creatinine [Mass/Vol] 0.92 mg/dL 0.55-1.02 [facility] Work Phone: Comment on above: The validity of the calculated GFR & GFRAA in patients over 70 years has not been determined. Clinical correlation is essential. Serum or plasma urea nitroge n measurement (mass/volume)on 06-28-2021 Urea nitrogen [Mass/Vol] 14 mg/dL 7-18 [facility] Work Phone: Thin prep Papanicolaou smear with manual screeningon 06-28-2021 Thin prep Papanicolaou smear with manual screening 32 U/L 15-37 [facility] Work Phone: Thin prep Papanicolaou smear with manual screening 5 5-15 [facility] Work Phone: CNOVon 04-25-2017 CNOV Office Visit (GASTWC) LEONELA MAY RA ([id number]) 1950 FDate Time Provider Kvvdthecng49/29/17 8:20 AM TY CRENSHAW (HOA) [facility] During your visit today, we recorded the [...] by Dr. Ross for upper endoscopy and kvyqmfzsskw97/11/17. The procedure report has been reviewed and [...] other than HPI.PAST MEDICAL HISTORYDiagnosis Date- Dysphagia, unspecified(727.20)- Esophagitis, unspecified- Internal hemorrhoids without mention of complication- Osteoarthritis- PMH - PAST MEDICAL HISTORY OF DDD in cervical disc- Stricture and stenosis of esophagusPAST SURGICAL HISTORYProcedure Laterality Date- COLONOSCOP W/ OR W/O [facility] SPEC 07/31/06- COLONOSCOP W/ OR W/O [facility] SPEC 04/07/2017 repeat 10 years- CRANIOTOMY,NEUROELEC,ALISIA ICAL [...] Brother- stomach issues [OTHER] BrotherCurrent Outpatient Prescriptions:glucosam-ms j-cqivoahmv-vuv D3 750 mg-125 mg -600 mg tab [...] patient. I have reviewed theinformation that the ASBESTOS HAZARD ABATEMENT WORKER entered for this encounter. Greater than 25 [...] anti-spasmotic.Follow up as needed.Referring Provider: RYAN ROSS [[id number]]Allergies As of Date: 04/25/2017 Noted Allergy ReactionDILANTIN (PHENYTOIN SODIUM EXTEND*06/30/2006TRIMPEX (TRIMETHOPRIM) 06/30/2006Date Reviewed: 04/25/2017Reviewed by: Ai Small ASBESTOS HAZARD ABATEMENT WORKER - Fully AssessedReason for Visit: follow up procedure colon/EGD [facility] 04-07-17 [Other]Primary Visit Diagnosis:Gastroesophagea l reflux disease [...] by TY CRENSHAW CNP on 04/25/17 [facility] PROGRESSon 04-25-2017 PROGRESS HNO ID: [id number] thor: Ty (Director Of Graduate Admissions) ThorpeService: (none)Author Type: Nurse PractitionerType: Progress NotesFiled: 04/25/2017 9:02 AMNote Text:Rachel May a 66 year old female who is returning for follow upregarding dysphagia. I saw the patient on 04/01/17 to discuss screeningcolonoscopy. That note has been reviewed.The patient was seen by Dr. Ross for upper endoscopy and jgxbilzndvp25/11/17. The procedure report has been reviewed and [...] HISTORYProcedure Laterality Date- COLONOSCOP W/ OR W/O [facility] SPEC 07/31/06- COLONOSCOP W/ OR W/O [facility] SPEC 04/07/2017 repeat 10 years- CRANIOTOMY,NEUROELEC,ALISIA ICAL 1993- DANDC, DIAG AND/OR THERAPEUTIC 1974 Dilation AND curettage- EGD W/O [facility] SPECIMEN W/BX 02/18/11 with balloon dilation- EGD W/O OR W/BRUSH/WASH 04/07/2017 EGD- LAMINECTOMY,>2 SGMT,LUMBAR 2004- PAST SURGICAL HISTORY OF 2004 wrist surgery right- PAST SURGICAL HISTORY OF 2009 wrist surgery leftFAMILY HISTORYProblem Relation Age of Onset- Colon Cancer Other COUSIN ON MOTHERS SIDE- Heart Father- Arthritis Sister- IBS [OTHER] Sister- eye problems [OTHER] Brother- stomach issues [OTHER] BrotherCurrent Outpatient Prescriptions:glucosam-ms d-ynwrvozet-anb D3 750 mg-125 mg -600 mg tab [...] patient. I have reviewedthe information that the [employer]BE[employer] HAZARD ABATEMENT WORKER entered for this encounter. Greater than 25minutes total time used this visit to review old chart, review newinformation, update current history and evaluate patient. A majority ofthe time was spent in discussion and counseling to formulate the plan.Ty Crenshaw RN [facility] HISTORY PHYSICALon 7 Cholesterol HNO ID: [id number] thor: Ryan Savage: GastroenterologyAuthor Type: PhysicianType: HANDPFiled: [...] 07, 2017 : 2:45 PM PAGER: Normal [facility] NURSING PROGon 04-07-2017 NURSING PROG HNO ID: [id number] thor: DAMARI Hernandez Rnervice: (none)Author Type: Registered NurseType: Nursing Progress NoteFiled: 04/07/2017 4:12 PMNote Text:Patient did not experience a fall prior to discharge.Patient did not experience a burn prior to discharge.Genesis Cardenas RN [facility] NURSING PROG HNO ID: [id number] Author: Genesis Cardenas RN Service: (none) Author Type: Registered Nurse Type: Nursing Progress Note Filed: 04/07/2017 3:39 PM Note Text: Patient sitting up in bed tolerating juice without problems. Genesis Cardenas RN [facility] NURSING PROG HNO ID: [id number] thor: Ana Cristina Hernandez Rn: (none)Author Type: Registered NurseType: Nursing Progress NoteFiled: 04/07/2017 3:30 PMNote Text:Patient arrived to PACU, on left side, abdomen soft. Patient restingcomfortably.Bhumi Cardenas RN [facility] NURSING PROG HNO ID: [id number] thor: Maria Victoria AlvaradoRnVero Santanaice: NursingAuthor Type: Registered NurseType: Nursing Progress NoteFiled: 04/07/2017 3:19 PMNote Text:Preoperative order for IV Antibiotic Prophylaxis is N/A.Patient did not experience a fall within the Intraoperative proceduralarea.Patient did not experience a burn within the Intraoperative proceduralarea.Maria Victoria Harmon RN [facility] NURSING PROG HNO ID: [id number] thor: Ana Cristina Hernandez Rn: (none)Author Type: [...] bedside and allquestions were answered.Eliecer Hernandez RN [facility] PT EDon 04-07-2017 PT ED HNO ID: [id number] thor: Ana Cristina Hernandez Rn: (none)Author Type: [...] Genesis Cardenas RN In Department: AMBULATORYSURGERY Normal [facility] SURGICAL PATHOLOGYon 017 SURGICAL PATHOLOGY [facility]: [id number] Physician: RYAN ROSS MD _FINAL DIAGNOSIS1. Stomach, [...] submitted in one cassette.Gross examination performed at [facility], [address] [place] [id number] 04/08/2017 2:09:30 AMPatient ID #: [id number] of Report: 04/11/2017Date of Procedure: 04/07/2017Date of Receipt: 04/07/2017Submitted by: RYAN ROSS MDLocation: [id number] interpretation performed at [address] [address]. Normal [facility] HOSPon 04-02-2017 HOSP Patient:Leonela May ra KMRN: Height:5' 1(1.549 m)Weight:144 lb 12.8 oz (65.681 kg)Outpatient Medications as of 04/07/17:qzdlyums-bsy-cev ndroit-vit D3 750 mg-125 mg -600 mg [...] days for the following basenames: K,HCTProgress Notes ([facility]):Ai Small LPN 04/02/2017 8:04 [...] Signed By: Ai Gregg department: Gastroenterology Normal [facility] CNOVon 04-01-2017 CNOV Office Visit (GAST) LEONELA MAY RA ([id number]) 1950 [facility] Time Provider Stbexicxag09/5/17 4:00 PM TY CRENSHAW (GAS METER CHECKER) [facility] During your visit today, we recorded the [...] There has not been melena. No abdominal pain.FREIGHT SHIPPING AGENT: Negative for abnormal vaginal bleeding, abnormal vaginal [...] HISTORYProcedure Laterality Date- COLONOSCOP W/ OR W/O [facility] SPEC 07/31/06- CRANIOTOMY,NEUROELEC,ALISIA ICAL 1993- DANDamp;C, DIAG AND/OR THERAPEUTIC 1974 Dilation ANDamp; curettage- EGD W/O [facility] SPECIMEN W/BX 02/18/11 with balloon dilation- LAMINECTOMY,ANDgt;2 SGMT,LUMBAR 2004- PAST SURGICAL HISTORY OF 2004 wrist surgery right- PAST SURGICAL HISTORY OF 2010 wrist surgery leftFAMILY HISTORYProblem Relation Age of Onset- Colon Cancer Other COUSIN ON MOTHERS SIDE- Heart Father- Arthritis Sister- IBS [OTHER] Sister- eye problems [OTHER] Brother- stomach issues [OTHER] BrotherCurrent Outpatient Prescriptions:glucosam-ms a-yuixvaklw-uil D3 750 mg-125 mg -600 mg tab [...] patient. I have read theinformation that the ASBESTOS HAZARD ABATEMENT WORKER documented in this encounter. This visit was [...] (TRIMETHOPRIM) 06/30/2006Date Reviewed: 04/01/2017Reviewed by: Ai Small [employer]BE[employer]OS HAZARD ABATEMENT WORKER - Fully AssessedReason for Visit: colon consult [Other]Primary Visit Diagnosis:Dysphagia, unspecified type [R13.10] Other Visit Diagnosis:Encounter for screening for malignant neoplasm of colon [Z12.11]Order(s):EGD [5107105] Order #: [id number] FUTURE COLONOSCOPY SCRN NOT HIGH RISK [[id number]] Order #: [id number] FUTURE peg 3350-electrolytes (COLYTE) 240-22.72-6.72 -5.84 gram [...] by TY CRENSHAW CNP on 04/01/17 Normal [facility] HISTORY PHYSICALon HISTORY PHYSICAL HNO ID: [id number] thor: Ty (Director Of Graduate Admissions) LoganpeService: (none)Author Type: Nurse PractitionerType: HANDPFiled: 04/01/2017 [...] bleeding. There has not beenmelena. No abdominal pain.FREIGHT SHIPPING AGENT: Negative for abnormal vaginal bleeding, abnormal vaginal [...] HISTORYProcedure Laterality Date- COLONOSCOP W/ OR W/O [facility] SPEC 07/31/06- CRANIOTOMY,NEUROELEC,ALISIA ICAL 1993- DANDC, DIAG AND/OR THERAPEUTIC 1974 Dilation AND curettage- EGD W/O [facility] SPECIMEN W/BX 02/18/11 with balloon dilation- LAMINECTOMY,>2 SGMT,LUMBAR 2004- PAST SURGICAL HISTORY OF 2004 wrist surgery right- PAST SURGICAL HISTORY OF 2010 wrist surgery leftFAMILY HISTORYProblem Relation Age of Onset- Colon Cancer Other COUSIN ON MOTHERS SIDE- Heart Father- Arthritis Sister- IBS [OTHER] Sister- eye problems [OTHER] Brother- stomach issues [OTHER] BrotherCurrent Outpatient Prescriptions:glucosam-ms g-qjkdcyvsv-wyl D3 750 mg-125 mg -600 mg tab [...] patient. I have read theinformation that the ASBESTOS HAZARD ABATEMENT WORKER documented in this encounter. This visit was atleast 30 minutes in length with a majority of the time spent in review ofthe past records with the patient, discussion and counseling.Ty Crenshaw RN QUALIFIED CRAFT WORKER ELECTRICIAN Normal [facility] Vital Signs Date Time Vital Sign Value Performing Clinician Hector hernandez 12-20-2024 09:11-0400 Body height 149.[address] Tyron Knight MD Work Phone: [facility] 12-20-2024 09:07-0400 Body mass index (BMI) [Ratio] 29.9 kg/m2 Dr. Tyron Knight MD Work Phone: [facility] 12-20-2024 09:07-0400 Body weight 67.[address] Tyron Knight MD Work Phone: [facility] 12-20-2024 09:07-0400 Diastolic blood pressure 62 mm[Hg] Dr. Tyron Knight MD Work Phone: [facility] 12-20-2024 09:07-0400 Systolic blood pressure 106 mm[Hg] Dr. Tyron Knight MD Work Phone: [facility] 12-03-2024 15:33-0400 Body height 149.[address] Tyron Knight MD Work Phone: [facility] 12-03-2024 15:33-0400 Body mass index (BMI) [Ratio] 30.1 kg/m2 Dr. Tyron Knight MD Work Phone: [facility] 12-03-2024 15:33-0400 Body weight 67.[address] Tyron Knight MD Work Phone: [facility] 12-03-2024 15:33-0400 Diastolic blood pressure 88 mm[Hg] Dr. Tyron Knight MD Work Phone: [facility] 12-03-2024 15:33-0400 Heart rate 72 /min Dr. Tyron Knight MD Work Phone: [facility] 12-03-2024 15:33-0400 SaO2% (BldA) [Mass fraction] 98 % Dr. Tyron Knight MD Work Phone: [facility] 12-03-2024 15:33-0400 Systolic blood pressure 133 mm[Hg] Dr. Tyron Knight MD Work Phone: 3(400)807-439915 [place] [address] 04-03-2023 10:30-0500 Body height 157.[address] Tyron Knight Work Phone: 8(220)698-221515 [place] [address] 04-03-2023 10:30-0500 Body weight 70.[address] Tyron Knight Work Phone: 8(911)546-637473 [address] 02-21-2023 08:54-0400 Body mass index (BMI) [Ratio] 28.3 kg/m2 Dr. Tyron Knight Work Phone: 7(847)373-272415 [place] [address] 02-21-2023 08:54-0400 Body weight 70.[address] Tyron Knight Work Phone: 8(883)850-917473 [address] 02-21-2023 08:54-0400 Diastolic blood pressure 85 mm[Hg] Dr. Tyron Knight Work Phone: 1(716)316-987373 [address] 02-21-2023 08:54-0400 Heart rate 68 /min Dr. Tyron Knight Work Phone: 4(142)014-928815 [place] [address] 02-21-2023 08:54-0400 SaO2% (BldA) [Mass fraction] 96 % Dr. Tyron Knight Work Phone: 1(826)290-246515 [place] [address] 02-21-2023 08:54-0400 Systolic blood pressure 148 mm[Hg] Dr. Tyron Knight Work Phone: [facility] 11-21-2022 12:53-0400 Body height 157.[address] Tyron Knight Work Phone: [facility] 11-21-2022 12:53-0400 Body mass index (BMI) [Ratio] 27.4 kg/m2 Dr. Tyron Knight Work Phone: [facility] 11-21-2022 12:53-0400 Body weight 68.[address] Tyron Knight Work Phone: [facility] 10-18-2022 09:34-0400 Body height 152.[address] Tyron Knight Work Phone: [facility] 10-18-2022 09:34-0400 Body mass index (BMI) [Ratio] 29.7 kg/m2 Dr. Tyron Knight Work Phone: 2(828)894-801715 [place] [address] 10-18-2022 09:34-0400 Body weight 68.[address] Tyron Knight Work Phone: 5(550)584-649115 [place] [address] 05-17-2022 09:32-0500 Body height 154.[address] Tyron Knight Work Phone: 5(861)568-778215 [place] [address] 05-17-2022 09:32-0500 Body mass index (BMI) [Ratio] 29 kg/m2 Dr. Tyron Knight Work Phone: 8(614)178-649115 [place] [address] 05-17-2022 09:32-0500 Body weight 69.[address] Tyron Knight Work Phone: [facility] 05-17-2022 09:32-0500 Diastolic blood pressure 78 mm[Hg] Dr. Tyron Knight Work Phone: [facility] 05-17-2022 09:32-0500 Heart rate 57 /min Dr. Tyron Knight Work Phone: [facility] 05-17-2022 09:32-0500 SaO2% (BldA) [Mass fraction] 94 % Dr. Tyron Knight Work Phone: [facility] 05-17-2022 09:32-0500 Systolic blood pressure 120 mm[Hg] Dr. Tyron Knight Work Phone: [facility] 05-02-2022 09:22-0500 Body temperature 98 [degF] Dr. Tyron Knight Work Phone: [facility] 05-02-2022 09:22-0500 Diastolic blood pressure 76 mm[Hg] Dr. Tyron Knight Work Phone: [facility] 05-02-2022 09:22-0500 Heart rate 76 /min Dr. Tyron Knight Work Phone: [facility] 05-02-2022 09:22-0500 Respiratory rate 16 /min Dr. Tyron Knight Work Phone: [facility] 05-02-2022 09:22-0500 SaO2% (BldA) [Mass fraction] 98 % Dr. Tyron Knight Work Phone: [facility] 05-02-2022 09:22-0500 Systolic blood pressure 119 mm[Hg] Dr. Tyron Knight Work Phone: [facility] 05-02-2022 07:55-0500 Body mass index (BMI) [Ratio] 29.1 kg/m2 Dr. Tyron Knight Work Phone: [facility] 05-02-2022 07:55-0500 Body weight 69.[address] Tyron Knight Work Phone: [facility] Encounters Encounter Date Encounter Type Care Provider Facility Start: 02-09-2025 ambulatory [facility] Facility: [facility] Start: 02-03-2025 End: 02-03-2025 ambulatory [facility] Facility:[facility] Start: 12-20-2024 End: 12-20-2024 Patient encounter procedure Doris KEENAN -[facility] Work Phone: Start: 12-20-2024 End: 12-20-2024 Patient encounter status Doris KEENAN [facility] Start: 12-20-2024 End: 12-20-[address] Tyron Knight MD Work Phone: [facility] Start: 12-03-2024 End: 12-03-[address] Usman Mares MD -[facility] Work Phone: Start: 12-03-2024 End: 12-03-[address] Tyron Knight MD Work Phone: -[facility] Start: 12-01-2024 End: 12-01-[address] Tyron Knight MD Work Phone: -Outpatient Breast Imaging Start: 12-01-2024 End: 12-01-[address] Tyron Knight MD -[facility]patient [facility] Work Phone: Start: 12-01-2024 End: 12-01-2024 ambulatory Tyron Knight Facility:[facility] Start: 11-23-2024 End: 11-23-[address] Tyron Knight MD Work Phone: -Outpatient Bone Densitometry Start: 11-23-2024 End: 11-23-[address] Tyron Knight MD -[facility]patient [facility] Work Phone: Start: 11-23-2024 End: 11-23-2024 ambulatory Tyron Knight Facility:[facility] Start: 11-08-2024 End: 11-08-[address] Tyron Knight MD Work Phone: -Ultrasound [facility] Start: 11-08-2024 End: 11-08-[address] Usman Mares MD -Ultrasound [facility] Work Phone: Start: 11-08-2024 End: 11-08-2024 ambulatory Tyron Knight Facility:[facility] Start: 11-01-2024 End: 11-01-[address] Tyron Knight MD Work Phone: -Laboratory Start: 11-01-2024 End: 11-01-[address] Usman Mares MD -Laboratory Work Phone: Start: 11-01-2024 End: 11-01-2024 ambulatory [facility] Facility:[facility] Start: 06-07-2024 End: 06-08-2024 ambulatory [facility] Facility:[facility] Start: 06-03-2024 End: 06-03-2024 ambulatory Tyron Knight Facility:[facility] Start: 05-01-2023 End: 05-01-[address] Tyron Knight Work Phone: [facility] Work Phone: Start: 05-01-2023 End: 05-01-[address] Tyron Knight Work Phone: [facility] Start: 04-03-2023 End: 04-27-[address] Tyron Knight Work Phone: [facility] Work Phone: Start: 04-03-2023 End: 04-27-[address] Tyron Knight Work Phone: [facility] Work Phone: Start: 02-21-2023 End: 02-21-[address] Tyron Knight Work Phone: [facility] Work Phone: Start: 12-02-2022 End: 12-02-[address] Tyron Knight Work Phone: [facility] Work Phone: Start: 12-02-2022 End: 12-02-[address] Tyron Knight Work Phone: [facility] Work Phone: Start: 11-26-2022 End: 11-26-[address] Tyron Knight Work Phone: [facility] Work Phone: Start: 11-26-2022 End: 11-26-[address] Tyron Knight Work Phone: [facility] Work Phone: Start: 11-21-2022 Non-patient / Non-visit Dr. Tyron Knight Work Phone: [facility] Work Phone: Start: 11-21-2022 End: 11-21-[address] Tyron Knight Work Phone: [facility] Work Phone: Start: 11-21-2022 End: 11-21-[address] Tyron Knight Work Phone: [facility]ometry Work Phone: Start: 11-12-2022 End: 11-12-[address] Tyron Knight Work Phone: [facility]-Ultrasound, [facility] Work Phone: Start: 11-07-2022 End: 11-07-[address] Tyron Knight Work Phone: [facility] Work Phone: Start: 11-07-2022 End: 11-07-[address] Tyron Knight Work Phone: [facility] Start: 10-18-2022 End: 10-18-[address] Tyron Knight Work Phone: [facility] Work Phone: Start: 05-17-2022 End: 05-17-[address] Tyron Knight Work Phone: [facility] Start: 05-10-2022 End: 05-10-[address] Tyron Knight Work Phone: [facility] Work Phone: Start: 05-10-2022 End: 05-10-[address] Tyron Knight Work Phone: [facility] Start: 05-02-2022 Non-patient / Non-visit Dr. Tyron Knight Work Phone: [facility] Start: 05-02-2022 End: 05-02-2022 Admission to same day surgery center [facility] Start: 03-06-2022 End: 03-06-[address] Tyron Knight Work Phone: [facility] Start: 01-29-2022 End: 01-29-[address] Tyron Knight Work Phone: [facility] Start: 12-26-2021 End: 12-26-[address] Tyron Knight Work Phone: [facility] Work Phone: Start: 12-26-2021 End: 12-26-[address] Tyron Knight Work Phone: [facility] Start: 12-19-2021 End: 12-19-[address] Tyron Knight Work Phone: [facility] Work Phone: Start: 12-19-2021 End: 12-19-[address] Tyron Knight Work Phone: [facility] Start: 12-19-2021 End: 12-19-[address] Tyron Knight Work Phone: [facility] Start: 10-19-2021 End: 10-19-2021 Patient encounter procedure [facility] Start: 09-27-2021 End: 09-27-2021 Patient encounter procedure [facility] Start: 06-28-2021 End: 06-28-2021 Patient encounter procedure [facility] Start: 04-25-2017 End: 04-25-2017 Ambulatory TY (GAS METER CHECKER) [facility] Start: 04-07-2017 End: 04-07-2017 Ambulatory RYAN ROSS [facility] Start: 04-01-2017 End: 04-03-2017 Ambulatory TY (GAS METER CHECKER) [facility] Procedures Date Procedure Procedure Detail Performing Clinician [...] elastography of liver ABD Limited w/ Elastography [facility] Start: 05-02-2022 Egd insert guide wire dilator passage esophagus EGD GUIDE WIRE INSERTION [facility] Start: 05-02-2022 Egd transoral biopsy single/multiple EGD BIOPSY SINGLE/MULTIPLE [facility] Start: 05-02-2022 Patient discharge [facility] Start: 12-19-2021 Aldolase [Enzymatic activity/volume] in Serum or Plasma [facility] Work Phone: Start: 12-19-2021 Angiotensin converting enzyme [Enzymatic activity/volume] in Serum or Plasma [facility] Work Phone: Start: 12-19-2021 Ceruloplasmin [Mass/volume] in Serum or Plasma [facility] Work Phone: Start: 12-19-2021 Copper [Moles/volume] in Serum or Plasma [facility] Work Phone: Start: 12-19-2021 Haptoglobin [Mass/volume] in Serum or Plasma [facility] Work Phone: Start: 12-19-2021 Mitochondria Ab [Presence] in Serum [facility] Work Phone: Start: 12-19-2021 Smooth muscle Ab [Presence] in Serum [facility] Work Phone: Start: 12-19-2021 Vitamin D, 1,25-dihydroxy measurement [facility] Work Phone: Start: 12-19-2021 [facility] Work Phone: Aldolase [Enzymatic activity/volume] in Serum or Plasma [facility] Work Phone: Alkaline phosphatase - bone isoenzyme measurement [facility] Work Phone: Alkaline phosphatase [Enzymatic activity/volume] in Serum or Plasma [facility] Work Phone: Alkaline phosphatase liver isoenzyme measurement [facility] Work Phone: Alpha 1 antitrypsin [Mass/volume] in Serum or Plasma [facility] Work Phone: Angiotensin converti ng enzyme [Enzymatic activity/volume] in Serum or Plasma [facility] Work Phone: Antibody to lupus La protein measurement [facility] Work Phone: Antibody to SS-A measurement [facility] Work Phone: CBC W Auto Different ial panel - Blood [facility] Centromere protein B Ab [Units/volume] in Serum [facility] Work Phone: Ceruloplasmin [Mass/volume] in Serum or Plasma [facility] Work Phone: Chromatin Ab [Units/volume] in Serum or Plasma [facility] Work Phone: Colonoscopy [facility] Copper [Moles/volume ] in Serum or Plasma [facility] Work Phone: DNA double strand Ab [Units/volume] in Serum [facility] Work Phone: Gamma glutamyl transferase measurement [facility] Haptoglobin [Mass/vo lume] in Serum or Plasma [facility] Work Phone: Hepatic function panel [facility] Intestinal alkaline phosphatase measurement [facility] Work Phone: Anaid-1 extractable nuc lear Ab [Units/volume] in Serum [facility] Work Phone: Mitochondria Ab [Presence] in Serum [facility] Work Phone: Neutrophil cytoplasm ic Ab.classic [Units/volume] in Serum [facility] Work Phone: P-ANCA measurement [facility] Work Phone: Patient referral [facility] Work Phone: Prothrombin time [facility] Prothrombin time [facility] SCL-70 extractable nuclear Ab [Units/volume] in Serum by Immunoassay [facility] Work Phone: Santacruz extractable nu clear Ab [Presence] in Serum [facility] Work Phone: Smooth muscle Ab [Presence] in Serum [facility] Work Phone: T4 free measurement [facility] Thyroid stimulating hormone measurement [facility] Ultrasound elastography [facility] Work Phone: US Abdomen limited [facility] Work Phone: Vitamin D, 1,25-dihy droxy measurement [facility] Work Phone: [facility] Payers Date Payer Category Payer Self-pay [id number] 2021 Medicare [id number] 2021 Unknown [id number] Self-pay SELF PAY BY PATIENT REQUEST [id number] Unknown [id number] Unknown [id number] Unknown [id number] Unknown 1930 [id number] Unknown [id number] Unknown [id number] Unknown [id number] Unknown [id number] Unknown [id number] Unknown [id number] Unknown [id number] Unknown [id number] Social History Date Type Detail [facility] Work Phone: Start: 1950 Sex Assigned At Female [facility] Start: 10-16-2021 End: 05-05-2023 Tobacco smoking status [facility]IS Unknown if ever smoked [facility] Start: 04-29-2024 [facility] Goals Date Patient Goal Desired Activity /State Mental Status Date Assessment Result Facility 05-02-2022 Cognitive function Voice/Name [facility] Work Phone: Evaluation note 12-03-2024 Note Date & Type Note Facility 12-03-2024 Evaluation note Diagnosis Onset Date Resolution GERD (gastroesophageal reflux disease) chronic December 03, 2024 3:20pm Metabolic dysfunction-associated steatotic liver disease (MASLD) chronic December 03, 2024 3:20pm Obesity chronic December 03 3:20pm [facility] Work Phone: Evaluation note 12-03-2024 Note Date & Type Note Facility 12-03-2024 Evaluation note Diagnosis Onset Date Resolution GERD (gastroesophageal reflux disease) chronic December 03, 2024 3:20pm Metabolic dysfunction-associated steatotic liver disease (MASLD) chronic December 03, 2024 3:20pm Obesity chronic December 03 3:20pm Encounter for routine gynecological examination noneactive December 20 9:03am [facility] Work Phone: Radiology Diagnostic study note 11-08-2024 Note Date & Type Note Facility 11-08-2024 Radiology Diagnostic study note [facility] Imaging Services [address] [place] [address] ABD Limited w/ Elastography MR#: [id number] Acct: [id number] Name: RACHEL MAY Rep #: [id number] : 1950 F 74 From: Micheal Ponce MD PCP: Dr. Tyron Knight MD Status: RE G CLI Study:ABD Limited w/ Elastography Date of Exa m: 11/08/24 Exam# [id number] Ordering Dr: Torrey Mares MD PROCEDURE: ABD [...] quadrant ascites. US/ABD Limited w/ Elastography IMPRESSION: [id number] degree of hepatic fibrosis. Reference Values: SRU [...] measurement may be in question. Reading Location: [place] [address] CC: Dr. Tyron Knight MD; Dr. Usman Mares MD ~ Pulmonology Physician: Signed [facility] Evaluation note Note Date & Type Note Facility Evaluation note No assessment information availa ble [facility] Work Phone: Evaluation note Note Date & Type Note Facility Evaluation note Diagnosis Onset Date Elevated LFTs acute [facility] Work Phone: Evaluation note Note Date & Type Note Facility Evaluation note Diagnosis Onset Date Obesity acute Screening for colon cancer a cute Dysphagia chronic STRATTON (nonalcoholic steatohepatitis) chronic Elevated LFTs chronic GERD (gastroesophageal reflux disease) chronic STRATTON (nonalcoholic steatohepatitis) chronic [facility] Work Phone: Evaluation note Note Date & Type Note Facility Evaluation note Diagnosis Onset Date GERD (gastroesophageal reflux disease) chronic STRATTON (nonalcoholic steatohepatitis) chronic [facility] Work Phone: Evaluation note Note Date & Type Note Facility Evaluation note Diagnosis Onset Date Resolution GERD (gastroesophageal reflux disease) chronic December 03, 2024 3:20pm Metabolic dysfunction-associated steatotic liver disease (MASLD) chronic December 03, 2024 3:20pm Obesity chronic December 03 3:20pm [facility] Work Phone: Reason for referral (narrative) Note Date & Type Note Facility Reason for referral (narrative) No reason for referral information available [facility] Work Phone: Summary Purpose Family History No Family History Records Found Relationship Condition Age at Onset Recorded Date/T nivia aunt Malignant neoplasm of breast Unknown Advance Directives No Advanced Directives Records Found Advance Directive Response Recorded Date/ Time Name of Medical Power of Advisory Intern NIC MAY April 30, 2022 2:47pm Living Will Yes April 30 2:47pm Power of Advisory Intern Yes April 30, 2 023 2:47pm Advance Directive Response Recorded Date/ Time Living Will Yes April 30 3:47pm Power of Advisory Intern Yes April 30, 2 023 3:47pm Advance Directive Response Recorded Date/ Time Living Will Yes April 30 2:47pm Power of Advisory Intern Yes April 30 023 2:47pm Advance Directive Response Recorded Date/ Time Living Will Yes May 05 3:10pm Power of Advisory Intern Yes May 05 024 3:10pm Chief Complaint [...] FU December 03, 2024 3:2 0pm Annual ([employer]) December 20, 2024 9: 03am Reason for Visit Admit Date GERD (gastroesophageal reflux disease) A ugust 2024 3:20pm Metabolic dysfunction-associ ated steatotic liver disease (MASLD) December 03, 2024 3:20pm Obesity December 03, 2024 3:2 0pm Encounter for routine gynecological exam ination December 20, 2024 9:03am Additional Source Comments INFORMATION SOURCE (unrecogn ized section and content) DATE CREATED AUTHOR 10/21/2017 [facility] DATE CREATED AUTHOR AUTHOR'S ORGANIZ ATION 02/21/2025 [facility] Goals (unrecognized section and content) Goals [...] Provider, Referr ing Provider Active Emilie Robertson GAS METER CHECKER, GAS METER CHECKER-C Attending Provider Active Team Status: Active Member [...] BE BASED ON THE PRIMARY CLINICAL RECORDS. [facility]. provides no warranty or guarantee of the accuracy or completeness of information in this document.
[2025-04-12] MEDS: Lidocaine 2% (20 ml mdv) 20 ML Vial INFILT (09:38)
[2025-04-12] MEDS: Ketorolac 30 MG/ML Syringe IM (10:46)
[2025-04-12 10:57] LABS: Pathology Sent to OSU SEE PATHOLOGY REPORT
== END | disposition home or self-care (01) ==
PROVIDERS: Radiology Nuclear Radiology; PCP Family Medicine; Referring Provider Internal Medicine; Visit Provider Internal Medicine
DX: K75.4 Autoimmune hepatitis (principal); R79.89 Other specified abnormal findings of blood chemistry; R73.03 Prediabetes
CPT/HCPCS: 47000; 36415; 76705; 76942; 76981; 85025; 85610; 85730